=== PATIENT | female | born 1960 | race Caucasian/White ===

== ENCOUNTER 2016-08-28 02:54 | Emergency (ER) | payer MEDICARE, OTHER ==
[~2016-08-28] VITALS: Ht 165.1 cm; Wt 88.5 kg
[~2016-08-28 02:54] MED LIST: EXENINJ SC; FLUO20CA19 PO; INSLANTI SC; INSUINJ48 SC; LISI10TA6 PO; METH20TA PO; SODI500S PO
[2016-08-28 03:47] LABS: Basophils # (auto) 0.1 uL; Basophils % (auto) 0.8 % (0.0-2.0); Eosinophils # (auto) 0.3 uL; Eosinophils % (auto) 3.2 % (0.0-7.0); Lymphocytes # (auto) 1.7 uL; Lymphocytes % (auto) 21.6 % (10.0-50.0); Mean Corpuscular Hemoglobin 29.5 pg (28.0-32.0); Mean Corpuscular Hgb Conc. 33.4 g/dL (32.0-36.0); Mean Corpuscular Volume 88.5 fL (80.0-100.0); Mean Platelet Volume 8.1 fL (7.4-10.4); Monocytes # (auto) 0.5 uL; Monocytes % (auto) 6.9 % (0.0-12.0); Neutrophils # (auto) 5.2 uL; Neutrophils % (auto) 67.5 % (37.0-80.0); Platelet Count (auto) 353 10^3/uL (140-450); Red Cell Distribution Width 13.3 % (11.6-16.0); White Blood Cell 7.8 10^3/uL (4.4-10.8)
[2016-08-28 04:06] LABS: Albumin 3.7 g/dL (3.4-5.0); Anion Gap 7 (5-15); Aspartate Aminotransferase 10 U/L (15-37); Blood Urea Nitrogen 9 mg/dL (7-18); Calcium 8.6 mg/dL (8.5-10.1); Carbon Dioxide 31 mmol/L (21-32); Chloride 105 mmol/L (98-107); GFR African American 102 mL/min; GFR Non-African American 85 mL/min; Glucose 119 mg/dL (74-106); Potassium 4.1 mmol/L (3.5-5.1); Salicylate < 1.7 mg/dL (2.8-20.0); Sodium 143 mmol/L (136-145)
[2016-08-28 04:09] LABS: Alkaline Phosphatase 66 U/L (45-117); Bilirubin, Total 0.3 mg/dL (0.2-1.0); Total Protein 7.5 g/dL (6.4-8.2)
[2016-08-28 04:12] LABS: Urine RBC None Seen /hpf (0 - 4)
[2016-08-28 04:29] LABS: Acetaminophen < 2.0 ug/mL (10-30)
[2016-08-28 04:36] LABS: Urine Bilirubin Negative (Negative); Urine Blood Negative /uL (Negative); Urine Color Yellow (Yellow); Urine Glucose Normal (Normal); Urine Ketone TRACE (Negative); Urine Mucus FEW (None Seen); Urine Nitrite Negative (Negative)
[2016-08-28] MEDS ORDERED: LORazepam 2MG/ML-1ML VIAL IV ONE (05:45)
[2016-08-28] MEDS ORDERED: ALPRAZolam 0.25 MG TAB PO ONE (09:45)
[2016-08-28] MEDS ORDERED: ACETAMINOPHEN 325 MG TAB PO ONE (09:45)
[2016-08-28 16:00] VITALS: BP 197/114
== END 2016-08-28 16:58 | disposition home or self-care (01) ==
LOC: EDBD 02:54 → ER 03:00
DX: T41.291A Poisoning by other general anesthetics, accidental (unintentional), initial encounter (principal); F41.9 Anxiety disorder, unspecified; F32.9 Major depressive disorder, single episode, unspecified; E11.9 Type 2 diabetes mellitus without complications; I10 Essential (primary) hypertension; Z87.440 Personal history of urinary (tract) infections; Z98.51 Tubal ligation status; Z90.49 Acquired absence of other specified parts of digestive tract; Y93.89 Activity, other specified; Y99.8 Other external cause status; Y92.89 Other specified places as the place of occurrence of the external cause
CPT/HCPCS: 36415; 51702; 80053; 80320; 80329; 81001; 82550; 82962; 83615; 85025; 93005; 94761; 96374; 99285; G0434; J2060

== ENCOUNTER 2016-12-07 22:35 | Emergency (ER) | payer MEDICARE, OTHER ==
[~2016-12-07] VITALS: Ht 165.1 cm; Wt 86.2 kg
[2016-12-07 23:18] LABS: Basophils # (auto) 0 uL; Basophils % (auto) 0.4 % (0.0-2.0); CONDITION AutoValidated; Eosinophils # (auto) 0.1 uL; Hematocrit 45.8 % (36.0-46.0); Hemoglobin 15.3 g/dL (12.2-16.2); Lymphocytes # (auto) 2.8 uL; Lymphocytes % (auto) 34.4 % (10.0-50.0); Mean Corpuscular Hemoglobin 29.5 pg (28.0-32.0); Mean Corpuscular Hgb Conc. 33.5 g/dL (32.0-36.0); Mean Corpuscular Volume 88.2 fL (80.0-100.0); Mean Platelet Volume 7.9 fL (7.4-10.4); Monocytes # (auto) 0.5 uL; Monocytes % (auto) 6.3 % (0.0-12.0); Neutrophils # (auto) 4.6 uL; Neutrophils % (auto) 57.9 % (37.0-80.0); Platelet Count (auto) 297 10^3/uL (140-450); Red Cell Distribution Width 13.3 % (11.6-16.0)
[2016-12-07 23:39] LABS: Albumin 3.4 g/dL (3.4-5.0); BUN/Creatinine Ratio 26.2; Calcium 8.4 mg/dL (8.5-10.1); Potassium 4.1 mmol/L (3.5-5.1)
[2016-12-07 23:42] LABS: Bilirubin, Total 0.2 mg/dL (0.2-1.0); Total Protein 7.1 g/dL (6.4-8.2)
[2016-12-08 06:23] LABS: Urine Bilirubin Negative (Negative); Urine Blood Negative /uL (Negative); Urine Color Yellow (Yellow); Urine Glucose Normal (Normal); Urine Ketone Negative (Negative); Urine Mucus FEW (None Seen); Urine Nitrite Negative (Negative); Urine RBC 1 /hpf (0 - 4); Urine Squamous Epithelial Cell FEW /hpf (<5); Urine Urobilinogen Normal (Negative); Urine pH 6.5 (5.0-8.0)
[2016-12-08] MEDS ORDERED: SODIUM CHLORIDE 0.9% 1,000 ML IV ONE (07:00)
[2016-12-08] MEDS ORDERED: KETOROLAC TROMETH 30 MG/ML 1ML VIAL IV ONE (07:30)
[2016-12-08 07:32] LABS: Basophils # (auto) 0 uL; Basophils % (auto) 0.3 % (0.0-2.0); CONDITION AutoValidated; Eosinophils # (auto) 0 uL; Eosinophils % (auto) 0.7 % (0.0-7.0); Hemoglobin 14.6 g/dL (12.2-16.2); Lymphocytes # (auto) 2.4 uL; Lymphocytes % (auto) 32.3 % (10.0-50.0); Mean Corpuscular Hemoglobin 29.4 pg (28.0-32.0); Mean Corpuscular Hgb Conc. 33.3 g/dL (32.0-36.0); Mean Corpuscular Volume 88.3 fL (80.0-100.0); Monocytes # (auto) 0.4 uL; Monocytes % (auto) 5.7 % (0.0-12.0); Neutrophils # (auto) 4.5 uL; Platelet Count (auto) 277 10^3/uL (140-450); Red Cell Distribution Width 13.6 % (11.6-16.0); White Blood Cell 7.4 10^3/uL (4.4-10.8)
[2016-12-08 07:46] VITALS: BP 119/71
[2016-12-08 07:52] LABS: Albumin 3.3 g/dL (3.4-5.0); Anion Gap 9 (5-15); Calcium 8.6 mg/dL (8.5-10.1); Carbon Dioxide 25 mmol/L (21-32); Chloride 108 mmol/L (98-107); Glucose 88 mg/dL (74-106); Potassium 4.2 mmol/L (3.5-5.1); Sodium 142 mmol/L (136-145)
[2016-12-08 07:57] LABS: Aspartate Aminotransferase 13 U/L (15-37); BUN/Creatinine Ratio 26.9; Bilirubin, Total 0.2 mg/dL (0.2-1.0); Blood Urea Nitrogen 14 mg/dL (7-18); GFR African American 156 mL/min; GFR Non-African American 129 mL/min; Total Protein 6.8 g/dL (6.4-8.2)
[2016-12-08 07:59] LABS: Alkaline Phosphatase 73 U/L (45-117)
[2016-12-08] MEDS ORDERED: NITROFURANTOIN (MONO) 100 mg CAP PO ONE (08:00)
[2016-12-08] MEDS ORDERED: LORazepam 0.5 MG TAB PO ONE (08:00)
== END 2016-12-08 10:12 | disposition home or self-care (01) ==
LOC: ER 22:35 → EDBD 22:35 → ER 12-08 10:12
DX: N39.0 Urinary tract infection, site not specified (principal); F41.9 Anxiety disorder, unspecified; F32.9 Major depressive disorder, single episode, unspecified; E11.9 Type 2 diabetes mellitus without complications; I10 Essential (primary) hypertension; Z90.89 Acquired absence of other organs; Z98.51 Tubal ligation status; Z90.49 Acquired absence of other specified parts of digestive tract; Z88.2 Allergy status to sulfonamides; Z88.1 Allergy status to other antibiotic agents; Z79.4 Long term (current) use of insulin
CPT/HCPCS: 36415; 80053; 80307; 81001; 84484; 85025; 93005; 96374; 99285; J1885; J7030

== ENCOUNTER 2017-06-02 20:43 | Emergency (ER) | payer BC, MEDICARE ==
[~2017-06-02] VITALS: Ht 175.3 cm; Wt 90.7 kg
[2017-06-02 23:50] LABS: Basophils # (auto) 0.1 uL; Basophils % (auto) 0.6 % (0.0-2.0); Eosinophils # (auto) 0.1 uL; Eosinophils % (auto) 0.8 % (0.0-7.0); Hematocrit 41.2 % (36.0-46.0); Lymphocytes # (auto) 1.7 uL; Lymphocytes % (auto) 18.9 % (10.0-50.0); Mean Corpuscular Hemoglobin 30.2 pg (28.0-32.0); Mean Corpuscular Volume 88.9 fL (80.0-100.0); Mean Platelet Volume 7.7 fL (6.9-10.8); Monocytes # (auto) 0.6 uL; Monocytes % (auto) 6.7 % (0.0-12.0); Neutrophils # (auto) 6.6 uL; Platelet Count (auto) 196 10^3/uL (140-450); Red Cell Distribution Width 13.6 % (11.8-14.3); White Blood Cell 9.1 10^3/uL (4.4-10.8)
[2017-06-03 00:02] LABS: Albumin 3.3 g/dL (3.4-5.0); Anion Gap 7 (5-15); Aspartate Aminotransferase 15 U/L (15-37); BUN/Creatinine Ratio 29.3; Blood Urea Nitrogen 17 mg/dL (7-18); Calcium 8.2 mg/dL (8.5-10.1); Carbon Dioxide 26 mmol/L (21-32); Chloride 105 mmol/L (98-107); GFR African American 137 mL/min; GFR Non-African American 113 mL/min; Glucose 108 mg/dL (74-106); Potassium 3.7 mmol/L (3.5-5.1); Sodium 138 mmol/L (136-145)
[2017-06-03 00:05] LABS: INR 0.98 (0.9-1.15); Partial Thromboplastin Time 25.3 sec (22.64-33.71); Prothrombin Time 10.7 sec (9.37-12.3)
[2017-06-03 00:07] LABS: Alkaline Phosphatase 77 U/L (45-117); Bilirubin, Total 0.3 mg/dL (0.2-1.0); Magnesium 1.8 mg/dL (1.6-2.6); Total Protein 6.8 g/dL (6.4-8.2)
[2017-06-03 00:15] LABS: Urine RBC None Seen /hpf (0 - 4)
[2017-06-03 00:21] LABS: Urine Bilirubin Negative (Negative); Urine Blood Negative /uL (Negative); Urine Color Yellow (Yellow); Urine Glucose Normal (Normal); Urine Ketone Negative (Negative); Urine Nitrite Negative (Negative); Urine Urobilinogen Normal (Negative); Urine pH 6.5 (5.0-8.0)
[2017-06-03 01:44] VITALS: BP 95/58
== END 2017-06-03 02:05 | disposition home or self-care (01) ==
LOC: EDBD 20:43 → ER 20:43
DX: S16.1XXA Strain of muscle, fascia and tendon at neck level, initial encounter (principal); S09.90XA Unspecified injury of head, initial encounter; R41.3 Other amnesia; E11.9 Type 2 diabetes mellitus without complications; I10 Essential (primary) hypertension; F32.9 Major depressive disorder, single episode, unspecified; Z98.51 Tubal ligation status; Z88.2 Allergy status to sulfonamides; Z88.8 Allergy status to other drugs, medicaments and biological substances; Z90.49 Acquired absence of other specified parts of digestive tract
CPT/HCPCS: 36415; 70450; 71010; 72125; 80053; 80307; 81001; 83735; 84484; 85025; 85610; 85730; 93005

== ENCOUNTER 2017-08-21 13:41 | Observation (INO) | payer BC, MEDICARE ==
[~2017-08-21] VITALS: Ht 165.1 cm; Wt 92.1 kg
[2017-08-21] MEDS ORDERED: MORPHINE SULFATE 4 MG/ML SYR/VIAL IV ONE ×2 (17:00→17:45)
[2017-08-21] MEDS ORDERED: ETOMIDATE (2MG/ML) 20ML VIAL IV ONE (17:00)
[2017-08-21] MEDS ORDERED: SODIUM CHLORIDE 0.9% 500 ML IVB ONE (17:00)
[2017-08-21] MEDS ORDERED: ONDANSETRON HCL 4 MG/2 ML VIAL IV ONE (17:00)
[2017-08-21] MEDS ORDERED: MORPHINE SULFATE 4 MG/ML SYR/VIAL ONE (17:37)
[2017-08-21 18:40] VITALS: BP 121/74
== END 2017-08-21 19:01 | disposition home or self-care (01) | DRG 563 ==
LOC: ER 13:41 → EDBD 13:41 → OVERFLOW 17:01 → ER 18:59
PROVIDERS: ADMIT Family Medicine; ATTEND Family Medicine
DX: S82.851A Displaced trimalleolar fracture of right lower leg, initial encounter for closed fracture (principal); I10 Essential (primary) hypertension; W01.0XXA Fall on same level from slipping, tripping and stumbling without subsequent striking against object, initial encounter; Y92.89 Other specified places as the place of occurrence of the external cause; Y93.89 Activity, other specified; Y99.8 Other external cause status
CPT/HCPCS: 73600; 96361; 96374; 96375; 96376; 99285; G0378; J2270; J2405; J7040

== ENCOUNTER 2017-08-25 15:02 | Inpatient (IN) | payer MEDICARE, OTHER ==
[~2017-08-25] VITALS: Ht 165.1 cm; Wt 95.8 kg
[2017-08-25] MEDS ORDERED: FLUO-125 PO (15:48)
[2017-08-25] MEDS ORDERED: NITROGLYCERIN 0.4 MG SL TAB SL PRN (16:45)
[2017-08-25] MEDS ORDERED: SODIUM CHLORIDE 0.9% 1,000 ML IV SCH (16:45)
[2017-08-25] MEDS ORDERED: MORPHINE SULFATE 4 MG/ML SYR/VIAL IV PRN (16:45)
[2017-08-25] MEDS ORDERED: ONDANSETRON ODT 4 MG TAB PO PRN (16:45)
[2017-08-25] MEDS: HYDROcodone-ACET 5/325MG TAB PO PRN ×2 (17:37→23:35)
[2017-08-25 17:40] LABS: Basophils # (auto) 0.1 uL; Basophils % (auto) 0.7 % (0.0-2.0); Eosinophils # (auto) 0 uL; Eosinophils % (auto) 0.6 % (0.0-7.0); Hematocrit 41.9 % (36.0-46.0); Lymphocytes # (auto) 1.9 uL; Lymphocytes % (auto) 24.3 % (10.0-50.0); Mean Corpuscular Hemoglobin 29.7 pg (28.0-32.0); Mean Corpuscular Hgb Conc. 33.5 g/dL (32.0-36.0); Mean Corpuscular Volume 88.7 fL (80.0-100.0); Monocytes # (auto) 0.7 uL; Monocytes % (auto) 9.1 % (0.0-12.0); Neutrophils % (auto) 65.3 % (37.0-80.0); Nucleated Red Blood Cells % 0.1 %; Platelet Count (auto) 268 10^3/uL (140-450); Red Blood Cells 4.72 10^6/uL (4.0-5.20); Red Cell Distribution Width 13.1 % (11.8-14.3); White Blood Cell 7.7 10^3/uL (4.4-10.8)
[2017-08-25 17:51] LABS: INR 0.99 (0.9-1.15); Prothrombin Time 10.8 sec (9.37-12.3)
[2017-08-25 18:06] LABS: Albumin 3.5 g/dL (3.4-5.0); BUN/Creatinine Ratio 23.3; Bilirubin, Total 0.7 mg/dL (0.2-1.0); Calcium 9.1 mg/dL (8.5-10.1); Potassium 3.9 mmol/L (3.5-5.1); Total Protein 7.4 g/dL (6.4-8.2)
[2017-08-25] MEDS: XYREM PO SCH ×2 (21:00→23:30)
[2017-08-25 21:08] LABS: Urine Bacteria NONE SEEN /hpf (None Seen); Urine Blood Negative /uL (Negative); Urine Mucus FEW (None Seen); Urine Specific Gravity 1.029 (1.001-1.035); Urine WBC 126 /hpf (0 - 5)
[2017-08-25] MEDS: ACETAMINOPHEN 325 MG TAB PO PRN (21:12)
[2017-08-25 22:00] VITALS: BP 109/67
[2017-08-25] MEDS ORDERED: PATIENTS OWN MEDICATION PO SCH (22:00)
[2017-08-26] MEDS ORDERED: LACTATED RINGER'S 1,000 ML IV ONE ×2 (04:00→17:45)
[2017-08-26 05:00] VITALS: BP 124/68
[2017-08-26] MEDS: HYDROcodone-ACET 5/325MG TAB PO PRN (05:36)
[2017-08-26] MEDS ORDERED: HYDROcodone-ACET 5/325MG TAB PO PRN ×2 (06:45→17:45)
[2017-08-26] MEDS ORDERED: HYDROmorphone HCL 2 MG/ML VL IV PRN ×2 (06:45→16:30)
[2017-08-26 08:00] VITALS: BP 134/67
[2017-08-26] MEDS: PANTOPRAZOLE 40 MG TAB PO SCH (09:54)
[2017-08-26] MEDS: FLUoxetine HCL 20 MG CAP PO SCH (09:54)
[2017-08-26] MEDS: MORPHINE SULFATE 4 MG/ML SYR/VIAL IV PRN ×2 (09:54→12:57)
[2017-08-26] MEDS: LISINOPRIL 10 MG TAB PO SCH (09:55)
[2017-08-26 12:00] VITALS: BP 113/59
[2017-08-26] MEDS ORDERED: ceFAZolin 1GM/50ML 100 ML IV ONE ×2 (14:34→22:28)
[2017-08-26] MEDS ORDERED: BUPIVACAINE 0.25% INJ 50ML VIAL ONE (15:12)
[2017-08-26] MEDS ORDERED: MIDAZOLAM HCL 1MG/1ML-2 ML VIAL ONE (15:24)
[2017-08-26] MEDS ORDERED: fentaNYL CITRATE 100 MCG/2 ML VL ONE (15:24)
[2017-08-26] MEDS ORDERED: MEPERIDINE HCL (50 MG/ML) 1 ML VIAL ONE ×2 (15:25→15:38)
[2017-08-26] MEDS ORDERED: DEXAMETHASONE SOD PHOS 10MG/1ML VIAL INJ ONE (15:38)
[2017-08-26] MEDS ORDERED: PROPOFOL 10 MG/ML 20 ML IV ONE (15:38)
[2017-08-26] MEDS ORDERED: MORPHINE SULFATE 4 MG/ML SYR/VIAL IV PRN (16:30)
[2017-08-26] MEDS ORDERED: hydrALAZINE HCL 20 MG/ML VL IV PRN (16:30)
[2017-08-26] MEDS ORDERED: ePHEDrine SULFATE 50 MG/ML AMP IV PRN (16:30)
[2017-08-26] MEDS ORDERED: MIDAZOLAM HCL 1MG/1ML-2 ML VIAL IV PRN (16:30)
[2017-08-26] MEDS ORDERED: ONDANSETRON HCL 4 MG/2 ML VIAL IV ONE (16:30)
[2017-08-26] MEDS ORDERED: KETOROLAC TROMETH 30 MG/ML 1ML VIAL IV ONE (16:30)
[2017-08-26] MEDS ORDERED: ACCU-CHEK COMFORT CURVE STRIP VI ONE (16:30)
[2017-08-26] MEDS ORDERED: LABETALOL HCL 5 MG/ML 4ML SYRINGE IV PRN (16:30)
[2017-08-26] MEDS ORDERED: KETOROLAC TROMETH 30 MG/ML 1ML VIAL ONE ×2 (16:36→18:44)
[2017-08-26] MEDS ORDERED: PHENYLEPHRINE HCL 10 MG/ML VL ONE (16:42)
[2017-08-26] MEDS ORDERED: MORPHINE SULFATE 4 MG/ML SYR/VIAL IV ONE (18:00)
[2017-08-26 21:30] VITALS: BP 118/65
[2017-08-26] MEDS: ceFAZolin 1GM 2 GM in D5W 5% 100 ML IV SCH (22:39)
[2017-08-26] MEDS: oxyCODONE ER 10 MG TAB PO SCH (22:41)
[2017-08-27] MEDS: MORPHINE SULFATE 4 MG/ML SYR/VIAL IV PRN ×8 (00:04→18:55)
[2017-08-27 05:00] VITALS: BP 101/61
[2017-08-27 05:34] LABS: Basophils # (auto) 0 uL; Basophils % (auto) 0.3 % (0.0-2.0); Eosinophils # (auto) 0 uL; Eosinophils % (auto) 0.1 % (0.0-7.0); Hematocrit 34.2 % (36.0-46.0); Hemoglobin 11.5 g/dL (12.2-16.2); Lymphocytes # (auto) 0.4 uL; Lymphocytes % (auto) 5.9 % (10.0-50.0); Mean Corpuscular Hgb Conc. 33.7 g/dL (32.0-36.0); Mean Corpuscular Volume 88.9 fL (80.0-100.0); Monocytes # (auto) 0.5 uL; Neutrophils # (auto) 6.1 uL; Neutrophils % (auto) 86.7 % (37.0-80.0); Platelet Count (auto) 229 10^3/uL (140-450); Red Blood Cells 3.85 10^6/uL (4.0-5.20); Red Cell Distribution Width 12.6 % (11.8-14.3)
[2017-08-27] MEDS ORDERED: ceFAZolin 1GM/50ML 100 ML IV ONE (05:37)
[2017-08-27 05:51] LABS: Potassium 4.1 mmol/L (3.5-5.1)
[2017-08-27 05:56] LABS: Albumin 2.4 g/dL (3.4-5.0); BUN/Creatinine Ratio 25.6; Calcium 7.9 mg/dL (8.5-10.1)
[2017-08-27 05:58] LABS: Bilirubin, Total 0.4 mg/dL (0.2-1.0)
[2017-08-27] MEDS: ceFAZolin 1GM 2 GM in D5W 5% 100 ML IV SCH ×3 (05:58→16:03)
[2017-08-27 09:00] VITALS: BP 102/56
[2017-08-27] MEDS: oxyCODONE ER 10 MG TAB PO SCH ×2 (11:51→21:39)
[2017-08-27] MEDS: PANTOPRAZOLE 40 MG TAB PO SCH (11:51)
[2017-08-27] MEDS: FLUoxetine HCL 20 MG CAP PO SCH (11:52)
[2017-08-27] MEDS: LISINOPRIL 10 MG TAB PO SCH (11:52)
[2017-08-27] MEDS: ENOXAPARIN SOD 40 MG/0.4 ML SYRINGE SC SCH (11:53)
[2017-08-27 12:56] VITALS: BP 136/73
[2017-08-27] MEDS: ACETAMINOPHEN 325 MG TAB PO PRN (16:19)
[2017-08-27 17:00] VITALS: BP 121/95
[2017-08-27 22:12] VITALS: BP 111/52
[2017-08-28] MEDS: MORPHINE SULFATE 4 MG/ML SYR/VIAL IV PRN ×4 (01:07→14:37)
[2017-08-28 05:27] LABS: Hematocrit 36.9 % (36.0-46.0); Hemoglobin 12.5 g/dL (12.2-16.2); Mean Corpuscular Hemoglobin 29.9 pg (28.0-32.0); Mean Corpuscular Volume 87.9 fL (80.0-100.0); Platelet Count (auto) 183 10^3/uL (140-450); Red Blood Cells 4.19 10^6/uL (4.0-5.20); White Blood Cell 2.5 10^3/uL (4.4-10.8)
[2017-08-28 05:29] VITALS: BP 115/56
[2017-08-28 05:37] LABS: Potassium 3.7 mmol/L (3.5-5.1)
[2017-08-28 06:02] LABS: Basophils % (manual) 0 (0.0-2.0); Blast Cells 0; Eosinophils % (manual) 0 (0-7); Myelocytes % 0; Promyelocytes % 0; Reactive Lymphocytes 0
[2017-08-28 06:52] LABS: Band Neutrophils % (manual) 5; Lymphocytes % (manual) 18 (10.0-50.0); Metamyelocytes % 1; Monocytes % (manual) 1 (0-12)
[2017-08-28 08:27] VITALS: BP 118/60
[2017-08-28] MEDS: oxyCODONE ER 10 MG TAB PO SCH (09:23)
[2017-08-28] MEDS: PANTOPRAZOLE 40 MG TAB PO SCH (09:23)
[2017-08-28] MEDS: FLUoxetine HCL 20 MG CAP PO SCH (09:25)
[2017-08-28] MEDS: LISINOPRIL 10 MG TAB PO SCH (09:25)
[2017-08-28] MEDS: ENOXAPARIN SOD 40 MG/0.4 ML SYRINGE SC SCH (09:26)
[2017-08-28 11:45] VITALS: BP 142/67
== END 2017-08-28 15:30 | disposition home health service (06) | DRG 494 ==
LOC: TELE-WESTW 15:02
PROVIDERS: ADMIT Internal Medicine; ATTEND Internal Medicine
PROC: 0QSGXZZ Reposition Right Tibia, External Approach (ICD-10-PCS; 2017-08-26)
PROC: BW1C1ZZ Fluoroscopy of Lower Extremity using Low Osmolar Contrast (ICD-10-PCS; 2017-08-26)
PROC: 0QSJ04Z Reposition Right Fibula with Internal Fixation Device, Open Approach (ICD-10-PCS; principal; 2017-08-26 15:32)
DX: S82.874A Nondisplaced pilon fracture of right tibia, initial encounter for closed fracture (principal); E11.9 Type 2 diabetes mellitus without complications; S82.854A Nondisplaced trimalleolar fracture of right lower leg, initial encounter for closed fracture; E66.9 Obesity, unspecified; F32.9 Major depressive disorder, single episode, unspecified; I10 Essential (primary) hypertension; M19.90 Unspecified osteoarthritis, unspecified site; W18.39XA Other fall on same level, initial encounter; Z82.49 Family history of ischemic heart disease and other diseases of the circulatory system; Z83.3 Family history of diabetes mellitus; Z90.49 Acquired absence of other specified parts of digestive tract; Z68.35 Body mass index [BMI] 35.0-35.9, adult; Y93.89 Activity, other specified; Y92.89 Other specified places as the place of occurrence of the external cause; Y99.8 Other external cause status
CPT/HCPCS: 36415; 71045; 73600; 76001; 80048; 80053; 81001; 82962; 85007; 85025; 85027; 85610; 86850; 86900; 86901; 97116; 97163; 97530; C1713; C1769; J0330; J0690; J1100; J1885; J2250; J2704; J3490; J7060

== ENCOUNTER 2020-02-11 13:44 | Emergency (ER) | payer BC, MEDICARE, OTHER ==
[~2020-02-11] VITALS: Ht 162.6 cm; Wt 102.1 kg
[~2020-02-11 13:44] MED LIST changes: -EXENINJ SC; +FLUO-125 PO; -FLUO20CA19 PO; -INSLANTI SC; -INSUINJ48 SC; +LISI-648 PO; -LISI10TA6 PO; -METH20TA PO
[2020-02-11] MEDS ORDERED: ETOMIDATE (2MG/ML) 20ML VIAL IV ONE (15:00)
[2020-02-11 18:45] VITALS: BP 154/74
== END 2020-02-11 16:49 | disposition home or self-care (01) ==
LOC: ER 13:44
DX: S43.005A Unspecified dislocation of left shoulder joint, initial encounter (principal); I10 Essential (primary) hypertension; Z88.2 Allergy status to sulfonamides; Z88.8 Allergy status to other drugs, medicaments and biological substances; W01.198A Fall on same level from slipping, tripping and stumbling with subsequent striking against other object, initial encounter; Y93.01 Activity, walking, marching and hiking; Y92.89 Other specified places as the place of occurrence of the external cause; Y99.8 Other external cause status
CPT/HCPCS: 23650; 73020; 73030; 99152

== ENCOUNTER 2021-08-17 22:39 | Emergency (ER) | payer BC ==
[~2021-08-17] VITALS: Ht 162.6 cm; Wt 104.3 kg
[~2021-08-17 22:39] MED LIST changes: -LISI-648 PO; +LISI-716 PO
[2021-08-18 00:37] LABS: Basophils # (auto) 0.1 10 ^3/uL (0-0.2); Basophils % (auto) 1.2 % (0.0-2.0); Eosinophils # (auto) 0.1 10 ^3/uL (0-0.8); Eosinophils % (auto) 1.8 % (0.0-7.0); Hematocrit 45.7 % (36.0-46.0); Hemoglobin 15.4 g/dL (12.2-16.2); Lymphocytes # (auto) 2.3 10 ^3/uL (0.4-5.4); Lymphocytes % (auto) 30.9 % (10.0-50.0); Mean Corpuscular Hemoglobin 29.9 pg (28.0-32.0); Mean Corpuscular Hgb Conc. 33.8 g/dL (32.0-36.0); Mean Corpuscular Volume 88.5 fL (80.0-100.0); Monocytes # (auto) 0.4 10 ^3/uL (0-1.3); Monocytes % (auto) 5.9 % (0.0-12.0); Neutrophils # (auto) 4.5 10 ^3/uL (1.6-8.6); Neutrophils % (auto) 60.2 % (37.0-80.0); Nucleated Red Blood Cells % 0.2 %; Red Blood Cells 5.16 10^6/uL (4.0-5.20); Red Cell Distribution Width 13.8 % (11.8-14.3); White Blood Cell 7.4 10^3/uL (4.4-10.8)
[2021-08-18 00:59] LABS: Albumin 3.8 g/dL (3.4-5.0); BUN/Creatinine Ratio 18.2; Calcium 8.9 mg/dL (8.5-10.1); Potassium 5.3 mmol/L (3.5-5.1)
[2021-08-18 01:02] LABS: Bilirubin, Total 0.3 mg/dL (0.2-1.0); Total Protein 7.5 g/dL (6.4-8.2)
[2021-08-18] MEDS ORDERED: IOHEXOL 300 MG/ML 100ML BOTTLE IJ ONE (01:26)
[2021-08-18] MEDS ORDERED: OXYCODONE W/ ACETAMINOPHEN 5/325MG TABLET PO ONE (03:45)
[2021-08-18 04:01] LABS: Urine Bacteria FEW /hpf (None Seen); Urine Blood Negative /uL (Negative); Urine WBC 10 /hpf (0 - 5)
[2021-08-18] MEDS ORDERED: SODIUM CHLORIDE 0.9% 2,000 ML IV ONE (05:15)
[2021-08-18] MEDS ORDERED: CEPH500C PO ×2 (05:36→07:02)
[2021-08-18] MEDS ORDERED: ONDA-144 PO ×2 (05:36→07:02)
[2021-08-18 06:40] VITALS: BP 142/71
== END 2021-08-18 06:55 | disposition home or self-care (01) ==
LOC: ER 22:39
DX: R42 Dizziness and giddiness (principal); I10 Essential (primary) hypertension; Z90.89 Acquired absence of other organs; Z90.49 Acquired absence of other specified parts of digestive tract; Z98.51 Tubal ligation status; Z88.2 Allergy status to sulfonamides; Z88.8 Allergy status to other drugs, medicaments and biological substances
CPT/HCPCS: 36415; 70460; 70491; 80053; 81001; 83880; 84484; 85025; 93005; 96360; 99285; J7030; Q9967

== ENCOUNTER 2021-11-02 06:32 | Inpatient (IN) | payer MEDICARE, BC ==
[~2021-11-02] VITALS: Ht 162.6 cm; Wt 116.8 kg
[~2021-11-02 06:32] MED LIST changes: +CEPH500C PO; +ONDA-144 PO
[2021-11-02] MEDS ORDERED: ONDANSETRON HCL 4 MG/2 ML VIAL IV ONE (07:00)
[2021-11-02] MEDS ORDERED: SODIUM CHLORIDE 0.9% 1,000 ML IV ONE (07:00)
[2021-11-02] MEDS ORDERED: InsuLIN REG 1unit/0.01ml Soln (100units/ml) IV ONE (07:00)
[2021-11-02 08:24] LABS: Basophils # (auto) 0.1 10 ^3/uL (0-0.2); Eosinophils # (auto) 0.1 10 ^3/uL (0-0.8); Eosinophils % (auto) 2.8 % (0.0-7.0); Hematocrit 40.3 % (36.0-46.0); Hemoglobin 13.5 g/dL (12.2-16.2); Lymphocytes # (auto) 1.1 10 ^3/uL (0.4-5.4); Lymphocytes % (auto) 21.7 % (10.0-50.0); Mean Corpuscular Hemoglobin 27.5 pg (28.0-32.0); Mean Corpuscular Hgb Conc. 33.4 g/dL (32.0-36.0); Mean Corpuscular Volume 82.3 fL (80.0-100.0); Monocytes # (auto) 0.4 10 ^3/uL (0-1.3); Monocytes % (auto) 7.4 % (0.0-12.0); Neutrophils # (auto) 3.4 10 ^3/uL (1.6-8.6); Neutrophils % (auto) 67.1 % (37.0-80.0); Nucleated Red Blood Cells % 0.1 %; Red Cell Distribution Width 15.4 % (11.8-14.3); White Blood Cell 5.1 10^3/uL (4.4-10.8)
[2021-11-02 08:45] LABS: Albumin 3.1 g/dL (3.4-5.0); Calcium 8.1 mg/dL (8.5-10.1); Potassium 4.5 mmol/L (3.5-5.1)
[2021-11-02 08:50] LABS: BUN/Creatinine Ratio 11.9; Bilirubin, Total 0.2 mg/dL (0.2-1.0); Total Protein 6.9 g/dL (6.4-8.2)
[2021-11-02 08:54] LABS: Urine Bacteria NONE SEEN /hpf (None Seen); Urine Blood TRACE /uL (Negative); Urine Specific Gravity 1.031 (1.001-1.035); Urine WBC 580 /hpf (0 - 5); Urine WBC Clumps PRESENT /hpf (None Seen)
[2021-11-02] MEDS ORDERED: cefTRIAXone 1GM/50ML D5W 50 ML IV ONE (09:15)
[2021-11-02] MEDS ORDERED: DEXTROSE (50%) 50ML SYRG IV PRN (11:45)
[2021-11-02] MEDS ORDERED: ONDANSETRON HCL 4 MG/2 ML VIAL IV PRN (11:45)
[2021-11-02] MEDS ORDERED: hydrALAZINE HCL 20 MG/ML VL IV PRN (12:15)
[2021-11-02] MEDS: InsuLIN REG 1unit/0.01ml Soln (100units/ml) SC SCH ×3 (12:54→20:15)
[2021-11-02] MEDS: ACCU-CHEK COMFORT CURVE STRIP VI SCH ×3 (12:54→20:15)
[2021-11-02 13:31] LABS: Cholesterol 134 mg/dL (< 200)
[2021-11-02 13:35] LABS: HDL Cholesterol 43 mg/dL (40-59); LDL Cholesterol 69 mg/dL (< 100); Triglycerides 199 mg/dL (< 150)
[2021-11-02 14:47] VITALS: BP 141/76
[2021-11-02] MEDS ORDERED: METF-370 PO (15:29)
[2021-11-02] MEDS ORDERED: PITO17.8 PO (15:31)
[2021-11-02] MEDS ORDERED: AMIT10TA8 PO (15:33)
[2021-11-02 17:19] VITALS: BP_SYST 151; BP_SYST 152; BP_DIAS 86; BP_DIAS 95
[2021-11-02] MEDS: MORPHINE SULFATE INJECTION 2 MG/ML SYRG IV PRN (20:49)
[2021-11-02 22:00] VITALS: BP 169/96
[2021-11-02 23:00] VITALS: BP 119/80
[2021-11-03] MEDS: ACCU-CHEK COMFORT CURVE STRIP VI SCH ×6 (00:06→22:00)
[2021-11-03] MEDS: InsuLIN REG 1unit/0.01ml Soln (100units/ml) SC SCH ×4 (00:08→21:36)
[2021-11-03] MEDS: MORPHINE SULFATE INJECTION 2 MG/ML SYRG IV PRN ×3 (00:59→22:10)
[2021-11-03] MEDS: HYDROcodone-ACET 5/325MG TAB PO PRN (03:09)
[2021-11-03 04:47] VITALS: BP 133/78
[2021-11-03 05:45] LABS: Albumin 2.9 g/dL (3.4-5.0); Calcium 8.3 mg/dL (8.5-10.1); Potassium 3.5 mmol/L (3.5-5.1)
[2021-11-03 05:46] LABS: BUN/Creatinine Ratio 11.9
[2021-11-03 05:50] LABS: Bilirubin, Total 0.4 mg/dL (0.2-1.0)
[2021-11-03 05:51] LABS: Basophils # (auto) 0 10 ^3/uL (0-0.2); Basophils % (auto) 0.8 % (0.0-2.0); Eosinophils # (auto) 0.2 10 ^3/uL (0-0.8); Hematocrit 39.2 % (36.0-46.0); Hemoglobin 12.9 g/dL (12.2-16.2); Lymphocytes # (auto) 1.7 10 ^3/uL (0.4-5.4); Lymphocytes % (auto) 31.8 % (10.0-50.0); Mean Corpuscular Hgb Conc. 32.9 g/dL (32.0-36.0); Mean Corpuscular Volume 81.9 fL (80.0-100.0); Monocytes # (auto) 0.4 10 ^3/uL (0-1.3); Neutrophils % (auto) 57.4 % (37.0-80.0); Nucleated Red Blood Cells % 0.1 %; Red Blood Cells 4.79 10^6/uL (4.0-5.20); Red Cell Distribution Width 15.3 % (11.8-14.3); White Blood Cell 5.3 10^3/uL (4.4-10.8)
[2021-11-03] MEDS: cefTRIAXone 1GM/50ML D5W 50 ML IV SCH (08:41)
[2021-11-03] MEDS: ENOXAPARIN SOD 40 MG/0.4 ML SYRINGE SC SCH (08:42)
[2021-11-03 09:00] VITALS: BP_SYST 114; BP_SYST 127; BP_DIAS 72; BP_DIAS 75
[2021-11-03 13:00] VITALS: BP 136/75
[2021-11-03 17:00] VITALS: BP 137/74
[2021-11-03] MEDS: metFORMIN HYDROCHLORIDE 850 MG TAB PO SCH (18:00)
[2021-11-03] MEDS ORDERED: glipiZIDE 5 MG TAB PO SCH (18:00)
[2021-11-03] MEDS ORDERED: DEXTROSE (50%) 50ML SYRG IV PRN (19:00)
[2021-11-03 20:00] VITALS: BP 118/63
[2021-11-03 21:56] VITALS: BP 118/68
[2021-11-04] MEDS: MORPHINE SULFATE INJECTION 2 MG/ML SYRG IV PRN ×4 (03:22→20:49)
[2021-11-04 04:51] VITALS: BP 118/68
[2021-11-04] MEDS: ACCU-CHEK COMFORT CURVE STRIP VI SCH ×4 (05:37→22:43)
[2021-11-04] MEDS: InsuLIN REG 1unit/0.01ml Soln (100units/ml) SC SCH ×4 (05:39→23:01)
[2021-11-04] MEDS: HYDROcodone-ACET 5/325MG TAB PO PRN ×2 (06:10→12:29)
[2021-11-04 09:00] VITALS: BP 120/66
[2021-11-04] MEDS: ENOXAPARIN SOD 40 MG/0.4 ML SYRINGE SC SCH (09:17)
[2021-11-04] MEDS: metFORMIN HYDROCHLORIDE 850 MG TAB PO SCH ×2 (09:17→17:08)
[2021-11-04] MEDS: cefTRIAXone 1GM/50ML D5W 50 ML IV SCH (09:17)
[2021-11-04 13:00] VITALS: BP 120/76
[2021-11-04 17:00] VITALS: BP 126/67
[2021-11-04 22:00] VITALS: BP 136/63
[2021-11-04] MEDS ORDERED: AMITRIPTYLINE HCL 10 MG TAB PO ONE (22:30)
[2021-11-05] MEDS: HYDROcodone-ACET 5/325MG TAB PO PRN ×2 (01:07→06:59)
[2021-11-05] MEDS: MORPHINE SULFATE INJECTION 2 MG/ML SYRG IV PRN ×2 (02:41→12:23)
[2021-11-05 05:00] VITALS: BP 124/65
[2021-11-05] MEDS: ACCU-CHEK COMFORT CURVE STRIP VI SCH ×2 (06:05→11:30)
[2021-11-05] MEDS: InsuLIN REG 1unit/0.01ml Soln (100units/ml) SC SCH ×2 (06:08→12:28)
[2021-11-05 09:00] VITALS: BP 106/73
[2021-11-05] MEDS: metFORMIN HYDROCHLORIDE 850 MG TAB PO SCH (09:55)
[2021-11-05] MEDS: ENOXAPARIN SOD 40 MG/0.4 ML SYRINGE SC SCH (09:55)
[2021-11-05] MEDS: cefTRIAXone 1GM/50ML D5W 50 ML IV SCH (09:56)
[2021-11-05 13:00] VITALS: BP 135/77
[2021-11-05 17:14] VITALS: BP 135/77
[2021-11-05 17:18] VITALS: BP 135/77
== END 2021-11-05 17:20 | disposition home or self-care (01) | DRG 638 ==
LOC: ER 06:32 → OVERFLOW 11:44 → CENTRAL 13:49
PROVIDERS: ADMIT Registered Nurse; ATTEND Internal Medicine
DX: E11.65 Type 2 diabetes mellitus with hyperglycemia (principal); N39.0 Urinary tract infection, site not specified; Z68.41 Body mass index [BMI] 40.0-44.9, adult; E66.01 Morbid (severe) obesity due to excess calories; F41.9 Anxiety disorder, unspecified; G56.03 Carpal tunnel syndrome, bilateral upper limbs; R31.9 Hematuria, unspecified; I10 Essential (primary) hypertension; Z88.2 Allergy status to sulfonamides; Z88.1 Allergy status to other antibiotic agents; Z82.49 Family history of ischemic heart disease and other diseases of the circulatory system; Z83.3 Family history of diabetes mellitus; Z98.51 Tubal ligation status; Z90.49 Acquired absence of other specified parts of digestive tract; Z98.1 Arthrodesis status
CPT/HCPCS: 36415; 71045; 80053; 80061; 81001; 82010; 82962; 83036; 83735; 85025; 87086; 87088; 87186; 93005; 96361; 96365; 96375; G0378; J0696; J1815

== ENCOUNTER 2022-02-19 09:12 | Emergency (ER) | payer BC, MEDICARE, OTHER ==
[~2022-02-19] VITALS: Ht 162.6 cm; Wt 113.6 kg
[~2022-02-19 09:12] MED LIST changes: +AMIT10TA8 PO; -CEPH500C PO; +METF-370 PO; -ONDA-144 PO; +PITO17.8 PO
[2022-02-19] MEDS: SODIUM CHLORIDE 0.9% 1,000 ML IV ONE (09:45)
[2022-02-19] MEDS: InsuLIN REG 1unit/0.01ml Soln (100units/ml) IV ONE (10:03)
[2022-02-19 10:35] LABS: Basophils # (auto) 0 10 ^3/uL (0-0.2); Basophils % (auto) 0.6 % (0.0-2.0); Eosinophils # (auto) 0.1 10 ^3/uL (0-0.8); Eosinophils % (auto) 1.2 % (0.0-7.0); Hematocrit 45.7 % (36.0-46.0); Hemoglobin 14.7 g/dL (12.2-16.2); Lymphocytes # (auto) 1.2 10 ^3/uL (0.4-5.4); Lymphocytes % (auto) 19.4 % (10.0-50.0); Mean Corpuscular Hemoglobin 27.4 pg (28.0-32.0); Mean Corpuscular Hgb Conc. 32.1 g/dL (32.0-36.0); Mean Corpuscular Volume 85.5 fL (80.0-100.0); Monocytes # (auto) 0.5 10 ^3/uL (0-1.3); Monocytes % (auto) 8.3 % (0.0-12.0); Neutrophils # (auto) 4.3 10 ^3/uL (1.6-8.6); Neutrophils % (auto) 70.5 % (37.0-80.0); Nucleated Red Blood Cells % 0.1 %; Red Blood Cells 5.35 10^6/uL (4.0-5.20); Red Cell Distribution Width 14.3 % (11.8-14.3); White Blood Cell 6.1 10^3/uL (4.4-10.8)
[2022-02-19 10:52] LABS: Urine Bacteria MANY /hpf (None Seen); Urine Blood 1+ /uL (Negative); Urine Specific Gravity 1.028 (1.001-1.035); Urine WBC 283 /hpf (0 - 5); Urine WBC Clumps PRESENT /hpf (None Seen)
[2022-02-19 10:58] LABS: Albumin 3.5 g/dL (3.4-5.0); Calcium 9.8 mg/dL (8.5-10.1); Potassium 4.8 mmol/L (3.5-5.1)
[2022-02-19 11:07] LABS: BUN/Creatinine Ratio 7.6; Bilirubin, Total 0.2 mg/dL (0.2-1.0); Total Protein 7.2 g/dL (6.4-8.2)
[2022-02-19] MEDS: cefTRIAXone 1GM/50ML D5W 50 ML IV ONE (12:10)
[2022-02-19] MEDS ORDERED: CIPR-173 PO (16:40)
[2022-02-19 17:00] VITALS: BP 119/61
== END 2022-02-19 17:52 | disposition home or self-care (01) ==
LOC: ER 09:12
DX: N39.0 Urinary tract infection, site not specified (principal); E11.65 Type 2 diabetes mellitus with hyperglycemia; Z90.49 Acquired absence of other specified parts of digestive tract; Z98.51 Tubal ligation status; Z88.2 Allergy status to sulfonamides; Z88.8 Allergy status to other drugs, medicaments and biological substances
CPT/HCPCS: 36415; 71046; 80053; 81001; 82010; 82962; 84484; 85025; 96361; 96365; 96375; 99285; J0696; J7030

== ENCOUNTER 2022-03-19 09:35 | Inpatient (IN) | payer MEDICARE, BC ==
[~2022-03-19] VITALS: Ht 162.6 cm; Wt 121.1 kg
[~2022-03-19 09:35] MED LIST changes: +CIPR-173 PO
[2022-03-19 10:42] LABS: Basophils # (auto) 0 10 ^3/uL (0-0.2); Basophils % (auto) 0.5 % (0.0-2.0); Eosinophils # (auto) 0 10 ^3/uL (0-0.8); Eosinophils % (auto) 0.8 % (0.0-7.0); Hematocrit 43.3 % (36.0-46.0); Hemoglobin 13.8 g/dL (12.2-16.2); Lymphocytes % (auto) 15.6 % (10.0-50.0); Mean Corpuscular Hemoglobin 28.1 pg (28.0-32.0); Mean Corpuscular Hgb Conc. 31.9 g/dL (32.0-36.0); Mean Corpuscular Volume 88.1 fL (80.0-100.0); Monocytes # (auto) 0.4 10 ^3/uL (0-1.3); Monocytes % (auto) 6.5 % (0.0-12.0); Neutrophils # (auto) 4.8 10 ^3/uL (1.6-8.6); Neutrophils % (auto) 76.6 % (37.0-80.0); Nucleated Red Blood Cells % 0.1 %; Red Blood Cells 4.91 10^6/uL (4.0-5.20); Red Cell Distribution Width 13.8 % (11.8-14.3); White Blood Cell 6.3 10^3/uL (4.4-10.8)
[2022-03-19 10:53] LABS: Albumin 3.5 g/dL (3.4-5.0); Calcium 9.1 mg/dL (8.5-10.1); Potassium 4.5 mmol/L (3.5-5.1)
[2022-03-19 11:02] LABS: BUN/Creatinine Ratio 10.3; Bilirubin, Total 0.4 mg/dL (0.2-1.0)
[2022-03-19 11:14] LABS: Alcohol, Urine < 3.0 mg/dL (0-10); Amphetamine Screen, Urine NEGATIVE (NEGATIVE); Barbiturate Scree,Urine NEGATIVE (NEGATIVE); Benzodiazephine Screen, Urine NEGATIVE (NEGATIVE); Cannabinoid Screen, Urine NEGATIVE (NEGATIVE); Cocaine Screen, Urine NEGATIVE (NEGATIVE); Opiate Scree,Urine NEGATIVE (NEGATIVE); Phencyclidine Screen, Urine NEGATIVE (NEGATIVE)
[2022-03-19 11:17] LABS: Urine Bacteria NONE SEEN /hpf (None Seen); Urine Blood TRACE /uL (Negative); Urine Specific Gravity 1.034 (1.001-1.035); Urine WBC 137 /hpf (0 - 5)
[2022-03-19] MEDS ORDERED: INSULIN LANTUS (GLARGINE) 1 /0.01ml (100units/ml) SC ONE (11:45)
[2022-03-19] MEDS ORDERED: InsuLIN R (HUMAN) 100 UNITS in SODIUM CHL 0.9% 99 ML IV SCH (11:45)
[2022-03-19] MEDS ORDERED: DEXTROSE (50%) 50ML SYRG IV PRN ×2 (11:45→19:00)
[2022-03-19] MEDS ORDERED: SODIUM CHLORIDE 0.9% 1,000 ML IV ONE ×2 (13:00)
[2022-03-19] MEDS: ACCU-CHEK COMFORT CURVE STRIP VI SCH ×9 (13:55→22:30)
[2022-03-19] MEDS ORDERED: InsuLIN REG 1unit/0.01ml Soln (100units/ml) IV ONE (14:00)
[2022-03-19] MEDS ORDERED: ONDANSETRON HCL 4 MG/2 ML VIAL IV ONE (14:00)
[2022-03-19] MEDS ORDERED: cefTRIAXone 1GM/50ML D5W 50 ML IV ONE (16:45)
[2022-03-19] MEDS ORDERED: DOCUSATE SOD 100 MG CAP PO PRN (19:00)
[2022-03-19] MEDS ORDERED: ONDANSETRON HCL 4 MG/2 ML VIAL IV PRN (19:00)
[2022-03-19] MEDS ORDERED: ALUM & MAG HYDROX-SIMETH LIQ(MAALOX) 30 ML PO PRN (19:00)
[2022-03-19] MEDS: SODIUM CHLORIDE 0.9% 1,000 ML IV SCH (19:00)
[2022-03-19 19:54] LABS: Cholesterol 125 mg/dL (< 200)
[2022-03-19 19:57] LABS: HDL Cholesterol 34 mg/dL (40-59); LDL Cholesterol 62 mg/dL (< 100); Triglycerides 378 mg/dL (< 150)
[2022-03-19 21:01] LABS: Magnesium 1.4 mg/dL (1.6-2.6); Phosphorus 3.2 mg/dL (2.5-4.90)
[2022-03-19] MEDS: InsuLIN REG 1unit/0.01ml Soln (100units/ml) SC SCH (22:00)
[2022-03-19] MEDS: INSULIN LANTUS (GLARGINE) 1 /0.01ml (100units/ml) SC SCH (22:00)
[2022-03-20] MEDS: SODIUM CHLORIDE 0.9% 1,000 ML IV SCH ×2 (03:00→10:28)
[2022-03-20] MEDS ORDERED: TEMAZEPAM 15 MG CAP PO ONE (03:30)
[2022-03-20] MEDS: ACCU-CHEK COMFORT CURVE STRIP VI SCH ×4 (07:51→22:24)
[2022-03-20] MEDS: InsuLIN REG 1unit/0.01ml Soln (100units/ml) SC SCH ×5 (07:58→22:31)
[2022-03-20] MEDS: metFORMIN HYDROCHLORIDE 500 MG TAB PO SCH ×2 (08:53→17:14)
[2022-03-20] MEDS ORDERED: INSULIN LANTUS (GLARGINE) 1 /0.01ml (100units/ml) SC SCH (10:00)
[2022-03-20] MEDS: [UNRECOGNIZED DRUG - OTHER] PO SCH (10:00)
[2022-03-20] MEDS: FLUoxetine HCL 20 MG CAP PO SCH (10:11)
[2022-03-20] MEDS: ENOXAPARIN SOD 40 MG/0.4 ML SYRINGE SC SCH (10:11)
[2022-03-20] MEDS: PANTOPRAZOLE 40 MG/10 ML VIAL INJ IV SCH (10:11)
[2022-03-20] MEDS: cefTRIAXone 1GM/50ML D5W 50 ML IV SCH (10:11)
[2022-03-20] MEDS: LISINOPRIL 10 MG TAB PO SCH (10:12)
[2022-03-20] MEDS: AMITRIPTYLINE HCL 10 MG TAB PO SCH (11:16)
[2022-03-20 17:00] VITALS: BP 116/75
[2022-03-20] MEDS: HYDROcodone-ACET 5/325MG TAB PO PRN ×2 (17:17→22:27)
[2022-03-20 20:00] VITALS: BP 109/69
[2022-03-20 22:00] VITALS: BP 109/69
[2022-03-20] MEDS: INSULIN LANTUS (GLARGINE) 1 /0.01ml (100units/ml) SC SCH (22:26)
[2022-03-20] MEDS: TEMAZEPAM 15 MG CAP PO ONE (23:44)
[2022-03-21] MEDS: TEMAZEPAM 15 MG CAP PO ONE (01:47)
[2022-03-21] MEDS: SODIUM CHLORIDE 0.9% 1,000 ML IV SCH (03:38)
[2022-03-21 04:58] VITALS: BP 95/65
[2022-03-21] MEDS: ACCU-CHEK COMFORT CURVE STRIP VI SCH ×4 (06:46→22:11)
[2022-03-21] MEDS: InsuLIN REG 1unit/0.01ml Soln (100units/ml) SC SCH ×4 (06:46→22:10)
[2022-03-21] MEDS: HYDROcodone-ACET 5/325MG TAB PO PRN ×4 (06:47→22:07)
[2022-03-21 09:00] VITALS: BP 108/77
[2022-03-21] MEDS: cefTRIAXone 1GM/50ML D5W 50 ML IV SCH (09:52)
[2022-03-21] MEDS: metFORMIN HYDROCHLORIDE 500 MG TAB PO SCH ×2 (09:52→16:54)
[2022-03-21] MEDS: PANTOPRAZOLE 40 MG/10 ML VIAL INJ IV SCH (09:52)
[2022-03-21] MEDS: FLUoxetine HCL 20 MG CAP PO SCH (09:52)
[2022-03-21] MEDS: LISINOPRIL 10 MG TAB PO SCH (09:53)
[2022-03-21] MEDS: ENOXAPARIN SOD 40 MG/0.4 ML SYRINGE SC SCH (09:53)
[2022-03-21] MEDS: [UNRECOGNIZED DRUG - OTHER] PO SCH (09:54)
[2022-03-21] MEDS: AMITRIPTYLINE HCL 10 MG TAB PO SCH (09:54)
[2022-03-21 13:00] VITALS: BP 126/78
[2022-03-21] MEDS: NITROFURANTOIN 100 mg CAP PO SCH ×2 (16:54→22:07)
[2022-03-21 17:00] VITALS: BP 120/74
[2022-03-21 20:00] VITALS: BP_SYST 109; BP_SYST 140; BP_DIAS 69; BP_DIAS 96
[2022-03-21] MEDS ORDERED: INSULIN LANTUS (GLARGINE) 1 /0.01ml (100units/ml) SC SCH (22:00)
[2022-03-21] MEDS ORDERED: TEMAZEPAM 15 MG CAP PO ONE (22:00)
[2022-03-22] MEDS: HYDROcodone-ACET 5/325MG TAB PO PRN ×2 (03:48→08:19)
[2022-03-22 05:00] VITALS: BP 110/61
[2022-03-22] MEDS: ACCU-CHEK COMFORT CURVE STRIP VI SCH ×2 (06:26→11:36)
[2022-03-22] MEDS: InsuLIN REG 1unit/0.01ml Soln (100units/ml) SC SCH ×2 (06:35→11:39)
[2022-03-22] MEDS: metFORMIN HYDROCHLORIDE 500 MG TAB PO SCH (07:55)
[2022-03-22 08:00] VITALS: BP 130/87
[2022-03-22] MEDS: PANTOPRAZOLE 40 MG/10 ML VIAL INJ IV SCH (08:16)
[2022-03-22] MEDS: NITROFURANTOIN 100 mg CAP PO SCH (08:17)
[2022-03-22] MEDS: FLUoxetine HCL 20 MG CAP PO SCH (08:17)
[2022-03-22] MEDS: LISINOPRIL 10 MG TAB PO SCH (08:19)
[2022-03-22] MEDS: [UNRECOGNIZED DRUG - OTHER] PO SCH (08:20)
[2022-03-22] MEDS: ENOXAPARIN SOD 40 MG/0.4 ML SYRINGE SC SCH (08:20)
[2022-03-22] MEDS: AMITRIPTYLINE HCL 10 MG TAB PO SCH (08:20)
[2022-03-22 09:00] VITALS: BP 130/87
[2022-03-22] MEDS ORDERED: METF-929 PO (09:35)
[2022-03-22] MEDS ORDERED: NITR-87 PO (09:35)
[2022-03-22 11:58] VITALS: BP 130/87
[2022-03-22 13:00] VITALS: BP 149/89
== END 2022-03-22 13:38 | disposition home or self-care (01) | DRG 638 ==
LOC: ER 09:35 → TELE 19:10 → TELE-WESTW 03-20 15:12
PROVIDERS: ADMIT Nurse Practitioner Family; ATTEND Nurse Practitioner Acute Care
DX: E11.65 Type 2 diabetes mellitus with hyperglycemia (principal); E87.1 Hypo-osmolality and hyponatremia; Z68.44 Body mass index [BMI] 60.0-69.9, adult; E66.01 Morbid (severe) obesity due to excess calories; F32.A Depression, unspecified; I10 Essential (primary) hypertension; F41.9 Anxiety disorder, unspecified; R00.2 Palpitations; Z20.822 Contact with and (suspected) exposure to COVID-19; N30.90 Cystitis, unspecified without hematuria; M19.90 Unspecified osteoarthritis, unspecified site; Z79.899 Other long term (current) drug therapy; Z80.0 Family history of malignant neoplasm of digestive organs; Z82.49 Family history of ischemic heart disease and other diseases of the circulatory system; Z83.3 Family history of diabetes mellitus; Z85.038 Personal history of other malignant neoplasm of large intestine; Z87.440 Personal history of urinary (tract) infections; Z90.49 Acquired absence of other specified parts of digestive tract; Z91.14 Patient's other noncompliance with medication regimen; Z98.51 Tubal ligation status; Z88.2 Allergy status to sulfonamides; Z88.8 Allergy status to other drugs, medicaments and biological substances; Z79.84 Long term (current) use of oral hypoglycemic drugs
CPT/HCPCS: 36415; 71046; 80053; 80061; 80307; 81001; 82010; 82962; 83036; 83735; 84100; 84443; 84484; 85025; 87086; 87088; 93005; 93306; 93970; 96361; 96365; 96366; 96372; 96375; 96376; C9113; G0378; J0696; J1815; J2405

== ENCOUNTER 2022-05-18 12:26 | Inpatient (IN) | payer MEDICARE, BC ==
[~2022-05-18] VITALS: Ht 162.6 cm; Wt 118.9 kg
[~2022-05-18 12:26] MED LIST changes: +METF-929 PO; +NITR-87 PO
[2022-05-18] MEDS ORDERED: SODIUM CHLORIDE 0.9% 1,000 ML IV ONE ×2 (13:15→14:00)
[2022-05-18 13:18] LABS: Basophils # (auto) 0 10 ^3/uL (0-0.2); Eosinophils # (auto) 0 10 ^3/uL (0-0.8); Eosinophils % (auto) 0.8 % (0.0-7.0); Hematocrit 47.1 % (36.0-46.0); Hemoglobin 15.4 g/dL (12.2-16.2); Lymphocytes % (auto) 21.6 % (10.0-50.0); Mean Corpuscular Hemoglobin 28.9 pg (28.0-32.0); Mean Corpuscular Hgb Conc. 32.8 g/dL (32.0-36.0); Mean Corpuscular Volume 88.2 fL (80.0-100.0); Monocytes # (auto) 0.3 10 ^3/uL (0-1.3); Monocytes % (auto) 7.2 % (0.0-12.0); Neutrophils # (auto) 3.3 10 ^3/uL (1.6-8.6); Neutrophils % (auto) 70.4 % (37.0-80.0); Nucleated Red Blood Cells % 0.1 %; Red Blood Cells 5.34 10^6/uL (4.0-5.20); Red Cell Distribution Width 13.5 % (11.8-14.3); White Blood Cell 4.7 10^3/uL (4.4-10.8)
[2022-05-18 13:34] LABS: Albumin 3.6 g/dL (3.4-5.0); BUN/Creatinine Ratio 13.2; Calcium 8.9 mg/dL (8.5-10.1); Potassium 4.7 mmol/L (3.5-5.1)
[2022-05-18 13:44] LABS: Bilirubin, Total 0.3 mg/dL (0.2-1.0); Total Protein 7.2 g/dL (6.4-8.2)
[2022-05-18] MEDS ORDERED: ONDANSETRON HCL 4 MG/2 ML VIAL IV ONE ×2 (15:15→17:45)
[2022-05-18 15:25] LABS: Lactic Acid w/Reflex 2.7 mmol/L (0.4-2.0)
[2022-05-18 15:30] LABS: Magnesium 1.9 mg/dL (1.6-2.6); Phosphorus 3.3 mg/dL (2.5-4.90)
[2022-05-18 16:43] LABS: Urine Bacteria NONE SEEN /hpf (None Seen); Urine Blood Negative /uL (Negative); Urine Specific Gravity 1.035 (1.001-1.035); Urine WBC 77 /hpf (0 - 5)
[2022-05-18] MEDS ORDERED: INSULIN LISPRO (HUMAN) 100 UNITS/ML ML SC ONE ×2 (17:00→17:45)
[2022-05-18] MEDS ORDERED: cefTRIAXone 1GM/50ML D5W 50 ML IV ONE (17:00)
[2022-05-18] MEDS ORDERED: MORPHINE SULFATE INJ 2 MG/ml SYRG IV ONE (19:45)
[2022-05-18] MEDS ORDERED: ACETAMINOPHEN 325 MG TAB PO PRN (21:15)
[2022-05-18] MEDS ORDERED: hydrALAZINE HCL 20 MG/ML VL IV PRN (21:15)
[2022-05-18] MEDS ORDERED: DOCUSATE SOD 100 MG CAP PO PRN (21:15)
[2022-05-18] MEDS ORDERED: ONDANSETRON HCL 4 MG/2 ML VIAL IV PRN (21:15)
[2022-05-18] MEDS ORDERED: SODIUM CHLORIDE 0.9% 1,000 ML IV SCH (21:15)
[2022-05-18] MEDS ORDERED: DEXTROSE (50%) 50ML SYRG IV PRN (21:15)
[2022-05-18] MEDS ORDERED: NITROGLYCERIN 0.4 MG SL TAB SL PRN (23:00)
[2022-05-18] MEDS ORDERED: MORPHINE SULFATE INJ 2 MG/ml SYRG IV PRN (23:00)
[2022-05-19] MEDS: ACCU-CHEK COMFORT CURVE STRIP VI SCH ×6 (00:35→20:33)
[2022-05-19] MEDS: InsuLIN REG 1unit/0.01ml Soln (100units/ml) SC SCH ×6 (00:37→20:35)
[2022-05-19] MEDS: HYDROcodone-ACET 5/325MG TAB PO PRN ×2 (01:31→14:39)
[2022-05-19] MEDS: MORPHINE SULFATE INJ 2 MG/ml SYRG IV PRN ×2 (02:49→20:33)
[2022-05-19 06:49] LABS: Basophils # (auto) 0 10 ^3/uL (0-0.2); Basophils % (auto) 0.7 % (0.0-2.0); Eosinophils # (auto) 0.1 10 ^3/uL (0-0.8); Eosinophils % (auto) 1.4 % (0.0-7.0); Hematocrit 40.2 % (36.0-46.0); Hemoglobin 13.5 g/dL (12.2-16.2); Lymphocytes # (auto) 1.9 10 ^3/uL (0.4-5.4); Lymphocytes % (auto) 31.6 % (10.0-50.0); Mean Corpuscular Hgb Conc. 33.7 g/dL (32.0-36.0); Mean Corpuscular Volume 85.9 fL (80.0-100.0); Monocytes # (auto) 0.5 10 ^3/uL (0-1.3); Monocytes % (auto) 8.2 % (0.0-12.0); Neutrophils # (auto) 3.6 10 ^3/uL (1.6-8.6); Neutrophils % (auto) 58.1 % (37.0-80.0); Red Blood Cells 4.68 10^6/uL (4.0-5.20); Red Cell Distribution Width 13.5 % (11.8-14.3); White Blood Cell 6.1 10^3/uL (4.4-10.8)
[2022-05-19 07:10] LABS: Potassium 3.6 mmol/L (3.5-5.1)
[2022-05-19 07:17] LABS: Bilirubin, Total 0.4 mg/dL (0.2-1.0); Calcium 8.7 mg/dL (8.5-10.1); Total Protein 5.7 g/dL (6.4-8.2)
[2022-05-19 09:40] VITALS: BP 106/56
[2022-05-19 10:45] VITALS: BP 106/56
[2022-05-19 13:00] VITALS: BP 118/62
[2022-05-19] MEDS: SODIUM CHLORIDE 0.9% 1,000 ML IV SCH ×2 (14:26→20:25)
[2022-05-19] MEDS: cefTRIAXone 1GM/50ML D5W 50 ML IV SCH (14:26)
[2022-05-19 17:19] VITALS: BP 114/54
[2022-05-19 21:12] VITALS: BP 109/54
[2022-05-20] MEDS: ACCU-CHEK COMFORT CURVE STRIP VI SCH ×7 (00:53→23:38)
[2022-05-20] MEDS: InsuLIN REG 1unit/0.01ml Soln (100units/ml) SC SCH ×7 (00:54→23:38)
[2022-05-20] MEDS: SODIUM CHLORIDE 0.9% 1,000 ML IV SCH ×5 (04:49→23:38)
[2022-05-20 05:00] VITALS: BP 104/52
[2022-05-20] MEDS: MORPHINE SULFATE INJ 2 MG/ml SYRG IV PRN (05:17)
[2022-05-20 08:15] VITALS: BP 107/69
[2022-05-20] MEDS: HYDROcodone-ACET 5/325MG TAB PO PRN ×4 (08:21→23:54)
[2022-05-20 09:00] VITALS: BP 107/69
[2022-05-20] MEDS: cefTRIAXone 1GM/50ML D5W 50 ML IV SCH (09:00)
[2022-05-20 13:00] VITALS: BP 125/77
[2022-05-20 15:40] LABS: Urine Bacteria NONE SEEN /hpf (None Seen); Urine Blood TRACE /uL (Negative); Urine Specific Gravity 1.018 (1.001-1.035); Urine WBC 90 /hpf (0 - 5)
[2022-05-20 17:00] VITALS: BP 129/59
[2022-05-20 22:00] VITALS: BP 109/72
[2022-05-21] MEDS ORDERED: ONDANSETRON ODT 4 MG TAB PO ONE (00:45)
[2022-05-21] MEDS: InsuLIN REG 1unit/0.01ml Soln (100units/ml) SC SCH ×5 (03:52→20:23)
[2022-05-21] MEDS: HYDROcodone-ACET 5/325MG TAB PO PRN ×3 (03:53→21:24)
[2022-05-21] MEDS: ACCU-CHEK COMFORT CURVE STRIP VI SCH ×5 (03:53→20:18)
[2022-05-21 05:00] VITALS: BP 104/51
[2022-05-21] MEDS: cefTRIAXone 1GM/50ML D5W 50 ML IV SCH (09:00)
[2022-05-21 09:06] VITALS: BP 108/58
[2022-05-21] MEDS: SODIUM CHLORIDE 0.9% 1,000 ML IV SCH ×2 (12:25→19:05)
[2022-05-21 13:00] VITALS: BP 126/66
[2022-05-21 17:00] VITALS: BP 135/73
[2022-05-21 22:00] VITALS: BP 128/71
[2022-05-22] MEDS: ACCU-CHEK COMFORT CURVE STRIP VI SCH ×5 (00:28→15:58)
[2022-05-22] MEDS: SODIUM CHLORIDE 0.9% 1,000 ML IV SCH ×2 (01:45→08:25)
[2022-05-22] MEDS: HYDROcodone-ACET 5/325MG TAB PO PRN ×2 (01:57→06:53)
[2022-05-22] MEDS: InsuLIN REG 1unit/0.01ml Soln (100units/ml) SC SCH ×5 (04:11→15:59)
[2022-05-22 05:00] VITALS: BP 113/49
[2022-05-22] MEDS: cefTRIAXone 1GM/50ML D5W 50 ML IV SCH (10:49)
[2022-05-22] MEDS: MORPHINE SULFATE INJ 2 MG/ml SYRG IV PRN (12:37)
[2022-05-22 13:07] VITALS: BP 125/67
== END 2022-05-22 17:31 | DRG 638 ==
LOC: ER 12:26 → TELE 23:03 → TELE-WESTW 05-19 09:13
PROVIDERS: ADMIT Nurse Practitioner Family; ATTEND Family Medicine
PROC: 05H933Z Insertion of Infusion Device into Right Brachial Vein, Percutaneous Approach (ICD-10-PCS; principal; 2022-05-22)
PROC: B54MZZA Ultrasonography of Right Upper Extremity Veins, Guidance (ICD-10-PCS; 2022-05-22)
DX: E11.10 Type 2 diabetes mellitus with ketoacidosis without coma (principal); E87.1 Hypo-osmolality and hyponatremia; N39.0 Urinary tract infection, site not specified; Z68.41 Body mass index [BMI] 40.0-44.9, adult; Z20.822 Contact with and (suspected) exposure to COVID-19; Z60.2 Problems related to living alone; E11.65 Type 2 diabetes mellitus with hyperglycemia; K31.84 Gastroparesis; E11.43 Type 2 diabetes mellitus with diabetic autonomic (poly)neuropathy; E66.01 Morbid (severe) obesity due to excess calories; Z79.84 Long term (current) use of oral hypoglycemic drugs; Z80.0 Family history of malignant neoplasm of digestive organs; Z82.49 Family history of ischemic heart disease and other diseases of the circulatory system; Z83.3 Family history of diabetes mellitus; Z90.49 Acquired absence of other specified parts of digestive tract; Z91.199 Patient's noncompliance with other medical treatment and regimen due to unspecified reason; Z91.14 Patient's other noncompliance with medication regimen; Z88.2 Allergy status to sulfonamides; Z88.8 Allergy status to other drugs, medicaments and biological substances
CPT/HCPCS: 36415; 36600; 70450; 71045; 74176; 80053; 81001; 82010; 82805; 82962; 83036; 83605; 83690; 83735; 84100; 84484; 85025; 87040; 87086; 87426; 93005; 96361; 96365; 96372; 96375; 96376; 97163; 99291; G0378; J0696; J1815; J2405; Q0162

== ENCOUNTER 2022-07-13 09:12 | Inpatient (IN) | payer MEDICARE, BC ==
[~2022-07-13] VITALS: Ht 162.6 cm; Wt 122.0 kg
[2022-07-13 10:23] LABS: Basophils # (auto) 0 10 ^3/uL (0-0.2); Basophils % (auto) 0.4 % (0.0-2.0); Eosinophils # (auto) 0 10 ^3/uL (0-0.8); Eosinophils % (auto) 0.8 % (0.0-7.0); Hematocrit 41.1 % (36.0-46.0); Hemoglobin 13.5 g/dL (12.2-16.2); Lymphocytes # (auto) 0.6 10 ^3/uL (0.4-5.4); Mean Corpuscular Hemoglobin 29.4 pg (28.0-32.0); Mean Corpuscular Hgb Conc. 32.8 g/dL (32.0-36.0); Mean Corpuscular Volume 89.8 fL (80.0-100.0); Monocytes # (auto) 0.4 10 ^3/uL (0-1.3); Monocytes % (auto) 6.6 % (0.0-12.0); Neutrophils # (auto) 4.6 10 ^3/uL (1.6-8.6); Neutrophils % (auto) 81.2 % (37.0-80.0); Nucleated Red Blood Cells % 0.1 %; Red Blood Cells 4.58 10^6/uL (4.0-5.20); Red Cell Distribution Width 13.7 % (11.8-14.3); White Blood Cell 5.7 10^3/uL (4.4-10.8)
[2022-07-13] MEDS ORDERED: MECLIZINE HCL 25 MG TAB PO ONE (10:30)
[2022-07-13] MEDS ORDERED: LACTATED RINGER'S 1,000 ML IV ONE (10:30)
[2022-07-13 10:47] LABS: Calcium 8.4 mg/dL (8.5-10.1); Potassium 4.5 mmol/L (3.5-5.1)
[2022-07-13 10:51] LABS: BUN/Creatinine Ratio 25.8; Magnesium 1.7 mg/dL (1.6-2.6)
[2022-07-13 11:03] LABS: Bilirubin, Total 0.7 mg/dL (0.2-1.0); Total Protein 6.4 g/dL (6.4-8.2)
[2022-07-13] MEDS ORDERED: DEXTROSE (50%) 50ML SYRG IV PRN (18:00)
[2022-07-13] MEDS ORDERED: DOCUSATE SOD 100 MG CAP PO PRN (18:00)
[2022-07-13 19:01] LABS: Urine Bacteria MOD /hpf (None Seen); Urine Blood Negative /uL (Negative); Urine Budding Yeast MODERATE /hpf (None Seen); Urine Hyaline Cast FEW /lpf (0 - 2); Urine Mucus FEW (None Seen); Urine Specific Gravity 1.024 (1.001-1.035); Urine WBC 566 /hpf (0 - 5)
[2022-07-13] MEDS: ACCU-CHEK COMFORT CURVE STRIP VI SCH (22:02)
[2022-07-13] MEDS: InsuLIN REG 1unit/0.01ml Soln (100units/ml) SC SCH (22:11)
[2022-07-14] MEDS: ACETAMINOPHEN 325 MG TAB PO PRN ×2 (03:30→20:30)
[2022-07-14 06:22] LABS: Basophils # (auto) 0.1 10 ^3/uL (0-0.2); Basophils % (auto) 0.9 % (0.0-2.0); Eosinophils # (auto) 0.1 10 ^3/uL (0-0.8); Eosinophils % (auto) 1.3 % (0.0-7.0); Hematocrit 41.2 % (36.0-46.0); Hemoglobin 13.6 g/dL (12.2-16.2); Lymphocytes # (auto) 1.4 10 ^3/uL (0.4-5.4); Lymphocytes % (auto) 22.4 % (10.0-50.0); Mean Corpuscular Hemoglobin 29.3 pg (28.0-32.0); Mean Corpuscular Volume 88.8 fL (80.0-100.0); Monocytes # (auto) 0.5 10 ^3/uL (0-1.3); Monocytes % (auto) 8.2 % (0.0-12.0); Neutrophils # (auto) 4.1 10 ^3/uL (1.6-8.6); Neutrophils % (auto) 67.2 % (37.0-80.0); Nucleated Red Blood Cells % 0.3 %; Red Blood Cells 4.64 10^6/uL (4.0-5.20); White Blood Cell 6.2 10^3/uL (4.4-10.8)
[2022-07-14 06:32] LABS: Alanine Aminotransferase 24 U/L (13-56); Albumin 2.9 g/dL (3.4-5.0); Anion Gap 8 (5-15); Aspartate Aminotransferase 15 U/L (15-37); BUN/Creatinine Ratio 24.6; Blood Urea Nitrogen 14 mg/dL (7-18); Calcium 8.5 mg/dL (8.5-10.1); Carbon Dioxide 25 mmol/L (21-32); Chloride 105 mmol/L (98-107); GFR African American 138 mL/min; GFR Non-African American 114 mL/min; Glucose 227 mg/dL (74-106); Potassium 4.2 mmol/L (3.5-5.1); Sodium 138 mmol/L (136-145)
[2022-07-14 06:35] LABS: Alkaline Phosphatase 91 U/L (45-117); Bilirubin, Total 0.4 mg/dL (0.2-1.0); Total Protein 6.4 g/dL (6.4-8.2)
[2022-07-14] MEDS: ACCU-CHEK COMFORT CURVE STRIP VI SCH ×4 (06:51→22:05)
[2022-07-14] MEDS: InsuLIN REG 1unit/0.01ml Soln (100units/ml) SC SCH ×4 (06:56→22:04)
[2022-07-14] MEDS ORDERED: PANTOPRAZOLE 40 MG/10 ML VIAL INJ IV SCH (10:00)
[2022-07-14] MEDS: LISINOPRIL 10 MG TAB PO SCH (10:00)
[2022-07-14] MEDS: FLUoxetine HCL 20 MG CAP PO SCH (10:14)
[2022-07-14] MEDS: PANTOPRAZOLE 40 MG/10 ML VIAL INJ IV SCH (10:15)
[2022-07-14] MEDS ORDERED: cefTRIAXone 1GM/50ML D5W 50 ML IV ONE (12:00)
[2022-07-14 13:21] VITALS: BP 115/72
[2022-07-14] MEDS: SODIUM CHLORIDE 0.9% 1,000 ML IV SCH ×2 (13:32→19:30)
[2022-07-14 17:00] VITALS: BP 141/77
[2022-07-14 17:32] VITALS: BP 115/72
[2022-07-14] MEDS: ONDANSETRON HCL 4 MG/2 ML VIAL IV PRN (18:08)
[2022-07-14 20:00] VITALS: BP 152/90
[2022-07-14 22:00] VITALS: BP 152/90
[2022-07-15] MEDS: SODIUM CHLORIDE 0.9% 1,000 ML IV SCH ×4 (01:04→22:00)
[2022-07-15] MEDS: ACETAMINOPHEN 325 MG TAB PO PRN ×2 (01:46→12:53)
[2022-07-15 05:00] VITALS: BP 125/60
[2022-07-15] MEDS: ACCU-CHEK COMFORT CURVE STRIP VI SCH ×4 (06:51→22:00)
[2022-07-15] MEDS: InsuLIN REG 1unit/0.01ml Soln (100units/ml) SC SCH ×4 (06:53→22:00)
[2022-07-15 08:00] VITALS: BP 126/87
[2022-07-15] MEDS: cefTRIAXone 1GM/50ML D5W 50 ML IV SCH (08:26)
[2022-07-15] MEDS: PANTOPRAZOLE 40 MG/10 ML VIAL INJ IV SCH (08:26)
[2022-07-15] MEDS: HYDROcodone-ACET 7.5/325MG TAB PO PRN ×3 (08:27→22:18)
[2022-07-15] MEDS: LISINOPRIL 10 MG TAB PO SCH (08:28)
[2022-07-15] MEDS: FLUoxetine HCL 20 MG CAP PO SCH (08:29)
[2022-07-15 09:00] VITALS: BP 126/87
[2022-07-15 12:32] VITALS: BP 120/79
[2022-07-15] MEDS: ONDANSETRON HCL 4 MG/2 ML VIAL IV PRN (16:56)
[2022-07-15 17:00] VITALS: BP 143/77
[2022-07-15 22:00] VITALS: BP 121/70
[2022-07-16] MEDS: HYDROcodone-ACET 7.5/325MG TAB PO PRN ×2 (02:45→09:01)
[2022-07-16] MEDS: SODIUM CHLORIDE 0.9% 1,000 ML IV SCH ×2 (04:00→10:40)
[2022-07-16 05:00] VITALS: BP 125/75
[2022-07-16] MEDS: ACCU-CHEK COMFORT CURVE STRIP VI SCH ×3 (05:56→17:39)
[2022-07-16] MEDS: InsuLIN REG 1unit/0.01ml Soln (100units/ml) SC SCH ×3 (05:56→17:40)
[2022-07-16 08:00] VITALS: BP 131/81
[2022-07-16 08:30] VITALS: BP 131/81
[2022-07-16] MEDS: LISINOPRIL 10 MG TAB PO SCH (08:58)
[2022-07-16] MEDS: FLUoxetine HCL 20 MG CAP PO SCH (08:59)
[2022-07-16] MEDS: cefTRIAXone 1GM/50ML D5W 50 ML IV SCH (09:00)
[2022-07-16] MEDS: PANTOPRAZOLE 40 MG/10 ML VIAL INJ IV SCH (09:00)
[2022-07-16] MEDS: ONDANSETRON HCL 4 MG/2 ML VIAL IV PRN (09:01)
[2022-07-16 12:00] VITALS: BP 111/92
[2022-07-16] MEDS ORDERED: TEMAZEPAM 15 MG CAP PO PRN (14:15)
[2022-07-16] MEDS ORDERED: guaiFENesin-DM 100/10mg/5ml SYR PO PRN (14:15)
[2022-07-16 16:00] VITALS: BP 133/77
[2022-07-16 18:45] VITALS: BP 133/77
== END 2022-07-16 19:15 | DRG 872 ==
LOC: EDSEX 09:12 → ER 09:12 → EDBD 09:12 → OVERFLOW 17:52 → CENTRAL 07-14 10:29
PROVIDERS: ADMIT Nurse Practitioner Family; ATTEND Family Medicine
DX: A41.9 Sepsis, unspecified organism (principal); Z68.42 Body mass index [BMI] 45.0-49.9, adult; N39.0 Urinary tract infection, site not specified; E86.0 Dehydration; E11.65 Type 2 diabetes mellitus with hyperglycemia; E66.9 Obesity, unspecified; G47.419 Narcolepsy without cataplexy; R29.6 Repeated falls; I10 Essential (primary) hypertension; G89.29 Other chronic pain; F32.A Depression, unspecified; F41.9 Anxiety disorder, unspecified; M54.50 Low back pain, unspecified; M54.9 Dorsalgia, unspecified; Z60.2 Problems related to living alone; Z88.2 Allergy status to sulfonamides; Z88.1 Allergy status to other antibiotic agents; Z80.0 Family history of malignant neoplasm of digestive organs; Z82.49 Family history of ischemic heart disease and other diseases of the circulatory system; Z83.3 Family history of diabetes mellitus; Z91.199 Patient's noncompliance with other medical treatment and regimen due to unspecified reason
CPT/HCPCS: 36415; 36600; 70450; 71045; 80053; 81001; 82010; 82805; 82962; 83036; 83735; 83880; 84484; 85025; 87040; 87086; 87426; 93005; 93886; 96361; 96365; 96375; C9113; G0378; J0696; J1815; J2405

== ENCOUNTER 2022-08-13 21:40 | Emergency (ER) | payer MEDICARE, BC ==
[~2022-08-13] VITALS: Ht 162.6 cm; Wt 113.4 kg
[~2022-08-13 21:40] MED LIST changes: -CIPR-173 PO; -NITR-87 PO
[2022-08-13] MEDS ORDERED: LACTATED RINGER'S 1,000 ML IV ONE (23:00)
[2022-08-13 23:26] LABS: Basophils # (auto) 0.2 10 ^3/uL (0-0.2); Eosinophils # (auto) 0.1 10 ^3/uL (0-0.8); Eosinophils % (auto) 2.1 % (0.0-7.0); Hematocrit 41.8 % (36.0-46.0); Hemoglobin 14.4 g/dL (12.2-16.2); Lymphocytes # (auto) 1.6 10 ^3/uL (0.4-5.4); Lymphocytes % (auto) 25.5 % (10.0-50.0); Mean Corpuscular Hemoglobin 29.7 pg (28.0-32.0); Mean Corpuscular Hgb Conc. 34.4 g/dL (32.0-36.0); Mean Corpuscular Volume 86.4 fL (80.0-100.0); Monocytes # (auto) 0.4 10 ^3/uL (0-1.3); Monocytes % (auto) 5.8 % (0.0-12.0); Neutrophils # (auto) 4.1 10 ^3/uL (1.6-8.6); Neutrophils % (auto) 63.6 % (37.0-80.0); Nucleated Red Blood Cells % 0.1 %; Red Blood Cells 4.84 10^6/uL (4.0-5.20); Red Cell Distribution Width 13.4 % (11.8-14.3); White Blood Cell 6.4 10^3/uL (4.4-10.8)
[2022-08-13 23:38] LABS: INR 0.95 (0.9-1.15); Partial Thromboplastin Time 26.5 sec (24.6-33.4)
[2022-08-13 23:42] LABS: Albumin 3.2 g/dL (3.4-5.0); BUN/Creatinine Ratio 14.3; Calcium 9.1 mg/dL (8.5-10.1); Potassium 3.7 mmol/L (3.5-5.1)
[2022-08-13 23:45] LABS: Bilirubin, Total 0.2 mg/dL (0.2-1.0); Total Protein 6.9 g/dL (6.4-8.2)
[2022-08-14] MEDS ORDERED: ONDANSETRON ODT 4 MG TAB PO ONE (00:15)
[2022-08-14 10:00] VITALS: BP 109/62
== END 2022-08-14 11:22 | disposition home or self-care (01) ==
LOC: EDBD 21:40 → ER 21:44
DX: S00.80XA Unspecified superficial injury of other part of head, initial encounter (principal); K29.60 Other gastritis without bleeding; R42 Dizziness and giddiness; E11.65 Type 2 diabetes mellitus with hyperglycemia; F41.9 Anxiety disorder, unspecified; I10 Essential (primary) hypertension; Z90.49 Acquired absence of other specified parts of digestive tract; Z98.890 Other specified postprocedural states; W19.XXXA Unspecified fall, initial encounter; Y93.89 Activity, other specified; Y92.89 Other specified places as the place of occurrence of the external cause; Y99.8 Other external cause status
CPT/HCPCS: 36415; 70450; 71045; 71250; 72125; 74176; 80053; 80320; 83690; 84484; 85025; 85610; 85730; 93005; 96360; 96361; 99285; Q0162

== ENCOUNTER 2023-01-27 15:21 | Emergency (ER) | payer MEDICARE, BC ==
[~2023-01-27] VITALS: Ht 162.6 cm; Wt 108.0 kg
[2023-01-27 15:21] VITALS: BP 115/70; RESP 20; O2SAT 96
[~2023-01-27 15:21] MED LIST changes: +AMIT10TA10 PO; -AMIT10TA8 PO; -LISI-716 PO; +LISI10TA34 PO
[2023-01-27 16:03] LABS: Basophils # (auto) 0.1 10 ^3/uL (0-0.2); Basophils % (auto) 0.9 % (0.0-2.0); Eosinophils # (auto) 0.1 10 ^3/uL (0-0.8); Eosinophils % (auto) 0.9 % (0.0-7.0); Hematocrit 42.5 % (36.0-46.0); Hemoglobin 14.3 g/dL (12.2-16.2); Lymphocytes # (auto) 1.8 10 ^3/uL (0.4-5.4); Lymphocytes % (auto) 22.6 % (10.0-50.0); Mean Corpuscular Hemoglobin 29.1 pg (28.0-32.0); Mean Corpuscular Hgb Conc. 33.7 g/dL (32.0-36.0); Mean Corpuscular Volume 86.4 fL (80.0-100.0); Monocytes # (auto) 0.5 10 ^3/uL (0-1.3); Monocytes % (auto) 6.4 % (0.0-12.0); Neutrophils # (auto) 5.7 10 ^3/uL (1.6-8.6); Neutrophils % (auto) 69.2 % (37.0-80.0); Nucleated Red Blood Cells % 0.2 %; Red Blood Cells 4.92 10^6/uL (4.0-5.20); Red Cell Distribution Width 13.5 % (11.8-14.3); White Blood Cell 8.2 10^3/uL (4.4-10.8)
[2023-01-27 16:21] LABS: INR 0.95 (0.9-1.15); Partial Thromboplastin Time 22.6 SEC (24.5-34.5)
[2023-01-27 16:44] VITALS: PULSE 110
[2023-01-27 16:46] LABS: Albumin 3.3 g/dL (3.4-5.0); Calcium 8.2 mg/dL (8.5-10.1); Potassium 3.9 mmol/L (3.5-5.1)
[2023-01-27 16:49] LABS: BUN/Creatinine Ratio 15.9 (10.0-20.0); Bilirubin, Total 0.2 mg/dL (0.2-1.0)
== END 2023-01-27 19:55 | disposition left against medical advice (07) ==
LOC: EDBD 15:21 → ER 15:21 → EDUNIT# 15:21 → ER 19:55
DX: I11.0 Hypertensive heart disease with heart failure (principal); I50.9 Heart failure, unspecified; E11.9 Type 2 diabetes mellitus without complications; F41.9 Anxiety disorder, unspecified; Z86.73 Personal history of transient ischemic attack (TIA), and cerebral infarction without residual deficits; Z90.49 Acquired absence of other specified parts of digestive tract; Z98.890 Other specified postprocedural states; Z88.2 Allergy status to sulfonamides; Z88.8 Allergy status to other drugs, medicaments and biological substances; Z79.84 Long term (current) use of oral hypoglycemic drugs; Z79.899 Other long term (current) drug therapy
CPT/HCPCS: 36415; 71045; 80053; 83880; 84484; 85025; 85379; 85610; 85730; 93005

== ENCOUNTER 2023-04-09 11:42 | Emergency (ER) | payer MEDICARE, BC ==
[~2023-04-09] VITALS: Ht 165.1 cm; Wt 128.0 kg
[2023-04-09] MEDS ORDERED: SODIUM CHLORIDE 0.9% 1,000 ML IV ONE ×2 (13:00→15:00)
[2023-04-09 13:27] LABS: Alanine Aminotransferase 31 U/L (7-40); Albumin 4.1 g/dL (3.2-4.8); Alkaline Phosphatase 85 U/L (46-116); Anion Gap 9 (5-15); Aspartate Aminotransferase 12 U/L (13-40); BUN/Creatinine Ratio 23.2 (10.0-20.0); Blood Urea Nitrogen 16 mg/dL (9-23); Calcium 9.2 mg/dL (8.5-10.1); Carbon Dioxide 26 mmol/L (20-30); Chloride 100 mmol/L (98-107); Glucose 255 mg/dL (74-106); Potassium 4.1 mmol/L (3.5-5.1); Sodium 135 mmol/L (136-145)
[2023-04-09 13:28] LABS: Bilirubin, Total 0.4 mg/dL (0.2-1.0); Total Protein 6.6 g/dL (5.7-8.2)
[2023-04-09 13:29] LABS: Basophils # (auto) 0.1 10 ^3/uL (0-0.2); Basophils % (auto) 0.8 % (0.0-2.0); Eosinophils # (auto) 0.1 10 ^3/uL (0-0.8); Eosinophils % (auto) 1.5 % (0.0-7.0); Hematocrit 42.2 % (36.0-46.0); Hemoglobin 14.2 g/dL (12.2-16.2); Lymphocytes # (auto) 1.8 10 ^3/uL (0.4-5.4); Lymphocytes % (auto) 22.8 % (10.0-50.0); Mean Corpuscular Hemoglobin 29.2 pg (28.0-32.0); Mean Corpuscular Hgb Conc. 33.7 g/dL (32.0-36.0); Mean Corpuscular Volume 86.6 fL (80.0-100.0); Monocytes # (auto) 0.5 10 ^3/uL (0-1.3); Monocytes % (auto) 6.9 % (0.0-12.0); Neutrophils # (auto) 5.4 10 ^3/uL (1.6-8.6); Nucleated Red Blood Cells % 0.1 %; Red Blood Cells 4.87 10^6/uL (4.0-5.20); Red Cell Distribution Width 13.8 % (11.8-14.3); White Blood Cell 7.9 10^3/uL (4.4-10.8)
[2023-04-09 14:30] LABS: Lactic Acid w/Reflex 2.9 mmol/L (0.4-2.0)
[2023-04-09 17:38] VITALS: BP 148/83; PULSE 103; RESP 18; TEMP 97.9; O2SAT 93
== END 2023-04-09 21:29 | disposition left against medical advice (07) ==
LOC: ER 11:42
DX: E11.65 Type 2 diabetes mellitus with hyperglycemia (principal); E86.0 Dehydration; R42 Dizziness and giddiness; I10 Essential (primary) hypertension; Z90.49 Acquired absence of other specified parts of digestive tract; Z88.2 Allergy status to sulfonamides
CPT/HCPCS: 36415; 70450; 71045; 80053; 82962; 83605; 83735; 84484; 85025; 93005; 96360; 99285; J7030

== ENCOUNTER 2023-05-22 12:13 | Inpatient (IN) | payer MEDICARE, BC, MEDICAID ==
[~2023-05-22] VITALS: Ht 162.6 cm; Wt 179.0 kg
[2023-05-22 12:54] LABS: Basophils # (auto) 0 10 ^3/uL (0-0.2); Basophils % (auto) 0.6 % (0.0-2.0); Eosinophils # (auto) 0.1 10 ^3/uL (0-0.8); Eosinophils % (auto) 0.7 % (0.0-7.0); Hematocrit 41.2 % (36.0-46.0); Hemoglobin 13.7 g/dL (12.2-16.2); Lymphocytes # (auto) 1.4 10 ^3/uL (0.4-5.4); Lymphocytes % (auto) 18.2 % (10.0-50.0); Mean Corpuscular Hemoglobin 28.5 pg (28.0-32.0); Mean Corpuscular Hgb Conc. 33.1 g/dL (32.0-36.0); Mean Corpuscular Volume 85.9 fL (80.0-100.0); Monocytes # (auto) 0.6 10 ^3/uL (0-1.3); Monocytes % (auto) 8.2 % (0.0-12.0); Neutrophils # (auto) 5.7 10 ^3/uL (1.6-8.6); Neutrophils % (auto) 72.3 % (37.0-80.0); Red Cell Distribution Width 13.9 % (11.8-14.3)
[2023-05-22 13:14] LABS: Alanine Aminotransferase 20 U/L (7-40); Albumin 4.4 g/dL (3.2-4.8); Alkaline Phosphatase 72 U/L (46-116); Anion Gap 6 (5-15); Aspartate Aminotransferase 13 U/L (13-40); BUN/Creatinine Ratio 13.7 (10.0-20.0); Bilirubin, Total 0.3 mg/dL (0.2-1.0); Blood Urea Nitrogen 10 mg/dL (9-23); Calcium 10.1 mg/dL (8.5-10.1); Carbon Dioxide 29 mmol/L (20-30); Chloride 102 mmol/L (98-107); Glucose 139 mg/dL (74-106); Potassium 4.1 mmol/L (3.5-5.1); Sodium 137 mmol/L (136-145); Total Protein 7.1 g/dL (5.7-8.2)
[2023-05-22] MEDS ORDERED: SODIUM CHLORIDE 0.9% 500 ML IV ONE (13:30)
[2023-05-22] MEDS ORDERED: ONDANSETRON HCL 4 MG/2 ML VIAL IV ONE (13:30)
[2023-05-22 13:35] LABS: Lipase 30 U/L (12-53)
[2023-05-22] MEDS ORDERED: KETOROLAC TROMETH 30 MG/ML 1ML VIAL IV ONE (13:45)
[2023-05-22 14:01] LABS: Urine Bacteria NONE SEEN /hpf (None Seen); Urine Blood 1+ /uL (Negative); Urine Clarity CLOUDY (Clear); Urine Color Yellow (Yellow); Urine Protein, UAD 2+ (Negative); Urine Specific Gravity 1.011 (1.001-1.035); Urine Urobilinogen Normal (Negative); Urine WBC 908 /hpf (0 - 5); Urine WBC Clumps PRESENT /hpf (None Seen)
[2023-05-22 16:00] VITALS: PULSE 88; RESP 16; O2SAT 95
[2023-05-22] MEDS ORDERED: levoFLOXacin 250 MG TAB PO ONE (17:15)
[2023-05-22] MEDS ORDERED: DEXTROSE (50%) 50ML SYRG IV PRN (17:30)
[2023-05-22] MEDS ORDERED: ACETAMINOPHEN 325 MG TAB PO PRN (17:30)
[2023-05-22] MEDS ORDERED: SODIUM CHLORIDE 0.9% 1,000 ML IV ONE (17:30)
[2023-05-22] MEDS ORDERED: cefTRIAXone 1GM/50ML D5W 50 ML IV ONE (17:30)
[2023-05-22] MEDS ORDERED: PANTOPRAZOLE 40 MG/10 ML VIAL INJ IV ONE (17:45)
[2023-05-22 18:20] LABS: Triglycerides 91 mg/dL (< 150)
[2023-05-22 18:21] LABS: LDL Cholesterol 65 mg/dL (< 100)
[2023-05-22 18:22] LABS: Cholesterol 110 mg/dL (< 200); HDL Cholesterol 38 mg/dL (40-59)
[2023-05-22] MEDS ORDERED: fentaNYL CITRATE 100 MCG/2 ML VL IV ONE (18:30)
[2023-05-22 19:45] VITALS: PULSE 84; RESP 18; O2SAT 91
[2023-05-22] MEDS: SODIUM CHLORIDE 0.9% 1,000 ML IV SCH (19:54)
[2023-05-22] MEDS: ONDANSETRON HCL 4 MG/2 ML VIAL IV PRN (21:12)
[2023-05-22] MEDS: KETOROLAC TROMETH 30 MG/ML 1ML VIAL IV PRN (21:12)
[2023-05-22] MEDS: InsuLIN REG 1unit/0.01ml Soln (100units/ml) SC SCH (21:39)
[2023-05-22] MEDS: ACCU-CHEK COMFORT CURVE STRIP VI SCH (21:39)
[2023-05-23] VITALS (7 sets, daily range): BP systolic 97–120; BP diastolic 46–67; PULSE 65–109; RESP 16–20; TEMP 97.7–98.1; O2SAT 93–100
[2023-05-23] MEDS: KETOROLAC TROMETH 30 MG/ML 1ML VIAL IV PRN ×2 (04:52→23:52)
[2023-05-23 06:56] LABS: Basophils # (auto) 0 10 ^3/uL (0-0.2); Basophils % (auto) 0.7 % (0.0-2.0); Eosinophils # (auto) 0.1 10 ^3/uL (0-0.8); Eosinophils % (auto) 1.5 % (0.0-7.0); Hematocrit 37.6 % (36.0-46.0); Hemoglobin 12.1 g/dL (12.2-16.2); Lymphocytes # (auto) 1.3 10 ^3/uL (0.4-5.4); Lymphocytes % (auto) 30.8 % (10.0-50.0); Mean Corpuscular Hemoglobin 28.2 pg (28.0-32.0); Mean Corpuscular Hgb Conc. 32.2 g/dL (32.0-36.0); Mean Corpuscular Volume 87.5 fL (80.0-100.0); Monocytes # (auto) 0.5 10 ^3/uL (0-1.3); Neutrophils # (auto) 2.4 10 ^3/uL (1.6-8.6); Nucleated Red Blood Cells % 0.1 %; White Blood Cell 4.3 10^3/uL (4.4-10.8)
[2023-05-23] MEDS: InsuLIN REG 1unit/0.01ml Soln (100units/ml) SC SCH ×4 (07:00→21:47)
[2023-05-23] MEDS: ACCU-CHEK COMFORT CURVE STRIP VI SCH ×4 (07:15→21:46)
[2023-05-23 07:17] LABS: Alanine Aminotransferase 18 U/L (7-40); Albumin 3.6 g/dL (3.2-4.8); Alkaline Phosphatase 55 U/L (46-116); Anion Gap 9 (5-15); Aspartate Aminotransferase 23 U/L (13-40); BUN/Creatinine Ratio 13.7 (10.0-20.0); Bilirubin, Total 0.2 mg/dL (0.2-1.0); Blood Urea Nitrogen 10 mg/dL (9-23); Calcium 8.7 mg/dL (8.5-10.1); Carbon Dioxide 25 mmol/L (20-30); Chloride 106 mmol/L (98-107); Glucose 135 mg/dL (74-106); Sodium 140 mmol/L (136-145); Total Protein 5.7 g/dL (5.7-8.2)
[2023-05-23] MEDS: PANTOPRAZOLE 40 MG/10 ML VIAL INJ IV SCH (09:44)
[2023-05-23] MEDS: FLUoxetine HCL 20 MG CAP PO SCH (09:44)
[2023-05-23] MEDS: ENOXAPARIN SOD 40 MG/0.4 ML SYRINGE SC SCH (09:44)
[2023-05-23] MEDS: SODIUM CHLORIDE 0.9% 1,000 ML IV SCH ×3 (09:45→22:30)
[2023-05-23] MEDS: cefTRIAXone 1GM/50ML D5W 50 ML IV SCH (09:45)
[2023-05-23] MEDS: AMITRIPTYLINE HCL 10 MG TAB PO SCH (09:51)
[2023-05-23] MEDS: LISINOPRIL 10 MG TAB PO SCH (09:53)
[2023-05-23] MEDS ORDERED: TAMSULOSIN HYDROCHLORIDE 0.4 MG CAP PO ONE (10:30)
[2023-05-23] MEDS: HYDROmorphone HCL 2 MG/ML VL/or syr IV PRN ×2 (13:08→19:57)
[2023-05-23 15:14] LABS: COVID19 ANTIGEN SOFIA FIA NEGATIVE (NEGATIVE)
[2023-05-23 15:15] LABS: Rapid Influenza A Negative (Negative); Rapid Influenza B Negative (Negative)
[2023-05-23] MEDS ORDERED: TAMSULOSIN HYDROCHLORIDE 0.4 MG CAP PO SCH (18:00)
[2023-05-23] MEDS: ONDANSETRON HCL 4 MG/2 ML VIAL IV PRN ×2 (18:35→23:52)
[2023-05-24] MEDS: HYDROmorphone HCL 2 MG/ML VL/or syr IV PRN ×2 (02:09→08:27)
[2023-05-24] MEDS: ONDANSETRON HCL 4 MG/2 ML VIAL IV PRN ×2 (03:53→08:28)
[2023-05-24 05:00] VITALS: BP 90/64; PULSE 78; RESP 20; TEMP 98.4; O2SAT 97
[2023-05-24] MEDS: ACCU-CHEK COMFORT CURVE STRIP VI SCH ×2 (06:23→12:20)
[2023-05-24] MEDS: InsuLIN REG 1unit/0.01ml Soln (100units/ml) SC SCH ×2 (06:24→12:21)
[2023-05-24 06:36] LABS: Basophils # (auto) 0 10 ^3/uL (0-0.2); Basophils % (auto) 0.9 % (0.0-2.0); Eosinophils # (auto) 0.1 10 ^3/uL (0-0.8); Eosinophils % (auto) 1.6 % (0.0-7.0); Hematocrit 38.7 % (36.0-46.0); Hemoglobin 12.6 g/dL (12.2-16.2); Lymphocytes # (auto) 1.6 10 ^3/uL (0.4-5.4); Lymphocytes % (auto) 36.1 % (10.0-50.0); Mean Corpuscular Hemoglobin 28.4 pg (28.0-32.0); Mean Corpuscular Hgb Conc. 32.5 g/dL (32.0-36.0); Mean Corpuscular Volume 87.4 fL (80.0-100.0); Monocytes # (auto) 0.3 10 ^3/uL (0-1.3); Monocytes % (auto) 7.7 % (0.0-12.0); Neutrophils # (auto) 2.3 10 ^3/uL (1.6-8.6); Neutrophils % (auto) 53.7 % (37.0-80.0); Red Blood Cells 4.44 10^6/uL (4.0-5.20); Red Cell Distribution Width 13.6 % (11.8-14.3); White Blood Cell 4.3 10^3/uL (4.4-10.8)
[2023-05-24 06:49] LABS: Anion Gap 9 (5-15); Carbon Dioxide 23 mmol/L (20-30); Chloride 106 mmol/L (98-107); Potassium 4.2 mmol/L (3.5-5.1); Sodium 138 mmol/L (136-145)
[2023-05-24 06:50] LABS: Calcium 8.2 mg/dL (8.7-10.4)
[2023-05-24 06:55] LABS: BUN/Creatinine Ratio 6.9 (10.0-20.0); Blood Urea Nitrogen 5 mg/dL (9-23); Glucose 147 mg/dL (74-106)
[2023-05-24 08:00] VITALS: BP 105/46; PULSE 68; PULSE 70; RESP 20; TEMP 97.9; O2SAT 93
[2023-05-24] MEDS: cefTRIAXone 1GM/50ML D5W 50 ML IV SCH (08:29)
[2023-05-24] MEDS: PANTOPRAZOLE 40 MG/10 ML VIAL INJ IV SCH (08:29)
[2023-05-24] MEDS: FLUoxetine HCL 20 MG CAP PO SCH (08:29)
[2023-05-24] MEDS: ENOXAPARIN SOD 40 MG/0.4 ML SYRINGE SC SCH (08:29)
[2023-05-24] MEDS: AMITRIPTYLINE HCL 10 MG TAB PO SCH (08:30)
[2023-05-24] MEDS: LISINOPRIL 10 MG TAB PO SCH (08:31)
[2023-05-24 09:00] VITALS: BP 145/79; PULSE 68; RESP 18; TEMP 98; O2SAT 94
[2023-05-24] MEDS: SODIUM CHLORIDE 0.9% 1,000 ML IV SCH (10:30)
[2023-05-24 13:00] VITALS: BP 149/79; PULSE 70; RESP 20; TEMP 98.1; O2SAT 95
[2023-05-24 13:21] VITALS: BP 141/79; PULSE 70; RESP 20; TEMP 98.1; O2SAT 95
== END 2023-05-24 15:30 | disposition home or self-care (01) | DRG 690 ==
LOC: ER 12:13 → EDUNIT# 12:13 → EDBD 12:13 → OVERFLOW 17:34 → WEST WING 05-23 01:40
PROVIDERS: ADMIT Internal Medicine; ATTEND Student in an Organized Health Care Education/Training Program
DX: N13.6 Pyonephrosis (principal); Z68.42 Body mass index [BMI] 45.0-49.9, adult; I10 Essential (primary) hypertension; K76.0 Fatty (change of) liver, not elsewhere classified; E66.01 Morbid (severe) obesity due to excess calories; R19.7 Diarrhea, unspecified; Z20.822 Contact with and (suspected) exposure to COVID-19; E11.9 Type 2 diabetes mellitus without complications; F41.9 Anxiety disorder, unspecified; Z83.3 Family history of diabetes mellitus; Z86.73 Personal history of transient ischemic attack (TIA), and cerebral infarction without residual deficits; Z98.51 Tubal ligation status; Z90.49 Acquired absence of other specified parts of digestive tract; Z71.3 Dietary counseling and surveillance
CPT/HCPCS: 36415; 74176; 80048; 80053; 80061; 81001; 82962; 83036; 83605; 83690; 84443; 84484; 85025; 85048; 87040; 87045; 87086; 87177; 87426; 87427; 87493; 87804; 93005; C9113; G0378; J0696; J1815; J1885; J2405

== ENCOUNTER 2023-05-26 13:50 | Emergency (ER) | payer MEDICARE, BC, MEDICAID ==
[~2023-05-26] VITALS: Ht 162.6 cm; Wt 118.1 kg
[2023-05-26 14:00] VITALS: BP 148/92; RESP 20; O2SAT 97
[2023-05-26 14:36] VITALS: PULSE 73
[2023-05-26 14:54] LABS: Basophils # (auto) 0 10 ^3/uL (0-0.2); Basophils % (auto) 0.7 % (0.0-2.0); Eosinophils # (auto) 0 10 ^3/uL (0-0.8); Eosinophils % (auto) 0.6 % (0.0-7.0); Hematocrit 42.6 % (36.0-46.0); Hemoglobin 13.9 g/dL (12.2-16.2); Lymphocytes # (auto) 1.5 10 ^3/uL (0.4-5.4); Lymphocytes % (auto) 23.4 % (10.0-50.0); Mean Corpuscular Hemoglobin 28.2 pg (28.0-32.0); Mean Corpuscular Hgb Conc. 32.7 g/dL (32.0-36.0); Mean Corpuscular Volume 86.2 fL (80.0-100.0); Monocytes # (auto) 0.4 10 ^3/uL (0-1.3); Monocytes % (auto) 6.6 % (0.0-12.0); Neutrophils # (auto) 4.6 10 ^3/uL (1.6-8.6); Neutrophils % (auto) 68.7 % (37.0-80.0); Nucleated Red Blood Cells % 0.2 %; Red Blood Cells 4.94 10^6/uL (4.0-5.20); White Blood Cell 6.6 10^3/uL (4.4-10.8)
[2023-05-26 15:08] LABS: Alanine Aminotransferase 30 U/L (7-40); Albumin 4.5 g/dL (3.2-4.8); Alkaline Phosphatase 72 U/L (46-116); Anion Gap 9 (5-15); Aspartate Aminotransferase 24 U/L (13-40); BUN/Creatinine Ratio 9.7 (10.0-20.0); Bilirubin, Total 0.2 mg/dL (0.2-1.0); Blood Urea Nitrogen 7 mg/dL (9-23); Calcium 9.8 mg/dL (8.5-10.1); Carbon Dioxide 27 mmol/L (20-30); Chloride 101 mmol/L (98-107); Glucose 121 mg/dL (74-106); Potassium 3.8 mmol/L (3.5-5.1); Sodium 137 mmol/L (136-145); Total Protein 6.9 g/dL (5.7-8.2)
[2023-05-26 15:30] LABS: Urine Bacteria NONE SEEN /hpf (None Seen); Urine Blood Negative /uL (Negative); Urine Clarity Clear (Clear); Urine Protein, UAD Negative (Negative); Urine Specific Gravity 1.003 (1.001-1.035); Urine Urobilinogen Normal (Negative); Urine WBC 1 /hpf (0 - 5); Urine pH 6.5 (5.0-8.0)
[2023-05-26 15:33] LABS: Urine Color STRAW (Yellow)
== END 2023-05-26 23:08 | disposition home or self-care (01) ==
LOC: ER 13:50 → EDBD 13:50 → ER 22:58
DX: R42 Dizziness and giddiness (principal); E11.649 Type 2 diabetes mellitus with hypoglycemia without coma; I10 Essential (primary) hypertension; Z90.49 Acquired absence of other specified parts of digestive tract; Z98.51 Tubal ligation status; Z86.73 Personal history of transient ischemic attack (TIA), and cerebral infarction without residual deficits; Z88.2 Allergy status to sulfonamides
CPT/HCPCS: 36415; 74176; 80053; 81001; 82962; 85025; 93005

== ENCOUNTER 2023-07-08 20:56 | Emergency (ER) | payer MEDICARE, BC, MEDICAID ==
[~2023-07-08] VITALS: Ht 162.6 cm; Wt 126.0 kg
[2023-07-09] MEDS ORDERED: METOCLOPRAMIDE HCL 5MG/ml INJ 2ml VIAL IM ONE (00:45)
[2023-07-09] MEDS ORDERED: HYDROmorphone HCL 2 MG/ML VL/or syr IM ONE (00:45)
[2023-07-09] MEDS ORDERED: ONDANSETRON ODT 4 MG TAB PO ONE (00:45)
[2023-07-09 01:10] LABS: Basophils # (auto) 0.1 10 ^3/uL (0-0.2); Basophils % (auto) 0.8 % (0.0-2.0); Eosinophils # (auto) 0.1 10 ^3/uL (0-0.8); Hematocrit 41.3 % (36.0-46.0); Hemoglobin 13.6 g/dL (12.2-16.2); Lymphocytes # (auto) 2.2 10 ^3/uL (0.4-5.4); Lymphocytes % (auto) 30.3 % (10.0-50.0); Mean Corpuscular Hemoglobin 28.2 pg (28.0-32.0); Mean Corpuscular Volume 85.5 fL (80.0-100.0); Monocytes # (auto) 0.5 10 ^3/uL (0-1.3); Neutrophils # (auto) 4.4 10 ^3/uL (1.6-8.6); Neutrophils % (auto) 59.9 % (37.0-80.0); Red Blood Cells 4.83 10^6/uL (4.0-5.20); Red Cell Distribution Width 14.5 % (11.8-14.3); White Blood Cell 7.3 10^3/uL (4.4-10.8)
[2023-07-09 01:29] LABS: Alanine Aminotransferase 18 U/L (7-40); Albumin 4.2 g/dL (3.2-4.8); Alkaline Phosphatase 62 U/L (46-116); Anion Gap 6 (5-15); Aspartate Aminotransferase 13 U/L (13-40); BUN/Creatinine Ratio 11.7 (10.0-20.0); Bilirubin, Total 0.4 mg/dL (0.2-1.0); Blood Urea Nitrogen 7 mg/dL (9-23); Carbon Dioxide 26 mmol/L (20-30); Chloride 106 mmol/L (98-107); Glucose 106 mg/dL (74-106); Lipase 32 U/L (12-53); Magnesium 1.7 mg/dL (1.6-2.6); Potassium 3.6 mmol/L (3.5-5.1); Sodium 138 mmol/L (136-145); Total Protein 6.7 g/dL (5.7-8.2)
[2023-07-09 03:07] LABS: Urine Bacteria FEW /hpf (None Seen); Urine Blood TRACE /uL (Negative); Urine Budding Yeast MODERATE /hpf (None Seen); Urine Clarity HAZY (Clear); Urine Color Yellow (Yellow); Urine Mucus FEW (None Seen); Urine Protein, UAD TRACE (Negative); Urine Specific Gravity 1.015 (1.001-1.035); Urine Urobilinogen Normal (Negative); Urine WBC 814 /hpf (0 - 5); Urine WBC Clumps PRESENT /hpf (None Seen); Urine pH 6.5 (5.0-8.0)
[2023-07-09 03:24] LABS: Amphetamine Screen, Urine Neg (NEGATIVE); Barbiturate Scree,Urine Neg (NEGATIVE); Benzodiazephine Screen, Urine Neg (NEGATIVE); Cannabinoid Screen, Urine Neg (NEGATIVE); Cocaine Screen, Urine Neg (NEGATIVE); Opiate Scree,Urine Neg (NEGATIVE); Phencyclidine Screen, Urine Neg (NEGATIVE)
[2023-07-09] MEDS ORDERED: FLUCONAZOLE 100 MG TAB PO ONE (04:30)
[2023-07-09] MEDS ORDERED: cefTRIAXone SOD 1,000 MG VL IM ONE (04:30)
[2023-07-09] MEDS ORDERED: PANT40TA2 PO (04:39)
[2023-07-09] MEDS ORDERED: DICY10CA PO (04:39)
[2023-07-09] MEDS ORDERED: NITR-52 PO (04:39)
[2023-07-09] MEDS ORDERED: METO-281 PO (04:39)
[2023-07-09] MEDS ORDERED: NITR-87 PO (04:39)
[2023-07-09] MEDS ORDERED: CEPH250C PO (04:39)
[2023-07-09 05:30] VITALS: BP 134/68; PULSE 74; RESP 18; O2SAT 97
== END 2023-07-09 05:40 | disposition home or self-care (01) ==
LOC: ER 20:56
DX: N39.0 Urinary tract infection, site not specified (principal); I10 Essential (primary) hypertension; E11.9 Type 2 diabetes mellitus without complications; F41.9 Anxiety disorder, unspecified; Z98.890 Other specified postprocedural states; Z88.8 Allergy status to other drugs, medicaments and biological substances; Z79.899 Other long term (current) drug therapy
CPT/HCPCS: 36415; 74022; 80053; 80307; 81001; 83690; 83735; 85025; 96372; 99284; J0696; J1170; J2765; Q0162

== ENCOUNTER 2023-07-11 01:17 | Inpatient (IN) | payer MEDICARE, BC, MEDICAID ==
[~2023-07-11] VITALS: Ht 162.6 cm; Wt 125.5 kg
[2023-07-11] VITALS (7 sets, daily range): BP systolic 110–141; BP diastolic 56–68; PULSE 63–81; RESP 14–19; TEMP 98–98.2; O2SAT 91–98
[~2023-07-11 01:17] MED LIST changes: +CEPH250C PO; +DICY10CA PO; +METO-281 PO; +NITR-52 PO; +NITR-87 PO; +PANT40TA2 PO
[2023-07-11] MEDS ORDERED: LORazepam 2MG/ML-1ML VIAL ONE (01:39)
[2023-07-11] MEDS ORDERED: DEXTROSE (50%) 50ML SYRG IV ONE (02:15)
[2023-07-11 03:03] LABS: Basophils # (auto) 0 10 ^3/uL (0-0.2); Eosinophils # (auto) 0.1 10 ^3/uL (0-0.8); Lymphocytes # (auto) 1.5 10 ^3/uL (0.4-5.4); Monocytes # (auto) 0.3 10 ^3/uL (0-1.3); Neutrophils # (auto) 2.6 10 ^3/uL (1.6-8.6); White Blood Cell 4.6 10^3/uL (4.4-10.8)
[2023-07-11 03:05] LABS: Basophils % (auto) 0.8 % (0.0-2.0); Eosinophils % (auto) 1.9 % (0.0-7.0); Hematocrit 40.6 % (36.0-46.0); Hemoglobin 13.5 g/dL (12.2-16.2); Lymphocytes % (auto) 32.5 % (10.0-50.0); Mean Corpuscular Hemoglobin 28.7 pg (28.0-32.0); Mean Corpuscular Hgb Conc. 33.3 g/dL (32.0-36.0); Mean Corpuscular Volume 86.4 fL (80.0-100.0); Monocytes % (auto) 6.8 % (0.0-12.0); Nucleated Red Blood Cells % 0.4 %; Red Cell Distribution Width 14.7 % (11.8-14.3)
[2023-07-11 03:35] LABS: Alanine Aminotransferase 21 U/L (7-40); Alkaline Phosphatase 62 U/L (46-116); Anion Gap 9 (5-15); Aspartate Aminotransferase 20 U/L (13-40); BUN/Creatinine Ratio 18.2 (10.0-20.0); Bilirubin, Total 0.2 mg/dL (0.2-1.0); Blood Urea Nitrogen 12 mg/dL (9-23); Carbon Dioxide 26 mmol/L (20-30); Chloride 105 mmol/L (98-107); Glucose 104 mg/dL (74-106); Magnesium 1.4 mg/dL (1.6-2.6); Potassium 4.1 mmol/L (3.5-5.1); Sodium 140 mmol/L (136-145); Total Protein 6.1 g/dL (5.7-8.2)
[2023-07-11 04:18] LABS: Blood Alcohol < 3.0 mg/dL (<10)
[2023-07-11 04:59] LABS: Platelet Estimate Decreased
[2023-07-11] MEDS ORDERED: ASPirin 81 mg TAB PO ONE (05:15)
[2023-07-11] MEDS ORDERED: PANTOPRAZOLE 40 MG/10 ML VIAL INJ IV ONE (05:15)
[2023-07-11] MEDS ORDERED: HEPARIN DRIP/D5W 100UNITS/ML 250 ML IV SCH (05:15)
[2023-07-11] MEDS ORDERED: ATORVASTATIN 20 MG TAB PO ONE (05:15)
[2023-07-11] MEDS ORDERED: ACETAMINOPHEN 325 MG TAB PO PRN (05:15)
[2023-07-11] MEDS ORDERED: NITROGLYCERIN 0.4 MG SL TAB SL PRN (05:15)
[2023-07-11] MEDS ORDERED: HEPARIN SODIUM (PORCINE) 5000 UNITS/ML 1ML VIAL IV ONE ×2 (05:15→06:45)
[2023-07-11] MEDS ORDERED: cefTRIAXone 1GM/50ML D5W 50 ML IV ONE (05:30)
[2023-07-11] MEDS ORDERED: SODIUM CHLORIDE 0.9% 1,000 ML IV ONE (05:30)
[2023-07-11] MEDS ORDERED: MORPHINE SULFATE 4 MG/ML SYR/VIAL IV ONE (05:30)
[2023-07-11] MEDS ORDERED: ONDANSETRON HCL 4 MG/2 ML VIAL IV ONE (05:30)
[2023-07-11 05:37] LABS: Triglycerides 142 mg/dL (< 150)
[2023-07-11 05:38] LABS: LDL Cholesterol 58 mg/dL (< 100)
[2023-07-11 05:39] LABS: Cholesterol 107 mg/dL (< 200); HDL Cholesterol 38 mg/dL (40-59)
[2023-07-11 06:01] LABS: INR 1.07 (0.9-1.15); Partial Thromboplastin Time < 20.0 SEC (24.5-34.5); Prothrombin Time 11.2 sec (9.3-11.8)
[2023-07-11] MEDS: SODIUM CHLOR 0.9% PF (SALINE LOCK) 10ML VIAL/SYR IV SCH ×3 (06:18→22:38)
[2023-07-11 07:54] LABS: Urine Epithelial Cast None Seen /hpf (<5)
[2023-07-11 08:25] LABS: Amphetamine Screen, Urine Neg (NEGATIVE); Barbiturate Scree,Urine Neg (NEGATIVE)
[2023-07-11 08:26] LABS: Benzodiazephine Screen, Urine Pos (NEGATIVE); Cannabinoid Screen, Urine Neg (NEGATIVE); Cocaine Screen, Urine Neg (NEGATIVE); Opiate Scree,Urine Neg (NEGATIVE); Phencyclidine Screen, Urine Neg (NEGATIVE)
[2023-07-11 08:27] LABS: Urine Bacteria FEW /hpf (None Seen); Urine Blood Negative /uL (Negative); Urine Clarity HAZY (Clear); Urine Color Yellow (Yellow); Urine Hyaline Cast FEW /lpf (0 - 2); Urine Mucus FEW (None Seen); Urine Protein, UAD TRACE (Negative); Urine Specific Gravity 1.018 (1.001-1.035); Urine Urobilinogen Normal (Negative); Urine WBC 50 /hpf (0 - 5)
[2023-07-11] MEDS ORDERED: DEXTROSE (50%) 50ML SYRG IV PRN (11:15)
[2023-07-11] MEDS: ACCU-CHEK COMFORT CURVE STRIP VI SCH ×3 (12:25→22:37)
[2023-07-11] MEDS: InsuLIN REG 1unit/0.01ml Soln (100units/ml) SC SCH ×3 (12:34→22:00)
[2023-07-11] MEDS ORDERED: MORPHINE SULFATE INJ 2 MG/ml SYRG IV PRN (12:45)
[2023-07-11] MEDS: MAGNESIUM SULFATE 1GM/100ML 100 ML IV SCH ×2 (13:53→16:12)
[2023-07-11] MEDS: METOPROLOL SUCCINATE XL 50 MG TAB PO SCH (13:57)
[2023-07-11] MEDS: ONDANSETRON HCL 4 MG/2 ML VIAL IV PRN (13:57)
[2023-07-11] MEDS ORDERED: CYCLOBENZAPRINE HCL 10 MG TAB PO ONE (17:00)
[2023-07-11] MEDS ORDERED: KETOROLAC TROMETH 30 MG/ML 1ML VIAL IV ONE (17:00)
[2023-07-11] MEDS ORDERED: DICYCLOMINE HCL (10MG/ML) 2 ML AMPULE IM ONE (18:15)
[2023-07-11] MEDS: OXYCODONE W/ ACETAMINOPHEN 5/325MG TABLET PO PRN (20:27)
[2023-07-11] MEDS ORDERED: DIPH2.5T73 PO (21:01)
[2023-07-11] MEDS ORDERED: MECL1TAB32 PO (21:01)
[2023-07-11] MEDS: PANTOPRAZOLE 40 MG TAB PO SCH (22:36)
[2023-07-11] MEDS: FUROSEMIDE 40 MG/4 ML VIAL IV SCH (22:37)
[2023-07-11] MEDS: DICYCLOMINE HCL 10 MG CAP PO SCH (22:37)
[2023-07-11] MEDS: ATORVASTATIN 20 MG TAB PO SCH (22:37)
[2023-07-12] VITALS (8 sets, daily range): BP systolic 102–135; BP diastolic 55–67; PULSE 54–75; RESP 17–19; TEMP 98–98.2; O2SAT 0–97
[2023-07-12] MEDS: OXYCODONE W/ ACETAMINOPHEN 5/325MG TABLET PO PRN ×3 (02:12→16:07)
[2023-07-12] MEDS: ONDANSETRON HCL 4 MG/2 ML VIAL IV PRN ×3 (03:40→16:08)
[2023-07-12] MEDS: DICYCLOMINE HCL 10 MG CAP PO SCH ×4 (05:24→21:54)
[2023-07-12] MEDS: SODIUM CHLOR 0.9% PF (SALINE LOCK) 10ML VIAL/SYR IV SCH ×3 (05:24→21:55)
[2023-07-12] MEDS: ACCU-CHEK COMFORT CURVE STRIP VI SCH ×4 (05:24→21:55)
[2023-07-12] MEDS: InsuLIN REG 1unit/0.01ml Soln (100units/ml) SC SCH ×4 (05:25→21:55)
[2023-07-12 06:48] LABS: Alanine Aminotransferase 18 U/L (7-40); Albumin 3.5 g/dL (3.2-4.8); Alkaline Phosphatase 60 U/L (46-116); Anion Gap 6 (5-15); Aspartate Aminotransferase 16 U/L (13-40); BUN/Creatinine Ratio 9.9 (10.0-20.0); Basophils # (auto) 0 10 ^3/uL (0-0.2); Basophils % (auto) 0.5 % (0.0-2.0); Bilirubin, Total 0.5 mg/dL (0.2-1.0); Blood Urea Nitrogen 7 mg/dL (9-23); Calcium 8.6 mg/dL (8.7-10.4); Carbon Dioxide 27 mmol/L (20-30); Chloride 105 mmol/L (98-107); Eosinophils # (auto) 0.1 10 ^3/uL (0-0.8); Eosinophils % (auto) 2.7 % (0.0-7.0); Glucose 110 mg/dL (74-106); Hematocrit 37.2 % (36.0-46.0); Hemoglobin 12.2 g/dL (12.2-16.2); Lymphocytes # (auto) 1.7 10 ^3/uL (0.4-5.4); Lymphocytes % (auto) 37.1 % (10.0-50.0); Mean Corpuscular Hemoglobin 28.1 pg (28.0-32.0); Mean Corpuscular Hgb Conc. 32.7 g/dL (32.0-36.0); Mean Corpuscular Volume 85.9 fL (80.0-100.0); Monocytes # (auto) 0.4 10 ^3/uL (0-1.3); Neutrophils # (auto) 2.3 10 ^3/uL (1.6-8.6); Neutrophils % (auto) 50.7 % (37.0-80.0); Nucleated Red Blood Cells % 0.1 %; Potassium 4.1 mmol/L (3.5-5.1); Red Blood Cells 4.33 10^6/uL (4.0-5.20); Red Cell Distribution Width 14.3 % (11.8-14.3); Sodium 138 mmol/L (136-145); Total Protein 5.7 g/dL (5.7-8.2); White Blood Cell 4.6 10^3/uL (4.4-10.8)
[2023-07-12] MEDS: cefTRIAXone 1GM/50ML D5W 50 ML IV SCH (09:19)
[2023-07-12] MEDS: FUROSEMIDE 40 MG/4 ML VIAL IV SCH ×2 (11:38→21:55)
[2023-07-12] MEDS: FLUoxetine HCL 20 MG CAP PO SCH (11:39)
[2023-07-12] MEDS: AMITRIPTYLINE HCL 10 MG TAB PO SCH (11:40)
[2023-07-12] MEDS: PANTOPRAZOLE 40 MG TAB PO SCH ×2 (11:40→21:54)
[2023-07-12] MEDS: LISINOPRIL 10 MG TAB PO SCH (11:40)
[2023-07-12] MEDS: METOPROLOL SUCCINATE XL 50 MG TAB PO SCH (11:40)
[2023-07-12] MEDS: MECLIZINE HCL 25 MG TAB PO PRN (14:44)
[2023-07-12] MEDS: PANCREATIC ENZYMES 4200 UNIT CAP PO SCH (18:26)
[2023-07-12] MEDS: ATORVASTATIN 20 MG TAB PO SCH (21:54)
[2023-07-13] VITALS (9 sets, daily range): BP systolic 100–116; BP diastolic 42–64; PULSE 56–92; RESP 16–18; TEMP 97.4–98.4; O2SAT 87–97
[2023-07-13] MEDS: OXYCODONE W/ ACETAMINOPHEN 5/325MG TABLET PO PRN ×4 (02:29→23:33)
[2023-07-13] MEDS: ONDANSETRON HCL 4 MG/2 ML VIAL IV PRN ×3 (02:30→19:48)
[2023-07-13] MEDS: SODIUM CHLOR 0.9% PF (SALINE LOCK) 10ML VIAL/SYR IV SCH ×3 (05:35→22:20)
[2023-07-13] MEDS: DICYCLOMINE HCL 10 MG CAP PO SCH ×4 (05:36→22:20)
[2023-07-13] MEDS: ACCU-CHEK COMFORT CURVE STRIP VI SCH ×4 (05:36→22:20)
[2023-07-13] MEDS: InsuLIN REG 1unit/0.01ml Soln (100units/ml) SC SCH ×4 (05:44→22:00)
[2023-07-13 06:46] LABS: Basophils # (auto) 0 10 ^3/uL (0-0.2); Basophils % (auto) 0.6 % (0.0-2.0); Eosinophils # (auto) 0.1 10 ^3/uL (0-0.8); Eosinophils % (auto) 1.6 % (0.0-7.0); Hematocrit 40.4 % (36.0-46.0); Hemoglobin 13.3 g/dL (12.2-16.2); Lymphocytes # (auto) 1.5 10 ^3/uL (0.4-5.4); Lymphocytes % (auto) 28.9 % (10.0-50.0); Mean Corpuscular Hemoglobin 28.4 pg (28.0-32.0); Mean Corpuscular Volume 86.2 fL (80.0-100.0); Monocytes # (auto) 0.4 10 ^3/uL (0-1.3); Monocytes % (auto) 8.6 % (0.0-12.0); Neutrophils # (auto) 3.1 10 ^3/uL (1.6-8.6); Neutrophils % (auto) 60.3 % (37.0-80.0); Nucleated Red Blood Cells % 0.1 %; Red Blood Cells 4.69 10^6/uL (4.0-5.20); Red Cell Distribution Width 14.2 % (11.8-14.3); White Blood Cell 5.2 10^3/uL (4.4-10.8)
[2023-07-13 07:08] LABS: Alanine Aminotransferase 21 U/L (7-40); Albumin 3.9 g/dL (3.2-4.8); Alkaline Phosphatase 68 U/L (46-116); Amylase 39 U/L (30-118); Anion Gap 8 (5-15); Aspartate Aminotransferase 19 U/L (13-40); Bilirubin, Total 0.6 mg/dL (0.2-1.0); Blood Urea Nitrogen 8 mg/dL (9-23); Calcium 8.9 mg/dL (8.7-10.4); Carbon Dioxide 28 mmol/L (20-30); Chloride 101 mmol/L (98-107); Glucose 140 mg/dL (74-106); Lipase 29 U/L (12-53); Potassium 4.2 mmol/L (3.5-5.1); Sodium 137 mmol/L (136-145); Total Protein 6.6 g/dL (5.7-8.2)
[2023-07-13] MEDS: cefTRIAXone 1GM/50ML D5W 50 ML IV SCH (08:37)
[2023-07-13] MEDS: PANCREATIC ENZYMES 4200 UNIT CAP PO SCH ×3 (08:37→18:12)
[2023-07-13] MEDS: PANTOPRAZOLE 40 MG TAB PO SCH (09:51)
[2023-07-13] MEDS: FLUoxetine HCL 20 MG CAP PO SCH (09:51)
[2023-07-13] MEDS: AMITRIPTYLINE HCL 10 MG TAB PO SCH (09:51)
[2023-07-13] MEDS: LISINOPRIL 10 MG TAB PO SCH (09:52)
[2023-07-13] MEDS: FUROSEMIDE 40 MG/4 ML VIAL IV SCH ×2 (09:52→22:19)
[2023-07-13] MEDS: METOPROLOL SUCCINATE XL 50 MG TAB PO SCH (09:52)
[2023-07-13] MEDS ORDERED: FAMOTIDINE (10MG/ML) 2ML VL IV ONE (16:30)
[2023-07-13] MEDS ORDERED: oxyCODONE HCL 5MG TAB PO PRN (16:30)
[2023-07-13] MEDS ORDERED: PANCREATIC ENZYMES 4200 UNIT CAP PO ONE (16:30)
[2023-07-13] MEDS ORDERED: CIPROFLOXACIN HYDROCHLORIDE 250 MG TAB PO ONE (16:30)
[2023-07-13] MEDS: ATORVASTATIN 20 MG TAB PO SCH (22:19)
[2023-07-13] MEDS: FAMOTIDINE (10MG/ML) 2ML VL IV SCH (22:19)
[2023-07-13] MEDS: CIPROFLOXACIN HYDROCHLORIDE 250 MG TAB PO SCH (22:20)
[2023-07-13] MEDS: metroNIDAZOLE 500 MG TAB PO SCH (22:20)
[2023-07-13] MEDS: MECLIZINE HCL 25 MG TAB PO PRN (22:20)
[2023-07-14] VITALS (7 sets, daily range): BP systolic 81–121; BP diastolic 41–66; PULSE 56–76; RESP 18–20; TEMP 97.7–98; O2SAT 91–94
[2023-07-14] MEDS: ONDANSETRON HCL 4 MG/2 ML VIAL IV PRN ×2 (03:34→21:03)
[2023-07-14] MEDS ORDERED: DICYCLOMINE HCL 10 MG CAP ONE (05:37)
[2023-07-14] MEDS: DICYCLOMINE HCL 10 MG CAP PO SCH ×4 (05:39→21:09)
[2023-07-14] MEDS: SODIUM CHLOR 0.9% PF (SALINE LOCK) 10ML VIAL/SYR IV SCH ×3 (05:40→21:10)
[2023-07-14] MEDS: metroNIDAZOLE 500 MG TAB PO SCH ×3 (05:40→21:09)
[2023-07-14] MEDS: OXYCODONE W/ ACETAMINOPHEN 5/325MG TABLET PO PRN ×3 (05:59→21:09)
[2023-07-14] MEDS: ACCU-CHEK COMFORT CURVE STRIP VI SCH ×4 (08:01→21:11)
[2023-07-14] MEDS: InsuLIN REG 1unit/0.01ml Soln (100units/ml) SC SCH ×4 (08:02→21:17)
[2023-07-14] MEDS: PANCREATIC ENZYMES 4200 UNIT CAP PO SCH ×3 (08:04→18:00)
[2023-07-14] MEDS: AMITRIPTYLINE HCL 10 MG TAB PO SCH (09:16)
[2023-07-14] MEDS: FAMOTIDINE (10MG/ML) 2ML VL IV SCH ×2 (09:16→21:10)
[2023-07-14] MEDS: FUROSEMIDE 40 MG/4 ML VIAL IV SCH (09:17)
[2023-07-14] MEDS: CIPROFLOXACIN HYDROCHLORIDE 250 MG TAB PO SCH ×2 (09:17→21:08)
[2023-07-14] MEDS: FLUoxetine HCL 20 MG CAP PO SCH (09:17)
[2023-07-14] MEDS: LISINOPRIL 10 MG TAB PO SCH (09:18)
[2023-07-14] MEDS: METOPROLOL SUCCINATE XL 50 MG TAB PO SCH (09:18)
[2023-07-14] MEDS ORDERED: PANCREATIC ENZYMES 4200 UNIT CAP PO SCH (18:00)
[2023-07-14] MEDS: ATORVASTATIN 20 MG TAB PO SCH (21:09)
[2023-07-15] MEDS: DICYCLOMINE HCL 10 MG CAP PO SCH ×4 (05:20→21:16)
[2023-07-15] MEDS: metroNIDAZOLE 500 MG TAB PO SCH ×3 (05:20→21:17)
[2023-07-15] MEDS: SODIUM CHLOR 0.9% PF (SALINE LOCK) 10ML VIAL/SYR IV SCH ×3 (05:21→21:16)
[2023-07-15] MEDS: OXYCODONE W/ ACETAMINOPHEN 5/325MG TABLET PO PRN ×2 (05:21→21:22)
[2023-07-15] MEDS: InsuLIN REG 1unit/0.01ml Soln (100units/ml) SC SCH ×4 (05:26→21:48)
[2023-07-15] MEDS: ACCU-CHEK COMFORT CURVE STRIP VI SCH ×4 (05:26→21:48)
[2023-07-15 05:33] VITALS: BP 95/44; PULSE 66; RESP 20; TEMP 97.6; O2SAT 95
[2023-07-15 08:00] VITALS: PULSE 58; PULSE 68; RESP 18; O2SAT 94
[2023-07-15] MEDS: PANCREATIC ENZYMES 4200 UNIT CAP PO SCH ×3 (09:56→17:23)
[2023-07-15] MEDS: FLUoxetine HCL 20 MG CAP PO SCH (09:56)
[2023-07-15] MEDS: METOPROLOL SUCCINATE XL 50 MG TAB PO SCH (09:57)
[2023-07-15] MEDS: AMITRIPTYLINE HCL 10 MG TAB PO SCH (09:57)
[2023-07-15] MEDS: FAMOTIDINE (10MG/ML) 2ML VL IV SCH ×2 (09:57→21:16)
[2023-07-15] MEDS: CIPROFLOXACIN HYDROCHLORIDE 250 MG TAB PO SCH ×2 (09:57→21:17)
[2023-07-15 10:52] VITALS: BP 103/42; PULSE 68; RESP 18; TEMP 97.7; O2SAT 94
[2023-07-15] MEDS ORDERED: MODA100T52 PO (11:49)
[2023-07-15] MEDS ORDERED: FURO20TA3 PO (11:49)
[2023-07-15] MEDS ORDERED: INSU1INJ19 SC (11:49)
[2023-07-15] MEDS ORDERED: ZOLP10TA6 PO (11:49)
[2023-07-15] MEDS ORDERED: ONDA-155 PO (11:49)
[2023-07-15] MEDS ORDERED: ALPR0.254 PO (11:49)
[2023-07-15 20:00] VITALS: PULSE 63; RESP 16; O2SAT 95
[2023-07-15] MEDS: ATORVASTATIN 20 MG TAB PO SCH (21:16)
[2023-07-15] MEDS: ONDANSETRON HCL 4 MG/2 ML VIAL IV PRN (21:53)
[2023-07-15 22:00] VITALS: BP 107/48; PULSE 62; RESP 20; TEMP 97.6; O2SAT 96
[2023-07-16] MEDS ORDERED: TEMAZEPAM 15 MG CAP PO ONE ×2 (03:00→22:00)
[2023-07-16] MEDS: MECLIZINE HCL 25 MG TAB PO PRN ×3 (03:16→17:36)
[2023-07-16] MEDS: DICYCLOMINE HCL 10 MG CAP PO SCH ×4 (06:28→22:19)
[2023-07-16] MEDS: SODIUM CHLOR 0.9% PF (SALINE LOCK) 10ML VIAL/SYR IV SCH ×3 (06:28→22:20)
[2023-07-16] MEDS: metroNIDAZOLE 500 MG TAB PO SCH ×3 (06:28→22:20)
[2023-07-16] MEDS: ACCU-CHEK COMFORT CURVE STRIP VI SCH ×4 (06:32→22:27)
[2023-07-16] MEDS: OXYCODONE W/ ACETAMINOPHEN 5/325MG TABLET PO PRN ×2 (06:46→17:36)
[2023-07-16] MEDS: InsuLIN REG 1unit/0.01ml Soln (100units/ml) SC SCH ×4 (06:51→22:00)
[2023-07-16 06:53] LABS: Chloride 106 mmol/L (98-107); Potassium 4.1 mmol/L (3.5-5.1); Sodium 139 mmol/L (136-145)
[2023-07-16 06:54] LABS: Anion Gap 7 (5-15); Calcium 9.3 mg/dL (8.5-10.1); Carbon Dioxide 26 mmol/L (20-30)
[2023-07-16 06:56] LABS: Basophils # (auto) 0 10 ^3/uL (0-0.2); Basophils % (auto) 0.6 % (0.0-2.0); Eosinophils # (auto) 0.1 10 ^3/uL (0-0.8); Eosinophils % (auto) 2.6 % (0.0-7.0); Hematocrit 40.6 % (36.0-46.0); Hemoglobin 13.5 g/dL (12.2-16.2); Lymphocytes # (auto) 1.1 10 ^3/uL (0.4-5.4); Lymphocytes % (auto) 25.9 % (10.0-50.0); Mean Corpuscular Hemoglobin 28.4 pg (28.0-32.0); Mean Corpuscular Hgb Conc. 33.3 g/dL (32.0-36.0); Mean Corpuscular Volume 85.3 fL (80.0-100.0); Monocytes # (auto) 0.4 10 ^3/uL (0-1.3); Monocytes % (auto) 8.5 % (0.0-12.0); Neutrophils # (auto) 2.7 10 ^3/uL (1.6-8.6); Neutrophils % (auto) 62.4 % (37.0-80.0); Nucleated Red Blood Cells % 0.1 %; Red Blood Cells 4.77 10^6/uL (4.0-5.20); Red Cell Distribution Width 14.8 % (11.8-14.3); White Blood Cell 4.4 10^3/uL (4.4-10.8)
[2023-07-16 06:59] LABS: Glucose 142 mg/dL (74-106)
[2023-07-16 07:01] LABS: BUN/Creatinine Ratio 6.8 (10.0-20.0); Blood Urea Nitrogen < 5 mg/dL (9-23)
[2023-07-16 08:00] VITALS: PULSE 67
[2023-07-16 09:00] VITALS: BP 119/70; PULSE 71; RESP 18; TEMP 97.8; O2SAT 96
[2023-07-16] MEDS: CIPROFLOXACIN HYDROCHLORIDE 250 MG TAB PO SCH ×2 (09:01→22:21)
[2023-07-16] MEDS: FAMOTIDINE (10MG/ML) 2ML VL IV SCH ×2 (09:01→22:18)
[2023-07-16] MEDS: FLUoxetine HCL 20 MG CAP PO SCH (09:01)
[2023-07-16] MEDS: AMITRIPTYLINE HCL 10 MG TAB PO SCH (09:01)
[2023-07-16] MEDS: PANCREATIC ENZYMES 4200 UNIT CAP PO SCH ×3 (09:02→17:37)
[2023-07-16] MEDS: METOPROLOL SUCCINATE XL 50 MG TAB PO SCH (09:02)
[2023-07-16] MEDS ORDERED: GOLYTELY 4L KIT PO ONE (12:00)
[2023-07-16 13:37] VITALS: BP 118/65; PULSE 60; RESP 20; TEMP 97.9; O2SAT 91
[2023-07-16 16:49] VITALS: BP 119/57; PULSE 57; RESP 20; TEMP 98.1; O2SAT 96
[2023-07-16 20:00] VITALS: PULSE 60; PULSE 75; RESP 17; O2SAT 95
[2023-07-16 22:00] VITALS: BP 119/67; PULSE 59; PULSE 60; RESP 18; TEMP 97.3; O2SAT 94
[2023-07-16] MEDS: ONDANSETRON HCL 4 MG/2 ML VIAL IV PRN (22:18)
[2023-07-16] MEDS: ATORVASTATIN 20 MG TAB PO SCH (22:20)
[2023-07-17] VITALS (8 sets, daily range): BP systolic 99–124; BP diastolic 46–65; PULSE 60–79; RESP 12–20; TEMP 97.6–98; O2SAT 91–100
[2023-07-17] MEDS: OXYCODONE W/ ACETAMINOPHEN 5/325MG TABLET PO PRN ×3 (02:10→17:33)
[2023-07-17 05:20] LABS: Basophils # (auto) 0 10 ^3/uL (0-0.2); Basophils % (auto) 0.8 % (0.0-2.0); Eosinophils # (auto) 0.1 10 ^3/uL (0-0.8); Eosinophils % (auto) 2.8 % (0.0-7.0); Hematocrit 39.2 % (36.0-46.0); Hemoglobin 13.2 g/dL (12.2-16.2); Lymphocytes # (auto) 1.1 10 ^3/uL (0.4-5.4); Lymphocytes % (auto) 27.5 % (10.0-50.0); Mean Corpuscular Hemoglobin 28.6 pg (28.0-32.0); Mean Corpuscular Hgb Conc. 33.6 g/dL (32.0-36.0); Mean Corpuscular Volume 85.2 fL (80.0-100.0); Monocytes # (auto) 0.4 10 ^3/uL (0-1.3); Monocytes % (auto) 9.9 % (0.0-12.0); Neutrophils # (auto) 2.5 10 ^3/uL (1.6-8.6); Nucleated Red Blood Cells % 0.2 %; Red Blood Cells 4.61 10^6/uL (4.0-5.20); Red Cell Distribution Width 14.8 % (11.8-14.3); White Blood Cell 4.2 10^3/uL (4.4-10.8)
[2023-07-17] MEDS: metroNIDAZOLE 500 MG TAB PO SCH ×2 (05:25→14:00)
[2023-07-17] MEDS: DICYCLOMINE HCL 10 MG CAP PO SCH ×4 (05:25→21:30)
[2023-07-17 05:26] LABS: Anion Gap 8 (5-15); Carbon Dioxide 26 mmol/L (20-30); Chloride 106 mmol/L (98-107); Potassium 4.2 mmol/L (3.5-5.1); Sodium 140 mmol/L (136-145)
[2023-07-17] MEDS: SODIUM CHLOR 0.9% PF (SALINE LOCK) 10ML VIAL/SYR IV SCH ×3 (05:26→21:29)
[2023-07-17] MEDS: ACCU-CHEK COMFORT CURVE STRIP VI SCH ×4 (05:26→21:30)
[2023-07-17 05:28] LABS: Calcium 8.6 mg/dL (8.7-10.4)
[2023-07-17] MEDS: InsuLIN REG 1unit/0.01ml Soln (100units/ml) SC SCH ×4 (05:32→21:46)
[2023-07-17 05:33] LABS: BUN/Creatinine Ratio 6.8 (10.0-20.0); Blood Urea Nitrogen < 5 mg/dL (9-23); Glucose 151 mg/dL (74-106)
[2023-07-17] MEDS ORDERED: GOLYTELY 4L KIT PO ONE (06:00)
[2023-07-17] MEDS ORDERED: MAGNESIUM CITRATE SOLUTION 300 ML BTL PO ONE (06:00)
[2023-07-17] MEDS: PANCREATIC ENZYMES 4200 UNIT CAP PO SCH ×3 (08:15→18:28)
[2023-07-17] MEDS: FAMOTIDINE (10MG/ML) 2ML VL IV SCH ×2 (10:00→21:29)
[2023-07-17] MEDS: CIPROFLOXACIN HYDROCHLORIDE 250 MG TAB PO SCH (10:00)
[2023-07-17] MEDS: METOPROLOL SUCCINATE XL 50 MG TAB PO SCH (10:00)
[2023-07-17] MEDS: FLUoxetine HCL 20 MG CAP PO SCH (10:00)
[2023-07-17] MEDS: AMITRIPTYLINE HCL 10 MG TAB PO SCH (10:00)
[2023-07-17] MEDS ORDERED: MIDAZOLAM HCL 2MG/2ML 2ml VIAL (1mg/ml) ONE (12:41)
[2023-07-17] MEDS ORDERED: KETAMINE 50mg/ML 1ml syringe ONE (12:41)
[2023-07-17] MEDS ORDERED: PROPOFOL 10 MG/ML 20 ML IV ONE ×2 (12:42→13:51)
[2023-07-17] MEDS ORDERED: GLYCOPYRROLATE 0.2 MG/ML 1ML VIAL ONE (12:42)
[2023-07-17] MEDS ORDERED: ONDANSETRON HCL 4 MG/2 ML VIAL ONE (12:42)
[2023-07-17] MEDS ORDERED: fentaNYL CITRATE 100 MCG/2 ML VL ONE (12:43)
[2023-07-17] MEDS ORDERED: HYDROmorphone HCL 2 MG/ML VL/or syr IV PRN (14:15)
[2023-07-17] MEDS ORDERED: METOCLOPRAMIDE HCL 5MG/ml INJ 2ml VIAL IV PRN (14:15)
[2023-07-17] MEDS ORDERED: PROMETHAZINE HCL 25 MG/ML 1ML IM ONE (14:15)
[2023-07-17] MEDS ORDERED: ACCU-CHEK COMFORT CURVE STRIP VI ONE (14:15)
[2023-07-17] MEDS: MECLIZINE HCL 25 MG TAB PO PRN (17:33)
[2023-07-17] MEDS: ATORVASTATIN 20 MG TAB PO SCH (21:30)
[2023-07-17] MEDS: MESALAMINE 400mg Delayed Release Cap PO SCH (21:30)
[2023-07-18] MEDS: OXYCODONE W/ ACETAMINOPHEN 5/325MG TABLET PO PRN ×2 (03:19→09:42)
[2023-07-18 05:00] VITALS: BP 115/55; PULSE 74; RESP 20; TEMP 97.6; O2SAT 94
[2023-07-18] MEDS: MESALAMINE 400mg Delayed Release Cap PO SCH (05:46)
[2023-07-18] MEDS: SODIUM CHLOR 0.9% PF (SALINE LOCK) 10ML VIAL/SYR IV SCH (05:47)
[2023-07-18] MEDS: DICYCLOMINE HCL 10 MG CAP PO SCH ×2 (05:47→11:33)
[2023-07-18] MEDS: ACCU-CHEK COMFORT CURVE STRIP VI SCH ×2 (06:01→11:38)
[2023-07-18] MEDS: InsuLIN REG 1unit/0.01ml Soln (100units/ml) SC SCH ×2 (06:04→11:38)
[2023-07-18 06:40] LABS: Basophils # (auto) 0 10 ^3/uL (0-0.2); Basophils % (auto) 0.7 % (0.0-2.0); Eosinophils # (auto) 0.1 10 ^3/uL (0-0.8); Eosinophils % (auto) 2.6 % (0.0-7.0); Hematocrit 37.9 % (36.0-46.0); Hemoglobin 12.6 g/dL (12.2-16.2); Lymphocytes # (auto) 1.2 10 ^3/uL (0.4-5.4); Lymphocytes % (auto) 24.4 % (10.0-50.0); Mean Corpuscular Hemoglobin 28.5 pg (28.0-32.0); Mean Corpuscular Hgb Conc. 33.2 g/dL (32.0-36.0); Mean Corpuscular Volume 85.8 fL (80.0-100.0); Monocytes # (auto) 0.4 10 ^3/uL (0-1.3); Monocytes % (auto) 8.3 % (0.0-12.0); Neutrophils # (auto) 3.1 10 ^3/uL (1.6-8.6); Nucleated Red Blood Cells % 0.2 %; Red Blood Cells 4.42 10^6/uL (4.0-5.20); Red Cell Distribution Width 14.9 % (11.8-14.3); White Blood Cell 4.8 10^3/uL (4.4-10.8)
[2023-07-18 06:46] LABS: Chloride 109 mmol/L (98-107); Potassium 3.8 mmol/L (3.5-5.1); Sodium 138 mmol/L (136-145)
[2023-07-18 06:47] LABS: Anion Gap 6 (5-15); Calcium 8.7 mg/dL (8.5-10.1); Carbon Dioxide 23 mmol/L (20-30)
[2023-07-18 06:52] LABS: Glucose 187 mg/dL (74-106)
[2023-07-18 06:53] LABS: BUN/Creatinine Ratio 6.3 (10.0-20.0); Blood Urea Nitrogen < 5 mg/dL (9-23)
[2023-07-18 08:00] VITALS: PULSE 62; RESP 18; O2SAT 93
[2023-07-18 09:00] VITALS: BP 96/53; PULSE 62; RESP 18; TEMP 97.3; O2SAT 93
[2023-07-18] MEDS: PANCREATIC ENZYMES 4200 UNIT CAP PO SCH ×2 (09:40→11:34)
[2023-07-18] MEDS: FAMOTIDINE (10MG/ML) 2ML VL IV SCH (09:40)
[2023-07-18] MEDS: FLUoxetine HCL 20 MG CAP PO SCH (09:41)
[2023-07-18] MEDS: MECLIZINE HCL 25 MG TAB PO PRN (09:41)
[2023-07-18] MEDS: AMITRIPTYLINE HCL 10 MG TAB PO SCH (09:41)
[2023-07-18] MEDS: METOPROLOL SUCCINATE XL 50 MG TAB PO SCH (10:00)
[2023-07-18] MEDS ORDERED: predniSONE 20 MG TAB PO SCH (10:00)
[2023-07-18] MEDS ORDERED: PRED20TA2 PO (10:18)
[2023-07-18] MEDS ORDERED: MESA400C PO (10:18)
[2023-07-18 11:13] VITALS: BP 93/56; PULSE 62; TEMP 97.3
[2023-08-01] MEDS ORDERED: LORazepam 2MG/ML-1ML VIAL IV PRN (07:00)
[2023-08-02] MEDS ORDERED: NITR-52 PO (12:17)
[2023-08-02] MEDS ORDERED: HYD25TP PR (12:17)
== END 2023-07-18 12:45 | disposition home or self-care (01) | DRG 438 ==
LOC: EDBD 01:17 → ER 01:17 → TELE 11:46 → TELE-WESTW 18:51 → WEST WING 07-17 14:51
PROVIDERS: ADMIT Nurse Practitioner Family; ATTEND Internal Medicine Pulmonary Disease
PROC: 5A09357 Assistance with Respiratory Ventilation, Less than 24 Consecutive Hours, Continuous Positive Airway Pressure (ICD-10-PCS; 2023-07-11)
PROC: 5A09357 Assistance with Respiratory Ventilation, Less than 24 Consecutive Hours, Continuous Positive Airway Pressure (ICD-10-PCS; 2023-07-12)
PROC: 0DBN8ZX Excision of Sigmoid Colon, Via Natural or Artificial Opening Endoscopic, Diagnostic (ICD-10-PCS; 2023-07-17)
PROC: 0DBP8ZX Excision of Rectum, Via Natural or Artificial Opening Endoscopic, Diagnostic (ICD-10-PCS; 2023-07-17)
PROC: 0DB98ZX Excision of Duodenum, Via Natural or Artificial Opening Endoscopic, Diagnostic (ICD-10-PCS; principal; 2023-07-17 13:30)
PROC: 0DB68ZX Excision of Stomach, Via Natural or Artificial Opening Endoscopic, Diagnostic (ICD-10-PCS; 2023-07-17 13:30)
DX: K86.89 Other specified diseases of pancreas (principal); I21.A1 Myocardial infarction type 2; J96.01 Acute respiratory failure with hypoxia; N30.00 Acute cystitis without hematuria; F11.20 Opioid dependence, uncomplicated; Z68.42 Body mass index [BMI] 45.0-49.9, adult; K29.70 Gastritis, unspecified, without bleeding; K63.89 Other specified diseases of intestine; K57.90 Diverticulosis of intestine, part unspecified, without perforation or abscess without bleeding; K62.89 Other specified diseases of anus and rectum; D69.6 Thrombocytopenia, unspecified; I11.0 Hypertensive heart disease with heart failure; I50.9 Heart failure, unspecified; G47.33 Obstructive sleep apnea (adult) (pediatric); K52.9 Noninfective gastroenteritis and colitis, unspecified; E66.01 Morbid (severe) obesity due to excess calories; G89.29 Other chronic pain; F41.9 Anxiety disorder, unspecified; E11.649 Type 2 diabetes mellitus with hypoglycemia without coma; K44.9 Diaphragmatic hernia without obstruction or gangrene; F20.9 Schizophrenia, unspecified; F13.10 Sedative, hypnotic or anxiolytic abuse, uncomplicated; I70.0 Atherosclerosis of aorta; F32.A Depression, unspecified; Z86.73 Personal history of transient ischemic attack (TIA), and cerebral infarction without residual deficits; Z79.899 Other long term (current) drug therapy; Z79.84 Long term (current) use of oral hypoglycemic drugs; Z82.49 Family history of ischemic heart disease and other diseases of the circulatory system; Z83.3 Family history of diabetes mellitus; Z80.0 Family history of malignant neoplasm of digestive organs; I25.2 Old myocardial infarction; Z79.4 Long term (current) use of insulin; Z90.49 Acquired absence of other specified parts of digestive tract
CPT/HCPCS: 36415; 43239; 45380; 71045; 74022; 74176; 80048; 80053; 80061; 80307; 80320; 81001; 82150; 82962; 83690; 83735; 83880; 84100; 84484; 85025; 85379; 85384; 85610; 85730; 86850; 86900; 86901; 87045; 87086; 87177; 87427; 87493; 93005; 93306; 93970; 94640; 96372; 99291; C9113; G0378; J0696; J1815; J1885; J2250; J2405; J2704; J3490; Q0162

== ENCOUNTER 2023-07-25 18:31 | Emergency (ER) | payer MEDICARE, BC ==
[~2023-07-25] VITALS: Ht 162.6 cm; Wt 130.0 kg
[~2023-07-25 18:31] MED LIST changes: +ALPR0.254 PO; +DIPH2.5T73 PO; +FURO20TA3 PO; +INSU1INJ19 SC; +MECL1TAB32 PO; +MESA400C PO; -METF-370 PO; -METF-929 PO; +MODA100T52 PO; -NITR-87 PO; +ONDA-155 PO; +PRED20TA2 PO; -SODI500S PO; +ZOLP10TA6 PO
[2023-07-25 19:48] LABS: Basophils # (auto) 0 10 ^3/uL (0-0.2); Basophils % (auto) 0.6 % (0.0-2.0); Eosinophils # (auto) 0.2 10 ^3/uL (0-0.8); Eosinophils % (auto) 2.6 % (0.0-7.0); Hematocrit 42.1 % (36.0-46.0); Hemoglobin 13.8 g/dL (12.2-16.2); Lymphocytes # (auto) 2.1 10 ^3/uL (0.4-5.4); Lymphocytes % (auto) 27.1 % (10.0-50.0); Mean Corpuscular Hemoglobin 28.1 pg (28.0-32.0); Mean Corpuscular Hgb Conc. 32.8 g/dL (32.0-36.0); Mean Corpuscular Volume 85.8 fL (80.0-100.0); Monocytes # (auto) 0.6 10 ^3/uL (0-1.3); Monocytes % (auto) 8.2 % (0.0-12.0); Neutrophils # (auto) 4.7 10 ^3/uL (1.6-8.6); Neutrophils % (auto) 61.5 % (37.0-80.0); Nucleated Red Blood Cells % 0.1 %; Red Blood Cells 4.91 10^6/uL (4.0-5.20); Red Cell Distribution Width 15.1 % (11.8-14.3); White Blood Cell 7.7 10^3/uL (4.4-10.8)
[2023-07-25 20:00] VITALS: PULSE 90; RESP 27; TEMP 97.9; O2SAT 93
[2023-07-25] MEDS: ASPirin 81 mg TAB PO ONE (20:08)
[2023-07-25 21:54] LABS: Urine Bacteria NONE SEEN /hpf (None Seen); Urine Blood Negative /uL (Negative); Urine Clarity Clear (Clear); Urine Color Yellow (Yellow); Urine Mucus FEW (None Seen); Urine Protein, UAD TRACE (Negative); Urine Specific Gravity 1.027 (1.001-1.035); Urine Urobilinogen Normal (Negative); Urine WBC 20 /hpf (0 - 5); Urine pH 6.5 (5.0-8.0)
[2023-07-25] MEDS: ONDANSETRON ODT 4 MG TAB PO ONE (21:55)
[2023-07-25] MEDS: LIDOCAINE VISCOUS 2% 15ML UD PO ONE (21:56)
[2023-07-25] MEDS: MAALOX PLUS or MAALOX 30 ML PO ONE (21:56)
[2023-07-25] MEDS: HYDROcodone-ACET 5/325MG TAB PO ONE (22:43)
[2023-07-25 23:23] VITALS: BP 114/54; PULSE 81; RESP 21; O2SAT 93
== END 2023-07-25 23:35 | disposition hospice, home (50) ==
LOC: ER 18:31 → EDBD 18:31 → ER 23:35
DX: R07.89 Other chest pain (principal); I10 Essential (primary) hypertension; E11.9 Type 2 diabetes mellitus without complications; Z90.49 Acquired absence of other specified parts of digestive tract; Z86.73 Personal history of transient ischemic attack (TIA), and cerebral infarction without residual deficits; Z79.4 Long term (current) use of insulin; Z79.899 Other long term (current) drug therapy; Z88.2 Allergy status to sulfonamides; Z88.8 Allergy status to other drugs, medicaments and biological substances
CPT/HCPCS: 36415; 71045; 81001; 83735; 83880; 84484; 85025; 85379; 93005; 99285; Q0162

== ENCOUNTER 2023-08-01 13:27 | Inpatient (IN) | payer MEDICARE, BC ==
[~2023-08-01] VITALS: Ht 162.6 cm; Wt 125.0 kg
[2023-08-01 14:13] LABS: Basophils # (auto) 0.1 10 ^3/uL (0-0.2); Basophils % (auto) 0.6 % (0.0-2.0); Eosinophils # (auto) 0.1 10 ^3/uL (0-0.8); Eosinophils % (auto) 1.4 % (0.0-7.0); Hematocrit 43.2 % (36.0-46.0); Hemoglobin 14.4 g/dL (12.2-16.2); Lymphocytes # (auto) 1.3 10 ^3/uL (0.4-5.4); Lymphocytes % (auto) 15.6 % (10.0-50.0); Mean Corpuscular Hemoglobin 28.8 pg (28.0-32.0); Mean Corpuscular Hgb Conc. 33.3 g/dL (32.0-36.0); Mean Corpuscular Volume 86.5 fL (80.0-100.0); Monocytes # (auto) 0.5 10 ^3/uL (0-1.3); Monocytes % (auto) 6.1 % (0.0-12.0); Neutrophils # (auto) 6.5 10 ^3/uL (1.6-8.6); Neutrophils % (auto) 76.3 % (37.0-80.0); Nucleated Red Blood Cells % 0.1 %; Red Blood Cells 4.99 10^6/uL (4.0-5.20); Red Cell Distribution Width 14.9 % (11.8-14.3); White Blood Cell 8.5 10^3/uL (4.4-10.8)
[2023-08-01 14:22] LABS: Chloride 103 mmol/L (98-107); Potassium 4.3 mmol/L (3.5-5.1); Sodium 136 mmol/L (136-145)
[2023-08-01 14:23] LABS: Anion Gap 9 (5-15); Carbon Dioxide 24 mmol/L (20-30)
[2023-08-01 14:24] LABS: Calcium 9.2 mg/dL (8.5-10.1)
[2023-08-01 14:28] LABS: Glucose 346 mg/dL (74-106)
[2023-08-01 14:29] LABS: BUN/Creatinine Ratio 10.1 (10.0-20.0); Blood Urea Nitrogen 8 mg/dL (9-23)
[2023-08-01] MEDS: InsuLIN REG 1unit/0.01ml Soln (100units/ml) IV ONE (14:45)
[2023-08-01 15:12] LABS: Urine Bacteria NONE SEEN /hpf (None Seen); Urine Blood Negative /uL (Negative); Urine Clarity HAZY (Clear); Urine Color Yellow (Yellow); Urine Mucus FEW (None Seen); Urine Protein, UAD TRACE (Negative); Urine Specific Gravity 1.029 (1.001-1.035); Urine Urobilinogen Normal (Negative); Urine WBC 108 /hpf (0 - 5); Urine pH 7.5 (5.0-8.0)
[2023-08-01] MEDS ORDERED: DEXTROSE (50%) 50ML SYRG IV PRN (15:45)
[2023-08-01] MEDS ORDERED: ACETAMINOPHEN 325 MG TAB PO PRN (15:45)
[2023-08-01] MEDS: SODIUM CHLORIDE 0.9% 1,000 ML IV SCH (15:45)
[2023-08-01] MEDS ORDERED: ALPRAZolam 0.25 MG TAB PO PRN (16:00)
[2023-08-01 16:09] LABS: Triglycerides 252 mg/dL (< 150)
[2023-08-01 16:10] LABS: LDL Cholesterol 67 mg/dL (< 100)
[2023-08-01 16:11] LABS: Cholesterol 131 mg/dL (< 200); HDL Cholesterol 43 mg/dL (40-59)
[2023-08-01] MEDS ORDERED: ZOLPIDEM TARTRATE 5 MG TAB PO PRN (16:15)
[2023-08-01] MEDS: InsuLIN REG 1unit/0.01ml Soln (100units/ml) SC SCH (17:00)
[2023-08-01] MEDS: ACCU-CHEK COMFORT CURVE STRIP VI SCH (17:00)
[2023-08-01] MEDS: MECLIZINE HCL 25 MG TAB PO PRN (17:13)
[2023-08-01 17:15] VITALS: PULSE 102; RESP 20; O2SAT 96
[2023-08-01] MEDS: SODIUM CHLORIDE 0.9% 1,000 ML IV ONE ×3 (17:31)
[2023-08-01] MEDS: METOCLOPRAMIDE HCL 10 MG TAB PO ONE (17:32)
[2023-08-01] MEDS: FUROSEMIDE 40 MG/4 ML VIAL IV ONE (17:45)
[2023-08-01] MEDS: cefTRIAXone 1GM/50ML D5W 50 ML IV ONE (17:45)
[2023-08-01] MEDS: MORPHINE SULFATE INJ 2 MG/ml SYRG IV ONE (18:10)
[2023-08-01] MEDS: ONDANSETRON HCL 4 MG/2 ML VIAL IV PRN (19:35)
[2023-08-01 20:00] VITALS: PULSE 98; RESP 21; O2SAT 93
[2023-08-01] MEDS: PANTOPRAZOLE 40 MG TAB PO SCH (21:43)
[2023-08-01] MEDS: ZOLPIDEM TARTRATE 5 MG TAB PO SCH (21:44)
[2023-08-01] MEDS: DICYCLOMINE HCL 10 MG CAP PO SCH (21:44)
[2023-08-01] MEDS: DIPHENOXYLATE W/ATROPINE 2.5 MG TAB PO SCH (21:45)
[2023-08-01] MEDS: METOCLOPRAMIDE HCL 10 MG TAB PO SCH (21:59)
[2023-08-01] MEDS: HYDROcodone-ACET 5/325MG TAB PO PRN (21:59)
[2023-08-01] MEDS ORDERED: PATIENTS OWN MEDICATION (Zolpidem Tartrate 1 TAB) PO SCH (22:00)
[2023-08-01] MEDS: MESALAMINE 400mg Delayed Release Cap PO SCH (23:26)
[2023-08-02] MEDS: IOHEXOL 350 MG/ML 100ML IJ ONE ×2 (03:33→05:11)
[2023-08-02 04:26] VITALS: BP 106/58; PULSE 99; RESP 18; TEMP 97.6
[2023-08-02 05:00] VITALS: BP 106/58; PULSE 77; RESP 18; TEMP 97.6; O2SAT 91
[2023-08-02] MEDS: MODAFINIL 100 MG PO SCH (06:03)
[2023-08-02 06:49] LABS: Alanine Aminotransferase 26 U/L (7-40); Alkaline Phosphatase 72 U/L (46-116); Anion Gap 8 (5-15); Aspartate Aminotransferase 38 U/L (13-40); BUN/Creatinine Ratio 9.9 (10.0-20.0); Bilirubin, Total 0.4 mg/dL (0.2-1.0); Blood Urea Nitrogen 7 mg/dL (9-23); Calcium 9.9 mg/dL (8.7-10.4); Carbon Dioxide 26 mmol/L (20-30); Chloride 100 mmol/L (98-107); Glucose 170 mg/dL (74-106); Potassium 4.4 mmol/L (3.5-5.1); Sodium 134 mmol/L (136-145); Total Protein 6.6 g/dL (5.7-8.2)
[2023-08-02 08:00] VITALS: PULSE 100; RESP 16; O2SAT 96
[2023-08-02 09:00] VITALS: BP 133/81; PULSE 101; RESP 18; TEMP 98.1; O2SAT 97
[2023-08-02] MEDS: cefTRIAXone 1GM/50ML D5W 50 ML IV SCH (09:02)
[2023-08-02] MEDS: ENOXAPARIN SOD 40 MG/0.4 ML SYRINGE SC SCH (09:03)
[2023-08-02] MEDS: FUROSEMIDE 20 MG TAB PO SCH (09:03)
[2023-08-02] MEDS: AMITRIPTYLINE HCL 10 MG TAB PO SCH (09:03)
[2023-08-02] MEDS: FLUoxetine HCL 20 MG CAP PO SCH (09:03)
[2023-08-02] MEDS: LISINOPRIL 10 MG TAB PO SCH (09:04)
[2023-08-02 10:05] LABS: Basophils # (auto) 0.1 10 ^3/uL (0-0.2); Basophils % (auto) 0.7 % (0.0-2.0); Eosinophils # (auto) 0.2 10 ^3/uL (0-0.8); Eosinophils % (auto) 2.1 % (0.0-7.0); Hematocrit 38.6 % (36.0-46.0); Hemoglobin 12.7 g/dL (12.2-16.2); Lymphocytes # (auto) 1.8 10 ^3/uL (0.4-5.4); Lymphocytes % (auto) 23.9 % (10.0-50.0); Mean Corpuscular Hemoglobin 28.3 pg (28.0-32.0); Mean Corpuscular Volume 85.9 fL (80.0-100.0); Monocytes # (auto) 0.5 10 ^3/uL (0-1.3); Monocytes % (auto) 6.8 % (0.0-12.0); Neutrophils # (auto) 4.9 10 ^3/uL (1.6-8.6); Neutrophils % (auto) 66.5 % (37.0-80.0); Red Cell Distribution Width 14.4 % (11.8-14.3); White Blood Cell 7.3 10^3/uL (4.4-10.8)
[2023-08-02] MEDS ORDERED: NITR-52 PO ×2 (12:17)
[2023-08-02] MEDS ORDERED: HYD25TP PR ×2 (12:17)
[2023-08-02 12:32] VITALS: BP 133/81; TEMP 36.7
[2023-08-02 13:00] VITALS: BP 106/60; PULSE 99; RESP 18; TEMP 97.5; O2SAT 91
== END 2023-08-02 14:20 | disposition home or self-care (01) | DRG 638 ==
LOC: ER 13:27 → OVERFLOW 15:48 → WEST WING 15:48
PROVIDERS: ADMIT Internal Medicine Pulmonary Disease; ATTEND Internal Medicine Pulmonary Disease
DX: E11.65 Type 2 diabetes mellitus with hyperglycemia (principal); N39.0 Urinary tract infection, site not specified; Z68.42 Body mass index [BMI] 45.0-49.9, adult; F41.9 Anxiety disorder, unspecified; I10 Essential (primary) hypertension; L30.9 Dermatitis, unspecified; K44.9 Diaphragmatic hernia without obstruction or gangrene; E66.01 Morbid (severe) obesity due to excess calories; Z88.2 Allergy status to sulfonamides; Z79.4 Long term (current) use of insulin; Z83.3 Family history of diabetes mellitus; Z86.73 Personal history of transient ischemic attack (TIA), and cerebral infarction without residual deficits; Z90.49 Acquired absence of other specified parts of digestive tract; Z80.9 Family history of malignant neoplasm, unspecified
CPT/HCPCS: 36415; 71045; 71275; 80048; 80053; 80061; 81001; 82962; 83036; 83880; 84443; 85025; 85379; 87081; 87086; 87088; 87186; G0378; J1815; J2405

== ENCOUNTER → 2023-08-09 | Emergency (ER) | payer MEDICARE, BC ==
[~2023-08-09] VITALS: Ht 162.6 cm; Wt 55.0 kg
[~2023-08-09] MED LIST changes: -CEPH250C PO; +HYD25TP PR; -MECL1TAB32 PO; -METO-281 PO; -MODA100T52 PO; -PRED20TA2 PO
[2023-08-09 01:58] LABS: Basophils # (auto) 0 10 ^3/uL (0-0.2); Basophils % (auto) 0.7 % (0.0-2.0); Eosinophils # (auto) 0.1 10 ^3/uL (0-0.8); Eosinophils % (auto) 1.8 % (0.0-7.0); Hematocrit 42.1 % (36.0-46.0); Hemoglobin 13.9 g/dL (12.2-16.2); Lymphocytes # (auto) 1.7 10 ^3/uL (0.4-5.4); Lymphocytes % (auto) 24.4 % (10.0-50.0); Mean Corpuscular Hgb Conc. 33.1 g/dL (32.0-36.0); Mean Corpuscular Volume 84.6 fL (80.0-100.0); Monocytes # (auto) 0.5 10 ^3/uL (0-1.3); Monocytes % (auto) 7.8 % (0.0-12.0); Neutrophils # (auto) 4.4 10 ^3/uL (1.6-8.6); Neutrophils % (auto) 65.3 % (37.0-80.0); Nucleated Red Blood Cells % 0.1 %; Red Blood Cells 4.98 10^6/uL (4.0-5.20); Red Cell Distribution Width 14.8 % (11.8-14.3); White Blood Cell 6.8 10^3/uL (4.4-10.8)
[2023-08-09 02:08] LABS: Chloride 104 mmol/L (98-107); Potassium 4.4 mmol/L (3.5-5.1); Sodium 135 mmol/L (136-145)
[2023-08-09 02:09] LABS: Anion Gap 6 (5-15); Calcium 8.7 mg/dL (8.7-10.4); Carbon Dioxide 25 mmol/L (20-30)
[2023-08-09 02:14] LABS: BUN/Creatinine Ratio 13.9 (10.0-20.0); Blood Urea Nitrogen 10 mg/dL (9-23); Glucose 337 mg/dL (74-106)
[2023-08-09] MEDS: ONDANSETRON ODT 4 MG TAB PO ONE (03:50)
[2023-08-09 03:54] VITALS: TEMP 97.7; O2SAT 95
[2023-08-09 03:55] VITALS: BP 136/74
[2023-08-09 03:56] VITALS: PULSE 96; RESP 18
== END | disposition home or self-care (01) ==
LOC: EDUNIT# 00:43 → ER 00:44 → EDBD 00:44 → EDSEX 00:44
DX: R53.1 Weakness (principal); E11.65 Type 2 diabetes mellitus with hyperglycemia; I10 Essential (primary) hypertension; Z98.51 Tubal ligation status; Z90.49 Acquired absence of other specified parts of digestive tract; Z86.73 Personal history of transient ischemic attack (TIA), and cerebral infarction without residual deficits; Z88.2 Allergy status to sulfonamides
CPT/HCPCS: 36415; 80048; 85025; 99283; Q0162

== ENCOUNTER 2023-08-30 06:31 | Inpatient (IN) | payer MEDICARE, BC ==
[~2023-08-30] VITALS: Ht 167.6 cm; Wt 130.2 kg
[2023-08-30 07:13] LABS: Basophils # (auto) 0 10 ^3/uL (0-0.2); Basophils % (auto) 0.6 % (0.0-2.0); Eosinophils # (auto) 0.1 10 ^3/uL (0-0.8); Eosinophils % (auto) 1.3 % (0.0-7.0); Hematocrit 39.8 % (36.0-46.0); Hemoglobin 13.2 g/dL (12.2-16.2); Lymphocytes # (auto) 1.3 10 ^3/uL (0.4-5.4); Lymphocytes % (auto) 24.7 % (10.0-50.0); Mean Corpuscular Hemoglobin 28.2 pg (28.0-32.0); Mean Corpuscular Hgb Conc. 33.1 g/dL (32.0-36.0); Monocytes # (auto) 0.4 10 ^3/uL (0-1.3); Neutrophils # (auto) 3.4 10 ^3/uL (1.6-8.6); Neutrophils % (auto) 66.4 % (37.0-80.0); Red Blood Cells 4.68 10^6/uL (4.0-5.20); Red Cell Distribution Width 14.9 % (11.8-14.3); White Blood Cell 5.2 10^3/uL (4.4-10.8)
[2023-08-30 07:21] LABS: Chloride 105 mmol/L (98-107); Potassium 4.5 mmol/L (3.5-5.1); Sodium 138 mmol/L (136-145)
[2023-08-30 07:22] LABS: Anion Gap 7 (5-15); Carbon Dioxide 26 mmol/L (20-30)
[2023-08-30 07:27] LABS: BUN/Creatinine Ratio 16.9 (10.0-20.0); Blood Urea Nitrogen 11 mg/dL (9-23); Glucose 372 mg/dL (74-106)
[2023-08-30 07:28] LABS: Magnesium 1.4 mg/dL (1.6-2.6)
[2023-08-30 07:40] VITALS: PULSE 94; RESP 20; O2SAT 93
[2023-08-30] MEDS: ONDANSETRON HCL 4 MG/2 ML VIAL IV ONE (08:37)
[2023-08-30] MEDS: MORPHINE SULFATE 4 MG/ML SYR/VIAL IV ONE (08:38)
[2023-08-30 09:18] LABS: Urine Bacteria FEW /hpf (None Seen); Urine Blood Negative /uL (Negative); Urine Clarity Clear (Clear); Urine Color Yellow (Yellow); Urine Protein, UAD Negative (Negative); Urine Specific Gravity 1.037 (1.001-1.035); Urine Urobilinogen Normal (Negative); Urine WBC 5 /hpf (0 - 5); Urine pH 5.5 (5.0-8.0)
[2023-08-30] MEDS ORDERED: ACETAMINOPHEN 325 MG TAB PO PRN (09:30)
[2023-08-30] MEDS ORDERED: DEXTROSE (50%) 50ML SYRG IV PRN (09:30)
[2023-08-30 09:42] LABS: Triglycerides 206 mg/dL (< 150)
[2023-08-30 09:43] LABS: LDL Cholesterol 76 mg/dL (< 100)
[2023-08-30 09:44] LABS: HDL Cholesterol 41 mg/dL (40-59)
[2023-08-30 09:45] LABS: Cholesterol 128 mg/dL (< 200)
[2023-08-30] MEDS ORDERED: PATIENTS OWN MEDICATION (Lisinopril 10 MG) PO SCH (10:00)
[2023-08-30] MEDS: FUROSEMIDE 20 MG TAB PO SCH (10:23)
[2023-08-30] MEDS: PANTOPRAZOLE 40 MG TAB PO SCH (10:24)
[2023-08-30] MEDS: ENOXAPARIN SOD 40 MG/0.4 ML SYRINGE SC SCH (10:24)
[2023-08-30] MEDS: FLUoxetine HCL 20 MG CAP PO SCH (10:24)
[2023-08-30] MEDS: LISINOPRIL 5 MG TAB PO SCH (10:24)
[2023-08-30] MEDS: SODIUM CHLORIDE 0.9% 1,000 ML IV SCH (10:25)
[2023-08-30] MEDS: AMITRIPTYLINE HCL 10 MG TAB PO SCH (10:45)
[2023-08-30] MEDS: MAGNESIUM SULFATE 1GM/100ML 100 ML IV SCH (10:49)
[2023-08-30] MEDS: ACCU-CHEK COMFORT CURVE STRIP VI SCH (11:28)
[2023-08-30] MEDS: InsuLIN REG 1unit/0.01ml Soln (100units/ml) SC SCH ×2 (11:28→21:31)
[2023-08-30 12:30] VITALS: BP 139/78; PULSE 98; RESP 18; TEMP 98.1; O2SAT 97
[2023-08-30 14:06] VITALS: PULSE 76; RESP 18; O2SAT 96
[2023-08-30] MEDS: DIPHENOXYLATE W/ATROPINE 2.5 MG TAB PO SCH (14:23)
[2023-08-30] MEDS: DICYCLOMINE HCL 10 MG CAP PO SCH (14:23)
[2023-08-30] MEDS: HYDROCORTISONE 2.5% TOPICAL CREAM 30GM TUBE PR SCH (14:24)
[2023-08-30] MEDS: MESALAMINE 400mg Delayed Release Cap PO SCH ×2 (14:24→21:13)
[2023-08-30] MEDS: ALPRAZolam 0.25 MG TAB PO PRN (15:21)
[2023-08-30 17:00] VITALS: BP 133/66; PULSE 76; RESP 18; TEMP 98; O2SAT 95
[2023-08-30 20:00] VITALS: RESP 18
[2023-08-30 22:00] VITALS: BP 112/52; PULSE 90; RESP 23; TEMP 97.9; O2SAT 95
[2023-08-30] MEDS ORDERED: PATIENTS OWN MEDICATION (Zolpidem Tartrate 1 TAB) PO SCH (22:00)
[2023-08-31] MEDS: ZOLPIDEM TARTRATE 5 MG TAB PO PRN (00:44)
[2023-08-31 08:00] VITALS: PULSE 78; RESP 16; O2SAT 93
[2023-08-31 09:00] VITALS: BP 116/61; PULSE 78; RESP 16; TEMP 98.4; O2SAT 93
[2023-08-31] MEDS: KETOROLAC TROMETH 30 MG/ML 1ML VIAL IV PRN (11:13)
[2023-08-31 13:00] VITALS: BP 112/67; PULSE 94; RESP 18; TEMP 98; O2SAT 97
[2023-08-31 17:00] VITALS: BP 104/46; PULSE 82; RESP 16; TEMP 98.2; O2SAT 97
[2023-08-31 22:17] VITALS: BP 126/54; PULSE 88; RESP 18; TEMP 98.1; O2SAT 94
[2023-09-01 07:19] LABS: Alanine Aminotransferase 18 U/L (7-40); Albumin 3.5 g/dL (3.2-4.8); Alkaline Phosphatase 64 U/L (46-116); Anion Gap 2 (5-15); Aspartate Aminotransferase 13 U/L (13-40); Bilirubin, Total 0.4 mg/dL (0.2-1.0); Blood Urea Nitrogen 15 mg/dL (9-23); Calcium 8.9 mg/dL (8.5-10.1); Carbon Dioxide 29 mmol/L (20-30); Chloride 103 mmol/L (98-107); Glucose 272 mg/dL (74-106); Potassium 4.2 mmol/L (3.5-5.1); Sodium 134 mmol/L (136-145); Total Protein 5.5 g/dL (5.7-8.2)
[2023-09-01 07:21] LABS: Basophils # (auto) 0 10 ^3/uL (0-0.2); Basophils % (auto) 0.5 % (0.0-2.0); Eosinophils # (auto) 0.1 10 ^3/uL (0-0.8); Eosinophils % (auto) 1.2 % (0.0-7.0); Hematocrit 37.1 % (36.0-46.0); Hemoglobin 12.2 g/dL (12.2-16.2); Lymphocytes # (auto) 1.1 10 ^3/uL (0.4-5.4); Lymphocytes % (auto) 22.2 % (10.0-50.0); Mean Corpuscular Hemoglobin 27.9 pg (28.0-32.0); Mean Corpuscular Volume 84.6 fL (80.0-100.0); Monocytes # (auto) 0.4 10 ^3/uL (0-1.3); Monocytes % (auto) 7.9 % (0.0-12.0); Neutrophils # (auto) 3.4 10 ^3/uL (1.6-8.6); Neutrophils % (auto) 68.2 % (37.0-80.0); Nucleated Red Blood Cells % 0.1 %; Red Blood Cells 4.39 10^6/uL (4.0-5.20); Red Cell Distribution Width 14.5 % (11.8-14.3)
[2023-09-01 09:00] VITALS: BP_SYST 117; BP_SYST 144; BP_DIAS 60; BP_DIAS 90; PULSE 66; PULSE 69; RESP 20; TEMP 97.7; TEMP 97.9; O2SAT 98
[2023-09-01 13:00] VITALS: BP 138/54; PULSE 72; RESP 20; TEMP 97.9; O2SAT 96
[2023-09-01 17:00] VITALS: BP 119/57; PULSE 78; RESP 20; TEMP 97.6; O2SAT 97
[2023-09-01 22:00] VITALS: BP 117/54; PULSE 78; RESP 18; TEMP 98; O2SAT 96
[2023-09-02 05:00] VITALS: BP 105/44; PULSE 105; RESP 44; TEMP 97.9; O2SAT 96
[2023-09-02 07:28] LABS: Basophils # (auto) 0 10 ^3/uL (0-0.2); Basophils % (auto) 0.9 % (0.0-2.0); Eosinophils # (auto) 0.1 10 ^3/uL (0-0.8); Eosinophils % (auto) 1.6 % (0.0-7.0); Hematocrit 37.1 % (36.0-46.0); Hemoglobin 12.2 g/dL (12.2-16.2); Lymphocytes # (auto) 1.2 10 ^3/uL (0.4-5.4); Lymphocytes % (auto) 30.5 % (10.0-50.0); Mean Corpuscular Hemoglobin 27.8 pg (28.0-32.0); Mean Corpuscular Hgb Conc. 32.9 g/dL (32.0-36.0); Mean Corpuscular Volume 84.4 fL (80.0-100.0); Monocytes # (auto) 0.3 10 ^3/uL (0-1.3); Monocytes % (auto) 7.8 % (0.0-12.0); Neutrophils # (auto) 2.4 10 ^3/uL (1.6-8.6); Neutrophils % (auto) 59.2 % (37.0-80.0); Nucleated Red Blood Cells % 0.3 %; Red Blood Cells 4.39 10^6/uL (4.0-5.20); Red Cell Distribution Width 14.4 % (11.8-14.3)
[2023-09-02 07:49] LABS: Alanine Aminotransferase 19 U/L (7-40); Albumin 3.5 g/dL (3.2-4.8); Alkaline Phosphatase 59 U/L (46-116); Anion Gap 5 (5-15); Aspartate Aminotransferase 17 U/L (13-40); BUN/Creatinine Ratio 22.6 (10.0-20.0); Bilirubin, Total 0.4 mg/dL (0.2-1.0); Blood Urea Nitrogen 14 mg/dL (9-23); Calcium 8.8 mg/dL (8.5-10.1); Carbon Dioxide 29 mmol/L (20-30); Chloride 103 mmol/L (98-107); Glucose 217 mg/dL (74-106); Potassium 4.4 mmol/L (3.5-5.1); Sodium 137 mmol/L (136-145); Total Protein 5.5 g/dL (5.7-8.2)
[2023-09-02 08:00] VITALS: PULSE 89; RESP 20; O2SAT 95
[2023-09-02 09:00] VITALS: BP 137/71; PULSE 89; RESP 20; TEMP 98.7; O2SAT 95
[2023-09-02] MEDS: ADENOSINE 126 MG in GIVE UN-DILUTED 0 ML IV STA (09:49)
[2023-09-02] MEDS ORDERED: MECLIZINE HCL 25 MG TAB PO PRN ×2 (11:30→15:00)
[2023-09-02 12:55] VITALS: BP 118/49; PULSE 84; RESP 18; TEMP 98.4; O2SAT 95
[2023-09-02 13:33] LABS: COVID19 ANTIGEN SOFIA FIA NEGATIVE (NEGATIVE)
[2023-09-02] MEDS: MECLIZINE HCL 25 MG TAB PO SCH (15:06)
[2023-09-02 16:53] VITALS: BP 113/58; PULSE 80; RESP 18; TEMP 97.8; O2SAT 9
[2023-09-02 22:00] VITALS: BP 135/60; PULSE 75; RESP 18; TEMP 97.6; O2SAT 96
[2023-09-03 05:00] VITALS: BP 95/40; PULSE 89; RESP 18; TEMP 97.7; O2SAT 93
[2023-09-03 06:42] LABS: Basophils # (auto) 0 10 ^3/uL (0-0.2); Basophils % (auto) 0.5 % (0.0-2.0); Eosinophils # (auto) 0.1 10 ^3/uL (0-0.8); Eosinophils % (auto) 1.6 % (0.0-7.0); Hematocrit 36.1 % (36.0-46.0); Hemoglobin 12.2 g/dL (12.2-16.2); Lymphocytes # (auto) 1.1 10 ^3/uL (0.4-5.4); Lymphocytes % (auto) 33.6 % (10.0-50.0); Mean Corpuscular Hemoglobin 28.6 pg (28.0-32.0); Mean Corpuscular Hgb Conc. 33.8 g/dL (32.0-36.0); Mean Corpuscular Volume 84.7 fL (80.0-100.0); Monocytes # (auto) 0.3 10 ^3/uL (0-1.3); Monocytes % (auto) 8.8 % (0.0-12.0); Neutrophils # (auto) 1.9 10 ^3/uL (1.6-8.6); Neutrophils % (auto) 55.5 % (37.0-80.0); Nucleated Red Blood Cells % 0.1 %; Red Blood Cells 4.26 10^6/uL (4.0-5.20); Red Cell Distribution Width 14.4 % (11.8-14.3); White Blood Cell 3.4 10^3/uL (4.4-10.8)
[2023-09-03 06:52] LABS: Alanine Aminotransferase 22 U/L (7-40); Albumin 3.3 g/dL (3.2-4.8); Alkaline Phosphatase 57 U/L (46-116); Anion Gap 6 (5-15); Aspartate Aminotransferase 21 U/L (13-40); BUN/Creatinine Ratio 18.6 (10.0-20.0); Blood Urea Nitrogen 11 mg/dL (9-23); Calcium 8.5 mg/dL (8.5-10.1); Carbon Dioxide 28 mmol/L (20-30); Chloride 105 mmol/L (98-107); Glucose 186 mg/dL (74-106); Potassium 3.8 mmol/L (3.5-5.1); Sodium 139 mmol/L (136-145)
[2023-09-03 06:53] LABS: Bilirubin, Total 0.4 mg/dL (0.2-1.0); Total Protein 5.3 g/dL (5.7-8.2)
[2023-09-03 08:00] VITALS: PULSE 61; RESP 19; O2SAT 100
[2023-09-03 08:27] VITALS: BP 114/66; PULSE 61; RESP 19; TEMP 98.1; O2SAT 100
[2023-09-03] MEDS: PANTOPRAZOLE 40 MG TAB PO SCH (10:14)
[2023-09-03 12:28] VITALS: BP 141/73; PULSE 69; RESP 18; TEMP 98; O2SAT 94
[2023-09-03 15:15] VITALS: BP 114/66
== END 2023-09-03 15:45 | DRG 313 ==
LOC: ER 06:31 → EDBD 06:31 → OVERFLOW 09:25 → ER 09:51 → EAST 11:36
PROVIDERS: ADMIT Nurse Practitioner Family; ATTEND Family Medicine
DX: R07.9 Chest pain, unspecified (principal); Z68.42 Body mass index [BMI] 45.0-49.9, adult; E11.65 Type 2 diabetes mellitus with hyperglycemia; R42 Dizziness and giddiness; F41.9 Anxiety disorder, unspecified; I10 Essential (primary) hypertension; E83.42 Hypomagnesemia; Z20.822 Contact with and (suspected) exposure to COVID-19; E66.01 Morbid (severe) obesity due to excess calories; T38.3X6A Underdosing of insulin and oral hypoglycemic [antidiabetic] drugs, initial encounter; Z71.3 Dietary counseling and surveillance; Z98.1 Arthrodesis status; Z88.6 Allergy status to analgesic agent; Z88.2 Allergy status to sulfonamides; Z79.4 Long term (current) use of insulin; Z79.82 Long term (current) use of aspirin; Z98.51 Tubal ligation status; Z91.148 Patient's other noncompliance with medication regimen for other reason; Z87.440 Personal history of urinary (tract) infections; Z86.14 Personal history of Methicillin resistant Staphylococcus aureus infection; Z86.73 Personal history of transient ischemic attack (TIA), and cerebral infarction without residual deficits; Z83.3 Family history of diabetes mellitus; Z80.0 Family history of malignant neoplasm of digestive organs; Z81.8 Family history of other mental and behavioral disorders; Z82.49 Family history of ischemic heart disease and other diseases of the circulatory system
CPT/HCPCS: 36415; 71045; 80048; 80053; 80061; 81001; 82962; 83036; 83735; 83880; 84443; 84484; 85025; 85379; 87040; 87081; 87426; 93005; 93017; 96374; 96375; 97110; 97116; 97163; 97530; G0378; J0153; J1815; J1885; J2405

== ENCOUNTER 2024-02-02 08:42 | Inpatient (IN) | payer MEDICARE, BC ==
[~2024-02-02] VITALS: Ht 162.6 cm; Wt 131.0 kg
[~2024-02-02 08:42] MED LIST changes: -ALPR0.254 PO; -AMIT10TA10 PO; -NITR-52 PO
[2024-02-02 09:17] VITALS: RESP 18; O2SAT 99
[2024-02-02 10:36] LABS: Basophils # (auto) 0.1 10 ^3/uL (0-0.2); Basophils % (auto) 0.8 % (0.0-2.0); Eosinophils # (auto) 0.1 10 ^3/uL (0-0.8); Hematocrit 45.1 % (36.0-46.0); Hemoglobin 14.6 g/dL (12.2-16.2); Lymphocytes # (auto) 1.5 10 ^3/uL (0.4-5.4); Lymphocytes % (auto) 18.7 % (10.0-50.0); Mean Corpuscular Hemoglobin 26.6 pg (28.0-32.0); Mean Corpuscular Hgb Conc. 32.3 g/dL (32.0-36.0); Mean Corpuscular Volume 82.6 fL (80.0-100.0); Monocytes # (auto) 0.6 10 ^3/uL (0-1.3); Monocytes % (auto) 6.9 % (0.0-12.0); Neutrophils # (auto) 5.8 10 ^3/uL (1.6-8.6); Neutrophils % (auto) 72.6 % (37.0-80.0); Nucleated Red Blood Cells % 0.3 %; Red Blood Cells 5.47 10^6/uL (4.0-5.20); Red Cell Distribution Width 16.1 % (11.8-14.3)
[2024-02-02 10:40] LABS: Chloride 105 mmol/L (98-107); Potassium 4.5 mmol/L (3.5-5.1); Sodium 136 mmol/L (136-145)
[2024-02-02 10:41] LABS: Anion Gap 6 (5-15); Calcium 9.8 mg/dL (8.7-10.4); Carbon Dioxide 25 mmol/L (20-30)
[2024-02-02 10:46] LABS: Blood Urea Nitrogen 12 mg/dL (9-23); Glucose 186 mg/dL (74-106)
[2024-02-02 10:46] LABS: Urine Bacteria FEW /hpf (None Seen); Urine Blood Negative /uL (Negative); Urine Clarity Hazy (Clear); Urine Color Yellow (Yellow); Urine Mucus FEW (None Seen); Urine Protein, UAD TRACE (Negative); Urine Specific Gravity 1.025 (1.001-1.035); Urine Urobilinogen Normal (Negative); Urine WBC 8 /hpf (0 - 5)
[2024-02-02 10:55] LABS: Anisocytosis Slight; Platelet Estimate Adequate
[2024-02-02] MEDS: SODIUM CHLORIDE 0.9% 1,000 ML IV ONE ×2 (11:34)
[2024-02-02] MEDS: ONDANSETRON HCL 4 MG/2 ML VIAL IV ONE (11:34)
[2024-02-02] MEDS ORDERED: DEXTROSE (50%) 50ML SYRG IV PRN (13:00)
[2024-02-02 13:29] LABS: Triglycerides 142 mg/dL (< 150)
[2024-02-02 13:30] LABS: LDL Cholesterol 98 mg/dL (< 100)
[2024-02-02 13:31] LABS: HDL Cholesterol 44 mg/dL (40-59)
[2024-02-02 13:32] LABS: Cholesterol 154 mg/dL (< 200)
[2024-02-02] MEDS: ONDANSETRON HCL 4 MG/2 ML VIAL IV PRN (14:23)
[2024-02-02] MEDS: SODIUM CHLORIDE 0.9% 1,000 ML IV SCH (14:24)
[2024-02-02] MEDS: PANTOPRAZOLE 40 MG/10 ML VIAL INJ IV ONE (14:24)
[2024-02-02] MEDS: InsuLIN REG 1unit/0.01ml Soln (100units/ml) SC SCH (17:54)
[2024-02-02] MEDS: ACCU-CHEK COMFORT CURVE STRIP VI SCH (17:56)
[2024-02-03] MEDS: ACETAMINOPHEN 325 MG TAB PO PRN (04:11)
[2024-02-03 04:39] LABS: Basophils # (auto) 0 10 ^3/uL (0-0.2); Basophils % (auto) 0.7 % (0.0-2.0); Eosinophils # (auto) 0.1 10 ^3/uL (0-0.8); Eosinophils % (auto) 1.4 % (0.0-7.0); Hematocrit 39.8 % (36.0-46.0); Lymphocytes # (auto) 1.4 10 ^3/uL (0.4-5.4); Lymphocytes % (auto) 25.2 % (10.0-50.0); Mean Corpuscular Hemoglobin 27.9 pg (28.0-32.0); Mean Corpuscular Hgb Conc. 32.7 g/dL (32.0-36.0); Mean Corpuscular Volume 85.2 fL (80.0-100.0); Monocytes # (auto) 0.4 10 ^3/uL (0-1.3); Monocytes % (auto) 7.9 % (0.0-12.0); Neutrophils # (auto) 3.5 10 ^3/uL (1.6-8.6); Neutrophils % (auto) 64.8 % (37.0-80.0); Nucleated Red Blood Cells % 0.1 %; Red Blood Cells 4.67 10^6/uL (4.0-5.20); Red Cell Distribution Width 15.8 % (11.8-14.3); White Blood Cell 5.5 10^3/uL (4.4-10.8)
[2024-02-03 04:56] LABS: Alanine Aminotransferase 19 U/L (7-40); Albumin 3.6 g/dL (3.2-4.8); Alkaline Phosphatase 64 U/L (46-116); Anion Gap 6 (5-15); Aspartate Aminotransferase 12 U/L (13-40); BUN/Creatinine Ratio 13.6 (10.0-20.0); Bilirubin, Total 0.5 mg/dL (0.2-1.0); Blood Urea Nitrogen 9 mg/dL (9-23); Calcium 8.3 mg/dL (8.7-10.4); Carbon Dioxide 25 mmol/L (20-30); Chloride 109 mmol/L (98-107); Glucose 136 mg/dL (74-106); Potassium 3.9 mmol/L (3.5-5.1); Sodium 140 mmol/L (136-145)
[2024-02-03] MEDS: ENOXAPARIN SOD 40 MG/0.4 ML SYRINGE SC SCH (14:43)
[2024-02-03] MEDS: PANTOPRAZOLE 40 MG/10 ML VIAL INJ IV SCH (14:43)
[2024-02-03 15:15] VITALS: BP 115/60; PULSE 80; RESP 20; TEMP 98.4; O2SAT 94
[2024-02-03 17:00] VITALS: BP 124/46; PULSE 77; RESP 20; TEMP 97.9; O2SAT 94
[2024-02-03 20:00] VITALS: PULSE 82; RESP 18; O2SAT 96
[2024-02-03 20:17] LABS: Erythrocyte Sedimentation Rate 2 mm/hr (0-20)
[2024-02-03 21:00] VITALS: BP 136/74; PULSE 82; RESP 18; TEMP 98.3; O2SAT 92
[2024-02-03] MEDS: HYDROcodone-ACET 5/325MG TAB PO PRN (22:18)
[2024-02-03] MEDS: MELATONIN 5 MG TAB PO SCH (22:19)
[2024-02-04 01:00] VITALS: BP 117/59; PULSE 82; RESP 18; TEMP 98; O2SAT 96
[2024-02-04 05:00] VITALS: BP 116/54; PULSE 81; RESP 18; TEMP 98.1; O2SAT 97
[2024-02-04 07:43] VITALS: BP 144/59; PULSE 82; RESP 20; TEMP 98.7; O2SAT 94
[2024-02-04 12:12] VITALS: BP 124/53; PULSE 72; RESP 18; TEMP 98.6; O2SAT 93
[2024-02-04 12:26] VITALS: BP 143/59; PULSE 82; RESP 20; TEMP 98.7; O2SAT 94
== END 2024-02-04 14:36 | disposition home or self-care (01) | DRG 392 ==
LOC: EDBD 08:42 → ER 08:42 → OVERFLOW 12:29 → CENTRAL 02-03 15:31
PROVIDERS: ADMIT Nurse Practitioner Family; ATTEND Nurse Practitioner Acute Care
DX: A08.4 Viral intestinal infection, unspecified (principal); Z68.42 Body mass index [BMI] 45.0-49.9, adult; E66.01 Morbid (severe) obesity due to excess calories; I10 Essential (primary) hypertension; F41.9 Anxiety disorder, unspecified; Z88.0 Allergy status to penicillin; Z86.73 Personal history of transient ischemic attack (TIA), and cerebral infarction without residual deficits; Z90.49 Acquired absence of other specified parts of digestive tract; Z83.3 Family history of diabetes mellitus; Z82.49 Family history of ischemic heart disease and other diseases of the circulatory system; Z98.51 Tubal ligation status; E11.65 Type 2 diabetes mellitus with hyperglycemia
CPT/HCPCS: 36415; 80048; 80053; 80061; 81001; 82962; 83036; 84443; 84484; 85025; 85652; 86141; 87045; 87177; 87427; 87493; 93005; 96374; 96375; G0378; J1815; J2405; J2470

== ENCOUNTER 2024-04-10 22:56 | Inpatient (IN) | payer MEDICARE, BC ==
[~2024-04-10] VITALS: Ht 162.6 cm; Wt 137.8 kg
[~2024-04-10 22:56] MED LIST changes: +AZIT500T66 PO; -HYD25TP PR; +INSUINJ37 SC; +LEVO500T91 PO; -PITO17.8 PO
[2024-04-10] MEDS: INSULIN LISPRO (HUMAN) 100 UNITS/ML ML SC ONE (23:15)
[2024-04-10 23:34] LABS: Basophils # (auto) 0 10 ^3/uL (0-0.2); Basophils % (auto) 0.8 % (0.0-2.0); Eosinophils # (auto) 0.1 10 ^3/uL (0-0.8); Eosinophils % (auto) 1.1 % (0.0-7.0); Hematocrit 42.2 % (36.0-46.0); Hemoglobin 13.8 g/dL (12.2-16.2); Lymphocytes # (auto) 1.5 10 ^3/uL (0.4-5.4); Lymphocytes % (auto) 25.8 % (10.0-50.0); Mean Corpuscular Hemoglobin 27.1 pg (28.0-32.0); Mean Corpuscular Hgb Conc. 32.6 g/dL (32.0-36.0); Mean Corpuscular Volume 83.2 fL (80.0-100.0); Monocytes # (auto) 0.5 10 ^3/uL (0-1.3); Monocytes % (auto) 8.3 % (0.0-12.0); Neutrophils # (auto) 3.8 10 ^3/uL (1.6-8.6); Platelet Count (auto) 207 10^3/uL (140-450); Red Blood Cells 5.07 10^6/uL (4.0-5.20); Red Cell Distribution Width 15.2 % (11.8-14.3)
[2024-04-10 23:35] LABS: Urine Bacteria None Seen /hpf (None Seen)
[2024-04-10 23:50] LABS: Urine Blood Negative /uL (Negative); Urine Budding Yeast FEW /hpf (None Seen); Urine Clarity Clear (Clear); Urine Color Light-Yellow (Yellow); Urine Protein, UAD Negative (Negative); Urine Specific Gravity 1.039 (1.001-1.035); Urine Urobilinogen Normal (Negative); Urine WBC 23 /hpf (0 - 5); Urine WBC Clumps PRESENT /hpf (None Seen)
[2024-04-10 23:54] LABS: Base Excess -1.6 mmol/L (-2.0-3.0)
[2024-04-10 23:57] LABS: Alanine Aminotransferase 24 U/L (7-40); Albumin 4.2 g/dL (3.2-4.8); Alkaline Phosphatase 102 U/L (46-116); Anion Gap 7 (5-15); Aspartate Aminotransferase 15 U/L (13-40); BUN/Creatinine Ratio 13.6 (10.0-20.0); Blood Urea Nitrogen 12 mg/dL (9-23); Calcium 9.1 mg/dL (8.7-10.4); Carbon Dioxide 23 mmol/L (20-31); Chloride 103 mmol/L (98-107); Lipase 35 U/L (12-53); Potassium 4.1 mmol/L (3.5-5.1); Sodium 133 mmol/L (136-145)
[2024-04-10 23:58] LABS: Bilirubin, Total 0.2 mg/dL (0.2-1.0); Total Protein 6.7 g/dL (5.7-8.2)
[2024-04-11 00:11] LABS: Glucose 493 mg/dL (74-106)
[2024-04-11] MEDS: SODIUM CHLORIDE 0.9% 1,000 ML IV ONE (00:40)
[2024-04-11] MEDS ORDERED: INSULIN LISPRO (HUMAN) 100 UNITS/ML ML SC ONE ×2 (00:45)
[2024-04-11] MEDS ORDERED: NITROFURANTOIN 100 mg CAP PO ONE (00:56)
[2024-04-11] MEDS ORDERED: ONDANSETRON ODT 4 MG TAB ONE (00:57)
[2024-04-11] MEDS: NITROFURANTOIN 100 mg CAP PO ONE (01:14)
[2024-04-11] MEDS: ONDANSETRON ODT 4 MG TAB PO ONE (01:15)
[2024-04-11] MEDS: InsuLIN REG 1unit/0.01ml Soln (100units/ml) SC ONE ×2 (01:35→02:46)
[2024-04-11] MEDS ORDERED: InsuLIN REG 1unit/0.01ml Soln (100units/ml) ONE ×3 (01:38→04:13)
[2024-04-11] MEDS ORDERED: ONDANSETRON HCL 4 MG/2 ML VIAL IV PRN (03:30)
[2024-04-11] MEDS ORDERED: hydrALAZINE HCL 20 MG/ML VL IV PRN (03:30)
[2024-04-11] MEDS ORDERED: DEXTROSE (50%) 50ML SYRG IV PRN (03:30)
[2024-04-11] MEDS: InsuLIN REG 1unit/0.01ml Soln (100units/ml) SC SCH (04:20)
[2024-04-11] MEDS: ACCU-CHEK COMFORT CURVE STRIP VI SCH (04:20)
[2024-04-11] MEDS ORDERED: levoFLOXacin 500MG 100 ML IV ONE (04:42)
[2024-04-11] MEDS: levoFLOXacin 500MG 100 ML IV ONE (04:44)
[2024-04-11] MEDS: SODIUM CHLORIDE 0.9% 1,000 ML IV SCH (04:44)
[2024-04-11 05:02] LABS: Basophils # (auto) 0 10 ^3/uL (0-0.2); Basophils % (auto) 0.8 % (0.0-2.0); Eosinophils # (auto) 0.1 10 ^3/uL (0-0.8); Eosinophils % (auto) 1.3 % (0.0-7.0); Hematocrit 40.1 % (36.0-46.0); Hemoglobin 13.2 g/dL (12.2-16.2); Lymphocytes # (auto) 1.6 10 ^3/uL (0.4-5.4); Lymphocytes % (auto) 30.6 % (10.0-50.0); Mean Corpuscular Hgb Conc. 32.8 g/dL (32.0-36.0); Mean Corpuscular Volume 82.2 fL (80.0-100.0); Monocytes # (auto) 0.4 10 ^3/uL (0-1.3); Neutrophils # (auto) 3.2 10 ^3/uL (1.6-8.6); Neutrophils % (auto) 59.3 % (37.0-80.0); Platelet Count (auto) 203 10^3/uL (140-450); Red Blood Cells 4.88 10^6/uL (4.0-5.20); Red Cell Distribution Width 15.2 % (11.8-14.3); White Blood Cell 5.3 10^3/uL (4.4-10.8)
[2024-04-11 05:26] LABS: Alanine Aminotransferase 23 U/L (7-40); Alkaline Phosphatase 95 U/L (46-116); Anion Gap 8 (5-15); Aspartate Aminotransferase 12 U/L (13-40); BUN/Creatinine Ratio 14.5 (10.0-20.0); Bilirubin, Total 0.3 mg/dL (0.2-1.0); Blood Urea Nitrogen 11 mg/dL (9-23); Calcium 8.8 mg/dL (8.7-10.4); Carbon Dioxide 24 mmol/L (20-31); Chloride 106 mmol/L (98-107); Glucose 350 mg/dL (74-106); Sodium 138 mmol/L (136-145)
[2024-04-11 05:27] LABS: Total Protein 6.4 g/dL (5.7-8.2)
[2024-04-11] MEDS ORDERED: MORPHINE SULFATE INJ 2 MG/ml SYRG IV PRN (07:30)
[2024-04-11] MEDS ORDERED: NITROGLYCERIN 0.4 MG SL TAB SL PRN (07:30)
[2024-04-11 08:00] VITALS: PULSE 91; RESP 18; O2SAT 93
[2024-04-11] MEDS: HYDROcodone-ACET 5/325MG TAB PO PRN (08:44)
[2024-04-11] MEDS: InsuLIN REG 1unit/0.01ml Soln (100units/ml) ONE (08:46)
[2024-04-11] MEDS ORDERED: HYDROcodone-ACET 5/325MG TAB ONE (08:48)
[2024-04-11 10:26] VITALS: BP 104/50; PULSE 92; RESP 18; TEMP 97.9; O2SAT 90
[2024-04-11 17:00] VITALS: BP 119/69; PULSE 83; RESP 17; TEMP 97.7; O2SAT 98
[2024-04-11] MEDS: ACETAMINOPHEN 325 MG TAB PO PRN (17:25)
[2024-04-11 20:00] VITALS: PULSE 104; PULSE 93; RESP 18; O2SAT 98
[2024-04-11 21:00] VITALS: BP 126/64; PULSE 91; RESP 18; TEMP 98.4; O2SAT 93
[2024-04-12] VITALS (8 sets, daily range): BP systolic 110–144; BP diastolic 46–81; PULSE 68–93; RESP 16–20; TEMP 97.5–98.1; O2SAT 93–96
[2024-04-12] MEDS: DOCUSATE SOD 100 MG CAP PO PRN (00:48)
[2024-04-12 05:17] LABS: Basophils # (auto) 0 10 ^3/uL (0-0.2); Basophils % (auto) 0.7 % (0.0-2.0); Eosinophils # (auto) 0.1 10 ^3/uL (0-0.8); Eosinophils % (auto) 1.3 % (0.0-7.0); Hematocrit 40.2 % (36.0-46.0); Hemoglobin 13.1 g/dL (12.2-16.2); Lymphocytes # (auto) 1.9 10 ^3/uL (0.4-5.4); Lymphocytes % (auto) 36.4 % (10.0-50.0); Mean Corpuscular Hemoglobin 27.1 pg (28.0-32.0); Mean Corpuscular Hgb Conc. 32.5 g/dL (32.0-36.0); Mean Corpuscular Volume 83.4 fL (80.0-100.0); Monocytes # (auto) 0.4 10 ^3/uL (0-1.3); Monocytes % (auto) 7.6 % (0.0-12.0); Neutrophils # (auto) 2.8 10 ^3/uL (1.6-8.6); Nucleated Red Blood Cells % 0.2 %; Platelet Count (auto) 187 10^3/uL (140-450); Red Blood Cells 4.82 10^6/uL (4.0-5.20); Red Cell Distribution Width 15.3 % (11.8-14.3); White Blood Cell 5.2 10^3/uL (4.4-10.8)
[2024-04-12 05:44] LABS: Alanine Aminotransferase 23 U/L (7-40); Alkaline Phosphatase 78 U/L (46-116); Anion Gap 8 (5-15); BUN/Creatinine Ratio 13.2 (10.0-20.0); Blood Urea Nitrogen 9 mg/dL (9-23); Calcium 8.8 mg/dL (8.7-10.4); Carbon Dioxide 21 mmol/L (20-31); Chloride 108 mmol/L (98-107); Glucose 211 mg/dL (74-106); Potassium 3.8 mmol/L (3.5-5.1); Sodium 137 mmol/L (136-145)
[2024-04-12 05:45] LABS: Albumin 3.7 g/dL (3.2-4.8); Aspartate Aminotransferase 18 U/L (13-40); Bilirubin, Total 0.4 mg/dL (0.2-1.0); Total Protein 6.1 g/dL (5.7-8.2)
[2024-04-12] MEDS: levoFLOXacin 500MG 100 ML IV SCH (05:46)
[2024-04-12] MEDS: NITROFURANTOIN 100 mg CAP PO ONE (15:43)
[2024-04-12] MEDS: ASPirin 81 mg TAB PO ONE (15:43)
[2024-04-12] MEDS: FLUoxetine HCL 20 MG CAP PO ONE (15:44)
[2024-04-12] MEDS: LISINOPRIL 5 MG TAB PO ONE (15:44)
[2024-04-12] MEDS: INSULIN LANTUS (GLARGINE) 1 /0.01ml (100units/ml) SC ONE (15:51)
[2024-04-12] MEDS: PANTOPRAZOLE 40 MG TAB PO SCH (17:00)
[2024-04-12] MEDS: ZOLPIDEM TARTRATE 5 MG TAB PO PRN (21:51)
[2024-04-12] MEDS: NITROFURANTOIN 100 mg CAP PO SCH (21:51)
[2024-04-13 01:00] VITALS: BP 117/65; PULSE 76; RESP 20; TEMP 97.9; O2SAT 94
[2024-04-13 06:15] VITALS: BP 111/61; PULSE 75; RESP 19; TEMP 97.3; O2SAT 94
[2024-04-13] MEDS: INSULIN LANTUS (GLARGINE) 1 /0.01ml (100units/ml) SC SCH (06:26)
[2024-04-13 07:12] LABS: Basophils # (auto) 0 10 ^3/uL (0-0.2); Basophils % (auto) 0.6 % (0.0-2.0); Eosinophils # (auto) 0.1 10 ^3/uL (0-0.8); Eosinophils % (auto) 1.5 % (0.0-7.0); Hematocrit 39.2 % (36.0-46.0); Lymphocytes # (auto) 1.4 10 ^3/uL (0.4-5.4); Lymphocytes % (auto) 31.1 % (10.0-50.0); Mean Corpuscular Hemoglobin 27.2 pg (28.0-32.0); Mean Corpuscular Hgb Conc. 33.2 g/dL (32.0-36.0); Monocytes # (auto) 0.4 10 ^3/uL (0-1.3); Monocytes % (auto) 8.1 % (0.0-12.0); Neutrophils # (auto) 2.6 10 ^3/uL (1.6-8.6); Neutrophils % (auto) 58.7 % (37.0-80.0); Nucleated Red Blood Cells % 0.2 %; Platelet Count (auto) 176 10^3/uL (140-450); Red Blood Cells 4.78 10^6/uL (4.0-5.20); Red Cell Distribution Width 14.9 % (11.8-14.3); White Blood Cell 4.4 10^3/uL (4.4-10.8)
[2024-04-13 07:31] LABS: Anion Gap 5 (5-15); Carbon Dioxide 24 mmol/L (20-31); Chloride 109 mmol/L (98-107); Potassium 3.6 mmol/L (3.5-5.1); Sodium 138 mmol/L (136-145)
[2024-04-13 07:37] LABS: Blood Urea Nitrogen 6 mg/dL (9-23); Glucose 145 mg/dL (74-106)
[2024-04-13 08:15] VITALS: PULSE 114; O2SAT 93
[2024-04-13 08:40] VITALS: BP 107/59; PULSE 94; RESP 22; TEMP 97.7; O2SAT 97
[2024-04-13] MEDS: LISINOPRIL 5 MG TAB PO SCH (10:08)
[2024-04-13] MEDS: FLUoxetine HCL 20 MG CAP PO SCH (10:08)
[2024-04-13] MEDS: ASPirin 81 mg TAB PO SCH (10:09)
[2024-04-13 12:40] VITALS: BP 118/59; PULSE 78; RESP 20; TEMP 97.8; O2SAT 95
[2024-04-13] MEDS ORDERED: guaiFENesin-DM 100/10mg/5ml SYR PO PRN (13:45)
[2024-04-13] MEDS ORDERED: NITR-52 PO (17:25)
== END 2024-04-13 17:45 | disposition home or self-care (01) | DRG 638 ==
LOC: EDBD 22:56 → ER 22:56 → TELE 04-11 07:26 → TELE-WESTW 04-11 10:00
PROVIDERS: ADMIT Internal Medicine Geriatric Medicine; ATTEND Emergency Medicine
DX: E11.65 Type 2 diabetes mellitus with hyperglycemia (principal); E87.1 Hypo-osmolality and hyponatremia; N39.0 Urinary tract infection, site not specified; Z68.43 Body mass index [BMI] 50.0-59.9, adult; E66.01 Morbid (severe) obesity due to excess calories; F41.9 Anxiety disorder, unspecified; G47.00 Insomnia, unspecified; K29.70 Gastritis, unspecified, without bleeding; F32.A Depression, unspecified; I10 Essential (primary) hypertension; Z88.2 Allergy status to sulfonamides; Z88.8 Allergy status to other drugs, medicaments and biological substances; Z91.041 Radiographic dye allergy status; Z79.899 Other long term (current) drug therapy; Z79.4 Long term (current) use of insulin; Z90.49 Acquired absence of other specified parts of digestive tract; Z86.73 Personal history of transient ischemic attack (TIA), and cerebral infarction without residual deficits; Z91.199 Patient's noncompliance with other medical treatment and regimen due to unspecified reason; Z98.891 History of uterine scar from previous surgery
CPT/HCPCS: 36415; 36600; 80048; 80053; 81001; 82010; 82805; 82962; 83690; 83880; 85025; 93005; 99291; G0378; J1815; J1956; Q0162

== ENCOUNTER 2024-04-14 11:11 | Inpatient (IN) | payer MEDICARE, BC ==
[~2024-04-14] VITALS: Ht 177.8 cm; Wt 134.7 kg
[~2024-04-14 11:11] MED LIST changes: +NITR-52 PO
[2024-04-14 12:27] LABS: Basophils # (auto) 0 10 ^3/uL (0-0.2); Basophils % (auto) 0.6 % (0.0-2.0); Eosinophils # (auto) 0 10 ^3/uL (0-0.8); Eosinophils % (auto) 0.4 % (0.0-7.0); Hematocrit 41.1 % (36.0-46.0); Hemoglobin 13.8 g/dL (12.2-16.2); Lymphocytes # (auto) 0.6 10 ^3/uL (0.4-5.4); Lymphocytes % (auto) 13.4 % (10.0-50.0); Mean Corpuscular Hemoglobin 27.5 pg (28.0-32.0); Mean Corpuscular Hgb Conc. 33.5 g/dL (32.0-36.0); Monocytes # (auto) 0.3 10 ^3/uL (0-1.3); Monocytes % (auto) 7.5 % (0.0-12.0); Neutrophils # (auto) 3.4 10 ^3/uL (1.6-8.6); Neutrophils % (auto) 78.1 % (37.0-80.0); Nucleated Red Blood Cells % 0.1 %; Platelet Count (auto) 181 10^3/uL (140-450); Red Blood Cells 5.01 10^6/uL (4.0-5.20); Red Cell Distribution Width 15.4 % (11.8-14.3); White Blood Cell 4.3 10^3/uL (4.4-10.8)
[2024-04-14 12:29] LABS: Chloride 106 mmol/L (98-107); Potassium 3.7 mmol/L (3.5-5.1); Sodium 137 mmol/L (136-145)
[2024-04-14 12:30] LABS: Anion Gap 10 (5-15); Calcium 9.5 mg/dL (8.7-10.4); Carbon Dioxide 21 mmol/L (20-31)
[2024-04-14 12:35] LABS: BUN/Creatinine Ratio 9.9 (10.0-20.0); Blood Urea Nitrogen 7 mg/dL (9-23); Glucose 331 mg/dL (74-106)
[2024-04-14 15:32] LABS: Urine Bacteria FEW /hpf (None Seen); Urine Blood Negative /uL (Negative); Urine Budding Yeast LOADED /hpf (None Seen); Urine Clarity Turbid (Clear); Urine Color Yellow (Yellow); Urine Mucus FEW (None Seen); Urine Protein, UAD TRACE (Negative); Urine Specific Gravity 1.035 (1.001-1.035); Urine Urobilinogen Normal (Negative); Urine WBC 16 /hpf (0 - 5); Urine pH 5.5 (5.0-9.0)
[2024-04-14 16:03] VITALS: PULSE 103; RESP 16; O2SAT 98
[2024-04-14] MEDS ORDERED: ALBUTEROL SULF 2.5 MG/0.5ML(0.5%) NEB SOLN NEB SCH (16:45)
[2024-04-14] MEDS ORDERED: IPRATROPIUM BROM 0.5 MG/2.5ML INH SOL NEB SCH (16:45)
[2024-04-14] MEDS: cefTRIAXone 1GM/50ML D5W 50 ML IV SCH (16:45)
[2024-04-14] MEDS: methylPREDNISolone SOD SUCC 125 MG/2 ML VL IV SCH (16:45)
[2024-04-14] MEDS: ACCU-CHEK COMFORT CURVE STRIP VI SCH (17:00)
[2024-04-14] MEDS ORDERED: DOCUSATE SOD 100 MG CAP PO PRN (17:00)
[2024-04-14] MEDS: InsuLIN REG 1unit/0.01ml Soln (100units/ml) SC SCH ×2 (17:00→23:44)
[2024-04-14] MEDS ORDERED: ACETAMINOPHEN 325 MG TAB PO PRN (17:00)
[2024-04-14] MEDS ORDERED: DEXTROSE (50%) 50ML SYRG IV PRN (17:00)
[2024-04-14] MEDS ORDERED: ONDANSETRON HCL 4 MG/2 ML VIAL IV PRN (17:00)
[2024-04-14] MEDS ORDERED: ONDANSETRON HCL 4 MG PO PRN (17:00)
[2024-04-14] MEDS: methylPREDNISolone SOD SUCC 125 MG/2 ML VL IV ONE (17:19)
[2024-04-14 18:30] VITALS: BP 135/47; PULSE 83; RESP 18; TEMP 98.3; O2SAT 94
[2024-04-14] MEDS: HYDROcodone-ACET 5/325MG TAB PO PRN (19:02)
[2024-04-14] MEDS: HYDROmorphone HCL 2 MG/ML VL/or syr IV PRN (21:38)
[2024-04-14] MEDS ORDERED: PANTOPRAZOLE 40 MG TAB PO SCH (22:00)
[2024-04-14] MEDS ORDERED: MESALAMINE 400mg Delayed Release Cap PO SCH (22:00)
[2024-04-14 22:05] VITALS: PULSE 89; RESP 16; O2SAT 96
[2024-04-14] MEDS: IPRATROPIUM BROM 0.5 MG/2.5ML INH SOL NEB SCH (22:09)
[2024-04-14] MEDS: ALBUTEROL SULF 2.5 MG/0.5ML(0.5%) NEB SOLN NEB SCH (22:10)
[2024-04-14 22:11] VITALS: PULSE 88; RESP 18; O2SAT 98
[2024-04-14 23:10] VITALS: PULSE 89; RESP 18; O2SAT 96
[2024-04-14] MEDS: SODIUM CHLOR 0.9% PF (SALINE LOCK) 10ML VIAL/SYR IV SCH (23:11)
[2024-04-15] VITALS (10 sets, daily range): BP systolic 98; BP diastolic 45; PULSE 76–132; RESP 16–18; TEMP 97.7; O2SAT 93–98
[2024-04-15] MEDS: DIPHENOXYLATE W/ATROPINE 2.5 MG TAB PO SCH (00:14)
[2024-04-15] MEDS ORDERED: INSULIN GLARGINE 100 UNIT SC SCH (10:00)
[2024-04-15] MEDS: ENOXAPARIN SOD 40 MG/0.4 ML SYRINGE SC SCH (10:10)
[2024-04-15] MEDS: PANTOPRAZOLE 40 MG/10 ML VIAL INJ IV SCH (10:10)
[2024-04-15] MEDS: FUROSEMIDE 20 MG TAB PO SCH (10:11)
[2024-04-15] MEDS: FLUoxetine HCL 20 MG CAP PO SCH (10:11)
[2024-04-15] MEDS: LISINOPRIL 5 MG TAB PO SCH (10:24)
[2024-04-15] MEDS: INSULIN LISPRO (HUMAN) 100 UNITS/ML ML SC SCH (12:00)
[2024-04-15] MEDS: HYDROcodone-ACET 5/325MG TAB PO SCH (15:40)
[2024-04-15 17:12] LABS: COVID19 ANTIGEN SOFIA FIA NEGATIVE (NEGATIVE)
[2024-04-15 17:13] LABS: Rapid Influenza A Negative (Negative); Rapid Influenza B Negative (Negative)
[2024-04-15 18:50] LABS: Chloride 102 mmol/L (98-107); Sodium 135 mmol/L (136-145)
[2024-04-15 18:51] LABS: Anion Gap 11 (5-15); Carbon Dioxide 22 mmol/L (20-31)
[2024-04-15 18:52] LABS: Calcium 10.2 mg/dL (8.7-10.4)
[2024-04-15 18:57] LABS: BUN/Creatinine Ratio 13.9 (10.0-20.0); Blood Urea Nitrogen 16 mg/dL (9-23)
[2024-04-15 19:03] LABS: Glucose 485 mg/dL (74-106)
[2024-04-15] MEDS: MORPHINE SULFATE 4 MG/ML SYR/VIAL IV PRN (21:49)
[2024-04-15] MEDS: FLUTICASONE PROP NASAL SPR 0.05 % (50MCG) 16GM EACHNOSTRI SCH (22:00)
[2024-04-15] MEDS ORDERED: INSU100I45 IJ (23:22)
[2024-04-15] MEDS ORDERED: [UNRECOGNIZED DRUG - CODE] PO (23:22)
[2024-04-15] MEDS ORDERED: OMEP20TA PO (23:22)
[2024-04-15] MEDS ORDERED: GABA-1250 PO (23:22)
[2024-04-16] VITALS (9 sets, daily range): BP systolic 106–128; BP diastolic 40–71; PULSE 71–88; RESP 16–18; TEMP 97.3–97.8; O2SAT 92–98
[2024-04-16] MEDS: CEPHALEXIN 250 MG CAP PO SCH (01:04)
[2024-04-16] MEDS: INSULIN LANTUS (GLARGINE) 1 /0.01ml (100units/ml) SC SCH (06:00)
[2024-04-16 12:40] LABS: Chloride 104 mmol/L (98-107); Potassium 3.4 mmol/L (3.5-5.1); Sodium 138 mmol/L (136-145)
[2024-04-16 12:41] LABS: Anion Gap 10 (5-15); Carbon Dioxide 24 mmol/L (20-31)
[2024-04-16 12:46] LABS: Glucose 193 mg/dL (74-106)
[2024-04-16 12:47] LABS: BUN/Creatinine Ratio 19.8 (10.0-20.0); Blood Urea Nitrogen 17 mg/dL (9-23)
[2024-04-16] MEDS ORDERED: PITO17.8 PO (15:31)
[2024-04-16 16:48] LABS: Urine Bacteria None Seen /hpf (None Seen)
[2024-04-16] MEDS: POTASSIUM EFFERVESENT TAB 25 MEQ PO ONE (16:55)
[2024-04-16 17:41] LABS: Urine Amorphous Crystal MOD /hpf (None Seen); Urine Blood Negative /uL (Negative); Urine Budding Yeast FEW /hpf (None Seen); Urine Clarity Ex.Turbid (Clear); Urine Color Light-Orange (Yellow); Urine Protein, UAD 1+ (Negative); Urine Specific Gravity 1.035 (1.001-1.035); Urine Urobilinogen Normal (Negative); Urine WBC 101 /hpf (0 - 5); Urine pH 5.5 (5.0-9.0)
[2024-04-16] MEDS: ZOLPIDEM TARTRATE 5 MG TAB PO PRN (22:32)
[2024-04-17] VITALS (8 sets, daily range): BP systolic 104–126; BP diastolic 50–66; PULSE 82–99; RESP 16–20; TEMP 97.6–98.8; O2SAT 93–97
[2024-04-17 07:30] LABS: Chloride 104 mmol/L (98-107); Potassium 4.1 mmol/L (3.5-5.1)
[2024-04-17 07:31] LABS: Anion Gap 7 (5-15); Calcium 9.5 mg/dL (8.7-10.4); Carbon Dioxide 22 mmol/L (20-31)
[2024-04-17 07:36] LABS: Blood Urea Nitrogen 13 mg/dL (9-23); Glucose 256 mg/dL (74-106)
[2024-04-17 07:37] LABS: Sodium 133 mmol/L (136-145)
[2024-04-17] MEDS: POTASSIUM EFFERVESENT TAB 25 MEQ PO SCH (09:57)
[2024-04-17 12:48] LABS: Basophils # (auto) 0 10 ^3/uL (0-0.2); Basophils % (auto) 0.6 % (0.0-2.0); Eosinophils # (auto) 0.1 10 ^3/uL (0-0.8); Eosinophils % (auto) 1.1 % (0.0-7.0); Hematocrit 41.9 % (36.0-46.0); Hemoglobin 13.4 g/dL (12.2-16.2); Lymphocytes # (auto) 2.3 10 ^3/uL (0.4-5.4); Lymphocytes % (auto) 35.4 % (10.0-50.0); Mean Corpuscular Hemoglobin 26.7 pg (28.0-32.0); Mean Corpuscular Hgb Conc. 32.1 g/dL (32.0-36.0); Mean Corpuscular Volume 83.4 fL (80.0-100.0); Monocytes # (auto) 0.6 10 ^3/uL (0-1.3); Monocytes % (auto) 9.3 % (0.0-12.0); Neutrophils # (auto) 3.5 10 ^3/uL (1.6-8.6); Neutrophils % (auto) 53.6 % (37.0-80.0); Nucleated Red Blood Cells % 0.1 %; Platelet Count (auto) 226 10^3/uL (140-450); Red Blood Cells 5.02 10^6/uL (4.0-5.20); Red Cell Distribution Width 15.8 % (11.8-14.3); White Blood Cell 6.5 10^3/uL (4.4-10.8)
[2024-04-17] MEDS ORDERED: INSU100I45 IJ (15:31)
[2024-04-17] MEDS ORDERED: FLUT50SP EACHNOSTRI (15:31)
[2024-04-17] MEDS ORDERED: HYDR-4902 PO (15:31)
[2024-04-17] MEDS ORDERED: INSUINJ37 SC (15:31)
[2024-04-18] VITALS (7 sets, daily range): BP systolic 104–138; BP diastolic 46–80; PULSE 67–100; RESP 14–20; TEMP 97–98.6; O2SAT 95–98
[2024-04-18] MEDS ORDERED: DOCUSATE SOD 100 MG CAP PO PRN (09:15)
[2024-04-19] VITALS (7 sets, daily range): BP systolic 112–151; BP diastolic 52–83; PULSE 68–82; RESP 17–21; TEMP 97.6–98.4; O2SAT 93–96
[2024-04-19] MEDS: DICYCLOMINE HCL 10 MG CAP PO PRN (00:17)
[2024-04-20 09:00] VITALS: BP 114/41; PULSE 80; RESP 16; TEMP 97.8; O2SAT 95
[2024-04-20 10:00] VITALS: O2SAT 96
[2024-04-20] MEDS ORDERED: DOCU-265 PO (10:23)
[2024-04-20] MEDS ORDERED: MORP15TA PO (10:37)
[2024-04-20] MEDS ORDERED: HYDR-4902 PO (10:37)
[2024-04-20 12:58] VITALS: BP 125/71; PULSE 74; RESP 17; TEMP 97.8; O2SAT 91
[2024-04-20 13:00] VITALS: BP 125/71; PULSE 74; RESP 17; TEMP 97.8; O2SAT 91
== END 2024-04-20 14:45 | disposition home or self-care (01) | DRG 638 ==
LOC: EDBD 11:11 → ER 11:11 → OVERFLOW 16:56 → WEST WING 04-15 21:56
PROVIDERS: ADMIT Internal Medicine; ATTEND Student in an Organized Health Care Education/Training Program
DX: E11.65 Type 2 diabetes mellitus with hyperglycemia (principal); N39.0 Urinary tract infection, site not specified; Z68.43 Body mass index [BMI] 50.0-59.9, adult; E66.01 Morbid (severe) obesity due to excess calories; G47.33 Obstructive sleep apnea (adult) (pediatric); J32.9 Chronic sinusitis, unspecified; I10 Essential (primary) hypertension; G89.29 Other chronic pain; J06.9 Acute upper respiratory infection, unspecified; Z79.4 Long term (current) use of insulin; Z90.49 Acquired absence of other specified parts of digestive tract; Z83.3 Family history of diabetes mellitus; Z82.49 Family history of ischemic heart disease and other diseases of the circulatory system; Z86.73 Personal history of transient ischemic attack (TIA), and cerebral infarction without residual deficits; Z85.038 Personal history of other malignant neoplasm of large intestine
CPT/HCPCS: 36415; 71045; 80048; 81001; 82010; 82962; 83605; 83880; 84484; 85025; 85379; 87040; 87081; 87086; 87426; 87804; 93005; 94640; 99291; G0378; J1815; J2470

== ENCOUNTER 2024-05-03 18:06 | Inpatient (IN) | payer MEDICARE, BC ==
[~2024-05-03] VITALS: Ht 162.6 cm; Wt 131.0 kg
[~2024-05-03 18:06] MED LIST changes: -AZIT500T66 PO; +CIPR-173 PO; -DIPH2.5T73 PO; +DOCU-265 PO; +FLUT50SP EACHNOSTRI; -FURO20TA3 PO; +GABA-1250 PO; +HYDR-4902 PO; +INSU100I45 IJ; -INSU1INJ19 SC; -LEVO500T91 PO; -MESA400C PO; +MORP15TA PO; -NITR-52 PO; +OMEP20TA PO; -PANT40TA2 PO; +PITO17.8 PO; +[UNRECOGNIZED DRUG - CODE] PO
--- NOTE | 2024-05-03 18:30 | ED.PDOC ---
HPI Comments 64y F who presents to the ED for chief complaint of chest pain. 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 Pt states the pain was L sided, intermittent, dull in nature, rating the pain 8/10, with no associated exacerbating or relieving factors. Pt denies any associated symptoms but denies diaphoresis, palpitations, nausea, vomiting, shortness of breath, headache or dizziness. Pt has stable vitals per EMS with noted 02 sat of 99% on room air with all other vitals in normal range. Pt otherwise states she was recently told at doctors appt she was diagnosed with diastolic heart failure. EMS states pt was given 324 ASA prior to ED arrival with minimal relief of symptoms. Pt denies any other symptoms at this time. Chief Complaint: chest pain Time Seen by MD: 18:21 Primary Care Provider: BRIDGETTE Reviewed Notes: Nurses Notes, Medications, Allergies Allergies: Coded Allergies: Indomethacin (Verified Allergy, Unknown, 12/21/09) Sulfa Drugs (Verified Allergy, Unknown, 12/21/09) Home Meds Active Scripts Ciprofloxacin Hcl (Cipro) 500 Mg Tab, 1 TAB PO BID, #20 TAB Prov:CECILIA BRITO MD 04/30/24 Morphine Sulfate (Morphine Sulfate) 15 Mg Tab, 1 TAB PO QID for 1 Day, #4 TAB Prov:MOUNIKA TILLMAN MD 04/20/24 Hydrocodone-Acetaminophen (Hydrocodone Bitartrate/AC 5-325 mg) 1 Tab Tab, 1 TAB PO Q8HPRN PRN for 1 Day, #3 TAB Prov:MOUNIKA TILLMAN MD 04/20/24 Docusate Sodium (Docusate Sodium) 100 Mg Cap, 100 MG PO BIDPRN PRN for 15 Days, #15 CAP Prov:MOUNIKA TILLMAN MD 04/20/24 Fluticasone Propionate (Nasal) (Fluticasone Propionate) 50 Mcg/Act Spr, 50 MCG EACHNOSTRI Q12HR for 30 Days, #2 SPRAY Prov:MOUNIKA TILLMAN MD 04/17/24 Insulin Regular (Human) (Novolin R Flexpen) 100 Unit/Ml Inj, 15 UNIT IJ TID for 28 Days, #100 INJ 15 units before meals, cheack blood sugar 2 hours after meal and add sliding scale Prov:MOUNIKA TILLMAN MD 04/17/24 Insulin Glargine (Lantus Solostar) 100 Unit/Ml Inj, 90 UNITS SC DAILY for 28 Days, #30 INJ Prov:MOUNIKA TILLMAN MD 04/17/24 Dicyclomine Hcl (BENTYL CAPSULE) 10 Mg Cp, 1 CAP PO TID, #30 CAP 11 Refills Prov:MARLI BARAJAS MD 07/09/23 Reported Medications Omeprazole (Gnp Omeprazole) 20 Mg Tab, 20 MG PO DAILY, TAB 04/15/24 Gabapentin (Gabapentin) 300 Mg Cap, 1 CAP PO TID 04/15/24 Rxtumuzkegnfk-Zubfnkbnrar-Bykl (Phenobarbital/Hyoscyamine 16.2 mg) 1 Tab Tab, 1 TAB PO TID 04/15/24 Ondansetron HCl (Ondansetron) 4 Mg Tab, 4 MG PO DAILY PRN for NAUSEA 07/15/23 Zolpidem Tartrate (Zolpidem Tartrate) 10 Mg Tab, 1 TAB PO HS 07/15/23 Pitolisant Hydrochloride (Wakix) 17.8 Mg Tab, 1 TAB PO BID for NARCOLEPSY for 90 Days, #180 11/02/21 Fluoxetine Hcl (Fluoxetine Hcl) 20 Mg Cap, 40 MG PO DAILY for 30 Days, MG 08/25/17 Lisinopril (Lisinopril) 10 Mg Tab, 10 MG PO DAILY for 30 Days, MG 07/26/16 Information Source: Patient, Emergency Med Personnel Mode of Arrival: EMS Brought in by: EMS Severity: Moderate Timing: Minutes, Hours Duration: Since onset Prehospital treatment: ASA Location: Chest (L) Radiation: No Radiation Quality: Other (dull) Onset: At Rest Cardiac Risk Factors: Hyperlipidemia, HTN, Diabetes PE Risk Factors: None History of: Similar pain in past Modifying Factors: Rest Associated Signs and Symptoms: None Past Medical History PAST MEDICAL HISTORY: Anxiety, Depression, DM, High Lipids, HTN, TIA, UTI'S Surgical History: Appendectomy, BTL, Cholecystectomy, , Hernia Repair COMMUNITY EDUCATION SPECIALIST History: No Pertinent COMMUNITY EDUCATION SPECIALIST History Family History Family History: Family hx of DM, Family hx of Cancer, Family hx of heart rimma Social History Smoker: Non-Smoker Alcohol: Denies ETOH Use Drugs: Denies Drug Use Lives In: Home Constitutional: denies: chills, diaphoresis, fatigue, fever, malaise, sweats, weakness, others EENTM: denies: blurred vision, double vision, ear bleeding, ear discharge, ear drainage, ear pain, ear ringing, eye pain, eye redness, hearing loss, mouth alexandra n, mouth swelling, nasal discharge, nose bleeding, nose congestion, nose pain, photophobia, tearing, throat pain, throat swelling, voice changes, others Respiratory: denies: cough, hemoptysis, orthopnea, SOB at rest, shortness of breath, SOB with excertion, stridor, wheezing, others Cardiovascular: reports: chest pain; denies: dizzy spells, diaphoresis, Dyspnea on exertion, edema, irregular heart beat, left arm pain, lightheadedness, palpitations, PND, syncope, others Gastrointestinal: denies: abdomen distended, abdominal pain, blood streaked bowels, constipated, diarrhea, dysphagia, difficulty swallowing, hematemesis, melena, nausea, poor appetite, poor fluid intake, rectal bleeding, rectal pain, vomiting, others Genitourinary: denies: abnormal vagina bleeding, burning, dyspareunia, dysuria, flank pain, frequency, hematuria, incontinence, pain, , vagina discharge, urgency, others Neurological: denies: dizziness, fainting, headache, left sided numbness, left sided weakness, numbness, paresthesia, pre-existing deficit, right sided numbness, right sided weakness, seizure, speech problems, tingling, tremors, weakness, others Musculoskeletal: denies: back pain, gout, joint pain, joint swelling, muscle pain, muscle stiffness, neck pain, others Integumetry: denies: bruises, change in color, change in hair/nails, dryness, laceration, lesions, lumps, rash, wounds, others Allergic/Immunocompromised: denies: Difficulty Healing, Frequent Infections, Hives, Itching, others Hematologic/Lymphatic: denies: anemia, blood clots, easy bleeding, easy bruisin g, swollen glands, others Endocrine: denies: excessive hunger, excessive sweating, excessive thirst, excessive urination, flushing, intolerance to cold, intolerance to heat, unexplained weight gain, unexplained weight loss, others Psychiatric: denies: anxiety, bipolar disorder, depression, hopeless, panic disorder, schizophrenia, sleepless, suicidal, others All Other Systems: Reviewed and Negative Physical Exam General Appearance: Moderate Distress, Obese HEENT: Normal ENT Inspection, Pharynx Normal, TMs Normal Neck: Full Range of Motion, Non-Tender, Normal, Normal Inspection Respiratory: Chest Non-Tender, Lungs Clear, No Accessory Muscle Use, No Respiratory Distress, Normal Breath Sounds Cardiovascular: No Edema, No JVD, No Murmur, No Gallop, Normal Peripheral Pulses, Regular Rate/Rhythm Breast Exam: Deferred Gastrointestinal: No Organomegaly, Non Tender, No Pulsatile Mass, Normal Bowel Sounds, Soft Genitalia: Deferred Pelvic: Deferred Rectal: Deferred Extremities: No calf tenderness, Normal capillary refill, Normal inspection, Normal range of motion, Non-tender, No pedal edema Musculoskeletal : Apperance: Normal Neurologic: Alert, material cutter II-XII nml as Tested, No Motor Deficits, Normal Affect, Normal Mood, No Sensory Deficits Cerebellar Function: Normal Reflexes: Normal Skin: Dry, Normal Color, Warm Lymphatic: No Adenopathy EKG EKG : Pulse Rate (adult): 83 [place]: Normal Cardiac Rhythm: NSR Block: None Hypertrophy: None ST: Normal Was a procedure done? Was a procedure done?: No CP Differential Dx Differential Diagnosis: A-fib, A-Flutter, Angina, Anxiety / Panic Attack, Atrial Dysrhythmia, AV Block 1st Degree, Electrolyte Disorder, HI Differential Diagnosis: CHF, HTN Essential, HTN Accelerated, HTN Encephalopathy, Medical NonCompliance X-Ray, Labs, Meds, VS Vital Signs Date Time Temp Pulse Resp B/P (MAP) Pulse Ox O2 Delivery O2 Flow Rate FiO2 05/03/24 18:59 77 05/03/24 18:30 83 05/03/24 18:10 98.4 85 18 130/84 (99) 99 05/03/24 18:08 83 Lab Test 05/03/24 19:33 05/03/24 18:30 Range/Units Troponin I High Sensitivity < 3 L < 3 L </=34 ng/L White Blood Count 5.4 4.4-10.8 10^3/uL Red Blood Count 4.86 4.0-5.20 10^6/uL Hemoglobin 13.5 12.2-16.2 g/dL Hematocrit 40.3 36.0-46.0 % Mean Corpuscular Volume 82.9 80.0-100.0 fL Mean Corpuscular Hemoglobin 27.7 L 28.0-32.0 pg Mean Corpuscular Hemoglobin Concent 33.4 32.0-36.0 g/dL Red Cell Distribution Width 15.6 H 11.8-14.3 % Platelet Count 225 140-450 10^3/uL Mean Platelet Volume 7.9 6.9-10.8 fL Neutrophils (%) (Auto) 60.1 37.0-80.0 % Lymphocytes (%) (Auto) 30.3 10.0-50.0 % Monocytes (%) (Auto) 7.4 0.0-12.0 % Eosinophils (%) (Auto) 1.3 0.0-7.0 % Basophils (%) (Auto) 0.9 0.0-2.0 % Neutrophils # (Auto) 3.2 1.6-8.6 10 ^3/uL Lymphocytes # (Auto) 1.6 0.4-5.4 10 ^3/uL Monocytes # (Auto) 0.4 0-1.3 10 ^3/uL Eosinophils # (Auto) 0.1 0-0.8 10 ^3/uL Basophils # (Auto) 0 0-0.2 10 ^3/uL Nucleated Red Blood Cells 0.1 % Sodium Level 138 136-145 mmol/L Potassium Level 3.9 3.5-5.1 mmol/L Chloride Level 105 98-107 mmol/L Carbon Dioxide Level 29 20-31 mmol/L Anion Gap 4 L 5-15 Blood Urea Nitrogen 12 9-23 mg/dL Creatinine 0.81 0.550-1.02 mg/dL Glomerular Filtration Rate Calc 81 >90 mL/min BUN/Creatinine Ratio 14.8 10.0-20.0 Serum Glucose 215 H 74-106 mg/dL Calcium Level 9.5 8.7-10.4 mg/dL B-Type Natriuretic Peptide 7.08 0-100 pg/mL IV Hep-Lock was established The patient was already received aspirin here in the emergency department's The CBC and chemistry panel within normal limits. The patient's troponin level x2 is negative The patient was still having chest pain The patient was being given morphine 4 mg IV push for the pain Patient was being given Zofran 4 mg IV push for the nausea The patient was admitted this time. The BNP is within normal limits. Images Reviewed?: Images reviewed and evaluated by me Time of 1ST Reevaluation: 19:00 Reevaluation 1ST: Unchanged Patient Education/Counseling: Diagnosis, Treatment, Prognosis Family Education/Counseling: No Family Present Departure 1 Departure Time of Disposition: 21:54 Impression: Primary Impression: Acute myocardial ischemia Disposition: ADMITTED INPATIENT Admit to: Tele Condition: Fair Critical Care Note Critical Care Time?: Yes (35 min-critical care time only) Stability Stability form required: Yes Unstable for transfer: Telemetry monitoring (Telemetry monitoring required), ED Physician Assesment (Clinical assesment) Heart Score Heart Score: Heart Score Response (Comments) Value History Moderate Suspicious 1 EKG Normal 0 Age >65 2 Risk Factors >3 or Hx ASHD 2 Troponin Normal limit 0 Total 5 I personally scribed for LEIZABETH MORENO MD ([email or web address]) on 05/03/24 at 18:30. Electronically submitted by Yumi Sharma ([email or web address]). ELIZABETH MORENO MD May 03, 2024 18:30
[2024-05-03 18:44] LABS: Basophils # (auto) 0 10 ^3/uL (0-0.2); Basophils % (auto) 0.9 % (0.0-2.0); Eosinophils # (auto) 0.1 10 ^3/uL (0-0.8); Eosinophils % (auto) 1.3 % (0.0-7.0); Hematocrit 40.3 % (36.0-46.0); Hemoglobin 13.5 g/dL (12.2-16.2); Lymphocytes # (auto) 1.6 10 ^3/uL (0.4-5.4); Lymphocytes % (auto) 30.3 % (10.0-50.0); Mean Corpuscular Hemoglobin 27.7 pg (28.0-32.0); Mean Corpuscular Hgb Conc. 33.4 g/dL (32.0-36.0); Mean Corpuscular Volume 82.9 fL (80.0-100.0); Monocytes # (auto) 0.4 10 ^3/uL (0-1.3); Monocytes % (auto) 7.4 % (0.0-12.0); Neutrophils # (auto) 3.2 10 ^3/uL (1.6-8.6); Neutrophils % (auto) 60.1 % (37.0-80.0); Nucleated Red Blood Cells % 0.1 %; Platelet Count (auto) 225 10^3/uL (140-450); Red Blood Cells 4.86 10^6/uL (4.0-5.20); Red Cell Distribution Width 15.6 % (11.8-14.3); White Blood Cell 5.4 10^3/uL (4.4-10.8)
--- NOTE | 2024-05-03 19:00 | ECG ---
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
[2024-05-03 19:08] LABS: Chloride 105 mmol/L (98-107); Potassium 3.9 mmol/L (3.5-5.1); Sodium 138 mmol/L (136-145)
[2024-05-03 19:09] LABS: Anion Gap 4 (5-15); Calcium 9.5 mg/dL (8.7-10.4); Carbon Dioxide 29 mmol/L (20-31)
[2024-05-03 19:14] LABS: BUN/Creatinine Ratio 14.8 (10.0-20.0); Blood Urea Nitrogen 12 mg/dL (9-23); Glucose 215 mg/dL (74-106)
[2024-05-03] MEDS ORDERED: DEXTROSE (50%) 50ML SYRG IV PRN (22:30)
--- NOTE | 2024-05-03 22:48 | DVHHP2 ---
History of Present Illness Reason for Visit: Chest pain History of Present Illness 64-year-old female presents for evaluation of chest pain. Patient endorses a one day history of substernal sharp pain nonradiating. She associates having nausea without emesis. Denies shortness or breath. No cough or fever. No GI or symptoms. Past Medical History Hypertension, depression Past Surgical History BTL,, , cholecystectomy Family History Diabetes mellitus and heart disease Smoke: No ALCOHOL: none Drugs: None Lives: with Family Review of Systems Review of Systems Review of systems are currently negative otherwise addressed in HPI. Allergies: Coded Allergies: Indomethacin (Verified Allergy, Unknown, 12/21/09) Sulfa Drugs (Verified Allergy, Unknown, 12/21/09) Exam Vital Signs Vital Signs Date Time Temp Pulse Resp B/P (MAP) Pulse Ox O2 Delivery O2 Flow Rate FiO2 05/03/24 18:59 77 05/03/24 18:10 98.4 18 130/84 (99) 99 Exam Gen: 64-year-old female in no apparent distress, morbidly obese Skin: Warm, dry, normal color and texture, no rash. HEENT: Normocephalic atraumatic, mucous membranes moist and pink. Neck: Cervical and supraclavicular nodes normal without enlargement, trachea is midline, thyroid gland is normal without masses. Pulmonary: Clear to auscultation and percussion bilaterally. Cardiac: Regular rate and rhythm. No murmur Abdomen: Soft, nontender, nondistended, bowel sounds present all 4 quadrants, no guarding, no rigidity, no organomegaly. Extremities: No cyanosis, clubbing, no edema Neuro: Cranial nerves II through XII grossly intact, normal affect and speech, no focal motor deficits. Labs/Xrays ORDERING PHYSICIAN: BULMARO WILLSON RESIDENT PROCEDURE(s): ECIDC - ECHO 2D MODE CARDIAC DOP REASON: acute chest pain ORDER NUMBER(s): [id number], ACCESSION NUMBER(s): [id number] APPROVED REPORT EXAM: Two-dimensional and M-mode echocardiogram with Doppler and color Doppler. Blood Pressure: 107/64 mmHg INDICATION acute chest pain RISK FACTORS Obesity: Height: 5'4, Weight: 303 DIMENSIONS LVDd 4.6 (3.8-5.7cm) LA (2D) (1.9-4.0cm) Aortic Root (2.0-3.7cm) LVDs 2.5 (2.5-4.0cm) LA (MM) (1.9-4.0cm) Aortic Cusp Exc (1.5- 2.0cm) EF (%) 60.0 (55-70%) Rt. Atrium (1.9-4.0cm) Asc. Aorta 3.2 cm IVSd 1.3 (0.7-1.1cm) RV (D) (1.8-2.4cm) PWd 0.9 (0.7-1.1cm) Mitral Valve Mitral Mitral Stenosis E wave 0.95m/s MV Mean GR. mmHg A wave 1.46m/s MV Peak GR. mmHg E/A ratio 0.7 2D MVA cm2 DECEL Time 175ms PRESS 1/2 Time ms Aortic Valve Aortic Valve Aortic Stenosis V1 1.26m/s AO Mean GR. 22mmHg V2 3.35m/s AO Peak GR. 41mmHg LVOT Diameter 1.9 (1.8-2.4cm) Doppler LISA 1.07cm2 Pulmonic Valve V2 1.12m/s Other Information Quality : Limited Rhythm : Technically limited study due to pt laying on back Conclusion Normal left ventricular size and dimension. Normal left ventricular systolic function estimated ejection fraction 55%. There is a grade 1 diastolic dysfunction. Normal right ventricular size and dimension. Normal right ventricular systolic function. Normal biatrial size and dimension. The aortic valve is cnjc-ow-drxzicqubb thickened, there is mild aortic valve calcification, is [id number] aortic valve stenosis with a peak gradient of44 and mean gradient of22 mm of mercury Normal mitral valve structure and function. Normal tricuspid valve structure and function. The pulmonary valve is grossly normal. No pericardial effusion. SIGNED BY: MEE REGAN MD SIGNED DATE/TIME: 03/09/24 1231 CC: Labs Test 05/03/24 19:33 05/03/24 18:30 Range/Units Troponin I High Sensitivity < 3 L </=34 ng/L White Blood Count 5.4 4.4-10.8 10^3/uL Red Blood Count 4.86 4.0-5.20 10^6/uL Hemoglobin 13.5 12.2-16.2 g/dL Hematocrit 40.3 36.0-46.0 % Mean Corpuscular Volume 82.9 80.0-100.0 fL Mean Corpuscular Hemoglobin 27.7 L 28.0-32.0 pg Mean Corpuscular Hemoglobin Concent 33.4 32.0-36.0 g/dL Red Cell Distribution Width 15.6 H 11.8-14.3 % Platelet Count 225 140-450 10^3/uL Mean Platelet Volume 7.9 6.9-10.8 fL Neutrophils (%) (Auto) 60.1 37.0-80.0 % Lymphocytes (%) (Auto) 30.3 10.0-50.0 % Monocytes (%) (Auto) 7.4 0.0-12.0 % Eosinophils (%) (Auto) 1.3 0.0-7.0 % Basophils (%) (Auto) 0.9 0.0-2.0 % Neutrophils # (Auto) 3.2 1.6-8.6 10 ^3/uL Lymphocytes # (Auto) 1.6 0.4-5.4 10 ^3/uL Monocytes # (Auto) 0.4 0-1.3 10 ^3/uL Eosinophils # (Auto) 0.1 0-0.8 10 ^3/uL Basophils # (Auto) 0 0-0.2 10 ^3/uL Nucleated Red Blood Cells 0.1 % Sodium Level 138 136-145 mmol/L Potassium Level 3.9 3.5-5.1 mmol/L Chloride Level 105 98-107 mmol/L Carbon Dioxide Level 29 20-31 mmol/L Anion Gap 4 L 5-15 Blood Urea Nitrogen 12 9-23 mg/dL Creatinine 0.81 0.550-1.02 mg/dL Glomerular Filtration Rate Calc 81 >90 mL/min BUN/Creatinine Ratio 14.8 10.0-20.0 Serum Glucose 215 H 74-106 mg/dL Calcium Level 9.5 8.7-10.4 mg/dL B-Type Natriuretic Peptide 7.08 0-100 pg/mL Assessment/Plan Assessment/Plan Assessment Unstable angina Diabetes mellitus Hypertension Morbid obesity Admit the patient to telemetry Cardiology consultation Resume medications Continue treatment per orders. Plan discussed with: Patient My Orders Orders - HUBER REARDON Procedure Category Date Status Time D-Dimer LAB 05/03/24 Logged 22:25 Lisinopril Tablet PHA 05/04/24 Transmitted (Zestril Tablet) 10:00 Fluoxetine Capsule PHA 05/04/24 Transmitted (Prozac Capsule) 10:00 Gabapentin Capsule PHA 05/04/24 Transmitted (Neurontin Capsule) 06:00 * Cardiology Consult CONS 05/03/24 Transmitted 22:25 Glucose Blood PHA 05/04/24 Transmitted (Accu-Chek Comfort 00:00 Mild Sliding Scale PHA 05/04/24 Transmitted Npo - Q6hr 00:00 Dextrose 50% Syringe PHA 05/03/24 Transmitted 22:30 Admit ADMIT 05/03/24 Transmitted 22:25 Temazepam (Restoril) PHA 05/03/24 Transmitted 22:30 Ondansetron Hcl PHA 05/03/24 Transmitted (Zofran) 22:30 Cardiac DIET 05/04/24 Transmitted Diet-2gna,Lofat,Lochol Breakfast Condition: Fair RAE 05/03/24 In Process 22:25 Acetaminophen Tablet [facility] 05/03/24 Transmitted (Tylenol Tablet) 22:30 Bedrest With Bathroom RAE 05/03/24 In Process Privileg 22:25 Nitroglycerin [facility] 05/03/24 Transmitted Sublingual (Ntrostat 22:30 Morphine Sulfate PHA 05/03/24 Transmitted Injection 22:30 Stat Ekg For Chest [facility] 05/03/24 In Process Pain 22:25 Notify Md Of Changes [facility] 05/03/24 In Process From Base 22:25 Flag Signalman For [facility] 05/03/24 In Process 24 Hours 22:25 Emergency Dysrhythmia [facility] 05/03/24 In Process Protocol 22:25 Rhythm Strips Once [facility] 05/03/24 In Process Every Shift 22:25 Oxygen By Nasal RT 05/03/24 Transmitted Cannula 22:25 Date of Service: May 03, 2024 Billing Provider: HUBER REARDON Common Visit Codes: [id number] INP/OBS CARE (HIGH) HUBER REARDON May 03, 2024 22:48
--- NOTE | 2024-05-03 23:39 | DVH ---
EXAMINATION: AP portable chest radiograph CLINICAL HISTORY: cp COMPARISON: XY CHEST PORTABLE on DOS: 04/27/24 FINDINGS: Prominence of the cardiac silhouette may be in part exaggerated by technique. No dominant consolidation. No sizable pleural effusions or pneumothorax. IMPRESSION: No acute cardiopulmonary findings as visualized. Enlarged cardiac silhouette may be in part exaggerated by technique.
[2024-05-04] VITALS (7 sets, daily range): BP systolic 100–121; BP diastolic 49–62; PULSE 70–87; RESP 13–20; TEMP 98–98.2; O2SAT 93–99
[2024-05-04] MEDS: ONDANSETRON HCL 4 MG/2 ML VIAL IV ONE (01:03)
[2024-05-04] MEDS: MORPHINE SULFATE 4 MG/ML SYR/VIAL IV ONE (01:04)
[2024-05-04] MEDS: ACCU-CHEK COMFORT CURVE STRIP VI SCH (01:04)
[2024-05-04] MEDS: InsuLIN REG 1unit/0.01ml Soln (100units/ml) SC SCH (01:04)
[2024-05-04] MEDS: MELATONIN 5 MG TAB PO ONE (01:37)
[2024-05-04 01:48] LABS: Urine Bacteria None Seen /hpf (None Seen)
[2024-05-04 02:01] LABS: Urine Blood Negative /uL (Negative); Urine Budding Yeast MODERATE /hpf (None Seen); Urine Clarity Turbid (Clear); Urine Color Light-Yellow (Yellow); Urine Mucus FEW (None Seen); Urine Protein, UAD Negative (Negative); Urine Specific Gravity 1.018 (1.001-1.035); Urine Urobilinogen Normal (Negative); Urine WBC 38 /hpf (0 - 5); Urine pH 5.5 (5.0-9.0)
[2024-05-04] MEDS: MORPHINE SULFATE INJ 2 MG/ml SYRG IV PRN (02:41)
[2024-05-04] MEDS: ONDANSETRON HCL 4 MG/2 ML VIAL IV PRN (02:42)
[2024-05-04] MEDS: TEMAZEPAM 15 MG CAP PO PRN (02:52)
[2024-05-04] MEDS: GABAPENTIN 300 MG CAP PO SCH (06:05)
[2024-05-04] MEDS: ACETAMINOPHEN 325 MG TAB PO PRN (06:35)
[2024-05-04] MEDS: NITROGLYCERIN 0.4 MG SL TAB SL PRN (06:35)
[2024-05-04] MEDS: FLUoxetine HCL 20 MG CAP PO SCH (10:00)
[2024-05-04] MEDS: LISINOPRIL 5 MG TAB PO SCH (10:00)
[2024-05-04] MEDS: ASPirin 81 mg TAB PO SCH (10:00)
--- NOTE | 2024-05-04 10:31 | DVHINCON2 ---
Date Seen: May 04, [address] Kuo Reason for Consultation Chest pain History of Present Illness 64-year-old female patient with past medical history of hypertension, depression, sleep apnea, hypercholesterolemia, type 2 diabetes, ulcerative colitis and heart failure with preserved ejection fraction who presented to the hospital with a chief complaint of chest pain. She describes the chest pain as substernal and nonradiating, accompanied by shortness of breath but without coughing or fever. The pain is localized in the middle of the chest and is triggered by physical activity, particularly with a long distance walking.The patient reports that she underwent an angiogram on january and stress test on august, both of which were normal. Today's initial workup includes BNP, troponin levels and chest x-ray were unremarkable and vital signs were stable. Recent echocardiogram showed a left ventricular ejection fraction of 55%. This patient's presentation of exertional chest pain, with a history of prior negative angiogram and stress test and current normal lab and imaging results suggest a noncardiac cause of her symptoms though ischemia she will be ruled out given her cardiac history. Past Medical History Heart failure preserved ejection fraction 55% hypertension depression sleep apnea hypercholesterolemia type 2 diabetes ulcerative colitis Family History: Colon cancer G8 MOTHER, Depression G8 MOTHER, Diabetes mellitus G8 MOTHER, G8 BROTHER Family history: Diabetes mellitus G8 MOTHER, (mother) G8 BROTHER (older brother) Family history: Hypertension G8 BROTHER (brothers) Ischemic heart disease G8 MOTHER, Prostate carcinoma G8 FATHER, Allergies: Coded Allergies: Indomethacin (Verified Allergy, Unknown, 12/21/09) Sulfa Drugs (Verified Allergy, Unknown, 12/21/09) Home Meds Active Scripts Ciprofloxacin Hcl (Cipro) 500 Mg Tab, 1 TAB PO BID, #20 TAB Prov:CECILIA BRITO MD 04/30/24 Morphine Sulfate (Morphine Sulfate) 15 Mg Tab, 1 TAB PO QID for 1 Day, #4 TAB Prov:MOUNIKA TILLMAN MD 04/20/24 Hydrocodone-Acetaminophen (Hydrocodone Bitartrate/AC 5-325 mg) 1 Tab Tab, 1 TAB PO Q8HPRN PRN for 1 Day, #3 TAB Prov:MOUNIKA TILLMAN MD 04/20/24 Docusate Sodium (Docusate Sodium) 100 Mg Cap, 100 MG PO BIDPRN PRN for 15 Days, #15 CAP Prov:MOUNIKA TILLMAN MD 04/20/24 Fluticasone Propionate (Nasal) (Fluticasone Propionate) 50 Mcg/Act Spr, 50 MCG EACHNOSTRI Q12HR for 30 Days, #2 SPRAY Prov:MOUNIKA TILLMAN MD 04/17/24 Insulin Regular (Human) (Novolin R Flexpen) 100 Unit/Ml Inj, 15 UNIT IJ TID for 28 Days, #100 INJ 15 units before meals, cheack blood sugar 2 hours after meal and add sliding scale Prov:MOUNIKA TILLMAN MD 04/17/24 Insulin Glargine (Lantus Solostar) 100 Unit/Ml Inj, 90 UNITS SC DAILY for 28 Days, #30 INJ Prov:MOUNIKA TILLMAN MD 04/17/24 Dicyclomine Hcl (BENTYL CAPSULE) 10 Mg Cp, 1 CAP PO TID, #30 CAP 11 Refills Prov:MARLI BARAJAS MD 07/09/23 Reported Medications Omeprazole (Gnp Omeprazole) 20 Mg Tab, 20 MG PO DAILY, TAB 04/15/24 Gabapentin (Gabapentin) 300 Mg Cap, 1 CAP PO TID 04/15/24 Uinwztclkntcn-Bvcskxadeav-Tkqq (Phenobarbital/Hyoscyamine 16.2 mg) 1 Tab Tab, 1 TAB PO TID 04/15/24 Ondansetron HCl (Ondansetron) 4 Mg Tab, 4 MG PO DAILY PRN for NAUSEA 07/15/23 Zolpidem Tartrate (Zolpidem Tartrate) 10 Mg Tab, 1 TAB PO HS 07/15/23 Pitolisant Hydrochloride (Wakix) 17.8 Mg Tab, 1 TAB PO BID for NARCOLEPSY for 90 Days, #180 11/02/21 Fluoxetine Hcl (Fluoxetine Hcl) 20 Mg Cap, 40 MG PO DAILY for 30 Days, MG 08/25/17 Lisinopril (Lisinopril) 10 Mg Tab, 10 MG PO DAILY for 30 Days, MG 07/26/16 Current Medications Current Medications Medications (Trade) Dose Ordered Sig/Feng Route PRN Reason Start Time Stop Time Status Last Admin Lisinopril (Zestril Tablet) 10 mg DAILY PO 05/04/24 10:00 Fluoxetine HCl (PROzac CAPSULE) 20 mg DAILY PO 05/04/24 10:00 Gabapentin (Neurontin Capsule) 300 mg TID PO 05/04/24 06:00 05/04/24 06:05 Diagnostic Test (Pha) (Accu-Chek Comfort Curve T) 1 strip Q6HR 05/04/24 00:00 05/04/24 06:05 Insulin Human Regular (InsuLIN R) Q6HR SC 05/04/24 00:00 Dextrose 50 ml UD PRN IV Blood Sugar LESS THAN 60 05/03/24 22:30 Temazepam (Restoril) 15 mg QHSP PRN PO FOR INSOMNIA 05/03/24 22:30 05/04/24 02:52 Ondansetron HCl (Zofran) 4 mg Q4HP PRN IV NAUSEA / VOMITING 05/03/24 22:30 05/04/24 02:42 Acetaminophen (Tylenol Tablet) 650 mg Q6HP PRN PO PAIN SCALE 1-3 OR TEMP>100.4 05/03/24 22:30 05/04/24 06:35 Nitroglycerin (Ntrostat Sublingual) 0.4 mg Q5MINP PRN SL FOR CHEST PAIN 05/03/24 22:30 05/04/24 06:35 Morphine Sulfate 2 mg Q30M PRN IV FOR CHEST PAIN 05/03/24 22:30 Aspirin 162 mg DAILY PO 05/04/24 10:00 Atorvastatin Calcium (Lipitor) 10 mg HS PO 05/04/24 22:00 Review of Systems Constitutional: No: Fever, Chills, Sweats, Weakness, Malaise, Other Eyes: No: Pain, Vision change, Conjunctivae inflammation, Eyelid inflammation, Other, Redness ENT: No: Ear pain, Ear discharge, Nose pain, Nose discharge, Nose congestion, Mouth pain, Mouth swelling, Throat pain, Throat swelling, Other Respiratory: No Wheezing, Hemoptysis, Pleuritic Pain, Sputum, Wheezing, Other Cardiovascular: Yes: Chest pain, dyspnea on exertion No: Palpitations, Or thopnea, Paroxysmal Noc. Dyspnea, Edema, Lt Headedness, Other Gastrointestinal: No: Nausea, Vomiting, Abdominal Pain, Diarrhea, Constipation, Melena, Hematochezia, Other Musculoskeletal: No: other, neck pain, shoulder pain, arm pain, back pain, hand pain, leg pain, foot pain Neurological:; No: Weakness, Numbness, Incoordination, Change in speech, Confusion, Seizures Vital Signs Vital Signs Date Time Temp Pulse Resp B/P (MAP) Pulse Ox O2 Delivery O2 Flow Rate FiO2 05/04/24 09:28 90 05/04/24 07:35 104/48 05/04/24 07:30 13 93 Room Air* 0 21 05/04/24 07:30 98.2 98.2 Physical Exam Examination General Appearance: Alert, Oriented X3, Cooperative, No acute distress HEENT: EOMI Respiratory: Clear to auscultation, Normal air movement Cardiovascular: Regular rate, Normal S1, Normal S2 Abdominal: Normal bowel sounds Extremities: No cyanosis, No edema, Normal pulses, No tenderness/swelling Skin: No rashes, No breakdown Neuro: Normal gait, Normal speech, Strength at 5/5 X4 ext, Normal tone, Sensation intact, Cranial nerves 3-12 NL, Reflexes 2+ Psych/Mental Status: Mental status NL, Mood NL Labs/Diagnostic Data Labs Test 05/04/24 06:04 05/03/24 23:50 05/03/24 22:45 05/03/24 18:30 Range/Units POC Glucose 110 H 70-106 mg/dl D-Dimer, Quantitative 0.36 0.0-0.49 mg/L FEU Troponin I High Sensitivity < 3 L </=34 ng/L Urine Color Light-yellow Yellow Urine Clarity Turbid H Clear Urine pH 5.5 5.0-9.0 Urine Specific [place] 1.018 1.001-1.035 Urine Protein Negative Negative Urine Ketones Negative Negative Urine Blood Negative Negative /uL Urine Nitrite Negative Negative Urine Bilirubin Negative Negative Urine Urobilinogen Normal Negative mg/dL Urine Leukocyte Esterase 2+ Negative /uL Urine RBC 3 0 - 4 /hpf Urine WBC 38 0 - 5 /hpf Urine Squamous Epithelial Cells Mod <5 /hpf Urine Bacteria None seen None Seen /hpf Urine Mucus Few None Seen Urine Yeast (Budding) Moderate None Seen /hpf Urine Glucose Trace Normal mg/dL White Blood Count 5.4 4.4-10.8 10^3/uL Red Blood Count 4.86 4.0-5.20 10^6/uL Hemoglobin 13.5 12.2-16.2 g/dL Hematocrit 40.3 36.0-46.0 % Mean Corpuscular Volume 82.9 80.0-100.0 fL Mean Corpuscular Hemoglobin 27.7 L 28.0-32.0 pg Mean Corpuscular Hemoglobin Concent 33.4 32.0-36.0 g/dL Red Cell Distribution Width 15.6 H 11.8-14.3 % Platelet Count 225 140-450 10^3/uL Mean Platelet Volume 7.9 6.9-10.8 fL Neutrophils (%) (Auto) 60.1 37.0-80.0 % Lymphocytes (%) (Auto) 30.3 10.0-50.0 % Monocytes (%) (Auto) 7.4 0.0-12.0 % Eosinophils (%) (Auto) 1.3 0.0-7.0 % Basophils (%) (Auto) 0.9 0.0-2.0 % Neutrophils # (Auto) 3.2 1.6-8.6 10 ^3/uL Lymphocytes # (Auto) 1.6 0.4-5.4 10 ^3/uL Monocytes # (Auto) 0.4 0-1.3 10 ^3/uL Eosinophils # (Auto) 0.1 0-0.8 10 ^3/uL Basophils # (Auto) 0 0-0.2 10 ^3/uL Nucleated Red Blood Cells 0.1 % Sodium Level 138 136-145 mmol/L Potassium Level 3.9 3.5-5.1 mmol/L Chloride Level 105 98-107 mmol/L Carbon Dioxide Level 29 20-31 mmol/L Anion Gap 4 L 5-15 Blood Urea Nitrogen 12 9-23 mg/dL Creatinine 0.81 0.550-1.02 mg/dL Glomerular Filtration Rate Calc 81 >90 mL/min BUN/Creatinine Ratio 14.8 10.0-20.0 Serum Glucose 215 H 74-106 mg/dL Calcium Level 9.5 8.7-10.4 mg/dL B-Type Natriuretic Peptide 7.08 0-100 pg/mL Assessment Acute chest pain likely musculoskeletal. Chronic diastolic heart failure EF 55% NYHA ll Morbid obesity Urinary tract infection Primary hypertension Plan/Recommendation Symptomatic treatment for chest pain likely musculoskeletal. Recent angiogram and stress test were negative. Troponin levels and EKG were unremarkable Follow-up with cardiology in the outpatient. Thank you for allowing us participate in this case. There is no further workup indicated at this time, we are signing off. Case discussed with Critical care, time spent: 49 minutes. Plan discussed with: Patient Date of Service: May 04, 2024 Billing Provider: MEE REGAN MD Cardiology Common Codes: 11920-[id number] INP/OBS CARE (High) GERRY TORRES RESIDENT May 04, 2024 10:31
[2024-05-04 12:16] LABS: Triglycerides 128 mg/dL (< 150)
[2024-05-04 12:17] LABS: LDL Cholesterol 89 mg/dL (< 100)
[2024-05-04 12:18] LABS: Cholesterol 137 mg/dL (< 200); HDL Cholesterol 42 mg/dL (40-59)
[2024-05-04] MEDS: ATORVASTATIN 20 MG TAB PO SCH (13:12)
[2024-05-04] MEDS: cefTRIAXone 1GM/50ML D5W 50 ML IV ONE (13:13)
--- NOTE | 2024-05-04 14:43 | ECG ---
[facility] Test Date: 2024-05-03 Test Time: 18:08:37 Pat Name: ELVIS CONCEPCION Department: ER Room: [address] [place] [address] Gender: F Adult Parole Officer: JEANNETTE : 1960 Requested By: ELIZABETH MORENO Order Number: [id number] Reading MD: Measurements Intervals [place] Rate: 83 P: 60 SD: 164 QRS: -58 QRSD: 86 T: 52 QT: 375 QTc: 441 Interpretive Statements Sinus rhythm Left anterior fascicular block Abnormal R-wave progression, late transition Please click the below link to view image of tracing.
[2024-05-04] MEDS: FLUCONAZOLE 100 MG TAB PO ONE (14:53)
--- NOTE | 2024-05-04 15:34 | DVHPN2 ---
Subjective Patient was still reports having intermittent substernal chest pain Reviewed: Care Plan, H&P, Labs, Medications Changes from previous H/P or p: No Changes General: Per HPI Objective Vitals Vital Signs Date Time Temp Pulse Resp B/P (MAP) Pulse Ox O2 Delivery O2 Flow Rate FiO2 05/04/24 11:00 84 15 106/59 (75) 90 05/04/24 07:30 Room Air* 0 21 05/04/24 07:30 98.2 98.2 General Appearance: Alert, Oriented X3, Cooperative, No acute distress HEENT: Atraumatic, PERRLA, EOMI Lungs: Clear to auscultation, Normal air movement Cardiovascular: Normal S1, Normal S2 Abdomen: Normal bowel sounds Rectal: Normal inspection Musculoskeletal: Normal sensory function, Normal motor function Extremities: No clubbing, No cyanosis Neuro: Normal speech, Strength at 5/5 X4 ext Psych/Mental Status: Mental status NL, Mood NL Medications Current Medications Medications Dose Ordered Sig/Feng Route Start Time Stop Time Status Last Admin Dose Admin Lisinopril 10 mg DAILY PO 05/04/24 10:00 05/04/24 10:00 10 MG Fluoxetine HCl 20 mg DAILY PO 05/04/24 10:00 05/04/24 10:00 20 MG Gabapentin 300 mg TID PO 05/04/24 06:00 05/04/24 14:53 300 MG Diagnostic Test (Pha) 1 strip Q6HR 05/04/24 00:00 05/04/24 11:43 1 STRIP Insulin Human Regular Q6HR SC 05/04/24 00:00 05/04/24 11:43 2 UNITS Dextrose 50 ml UD PRN IV 05/03/24 22:30 Temazepam 15 mg QHSP PRN PO 05/03/24 22:30 05/04/24 02:52 15 MG Ondansetron HCl 4 mg Q4HP PRN IV 05/03/24 22:30 05/04/24 02:42 4 MG Acetaminophen 650 mg Q6HP PRN PO 05/03/24 22:30 05/04/24 06:35 650 MG Nitroglycerin 0.4 mg Q5MINP PRN SL 05/03/24 22:30 05/04/24 06:35 0.4 MG Morphine Sulfate 2 mg Q30M PRN IV 05/03/24 22:30 Aspirin 162 mg DAILY PO 05/04/24 10:00 05/04/24 10:00 162 MG Ceftriaxone Sodium 50 ml @ 100 mls/hr DAILY@09 IV 05/05/24 09:00 Atorvastatin Calcium 40 mg HS PO 05/04/24 11:30 05/04/24 13:12 40 MG Fluconazole 100 mg DAILY PO 05/05/24 10:00 Laboratory Results Laboratory Tests 05/03/24 18:30 Chemistry Test 05/03/24 18:30 Calcium Level 9.5 mg/dL (8.7-10.4) Coagulation Test 05/03/24 23:50 D-Dimer, Quantitative 0.36 mg/L FEU (0.0-0.49) Lipid panel Test 05/04/24 11:46 Cholesterol Level 137 mg/dL (< 200) HDL Cholesterol 42 mg/dL (40-59) Triglycerides Level 128 mg/dL (< 150) Cardiac Markers Test 05/03/24 18:30 B-Type Natriuretic Peptide 7.08 pg/mL (0-100) HgA1c, TSH Test 05/04/24 11:46 Thyroid Stimulating Hormone (TSH) 0.53 uIU/mL (0.55-4.78) L Urinalysis Test 05/03/24 22:45 Urine Color Light-yellow (Yellow) Urine Clarity Turbid (Clear) H Urine pH 5.5 (5.0-9.0) Urine Specific [place] 1.018 (1.001-1.035) Urine Protein Negative (Negative) Urine Ketones Negative (Negative) Urine Blood Negative /uL (Negative) Urine Nitrite Negative (Negative) Urine Bilirubin Negative (Negative) Urine Urobilinogen Normal mg/dL (Negative) Urine Leukocyte Esterase 2+ /uL (Negative) Urine RBC 3 /hpf (0 - 4) Urine WBC 38 /hpf (0 - 5) Urine Squamous Epithelial Cells Mod /hpf (<5) Urine Bacteria None seen /hpf (None Seen) Urine Mucus Few (None Seen) Urine Yeast (Budding) Moderate /hpf (None Seen) Urine Glucose Trace mg/dL (Normal) Labs and/or images reviewed: Labs reviewed by me, Image(s) reviewed by me Assessment/Plan Assessment/Plan Impression: -chest pain, questionably costochondritis -obesity -depression -anxiety disorder -UTI -primary hypertension -chronic diastolic heart failure Plan: -start Diflucan -cardiology consultation: Patient had left heart catheterization in February the . Normal coronaries. Echocardiogram at that time with ejection fraction 55% and diastolic heart failure -trial of Toradol -check inflammatory markers -continue antianxiety medication -reassess for discharge in a.m. Total time spent with patient discussing and formulating plan of care: 35 minutes. This medical document was created using an electronic medical record system with [employer] dictation system. Although this document has been carefully reviewed, there may still be some phonetic and typographical errors. These areas are purely typographical due to imperfections of the software programs, and do not reflect any compromise in the patient's medical care. Plan discussed with: Patient, Other (RN) My Orders Orders - JUSTIN ONTIVEROS NP Procedure Category Date Status Time Erythrocyte LAB 05/04/24 Logged Sedimentation Rate 14:09 Fluconazole Tablet PHA 05/05/24 In Process (Diflucan Tablet) 10:00 Ketorolac Injection PHA 05/04/24 Logged (Toradol Injection) 15:30 Date of Service: May 04, 2024 Billing Provider: JUSTIN ONTIVEROS NP Common Visit Codes: [id number] INP/OBS CARE(HIGH) JUSTIN ONTIVEROS NP May 04, 2024 15:34
[2024-05-04] MEDS: KETOROLAC TROMETH 30 MG/ML 1ML VIAL IV ONE (16:18)
[2024-05-04 17:30] LABS: Erythrocyte Sedimentation Rate 5 mm/hr (0-20)
[2024-05-04] MEDS: HYDROcodone-ACET 7.5/325MG TAB PO PRN (21:48)
[2024-05-04] MEDS: ZOLPIDEM TARTRATE 5 MG TAB PO ONE (21:54)
[2024-05-04] MEDS ORDERED: ATORVASTATIN 20 MG TAB PO SCH (22:00)
[2024-05-05] VITALS (9 sets, daily range): BP systolic 93–143; BP diastolic 49–68; PULSE 64–82; RESP 17–20; TEMP 36.4; O2SAT 92–98
[2024-05-05] MEDS: guaiFENesin-DM 100/10mg/5ml SYR PO PRN (04:21)
[2024-05-05] MEDS: traMADol HCL 50 MG TAB PO PRN (04:22)
[2024-05-05] MEDS: cefTRIAXone 1GM/50ML D5W 50 ML IV SCH (10:38)
[2024-05-05] MEDS: FLUCONAZOLE 100 MG TAB PO SCH (10:40)
[2024-05-05] MEDS ORDERED: IBUP-1455 PO (10:42)
--- NOTE | 2024-05-05 10:47 | DVHDS2 ---
Discharge Summary Date of Admission May 03, 2024 at 22:25 Date of Discharge: May 05, 2024 Admitting Diagnosis Unstable angina Labs/Diagnostic Data: Laboratory Results Test 05/05/24 05:46 05/04/24 15:36 05/04/24 11:46 05/03/24 23:50 POC Glucose 138 mg/dl (70-106) Erythrocyte Sedimentation Rate 5 mm/hr (0-20) C-Reactive Protein High Sensitivity 0.57 mg/dL (<1.0) Triglycerides Level 128 mg/dL (< 150) Cholesterol Level 137 mg/dL (< 200) LDL Cholesterol 89 mg/dL (< 100) HDL Cholesterol 42 mg/dL (40-59) Thyroid Stimulating Hormone (TSH) 0.53 uIU/mL (0.55-4.78) D-Dimer, Quantitative 0.36 mg/L FEU (0.0-0.49) Troponin I High Sensitivity < 3 ng/L (</=34) Test 05/03/24 22:45 05/03/24 18:30 Urine Color Light-yellow (Yellow) Urine Clarity Turbid (Clear) Urine pH 5.5 (5.0-9.0) Urine Specific [place] 1.018 (1.001-1.035) Urine Protein Negative (Negative) Urine Ketones Negative (Negative) Urine Blood Negative /uL (Negative) Urine Nitrite Negative (Negative) Urine Bilirubin Negative (Negative) Urine Urobilinogen Normal mg/dL (Negative) Urine Leukocyte Esterase 2+ /uL (Negative) Urine RBC 3 /hpf (0 - 4) Urine WBC 38 /hpf (0 - 5) Urine Squamous Epithelial Cells Mod /hpf (<5) Urine Bacteria None seen /hpf (None Seen) Urine Mucus Few (None Seen) Urine Yeast (Budding) Moderate /hpf (None Seen) Urine Glucose Trace mg/dL (Normal) White Blood Count 5.4 10^3/uL (4.4-10.8) Red Blood Count 4.86 10^6/uL (4.0-5.20) Hemoglobin 13.5 g/dL (12.2-16.2) Hematocrit 40.3 % (36.0-46.0) Mean Corpuscular Volume 82.9 fL (80.0-100.0) Mean Corpuscular Hemoglobin 27.7 pg (28.0-32.0) Mean Corpuscular Hemoglobin Concent 33.4 g/dL (32.0-36.0) Red Cell Distribution Width 15.6 % (11.8-14.3) Platelet Count 225 10^3/uL (140-450) Mean Platelet Volume 7.9 fL (6.9-10.8) Neutrophils (%) (Auto) 60.1 % (37.0-80.0) Lymphocytes (%) (Auto) 30.3 % (10.0-50.0) Monocytes (%) (Auto) 7.4 % (0.0-12.0) Eosinophils (%) (Auto) 1.3 % (0.0-7.0) Basophils (%) (Auto) 0.9 % (0.0-2.0) Neutrophils # (Auto) 3.2 10 ^3/uL (1.6-8.6) Lymphocytes # (Auto) 1.6 10 ^3/uL (0.4-5.4) Monocytes # (Auto) 0.4 10 ^3/uL (0-1.3) Eosinophils # (Auto) 0.1 10 ^3/uL (0-0.8) Basophils # (Auto) 0 10 ^3/uL (0-0.2) Nucleated Red Blood Cells 0.1 % Sodium Level 138 mmol/L (136-145) Potassium Level 3.9 mmol/L (3.5-5.1) Chloride Level 105 mmol/L (98-107) Carbon Dioxide Level 29 mmol/L (20-31) Anion Gap 4 (5-15) Blood Urea Nitrogen 12 mg/dL (9-23) Creatinine 0.81 mg/dL (0.550-1.02) Glomerular Filtration Rate Calc 81 mL/min (>90) BUN/Creatinine Ratio 14.8 (10.0-20.0) Serum Glucose 215 mg/dL (74-106) Calcium Level 9.5 mg/dL (8.7-10.4) B-Type Natriuretic Peptide 7.08 pg/mL (0-100) Other Laboratory Tests 05/03/24 18:30 Brief Hx & Hospital Course: History of Present Illness 64-year-old female presents for evaluation of chest pain. Patient endorses a one day history of substernal sharp pain nonradiating. She associates having nausea without emesis. Denies shortness or breath. No cough or fever. No GI or symptoms. Course of hospitalization: Cardiology consultation was obtained. Given her extensive workup over her multiple admissions over the past year, they signed off on the case. No changes were noted on her EKG. Troponins have been negative. Patient recently had left heart catheterization in February of this year. Patient was given a trial of IV Toradol for her questionable costochondritis. The patient does report having some relief in her chest discomfort. Patient had negative D-dimer, chest x-ray, as well as normal inflammatory markers. Her urinalysis did reveal UTI with yeast. The patient was treated with p.o. Diflucan which she will be continued with the time of discharge. The patient will also be continued on Motrin 800 mg p.o. twice a day for seven days. With respect to her allergy of indomethacin, she states, that over 15 years ago she had a headache when she took a dose of Indocin. Physical examination General: Alert and Oriented x3. No acute distress. Well-nourished. Obese Eyes: EOMI. Anicteric. HENT: Moist mucous membranes. Lungs: Clear to auscultation bilaterally. No accessory muscle use. Cardiovascular: Regular rate and rhythm. No murmur. No JVD. Abdomen: Soft, non-tender and non-distended. No palpable masses. Extremities: No edema. Non-tender. Skin: No rashes or lesions. Warm. Neurologic: No focal neurological deficits. CN II-XII grossly intact, but not individually tested. Psychiatric: Cooperative. Appropriate mood and affect. Total time spent with patient discussing and formulating plan of care: 35 minutes. This medical document was created using an electronic medical record system with [employer] dictation system. Although this document has been carefully reviewed, there may still be some phonetic and typographical errors. These areas are purely typographical due to imperfections of the software programs, and do not reflect any compromise in the patient's medical care. Consults/Reason for consult Cardiology: Chest pain Condition at Discharge: Fair Final Diagnosis/Problems List Chest pain, probably secondary to costochondritis Secondary Diagnosis: -obesity -depression -anxiety disorder -UTI -primary hypertension -chronic diastolic heart failure Discharge Disposition: Home Discharge Instruct/Medications Diet: Cardiac 2g Na,low cholest Activity: No Restrictions, As Tolerated Follow Up/Referral: Follow up with PCP in 1-2 weeks Medications: Motrin 800 mg p.o. twice a day for seven days Diflucan 100 mg p.o. daily x3 days 36 Discharge Statement: "Patient was advised to return to the ER or call 911 if any headaches, dizziness, shortness of breath, chest pain, abdominal pain, bleeding, fevers, or worsening of medical condition. Patient was counseled about treatment plan, medications, possible side effects, patientverbalized understanding. All questions were answered to the best of my ability. This discharge took greater then 30 minutes in planning, reviewing documentation, counseling the patient, and discussing with other team members." ASSESSMENT ASSESSMENT Assessment His pain, probably secondary to costochondritis Date of Service: May 05, 2024 Billing Provider: JUSTIN ONTIVEROS NP Common Visit Codes: [id number]/[id number] DISCH DAY >30min JUSTIN ONTIVEROS NP May 05, 2024 10:47
[2024-05-05] MEDS ORDERED: FLUC100T PO (10:55)
[2024-05-05] MEDS ORDERED: BACIOIN49 OP (11:10)
== END 2024-05-05 14:47 | disposition home or self-care (01) | DRG 206 ==
LOC: ER 18:06 → EDUNIT# 18:06 → EDBD 18:06 → TELE 22:25 → TELE-CENTR 05-04 23:00
PROVIDERS: ADMIT Nurse Practitioner; ATTEND Nurse Practitioner Acute Care
PROC: 5A09357 Assistance with Respiratory Ventilation, Less than 24 Consecutive Hours, Continuous Positive Airway Pressure (ICD-10-PCS; principal; 2024-05-04)
PROC: 5A09357 Assistance with Respiratory Ventilation, Less than 24 Consecutive Hours, Continuous Positive Airway Pressure (ICD-10-PCS; 2024-05-05)
DX: M94.0 Chondrocostal junction syndrome [Tietze] (principal); I50.32 Chronic diastolic (congestive) heart failure; B37.49 Other urogenital candidiasis; Z68.42 Body mass index [BMI] 45.0-49.9, adult; I11.0 Hypertensive heart disease with heart failure; E11.9 Type 2 diabetes mellitus without complications; E66.01 Morbid (severe) obesity due to excess calories; E78.00 Pure hypercholesterolemia, unspecified; I25.9 Chronic ischemic heart disease, unspecified; F32.A Depression, unspecified; F41.9 Anxiety disorder, unspecified; Z90.49 Acquired absence of other specified parts of digestive tract; Z86.73 Personal history of transient ischemic attack (TIA), and cerebral infarction without residual deficits; Z83.3 Family history of diabetes mellitus; Z82.49 Family history of ischemic heart disease and other diseases of the circulatory system; Z81.8 Family history of other mental and behavioral disorders; Z80.0 Family history of malignant neoplasm of digestive organs
CPT/HCPCS: 36415; 71045; 80048; 80061; 81001; 82962; 83880; 84443; 84484; 85025; 85379; 85652; 86141; 93005; 94660; 96365; 96375; 99291; G0378; J1815; J1885; J2405

== ENCOUNTER 2024-05-13 19:01 | Inpatient (IN) | payer MEDICARE, BC ==
[~2024-05-13] VITALS: Ht 162.6 cm; Wt 135.0 kg
[~2024-05-13 19:01] MED LIST changes: +BACIOIN49 OP; +FLUC100T PO; +IBUP-1455 PO; -OMEP20TA PO
[2024-05-13 19:51] LABS: Basophils # (auto) 0 10 ^3/uL (0-0.2); Basophils % (auto) 0.9 % (0.0-2.0); Eosinophils # (auto) 0.1 10 ^3/uL (0-0.8); Eosinophils % (auto) 1.4 % (0.0-7.0); Hematocrit 37.9 % (36.0-46.0); Hemoglobin 12.5 g/dL (12.2-16.2); Lymphocytes # (auto) 1.5 10 ^3/uL (0.4-5.4); Lymphocytes % (auto) 30.1 % (10.0-50.0); Mean Corpuscular Hemoglobin 27.2 pg (28.0-32.0); Mean Corpuscular Hgb Conc. 33.1 g/dL (32.0-36.0); Mean Corpuscular Volume 82.1 fL (80.0-100.0); Monocytes # (auto) 0.4 10 ^3/uL (0-1.3); Monocytes % (auto) 8.4 % (0.0-12.0); Neutrophils % (auto) 59.2 % (37.0-80.0); Nucleated Red Blood Cells % 0.2 %; Platelet Count (auto) 202 10^3/uL (140-450); Red Blood Cells 4.61 10^6/uL (4.0-5.20); Red Cell Distribution Width 15.3 % (11.8-14.3)
[2024-05-13 20:00] VITALS: PULSE 106; RESP 20; O2SAT 96
[2024-05-13 20:14] LABS: Acetaminophen < 2.0 UG/ML (10.0-20.0); Alanine Aminotransferase 19 U/L (7-40); Albumin 3.8 g/dL (3.2-4.8); Alkaline Phosphatase 95 U/L (46-116); Anion Gap 8 (5-15); Aspartate Aminotransferase 11 U/L (13-40); BUN/Creatinine Ratio 21.4 (10.0-20.0); Bilirubin, Total < 0.2 mg/dL (0.2-1.0); Blood Alcohol < 3.0 mg/dL (<10); Blood Urea Nitrogen 15 mg/dL (9-23); Calcium 8.9 mg/dL (8.7-10.4); Carbon Dioxide 25 mmol/L (20-31); Chloride 106 mmol/L (98-107); Glucose 217 mg/dL (74-106); Sodium 139 mmol/L (136-145); Total Protein 6.1 g/dL (5.7-8.2)
[2024-05-13 20:37] LABS: Salicylate < 3.0 mg/dL (-30)
--- NOTE | 2024-05-14 00:20 | ED.PDOC ---
History of Present Illness HPI Comments 64 y/o F, with a Hx of anxiety, depression, DM, HLD, HTN, TIA, UTI's, and morbid obesity, is BIBA for substance overdose, today. Per EMS report, patient consumed 7x 10mg Ambien tablets at around 1800, today. Patient is stated to have been prescribed medication QD to help her sleep but endorses on medication no longer being effective for the past 4-5 days prior to deciding to take aforementioned amount all at once. Patient is answering questions appropriately at time of assessment and comments on having no suicidal ideations or Hx of attempts in the past. Patient denies having any homicidal ideations, auditory/visual hallucinations, vision or speech changes, weakness, or other associated symptoms or modifiers at this time. Chief Complaint: Overdose Time Seen by MD: 19:10 Primary Care Provider: BRIDGETTE Reviewed Notes: Nurses Notes, Vice President Payer Notes, Medications, Allergies Allergies: Coded Allergies: Indomethacin (Verified Allergy, Unknown, 12/21/09) Sulfa Drugs (Verified Allergy, Unknown, 12/21/09) Home Meds Active Scripts Bacitracin-Polymyxin B (Ophth) (Bacitracin/Polymyxin B) Op Oin, 1 OIN OP BID for 7 Days, #1 OIN Apply applied to both Nares twice a day x7 Prov:JUSTIN ONTIVEROS NP 05/05/24 Fluconazole (Diflucan) 100 Mg Tab, 100 MG PO DAILY for 3 Days, #3 TAB Prov:JUSTIN ONTIVEROS NP 05/05/24 Ibuprofen Micronized (Ibuprofen) 800 Mg Tab, 800 MG PO BID for 7 Days, #14 TAB Prov:JUSTIN ONTIVEROS NP 05/05/24 Ciprofloxacin Hcl (Cipro) 500 Mg Tab, 1 TAB PO BID, #20 TAB Prov:CECILIA BRITO MD 04/30/24 Morphine Sulfate (Morphine Sulfate) 15 Mg Tab, 1 TAB PO QID for 1 Day, #4 TAB Prov:MOUNIKA TILLMAN MD 04/20/24 Hydrocodone-Acetaminophen (Hydrocodone Bitartrate/AC 5-325 mg) 1 Tab Tab, 1 TAB PO Q8HPRN PRN for 1 Day, #3 TAB Prov:MOUNIKA TILLMAN MD 04/20/24 Docusate Sodium (Docusate Sodium) 100 Mg Cap, 100 MG PO BIDPRN PRN for 15 Days, #15 CAP Prov:MOUNIKA TILLMAN MD 04/20/24 Fluticasone Propionate (Nasal) (Fluticasone Propionate) 50 Mcg/Act Spr, 50 MCG EACHNOSTRI Q12HR for 30 Days, #2 SPRAY Prov:MOUNIKA TILLMAN MD 04/17/24 Insulin Regular (Human) (Novolin R Flexpen) 100 Unit/Ml Inj, 15 UNIT IJ TID for 28 Days, #100 INJ 15 units before meals, cheack blood sugar 2 hours after meal and add sliding scale Prov:MOUINKA TILLMAN MD 04/17/24 Insulin Glargine (Lantus Solostar) 100 Unit/Ml Inj, 90 UNITS SC DAILY for 28 Days, #30 INJ Prov:MOUNIKA TILLMAN MD 04/17/24 Dicyclomine Hcl (BENTYL CAPSULE) 10 Mg Cp, 1 CAP PO TID, #30 CAP 11 Refills Prov:MARLI BARAJAS MD 07/09/23 Reported Medications Gabapentin (Gabapentin) 300 Mg Cap, 1 CAP PO TID 04/15/24 Uwcalcftlvlha-Rinatgaxqpa-Xrcp (Phenobarbital/Hyoscyamine 16.2 mg) 1 Tab Tab, 1 TAB PO TID 04/15/24 Ondansetron HCl (Ondansetron) 4 Mg Tab, 4 MG PO DAILY PRN for NAUSEA 07/15/23 Zolpidem Tartrate (Zolpidem Tartrate) 10 Mg Tab, 1 TAB PO HS 07/15/23 Pitolisant Hydrochloride (Wakix) 17.8 Mg Tab, 2 TAB PO DAILY for NARCOLEPSY for 90 Days, #180 11/02/21 Fluoxetine Hcl (Fluoxetine Hcl) 20 Mg Cap, 60 MG PO DAILY for 30 Days, MG 08/25/17 Lisinopril (Lisinopril) 10 Mg Tab, 10 MG PO DAILY for 30 Days, MG 07/26/16 Information Source: Emergency Med Personnel Mode of Arrival: EMS Severity: Moderate Timing: Hours Duration: Since onset Prehospital treatment: 12 Lead EKG, Accucheck, 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 Past Medical History PAST MEDICAL HISTORY: Anxiety, Depression, DM, High Lipids, HTN, TIA, UTI'S Past Medical History (Other): morbid obesity Surgical History: Appendectomy, BTL, Cholecystectomy, , Hernia Repair SYSTEM SAFETY ENGINEER History: No Pertinent SYSTEM SAFETY ENGINEER History Family History Family History: Family hx of DM, Family hx of Cancer, Family hx of heart rimma Social History Smoker: Non-Smoker Alcohol: Denies ETOH Use Drugs: Denies Drug Use Lives In: Home Constitutional: denies: chills, diaphoresis, fatigue, fever, malaise, sweats, weakness, others EENTM: denies: blurred vision, double vision, ear bleeding, ear discharge, ear drainage, ear pain, ear ringing, eye pain, eye redness, hearing loss, mouth pain, mouth swelling, nasal discharge, nose bleeding, nose congestion, nose pain, photophobia, tearing, throat pain, throat swelling, voice changes, others Respiratory: denies: cough, hemoptysis, orthopnea, SOB at rest, shortness of breath, SOB with excertion, stridor, wheezing, others Cardiovascular: denies: chest pain, dizzy spells, diaphoresis, Dyspnea on exe rtion, edema, irregular heart beat, left arm pain, lightheadedness, palpitations, PND, syncope, others Gastrointestinal: denies: abdomen distended, abdominal pain, blood streaked bowels, constipated, diarrhea, dysphagia, difficulty swallowing, hematemesis, melena, nausea, poor appetite, poor fluid intake, rectal bleeding, rectal pain, vomiting, others Genitourinary: denies: abnormal vagina bleeding, burning, dyspareunia, dysuria, flank pain, frequency, hematuria, incontinence, pain, , vagina discharge, urgency, others Neurological: denies: dizziness, fainting, headache, left sided numbness, left sided weakness, numbness, paresthesia, pre-existing deficit, right sided numbness, right sided weakness, seizure, speech problems, tingling, tremors, weakness, others Musculoskeletal: denies: back pain, gout, joint pain, joint swelling, muscle pain, muscle stiffness, neck pain, others Integumetry: denies: bruises, change in color, change in hair/nails, dryness, laceration, lesions, lumps, rash, wounds, others Allergic/Immunocompromised: denies: Difficulty Healing, Frequent Infections, Hives, Itching, others Hematologic/Lymphatic: denies: anemia, blood clots, easy bleeding, easy bruising, swollen glands, others Endocrine: denies: excessive hunger, excessive sweating, excessive thirst, excessive urination, flushing, intolerance to cold, intolerance to heat, unexplained weight gain, unexplained weight loss, others Psychiatric: denies: anxiety, bipolar disorder, depression, hopeless, panic disorder, schizophrenia, sleepless, suicidal, others All Other Systems: Reviewed and Negative (see HPI) Physical Exam Exam Comments answer questions appropriately General Appearance: No Apparent Distress, Obese HEENT: Normal ENT Inspection, Pharynx Normal, TMs Normal Neck: Full Range of Motion, Non-Tender, Normal, Normal Inspection Respiratory: Chest Non-Tender, Lungs Clear, No Accessory Muscle Use, No Respiratory Distress, Normal Breath Sounds Cardiovascular: No Edema, No JVD, No Murmur, No Gallop, Normal Peripheral Pulses, Regular Rate/Rhythm Breast Exam: Deferred Gastrointestinal: No Organomegaly, Non Tender, No Pulsatile Mass, Normal Bowel Sounds, Soft Genitalia: Deferred Pelvic: Deferred Rectal: Deferred Extremities: No calf tenderness, Normal capillary refill, Normal inspection, Normal range of motion, Non-tender, No pedal edema Musculoskeletal : Apperance: Normal Neurologic: Alert, coater carbon paper II-XII nml as Tested, No Motor Deficits, Normal Affect, Normal Mood, No Sensory Deficits Cerebellar Function: Normal Reflexes: Normal Skin: Dry, Normal Color, Warm Lymphatic: No Adenopathy Was a procedure done? Was a procedure done?: No Differential Dx Considerations may include: medication overdose, encephalopathy, electrolyte imbalance X-Ray, Labs, Meds, VS Vital Signs Date Time Temp Pulse Resp B/P (MAP) Pulse Ox O2 Delivery O2 Flow Rate FiO2 05/14/24 01:00 102 21 100/37 (58) 94 05/14/24 00:00 86 14 139/83 (101) 94 05/13/24 23:00 92 14 119/76 (90) 94 05/13/24 22:00 99 22 139/62 (87) 93 05/13/24 21:00 101 18 151/84 (106) 92 05/13/24 20:00 102 05/13/24 19:30 102 20 150/85 (106) 94 05/13/24 19:10 97.8 100 14 146/81 (102) 94 Lab Test 05/13/24 19:34 Range/Units White Blood Count 5.0 4.4-10.8 10^3/uL Red Blood Count 4.61 4.0-5.20 10^6/uL Hemoglobin 12.5 12.2-16.2 g/dL Hematocrit 37.9 36.0-46.0 % Mean Corpuscular Volume 82.1 80.0-100.0 fL Mean Corpuscular Hemoglobin 27.2 L 28.0-32.0 pg Mean Corpuscular Hemoglobin Concent 33.1 32.0-36.0 g/dL Red Cell Distribution Width 15.3 H 11.8-14.3 % Platelet Count 202 140-450 10^3/uL Mean Platelet Volume 8.1 6.9-10.8 fL Neutrophils (%) (Auto) 59.2 37.0-80.0 % Lymphocytes (%) (Auto) 30.1 10.0-50.0 % Monocytes (%) (Auto) 8.4 0.0-12.0 % Eosinophils (%) (Auto) 1.4 0.0-7.0 % Basophils (%) (Auto) 0.9 0.0-2.0 % Neutrophils # (Auto) 3.0 1.6-8.6 10 ^3/uL Lymphocytes # (Auto) 1.5 0.4-5.4 10 ^3/uL Monocytes # (Auto) 0.4 0-1.3 10 ^3/uL Eosinophils # (Auto) 0.1 0-0.8 10 ^3/uL Basophils # (Auto) 0 0-0.2 10 ^3/uL Nucleated Red Blood Cells 0.2 % Sodium Level 139 136-145 mmol/L Potassium Level 4.0 3.5-5.1 mmol/L Chloride Level 106 98-107 mmol/L Carbon Dioxide Level 25 20-31 mmol/L Anion Gap 8 5-15 Blood Urea Nitrogen 15 9-23 mg/dL Creatinine 0.70 0.550-1.02 mg/dL Glomerular Filtration Rate Calc 96 >90 mL/min BUN/Creatinine Ratio 21.4 H 10.0-20.0 Serum Glucose 217 H 74-106 mg/dL Calcium Level 8.9 8.7-10.4 mg/dL Total Bilirubin < 0.2 L 0.2-1.0 mg/dL Aspartate Amino Transferase (AST) 11 L 13-40 U/L Alanine Aminotransferase (ALT) 19 7-40 U/L Alkaline Phosphatase 95 46-116 U/L Total Protein 6.1 5.7-8.2 g/dL Albumin 3.8 3.2-4.8 g/dL Salicylates Level < 3.0 -30 mg/dL Acetaminophen Level < 2.0 L 10.0-20.0 UG/ML Plasma/Serum Blood Alcohol < 3.0 <10 mg/dL X-Ray, Labs, Meds, VS Comment Contact made with the poison control, they recommend monitoring the patient until she was back to normal status. It did state risk of, and respiratory distress. They recommended CBC CMP Tylenol and salicylate levels. Urine drug screen. Time of 1ST Reevaluation: 19:23 (poison control contacted and was recommended to monitor the patient until she returns to normal state in addition to bloodwork order) Reevaluation 1ST: Unchanged Patient Education/Counseling: Other (patient altered ) Family Education/Counseling: No Family Present Departure 1 Departure Time of Disposition: 02:08 Impression: Primary Impression: Toxic encephalopathy Qualified Codes: G92.9 - Unspecified toxic encephalopathy Additional Impression: Overdose Qualified Codes: T50.901A - Poisoning by unspecified drugs, medicaments and biological substances, accidental (unintentional), initial encounter Disposition: ADMITTED INPATIENT Condition: Stable Discharged With: Self Critical Care Note Critical Care Time?: No Stability Stability form required: No Heart Score Heart Score: Heart Score Response (Comments) Value History N/A 0 EKG N/A 0 Age N/A 0 Risk Factors N/A 0 Troponin N/A 0 Total 0 I personally scribed for PHIL RAMÍREZ ([email or web address]) on 05/14/24 at 00:20. Electronically submitted by Palomo Sethi ([email or web address]). I personally scribed for PHIL RAMÍREZ ([email or web address]) on 05/14/24 at 00:39. Electronically submitted by Palomo Sethi ([email or web address]). PHIL RAMÍREZ May 14, 2024 00:20
[2024-05-14] MEDS ORDERED: NITROGLYCERIN 0.4 MG SL TAB SL PRN (02:15)
--- NOTE | 2024-05-14 02:34 | DVHHPRES ---
History of Present Illness Resident Creating Document: KIRILL JAMA RESIDENT History of Present Illness Patient is 64 years old female with past medical history of hypertension, diabetes mellitus type 2, hyperlipidemia, TIA, history of recurrent UTI, morbid obesity, anxiety, depression brought by EMS due to Ambien overdose. As per patient and EMS report and also from the nursing staff patient 7 of the Ambien 10 mg. Patient reported that she did not have good sleep last several days so she took 10 mg Ambien then followed by 6 more of the 10 mg Ambien. After that she called EMS. Patient denied intentionally overdosing or to hurt herself, denied SI or HI. Patient denied any chest pain, shortness of breath, constipation, joint pain or swelling. Telemetry monitoring revealed sinus rhythm, CBC, CMP within normal limit, blood sugar 207, alcohol less than 3. On arrival patient's blood pressure was 151/84, pulse 102, respiration 18, SpO2 90- 94%. Sleepy but arousable with some slurring speech, on room air no hypoxia noted, blood pressure latest was 100 5/54, SpO2 94% in room air, telemetry EKG in sinus rhythm. Nursing staff was advised to wake the patient up frequently to check on her breathing/ altered mental consciousness/sign of respiratory depression. Past Surgical History hypertension, diabetes mellitus type 2, hyperlipidemia, TIA, history of recurrent UTI, morbid obesity, anxiety, depression, Family History Mom had hypertension and diabetes, dad noncontributory Past Social History Lives at home, denies smoking or drug abuse, occasional drinking alcohol Review of Systems Review of Systems - Allergy- indomethacin, sulfa drugs Patient was seen today at the bedside. Patient sleepy but arousable Cardiovascular- deny acute chest pain or shortness of breath or cough or palpitation Respiratory- denies cough or short of breath or wheezing Gastrointestinal- denies any rectal bleeding, nausea or vomiting Musculoskeletal-denies acute joint swelling or tenderness or redness Neurological- denies acute dysarthria, dysphagia, change in vision Psychiatry- denies depression or SI or HI Skin- denies acute rash or purpura Allergies: Coded Allergies: Indomethacin (Verified Allergy, Unknown, 12/21/09) Sulfa Drugs (Verified Allergy, Unknown, 12/21/09) Medications Current Medications Medications Dose Ordered Sig/Feng Route Start Time Stop Time Status Last Admin Dose Admin Sodium Chloride 10 ml Q8HR IV 05/14/24 06:00 Ondansetron HCl 4 mg Q4HP PRN IV 05/14/24 02:15 Enoxaparin Sodium 40 mg DAILY SC 05/14/24 10:00 Nitroglycerin 0.4 mg Q5MINP PRN SL 05/14/24 02:15 Morphine Sulfate 2 mg Q30M PRN IV 05/14/24 02:15 Exam Vital Signs Vital Signs Date Time Temp Pulse Resp B/P (MAP) Pulse Ox O2 Delivery O2 Flow Rate FiO2 05/14/24 01:00 102 21 100/37 (58) 94 05/13/24 19:10 97.8 Exam General examination- morbid obese, sleepy but arousable HEENT- PEERLA, no acute nasal discharge Cardiovascular- S1-S2 audible, rate and rhythm regular, no murmur Respiratory- CTAB, no wheeze or rhonchi Gastrointestinal-nontender, bowel sound+. Nondistended Musculoskeletal-no acute joint swelling or tenderness or redness# Lower extremity- no leg edema noted Neurological- cranial nerves intact, no acute dysarthria or dysphagia Psychiatry- denies depression or SI or HI Skin- no acute rash or purpura Labs/Xrays Labs Test 05/13/24 19:34 Range/Units White Blood Count 5.0 4.4-10.8 10^3/uL Red Blood Count 4.61 4.0-5.20 10^6/uL Hemoglobin 12.5 12.2-16.2 g/dL Hematocrit 37.9 36.0-46.0 % Mean Corpuscular Volume 82.1 80.0-100.0 fL Mean Corpuscular Hemoglobin 27.2 L 28.0-32.0 pg Mean Corpuscular Hemoglobin Concent 33.1 32.0-36.0 g/dL Red Cell Distribution Width 15.3 H 11.8-14.3 % Platelet Count 202 140-450 10^3/uL Mean Platelet Volume 8.1 6.9-10.8 fL Neutrophils (%) (Auto) 59.2 37.0-80.0 % Lymphocytes (%) (Auto) 30.1 10.0-50.0 % Monocytes (%) (Auto) 8.4 0.0-12.0 % Eosinophils (%) (Auto) 1.4 0.0-7.0 % Basophils (%) (Auto) 0.9 0.0-2.0 % Neutrophils # (Auto) 3.0 1.6-8.6 10 ^3/uL Lymphocytes # (Auto) 1.5 0.4-5.4 10 ^3/uL Monocytes # (Auto) 0.4 0-1.3 10 ^3/uL Eosinophils # (Auto) 0.1 0-0.8 10 ^3/uL Basophils # (Auto) 0 0-0.2 10 ^3/uL Nucleated Red Blood Cells 0.2 % Sodium Level 139 136-145 mmol/L Potassium Level 4.0 3.5-5.1 mmol/L Chloride Level 106 98-107 mmol/L Carbon Dioxide Level 25 20-31 mmol/L Anion Gap 8 5-15 Blood Urea Nitrogen 15 9-23 mg/dL Creatinine 0.70 0.550-1.02 mg/dL Glomerular Filtration Rate Calc 96 >90 mL/min BUN/Creatinine Ratio 21.4 H 10.0-20.0 Serum Glucose 217 H 74-106 mg/dL Calcium Level 8.9 8.7-10.4 mg/dL Total Bilirubin < 0.2 L 0.2-1.0 mg/dL Aspartate Amino Transferase (AST) 11 L 13-40 U/L Alanine Aminotransferase (ALT) 19 7-40 U/L Alkaline Phosphatase 95 46-116 U/L Total Protein 6.1 5.7-8.2 g/dL Albumin 3.8 3.2-4.8 g/dL Salicylates Level < 3.0 -30 mg/dL Acetaminophen Level < 2.0 L 10.0-20.0 UG/ML Plasma/Serum Blood Alcohol < 3.0 <10 mg/dL Assessment/Plan Assessment/Plan # sedative overdose -patient had 7 of the Ambien 10 mg -as per patient she took it because she did not have good sleep for last several days -denied attempting suicide or harming herself -patient's clinical but arousable -nursing staff was advised to wake the patient up frequently to check on her breathing, to avoid respiratory depression -monitor vitals -continue normal saline as prescribed # diabetes mellitus type 2 -continue insulin sliding scale as prescribed # history of hypertension -soft BP for now -continue monitoring blood pressure -monitor blood pressure # hyperlipidemia -monitor lipid profile -low-fat diet # history of TIA -follow up outpatient # depression --patient had 7 of the Ambien of 10 mg -as per patient she took it because she did not have good sleep for last several days -denied attempting suicide or harming herself # anxiety -monitor clinically Goals of care/advance care planning; FULL CODE; discussed with the patient >15 minutes PUD prophylaxis: None DVT prophylaxis: None Plan discussed with Dr. Dior, nursing staff, patient Total time spent on patient evaluation, chart review, assessment and plan, discussion discussion >30 minutes Plan discussed with: Patient Plan discussed with: Patient, Spouse (RN), Other My Orders Orders - KIRILL JAMA Procedure Category Date Status Time Admit ADMIT 05/14/24 Transmitted 02:04 Code Status CODE 05/14/24 Transmitted 02:04 Sodium Chloride Lock PHA 05/14/24 In Process (Saline Lock Ns) 06:00 Ondansetron Hcl PHA 05/14/24 In Process (Zofran) 02:15 Enoxaparin Sodium PHA 05/14/24 In Process (Lovenox) 10:00 Complete Blood Count LAB 05/15/24 Verified 04:00 Comprehensive LAB 05/15/24 Verified Metabolic Panel 04:00 Npo (Nothing By DIET 05/14/24 Transmitted Mouth) Diet Breakfast Nitroglycerin [facility] 05/14/24 In Process Sublingual (Ntrostat 02:15 Morphine Sulfate PHA 05/14/24 In Process Injection 02:15 Oxygen By Nasal RT 05/14/24 Transmitted Cannula 02:04 Stat Ekg For Chest [facility] 05/14/24 In Process Pain 02:04 Notify Of Changes [facility] 05/14/24 In Process From Base 02:04 Grey Washer For [facility] 05/14/24 In Process 24 Hours 02:04 Emergency Dysrhythmia [facility] 05/14/24 In Process Protocol 02:04 Rhythm Strips Once [facility] 05/14/24 In Process Every Shift 02:04 Date of Service: May 14, 2024 Billing Provider: KAROLINA DIOR MD Common Visit Codes: [id number] INP/OBS CARE (HIGH) Secondary Visit Codes: [id number] CARE PLAN 30 MINUTES KIRILL JAMA May 14, 2024 02:34 KAROLINA DIOR MD May 14, 2024 19:11
[2024-05-14] MEDS: DEXTROSE (50%) 50ML SYRG IV ONE (03:00)
[2024-05-14] MEDS: ACCU-CHEK COMFORT CURVE STRIP VI ONE (03:00)
[2024-05-14] MEDS: SODIUM CHLORIDE 0.9% 500 ML IV ONE (03:25)
[2024-05-14] MEDS: InsuLIN REG 1unit/0.01ml Soln (100units/ml) SC ONE (03:47)
[2024-05-14] MEDS: SODIUM CHLORIDE 0.9% 1,000 ML IV SCH (04:45)
[2024-05-14 05:59] LABS: Urine Bacteria None Seen /hpf (None Seen)
[2024-05-14] MEDS: SODIUM CHLOR 0.9% PF (SALINE LOCK) 10ML VIAL/SYR IV SCH (06:06)
[2024-05-14 06:07] LABS: Basophils # (auto) 0.1 10 ^3/uL (0-0.2); Basophils % (auto) 1.2 % (0.0-2.0); Eosinophils # (auto) 0.1 10 ^3/uL (0-0.8); Eosinophils % (auto) 1.8 % (0.0-7.0); Hematocrit 36.3 % (36.0-46.0); Hemoglobin 11.9 g/dL (12.2-16.2); Lymphocytes # (auto) 1.7 10 ^3/uL (0.4-5.4); Mean Corpuscular Hemoglobin 27.2 pg (28.0-32.0); Mean Corpuscular Hgb Conc. 32.6 g/dL (32.0-36.0); Mean Corpuscular Volume 83.4 fL (80.0-100.0); Monocytes # (auto) 0.4 10 ^3/uL (0-1.3); Monocytes % (auto) 8.1 % (0.0-12.0); Neutrophils # (auto) 2.3 10 ^3/uL (1.6-8.6); Neutrophils % (auto) 50.9 % (37.0-80.0); Nucleated Red Blood Cells % 0.4 %; Platelet Count (auto) 197 10^3/uL (140-450); Red Blood Cells 4.36 10^6/uL (4.0-5.20); Red Cell Distribution Width 15.2 % (11.8-14.3); White Blood Cell 4.5 10^3/uL (4.4-10.8)
[2024-05-14 06:28] LABS: Urine Blood Negative /uL (Negative); Urine Clarity Clear (Clear); Urine Color Yellow (Yellow); Urine Mucus FEW (None Seen); Urine Protein, UAD TRACE (Negative); Urine Specific Gravity 1.023 (1.001-1.035); Urine Urobilinogen Normal (Negative); Urine WBC 17 /hpf (0 - 5)
[2024-05-14 06:31] LABS: Alanine Aminotransferase 19 U/L (7-40); Albumin 3.6 g/dL (3.2-4.8); Alkaline Phosphatase 72 U/L (46-116); Anion Gap 9 (5-15); Aspartate Aminotransferase 10 U/L (13-40); BUN/Creatinine Ratio 20.3 (10.0-20.0); Bilirubin, Total 0.2 mg/dL (0.2-1.0); Blood Urea Nitrogen 12 mg/dL (9-23); Calcium 8.5 mg/dL (8.7-10.4); Carbon Dioxide 25 mmol/L (20-31); Chloride 106 mmol/L (98-107); Glucose 147 mg/dL (74-106); Magnesium 1.4 mg/dL (1.6-2.6); Potassium 3.8 mmol/L (3.5-5.1); Sodium 140 mmol/L (136-145); Total Protein 5.5 g/dL (5.7-8.2)
[2024-05-14 06:46] LABS: Amphetamine Screen, Urine Neg (NEGATIVE)
[2024-05-14 06:47] LABS: Barbiturate Scree,Urine Pos (NEGATIVE); Benzodiazephine Screen, Urine Neg (NEGATIVE); Cocaine Screen, Urine Neg (NEGATIVE)
[2024-05-14 06:48] LABS: Cannabinoid Screen, Urine Neg (NEGATIVE); Opiate Scree,Urine Neg (NEGATIVE); Phencyclidine Screen, Urine Neg (NEGATIVE)
--- NOTE | 2024-05-14 07:45 | DVH ---
EXAM: CT HEAD WITHOUT CONTRAST INDICATION: AMS TECHNIQUE: CT of the head without intravenous contrast. Coronal and sagittal reformatted images are submitted. Radiation Dose : 1. Head: CT Dose: CTDI volume is 52.91 mGy. Dose-length product is 863.9 mGy*cm The dose indicators for CT are the volume Computed Tomography (CT) Dose Index (CTDIvol) and the Dose Length Product (DLP), and are measured in units of mGy and mGy-cm, respectively. These indicators are not patient dose, but values generated from the CT scanner acquisition factors. The report includes radiation exposure data for exposures received during this examination. All CT scans at this medical facility are performed using dose modulation techniques as appropriate to a performed exam including the following: Automated exposure control was utilized; adjustment of the MA and/or KV according to patient size; and use of iterative reconstruction technique. COMPARISON: CT HEAD WITHOUT CONTRAST on DOS: 04/09/23 FINDINGS: There is no evidence of acute intracranial hemorrhage, extra-axial collection, mass effect, midline s hift, herniation or hydrocephalus. The ventricles, sulci and cisterns are age appropriate. The fang-white differentiation is intact. The visualized paranasal sinuses and mastoid air cells are clear. No depressed calvarial fracture. The surrounding soft tissues are unremarkable. IMPRESSION: 1. No evidence of acute intracranial abnormality.
--- NOTE | 2024-05-14 07:49 | DVH ---
CHEST RADIOGRAPH Indication: dyspnea Technique: Single frontal view of the chest was obtained Comparison: XY CHEST PORTABLE on DOS: 05/03/24 FINDINGS: Lines and Tubes: None Lungs: No focal consolidation. Pleura: No effusion. No pneumothorax. Cardiomediastinal contours: Magnified by portable supine technique but stable in size. Bones: No acute osseous abnormality. Thoracic spine stimulator noted. ACDF. IMPRESSION: 1. No acute cardiopulmonary disease.
[2024-05-14] MEDS: MAGNESIUM SULFATE 1GM/100ML 100 ML IV SCH (09:21)
[2024-05-14] MEDS: PANTOPRAZOLE 40 MG/10 ML VIAL INJ IV SCH (09:21)
[2024-05-14] MEDS: ENOXAPARIN SOD 40 MG/0.4 ML SYRINGE SC SCH (09:33)
[2024-05-14 10:22] VITALS: PULSE 85; RESP 14; O2SAT 93
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
[2024-05-14] MEDS: ACETAMINOPHEN 500 MG TAB PO ONE (14:13)
[2024-05-14] MEDS: KETOROLAC TROMETH 30 MG/ML 1ML VIAL IV ONE (14:13)
[2024-05-14] MEDS: LIDOCAINE 5% TOPICAL PATCH TOP ONE (14:13)
[2024-05-14] MEDS ORDERED: DEXTROSE (50%) 50ML SYRG IV PRN (15:30)
[2024-05-14] MEDS: InsuLIN REG 1unit/0.01ml Soln (100units/ml) SC SCH (16:44)
[2024-05-14] MEDS: ACCU-CHEK COMFORT CURVE STRIP VI SCH (17:04)
--- NOTE | 2024-05-14 18:15 | DVHPNRES ---
Progress Note Date Seen: May 14, 2024 Resident Creating Document: LIAM CARR RESIDENT Has the PT tested + for MRSA If YES, has PT been informed?: No Medical Necessity Reason Pt with a Central, PICC or Fol: No Subjective Review of Systems A 64 year old female with past medical history of hypertension, diabetes mellitus type 2, hyperlipidemia, TIA, history of recurrent UTI, morbid obesity, anxiety, depression, narcolepsy?, irritable bowel syndrome, chronic pain and sleep apnea brought by EMS because the patient took 7 pills of zolpidem 10 mg. As per patient and Patient reported that she did not have good sleep last several days so she took 10 mg Ambien then followed by 6 more of the 10 mg Ambien. After that she called EMS. Patient denied intentionally overdosing or to hurt herself, but has previous history of suicide attempt Telemetry monitoring revealed sinus rhythm, CBC, CMP within normal limit, blood sugar 207, alcohol less than 3. On arrival patient's blood pressure was 151/84, pulse 102, respiration 18, SpO2 90-94%. Sleepy but arousable with some slurring speech, on room air no hypoxia noted, blood pressure latest was 100 5/54, SpO2 94% in room air, telemetry EKG in sinus rhythm. Lives at home, denies smoking or drug abuse, occasional drinking alcohol Objective vital signs Vital Sign Date Time Temp Pulse Resp B/P (MAP) Pulse Ox O2 Delivery O2 Flow Rate FiO2 05/14/24 16:20 83 20 153/81 (105) 95 05/14/24 14:36 98.2 98.2 05/14/24 10:22 Room Air* 0 21 Total Intake and Output 05/13/24 05/13/24 05/14/24 14:59 22:59 06:59 Intake Total 250 ml Balance 250 ml medications Current Medications Medications Dose Ordered Sig/Feng Route Start Time Stop Time Status Last Admin Dose Admin Sodium Chloride 10 ml Q8HR IV 05/14/24 06:00 05/14/24 10:20 10 ML Ondansetron HCl 4 mg Q4HP PRN IV 05/14/24 02:15 Enoxaparin Sodium 40 mg DAILY SC 05/14/24 10:00 05/14/24 09:33 40 MG Nitroglycerin 0.4 mg Q5MINP PRN SL 05/14/24 02:15 Morphine Sulfate 2 mg Q30M PRN IV 05/14/24 02:15 Sodium Chloride 1,000 ml @ 125 mls/hr Q8H IV 05/14/24 02:45 05/14/24 17:05 125 MLS/HR Pantoprazole Sodium 40 mg DAILY IV 05/14/24 10:00 05/14/24 09:21 40 MG Lidocaine 1 patch DAILY TOP 05/15/24 10:00 Acetaminophen 500 mg Q8HP PRN PO 05/14/24 13:45 Diagnostic Test (Pha) 1 strip ACHS 05/14/24 17:00 05/14/24 17:04 1 STRIP Insulin Human Regular AC SC 05/14/24 17:00 05/14/24 16:44 2 UNITS Dextrose 50 ml UD PRN IV 05/14/24 15:30 Insulin Glargine 90 units HS SC 05/14/24 22:00 Examination General examination- morbid obese, sleepy but arousable HEENT- PEERLA, no acute nasal discharge Cardiovascular- S1-S2 audible, rate and rhythm regular, no murmur Respiratory- CTAB, no wheeze or rhonchi Gastrointestinal-nontender, bowel sound+. Nondistended Musculoskeletal-no acute joint swelling or tenderness or redness# Lower extremity- no leg edema noted Neurological- cranial nerves intact, no acute dysarthria or dysphagia Psychiatry- denies depression or SI or HI Skin- no acute rash or purpura laboratory and microbiology Laboratory Tests 05/14/24 05:24 Test 05/14/24 05:24 Range/Units Serum Glucose 147 H 74-106 mg/dL Problem List/Assessment/Plan Problem List/Assessment/Plan # sedative overdose -patient had 7 of the Ambien 10 mg -as per patient she took it because she did not have good sleep for last several days -denied attempting suicide or harming herself : Psych clearance -observation for 24h Possible DC tomorrow # diabetes mellitus type 2 Lantus 90 ui aggressive insulin scale # history of hypertension Lisinopril 10 mg daily # history of TIA -follow up outpatient # MDD --patient had 7 of the Ambien of 10 mg -as per patient she took it because she did not have good sleep for last several days -denied attempting suicide or harming herself : Psych clearance Due to overdose: restart anti depression medication at home #narcolepsy? Stop pitolisant f/u with pulmonology as outpatient to address the insomnia and the need of the medication #irritable bowel syndrome Stop phenobarbital- hyoscyamine no acute episodes of diarrhea Goals of care/advance care planning; FULL CODE; discussed with the patient >15 minutes Plan discussed with Dr. Tillman, nursing staff, patient Total time spent on patient evaluation, chart review, assessment and plan, discussion discussion >30 minutes Plan discussed with: Patient, Other (rn) My Orders My Orders Orders - LIAM CARR RESIDENT Procedure Category Date Status Time Chest Xray 1 View XY 05/14/24 Resulted 06:56 Date of Service: May 14, 2024 Billing Provider: MOUNIKA TILLMAN MD Common Visit Codes: [id number] INP/OBS CARE(HIGH) Coding Comment Comment Attending Attestation I saw and evaluated the patient. I reviewed the residents note and agree with findings and plan as documented in the residents note except as documented below. No active SA/SI. unintentional OD on LIAM Martins RESIDENT May 14, 2024 18:15 MOUNIKA TILLMAN MD May 14, 2024 20:58
[2024-05-14 19:30] VITALS: PULSE 79; RESP 18; O2SAT 94
[2024-05-14] MEDS: INSULIN LANTUS (GLARGINE) 1 /0.01ml (100units/ml) SC SCH (23:12)
[2024-05-14] MEDS: ONDANSETRON HCL 4 MG/2 ML VIAL IV PRN (23:17)
[2024-05-14] MEDS: MORPHINE SULFATE INJ 2 MG/ml SYRG IV PRN (23:18)
[2024-05-15] VITALS (10 sets, daily range): BP systolic 118–157; BP diastolic 61–79; PULSE 73–89; RESP 18–20; TEMP 96.6–98; O2SAT 91–98
[2024-05-15] MEDS: ACETAMINOPHEN 500 MG TAB PO PRN (04:17)
[2024-05-15 08:05] LABS: Basophils # (auto) 0 10 ^3/uL (0-0.2); Basophils % (auto) 0.6 % (0.0-2.0); Eosinophils # (auto) 0.1 10 ^3/uL (0-0.8); Eosinophils % (auto) 1.8 % (0.0-7.0); Hematocrit 37.8 % (36.0-46.0); Hemoglobin 12.5 g/dL (12.2-16.2); Lymphocytes # (auto) 1.6 10 ^3/uL (0.4-5.4); Lymphocytes % (auto) 38.7 % (10.0-50.0); Mean Corpuscular Hemoglobin 27.4 pg (28.0-32.0); Monocytes # (auto) 0.3 10 ^3/uL (0-1.3); Monocytes % (auto) 7.5 % (0.0-12.0); Neutrophils # (auto) 2.1 10 ^3/uL (1.6-8.6); Neutrophils % (auto) 51.4 % (37.0-80.0); Nucleated Red Blood Cells % 0.2 %; Platelet Count (auto) 194 10^3/uL (140-450); Red Blood Cells 4.55 10^6/uL (4.0-5.20); Red Cell Distribution Width 15.4 % (11.8-14.3); White Blood Cell 4.1 10^3/uL (4.4-10.8)
[2024-05-15 08:18] LABS: Alanine Aminotransferase 17 U/L (7-40); Albumin 3.6 g/dL (3.2-4.8); Alkaline Phosphatase 75 U/L (46-116); Anion Gap 8 (5-15); Aspartate Aminotransferase 12 U/L (13-40); BUN/Creatinine Ratio 16.9 (10.0-20.0); Bilirubin, Total 0.3 mg/dL (0.2-1.0); Blood Urea Nitrogen 11 mg/dL (9-23); Calcium 8.9 mg/dL (8.7-10.4); Carbon Dioxide 26 mmol/L (20-31); Chloride 107 mmol/L (98-107); Glucose 123 mg/dL (74-106); Potassium 3.7 mmol/L (3.5-5.1); Sodium 141 mmol/L (136-145); Total Protein 5.8 g/dL (5.7-8.2)
[2024-05-15] MEDS: LIDOCAINE 5% TOPICAL PATCH TOP SCH (10:16)
[2024-05-15] MEDS: LISINOPRIL 5 MG TAB PO SCH (10:17)
[2024-05-15] MEDS ORDERED: LIDO5DIS21 TOP (14:03)
[2024-05-15] MEDS: KETOROLAC TROMETH 30 MG/ML 1ML VIAL IV PRN (15:43)
--- NOTE | 2024-05-15 16:44 | DVHPNRES ---
Progress Note Date Seen: May 15, 2024 Resident Creating Document: ILAM CARR RESIDENT Has the PT tested + for MRSA If YES, has PT been informed?: No Medical Necessity Reason Pt with a Central, PICC or Fol: No Subjective Review of Systems A 64 year old female with past medical history of hypertension, diabetes mellitus type 2, hyperlipidemia, TIA, history of recurrent UTI, morbid obesity, anxiety, depression, narcolepsy?, irritable bowel syndrome, chronic pain and sleep apnea brought by EMS because the patient took 7 pills of zolpidem 10 mg. As per patient and Patient reported that she did not have good sleep last several days so she took 10 mg Ambien then followed by 6 more of the 10 mg Ambien. After that she called EMS. Patient denied intentionally overdosing or to hurt herself, but has previous history of suicide attempt Telemetry monitoring revealed sinus rhythm, CBC, CMP within normal limit, blood sugar 207, alcohol less than 3. On arrival patient's blood pressure was 151/84, pulse 102, respiration 18, SpO2 90-94%. Sleepy but arousable with some slurring speech, on room air no hypoxia noted, blood pressure latest was 100 5/54, SpO2 94% in room air, telemetry EKG in sinus rhythm. Lives at home, denies smoking or drug abuse, occasional drinking alcohol Objective vital signs Vital Sign Date Time Temp Pulse Resp B/P (MAP) Pulse Ox O2 Delivery O2 Flow Rate FiO2 05/15/24 13:06 97.9 77 18 147/79 95 21 97.9 05/15/24 08:00 Room Air* 0 Total Intake and Output 05/14/24 05/14/24 05/15/24 15:00 23:00 07:00 Intake Total 1200 ml 1575 ml 0 ml Output Total 1500 ml Balance 1200 ml 75 ml 0 ml medications Current Medications Medications Dose Ordered Sig/Feng Route Start Time Stop Time Status Last Admin Dose Admin Sodium Chloride 10 ml Q8HR IV 05/14/24 06:00 05/15/24 14:00 10 ML Ondansetron HCl 4 mg Q4HP PRN IV 05/14/24 02:15 05/15/24 11:16 4 MG Enoxaparin Sodium 40 mg DAILY SC 05/14/24 10:00 05/15/24 10:16 40 MG Nitroglycerin 0.4 mg Q5MINP PRN SL 05/14/24 02:15 Morphine Sulfate 2 mg Q30M PRN IV 05/14/24 02:15 05/14/24 23:18 2 MG Pantoprazole Sodium 40 mg DAILY IV 05/14/24 10:00 05/15/24 10:16 40 MG Lidocaine 1 patch DAILY TOP 05/15/24 10:00 05/15/24 10:16 1 PATCH Acetaminophen 500 mg Q8HP PRN PO 05/14/24 13:45 Hold 05/15/24 04:17 500 MG Diagnostic Test (Pha) 1 strip ACHS 05/14/24 17:00 05/15/24 11:52 1 STRIP Insulin Human Regular AC SC 05/14/24 17:00 05/15/24 11:30 4 UNITS Dextrose 50 ml UD PRN IV 05/14/24 15:30 Insulin Glargine 90 units HS SC 05/14/24 22:00 05/14/24 23:12 90 UNITS Lisinopril 10 mg DAILY PO 05/15/24 10:00 05/15/24 10:17 10 MG Ketorolac Tromethamine 15 mg [id number] PRN IV 05/15/24 15:00 05/20/24 14:59 05/15/24 15:43 15 MG Examination General examination- morbid obese, sleepy but arousable HEENT- PEERLA, no acute nasal discharge Cardiovascular- S1-S2 audible, rate and rhythm regular, no murmur Respiratory- CTAB, no wheeze or rhonchi Gastrointestinal-nontender, bowel sound+. Nondistended Musculoskeletal-no acute joint swelling or tenderness or redness# Lower extremity- no leg edema noted Neurological- cranial nerves intact, no acute dysarthria or dysphagia Psychiatry- denies depression or SI or HI Skin- no acute rash or purpura laboratory and microbiology Laboratory Tests 05/15/24 07:31 Test 05/15/24 07:31 Range/Units Serum Glucose 123 H 74-106 mg/dL Microbiology Date/Time Source Procedure Growth Status 05/15/24 07:33 Nose MRSA Screen - Final Complete 05/14/24 08:38 Urine - Catheterized Urine Culture - Preliminary Resulted Problem List/Assessment/Plan Problem List/Assessment/Plan # sedative overdose -patient had 7 of the Ambien 10 mg -as per patient she took it because she did not have good sleep for last several days -denied attempting suicide or harming herself : Psych clearance -observation due to drowsiness at admission Possible DC tomorrow # diabetes mellitus type 2 Lantus 90 ui aggressive insulin scale # history of hypertension Lisinopril 10 mg daily # history of TIA -follow up outpatient # MDD --patient had 7 of the Ambien of 10 mg -as per patient she took it because she did not have good sleep for last several days -denied attempting suicide or harming herself : Psych clearance Due to overdose: restart anti depression medication at home #narcolepsy? Stop pitolisant f/u with pulmonology as outpatient to address the insomnia and the need of the medication #irritable bowel syndrome Stop phenobarbital- hyoscyamine no acute episodes of diarrhea #Sleep apnea BIPAP at night Goals of care/advance care planning; FULL CODE; discussed with the patient >15 minutes Plan discussed with Dr. Tillman, nursing staff, patient Total time spent on patient evaluation, chart review, assessment and plan, discussion discussion >30 minutes Plan discussed with: Patient, Other (rn) My Orders My Orders Orders - LIAM CARR RESIDENT Procedure Category Date Status Time Lisinopril Tablet PHA 05/15/24 In Process (Zestril Tablet) 10:00 Bipap/Cpap For Sleep RT 05/15/24 Logged Apnea 12:55 Date of Service: May 15, 2024 Billing Provider: MOUNIKA TILLMAN MD Common Visit Codes: [id number] INP/OBS CARE(HIGH) Coding Comment Comment Attending Attestation I saw and evaluated the patient. I reviewed the residents note and agree with findings and plan as documented in the residents note except as documented below. LIAM CARR RESIDENT May 15, 2024 16:44 MOUNIKA TILLMAN MD May 15, 2024 21:16
[2024-05-16] VITALS (7 sets, daily range): BP systolic 120–146; BP diastolic 55–68; PULSE 69–83; RESP 16–20; TEMP 97.6–98.8; O2SAT 92–99
[2024-05-16 07:24] LABS: Basophils # (auto) 0 10 ^3/uL (0-0.2); Basophils % (auto) 0.6 % (0.0-2.0); Eosinophils # (auto) 0.1 10 ^3/uL (0-0.8); Eosinophils % (auto) 1.6 % (0.0-7.0); Hemoglobin 11.9 g/dL (12.2-16.2); Lymphocytes # (auto) 1.3 10 ^3/uL (0.4-5.4); Lymphocytes % (auto) 29.4 % (10.0-50.0); Mean Corpuscular Hemoglobin 27.1 pg (28.0-32.0); Mean Corpuscular Hgb Conc. 32.9 g/dL (32.0-36.0); Mean Corpuscular Volume 82.3 fL (80.0-100.0); Monocytes # (auto) 0.3 10 ^3/uL (0-1.3); Monocytes % (auto) 7.8 % (0.0-12.0); Neutrophils # (auto) 2.7 10 ^3/uL (1.6-8.6); Neutrophils % (auto) 60.6 % (37.0-80.0); Nucleated Red Blood Cells % 0.1 %; Platelet Count (auto) 192 10^3/uL (140-450); Red Blood Cells 4.38 10^6/uL (4.0-5.20); Red Cell Distribution Width 15.3 % (11.8-14.3); White Blood Cell 4.5 10^3/uL (4.4-10.8)
[2024-05-16 07:45] LABS: Alanine Aminotransferase 17 U/L (7-40); Albumin 3.6 g/dL (3.2-4.8); Alkaline Phosphatase 71 U/L (46-116); Anion Gap 9 (5-15); BUN/Creatinine Ratio 13.7 (10.0-20.0); Blood Urea Nitrogen 10 mg/dL (9-23); Calcium 9.4 mg/dL (8.7-10.4); Carbon Dioxide 27 mmol/L (20-31); Chloride 108 mmol/L (98-107); Glucose 108 mg/dL (74-106); Potassium 3.8 mmol/L (3.5-5.1); Sodium 144 mmol/L (136-145)
[2024-05-16 07:46] LABS: Aspartate Aminotransferase 11 U/L (13-40); Bilirubin, Total 0.3 mg/dL (0.2-1.0); Total Protein 5.6 g/dL (5.7-8.2)
--- NOTE | 2024-05-16 12:18 | DVHDSRES ---
Discharge Summary Date of Admission Resident Creating Document: RIDDHI BEYER RESIDENT May 14, 2024 at 02:06 Date of Discharge: May 16, 2024 Labs/Diagnostic Data: Laboratory Results Test 05/16/24 06:18 05/16/24 06:06 05/14/24 20:06 05/14/24 05:30 White Blood Count 4.5 10^3/uL (4.4-10.8) Red Blood Count 4.38 10^6/uL (4.0-5.20) Hemoglobin 11.9 g/dL (12.2-16.2) Hematocrit 36.0 % (36.0-46.0) Mean Corpuscular Volume 82.3 fL (80.0-100.0) Mean Corpuscular Hemoglobin 27.1 pg (28.0-32.0) Mean Corpuscular Hemoglobin Concent 32.9 g/dL (32.0-36.0) Red Cell Distribution Width 15.3 % (11.8-14.3) Platelet Count 192 10^3/uL (140-450) Mean Platelet Volume 8.1 fL (6.9-10.8) Neutrophils (%) (Auto) 60.6 % (37.0-80.0) Lymphocytes (%) (Auto) 29.4 % (10.0-50.0) Monocytes (%) (Auto) 7.8 % (0.0-12.0) Eosinophils (%) (Auto) 1.6 % (0.0-7.0) Basophils (%) (Auto) 0.6 % (0.0-2.0) Neutrophils # (Auto) 2.7 10 ^3/uL (1.6-8.6) Lymphocytes # (Auto) 1.3 10 ^3/uL (0.4-5.4) Monocytes # (Auto) 0.3 10 ^3/uL (0-1.3) Eosinophils # (Auto) 0.1 10 ^3/uL (0-0.8) Basophils # (Auto) 0 10 ^3/uL (0-0.2) Nucleated Red Blood Cells 0.1 % Sodium Level 144 mmol/L (136-145) Potassium Level 3.8 mmol/L (3.5-5.1) Chloride Level 108 mmol/L (98-107) Carbon Dioxide Level 27 mmol/L (20-31) Anion Gap 9 (5-15) Blood Urea Nitrogen 10 mg/dL (9-23) Creatinine 0.73 mg/dL (0.550-1.02) Glomerular Filtration Rate Calc 91 mL/min (>90) BUN/Creatinine Ratio 13.7 (10.0-20.0) Serum Glucose 108 mg/dL (74-106) Calcium Level 9.4 mg/dL (8.7-10.4) Total Bilirubin 0.3 mg/dL (0.2-1.0) Aspartate Amino Transferase (AST) 11 U/L (13-40) Alanine Aminotransferase (ALT) 17 U/L (7-40) Alkaline Phosphatase 71 U/L (46-116) Total Protein 5.6 g/dL (5.7-8.2) Albumin 3.6 g/dL (3.2-4.8) POC Glucose 115 mg/dl (70-106) Magnesium Level 1.8 mg/dL (1.6-2.6) Urine Color Yellow (Yellow) Urine Clarity Clear (Clear) Urine pH 6.0 (5.0-9.0) Urine Specific Marcell 1.023 (1.001-1.035) Urine Protein Trace (Negative) Urine Ketones Negative (Negative) Urine Blood Negative /uL (Negative) Urine Nitrite Negative (Negative) Urine Bilirubin Negative (Negative) Urine Urobilinogen Normal mg/dL (Negative) Urine Leukocyte Esterase 1+ /uL (Negative) Urine RBC 1 /hpf (0 - 4) Urine WBC 17 /hpf (0 - 5) Urine Squamous Epithelial Cells Mod /hpf (<5) Urine Bacteria None seen /hpf (None Seen) Urine Mucus Few (None Seen) Urine Glucose Normal mg/dL (Normal) Urine Opiates Screen Neg (NEGATIVE) Urine Fentanyl Screen Neg (NEGATIVE) Urine Barbiturates Screen Pos (NEGATIVE) Urine Phencyclidine Screen Neg (NEGATIVE) Urine Amphetamines Screen Neg (NEGATIVE) Urine Benzodiazepines Screen Neg (NEGATIVE) Urine Cocaine Screen Neg (NEGATIVE) Urine Cannabinoids Screen Neg (NEGATIVE) Test 05/14/24 05:24 05/13/24 19:34 Thyroid Stimulating Hormone (TSH) 0.95 uIU/mL (0.55-4.78) Free Thyroxine (T4) Calculated 0.90 ng/dL (0.89-1.76) Salicylates Level < 3.0 mg/dL (-30) Acetaminophen Level < 2.0 UG/ML (10.0-20.0) Plasma/Serum Blood Alcohol < 3.0 mg/dL (<10) Other Laboratory Tests 05/16/24 06:18 Brief Hx & Hospital Course: Dara Anthony is a 64 year old female who presents to ED with chief complaint of consumption of multiple psychotropic medication (zolpidem, barbiturates and pain medication), deciding to call EMS concerned of increase intake of sleeping pills due to increased drowsiness. Patient reports no suicidal ideation, she just wanted to sleep. She does report passive suicidal attempt (over 10 years ago) after . Denies palpitation, syncope, chest pain, dyspnea, nausea, vomiting, diarrhea, bleeding, unintentional weight loss, dysuria, visual disturbances and motor or sensory deficits. Past medical history: Hypertension, diabetes mellitus type 2, hyperlipidemia, TIA, history of recurrent UTI, morbid obesity, anxiety, depression, narcolepsy/cataplexy, irritable bowel syndrome, chronic pain and sleep apnea we will requiring on med CPAP machine. Surgical history: Denies Family history: Noncontributory Social history: Lives alone in [place]. Denies current tobacco, alcohol and other drug abuse Allergies: Indomethacin, sulfa drugs Home medication: Per EMR Brief hospital course: Toxic encephalopathy secondary to intentional overdose of sedative medication with no suicidal ideation symptomatic by drowsiness, responding to washout period of 48 hours. She was evaluated by tele psychiatry who cleared patient. Monitor patient for approximately 48 hours, with no alteration of mental status, normal EKG/telemetry strip and normal laboratory work. Patient hemodynamically stable, asymptomatic, cleared by tele psych professional, in condition to be discharged home. Was granted under optimal medical therapy, gave her advice on healthy lifestyle habits (including taking prescribed medications as indicated and gave sleeping hygiene advice), and follow up as outpatient with PCP and Psychiatry. DIAGNOSIS # Toxic encephalopathy # Sedative overdose # Ruled out suicidal ideation # Diabetes mellitus type 2 # Hypertension # History of TIA # History of major depressive disorder # Questionable Narcolepsy/cataplexy # Irritable bowel syndrome # Obstructive sleep apnea # Morbid obesity Goals of care discussed with patient for over 18 minutes: Full code status Plan discussed with Dr. Yu, patient and nurses. Physical examination Patient lying in bed, in no acute distress General: Lucid, afebrile, mucosae are moist Cardiovascular: Normal S1 and S2. No murmurs, gallops or rubs Respiratory: Normal ventilation mechanics. Clear lung sounds on auscultation Abdomen: Soft, nontender, no organomegaly, normal bowel sounds MSK/skin: Mobilizes 4 limbs. Skin is dry and warm Neurological: Oriented in 3 spheres. No motor no sensitive deficits. Pupils are isocoric and reactive Operations or Procedures EXAM: CT HEAD WITHOUT CONTRAST INDICATION: AMS TECHNIQUE: CT of the head without intravenous contrast. Coronal and sagittal reformatted images are submitted. Radiation Dose : 1. Head: CT Dose: CTDI volume is 52.91 mGy. Dose-length product is 863.9 mGy*cm The dose indicators for CT are the volume Computed Tomography (CT) Dose Index (CTDIvol) and the Dose Length Product (DLP), and are measured in units of mGy and mGy-cm, respectively. These indicators are not patient dose, but values generated from the CT scanner acquisition factors. The report includes radiation exposure data for exposures received during this examination. All CT scans at this medical facility are performed using dose modulation techniques as appropriate to a performed exam including the following: Automated exposure control was utilized; adjustment of the MA and/or KV according to patient size; and use of iterative reconstruction technique. COMPARISON: CT HEAD WITHOUT CONTRAST on DOS: 04/09/23 FINDINGS: There is no evidence of acute intracranial hemorrhage, extra-axial collection, mass effect, midline shift, herniation or hydrocephalus. The ventricles, sulci and cisterns are age appropriate. The fang-white differentiation is intact. The visualized paranasal sinuses and mastoid air cells are clear. No depressed calvarial fracture. The surrounding soft tissues are unremarkable. IMPRESSION: 1. No evidence of acute intracranial abnormality. ATED BY: KYLER GUERRIER MD DICTATED DATE/TIME: 05/14/24 2299 CHEST RADIOGRAPH Indication: dyspnea Technique: Single frontal view of the chest was obtained Comparison: XY CHEST PORTABLE on DOS: 05/03/24 FINDINGS: Lines and Tubes: None Lungs: No focal consolidation. Pleura: No effusion. No pneumothorax. Cardiomediastinal contours: Magnified by portable supine technique but stable in size. Bones: No acute osseous abnormality. Thoracic spine stimulator noted. ACDF. IMPRESSION: 1. No acute cardiopulmonary disease. ATED BY: KYLER GUERRIER MD DICTATED DATE/TIME: 05/14/24 0746 Condition at Discharge: Fair Final Diagnosis/Problems List # Toxic encephalopathy # Sedative overdose # Ruled out suicidal ideation # Diabetes mellitus type 2 # Hypertension # History of TIA # History of major depressive disorder # Questionable Narcolepsy/cataplexy # Irritable bowel syndrome # Obstructive sleep apnea # Morbid obesity Discharge Disposition: Home SNF Discharge Will this Physician continue t: No Discharge Instruct/Medications Diet: Consistent carbohydrate, Cardiac 2g Na,low cholest Activity: No Restrictions, As Tolerated Follow Up/Referral: PCP Psychiatry Medications: Per EMR Discharge Statement: "Patient was advised to return to the ER or call 911 if any headaches, dizziness, shortness of breath, chest pain, abdominal pain, bleeding, fevers, or worsening of medical condition. Patient was counseled about treatment plan, medications, possible side effects, patientverbalized understanding. All questions were answered to the best of my ability. This discharge took greater then 30 minutes in planning, reviewing documentation, counseling the patient, and discussing with other team members." ASSESSMENT ASSESSMENT Assessment Ambien overdose Date of Service: May 17, 2024 Billing Provider: MOUNIKA YU MD Common Visit Codes: 73897-ALN/OBS DISCH DAY >30min RIDDHI BEYER May 16, 2024 12:18 MOUNIKA YU MD May 17, 2024 21:58
== END 2024-05-16 12:35 | disposition home or self-care (01) | DRG 917 ==
LOC: EDBD 19:01 → ER 19:07 → TELE 05-14 02:06 → TELE-CENTR 05-15 04:03
PROVIDERS: ADMIT Student in an Organized Health Care Education/Training Program; ATTEND Internal Medicine
PROC: 5A09357 Assistance with Respiratory Ventilation, Less than 24 Consecutive Hours, Continuous Positive Airway Pressure (ICD-10-PCS; principal; 2024-05-15)
PROC: 5A09357 Assistance with Respiratory Ventilation, Less than 24 Consecutive Hours, Continuous Positive Airway Pressure (ICD-10-PCS; 2024-05-16)
DX: T42.6X1A Poisoning by other antiepileptic and sedative-hypnotic drugs, accidental (unintentional), initial encounter (principal); G92.9 Unspecified toxic encephalopathy; Z68.43 Body mass index [BMI] 50.0-59.9, adult; E11.9 Type 2 diabetes mellitus without complications; K58.9 Irritable bowel syndrome, unspecified; G47.33 Obstructive sleep apnea (adult) (pediatric); I10 Essential (primary) hypertension; E78.5 Hyperlipidemia, unspecified; E66.01 Morbid (severe) obesity due to excess calories; F32.9 Major depressive disorder, single episode, unspecified; G47.00 Insomnia, unspecified; F41.9 Anxiety disorder, unspecified; Z88.2 Allergy status to sulfonamides; Z91.041 Radiographic dye allergy status; Z86.73 Personal history of transient ischemic attack (TIA), and cerebral infarction without residual deficits; Z83.3 Family history of diabetes mellitus; Z90.49 Acquired absence of other specified parts of digestive tract; Z87.440 Personal history of urinary (tract) infections; Z82.49 Family history of ischemic heart disease and other diseases of the circulatory system; Y92.89 Other specified places as the place of occurrence of the external cause; Z91.51 Personal history of suicidal behavior
CPT/HCPCS: 36415; 70450; 71045; 80053; 80307; 80320; 80329; 81001; 82962; 83735; 84439; 84443; 85025; 87081; 87086; 87088; 87186; 94660; G0378; J1815; J1885; J2405; J2470

== ENCOUNTER 2024-06-13 13:49 | Emergency (ER) | payer MEDICARE, BC ==
[~2024-06-13] VITALS: Ht 162.6 cm; Wt 102.0 kg
[~2024-06-13 13:49] MED LIST changes: -BACIOIN49 OP; -CIPR-173 PO; -FLUC100T PO; -HYDR-4902 PO; -IBUP-1455 PO; +LIDO5DIS21 TOP; -MORP15TA PO
--- NOTE | 2024-06-13 14:04 | ED.PDOC ---
History of present illness HPI Comments A 64 year old female brought in by EMS presents to the ED with a chief complaint of hypoglycemia onset today. Per EMS patient's blood glucose was 78, was given oral glucose and repeat glucose was 101, patient was also given Zofran for nausea. Patient states she had soup for lunch, shortly after began experiencing nausea, shaking, checked blood glucose and it was 64. Patient states her symptoms have resolved after oral glucose and Zofran were given. Past medical history of DM, HTN, HLD, TIA, UTI, anxiety. Denies abdominal pain, nausea, vomiting, diarrhea, blurry vision, headache, chest pain, shortness of breath, dysuria, hematuria. No other symptoms or modifying factors present at this time. Time Seen by MD: 13:50 Primary Care Provider: BRIDGETTE History of present illness: Medications, Allergies Allergies: Coded Allergies: Indomethacin (Verified Allergy, Unknown, 12/21/09) Sulfa Drugs (Verified Allergy, Unknown, 12/21/09) Home Meds Active Scripts Lidocaine (LIDODERM 5% TOPICAL PATCH) 1 Patch Ph, 1 PATCH TOP DAILY for 30 Days, #30 PATCH Prov:RIDDHI BEYER RESIDENT 05/15/24 Docusate Sodium (Docusate Sodium) 100 Mg Cap, 100 MG PO BIDPRN PRN for 15 Days, #15 CAP Prov:MOUNIKA TILLMAN MD 04/20/24 Fluticasone Propionate (Nasal) (Fluticasone Propionate) 50 Mcg/Act Spr, 50 MCG EACHNOSTRI Q12HR for 30 Days, #2 SPRAY Prov:MOUNIKA TILLMAN MD 04/17/24 Insulin Regular (Human) (Novolin R Flexpen) 100 Unit/Ml Inj, 15 UNIT IJ TID for 28 Days, #100 INJ 15 units before meals, cheack blood sugar 2 hours after meal and add sliding scale Prov:MOUNIKA TILLMAN MD 04/17/24 Insulin Glargine (Lantus Solostar) 100 Unit/Ml Inj, 90 UNITS SC DAILY for 28 Days, #30 INJ Prov:MOUNIKA TILLMAN MD 04/17/24 Dicyclomine Hcl (BENTYL CAPSULE) 10 Mg Cp, 1 CAP PO TID, #30 CAP 11 Refills Prov:MARLI BARAAJS MD 07/09/23 Reported Medications Gabapentin (Gabapentin) 300 Mg Cap, 1 CAP PO TID 04/15/24 Udievvztsieqd-Qjecaigyavm-Ecml (Phenobarbital/Hyoscyamine 16.2 mg) 1 Tab Tab, 1 TAB PO TID 04/15/24 Ondansetron HCl (Ondansetron) 4 Mg Tab, 4 MG PO DAILY PRN for NAUSEA 07/15/23 Zolpidem Tartrate (Zolpidem Tartrate) 10 Mg Tab, 1 TAB PO HS 07/15/23 Pitolisant Hydrochloride (Wakix) 17.8 Mg Tab, 2 TAB PO DAILY for NARCOLEPSY for 90 Days, #180 11/02/21 Fluoxetine Hcl (Fluoxetine Hcl) 20 Mg Cap, 60 MG PO DAILY for 30 Days, MG 08/25/17 Lisinopril (Lisinopril) 10 Mg Tab, 10 MG PO DAILY for 30 Days, MG 07/26/16 Information Source: Patient, Emergency Med Personnel Mode of Arrival: EMS Timing: Minutes Duration: Since onset Prehospital treatment: Other (oral glucose, Zofran ) [place]: Shaky Symptoms: Shaky History of: Diabetes, Insulin use Associated signs and symptoms: Nausea Past Medical History PAST MEDICAL HISTORY: Anxiety, Depression, DM, High Lipids, HTN, TIA, UTI'S Surgical History: Appendectomy, BTL, Cholecystectomy, , Hernia Repair DENTAL FLOSS PACKER History: No Pertinent DENTAL FLOSS PACKER History Family History Family History: Family hx of DM, Family hx of Cancer, Family hx of heart rimma Social History Smoker: Non-Smoker Alcohol: Denies ETOH Use Drugs: Denies Drug Use Lives In: Home Constitutional: reports: weakness; denies: chills, diaphoresis, fatigue, fever, malaise, sweats, others EENTM: denies: blurred vision, double vision, ear bleeding, ear discharge, ear drainage, ear pain, ear ringing, eye pain, eye redness, hearing loss, mouth pain, mouth swelling, nasal discharge, nose bleeding, nose congestion, nose pain, photophobia, tearing, throat pain, throat swelling, voice changes, others Respiratory: denies: cough, hemoptysis, orthopnea, SOB at rest, shortness of breath, SOB with excertion, stridor, wheezing, others Cardiovascular: denies: chest pain, dizzy spells, diaphoresis, Dyspnea on exertion, edema, irregular heart beat, left arm pain, lightheadedness, p alpitations, PND, syncope, others Gastrointestinal: reports: nausea; denies: abdomen distended, abdominal pain, blood streaked bowels, constipated, diarrhea, dysphagia, difficulty swallowing, hematemesis, melena, poor appetite, poor fluid intake, rectal bleeding, rectal pain, vomiting, others Genitourinary: denies: abnormal vagina bleeding, burning, dyspareunia, dysuria, flank pain, frequency, hematuria, incontinence, pain, , vagina di scharge, urgency, others Neurological: denies: dizziness, fainting, headache, left sided numbness, left sided weakness, numbness, paresthesia, pre-existing deficit, right sided numbness, right sided weakness, seizure, speech problems, tingling, tremors, weakness, others Musculoskeletal: denies: back pain, gout, joint pain, joint swelling, muscle pain, muscle stiffness, neck pain, others Integumetry: denies: bruises, change in color, change in hair/nails, dryness, laceration, lesions, lumps, rash, wounds, others Allergic/Immunocompromised: denies: Difficulty Healing, Frequent Infections, Hives, Itching, others Hematologic/Lymphatic: denies: anemia, blood clots, easy bleeding, easy bruising, swollen glands, others Endocrine: denies: excessive hunger, excessive sweating, excessive thirst, excessive urination, flushing, intolerance to cold, intolerance to heat, unexplained weight gain, unexplained weight loss, others Psychiatric: denies: anxiety, bipolar disorder, depression, hopeless, panic disorder, schizophrenia, sleepless, suicidal, others All Other Systems: Reviewed and Negative Physical Exam General Appearance: No Apparent Distress, Normal HEENT: Normal ENT Inspection, Pharynx Normal, TMs Normal Neck: Full Range of Motion, Non-Tender, Normal, Normal Inspection Respiratory: Chest Non-Tender, Lungs Clear, No Accessory Muscle Use, No Respiratory Distress, Normal Breath Sounds Cardiovascular: No Edema, No JVD, No Murmur, No Gallop, Normal Peripheral Pulses, Regular Rate/Rhythm Breast Exam: Deferred Gastrointestinal: No Organomegaly, Non Tender, No Pulsatile Mass, Normal Bowel Sounds, Soft Genitalia: Deferred Pelvic: Deferred Rectal: Deferred Extremities: No calf tenderness, Normal capillary refill, Normal inspection, N ormal range of motion, Non-tender, No pedal edema Musculoskeletal : Apperance: Normal Neurologic: Alert, flask fitter II-XII nml as Tested, No Motor Deficits, Normal Affect, Normal Mood, No Sensory Deficits Cerebellar Function: Normal Reflexes: Normal Skin: Dry, Normal Color, Warm Lymphatic: No Adenopathy Was a procedure done? Was a procedure done?: No Differential Diagnosis (DM) Differential Diagnosis: Dehydration, Gastritis, Hyperglycemia, Hypoglycemia, UTI X-Ray, Labs, Meds, VS Vital Signs Date Time Temp Pulse Resp B/P (MAP) Pulse Ox O2 Delivery O2 Flow Rate FiO2 06/13/24 14:23 99.0 98 24 118/80 (93) 99 Time of 1ST Reevaluation: 14:20 Reevaluation 1ST: Unchanged Patient Education/Counseling: Diagnosis, Treatment, Prognosis Family Education/Counseling: No Family Present Additional Information The following tests were ordered, and results were reviewed by me: CBC, CMP, UA, TROP Independent Historian: EMS I discussed treatment and results with medical personnel, patient Departure 1 Departure Time of Disposition: 21:46 (Patient reports that her symptoms have resolved and she does not want to be here. She then got up from the stretcher and eloped. ) Impression: Primary Impression: Hypoglycemia Additional Impression: Metabolic encephalopathy Disposition: 07 LEFT AWOL/ELOPED Condition: Serious Critical Care Note Critical Care Time?: No Stability Stability form required: No I personally scribed for MARIBELL WESTBROOK MD ([email or web address]) on 06/13/24 at 14:04. Electronically submitted by Nhi Perez ([email or web address]). I personally scribed for MARIBELL WESTBROOK MD ([email or web address]) on 06/13/24 at 14:10. Electronically submitted by Nhi Perez ([email or web address]). MARIBELL WESTBROOK MD Jun 13, 2024 14:04
[2024-06-13 14:23] VITALS: BP 118/80; PULSE 98; RESP 24; O2SAT 99
== END 2024-06-13 17:56 | disposition left against medical advice (07) ==
LOC: EDBD 13:49 → ER 13:49
DX: E11.649 Type 2 diabetes mellitus with hypoglycemia without coma (principal); G93.41 Metabolic encephalopathy; E78.5 Hyperlipidemia, unspecified; F32.A Depression, unspecified; F41.9 Anxiety disorder, unspecified; I10 Essential (primary) hypertension; Z79.4 Long term (current) use of insulin; Z79.899 Other long term (current) drug therapy; Z86.73 Personal history of transient ischemic attack (TIA), and cerebral infarction without residual deficits; Z87.440 Personal history of urinary (tract) infections; Z88.2 Allergy status to sulfonamides; Z90.49 Acquired absence of other specified parts of digestive tract; Z98.51 Tubal ligation status; Z98.890 Other specified postprocedural states

== ENCOUNTER 2024-06-16 22:23 | Inpatient (IN) | payer MEDICARE, BC ==
[~2024-06-16] VITALS: Ht 162.6 cm; Wt 129.1 kg
[2024-06-17] VITALS (7 sets, daily range): BP systolic 120–130; BP diastolic 62–75; PULSE 75–86; RESP 14–18; TEMP 97.4–98.5; O2SAT 93–97
--- NOTE | 2024-06-17 00:01 | DVH ---
CLINICAL HISTORY: abd pain TECHNIQUE: CT of the abdomen and pelvis was performed without intravenous contrast. This exam was per formed according to our departmental dose optimization program. Up-to-date CT equipment and radiation dose reduction techniques are utilized as appropriate. CTDI: [CTDIvol] DLP: 1490.98 WID: COMPARISON: Report from CT CT AB PEL WO CON-NO ORAL OR IV on DOS: 07/11/23 FINDINGS: Lower Thorax: Linear bibasilar scarring or atelectasis. Normal-sized heart. Mitral annular calcifica tions. [id number] aortic valve calcifications and mild coronary artery calcifications partiall y imaged. Liver and Biliary system: Prior cholecystectomy. Otherwise unremarkable. Spleen: Unremarkable aside from a 9 mm calcified distal splenic artery aneurysm on series 2, image 24 . Adrenal Glands and Kidneys: Unremarkable. Pancreas and Retroperitoneum: Mild atrophy of the pancreas. No retroperitoneal lymphadenopathy. Aorta and Major Vessels: Aortoiliac vessels are normal in caliber with mild calcified atherosclerotic plaque. Bowel, Mesentery and Peritoneal space: Normal caliber small and large bowel. Prior appendectomy. Ther e is an ovoid radiopaque structure in the cecum and in the proximal sigmoid colon which may be ingest ed pills. There is no free air or fluid collection. Pelvis: Tiny nondependent gas in the urinary bladder. Otherwise unremarkable pelvis Abdominal wall and Osseous Structures: Small fat containing umbilical hernia. Battery packs in the bi lateral flank with stimulator leads coursing in the posterior body wall and entering the spinal canal at the level of L2-L3, terminating at the level of the T7. Moderate multilevel lower thoracic and l umbar spondylosis. Mild chronic compression fractures of T10 and L1 IMPRESSION: 1. No noncontrast evidence of acute abnormality. 2. [id number] partially imaged aortic valve and mild coronary artery calcifications. 3. 9 mm calcified distal splenic artery aneurysm.
[2024-06-17] MEDS: ONDANSETRON ODT 4 MG TAB PO ONE (00:22)
[2024-06-17 01:00] LABS: Basophils # (auto) 0 10 ^3/uL (0-0.2); Eosinophils # (auto) 0.1 10 ^3/uL (0-0.8); Lymphocytes # (auto) 1.5 10 ^3/uL (0.4-5.4); Monocytes # (auto) 0.5 10 ^3/uL (0-1.3); Red Cell Distribution Width 16.6 % (11.8-14.3); White Blood Cell 6.3 10^3/uL (4.4-10.8)
[2024-06-17 01:02] LABS: Basophils % (auto) 0.4 % (0.0-2.0); Eosinophils % (auto) 2.2 % (0.0-7.0); Hematocrit 40.3 % (36.0-46.0); Lymphocytes % (auto) 23.7 % (10.0-50.0); Mean Corpuscular Hemoglobin 27.2 pg (28.0-32.0); Mean Corpuscular Hgb Conc. 32.4 g/dL (32.0-36.0); Mean Corpuscular Volume 84.2 fL (80.0-100.0); Monocytes % (auto) 7.7 % (0.0-12.0); Neutrophils # (auto) 4.2 10 ^3/uL (1.6-8.6); Platelet Count (auto) 216 10^3/uL (140-450); Red Blood Cells 4.79 10^6/uL (4.0-5.20)
--- NOTE | 2024-06-17 01:30 | ED.PDOC ---
History of present illness HPI Comments Patient was brought in by EMS for low blood sugar. Patient states she was a continuous blood sugar monitor on her. She took 50 units of Lantus then ate dinner. States after dinner she calculated at 15 units of Novolin. She was says she was monitoring her blood sugar on her phone as it kept alarming. It st arted dropping from 50 down to 49 and hitting 45. She had to tbsp of peanut butter with nose improvement. She called EMS. EMS gave one tube of glucose which brought her back up to 126. Patient states it was the 3rd to 4th time her blood sugars have dropped into the 40s. She was not been able to make an appointment with her primary care doctor yet. Patient A&O x4 upon arrival vital signs stable. Patient was was seen here three days ago but left/AMA because she did not want to be admitted and did not think we can do anything for her. Chief Complaint: Hypoglycemia Time Seen by MD: 22:48 Primary Care Provider: QUION History of present illness: Nurses Notes Allergies: Coded Allergies: Indomethacin (Verified Allergy, Unknown, 12/21/09) Sulfa Drugs (Verified Allergy, Unknown, 12/21/09) Home Meds Active Scripts Lidocaine (LIDODERM 5% TOPICAL PATCH) 1 Patch Ph, 1 PATCH TOP DAILY for 30 Days, #30 PATCH Prov:RIDDHI BEYER RESIDENT 05/15/24 Docusate Sodium (Docusate Sodium) 100 Mg Cap, 100 MG PO BIDPRN PRN for 15 Days, #15 CAP Prov:MOUNIKA TILLMAN MD 04/20/24 Fluticasone Propionate (Nasal) (Fluticasone Propionate) 50 Mcg/Act Spr, 50 MCG EACHNOSTRI Q12HR for 30 Days, #2 SPRAY Prov:MOUNIKA TILLMAN MD 04/17/24 Insulin Regular (Human) (Novolin R Flexpen) 100 Unit/Ml Inj, 15 UNIT IJ TID for 28 Days, #100 INJ 15 units before meals, cheack blood sugar 2 hours after meal and add sliding scale Prov:MOUNIKA TILLMAN MD 04/17/24 Insulin Glargine (Lantus Solostar) 100 Unit/Ml Inj, 90 UNITS SC DAILY for 28 Days, #30 INJ Prov:MOUNIKA TILLMAN MD 04/17/24 Dicyclomine Hcl (BENTYL CAPSULE) 10 Mg Cp, 1 CAP PO TID, #30 CAP 11 Refills Prov:MARLI BARAJAS MD 07/09/23 Reported Medications Gabapentin (Gabapentin) 300 Mg Cap, 1 CAP PO TID 04/15/24 Mnhwgddkwngig-Srpzubxhlnk-Qihj (Phenobarbital/Hyoscyamine 16.2 mg) 1 Tab Tab, 1 TAB PO TID 04/15/24 Ondansetron HCl (Ondansetron) 4 Mg Tab, 4 MG PO DAILY PRN for NAUSEA 07/15/23 Zolpidem Tartrate (Zolpidem Tartrate) 10 Mg Tab, 1 TAB PO HS 07/15/23 Pitolisant Hydrochloride (Wakix) 17.8 Mg Tab, 2 TAB PO DAILY for NARCOLEPSY for 90 Days, #180 11/02/21 Fluoxetine Hcl (Fluoxetine Hcl) 20 Mg Cap, 60 MG PO DAILY for 30 Days, MG 08/25/17 Lisinopril (Lisinopril) 10 Mg Tab, 10 MG PO DAILY for 30 Days, MG 07/26/16 Information Source: Patient Mode of Arrival: EMS Past Medical History PAST MEDICAL HISTORY: Anxiety, Depression, DM, High Lipids, HTN, TIA, UTI'S Surgical History: Appendectomy, BTL, Cholecystectomy, , Hernia Repair 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: No Pertinent 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 Family History Family History: Family hx of DM, Family hx of Cancer, Family hx of heart rimma Social History Smoker: Non-Smoker Alcohol: Denies ETOH Use Drugs: Denies Drug Use Lives In: Home Constitutional: denies: chills, diaphoresis, fatigue, fever, malaise, sweats, weakness, others EENTM: denies: blurred vision, double vision, ear bleeding, ear discharge, ear drainage, ear pain, ear ringing, eye pain, eye redness, hearing loss, mouth pain, mouth swelling, nasal discharge, nose bleeding, nose congestion, nose pain, photophobia, tearing, throat pain, throat swelling, voice changes, others Respiratory: denies: cough, hemoptysis, orthopnea, SOB at rest, shortness of breath, SOB with excertion, stridor, wheezing, others Cardiovascular: denies: chest pain, dizzy spells, diaphoresis, Dyspnea on exertion, edema, irregular heart beat, left arm pain, lightheadedness, palpitations, PND, syncope, others Gastrointestinal: denies: abdomen distended, abdominal pain, blood streaked bowels, constipated, diarrhea, dysphagia, difficulty swallowing, hematemesis, melena, nausea, poor appetite, poor fluid intake, rectal bleeding, rectal pain, vomiting, others Genitourinary: denies: abnormal vagina bleeding, burning, dyspareunia, dysuria, flank pain, frequency, hematuria, incontinence, pain, , vagina discharge, urgency, others Neurological: denies: dizziness, fainting, headache, left sided numbness, left sided weakness, numbness, paresthesia, pre-existing deficit, right sided numbness, right sided weakness, seizure, speech problems, tingling, tremors, weakness, others Musculoskeletal: denies: back pain, gout, joint pain, joint swelling, muscle pain, muscle stiffness, neck pain, others Integumetry: denies: bruises, change in color, change in hair/nails, dryness, laceration, lesions, lumps, rash, wounds, others Allergic/Immunocompromised: denies: Difficulty Healing, Frequent Infections, Hives, Itching, others Hematologic/Lymphatic: denies: anemia, blood clots, easy bleeding, easy bruising, swollen glands, others Endocrine: denies: excessive hunger, excessive sweating, excessive thirst, excessive urination, flushing, intolerance to cold, intolerance to heat, unexplained weight gain, unexplained weight loss, others Psychiatric: denies: anxiety, bipolar disorder, depression, hopeless, panic disorder, schizophrenia, sleepless, suicidal, others Physical Exam General Appearance: No Apparent Distress, Normal HEENT: Normal ENT Inspection, Pharynx Normal, TMs Normal Neck: Full Range of Motion, Non-Tender, Normal, Normal Inspection Respiratory: Chest Non-Tender, Lungs Clear, No Accessory Muscle Use, No Respiratory Distress, Normal Breath Sounds Cardiovascular: No Edema, No JVD, No Murmur, No Gallop, Normal Peripheral Pulses, Regular Rate/Rhythm Breast Exam: Deferred Gastrointestinal: No Organomegaly, Non Tender, No Pulsatile Mass, Normal Bowel Sounds, Soft Genitalia: Deferred Pelvic: Deferred Rectal: Deferred Extremities: No calf tenderness, Normal capillary refill, Normal inspection, Normal range of motion, Non-tender, No pedal edema Musculoskeletal : Apperance: Normal Neurologic: Alert, escalator mechanic II-XII nml as Tested, No Motor Deficits, Normal Affect, Normal Mood, No Sensory Deficits Cerebellar Function: Normal Reflexes: Normal Skin: Dry, Normal Color, Warm Lymphatic: No Adenopathy Was a procedure done? Was a procedure done?: No Differential Diagnosis (DM) Differential Diagnosis: Diabetic Coma, DKA, Gastritis, Gastroenteritis, Hyperglycemia, Hyperosmolar State, Hypoglycemia X-Ray, Labs, Meds, VS Vital Signs Date Time Temp Pulse Resp B/P (MAP) Pulse Ox O2 Delivery O2 Flow Rate FiO2 06/16/24 22:55 98.4 70 20 124/43 (70) 92 98.4 06/16/24 22:50 Room Air* 0 21 06/16/24 22:38 98.0 78 18 154/63 (93) 99 Lab Test 06/17/24 00:36 Range/Units White Blood Count 6.3 4.4-10.8 10^3/uL Red Blood Count 4.79 4.0-5.20 10^6/uL Hemoglobin 13.0 12.2-16.2 g/dL Hematocrit 40.3 36.0-46.0 % Mean Corpuscular Volume 84.2 80.0-100.0 fL Mean Corpuscular Hemoglobin 27.2 L 28.0-32.0 pg Mean Corpuscular Hemoglobin Concent 32.4 32.0-36.0 g/dL Red Cell Distribution Width 16.6 H 11.8-14.3 % Platelet Count 216 140-450 10^3/uL Mean Platelet Volume 8.1 6.9-10.8 fL Neutrophils (%) (Auto) 66.0 37.0-80.0 % Lymphocytes (%) (Auto) 23.7 10.0-50.0 % Monocytes (%) (Auto) 7.7 0.0-12.0 % Eosinophils (%) (Auto) 2.2 0.0-7.0 % Basophils (%) (Auto) 0.4 0.0-2.0 % Neutrophils # (Auto) 4.2 1.6-8.6 10 ^3/uL Lymphocytes # (Auto) 1.5 0.4-5.4 10 ^3/uL Monocytes # (Auto) 0.5 0-1.3 10 ^3/uL Eosinophils # (Auto) 0.1 0-0.8 10 ^3/uL Basophils # (Auto) 0 0-0.2 10 ^3/uL Nucleated Red Blood Cells 0.0 % Sodium Level Pending Potassium Level Pending Chloride Level Pending Carbon Dioxide Level Pending Anion Gap Pending Blood Urea Nitrogen Pending Creatinine Pending Glomerular Filtration Rate Calc Pending BUN/Creatinine Ratio Pending Serum Glucose Pending Calcium Level Pending Total Bilirubin Pending Aspartate Amino Transferase (AST) Pending Alanine Aminotransferase (ALT) Pending Alkaline Phosphatase Pending Total Protein Pending Albumin Pending Lipase Pending Current Medications Medications (Trade) Dose Ordered Sig/Feng Route Start Time Stop Time Status Last Admin Ondansetron HCl (Zofran Po) 4 mg ONCE ONCE PO 06/17/24 00:15 06/17/24 00:16 DC 06/17/24 00:22 X-Ray, Labs, Meds, VS Comment Patient will be admitted for uncontrolled diabetes type 2. Concerns of recurrent hypoglycemic events Recommend possible Endocrinology consultation hand adjustments to her Lantus Possible need for a social service consult and home health consult Time of 1ST Reevaluation: 01:29 Reevaluation 1ST: Unchanged Patient Education/Counseling: Diagnosis, Treatment Family Education/Counseling: Diagnosis Departure 1 Departure Time of Disposition: 01:29 Impression: Primary Impression: Hypoglycemia Additional Impression: Uncontrolled diabetes mellitus Qualified Codes: E11.649 - Type 2 diabetes mellitus with hypoglycemia without coma Disposition: ADMITTED INPATIENT Condition: Stable Discharged With: Self Critical Care Note Critical Care Time?: No Stability Stability form required: No Heart Score Heart Score: Heart Score Response (Comments) Value History N/A 0 EKG N/A 0 Age N/A 0 Risk Factors N/A 0 Troponin N/A 0 Total 0 PHIL RAMÍREZ Jun 17, 2024 01:29
[2024-06-17 01:34] LABS: Alanine Aminotransferase 15 U/L (7-40); Albumin 3.9 g/dL (3.2-4.8); Alkaline Phosphatase 98 U/L (46-116); Anion Gap 7 (5-15); Aspartate Aminotransferase 14 U/L (13-40); BUN/Creatinine Ratio 14.7 (10.0-20.0); Blood Urea Nitrogen 10 mg/dL (9-23); Carbon Dioxide 25 mmol/L (20-31); Lipase 30 U/L (12-53); Potassium 3.6 mmol/L (3.5-5.1); Sodium 140 mmol/L (136-145)
[2024-06-17 01:35] LABS: Total Protein 6.1 g/dL (5.7-8.2)
[2024-06-17 01:58] LABS: Bilirubin, Total < 0.2 mg/dL (0.2-1.0); Calcium 8.1 mg/dL (8.7-10.4); Chloride 108 mmol/L (98-107); Glucose 182 mg/dL (74-106)
[2024-06-17 02:54] LABS: Urine Bacteria None Seen /hpf (None Seen)
[2024-06-17 03:31] LABS: Urine Blood Negative /uL (Negative); Urine Budding Yeast OCCASIONAL /hpf (None Seen); Urine Clarity Ex.Turbid (Clear); Urine Color Yellow (Yellow); Urine Mucus FEW (None Seen); Urine Protein, UAD 1+ (Negative); Urine Squamous Epithelial Cell FEW /hpf (<5); Urine Urobilinogen Normal (Negative); Urine WBC 573 /hpf (0 - 5)
[2024-06-17] MEDS ORDERED: DEXTROSE (50%) 50ML SYRG IV PRN (04:00)
[2024-06-17] MEDS: GABAPENTIN 300 MG CAP PO SCH (05:42)
--- NOTE | 2024-06-17 06:19 | DVHHPRES ---
History of Present Illness Resident Creating Document: RAYNA CULLEN RESIDENT History of Present Illness Patient is a 64-year-old female with a past medical history as described below was brought to the ED via EMS after he had hypoglycemia at home. Patient reports since the last 2 weeks she has been having episodes of hypoglycemia recorded on glucometer. She reported that yesterday evening she took her evening dose of Lantus 50 units and her Novolin 15 units which she takes 3 times pre meals and after dinner she checked her blood glucose which was low around 45. Patient had symptoms of shakiness, nausea, dizziness following which she called the EMS. By the time EMS arrived patient had already to peanut butter jelly sandwich and EMS gave her 1 glucose drink. On arrival to the hospital patient's serum glucose was recorded at 182 mg/dL. Patient reports that since last 2-3 weeks she has been not having any appetite and eats less than normal because of the abdominal pain she has ulcerative colitis notes might have flared up she is having diarrhea with loose watery stools, mucous and sometimes associated with blood. Dose of insulin was increased about a month ago and now he takes 80 units Lantus in the morning and 50 units Lantus in the evening with 15 units Novolin before meals. Past medical history: hypertension, type 2 diabetes mellitus, ulcerative colitis sleep apnea, dyslipidemia, recurrent UTI Past surgical history: None reported Social history: Lives alone and denies smoking, alcohol, drug use Home medications: Fluoxetine 60 mg daily, insulin Lantus 50 units hs, 80 units a.m., insulin Novolin 15 units pre meals, phenobarbital/hyoscyamine 16.2 mg t.i.d. for UC, gabapentin 300 mg t.i.d. Review of Systems Review of Systems Patient seen and examined at bedside Reports feeling better and denies sweating, palpitations, nausea, vomiting. Reports mild diffuse abdominal pain 3/10 on intensity which she attributes to he r chronic ulcerative colitis Allergies: Coded Allergies: Indomethacin (Verified Allergy, Unknown, 12/21/09) Sulfa Drugs (Verified Allergy, Unknown, 12/21/09) Medications Current Medications Medications Dose Ordered Sig/Feng Route Start Time Stop Time Status Last Admin Dose Admin Diagnostic Test (Pha) 1 strip ACHS 06/17/24 07:00 Insulin Human Regular HS SC 06/17/24 22:00 Insulin Human Regular AC SC 06/17/24 07:00 Dextrose 50 ml UD PRN IV 06/17/24 04:00 Lisinopril 10 mg DAILY PO 06/17/24 10:00 Gabapentin 300 mg TID PO 06/17/24 06:00 06/17/24 05:42 300 MG Fluoxetine HCl 60 mg DAILY PO 06/17/24 10:00 Exam Vital Signs Vital Signs Date Time Temp Pulse Resp B/P (MAP) Pulse Ox O2 Delivery O2 Flow Rate FiO2 06/17/24 05:00 89 20 128/64 (85) 92 06/16/24 22:55 98.4 98.4 06/16/24 22:50 Room Air* 0 21 Exam Physical Examination Constitutional: Patient is alert and oriented to time place and person and does not appear to be in acute distress. Gen - no pallor, no icterus, no cyanosis, no clubbing, no LAD, no edema . Skin - Patients skin is warm and dry. HEENT - normocephalic, atraumatic, dry mucous membranes. Neck - full ROM, no LAD, no JVD Pulmonary - B/L vesicular breath sounds. no crackles , no wheezing, no stridor. cardiovascular - normal S1,S2 heard. no murmurs heard. peripheral pulses radial 2+, pedal 2+. capillary refill normal <2 secs. GI - soft abdomen without tenderness to palpation . no hepatospleenomegaly. Bowel sounds normoactive Neurological - Patient is A/O X 3 . Bilateral upper extremity strength 5/5, bilateral lower extremity strength 5/5, no facial droop, normal speech, no tremo r, no sensory deficiets. Labs/Xrays Labs Test 06/17/24 02:20 06/17/24 00:36 Range/Units Urine Color Yellow Yellow Urine Clarity Ex.turbid Clear Urine pH 6.0 5.0-9.0 Urine Specific Hulbert 1.030 1.001-1.035 Urine Protein 1+ H Negative Urine Ketones Trace Negative Urine Blood Negative Negative /uL Urine Nitrite 2+ H Negative Urine Bilirubin Negative Negative Urine Urobilinogen Normal Negative mg/dL Urine Leukocyte Esterase 3+ Negative /uL Urine RBC 2 0 - 4 /hpf Urine WBC 573 0 - 5 /hpf Urine Squamous Epithelial Cells Few <5 /hpf Urine Calcium Oxalate Crystals Many None Seen Urine Bacteria None seen None Seen /hpf Urine Mucus Few None Seen Urine Yeast (Budding) Occasional None Seen /hpf Urine Glucose Normal Normal mg/dL White Blood Count 6.3 4.4-10.8 10^3/uL Red Blood Count 4.79 4.0-5.20 10^6/uL Hemoglobin 13.0 12.2-16.2 g/dL Hematocrit 40.3 36.0-46.0 % Mean Corpuscular Volume 84.2 80.0-100.0 fL Mean Corpuscular Hemoglobin 27.2 L 28.0-32.0 pg Mean Corpuscular Hemoglobin Concent 32.4 32.0-36.0 g/dL Red Cell Distribution Width 16.6 H 11.8-14.3 % Platelet Count 216 140-450 10^3/uL Mean Platelet Volume 8.1 6.9-10.8 fL Neutrophils (%) (Auto) 66.0 37.0-80.0 % Lymphocytes (%) (Auto) 23.7 10.0-50.0 % Monocytes (%) (Auto) 7.7 0.0-12.0 % Eosinophils (%) (Auto) 2.2 0.0-7.0 % Basophils (%) (Auto) 0.4 0.0-2.0 % Neutrophils # (Auto) 4.2 1.6-8.6 10 ^3/uL Lymphocytes # (Auto) 1.5 0.4-5.4 10 ^3/uL Monocytes # (Auto) 0.5 0-1.3 10 ^3/uL Eosinophils # (Auto) 0.1 0-0.8 10 ^3/uL Basophils # (Auto) 0 0-0.2 10 ^3/uL Nucleated Red Blood Cells 0.0 % Sodium Level 140 136-145 mmol/L Potassium Level 3.6 3.5-5.1 mmol/L Chloride Level 108 H 98-107 mmol/L Carbon Dioxide Level 25 20-31 mmol/L Anion Gap 7 5-15 Blood Urea Nitrogen 10 9-23 mg/dL Creatinine 0.68 0.550-1.02 mg/dL Glomerular Filtration Rate Calc 97 >90 mL/min BUN/Creatinine Ratio 14.7 10.0-20.0 Serum Glucose 182 H 74-106 mg/dL Calcium Level 8.1 L 8.7-10.4 mg/dL Total Bilirubin < 0.2 L 0.2-1.0 mg/dL Aspartate Amino Transferase (AST) 14 13-40 U/L Alanine Aminotransferase (ALT) 15 7-40 U/L Alkaline Phosphatase 98 46-116 U/L Total Protein 6.1 5.7-8.2 g/dL Albumin 3.9 3.2-4.8 g/dL Lipase 30 12-53 U/L Assessment/Plan Assessment/Plan Assessment # uncontrolled diabetes with hypoglycemia and hyperglycemia - recent HbA1c 10.5% - at home takes insulin Lantus 50 units hs and 80 units a.m. - Novolin 15 units pre meal t.i.d. - patient may benefit from dose management - currently started on moderate insulin sliding scale ACHS - consistent carbohydrate diet # urinary tract infection likely acute cystitis - on ceftriaxone 1 g IV daily - urine culture pending - previous urine culture showed growth of Enterococcus faecalis # hypertensive heart disease - on lisinopril 10 mg daily #h/o ulcerative colitis (diagnosed in 2023) -CT abdomen pelvis without contrast shows no acute abnormality - continue on phenobarbital/hyoscyamine 16.2 mg t.i.d. - outpatient GI follow up # history of depression - continued on fluoxetine 60 mg q.d. # peripheral neuropathy -on gabapentin 300 mg t.i.d. Goals of care discussed with the patient for over 25 minutes. Full code Plan discussed with Dr. Dior Plan discussed with: Patient My Orders Orders - RAYNA CULLEN RESIDENT Procedure Category Date Status Time Admit ADMIT 06/17/24 Transmitted 03:56 Stat Ekg For Chest RAE 06/17/24 In Process Pain 03:56 Urine Bacterial DANE 06/17/24 In Process Culture 04:00 Basic Metabolic Panel LAB 06/17/24 Logged 04:00 Covid19 Antigen Nata LAB 06/17/24 Logged Rapid Influenza A&B LAB 06/17/24 Logged 04:00 Glucose Blood PHA 06/17/24 In Process (Accu-Chek Comfort 07:00 Insulin R (Human) PHA 06/17/24 In Process (Insulin R) 22:00 Insulin R (Human) PHA 06/17/24 In Process (Insulin R) 07:00 Dextrose 50% Syringe PHA 06/17/24 In Process 04:00 Lisinopril Tablet PHA 06/17/24 In Process (Zestril Tablet) 10:00 Gabapentin Capsule PHA 06/17/24 In Process (Neurontin Capsule) 06:00 Fluoxetine Capsule PHA 06/17/24 In Process (Prozac Capsule) 10:00 Code Status CODE 06/17/24 Transmitted 05:12 Date of Service: Jun 17, 2024 Billing Provider: KAROLINA DIOR MD Common Visit Codes: [id number] INP/OBS CARE (HIGH) Secondary Visit Codes: [id number] CARE PLAN 30 MINUTES RAYNA CULLEN RESIDENT Jun 17, 2024 06:19 KAROLINA DIOR MD Jun 17, 2024 11:21
[2024-06-17] MEDS: ACCU-CHEK COMFORT CURVE STRIP VI SCH (06:38)
[2024-06-17] MEDS: InsuLIN REG 1unit/0.01ml Soln (100units/ml) SC SCH ×2 (06:38→21:45)
[2024-06-17 07:39] LABS: Potassium 3.5 mmol/L (3.5-5.1); Sodium 143 mmol/L (136-145)
[2024-06-17 07:40] LABS: Anion Gap 8 (5-15); Carbon Dioxide 27 mmol/L (20-31)
[2024-06-17 07:41] LABS: Calcium 9.6 mg/dL (8.7-10.4)
[2024-06-17 07:43] LABS: Chloride 108 mmol/L (98-107)
[2024-06-17 07:45] LABS: BUN/Creatinine Ratio 20.3 (10.0-20.0); Blood Urea Nitrogen 13 mg/dL (9-23); Glucose 93 mg/dL (74-106)
[2024-06-17 07:59] LABS: COVID19 ANTIGEN SOFIA FIA NEGATIVE (NEGATIVE); Rapid Influenza A Negative (Negative); Rapid Influenza B Negative (Negative)
[2024-06-17 08:50] LABS: Blood Alcohol < 3.0 mg/dL (<10); Magnesium 1.6 mg/dL (1.6-2.6)
[2024-06-17] MEDS: cefTRIAXone 1GM/50ML D5W 50 ML IV ONE (09:04)
[2024-06-17] MEDS: LISINOPRIL 5 MG TAB PO SCH (11:17)
[2024-06-17] MEDS: FLUoxetine HCL 20 MG CAP PO SCH (11:17)
[2024-06-17 11:28] LABS: Folate (Folic Acid) 33.34 ng/mL (>5.38)
[2024-06-17] MEDS ORDERED: guaiFENesin-DM 100/10mg/5ml SYR PO PRN (13:45)
[2024-06-17] MEDS: HYDROcodone-ACET 5/325MG TAB PO PRN (14:56)
[2024-06-17] MEDS: guaiFENesin-DM 100/10mg/5ml SYR PO PRN (14:57)
--- NOTE | 2024-06-17 18:39 | DVHPNRES ---
Progress Note Date Seen: Jun 17, 2024 Resident Creating Document: KIRILL JAMA RESIDENT Medical Necessity Reason Pt with a Central, PICC or Fol: No Subjective Review of Systems Patient is 64 years old female with past medical history of hypertension, diabetes mellitus type 2, hyperlipidemia, TIA, history of recurrent UTI, morbid obesity, ulcerative colitis, anxiety, depression, suspected narcolepsy/cataplexy, history of sedation overdose, history of toxic encephalopathy was brought in to the ER due to hypoglycemic episode. As per patient she had hypoglycemic episode at home with blood sugar level 45 at home and she was feeling shaky, sweaty, dizzy, vertigo button no loss of consciousness. Patient called EMS and but patient reported she had some peanut butter jelly sandwiches before the EMS arrived. EMS also gave patient 1 glucose drink and blood sugar was found after that 182 mg/dL. Patient reported her blood sugar has been fluctuating lately for last several days and she takes insulin 80 mg in the morning and 50 units at night. Also takes insulin regular 15 units before meals. Reported poor appetite due to pain due to ulcerative colitis and which made her it less lately. But patient has been taking insulin regularly. Patient denied any chest pain, shortness of breath, acute joint pain or swelling, with a RC or change in vision. Initial lab workup revealed UTI with leukocyte esterase 3+, WBC 573, RBC 2. 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 Cardiovascular- deny acute chest pain or shortness of breath or cough or palpitation Respiratory- denies cough or short of breath or wheezing Gastrointestinal- denies any rectal bleeding, nausea or vomiting Musculoskeletal-denies acute joint swelling or tenderness or redness Neurological- denies acute dysarthria, dysphagia, change in vision Psychiatry- denies depression or SI or HI Skin- denies acute rash or purpura Objective vital signs Vital Sign Date Time Temp Pulse Resp B/P (MAP) Pulse Ox O2 Delivery O2 Flow Rate FiO2 06/17/24 17:05 97.4 75 14 120/62 (81) 97 97.4 06/17/24 08:54 Room Air* 0 21 medications Current Medications Medications Dose Ordered Sig/Feng Route Start Time Stop Time Status Last Admin Dose Admin Diagnostic Test (Pha) 1 strip ACHS 06/17/24 07:00 06/17/24 11:21 1 STRIP Insulin Human Regular HS SC 06/17/24 22:00 Insulin Human Regular AC SC 06/17/24 07:00 Dextrose 50 ml UD PRN IV 06/17/24 04:00 Lisinopril 10 mg DAILY PO 06/17/24 10:00 06/17/24 11:17 10 MG Gabapentin 300 mg TID PO 06/17/24 06:00 06/17/24 14:30 300 MG Fluoxetine HCl 60 mg DAILY PO 06/17/24 10:00 06/17/24 11:17 60 MG Ceftriaxone Sodium 50 ml @ 100 mls/hr DAILY@09 IV 06/18/24 09:00 Acetaminophen/ Hydrocodone Bitart 1 tab Q6HPRN PRN PO 06/17/24 13:45 06/17/24 14:56 1 TAB Guaifenesin/ Dextromethorphan 15 ml Q6HPRN PRN PO 06/17/24 14:30 06/17/24 14:57 15 ML Examination General examination- patient awake, alert, oriented, conversant HEENT- PEERLA, no acute nasal discharge Cardiovascular- S1-S2 audible, rate and rhythm regular, no murmur Respiratory- CTAB, no wheeze or rhonchi Gastrointestinal-nontender, bowel sound+. Nondistended Musculoskeletal-no acute joint swelling or tenderness or redness# Lower extremity- no leg edema noted Neurological- cranial nerves intact, no acute dysarthria or dysphagia Psychiatry- denies depression or SI or HI Skin- no acute rash or purpura laboratory and microbiology Laboratory Tests 06/17/24 07:17 06/17/24 00:36 Test 06/17/24 07:17 Range/Units Serum Glucose 93 74-106 mg/dL Problem List/Assessment/Plan Problem List/Assessment/Plan # metabolic encephalopathy due to hypoglycemia and UTI # hypoglycemia-resolved # UTI #hypertension, #diabetes mellitus type 2, #hyperlipidemia, #h/o TIA, history of recurrent UTI, # morbid obesity, #ulcerative colitis, #anxiety, depression, # suspected narcolepsy/cataplexy, Continue ceftriaxone 1 g IV daily Continue fluoxetine 60 mg p.o. daily Insulin sliding scale as prescribed Lisinopril 10 mg p.o. daily Continue other medication as prescribed Goals of care/advance care planning; FULL CODE; discussed with the patient >15 minutes PUD prophylaxis: Not needed DVT prophylaxis: Lovenox Plan discussed with Dr. Dior, nursing staff, patient Total time spent on patient evaluation, chart review, assessment and plan, discussion discussion >30 minutes Plan discussed with: Patient Plan discussed with: Patient, Other (RN) My Orders My Orders Orders - KIRILL JAMA Procedure Category Date Status Time Consistent DIET 06/17/24 Transmitted Carb(Ccho)Diabetes Breakfast Ceftriaxone 1gm/50ml PHA 06/18/24 In Process D5w (Rocephin) 09:00 Drug Screen LAB 06/17/24 Logged 08:14 Hydrocodone-Acet PHA 06/17/24 In Process 5/325mg Tab (Powell 13:45 Guaifenesin-Dextromet PHA 06/17/24 In Process Liquid (Robitussin 14:30 Date of Service: Jun 17, 2024 Billing Provider: KAROLINA DIOR MD Common Visit Codes: [id number] INP/OBS CARE(HIGH) KIRILL JAMA Jun 17, 2024 18:39 KAROLINA DIOR MD Jun 18, 2024 11:32
[2024-06-17] MEDS ORDERED: InsuLIN REG 1unit/0.01ml Soln (100units/ml) SC ONE (18:45)
[2024-06-17] MEDS ORDERED: ACCU-CHEK COMFORT CURVE STRIP VI ONE (18:45)
[2024-06-17] MEDS ORDERED: DEXTROSE (50%) 50ML SYRG IV ONE (18:45)
[2024-06-17] MEDS: ENOXAPARIN SOD 40 MG/0.4 ML SYRINGE SC ONE (18:49)
[2024-06-18] VITALS (9 sets, daily range): BP systolic 91–116; BP diastolic 51–70; PULSE 73–93; RESP 10–18; TEMP 97.3–98.3; O2SAT 92–100
[2024-06-18] MEDS ORDERED: DEXTROSE (50%) 50ML SYRG IV PRN (10:00)
[2024-06-18 10:49] LABS: Basophils # (auto) 0 10 ^3/uL (0-0.2); Eosinophils # (auto) 0.1 10 ^3/uL (0-0.8); Mean Corpuscular Hgb Conc. 32.4 g/dL (32.0-36.0); Monocytes # (auto) 0.3 10 ^3/uL (0-1.3); Neutrophils # (auto) 2.5 10 ^3/uL (1.6-8.6)
[2024-06-18 10:52] LABS: Basophils % (auto) 0.5 % (0.0-2.0); Eosinophils % (auto) 2.6 % (0.0-7.0); Hematocrit 40.3 % (36.0-46.0); Hemoglobin 13.1 g/dL (12.2-16.2); Lymphocytes # (auto) 1.2 10 ^3/uL (0.4-5.4); Lymphocytes % (auto) 29.4 % (10.0-50.0); Mean Corpuscular Hemoglobin 27.1 pg (28.0-32.0); Mean Corpuscular Volume 83.5 fL (80.0-100.0); Monocytes % (auto) 7.7 % (0.0-12.0); Neutrophils % (auto) 59.8 % (37.0-80.0); Nucleated Red Blood Cells % 0.2 %; Platelet Count (auto) 190 10^3/uL (140-450); Red Blood Cells 4.83 10^6/uL (4.0-5.20); Red Cell Distribution Width 16.8 % (11.8-14.3); White Blood Cell 4.2 10^3/uL (4.4-10.8)
[2024-06-18 10:55] LABS: Alanine Aminotransferase 14 U/L (7-40); Albumin 3.7 g/dL (3.2-4.8); Alkaline Phosphatase 77 U/L (46-116); Anion Gap 7 (5-15); BUN/Creatinine Ratio 12.1 (10.0-20.0); Calcium 9.3 mg/dL (8.7-10.4); Carbon Dioxide 26 mmol/L (20-31); Chloride 105 mmol/L (98-107); Sodium 138 mmol/L (136-145); Total Protein 5.8 g/dL (5.7-8.2)
[2024-06-18 11:04] LABS: Aspartate Aminotransferase 13 U/L (13-40); Bilirubin, Total 0.2 mg/dL (0.2-1.0); Blood Urea Nitrogen 7 mg/dL (9-23); Glucose 145 mg/dL (74-106); Magnesium 1.5 mg/dL (1.6-2.6); Potassium 3.5 mmol/L (3.5-5.1)
[2024-06-18] MEDS: ACCU-CHEK COMFORT CURVE STRIP VI SCH (11:23)
[2024-06-18] MEDS: ENOXAPARIN SOD 40 MG/0.4 ML SYRINGE SC SCH (11:32)
[2024-06-18] MEDS: ONDANSETRON HCL 4 MG/2 ML VIAL IV PRN (11:34)
[2024-06-18] MEDS: cefTRIAXone 1GM/50ML D5W 50 ML IV SCH (11:35)
[2024-06-18] MEDS: InsuLIN REG 1unit/0.01ml Soln (100units/ml) SC SCH (11:44)
[2024-06-18] MEDS: METOCLOPRAMIDE HCL 5MG/ml INJ 2ml VIAL IV PRN (18:21)
--- NOTE | 2024-06-18 19:00 | DVHPNRES ---
Progress Note Date Seen: Jun 18, 2024 Resident Creating Document: KIRILL JAMA RESIDENT Medical Necessity Reason Pt with a Central, PICC or Fol: No Subjective Review of Systems Patient is 64 years old female with past medical history of hypertension, diabetes mellitus type 2, hyperlipidemia, TIA, history of recurrent UTI, morbid obesity, ulcerative colitis, anxiety, depression, suspected narcolepsy/cataplexy, history of sedation overdose, history of toxic encephalopathy was brought in to the ER due to hypoglycemic episode. As per patient she had hypoglycemic episode at home with blood sugar level 45 at home and she was feeling shaky, sweaty, dizzy, vertigo, no loss of consciousness. Patient called EMS and but patient reported she had some peanut butter jelly sandwiches before the EMS arrived. EMS also gave patient 1 glucose drink and blood sugar was found after that 182 mg/dL. Patient reported her blood sugar has been fluctuating lately for last several days and she takes insulin 80 mg in the morning and 50 units at night. Also takes insulin regular 15 units before meals. Reported poor appetite due to pain due to ulcerative colitis and which made her it less lately. But patient has been taking insulin regularly. Patient denied any chest pain, shortness of breath, acute joint pain or swelling, with a RC or change in vision. Initial lab workup revealed UTI with leukocyte esterase 3+, WBC 573, RBC 2. 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 Cardiovascular- deny acute chest pain or shortness of breath or cough or palpitation Respiratory- denies cough or short of breath or wheezing Gastrointestinal- denies any rectal bleeding, nausea or vomiting Musculoskeletal-denies acute joint swelling or tenderness or redness Neurological- denies acute dysarthria, dysphagia, change in vision Psychiatry- denies depression or SI or HI Skin- denies acute rash or purpura Patient was seen today for clinical evaluation. Labs and chart reviewed. Patient reported feeling nausea and vomiting- watery content. Ordered Zofran p.r.n.. Patient on IV ceftriaxone daily for UTI. Objective vital signs Vital Sign Date Time Temp Pulse Resp B/P (MAP) Pulse Ox O2 Delivery O2 Flow Rate FiO2 06/18/24 17:35 97.9 89 17 91/54 (66) 92 97.9 06/18/24 08:00 Room Air* 0 21 Total Intake and Output 06/17/24 06/17/24 06/18/24 15:00 23:00 07:00 Intake Total 1100 ml 750 ml Output Total 450 ml Balance 1100 ml 300 ml medications Current Medications Medications Dose Ordered Sig/Feng Route Start Time Stop Time Status Last Admin Dose Admin Lisinopril 10 mg DAILY PO 06/17/24 10:00 06/18/24 11:34 10 MG Gabapentin 300 mg TID PO 06/17/24 06:00 06/18/24 15:27 300 MG Fluoxetine HCl 60 mg DAILY PO 06/17/24 10:00 06/18/24 11:33 60 MG Ceftriaxone Sodium 50 ml @ 100 mls/hr DAILY@09 IV 06/18/24 09:00 06/18/24 11:35 100 MLS/HR Acetaminophen/ Hydrocodone Bitart 1 tab Q6HPRN PRN PO 06/17/24 13:45 06/18/24 11:32 1 TAB Guaifenesin/ Dextromethorphan 15 ml Q6HPRN PRN PO 06/17/24 14:30 06/17/24 20:39 15 ML Enoxaparin Sodium 40 mg DAILY SC 06/18/24 10:00 06/18/24 11:32 40 MG Ondansetron HCl 4 mg Q4HPRN PRN IV 06/18/24 09:15 06/18/24 11:34 4 MG Diagnostic Test (Pha) 1 strip ACHS 06/18/24 11:30 06/18/24 17:00 1 STRIP Insulin Human Regular ACHS SC 06/18/24 11:30 06/18/24 11:44 2 UNITS Dextrose 50 ml UD PRN IV 06/18/24 10:00 Metoclopramide HCl 5 mg Q6HPRN PRN IV 06/18/24 16:15 06/18/24 18:21 5 MG Examination General examination- patient awake, alert, oriented, conversant HEENT- PEERLA, no acute nasal discharge Cardiovascular- S1-S2 audible, rate and rhythm regular, no murmur Respiratory- CTAB, no wheeze or rhonchi Gastrointestinal-nontender, bowel sound+. Nondistended Musculoskeletal-no acute joint swelling or tenderness or redness# Lower extremity- no leg edema noted Neurological- cranial nerves intact, no acute dysarthria or dysphagia Psychiatry- denies depression or SI or HI Skin- no acute rash or purpura laboratory and microbiology Laboratory Tests 06/18/24 09:52 Test 06/18/24 09:52 Range/Units Serum Glucose 145 H 74-106 mg/dL Microbiology Date/Time Source Procedure Growth Status 06/17/24 02:20 Voided Urine Urine Culture - Preliminary Resulted Problem List/Assessment/Plan Problem List/Assessment/Plan #Metabolic encephalopathy due to hypoglycemia and UTI # hypoglycemia-resolved # UTI # suspected gastroenteritis #hypertension, #diabetes mellitus type 2, #hyperlipidemia, #h/o TIA, history of recurrent UTI, # morbid obesity, #ulcerative colitis, #anxiety, depression, # suspected narcolepsy/cataplexy, Continue ceftriaxone 1 g IV daily Continue fluoxetine 60 mg p.o. daily Insulin sliding scale as prescribed Lisinopril 10 mg p.o. daily Continue other medication as prescribed Goals of care/advance care planning; FULL CODE; discussed with the patient >15 minutes PUD prophylaxis: Pantonix DVT prophylaxis: Lovenox Plan discussed with Dr. Dior, nursing staff, patient Total time spent on patient evaluation, chart review, assessment and plan, discussion discussion >30 minutes Plan discussed with: Patient Plan discussed with: Patient, Other (RN) My Orders My Orders Orders - KIRILL JAMA RESIDENT Procedure Category Date Status Time Ondansetron Hcl PHA 06/18/24 In Process (Zofran) 09:15 Glucose Blood PHA 06/18/24 In Process (Accu-Chek Comfort 11:30 Insulin R (Human) PHA 06/18/24 In Process (Insulin R) 11:30 Dextrose 50% Syringe PHA 06/18/24 In Process 10:00 Insert Midline ORDERS 06/18/24 Transmitted 10:33 Metoclopramide PHA 06/18/24 In Process Injection (Reglan 16:15 Date of Service: Jun 18, 2024 Billing Provider: KAROLINA DIOR MD Common Visit Codes: [id number] INP/OBS CARE(MOD) KIRILL JAMA RESIDENT Jun 18, 2024 19:00 KAROLINA DIOR MD Jun 19, 2024 08:45
[2024-06-18] MEDS: PANTOPRAZOLE 40 MG/10 ML VIAL INJ IV ONE (20:31)
[2024-06-19 01:00] VITALS: BP 113/58; PULSE 81; RESP 18; TEMP 98.3; O2SAT 92
[2024-06-19 05:00] VITALS: BP 130/67; PULSE 85; RESP 18; TEMP 97.6; O2SAT 94
[2024-06-19 07:10] LABS: Chloride 107 mmol/L (98-107); Potassium 3.9 mmol/L (3.5-5.1); Sodium 140 mmol/L (136-145)
[2024-06-19 07:11] LABS: Anion Gap 7 (5-15); Calcium 9.4 mg/dL (8.7-10.4); Carbon Dioxide 26 mmol/L (20-31)
[2024-06-19 07:16] LABS: BUN/Creatinine Ratio 8.3 (10.0-20.0)
[2024-06-19 07:17] LABS: Magnesium 1.7 mg/dL (1.6-2.6)
[2024-06-19 07:18] LABS: Blood Urea Nitrogen 5 mg/dL (9-23); Glucose 140 mg/dL (74-106)
[2024-06-19 08:00] VITALS: PULSE 66; RESP 18; O2SAT 94
[2024-06-19] MEDS ORDERED: CEPH500C PO (08:07)
[2024-06-19 09:00] VITALS: BP 125/72; PULSE 77; RESP 18; TEMP 98.2; O2SAT 92
[2024-06-19] MEDS: PANTOPRAZOLE 40 MG/10 ML VIAL INJ IV SCH (09:31)
[2024-06-19 11:27] VITALS: BP 125/72; PULSE 85; RESP 18; TEMP 36.8; O2SAT 97
[2024-06-19 12:41] VITALS: BP 111/72; PULSE 70; RESP 18; TEMP 98; O2SAT 100
== END 2024-06-19 12:00 | disposition home or self-care (01) | DRG 637 ==
LOC: ER 22:23 → EDBD 22:23 → OVERFLOW 06-17 03:56 → WEST WING 06-17 09:35
PROVIDERS: ADMIT Internal Medicine; ATTEND Internal Medicine
DX: E11.649 Type 2 diabetes mellitus with hypoglycemia without coma (principal); G93.41 Metabolic encephalopathy; N39.0 Urinary tract infection, site not specified; K51.90 Ulcerative colitis, unspecified, without complications; E11.40 Type 2 diabetes mellitus with diabetic neuropathy, unspecified; Z20.822 Contact with and (suspected) exposure to COVID-19; F32.A Depression, unspecified; F41.9 Anxiety disorder, unspecified; I11.9 Hypertensive heart disease without heart failure; E78.5 Hyperlipidemia, unspecified; G47.411 Narcolepsy with cataplexy; Z90.49 Acquired absence of other specified parts of digestive tract; Z83.3 Family history of diabetes mellitus; Z86.73 Personal history of transient ischemic attack (TIA), and cerebral infarction without residual deficits; Z82.49 Family history of ischemic heart disease and other diseases of the circulatory system; Z88.1 Allergy status to other antibiotic agents; Z79.4 Long term (current) use of insulin
CPT/HCPCS: 36415; 74176; 80048; 80053; 80320; 81001; 82306; 82607; 82746; 82962; 83690; 83735; 84443; 85025; 87086; 87426; 87804; 96365; 96372; 96375; G0378; J1815; J2405; J2470; Q0162

== ENCOUNTER 2024-08-13 02:38 | Inpatient (IN) | payer MEDICARE, BC ==
[2024-08-13] VITALS (8 sets, daily range): BP systolic 111–132; BP diastolic 63–77; PULSE 84–107; RESP 16–18; TEMP 97.5–97.8; O2SAT 90–96
[~2024-08-13] VITALS: Ht 162.6 cm; Wt 130.2 kg
[~2024-08-13 02:38] MED LIST changes: +CEPH500C PO
--- NOTE | 2024-08-13 02:55 | ED.PDOC ---
HPI Comments 64 year old female brought in by EMS presents to the ED with a chief complaint of chest pain onset today (08/13/24) about around 01:30. Patient states she was laying down, using her tablet when she began experiencing chest pain described as a sharp sensation as well as nausea. Patient was diagnosed with costochondritis about 6 months ago. PMHx HTN, DM, CAD, HLD, depression, TIA, UTIs, anxiety. Denies shortness of breath, dizziness vomiting, diarrhea, headache, abdominal pain, fever, dysuria. No other symptoms or modifying factors present at this time. Chief Complaint: Chest Pain Time Seen by MD: 02:45 Primary Care Provider: BRIDGETTE Weathers Notes: Medications, Allergies Allergies: Coded Allergies: Indomethacin (Verified Allergy, Unknown, 12/21/09) Sulfa Drugs (Verified Allergy, Unknown, 12/21/09) Home Meds Active Scripts Cephalexin Monohydrate (Cephalexin) 500 Mg Cap, 500 MG PO BID for 7 Days, #14 CAP Prov:HANNAH SARMIENTO RESIDENT 06/19/24 Lidocaine (LIDODERM 5% TOPICAL PATCH) 1 Patch Ph, 1 PATCH TOP DAILY for 30 Days, #30 PATCH Prov:RIDDHI BEYER RESIDENT 05/15/24 Docusate Sodium (Docusate Sodium) 100 Mg Cap, 100 MG PO BIDPRN PRN for 15 Days, #15 CAP Prov:MOUNIKA TILLMAN MD 04/20/24 Fluticasone Propionate (Nasal) (Fluticasone Propionate) 50 Mcg/Act Spr, 50 MCG EACHNOSTRI Q12HR for 30 Days, #2 SPRAY Prov:MOUNIKA TILLMAN MD 04/17/24 Insulin Regular (Human) (Novolin R Flexpen) 100 Unit/Ml Inj, 15 UNIT IJ TID for 28 Days, #100 INJ 15 units before meals, cheack blood sugar 2 hours after meal and add sliding scale Prov:MOUNIKA TILLMAN MD 04/17/24 Insulin Glargine (Lantus Solostar) 100 Unit/Ml Inj, 90 UNITS SC DAILY for 28 Days, #30 INJ Prov:MOUNIKA TILLMAN MD 04/17/24 Dicyclomine Hcl (BENTYL CAPSULE) 10 Mg Cp, 1 CAP PO TID, #30 CAP 11 Refills Prov:MARLI BARAJAS MD 07/09/23 Reported Medications Gabapentin (Gabapentin) 300 Mg Cap, 1 CAP PO TID 04/15/24 Yklivmjcyfnxn-Xfvsntmssvk-Sdnr (Phenobarbital/Hyoscyamine 16.2 mg) 1 Tab Tab, 1 TAB PO TID 04/15/24 Ondansetron HCl (Ondansetron) 4 Mg Tab, 4 MG PO DAILY PRN for NAUSEA 07/15/23 Zolpidem Tartrate (Zolpidem Tartrate) 10 Mg Tab, 1 TAB PO HS 07/15/23 Pitolisant Hydrochloride (Wakix) 17.8 Mg Tab, 2 TAB PO DAILY for NARCOLEPSY for 90 Days, #180 11/02/21 Fluoxetine Hcl (Fluoxetine Hcl) 20 Mg Cap, 60 MG PO DAILY for 30 Days, MG 08/25/17 Lisinopril (Lisinopril) 10 Mg Tab, 10 MG PO DAILY for 30 Days, MG 07/26/16 Information Source: Patient, Emergency Med Personnel Mode of Arrival: EMS Severity: Moderate Timing: Hours Duration: Since onset Prehospital treatment: None Location: Chest (L) Radiation: No Radiation Quality: Sharp Onset: At Rest Cardiac Risk Factors: Hyperlipidemia, HTN, Diabetes PE Risk Factors: None History of: None Modifying Factors: Nothing Associated Signs and Symptoms: N/V Past Medical History PAST MEDICAL HISTORY: Anxiety, CAD, Depression, DM, High Lipids, HTN, TIA, UTI'S Surgical History: Appendectomy, BTL, Cholecystectomy, , Hernia Repair GEOLOGY ASSOCIATE History: No Pertinent GEOLOGY ASSOCIATE History Family History Family History: Family hx of DM, Family hx of Cancer, Family hx of heart rimma Social History Smoker: Non-Smoker Alcohol: Denies ETOH Use Drugs: Denies Drug Use Lives In: Home Constitutional: denies: chills, diaphoresis, fatigue, fever, malaise, sweats, weakness, others EENTM: denies: blurred vision, double vision, ear bleeding, ear discharge, ear drainage, ear pain, ear ringing, eye pain, eye redness, hearing loss, mouth pain, mouth swelling, nasal discharge, nose bleeding, nose congestion, nose pain, photophobia, tearing, throat pain, throat swelling, voice changes, others Respiratory: denies: cough, hemoptysis, orthopnea, SOB at rest, shortness of breath, SOB with excertion, stridor, wheezing, others Cardiovascular: reports: chest pain; denies: dizzy spells, diaphoresis, Dyspnea on exertion, edema, irregular heart beat, left arm pain, lightheadedness, palpitations, PND, syncope, others Gastrointestinal: reports: nausea; denies: abdomen distended, abdominal pain, blood streaked bowels, constipated, diarrhea, dysphagia, difficulty swallowing, hematemesis, melena, poor appetite, poor fluid intake, rectal bleeding, rectal pain, vomiting, others Genitourinary: denies: abnormal vagina bleeding, burning, dyspareunia, dysuria, flank pain, frequency, hematuria, incontinence, pain, , vagina discharge, urgency, others Neurological: denies: dizziness, fainting, headache, left sided numbness, left sided weakness, numbness, paresthesia, pre-existing deficit, right sided numbness, right sided weakness, seizure, speech problems, tingling, tremors, weakness, others Musculoskeletal: denies: back pain, gout, joint pain, joint swelling, muscle pain, muscle stiffness, neck pain, others Integumetry: denies: bruises, change in color, change in hair/nails, dryness, laceration, lesions, lumps, rash, wounds, others Allergic/Immunocompromised: denies: Difficulty Healing, Frequent Infections, Hives, Itching, others Hematologic/Lymphatic: denies: anemia, blood clots, easy bleeding, easy bruising, swollen glands, others Endocrine: denies: excessive hunger, excessive sweating, excessive thirst, excessive urination, flushing, intolerance to cold, intolerance to heat, unexplained weight gain, unexplained weight loss, others Psychiatric: denies: anxiety, bipolar disorder, depression, hopeless, panic disorder, schizophrenia, sleepless, suicidal, others All Other Systems: Reviewed and Negative Physical Exam General Appearance: No Apparent Distress, Normal HEENT: Normal ENT Inspection, Pharynx Normal, TMs Normal Neck: Full Range of Motion, Non-Tender, Normal, Normal Inspection Respiratory: Chest Non-Tender, Lungs Clear, No Accessory Muscle Use, No Respiratory Distress, Normal Breath Sounds Cardiovascular: No Edema, No JVD, No Murmur, No Gallop, Normal Peripheral Pulses, Regular Rate/Rhythm Breast Exam: Deferred Gastrointestinal: No Organomegaly, Non Tender, No Pulsatile Mass, Normal Bowel Sounds, Soft Genitalia: Deferred Pelvic: Deferred Rectal: Deferred Extremities: No calf tenderness, Normal capillary refill, Normal inspection, Normal range of motion, Non-tender, No pedal edema Musculoskeletal : Apperance: Normal Neurologic: Alert, lead network engineer II-XII nml as Tested, No Motor Deficits, Normal Affect, Normal Mood, No Sensory Deficits Cerebellar Function: Normal Reflexes: Normal Skin: Dry, Normal Color, Warm Lymphatic: No Adenopathy Was a procedure done? Was a procedure done?: No CP Differential Dx Differential Diagnosis: MAT, AZ, PAC's, PVC's Differential Diagnosis: HTN Essential, HTN Accelerated Differential Diagnosis: Gastritis, Myocardial Infarction, Pericarditis X-Ray, Labs, Meds, VS Vital Signs Date Time Temp Pulse Resp B/P (MAP) Pulse Ox O2 Delivery O2 Flow Rate FiO2 08/13/24 03:27 97 08/13/24 02:43 98.2 98 18 128/88 (101) 98 08/13/24 02:40 85 Lab Test 08/13/24 03:32 08/13/24 02:50 Range/Units Troponin I High Sensitivity Pending < 3 L </=34 ng/L White Blood Count 7.3 4.4-10.8 10^3/uL Red Blood Count 5.37 H 4.0-5.20 10^6/uL Hemoglobin 14.2 12.2-16.2 g/dL Hematocrit 44.5 36.0-46.0 % Mean Corpuscular Volume 82.8 80.0-100.0 fL Mean Corpuscular Hemoglobin 26.5 L 28.0-32.0 pg Mean Corpuscular Hemoglobin Concent 32.0 32.0-36.0 g/dL Red Cell Distribution Width 17.2 H 11.8-14.3 % Platelet Count 236 140-450 10^3/uL Mean Platelet Volume 7.9 6.9-10.8 fL Neutrophils (%) (Auto) 59.0 37.0-80.0 % Lymphocytes (%) (Auto) 23.4 10.0-50.0 % Monocytes (%) (Auto) 7.5 0.0-12.0 % Eosinophils (%) (Auto) 9.0 H 0.0-7.0 % Basophils (%) (Auto) 1.1 0.0-2.0 % Neutrophils # (Auto) 4.3 1.6-8.6 10 ^3/uL Lymphocytes # (Auto) 1.7 0.4-5.4 10 ^3/uL Monocytes # (Auto) 0.5 0-1.3 10 ^3/uL Eosinophils # (Auto) 0.7 0-0.8 10 ^3/uL Basophils # (Auto) 0.1 0-0.2 10 ^3/uL Nucleated Red Blood Cells 0.1 % Sodium Level 140 136-145 mmol/L Potassium Level 3.6 3.5-5.1 mmol/L Chloride Level 103 98-107 mmol/L Carbon Dioxide Level 28 20-31 mmol/L Anion Gap 9 5-15 Blood Urea Nitrogen 14 9-23 mg/dL Creatinine 0.66 0.550-1.02 mg/dL Glomerular Filtration Rate Calc 97 >90 mL/min BUN/Creatinine Ratio 21.2 H 10.0-20.0 Serum Glucose 129 H 74-106 mg/dL Calcium Level 10.1 8.7-10.4 mg/dL Time of 1ST Reevaluation: 03:15 Reevaluation 1ST: Unchanged Patient Education/Counseling: Diagnosis, Treatment, Prognosis Family Education/Counseling: No Family Present Additional Information The following tests were ordered, and results were reviewed by me: EKG -x3, BMP, CBC, TROP -x3, XY CHEST Additional Information was gathered from interviewing the following independent historians: EMS I reviewed and agreed with the following test results read by other providers: XY CHEST I discussed treatment and results with medical personnel and: patient Departure 1 Departure Time of Disposition: 03:51 (Patient presented with chest pain that was concerning for possible STEMI, ACS, PE, Pneumonia, Muscle Strain, COPD, Dissection. Data: 1. I ordered and reviewed the result of at least 3 labs including a CBC, BMP, and Troponin. 2. I independently interpreted the following tests: EKG which shows sinus rhythm and Chest X-ray which shows benign chest.Risk:This patient has a high risk of morbidity due to further diagnostic testing or treatment and may suffer from an acute cardiac or respiratory disorder. Workup reveals concern for ACS and patient should be admitted for further workup and possible expert consultation. ) Impression: Primary Impression: Acute chest pain Additional Impression: Shortness of breath Disposition: 09 ADMITTED INPATIENT Admit to: Med Surg Condition: Serious Critical Care Note Critical Care Time?: Yes Critical care comment: Acute chest pain Authorized and Performed by: Maribell Kim MD Total critical care time: Approximately 36 minutes Due to a high probability of clinically significant, life threatening deterioration, the patient required my highest level of preparedness to intervene emergently and I personally spent this critical care time directly and personally managing the patient. This critical care time included obtaining a history; examining the patient; pulse oximetry; ordering and review of studies; arranging urgent treatment with development of a management plan; evaluation of patient's response to treatment; frequent reassessment; and, discussions with other providers. This critical care time was performed to assess and manage the high probability of imminent, life-threatening deterioration that could result in multi-organ failure. It was exclusive of separately billable procedures and treating other patients and teaching time. Please see my other sections and the rest of the note for further information on patient assessment and treatment. Stability Stability form required: No Heart Score Heart Score: Heart Score Response (Comments) Value History Moderate Suspicious 1 EKG Repolarization Disturb 1 Age >65 2 Risk Factors 1 or 2 risk factors 1 Troponin Normal limit 0 Total 5 I personally scribed for MARIBELL KIM MD ([email or web address]) on 08/13/24 at 02:55. Electronically submitted by Nhi Perez ([email or web address]). I personally scribed for MARIBELL KIM MD ([email or web address]) on 08/13/24 at 02:58. Electronically submitted by Nhi Perez ([email or web address]). MARIBELL KIM MD Aug 13, 2024 02:55
[2024-08-13 03:28] LABS: Basophils # (auto) 0.1 10 ^3/uL (0-0.2); Basophils % (auto) 1.1 % (0.0-2.0); Eosinophils # (auto) 0.7 10 ^3/uL (0-0.8); Hemoglobin 14.2 g/dL (12.2-16.2); Lymphocytes # (auto) 1.7 10 ^3/uL (0.4-5.4); Mean Corpuscular Hemoglobin 26.5 pg (28.0-32.0); Nucleated Red Blood Cells % 0.1 %
[2024-08-13 03:30] LABS: Hematocrit 44.5 % (36.0-46.0); Lymphocytes % (auto) 23.4 % (10.0-50.0); Mean Corpuscular Volume 82.8 fL (80.0-100.0); Monocytes # (auto) 0.5 10 ^3/uL (0-1.3); Monocytes % (auto) 7.5 % (0.0-12.0); Neutrophils # (auto) 4.3 10 ^3/uL (1.6-8.6); Platelet Count (auto) 236 10^3/uL (140-450); Red Blood Cells 5.37 10^6/uL (4.0-5.20); Red Cell Distribution Width 17.2 % (11.8-14.3); White Blood Cell 7.3 10^3/uL (4.4-10.8)
[2024-08-13 03:32] LABS: Chloride 103 mmol/L (98-107); Potassium 3.6 mmol/L (3.5-5.1); Sodium 140 mmol/L (136-145)
[2024-08-13 03:33] LABS: Anion Gap 9 (5-15); Calcium 10.1 mg/dL (8.7-10.4); Carbon Dioxide 28 mmol/L (20-31)
[2024-08-13 03:38] LABS: BUN/Creatinine Ratio 21.2 (10.0-20.0); Blood Urea Nitrogen 14 mg/dL (9-23)
[2024-08-13 03:41] LABS: Glucose 129 mg/dL (74-106)
--- NOTE | 2024-08-13 03:52 | DVH ---
CHEST RADIOGRAPH Indication: chest pain Technique: Single frontal view of the chest was obtained Comparison: XY CHEST XRAY 1 VIEW on DOS: 05/14/24, XY CHEST PORTABLE on DOS: 05/03/24, XY CHEST PRATIK BLE on DOS: 04/27/24 IMPRESSION: Heart appears normal in size. The lungs appear clear without focal airspace opacity, effusion, or pn eumothorax. Spinal device and cervical hardware is noted.
[2024-08-13] MEDS ORDERED: NITROGLYCERIN 0.4 MG SL TAB SL PRN (07:00)
[2024-08-13] MEDS ORDERED: MORPHINE SULFATE 4 MG/ML SYR/VIAL IV PRN (07:00)
[2024-08-13] MEDS ORDERED: DEXTROSE (50%) 50ML SYRG IV PRN (07:00)
--- NOTE | 2024-08-13 07:04 | DVHHP2 ---
History of Present Illness Reason for Visit: Chest pain History of Present Illness Dara Anthony is a 64-year-old female with past medical history of CAD, hypertension, hyperlipidemia, diabetes, recurrent UTIs, ulcerative colitis, sleep apnea, diastolic heart failure, narcolepsy, depression, peripheral neuropathy, tubal ligation, , appendectomy, cholecystectomy, lumbar laminectomy, hernia repair, left shoulder repair, 2 Neuro stimulators, neck fusion, bilateral carpal tunnel surgery, and right ankle screws and plates placed in who presents to the ED for chest pain since 1:00 a.m. patient states that she was sitting on a recliner on her tablet when the pain suddenly heme about states that it is 7/10 feels like someone is sitting on her chest and is constant which radiates to her left shoulder. Patient reports that there are no triggering or alleviating factors. Patient also states that she has an appointment to see a shipfitter apprentice coming up this month. Patient denies any shortness of breath, recent trauma or injury, recent sick contacts, recent illnesses, abdominal pain, nausea, vomiting, diarrhea, lightheadedness, weakness, fever, and chills. 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: Periperal neuropathy GI: Other (UC) Psych: Depression Renal/: UTI Endocrine: Diabetes Past Medical History Sleep apnea Diastolic heart failure Past Surgical History: Appendectomy, Cholecystectomy, , Hernia Repair, Other (Lumbar laminectomy who, left shoulder repair, 2 neuro stimulators, neck fusion, bilateral carpal tunnel surgery, right ankle screws and plates), Tubal Ligation Family History: Cancer, Other (Mom with colon cancer) Smoke: No ALCOHOL: none Drugs: None Lives: Alone Domestic Violence: Neg Review of Systems Constitutional: No: Fever, Chills, Sweats, Weakness, Malaise, Other Eyes: No: Pain, Vision change, Conjunctivae inflammation, Eyelid inflammation, Other, Redness ENT: No: Ear pain, Ear discharge, Nose pain, Nose discharge, Nose congestion, Mouth pain, Mouth swelling, Throat pain, Throat swelling, Other Respiratory: No: Cough, Dry, Shortness of breath, SOB with excertion, Wheezing, Hemoptysis, Pleuritic Pain, Sputum, Wheezing, Other Cardiovascular: Chest Pain; No: Palpitations, Orthopnea, Paroxysmal Noc. Dyspnea, Edema, Lt Headedness, Other Genitourinary: No Dysuria, No Frequency, No Incontinence, No Hematuria, No Retention, No Other Musculoskeletal: No: other, neck pain, shoulder pain, arm pain, back pain, hand pain, leg pain, foot pain Skin: No: Rash, Lesions, Jaundice, Bruising, Other Neurological: No: Weakness, Numbness, Incoordination, Change in speech, Co nfusion, Seizures, Other Allergies: Coded Allergies: Sulfa Drugs (Verified Allergy, Mild, rash, 08/13/24) Indomethacin (Verified Adverse Reaction, Mild, migraine, 08/13/24) Exam Vital Signs Vital Signs Date Time Temp Pulse Resp B/P (MAP) Pulse Ox O2 Delivery O2 Flow Rate FiO2 08/13/24 05:20 89 08/13/24 02:43 98.2 18 128/88 (101) 98 General Appearance: Alert, Oriented X3, Cooperative, No acute distress HEENT: Atraumatic, PERRLA, EOMI, Mucous membr. moist/pink Respiratory: Clear to auscultation, Normal air movement Cardiovascular: Regular rate, Normal S1, Normal S2, No murmurs Abdominal: Normal bowel sounds, Soft, No tenderness, No hepatospenomegaly, No masses Extremities: No clubbing, No cyanosis, No edema, Normal pulses, No tenderness/swelling Skin: No rashes, No breakdown, No significant lesion Neuro: Normal gait, Normal speech, Strength at 5/5 X4 ext, Normal tone, Sensation intact Psych/Mental Status: Mental status NL, Mood NL Labs/Xrays Labs Test 08/13/24 03:32 08/13/24 02:50 Range/Units Troponin I High Sensitivity < 3 L </=34 ng/L White Blood Count 7.3 4.4-10.8 10^3/uL Red Blood Count 5.37 H 4.0-5.20 10^6/uL Hemoglobin 14.2 12.2-16.2 g/dL Hematocrit 44.5 36.0-46.0 % Mean Corpuscular Volume 82.8 80.0-100.0 fL Mean Corpuscular Hemoglobin 26.5 L 28.0-32.0 pg Mean Corpuscular Hemoglobin Concent 32.0 32.0-36.0 g/dL Red Cell Distribution Width 17.2 H 11.8-14.3 % Platelet Count 236 140-450 10^3/uL Mean Platelet Volume 7.9 6.9-10.8 fL Neutrophils (%) (Auto) 59.0 37.0-80.0 % Lymphocytes (%) (Auto) 23.4 10.0-50.0 % Monocytes (%) (Auto) 7.5 0.0-12.0 % Eosinophils (%) (Auto) 9.0 H 0.0-7.0 % Basophils (%) (Auto) 1.1 0.0-2.0 % Neutrophils # (Auto) 4.3 1.6-8.6 10 ^3/uL Lymphocytes # (Auto) 1.7 0.4-5.4 10 ^3/uL Monocytes # (Auto) 0.5 0-1.3 10 ^3/uL Eosinophils # (Auto) 0.7 0-0.8 10 ^3/uL Basophils # (Auto) 0.1 0-0.2 10 ^3/uL Nucleated Red Blood Cells 0.1 % Sodium Level 140 136-145 mmol/L Potassium Level 3.6 3.5-5.1 mmol/L Chloride Level 103 98-107 mmol/L Carbon Dioxide Level 28 20-31 mmol/L Anion Gap 9 5-15 Blood Urea Nitrogen 14 9-23 mg/dL Creatinine 0.66 0.550-1.02 mg/dL Glomerular Filtration Rate Calc 97 >90 mL/min BUN/Creatinine Ratio 21.2 H 10.0-20.0 Serum Glucose 129 H 74-106 mg/dL Calcium Level 10.1 8.7-10.4 mg/dL CHEST RADIOGRAPH Indication: chest pain Technique: Single frontal view of the chest was obtained Comparison: XY CHEST XRAY 1 VIEW on DOS: 05/14/24, XY CHEST PORTABLE on DOS: 05/03/24, XY CHEST PORTABLE on DOS: 04/27/24 IMPRESSION: Heart appears normal in size. The lungs appear clear without focal airspace opacity, effusion, or pneumothorax. Spinal device and cervical hardware is noted. Assessment/Plan Assessment/Plan Assessment/Plan: Chest pain rule out ACS Labs UA Troponin negative x2 Chest x-ray noted EKG TSH UDS Mag level Lipid ACS protocol Antiemetics Pain management A.m. labs Last echo on 03/09/2024 EF 55% Echo ordered Diabetes type 2 uncontrolled Hemoglobin A1c ISS and Accu-Cheks History of CAD Continue home medications History of diastolic heart failure Continue home medications Strict I&Os Daily weight History of hypertension Continue home medications History of hyperlipidemia Continue home medications History of ulcerative colitis Continue home medications History of sleep apnea Continue home medications History of depression Continue home medications History of peripheral neuropathy Continue home medications History of UTI Monitor Positive for fentanyl use Counseled patient on substance abuse FEN/PPX cardiac diet hl DVT prophylaxis-not indicated patient ambulating PUD prophylaxis-not indicated no history of GERD or GI bleed home medications reconciled discussed plan of care with patient and nurse Admit to tele Plan discussed with: Patient My Orders Orders - PAULABENTLEY JOE ELECTROENCEPHALOGRAPH TECHNOLOGIST Procedure Category Date Status Time Hemoglobin A1c LAB 08/13/24 Transmitted 06:58 Glucose Blood PHA 08/13/24 Transmitted (Accu-Chek Comfort 07:00 Mild Sliding Scale PHA 08/13/24 Transmitted 07:00 Dextrose 50% Syringe PHA 08/13/24 Transmitted 07:00 Thyroid Stimulating LAB 08/13/24 Transmitted Hormone 06:58 Drug Screen LAB 08/13/24 Transmitted 06:58 Admit ADMIT 08/13/24 Transmitted 06:58 Code Status CODE 08/13/24 Transmitted 06:58 Vital Signs RAE 08/13/24 In Process 06:58 Telescope Repairer RAE 08/13/24 In Process 06:58 Cardiac DIET 08/13/24 Transmitted Diet-2gna,Lofat,Lochol Breakfast Aspirin Tablet PHA 08/13/24 Transmitted 10:00 Lipitor 40mg Hs PHA 08/13/24 Transmitted Hi-Intensity 22:00 Morphine Sulfate PHA 08/13/24 Transmitted Injection 07:00 Acetaminophen Tablet PHA 08/13/24 Transmitted (Tylenol Tablet) 07:00 Complete Blood Count LAB 08/14/24 Verified 04:00 Basic Metabolic Panel LAB 08/14/24 Verified 04:00 Ondansetron Hcl PHA 08/13/24 Transmitted (Zofran) 07:00 Electrocardigram EKG 08/14/24 Logged 04:00 Troponin-I Hs LAB 08/13/24 Transmitted 06:58 Cardiac RAE 08/13/24 In Process Rehabilitation - Outpa Nitroglycerin PHA 08/13/24 Transmitted Sublingual (Ntrostat 07:00 Morphine Sulfate PHA 08/13/24 Transmitted Injection 07:00 Stat Ekg For Chest RAE 08/13/24 In Process Pain 06:58 Notify Of Changes RAE 08/13/24 In Process From Base 06:58 Warehouse Administrative Assistant For RAE 08/13/24 In Process 24 Hours 06:58 Emergency Dysrhythmia RAE 08/13/24 In Process Protocol 06:58 Rhythm Strips Once RAE 08/13/24 In Process Every Shift 06:58 Oxygen By Nasal RT 08/13/24 Transmitted Cannula 06:58 Date of Service: Aug 13, 2024 Billing Provider: BENTLEY BRISCOE Common Visit Codes: [id number] INP/OBS CARE (HIGH) BENTLEY BRISCOE Aug 13, 2024 07:04
[2024-08-13 07:39] LABS: Barbiturate Scree,Urine Neg (NEGATIVE)
[2024-08-13 07:43] LABS: Amphetamine Screen, Urine Neg (NEGATIVE); Benzodiazephine Screen, Urine Neg (NEGATIVE); Cannabinoid Screen, Urine Neg (NEGATIVE); Cocaine Screen, Urine Neg (NEGATIVE); Opiate Scree,Urine Neg (NEGATIVE); Phencyclidine Screen, Urine Neg (NEGATIVE)
[2024-08-13] MEDS: ACCU-CHEK COMFORT CURVE STRIP VI SCH (08:28)
[2024-08-13] MEDS: InsuLIN REG 1unit/0.01ml Soln (100units/ml) SC SCH (08:28)
[2024-08-13] MEDS: ONDANSETRON HCL 4 MG/2 ML VIAL IV PRN (08:28)
[2024-08-13] MEDS: MORPHINE SULFATE INJ 2 MG/ml SYRG IV PRN (08:29)
[2024-08-13 08:41] LABS: LDL Cholesterol 90 mg/dL (< 100)
[2024-08-13 08:42] LABS: HDL Cholesterol 46 mg/dL (40-59)
[2024-08-13 08:43] LABS: Cholesterol 153 mg/dL (< 200); Triglycerides 263 mg/dL (< 150)
--- NOTE | 2024-08-13 09:57 | ECG ---
[facility] Test Date: 2024-08-13 Test Time: 03:27:57 Pat Name: ELVIS CONCEPCION Department: er Room: 0245T Gender: F Package Drier: ER : 1960 Requested By: MARIBELL WESTBROOK Order Number: [id number] Reading MD: Alonzo Aceves Measurements Intervals [place] Rate: 97 P: 73 MS: 165 QRS: -59 QRSD: 89 T: 68 QT: 351 QTc: 446 Interpretive Statements Sinus rhythm LAD, consider left anterior fascicular block Baseline wander in lead(s) II,III,aVL,aVF,V1,V2,V3,V4,V5,V6 Electronically Signed On 08-13-2024 22:26:47 PST by Alonzo Aceves Please click the below link to view image of tracing.
--- NOTE | 2024-08-13 09:57 | ECG ---
[facility] Test Date: 2024-08-13 Test Time: 02:37:56 Pat Name: ELVIS CONCEPCION Department: ER Room: 0245T Gender: F Ortho/Prosthetic Aide: ER : 1960 Requested By: MARIBELL WESTBROOK Order Number: [id number] Reading MD: Alonzo Aceves Measurements Intervals [place] Rate: 85 P: 25 MI: 165 QRS: -41 QRSD: 82 T: 51 QT: 354 QTc: 421 Interpretive Statements Sinus rhythm Left axis deviation Abnormal R-wave progression, late transition Baseline wander in lead(s) II Electronically Signed On 08-13-2024 22:26:44 PST by Alonzo Aceves Please click the below link to view image of tracing.
[2024-08-13] MEDS ORDERED: [UNRECOGNIZED DRUG - OTHER] PO SCH (10:00)
[2024-08-13] MEDS: ASPirin 81 mg TAB PO SCH (10:09)
[2024-08-13] MEDS: LISINOPRIL 5 MG TAB PO SCH (11:30)
[2024-08-13] MEDS: FLUoxetine HCL 20 MG CAP PO SCH (11:33)
[2024-08-13] MEDS: FLUTICASONE PROP NASAL SPR 0.05 % (50MCG) 16GM EACHNOSTRI SCH (11:33)
[2024-08-13] MEDS: ACETAMINOPHEN 325 MG TAB PO PRN (11:33)
[2024-08-13] MEDS: GABAPENTIN 300 MG CAP PO SCH (13:45)
[2024-08-13] MEDS: [UNRECOGNIZED DRUG - OTHER] PO SCH (14:00)
--- NOTE | 2024-08-13 15:34 | DVHSR ---
APPROVED REPORT EXAM: LIMITED Two-dimensional and M-mode echocardiogram with Doppler and color Doppler. Blood Pressure: 115/71 mmHg INDICATION Chest Pain RISK FACTORS Obesity: Height: 5' 4", Weight: 285 DIMENSIONS LVDd4.8 (3.8-5.7cm)LA (2D)3.5 (1.9-4.0cm)Aortic Root3.2 (2.0-3.7cm) LVDs2.9 (2.5-4.0cm)LA (MM) (1.9-4.0cm)Aortic Cusp Exc1.4 (1.5-2.0cm) EF (%) 70.0 (55-70%)Rt. Atrium3.7 (1.9-4.0cm)Asc. Aorta cm IVSd1.3 (0.7-1.1cm)RV (D) (1.8-2.4cm) PWd1.2 (0.7-1.1cm) Mitral Valve MitralMitral Stenosis E wave0.90m/sMV Mean GR.mmHg A wave1.30m/sMV Peak GR.mmHg E/A ratio0.72D MVAcm2 Aortic Valve Aortic ValveAortic Stenosis V11.10m/Sherron Mean GR.25mmHg V23.30m/Sherron Peak GR.45mmHg LVOT Diameter2.2 (1.8-2.4cm)Doppler AVA1.27cm2 AI P 1/2 Wubo233.21ms Pulmonic Valve V20.80m/s Other Information Quality : LimitedRhythm : Technically limited study due to body habitus. Conclusion lvef 65% normal LV function normal RV function normal atria moderate aortic stenosis, mean gfradient of 26 mmhg normal pericardium
[2024-08-13] MEDS ORDERED: DULO60CA41 PO ×2 (18:41)
[2024-08-13] MEDS ORDERED: MESA400C5 PO ×2 (18:46)
[2024-08-13] MEDS ORDERED: METO25TA5 PO ×2 (18:46)
[2024-08-13] MEDS ORDERED: SEMA2INJ3 SC ×2 (18:47)
[2024-08-13] MEDS: ZOLPIDEM TARTRATE 5 MG TAB PO SCH (21:44)
[2024-08-13] MEDS: ATORVASTATIN 20 MG TAB PO SCH (21:44)
[2024-08-13] MEDS: HYDROcodone-ACET 5/325MG TAB PO PRN (21:45)
[2024-08-14] VITALS (12 sets, daily range): BP systolic 100–149; BP diastolic 50–89; PULSE 88–139; RESP 17–19; TEMP 97.3–98; O2SAT 90–97
[2024-08-14 07:02] LABS: Basophils # (auto) 0.1 10 ^3/uL (0-0.2); Basophils % (auto) 0.7 % (0.0-2.0); Eosinophils # (auto) 0.8 10 ^3/uL (0-0.8); Eosinophils % (auto) 10.2 % (0.0-7.0); Hemoglobin 12.8 g/dL (12.2-16.2); Lymphocytes # (auto) 2.1 10 ^3/uL (0.4-5.4); Lymphocytes % (auto) 26.9 % (10.0-50.0); Mean Corpuscular Hemoglobin 27.1 pg (28.0-32.0); Mean Corpuscular Hgb Conc. 32.8 g/dL (32.0-36.0); Mean Corpuscular Volume 82.6 fL (80.0-100.0); Monocytes # (auto) 0.6 10 ^3/uL (0-1.3); Monocytes % (auto) 7.8 % (0.0-12.0); Neutrophils # (auto) 4.2 10 ^3/uL (1.6-8.6); Neutrophils % (auto) 54.4 % (37.0-80.0); Nucleated Red Blood Cells % 0.1 %; Platelet Count (auto) 232 10^3/uL (140-450); Red Blood Cells 4.72 10^6/uL (4.0-5.20); Red Cell Distribution Width 16.6 % (11.8-14.3); White Blood Cell 7.8 10^3/uL (4.4-10.8)
[2024-08-14 07:19] LABS: Anion Gap 11 (5-15); Carbon Dioxide 25 mmol/L (20-31); Chloride 102 mmol/L (98-107); Potassium 4.4 mmol/L (3.5-5.1); Sodium 138 mmol/L (136-145)
[2024-08-14 07:20] LABS: Calcium 9.4 mg/dL (8.7-10.4)
[2024-08-14 07:25] LABS: BUN/Creatinine Ratio 27.4 (10.0-20.0); Blood Urea Nitrogen 20 mg/dL (9-23)
[2024-08-14 07:26] LABS: Glucose 213 mg/dL (74-106)
[2024-08-14] MEDS: [UNRECOGNIZED DRUG - OTHER] PO SCH (10:00)
--- NOTE | 2024-08-14 11:04 | DVHINCON2 ---
JACY FUENTES [facility] 08/14/24 1104: Date Seen: Aug 14, 2024 Referring Physician MD Fany Reason for Consultation Chest pain History of Present Illness This is a 64-year-old female patient who presents to the emergency room with chief complaint of chest pain. The patient states that the chest pain began yesterday at approximately 1:30 a.m. while she was in her recliner and using her tablet. She describes the chest pain as unprovoked, intermittent, pressure-like in nature, left-sided with radiation to her shoulder. She denies any associated symptoms. She states that she waited approximately 1 hour and became concerned and decided to call emergency medical services. She was brought to the emergency room for further evaluation. Initial twelve lead electrocardiogram reveals normal sinus rhythm without any significant ST segment changes. Serial troponin levels have been negative. Significant past medical history includes aortic valve stenosis, hypertension, dyslipidemia, type 2 diabetes mellitus, TIA, narcolepsy, cataplexy, gastritis, ulcerative colitis, obstructive sleep apnea with CPAP use at night, and morbid obesity. Of note, the patient was seen at this facility and underwent a coronary angiogram on 03/09/2024 which revealed normal coronary arteries without significant atherosclerotic plaquing, thus no catheter based intervention was needed. Past Medical History Past medical history reviewed. No other significant than mentioned above. Past Surgical History Open reduction internal fixation right trimalleolar ankle fracture Back surgery Family History: Colon cancer G8 MOTHER, Depression G8 MOTHER, Diabetes mellitus G8 MOTHER, G8 BROTHER Family history: Diabetes mellitus G8 MOTHER, (mother) G8 BROTHER (older brother) Family history: Hypertension G8 BROTHER (brothers) Ischemic heart disease G8 MOTHER, Prostate carcinoma G8 FATHER, Family History Family history reviewed. Social History Denies the use of tobacco, alcohol or illicit drugs. Of note, toxicology screen positive for fentanyl. Allergies: Coded Allergies: Sulfa Drugs (Verified Allergy, Mild, rash, 08/13/24) Indomethacin (Verified Adverse Reaction, Mild, migraine, 08/13/24) Home Meds Active Scripts Docusate Sodium (Docusate Sodium) 100 Mg Cap, 100 MG PO BIDPRN PRN for 15 Days, #15 CAP Prov:MOUNIKA TILLMAN MD 04/20/24 Fluticasone Propionate (Nasal) (Fluticasone Propionate) 50 Mcg/Act Spr, 50 MCG EACHNOSTRI Q12HR for 30 Days, #2 SPRAY Prov:MOUNIKA TILLMAN MD 04/17/24 Insulin Regular (Human) (Novolin R Flexpen) 100 Unit/Ml Inj, 15 UNIT IJ TID for 28 Days, #100 INJ 15 units before meals, cheack blood sugar 2 hours after meal and add sliding scale Prov:MOUNIKA TILLMAN MD 04/17/24 Insulin Glargine (Lantus Solostar) 100 Unit/Ml Inj, 90 UNITS SC DAILY for 28 Days, #30 INJ Prov:MOUNIKA TILLMAN MD 04/17/24 Reported Medications Semaglutide (Ozempic) 2 Mg/3 Ml Inj, 2 MG SC, INJ 08/13/24 Metoprolol Tartrate (Metoprolol Tartrate) 25 Mg Tab, 1 TAB PO BID, #180 TAB 1 Refill 08/13/24 Mesalamine (Mesalamine Dr) 400 Mg Cap, 400 MG PO, CAP 08/13/24 Duloxetine Hcl (Cymbalta) 60 Mg Cap, 1 CAP PO DAILY, #90 CAP 3 Refills 08/13/24 Ondansetron HCl (Ondansetron) 4 Mg Tab, 4 MG PO DAILY PRN for NAUSEA 07/15/23 Zolpidem Tartrate (Zolpidem Tartrate) 10 Mg Tab, 1 TAB PO HS 07/15/23 Pitolisant Hydrochloride (Wakix) 17.8 Mg Tab, 2 TAB PO DAILY for NARCOLEPSY for 90 Days, #180 11/02/21 Lisinopril (Lisinopril) 10 Mg Tab, 10 MG PO DAILY for 30 Days, MG 07/26/16 Home Meds Home medications reviewed. Current Medications Current Medications Medications (Trade) Dose Ordered Sig/Feng Route PRN Reason Start Time Stop Time Status Last Admin Atorvastatin Calcium (Lipitor) 40 mg HS PO 08/13/24 22:00 08/13/24 21:44 Gabapentin (Neurontin Capsule) 300 mg TID PO 08/13/24 14:00 08/14/24 05:57 Lisinopril (Zestril Tablet) 10 mg DAILY PO 08/13/24 11:30 Patient Own Medication 1 tab TID PO 08/13/24 14:00 Zolpidem Tartrate (Ambien) 10 mg QHSP PO 08/13/24 22:00 08/13/24 21:44 Patient Own Medication 2 tab DAILY PO 08/14/24 10:00 Acetaminophen/ Hydrocodone Bitart ([place] 5/325MG Tab) 1 tab Q6HPRN PRN PO MODERATE PAIN (4-6 PAIN SCALE) 08/13/24 18:30 08/14/24 05:57 Review of Systems Constitutional: No symptom reported Ears, Nose, & Throat: No symptom reported Eyes: No symptom reported Neurological: No symptoms reported Pulmonary/Respiratory: No symptoms reported Cardiovascular: Chest pain Gastrointestinal: No symptom reported Genitourinary: No symptom reported Musculoskeletal: No symptom reported Skin: No symptom reported Psychiatric: No symptom reported Endocrine: No symptom reported Hematologic/Lymphatic: No symptom reported Vital Signs Vital Signs Date Time Temp Pulse Resp B/P (MAP) Pulse Ox O2 Delivery O2 Flow Rate FiO2 08/14/24 10:30 99 18 129/69 08/14/24 09:00 97.6 92 97.6 08/14/24 06:48 Room Air 0.0 08/14/24 05:55 30 Physical Exam General Appearance: Cooperative. Morbidly obese Pulmonary/Respiratory: Clear, bilateral breaths sounds. Cardiovascular/Chest: Regular rate and rhythm. Peripheral Pulses: 2+ Radial (R). 2+ Radial (L). 2+ Pedal (R). 2+ Pedal (L) Abdominal Exam: Normal bowel sounds. Ankle Exam: Negative ankle edema Lower extremities: Negative lower extremity edema Neuro/Mental Status: A/OX4, coherent. Thoughts/Psych: Normal thought pattern. Appropriate mood and affect. Good judgment and insight. Appearance: No acute distress. Skin Exam: Normal inspection. Normal color. Warm and dry. Labs/Diagnostic Data Labs Test 08/14/24 07:04 08/14/24 06:06 08/13/24 09:25 08/13/24 07:21 Range/Units POC Glucose 239 H 70-106 mg/dl White Blood Count 7.8 4.4-10.8 10^3/uL Red Blood Count 4.72 4.0-5.20 10^6/uL Hemoglobin 12.8 12.2-16.2 g/dL Hematocrit 39.0 # 36.0-46.0 % Mean Corpuscular Volume 82.6 80.0-100.0 fL Mean Corpuscular Hemoglobin 27.1 L 28.0-32.0 pg Mean Corpuscular Hemoglobin Concent 32.8 32.0-36.0 g/dL Red Cell Distribution Width 16.6 H 11.8-14.3 % Platelet Count 232 140-450 10^3/uL Mean Platelet Volume 8.0 6.9-10.8 fL Neutrophils (%) (Auto) 54.4 37.0-80.0 % Lymphocytes (%) (Auto) 26.9 10.0-50.0 % Monocytes (%) (Auto) 7.8 0.0-12.0 % Eosinophils (%) (Auto) 10.2 H 0.0-7.0 % Basophils (%) (Auto) 0.7 0.0-2.0 % Neutrophils # (Auto) 4.2 1.6-8.6 10 ^3/uL Lymphocytes # (Auto) 2.1 0.4-5.4 10 ^3/uL Monocytes # (Auto) 0.6 0-1.3 10 ^3/uL Eosinophils # (Auto) 0.8 0-0.8 10 ^3/uL Basophils # (Auto) 0.1 0-0.2 10 ^3/uL Nucleated Red Blood Cells 0.1 % Sodium Level 138 136-145 mmol/L Potassium Level 4.4 3.5-5.1 mmol/L Chloride Level 102 98-107 mmol/L Carbon Dioxide Level 25 20-31 mmol/L Anion Gap 11 5-15 Blood Urea Nitrogen 20 9-23 mg/dL Creatinine 0.73 0.550-1.02 mg/dL Glomerular Filtration Rate Calc 91 >90 mL/min BUN/Creatinine Ratio 27.4 H 10.0-20.0 Serum Glucose 213 H 74-106 mg/dL Calcium Level 9.4 8.7-10.4 mg/dL Magnesium Level 1.8 1.6-2.6 mg/dL Troponin I High Sensitivity 3 L </=34 ng/L Triglycerides Level 263 H < 150 mg/dL Cholesterol Level 153 < 200 mg/dL LDL Cholesterol 90 < 100 mg/dL HDL Cholesterol 46 40-59 mg/dL Test 08/13/24 06:00 08/13/24 02:50 Range/Units Urine Opiates Screen Neg NEGATIVE Urine Fentanyl Screen Pos NEGATIVE Urine Barbiturates Screen Neg NEGATIVE Urine Phencyclidine Screen Neg NEGATIVE Urine Amphetamines Screen Neg NEGATIVE Urine Benzodiazepines Screen Neg NEGATIVE Urine Cocaine Screen Neg NEGATIVE Urine Cannabinoids Screen Neg NEGATIVE Hemoglobin A1c 8.1 H <5.7 % A1C Thyroid Stimulating Hormone (TSH) 2.81 0.55-4.78 uIU/mL Assessment Chest pain, likely noncardiac Moderate aortic valve stenosis Hypertension Dyslipidemia Type 2 diabetes mellitus, uncontrolled (Hgb A1c 8.1%) History of TIA Narcolepsy Cataplexy Obstructive sleep apnea with CPAP use at night Morbid obesity Plan/Recommendation We will continue with the following plan/recommendations (Dr. French): Case reviewed and discussed with . Transthoracic echocardiogram reveals EF 65% with moderate aortic stenosis. Given the patient's clinical presentation, unremarkable twelve lead electrocardiogram, and negative troponin level, doubt ACS. The patient was seen at this facility and underwent a coronary angiogram on 03/09/2024 which revealed normal coronary arteries without significant atherosclerotic plaquing, thus no catheter based intervention was n eeded. There is no further inpatient cardiac workup indicated at this time. The patient will need to follow up with Cardiology in the outpatient setting regarding aortic stenosis. Thank you for allowing us to care for this patient. Please call with any questions or concerns. Critical care time spent: 44 minutes This medical document was created using an electronic medical record system with voice recognition software and computerized dictation system. Although this document has been carefully reviewed, there might still be some phonetic and typographical errors. Occasional wrong-word or ``sound-alike substitutions may have occurred due to the inherent limitations of voice recognition software. These areas are purely typographical due to imperfections of the software programs and do not reflect any compromise in the patient's medical care. Please read the chart carefully and recognize, using context, where these substitutions have occurred. Plan discussed with: Patient NYHA Physical activity limitations: NA Date of Service: Aug 14, 2024 Billing Provider: JACY FUENTES Cardiology Common Codes: [id number] INP/OBS CARE (High) Cardiology Consultation Codes: [id number] CONSULT <45MIN HUANG FRENCH MD 08/14/24 4949: Family History: Colon cancer G8 MOTHER, Depression G8 MOTHER, Diabetes mellitus G8 MOTHER, G8 BROTHER Family history: Diabetes mellitus G8 MOTHER, (mother) G8 BROTHER (older brother) Family history: Hypertension G8 BROTHER (brothers) Ischemic heart disease G8 MOTHER, Prostate carcinoma G8 FATHER, Allergies: Coded Allergies: Sulfa Drugs (Verified Allergy, Mild, rash, 08/13/24) Indomethacin (Verified Adverse Reaction, Mild, migraine, 08/13/24) Home Meds Active Scripts Docusate Sodium (Docusate Sodium) 100 Mg Cap, 100 MG PO BIDPRN PRN for 15 Days, #15 CAP Prov:MOUNIKA TILLMAN MD 04/20/24 Fluticasone Propionate (Nasal) (Fluticasone Propionate) 50 Mcg/Act Spr, 50 MCG EACHNOSTRI Q12HR for 30 Days, #2 SPRAY Prov:MOUNIKA TILLMAN MD 04/17/24 Insulin Regular (Human) (Novolin R Flexpen) 100 Unit/Ml Inj, 15 UNIT IJ TID for 28 Days, #100 INJ 15 units before meals, cheack blood sugar 2 hours after meal and add sliding scale Prov:MOUNIKA TILLMAN MD 04/17/24 Insulin Glargine (Lantus Solostar) 100 Unit/Ml Inj, 90 UNITS SC DAILY for 28 Days, #30 INJ Prov:MOUNIKA TILLMAN MD 04/17/24 Reported Medications Semaglutide (Ozempic) 2 Mg/3 Ml Inj, 2 MG SC, INJ 08/13/24 Metoprolol Tartrate (Metoprolol Tartrate) 25 Mg Tab, 1 TAB PO BID, #180 TAB 1 Refill 08/13/24 Mesalamine (Mesalamine Dr) 400 Mg Cap, 400 MG PO, CAP 08/13/24 Duloxetine Hcl (Cymbalta) 60 Mg Cap, 1 CAP PO DAILY, #90 CAP 3 Refills 08/13/24 Ondansetron HCl (Ondansetron) 4 Mg Tab, 4 MG PO DAILY PRN for NAUSEA 07/15/23 Zolpidem Tartrate (Zolpidem Tartrate) 10 Mg Tab, 1 TAB PO HS 07/15/23 Pitolisant Hydrochloride (Wakix) 17.8 Mg Tab, 2 TAB PO DAILY for NARCOLEPSY for 90 Days, #180 11/02/21 Lisinopril (Lisinopril) 10 Mg Tab, 10 MG PO DAILY for 30 Days, MG 07/26/16 Plan/Recommendation frequent admits, +fentanyl morbid obesity [facility] images reviewed, no cad non cardiac chest pain will sign off Date of Service: Aug 14, 2024 Billing Provider: HUANG FRENCH MD Cardiology Common Codes: NOT BILLABLE JACY FUENTES Aug 14, 2024 11:04 HUANG FRENCH MD Aug 14, 2024 17:51
--- NOTE | 2024-08-14 13:32 | DVHPN2 ---
Reviewed: Care Plan, H&P, Labs, Medications, Previous Orders, Radiology Changes from previous H/P or p: No Changes General: Per HPI Eyes: No Pain, No Vision change, No Conjunctivae inflammation, No Eyelid inflammation, No Other, No Redness ENT: No Ear pain, No Ear discharge, No Nose pain, No Nose discharge, No Nose congestion, No Mouth pain, No Mouth swelling, No Throat pain, No Throat swelling, No Other Cardiovascular: Chest Pain; No Palpitations, No Orthopnea, No Paroxysmal Noc. Dyspnea, No Edema, No Lt Headedness, No Other Respiratory: No Cough, No Dry, No Shortness of breath, No SOB with excertion, No Wheezing, No Hemoptysis, No Pleuritic Pain, No Sputum, No Other Genitourinary: No Dysuria, No Frequency, No Incontinence, No Hematuria, No Retention, No Other Musculoskeletal: No other, No neck pain, No shoulder pain, No arm pain, No back pain, No hand pain, No leg pain, No foot pain Skin: No Rash, No Lesions, No Jaundice, No Bruising, No Other Objective Vitals Vital Signs Date Time Temp Pulse Resp B/P (MAP) Pulse Ox O2 Delivery O2 Flow Rate FiO2 08/14/24 11:00 97 18 129/85 08/14/24 09:00 97.6 92 97.6 08/14/24 08:00 Room Air* 0 21 Intake/Output Intake and Output 08/14/24 07:00 Intake Total 340 ml Balance 340 ml Intake Oral 340 ml # Voids 1 Medications Current Medications Medications Dose Ordered Sig/Feng Route Start Time Stop Time Status Last Admin Dose Admin Diagnostic Test (Pha) 1 strip ACHS 08/13/24 07:00 08/14/24 11:53 1 STRIP Insulin Human Regular ACHS SC 08/13/24 07:00 08/14/24 11:56 4 UNITS Dextrose 50 ml UD PRN IV 08/13/24 07:00 Aspirin 81 mg DAILY PO 08/13/24 10:00 08/14/24 10:19 81 MG Atorvastatin Calcium 40 mg HS PO 08/13/24 22:00 08/13/24 21:44 40 MG Acetaminophen 650 mg Q6HP PRN PO 08/13/24 07:00 08/13/24 11:33 650 MG Ondansetron HCl 4 mg Q4HP PRN IV 08/13/24 07:00 08/13/24 11:11 4 MG Nitroglycerin 0.4 mg Q5MINP PRN SL 08/13/24 07:00 Morphine Sulfate 2 mg Q30M PRN IV 08/13/24 07:00 08/14/24 10:30 2 MG Fluoxetine HCl 60 mg DAILY PO 08/13/24 10:00 08/14/24 10:18 60 MG Fluticasone Propionate 50 mcg Q12HR EACHNOSTRI 08/13/24 10:00 08/14/24 10:19 50 MCG Gabapentin 300 mg TID PO 08/13/24 14:00 08/14/24 05:57 300 MG Lisinopril 10 mg DAILY PO 08/13/24 11:30 Patient Own Medication 1 tab TID PO 08/13/24 14:00 Zolpidem Tartrate 10 mg QHSP PO 08/13/24 22:00 08/13/24 21:44 10 MG Patient Own Medication 2 tab DAILY PO 08/14/24 10:00 Acetaminophen/ Hydrocodone Bitart 1 tab Q6HPRN PRN PO 08/13/24 18:30 08/14/24 05:57 1 TAB Laboratory Results Laboratory Tests 08/14/24 06:06 Chemistry Test 08/14/24 06:06 Calcium Level 9.4 mg/dL (8.7-10.4) Labs and/or images reviewed: Labs reviewed by me, Image(s) reviewed by me Assessment/Plan Assessment/Plan Dara Anthony Nate is a 64-year-old female with past medical history of CAD, hypertension, hyperlipidemia, diabetes, recurrent UTIs, ulcerative colitis, sleep apnea, diastolic heart failure, narcolepsy, depression, peripheral neuropathy, tubal ligation, , appendectomy, cholecystectomy, lumbar laminectomy, hernia repair, left shoulder repair, 2 Neuro stimulators, neck fusion, bilateral carpal tunnel surgery, and right ankle screws and plates placed in who presents to the ED for chest pain since 1:00 a.m. patient states that she was sitting on a recliner on her tablet when the pain suddenly heme about states that it is 7/10 feels like someone is sitting on her chest and is constant which radiates to her left shoulder. Patient reports that there are no triggering or alleviating factors. Patient also states that she has an appointment to see a vehicle washer coming up this month. Patient denies any shortness of breath, recent trauma or injury, recent sick contacts, recent illnesses, abdominal pain, nausea, vomiting, diarrhea, lightheadedness, weakness, fever, and chills. Chest pain rule out ACS Diabetes type 2 uncontrolled History of CAD History of diastolic heart failure History of hypertension History of hyperlipidemia History of ulcerative colitis History of sleep apnea History of depression History of peripheral neuropathy History of UTI Positive for fentanyl use Chest pain, likely noncardiac Moderate aortic valve stenosis Hypertension Dyslipidemia Type 2 diabetes mellitus, uncontrolled (Hgb A1c 8.1%) History of TIA Narcolepsy Cataplexy Obstructive sleep apnea with CPAP use at night Morbid obesity 08/14/2024 still has chest pain, declined to be discharged Plan discussed with: Patient My Orders Orders - SETH TAO DO Procedure Category Date Status Time * Cardiology Consult CONS 08/13/24 Transmitted 14:37 Bipap/Cpap For Sleep RT 08/13/24 Logged Apnea 21:14 Bipap/Cpap For Sleep RT 08/13/24 Logged Apnea 22:21 Date of Service: Aug 14, 2024 Billing Provider: SETH TAO DO Common Visit Codes: [id number] INP/OBS CARE(HIGH) SETH TAO DO Aug 14, 2024 13:31
--- NOTE | 2024-08-14 13:47 | ECG ---
[facility] Test Date: 2024-08-13 Test Time: 05:20:56 Pat Name: ELVIS CONCEPCION Department: ER Room: 0245T B Gender: F Chamber Walker: ER : 1960 Requested By: MARIBELL WESTBROOK Order Number: [id number] Reading MD: Alonzo Aceves Measurements Intervals [place] Rate: 89 P: 67 [place]: 163 QRS: -28 QRSD: 91 T: 72 QT: 362 QTc: 441 Interpretive Statements Sinus rhythm Multiple ventricular premature complexes Borderline left axis deviation Baseline wander in lead(s) II,III,aVF Electronically Signed On 08-18-2024 21:40:45 PST by Alonzo Aceves Please click the below link to view image of tracing.
[2024-08-14] MEDS: MORPHINE SULFATE INJ 2 MG/ml SYRG IV PRN (16:53)
[2024-08-14] MEDS: ALPRAZolam 0.5 MG TAB PO PRN (20:49)
[2024-08-15] VITALS (12 sets, daily range): BP systolic 94–124; BP diastolic 42–67; PULSE 76–100; RESP 16–20; TEMP 97.8–98.2; O2SAT 92–96
--- NOTE | 2024-08-15 13:31 | DVHPN2 ---
Reviewed: Care Plan, H&P, Labs, Medications, Previous Orders, Radiology Changes from previous H/P or p: No Changes General: Per HPI Eyes: No Pain, No Vision change, No Conjunctivae inflammation, No Eyelid inflammation, No Other, No Redness ENT: No Ear pain, No Ear discharge, No Nose pain, No Nose discharge, No Nose congestion, No Mouth pain, No Mouth swelling, No Throat pain, No Throat swelling, No Other Cardiovascular: Chest Pain; No Palpitations, No Orthopnea, No Paroxysmal Noc. Dyspnea, No Edema, No Lt Headedness, No Other Respiratory: No Cough, No Dry, No Shortness of breath, No SOB with excertion, No Wheezing, No Hemoptysis, No Pleuritic Pain, No Sputum, No Other Genitourinary: No Dysuria, No Frequency, No Incontinence, No Hematuria, No Retention, No Other Musculoskeletal: No other, No neck pain, No shoulder pain, No arm pain, No back pain, No hand pain, No leg pain, No foot pain Skin: No Rash, No Lesions, No Jaundice, No Bruising, No Other Objective Vitals Vital Signs Date Time Temp Pulse Resp B/P (MAP) Pulse Ox O2 Delivery O2 Flow Rate FiO2 08/15/24 11:14 76 19 124/67 08/15/24 08:45 97.8 95 97.8 08/15/24 08:20 Room Air 0.0 08/15/24 08:00 21 Intake/Output Intake and Output 08/15/24 07:00 Intake Total 2920 ml Output Total 600 ml Balance 2320 ml Intake Oral 2920 ml Output Urine Total 600 ml # Voids 4 # Bowel Movements 2 General Appearance: Alert, Oriented X3 Cardiovascular: Regular rate, Normal S1, Normal S2 Abdomen: Normal bowel sounds, Soft Extremities: No clubbing, No cyanosis, No edema Medications Current Medications Medications Dose Ordered Sig/Feng Route Start Time Stop Time Status Last Admin Dose Admin Diagnostic Test (Pha) 1 strip ACHS 08/13/24 07:00 08/15/24 11:14 1 STRIP Insulin Human Regular ACHS SC 08/13/24 07:00 08/15/24 11:22 6 UNITS Dextrose 50 ml UD PRN IV 08/13/24 07:00 Aspirin 81 mg DAILY PO 08/13/24 10:00 08/15/24 10:16 81 MG Atorvastatin Calcium 40 mg HS PO 08/13/24 22:00 08/14/24 22:42 40 MG Acetaminophen 650 mg Q6HP PRN PO 08/13/24 07:00 08/13/24 11:33 650 MG Ondansetron HCl 4 mg Q4HP PRN IV 08/13/24 07:00 08/14/24 14:04 4 MG Nitroglycerin 0.4 mg Q5MINP PRN SL 08/13/24 07:00 Morphine Sulfate 2 mg Q30M PRN IV 08/13/24 07:00 08/14/24 10:30 2 MG Fluoxetine HCl 60 mg DAILY PO 08/13/24 10:00 08/15/24 09:15 60 MG Fluticasone Propionate 50 mcg Q12HR EACHNOSTRI 08/13/24 10:00 08/14/24 22:42 50 MCG Gabapentin 300 mg TID PO 08/13/24 14:00 08/15/24 06:07 300 MG Lisinopril 10 mg DAILY PO 08/13/24 11:30 08/15/24 09:14 10 MG Patient Own Medication 1 tab TID PO 08/13/24 14:00 Zolpidem Tartrate 10 mg QHSP PO 08/13/24 22:00 08/14/24 22:42 10 MG Patient Own Medication 2 tab DAILY PO 08/14/24 10:00 Acetaminophen/ Hydrocodone Bitart 1 tab Q6HPRN PRN PO 08/13/24 18:30 08/14/24 05:57 1 TAB Morphine Sulfate 2 mg Q2HPRN PRN IV 08/14/24 14:15 08/15/24 11:14 2 MG Alprazolam 1 mg Q6HR PRN PO 08/14/24 19:00 08/15/24 02:55 1 MG Laboratory Results Laboratory Tests 08/14/24 06:06 Labs and/or images reviewed: Labs reviewed by me, Image(s) reviewed by me Assessment/Plan Assessment/Plan Dara Anthony Nate is a 64-year-old female with past medical history of CAD, hypertension, hyperlipidemia, diabetes, recurrent UTIs, ulcerative colitis, sleep apnea, diastolic heart failure, narcolepsy, depression, peripheral neuropathy, tubal ligation, , appendectomy, cholecystectomy, lumbar laminectomy, hernia repair, left shoulder repair, 2 Neuro stimulators, neck fusion, bilateral carpal tunnel surgery, and right ankle screws and plates placed in who presents to the ED for chest pain since 1:00 a.m. patient states that she was sitting on a recliner on her tablet when the pain suddenly heme about states that it is 7/10 feels like someone is sitting on her chest and is constant which radiates to her left shoulder. Patient reports that there are no triggering or alleviating factors. Patient also states that she has an appointment to see a special education kindergarten teacher coming up this month. Patient denies any shortness of breath, recent trauma or injury, recent sick contacts, recent illnesses, abdominal pain, nausea, vomiting, diarrhea, lightheadedness, weakness, fever, and chills. Chest pain rule out ACS Diabetes type 2 uncontrolled History of CAD History of diastolic heart failure History of hypertension History of hyperlipidemia History of ulcerative colitis History of sleep apnea History of depression History of peripheral neuropathy History of UTI Positive for fentanyl use Chest pain, likely noncardiac Moderate aortic valve stenosis Hypertension Dyslipidemia Type 2 diabetes mellitus, uncontrolled (Hgb A1c 8.1%) History of TIA Narcolepsy Cataplexy Obstructive sleep apnea with CPAP use at night Morbid obesity 08/15/2024 still has chest pain, declined to be discharged likely due to anxiety, will start on Xanax started on pantoprazole BID Plan discussed with: Patient My Orders Orders - SETH TAO DO Procedure Category Date Status Time Morphine Sulfate PHA 08/14/24 In Process Injection 14:15 Alprazolam Tablet PHA 08/14/24 In Process (Xanax Tablet) 19:00 Date of Service: Aug 15, 2024 Billing Provider: SETH TAO DO Common Visit Codes: [id number] INP/OBS CARE(HIGH) SETH TAO DO Aug 15, 2024 13:31
[2024-08-15] MEDS: PANTOPRAZOLE 40 MG TAB PO SCH (16:49)
[2024-08-16] VITALS (10 sets, daily range): BP systolic 107–121; BP diastolic 55–59; PULSE 80–101; RESP 16–19; TEMP 97.5–98.4; O2SAT 92–96
[2024-08-16] MEDS: ALPRAZolam 0.5 MG TAB PO PRN (01:02)
[2024-08-16] MEDS ORDERED: GABA-1250 PO ×2 (14:45)
--- NOTE | 2024-08-16 14:46 | DVHDS2 ---
Discharge Summary Date of Admission Aug 13, 2024 at 06:58 Date of Discharge: Aug 16, 2024 Labs/Diagnostic Data: Laboratory Results Test 08/16/24 11:16 08/14/24 06:06 08/13/24 09:25 08/13/24 07:21 POC Glucose 256 mg/dl (70-106) White Blood Count 7.8 10^3/uL (4.4-10.8) Red Blood Count 4.72 10^6/uL (4.0-5.20) Hemoglobin 12.8 g/dL (12.2-16.2) Hematocrit 39.0 % (36.0-46.0) Mean Corpuscular Volume 82.6 fL (80.0-100.0) Mean Corpuscular Hemoglobin 27.1 pg (28.0-32.0) Mean Corpuscular Hemoglobin Concent 32.8 g/dL (32.0-36.0) Red Cell Distribution Width 16.6 % (11.8-14.3) Platelet Count 232 10^3/uL (140-450) Mean Platelet Volume 8.0 fL (6.9-10.8) Neutrophils (%) (Auto) 54.4 % (37.0-80.0) Lymphocytes (%) (Auto) 26.9 % (10.0-50.0) Monocytes (%) (Auto) 7.8 % (0.0-12.0) Eosinophils (%) (Auto) 10.2 % (0.0-7.0) Basophils (%) (Auto) 0.7 % (0.0-2.0) Neutrophils # (Auto) 4.2 10 ^3/uL (1.6-8.6) Lymphocytes # (Auto) 2.1 10 ^3/uL (0.4-5.4) Monocytes # (Auto) 0.6 10 ^3/uL (0-1.3) Eosinophils # (Auto) 0.8 10 ^3/uL (0-0.8) Basophils # (Auto) 0.1 10 ^3/uL (0-0.2) Nucleated Red Blood Cells 0.1 % Sodium Level 138 mmol/L (136-145) Potassium Level 4.4 mmol/L (3.5-5.1) Chloride Level 102 mmol/L (98-107) Carbon Dioxide Level 25 mmol/L (20-31) Anion Gap 11 (5-15) Blood Urea Nitrogen 20 mg/dL (9-23) Creatinine 0.73 mg/dL (0.550-1.02) Glomerular Filtration Rate Calc 91 mL/min (>90) BUN/Creatinine Ratio 27.4 (10.0-20.0) Serum Glucose 213 mg/dL (74-106) Calcium Level 9.4 mg/dL (8.7-10.4) Magnesium Level 1.8 mg/dL (1.6-2.6) Troponin I High Sensitivity 3 ng/L (</=34) Triglycerides Level 263 mg/dL (< 150) Cholesterol Level 153 mg/dL (< 200) LDL Cholesterol 90 mg/dL (< 100) HDL Cholesterol 46 mg/dL (40-59) Test 08/13/24 06:00 08/13/24 02:50 Urine Opiates Screen Neg (NEGATIVE) Urine Fentanyl Screen Pos (NEGATIVE) Urine Barbiturates Screen Neg (NEGATIVE) Urine Phencyclidine Screen Neg (NEGATIVE) Urine Amphetamines Screen Neg (NEGATIVE) Urine Benzodiazepines Screen Neg (NEGATIVE) Urine Cocaine Screen Neg (NEGATIVE) Urine Cannabinoids Screen Neg (NEGATIVE) Hemoglobin A1c 8.1 % A1C (<5.7) Thyroid Stimulating Hormone (TSH) 2.81 uIU/mL (0.55-4.78) Other Laboratory Tests 08/14/24 06:06 Brief Hx & Hospital Course: Dara Anthony is a 64-year-old female with past medical history of CAD, hypertension, hyperlipidemia, diabetes, recurrent UTIs, ulcerative colitis, sleep apnea, diastolic heart failure, narcolepsy, depression, peripheral neuropathy, tubal ligation, , appendectomy, cholecystectomy, lumbar laminectomy, hernia repair, left shoulder repair, 2 Neuro stimulators, neck fusion, bilateral carpal tunnel surgery, and right ankle screws and plates placed in who presents to the ED for chest pain since 1:00 a.m. patient states that she was sitting on a recliner on her tablet when the pain suddenly heme about states that it is 7/10 feels like someone is sitting on her chest and is constant which radiates to her left shoulder. Patient reports that there are no triggering or alleviating factors. Patient also states that she has an appointment to see a recycle coordinator coming up this month. Patient denies any shortness of breath, recent trauma or injury, recent sick contacts, recent illnesses, abdominal pain, nausea, vomiting, diarrhea, lightheadedness, weakness, fever, and chills. Chest pain rule out ACS Diabetes type 2 uncontrolled History of CAD History of diastolic heart failure History of hypertension History of hyperlipidemia History of ulcerative colitis History of sleep apnea History of depression History of peripheral neuropathy History of UTI Positive for fentanyl use Chest pain, likely noncardiac Moderate aortic valve stenosis Hypertension Dyslipidemia Type 2 diabetes mellitus, uncontrolled (Hgb A1c 8.1%) History of TIA Narcolepsy Cataplexy Obstructive sleep apnea with CPAP use at night Morbid obesity 08/15/2024 still has chest pain, declined to be discharged likely due to anxiety, will start on Xanax started on pantoprazole BID 08/16/2024 chest pain improved and pt agreed to be discharged sent home meds to local pharmacy Condition at Discharge: Good Final Diagnosis/Problems List see above Discharge Disposition: Home Discharge Instruct/Medications Diet: Cardiac 2g Na,low cholest Activity: No Restrictions, As Tolerated Discharge Statement: "Patient was advised to return to the ER or call 911 if any headaches, dizziness, shortness of breath, chest pain, abdominal pain, bleeding, fevers, or worsening of medical condition. Patient was counseled about treatment plan, medications, possible side effects, patientverbalized understanding. All questions were answered to the best of my ability. This discharge took greater then 30 minutes in planning, reviewing documentation, counseling the patient, and discussing with other team members." ASSESSMENT ASSESSMENT Assessment Date of Service: Aug 16, 2024 Billing Provider: SETH TAO DO Common Visit Codes: [id number] DISCH DAY >30min SETH TAO DO Aug 16, 2024 14:46
[2024-08-16] MEDS: LACTULOSE 20Gm/30ML SOLN PO ONE (16:25)
--- NOTE | 2024-08-17 14:42 | ECG ---
[facility] Test Date: 2024-08-17 Test Time: 13:40:00 Pat Name: ELVIS CONCEPCION Department: er Room: 0245T B Gender: F Solutions Engineer: magan : [id number] Requested By: BENTLEY BRISCOE Order Number: [id number] Reading MD: Alonzo Aceves Measurements Intervals [place] Rate: 114 P: 50 WV: 163 QRS: 72 QRSD: 89 T: 29 QT: 343 QTc: 473 Interpretive Statements Sinus tachycardia Abnormal R-wave progression, late transition Baseline wander in lead(s) III,aVL Electronically Signed On 08-22-2024 17:08:04 PST by Alonzo Aceves Please click the below link to view image of tracing.
== END 2024-08-16 16:40 | disposition home or self-care (01) | DRG 206 ==
LOC: EDSEX 02:38 → ER 02:38 → EDBD 02:38 → OVERFLOW 06:58 → TELE-EAST 17:47
PROVIDERS: ADMIT Internal Medicine; ATTEND Internal Medicine
PROC: 5A09357 Assistance with Respiratory Ventilation, Less than 24 Consecutive Hours, Continuous Positive Airway Pressure (ICD-10-PCS; principal; 2024-08-13)
PROC: 5A09357 Assistance with Respiratory Ventilation, Less than 24 Consecutive Hours, Continuous Positive Airway Pressure (ICD-10-PCS; 2024-08-14)
PROC: 5A09357 Assistance with Respiratory Ventilation, Less than 24 Consecutive Hours, Continuous Positive Airway Pressure (ICD-10-PCS; 2024-08-15)
DX: M94.0 Chondrocostal junction syndrome [Tietze] (principal); I50.32 Chronic diastolic (congestive) heart failure; Z68.42 Body mass index [BMI] 45.0-49.9, adult; R07.89 Other chest pain; E66.01 Morbid (severe) obesity due to excess calories; E78.5 Hyperlipidemia, unspecified; I35.0 Nonrheumatic aortic (valve) stenosis; I25.10 Atherosclerotic heart disease of native coronary artery without angina pectoris; F32.A Depression, unspecified; F41.9 Anxiety disorder, unspecified; E11.42 Type 2 diabetes mellitus with diabetic polyneuropathy; G47.33 Obstructive sleep apnea (adult) (pediatric); E11.65 Type 2 diabetes mellitus with hyperglycemia; G47.411 Narcolepsy with cataplexy; I11.0 Hypertensive heart disease with heart failure; Z82.49 Family history of ischemic heart disease and other diseases of the circulatory system; Z81.8 Family history of other mental and behavioral disorders; Z88.2 Allergy status to sulfonamides; Z91.041 Radiographic dye allergy status; Z79.899 Other long term (current) drug therapy; Z79.2 Long term (current) use of antibiotics; Z79.4 Long term (current) use of insulin; Z83.3 Family history of diabetes mellitus; Z90.49 Acquired absence of other specified parts of digestive tract; Z80.0 Family history of malignant neoplasm of digestive organs; Z87.440 Personal history of urinary (tract) infections; Z86.73 Personal history of transient ischemic attack (TIA), and cerebral infarction without residual deficits; Z98.1 Arthrodesis status
CPT/HCPCS: 36415; 71045; 80048; 80061; 80307; 82962; 83036; 83735; 84443; 84484; 85025; 93005; 93306; 94660; 96372; 96374; 96375; 99291; G0378; J1815; J2405

== ENCOUNTER 2024-08-17 13:32 | Inpatient (IN) | payer MEDICARE, BC ==
[~2024-08-17] VITALS: Ht 162.6 cm; Wt 129.5 kg
[~2024-08-17 13:32] MED LIST changes: -CEPH500C PO; -DICY10CA PO; +DULO60CA41 PO; -FLUO-125 PO; -LIDO5DIS21 TOP; +MESA400C5 PO; +METO25TA5 PO; +SEMA2INJ3 SC; -[UNRECOGNIZED DRUG - CODE] PO
--- NOTE | 2024-08-17 13:50 | ED.PDOC ---
History of Present Illness HPI Comments 64-year-old female who is well known to this ER brought in by EMS presents with a chief complaint of syncope x 15 minutes ago. Patient was just seen and discharged yesterday from this facility after a negative chest pain work-up. Patient today mentions that she was taking a shower and had a syncopal episode. Patients blood sugar was 444 according to EMS. Patient was given 4mg Zofran by EMS. No other symptoms or modifying factors present at this time. Chief Complaint: Syncope Time Seen by MD: 13:45 Primary Care Provider: BRIDGETTE Reviewed Notes: Medications, Allergies Allergies: Coded Allergies: Sulfa Drugs (Verified Allergy, Mild, rash, 08/13/24) Indomethacin (Verified Adverse Reaction, Mild, migraine, 08/13/24) Home Meds Active Scripts Gabapentin (Gabapentin) 300 Mg Cap, 300 MG PO TID for 30 Days, #90 CAP 3 Refills Prov:SETH TAO DO 08/16/24 Docusate Sodium (Docusate Sodium) 100 Mg Cap, 100 MG PO BIDPRN PRN for 15 Days, #15 CAP Prov:MOUNIKA TILLMAN MD 04/20/24 Fluticasone Propionate (Nasal) (Fluticasone Propionate) 50 Mcg/Act Spr, 50 MCG EACHNOSTRI Q12HR for 30 Days, #2 SPRAY Prov:MOUNIKA TILLMAN MD 04/17/24 Insulin Regular (Human) (Novolin R Flexpen) 100 Unit/Ml Inj, 15 UNIT IJ TID for 28 Days, #100 INJ 15 units before meals, cheack blood sugar 2 hours after meal and add sliding scale Prov:MOUNIKA TILLMAN MD 04/17/24 Insulin Glargine (Lantus Solostar) 100 Unit/Ml Inj, 90 UNITS SC DAILY for 28 Days, #30 INJ Prov:MOUNIKA TILLMAN MD 04/17/24 Reported Medications Semaglutide (Ozempic) 2 Mg/3 Ml Inj, 2 MG SC, INJ 08/13/24 Metoprolol Tartrate (Metoprolol Tartrate) 25 Mg Tab, 1 TAB PO BID, #180 TAB 1 Refill 08/13/24 Mesalamine (Mesalamine Dr) 400 Mg Cap, 400 MG PO, CAP 08/13/24 Duloxetine Hcl (Cymbalta) 60 Mg Cap, 1 CAP PO DAILY, #90 CAP 3 Refills 08/13/24 Ondansetron HCl (Ondansetron) 4 Mg Tab, 4 MG PO DAILY PRN for NAUSEA 07/15/23 Zolpidem Tartrate (Zolpidem Tartrate) 10 Mg Tab, 1 TAB PO HS 07/15/23 Pitolisant Hydrochloride (Wakix) 17.8 Mg Tab, 2 TAB PO DAILY for NARCOLEPSY for 90 Days, #180 11/02/21 Lisinopril (Lisinopril) 10 Mg Tab, 10 MG PO DAILY for 30 Days, MG 07/26/16 Information Source: Patient, Emergency Med Personnel Mode of Arrival: EMS Severity: Moderate Timing: Minutes Duration: Since onset Prehospital treatment: Treatment (4mg Zofran) Past Medical History PAST MEDICAL HISTORY: Anxiety, CAD, Depression, DM, High Lipids, HTN, TIA, UTI'S Surgical History: Appendectomy, BTL, Cholecystectomy, , Hernia Repair CLINICAL NUTRITION MANAGER History: No Pertinent CLINICAL NUTRITION MANAGER History Family History Family History: Family hx of DM, Family hx of Cancer, Family hx of heart rimma Social History Smoker: Non-Smoker Alcohol: Denies ETOH Use Drugs: Denies Drug Use Lives In: Home Constitutional: denies: chills, diaphoresis, fatigue, fever, malaise, sweats, weakness, others EENTM: denies: blurred vision, double vision, ear bleeding, ear discharge, ear drainage, ear pain, ear ringing, eye pain, eye redness, hearing loss, mouth pain, mouth swelling, nasal discharge, nose bleeding, nose congestion, nose pain, photophobia, tearing, throat pain, throat swelling, voice changes, others Respiratory: denies: cough, hemoptysis, orthopnea, SOB at rest, shortness of breath, SOB with excertion, stridor, wheezing, others Cardiovascular: reports: syncope; denies: chest pain, dizzy spells, diaphoresis, Dyspnea on exertion, edema, irregular heart beat, left arm pain, lightheadedness, palpitations, PND, others Gastrointestinal: denies: abdomen distended, abdominal pain, blood streaked bowels, constipated, diarrhea, dysphagia, difficulty swallowing, hematemesis, melena, nausea, poor appetite, poor fluid intake, rectal bleeding, rectal pain, vomiting, others Genitourinary: denies: abnormal vagina bleeding, burning, dyspareunia, dysuria, flank pain, frequency, hematuria, incontinence, pain, , vagina discharge, urgency, others Neurological: denies: dizziness, fainting, headache, left sided numbness, left sided weakness, numbness, paresthesia, pre-existing deficit, right sided numbness, right sided weakness, seizure, speech problems, tingling, tremors, weakness, others Musculoskeletal: denies: back pain, gout, joint pain, joint swelling, muscle pain, muscle stiffness, neck pain, others Integumetry: denies: bruises, change in color, change in hair/nails, dryness, laceration, lesions, lumps, rash, wounds, others Allergic/Immunocompromised: denies: Difficulty Healing, Frequent Infections, Hives, Itching, others Hematologic/Lymphatic: denies: anemia, blood clots, easy bleeding, easy bruising, swollen glands, others Endocrine: denies: excessive hunger, excessive sweating, excessive thirst, excessive urination, flushing, intolerance to cold, intolerance to heat, unexplained weight gain, unexplained weight loss, others Psychiatric: denies: anxiety, bipolar disorder, depression, hopeless, panic disorder, schizophrenia, sleepless, suicidal, others All Other Systems: Reviewed and Negative Physical Exam General Appearance: Mild Distress, Obese HEENT: Normal ENT Inspection, Pharynx Normal, TMs Normal Neck: Full Range of Motion, Non-Tender, Normal, Normal Inspection Respiratory: Chest Non-Tender, Lungs Clear, No Accessory Muscle Use, No Respiratory Distress, Normal Breath Sounds Cardiovascular: No Edema, No JVD, No Murmur, No Gallop, Normal Peripheral Pulses, Regular Rate/Rhythm Breast Exam: Deferred Gastrointestinal: No Organomegaly, Non Tender, No Pulsatile Mass, Normal Bowel Sounds, Soft Genitalia: Deferred Pelvic: Deferred Rectal: Deferred Extremities: No calf tenderness, Normal capillary refill, Normal inspection, Normal range of motion, Non-tender, No pedal edema Musculoskeletal : Apperance: Normal Neurologic: Alert, kiss mixer II-XII nml as Tested, No Motor Deficits, Normal Affect, Normal Mood, No Sensory Deficits Cerebellar Function: Normal Reflexes: Normal Skin: Dry, Normal Color, Warm Lymphatic: No Adenopathy Was a procedure done? Was a procedure done?: No Differential Dx Considerations may include: ACS, CVA, electrolyte abnormality, infectious etiology, X-Ray, Labs, Meds, VS Vital Signs Date Time Temp Pulse Resp B/P (MAP) Pulse Ox O2 Delivery O2 Flow Rate FiO2 08/17/24 16:00 116 08/17/24 15:21 Nasal Cannula* 2 28 08/17/24 14:45 98.5 97 14 144/84 (104) 97 98.5 08/17/24 14:40 114 08/17/24 13:40 114 08/17/24 13:39 97.5 113 18 126/74 (91) 99 Lab Test 08/17/24 15:30 08/17/24 15:07 08/17/24 14:39 08/17/24 14:37 Range/Units Urine Color Light-yellow Yellow Urine Clarity Clear Clear Urine pH 6.5 5.0-9.0 Urine Specific [place] 1.033 1.001-1.035 Urine Protein Negative Negative Urine Ketones 1+ H Negative Urine Blood Negative Negative /uL Urine Nitrite Negative Negative Urine Bilirubin Negative Negative Urine Urobilinogen Normal Negative mg/dL Urine Leukocyte Esterase Negative Negative /uL Urine RBC 1 0 - 4 /hpf Urine Microscopic WBC 36 H 0-5 /HPF Urine Squamous Epithelial Cells Few <5 /hpf Urine Bacteria None seen None Seen /hpf Urine Yeast (Budding) Few None Seen /hpf Urine Glucose 4+ H Normal mg/dL Troponin I High Sensitivity < 3 L </=34 ng/L POC Glucose 507 *H 455 *H 70-106 mg/dl Test 08/17/24 14:06 Range/Units White Blood Count 5.5 # 4.4-10.8 10^3/uL Red Blood Count 4.82 4.0-5.20 10^6/uL Hemoglobin 13.2 12.2-16.2 g/dL Hematocrit 40.1 36.0-46.0 % Mean Corpuscular Volume 83.2 80.0-100.0 fL Mean Corpuscular Hemoglobin 27.4 L 28.0-32.0 pg Mean Corpuscular Hemoglobin Concent 32.9 32.0-36.0 g/dL Red Cell Distribution Width 16.2 H 11.8-14.3 % Platelet Count 231 140-450 10^3/uL Mean Platelet Volume 8.2 6.9-10.8 fL Neutrophils (%) (Auto) 74.7 37.0-80.0 % Lymphocytes (%) (Auto) 13.7 10.0-50.0 % Monocytes (%) (Auto) 6.3 0.0-12.0 % Eosinophils (%) (Auto) 4.4 0.0-7.0 % Basophils (%) (Auto) 0.9 0.0-2.0 % Neutrophils # (Auto) 4.1 1.6-8.6 10 ^3/uL Lymphocytes # (Auto) 0.7 0.4-5.4 10 ^3/uL Monocytes # (Auto) 0.3 0-1.3 10 ^3/uL Eosinophils # (Auto) 0.2 0-0.8 10 ^3/uL Basophils # (Auto) 0 0-0.2 10 ^3/uL Nucleated Red Blood Cells 0.2 % Sodium Level 136 136-145 mmol/L Potassium Level 5.0 3.5-5.1 mmol/L Chloride Level 100 98-107 mmol/L Carbon Dioxide Level 24 20-31 mmol/L Anion Gap 12 5-15 Blood Urea Nitrogen 10 9-23 mg/dL Creatinine 0.84 0.550-1.02 mg/dL Glomerular Filtration Rate Calc 77 >90 mL/min BUN/Creatinine Ratio 11.9 10.0-20.0 Serum Glucose 510 *H 74-106 mg/dL Calcium Level 9.7 8.7-10.4 mg/dL Troponin I High Sensitivity < 3 L </=34 ng/L Time of 1ST Reevaluation: 14:15 Reevaluation 1ST: Unchanged Patient Education/Counseling: Diagnosis, Treatment, Prognosis Family Education/Counseling: Diagnosis, Treatment, Prognosis Departure 1 Departure Time of Disposition: 16:43 (Patient presented with syncope today and should be admitted. Data: 1. I ordered and reviewed the result of at least 3 labs including a CBC, BMP, and troponin. 2. I independently interpreted the following tests: EKG which shows a sinus arrhythmia and a chest x-ray which shows benign chest and a CT head which shows benign brain.Risk:This patient has a high risk of morbidity due to further diagnostic testing or treatment and may suffer from an acute cardiac, neurologic, or infectious disorder. Rationale: Patient should be admitted to the hospital for further management.) Impression: Primary Impression: Syncope and collapse Additional Impression: Uncontrolled diabetes mellitus Qualified Codes: E11.65 - Type 2 diabetes mellitus with hyperglycemia Disposition: 09 ADMITTED INPATIENT Admit to: Med Surg Condition: Serious Critical Care Note Critical Care Time?: Yes Critical care comment: Syncope and collapse Authorized and Performed by: Maribell Westbrook MD Total critical care time: Approximately 37 minutes Due to a high probability of clinically significant, life threatening deterioration, the patient required my highest level of preparedness to intervene emergently and I personally spent this critical care time directly and personally managing the patient. This critical care time included obtaining a history; examining the patient; pulse oximetry; ordering and review of studies; arranging urgent treatment with development of a management plan; evaluation of patient's response to treatment; frequent reassessment; and, discussions with other providers. This critical care time was performed to assess and manage the high probability of imminent, life-threatening deterioration that could result in multi-organ failure. It was exclusive of separately billable procedures and treating other patients and teaching time. Please see my other sections and the rest of the note for further information on patient assessment and treatment. Stability Stability form required: No Heart Score Heart Score: Heart Score Response (Comments) Value History N/A 0 EKG N/A 0 Age N/A 0 Risk Factors N/A 0 Troponin N/A 0 Total 0 I personally scribed for MARIBELL WESTBROOK MD ([email or web address]) on 08/17/24 at 13:50. Electronically submitted by Miguel Eason ([email or web address]). MARIBELL WESTBROOK MD Aug 17, 2024 13:50
[2024-08-17 14:42] LABS: Basophils # (auto) 0 10 ^3/uL (0-0.2); Basophils % (auto) 0.9 % (0.0-2.0); Eosinophils # (auto) 0.2 10 ^3/uL (0-0.8); Eosinophils % (auto) 4.4 % (0.0-7.0); Hematocrit 40.1 % (36.0-46.0); Hemoglobin 13.2 g/dL (12.2-16.2); Lymphocytes # (auto) 0.7 10 ^3/uL (0.4-5.4); Lymphocytes % (auto) 13.7 % (10.0-50.0); Mean Corpuscular Hemoglobin 27.4 pg (28.0-32.0); Mean Corpuscular Hgb Conc. 32.9 g/dL (32.0-36.0); Mean Corpuscular Volume 83.2 fL (80.0-100.0); Monocytes # (auto) 0.3 10 ^3/uL (0-1.3); Monocytes % (auto) 6.3 % (0.0-12.0); Neutrophils # (auto) 4.1 10 ^3/uL (1.6-8.6); Neutrophils % (auto) 74.7 % (37.0-80.0); Nucleated Red Blood Cells % 0.2 %; Platelet Count (auto) 231 10^3/uL (140-450); Red Blood Cells 4.82 10^6/uL (4.0-5.20); Red Cell Distribution Width 16.2 % (11.8-14.3); White Blood Cell 5.5 10^3/uL (4.4-10.8)
[2024-08-17 14:47] LABS: Chloride 100 mmol/L (98-107)
[2024-08-17 14:48] LABS: Anion Gap 12 (5-15); Calcium 9.7 mg/dL (8.7-10.4); Carbon Dioxide 24 mmol/L (20-31)
[2024-08-17 14:53] LABS: BUN/Creatinine Ratio 11.9 (10.0-20.0); Blood Urea Nitrogen 10 mg/dL (9-23)
[2024-08-17 15:07] LABS: Glucose 510 mg/dL (74-106); Sodium 136 mmol/L (136-145)
--- NOTE | 2024-08-17 16:03 | DVH ---
EXAM: XR Chest, 1 View CLINICAL INDICATION: syncope TECHNIQUE: Frontal view of the chest. COMPARISON: XY CHEST PORTABLE on DOS: 08/13/24, XY CHEST XRAY 1 VIEW on DOS: 05/14/24, XY CHEST PORT ABLE on DOS: 05/03/24, XY CHEST PORTABLE on DOS: 04/27/24, XY CHEST PORTABLE on DOS: 04/14/24 FINDINGS: LUNGS AND PLEURAL SPACES: Unremarkable. No consolidation. No pneumothorax. HEART: Unremarkable. No cardiomegaly. MEDIASTINUM: Unremarkable. Normal mediastinal contour. BONES/JOINTS: Unremarkable. No acute fracture. OTHER FINDINGS: . None. IMPRESSION: No acute cardiopulmonary process.
--- NOTE | 2024-08-17 16:04 | DVH ---
EXAM: CT HEAD WITHOUT CONTRAST HISTORY: syncope COMPARISON: CT HEAD WITHOUT CONTRAST on DOS: 05/14/24, CT HEAD WITHOUT CONTRAST on DOS: 04/09/23 TECHNIQUE: Axial images of the head were obtained and reformatted in coronal and sagittal planes. All CT scans at this medical facility are performed using dose modulation techniques as appropriate t o a performed exam including the following: Automated exposure control was utilized; adjustment of th e MA and/or KV according to patient size; and use of iterative reconstruction technique. CT Dose: CTDI volume is 56 mGy. Dose-length product is 897 mGy*cm FINDINGS: There is no evidence of acute intracranial hemorrhage, mass, mass effect midline shift. There is no h ydrocephalus or extra-axial fluid collection. [place]-white matter differentiation is maintained. The visualized paranasal sinuses and mastoid air cells are clear. The calvarium is intact. IMPRESSION: 1. No acute intracranial process. HS:Y
[2024-08-17 16:14] LABS: Urine Bacteria None Seen /hpf (None Seen)
[2024-08-17 16:35] LABS: Urine Blood Negative /uL (Negative); Urine Budding Yeast FEW /hpf (None Seen); Urine Clarity Clear (Clear); Urine Color Light-Yellow (Yellow); Urine Protein, UAD Negative (Negative); Urine Specific Gravity 1.033 (1.001-1.035); Urine Squamous Epithelial Cell FEW /hpf (<5); Urine Urobilinogen Normal (Negative); Urine WBC 36 /HPF (0-5); Urine pH 6.5 (5.0-9.0)
[2024-08-17] MEDS: InsuLIN REG 1unit/0.01ml Soln (100units/ml) IV ONE (17:03)
[2024-08-17] MEDS ORDERED: ACETAMINOPHEN 325 MG TAB PO PRN (19:15)
[2024-08-17] MEDS ORDERED: DEXTROSE (50%) 50ML SYRG IV PRN (19:15)
[2024-08-17] MEDS: ACCU-CHEK COMFORT CURVE STRIP VI SCH (20:00)
--- NOTE | 2024-08-17 20:14 | DVH ---
Carotid Duplex Clinical History: syncope Comparison: None Technique: Duplex Doppler evaluation of the extracranial carotid and vertebral arteries including color Doppler and spectral/pulsed waveform analysis was performed. Findings: RIGHT SIDE: The peak systolic velocities are 92 cm/s in the CCA, 70 cm/s in the ICA. The ICA/CCA ratio is 0.8. The external carotid artery is patent with peak systolic velocity of cm/s proximally. There is appropriate antegrade flow in the right vertebral artery. LEFT SIDE: The peak systolic velocities are 119 cm/s in the CCA, 114 cm/s in the ICA. The ICA/CCA ratio is 1.0. The external carotid artery is patent with peak systolic velocity of cm/s proximally. There is appropriate antegrade flow in the left vertebral artery. IMPRESSION: No hemodynamically significant stenosis noted in right and left carotid system. Reference: Radiology 2003; 229:340-346 Normal ICA PSV is <125 cm/sec and no plaque or intimal thickening is visible sonographically additional criteria include ICA/CCA PSV ratio <2.0 and ICA EDV <40 cm/sec <50% ICA stenosis ICA PSV is <125 cm/sec and plaque or intimal thickening is visible sonographically additional criteria include ICA/CCA PSV ratio <2.0 and ICA EDV <40 cm/sec 50-69% ICA stenosis ICA PSV is 125-230 cm/sec and plaque is visible sonographically additional criteria include ICA/CCA PSV ratio of 2.0-4.0 and ICA EDV of 40-100 cm/sec 70% ICA stenosis but less than near occlusion ICA PSV is >230 cm/sec and visible plaque and luminal narrowing are seen at fang-scale and color Dopp ler ultrasound (the higher the Doppler parameters lie above the threshold of 230 cm/sec, the greater the likelihood of severe disease) additional criteria include ICA/CCA PSV ratio >4 and ICA EDV >100 cm/sec
[2024-08-17] MEDS: InsuLIN REG 1unit/0.01ml Soln (100units/ml) SC SCH (20:57)
[2024-08-17 21:32] VITALS: PULSE 107; RESP 20; O2SAT 94
[2024-08-17] MEDS: GABAPENTIN 300 MG CAP PO SCH (22:03)
[2024-08-17] MEDS: METOPROLOL TARTRATE 25 MG TAB PO SCH (22:03)
[2024-08-17] MEDS: ONDANSETRON HCL 4 MG/2 ML VIAL IV PRN (23:18)
[2024-08-17] MEDS: TEMAZEPAM 15 MG CAP PO ONE (23:18)
[2024-08-17] MEDS: MORPHINE SULFATE INJ 2 MG/ml SYRG IV PRN (23:19)
--- NOTE | 2024-08-18 00:29 | DVHHP2 ---
History of Present Illness Reason for Visit: Syncope History of Present Illness 64-year-old female presents for evaluation of syncope. Patient reports having two syncopal episodes yesterday. She states having one at home and one on arrival to the emergency department. She states that prior to both events she felt dizzy. She denies head trauma. Does not know how long she was unconscious. Denies headache or blurred vision. No chest pain or shortness for breath. No other acute complaints reported. Past Medical History Hypertension, dyslipidemia, diabetes mellitus, depression, CAD Past Surgical History BTL, , hernia repair, cholecystectomy, appendectomy Family History Noncontributory Smoke: No ALCOHOL: none Drugs: None Lives: with Family Review of Systems Review of Systems Review of systems are currently negative otherwise addressed in HPI. Allergies: Coded Allergies: Sulfa Drugs (Verified Allergy, Mild, rash, 08/13/24) Indomethacin (Verified Adverse Reaction, Mild, migraine, 08/13/24) Medications Current Medications Medications Dose Ordered Sig/Feng Route Start Time Stop Time Status Last Admin Dose Admin Lisinopril 10 mg DAILY PO 08/18/24 10:00 Metoprolol Tartrate 25 mg BID PO 08/17/24 22:00 08/17/24 22:03 25 MG Gabapentin 300 mg BID PO 08/17/24 22:00 08/17/24 22:03 300 MG Duloxetine HCl 60 mg DAILY PO 08/18/24 10:00 Diagnostic Test (Pha) 1 strip IQ4HR 08/17/24 20:00 08/18/24 00:02 1 STRIP Insulin Human Regular IQ4HR SC 08/17/24 20:00 08/18/24 00:03 8 UNITS Dextrose 50 ml UD PRN IV 08/17/24 19:15 Ondansetron HCl 4 mg Q4HP PRN IV 08/17/24 19:15 08/17/24 23:18 4 MG Enoxaparin Sodium 40 mg DAILY SC 08/18/24 10:00 Acetaminophen 650 mg Q6HP PRN PO 08/17/24 19:15 Nitroglycerin 0.4 mg Q5MINP PRN SL 08/17/24 19:15 Morphine Sulfate 2 mg Q30M PRN IV 08/17/24 19:15 08/17/24 23:19 2 MG Acetaminophen/ Hydrocodone Bitart 1 tab Q6HP PRN PO 08/17/24 22:30 Exam Vital Signs Vital Signs Date Time Temp Pulse Resp B/P (MAP) Pulse Ox O2 Delivery O2 Flow Rate FiO2 08/18/24 00:00 86 08/18/24 00:00 16 103/47 (65) 95 08/17/24 22:00 98.2 98.2 08/17/24 21:32 Nasal Cannula* 2 28 Exam Gen: 64-year-old female in no apparent distress, morbidly obese Skin: Warm, dry, normal color and texture, no rash. HEENT: Normocephalic atraumatic, mucous membranes moist and pink. Neck: Cervical and supraclavicular nodes normal without enlargement, trachea is midline, thyroid gland is normal without masses. Pulmonary: Clear to auscultation and percussion bilaterally. Cardiac: Regular rate and rhythm. No murmur Abdomen: Soft, nontender, nondistended, bowel sounds present all 4 quadrants, no guarding, no rigidity, no organomegaly. Extremities: No cyanosis, clubbing, no edema Neuro: Cranial nerves II through XII grossly intact, normal affect and speech, no focal motor deficits. Labs/Xrays ORDERING PHYSICIAN: BENTLEY BRISCOE PROCEDURE(s): ECIDC - ECHO 2D MODE CARDIAC DOP REASON: ORDER NUMBER(s): [id number], ACCESSION NUMBER(s): [id number] APPROVED REPORT EXAM: LIMITED Two-dimensional and M-mode echocardiogram with Doppler and color Doppler. Blood Pressure: 115/71 mmHg INDICATION Chest Pain RISK FACTORS Obesity: Height: 5' 4", Weight: 285 DIMENSIONS LVDd 4.8 (3.8-5.7cm) LA (2D) 3.5 (1.9-4.0cm) Aortic Root 3.2 (2.0-3.7cm) LVDs 2.9 (2.5-4.0cm) LA (MM) (1.9-4.0cm) Aortic Cusp Exc 1.4 (1.5- 2.0cm) EF (%) 70.0 (55-70%) Rt. Atrium 3.7 (1.9-4.0cm) Asc. Aorta cm IVSd 1.3 (0.7-1.1cm) RV (D) (1.8-2.4cm) PWd 1.2 (0.7-1.1cm) Mitral Valve Mitral Mitral Stenosis E wave 0.90m/s MV Mean GR. mmHg A wave 1.30m/s MV Peak GR. mmHg E/A ratio 0.7 2D MVA cm2 Aortic Valve Aortic Valve Aortic Stenosis V1 1.10m/s AO Mean GR. 25mmHg V2 3.30m/s AO Peak GR. 45mmHg LVOT Diameter 2.2 (1.8-2.4cm) Doppler LISA 1.27cm2 AI P /2 Time 513.21ms Pulmonic Valve V2 0.80m/s Other Information Quality : Limited Rhythm : Technically limited study due to body habitus. Conclusion lvef 65% normal LV function normal RV function normal atria moderate aortic stenosis, mean gfradient of 26 mmhg normal pericardium SIGNED BY: HUANG FRENCH MD SIGNED DATE/TIME: 08/13/24 9744 CC: ORDERING PHYSICIAN: MARIBELL WESTBROOK MD PROCEDURE(s): CXRP - CHEST PORTABLE REASON: syncope ORDER NUMBER(s): [id number], ACCESSION NUMBER(s): [id number] EXAM: XR Chest, 1 View CLINICAL INDICATION: syncope TECHNIQUE: Frontal view of the chest. COMPARISON: XY CHEST PORTABLE on DOS: 08/13/24, XY CHEST XRAY 1 VIEW on DOS: 05/14/24, XY CHEST PORTABLE on DOS: 05/03/24, XY CHEST PORTABLE on DOS: 04/27/24, XY CHEST PORTABLE on DOS: 04/14/24 FINDINGS: LUNGS AND PLEURAL SPACES: Unremarkable. No consolidation. No pneumothorax. HEART: Unremarkable. No cardiomegaly. MEDIASTINUM: Unremarkable. Normal mediastinal contour. BONES/JOINTS: Unremarkable. No acute fracture. OTHER FINDINGS: . None. IMPRESSION: No acute cardiopulmonary process. RING PHYSICIAN: HUBER REARDON AGACNP PROCEDURE(s): CARCL - CAROTID DUPLX W COLOR DOP REASON: syncope ORDER NUMBER(s): [id number], ACCESSION NUMBER(s): [id number] Carotid Duplex Clinical History: syncope Comparison: None Technique: Duplex Doppler evaluation of the extracranial carotid and vertebral arteries including color Doppler and spectral/pulsed waveform analysis was performed. Findings: RIGHT SIDE: The peak systolic velocities are 92 cm/s in the CCA, 70 cm/s in the ICA. The ICA/CCA ratio is 0.8. The external carotid artery is patent with peak systolic velocity of cm/s proximally. There is appropriate antegrade flow in the right vertebral artery. LEFT SIDE: The peak systolic velocities are 119 cm/s in the CCA, 114 cm/s in the ICA. The ICA/CCA ratio is 1.0. The external carotid artery is patent with peak systolic velocity of cm/s proximally. There is appropriate antegrade flow in the left vertebral artery. IMPRESSION: No hemodynamically significant stenosis noted in right and left carotid system. Reference: Radiology 2003; 229:340-346 Normal ICA PSV is <125 cm/sec and no plaque or intimal thickening is visible sonographically additional criteria include ICA/CCA PSV ratio <2.0 and ICA EDV <40 cm/sec <50% ICA stenosis ICA PSV is <125 cm/sec and plaque or intimal thickening is visible sonographically additional criteria include ICA/CCA PSV ratio <2.0 and ICA EDV <40 cm/sec 50-69% ICA stenosis ICA PSV is 125-230 cm/sec and plaque is visible sonographically additional criteria include ICA/CCA PSV ratio of 2.0-4.0 and ICA EDV of 40-100 cm/sec 70% ICA stenosis but less than near occlusion ICA PSV is >230 cm/sec and visible plaque and luminal narrowing are seen at palma-scale and color Doppler ultrasound (the higher the Doppler parameters lie above the threshold of 230 cm/sec, the greater the likelihood of severe disease) additional criteria include ICA/CCA PSV ratio >4 and ICA EDV >100 cm/sec RING PHYSICIAN: HUBER REARDONCNP PROCEDURE(s): CARCL - CAROTID DUPLX W COLOR DOP REASON: syncope ORDER NUMBER(s): [id number], ACCESSION NUMBER(s): [id number] Carotid Duplex Clinical History: syncope Comparison: None Technique: Duplex Doppler evaluation of the extracranial carotid and vertebral arteries in cluding color Doppler and spectral/pulsed waveform analysis was performed. Findings: RIGHT SIDE: The peak systolic velocities are 92 cm/s in the CCA, 70 cm/s in the ICA. The ICA/CCA ratio is 0.8. The external carotid artery is patent with peak systolic velocity of cm/s proximally. There is appropriate antegrade flow in the right vertebral artery. LEFT SIDE: The peak systolic velocities are 119 cm/s in the CCA, 114 cm/s in the ICA. The ICA/CCA ratio is 1.0. The external carotid artery is patent with peak systolic velocity of cm/s proximally. There is appropriate antegrade flow in the left vertebral artery. IMPRESSION: No hemodynamically significant stenosis noted in right and left carotid system. Reference: Radiology 2003; 229:340-346 Normal ICA PSV is <125 cm/sec and no plaque or intimal thickening is visible sonographically additional criteria include ICA/CCA PSV ratio <2.0 and ICA EDV <40 cm/sec <50% ICA stenosis ICA PSV is <125 cm/sec and plaque or intimal thickening is visible sonographically additional criteria include ICA/CCA PSV ratio <2.0 and ICA EDV <40 cm/sec 50-69% ICA stenosis ICA PSV is 125-230 cm/sec and plaque is visible sonographically additional criteria include ICA/CCA PSV ratio of 2.0-4.0 and ICA EDV of 40-100 cm/sec 70% ICA stenosis but less than near occlusion ICA PSV is >230 cm/sec and visible plaque and luminal narrowing are seen at palma-scale and color Doppler ultrasound (the higher the Doppler parameters lie above the threshold of 230 cm/sec, the greater the likelihood of severe disease) additional criteria include ICA/CCA PSV ratio >4 and ICA EDV >100 cm/sec RING PHYSICIAN: HUBER REARDON PROCEDURE(s): CARCL - CAROTID DUPLX W COLOR DOP REASON: syncope ORDER NUMBER(s): [id number], ACCESSION NUMBER(s): [id number] Carotid Duplex Clinical History: syncope Comparison: None Technique: Duplex Doppler evaluation of the extracranial carotid and vertebral arteries including color Doppler and spectral/pulsed waveform analysis was performed. Findings: RIGHT SIDE: The peak systolic velocities are 92 cm/s in the CCA, 70 cm/s in the ICA. The ICA/CCA ratio is 0.8. The external carotid artery is patent with peak systolic velocity of cm/s proximally. There is appropriate antegrade flow in the right vertebral artery. LEFT SIDE: The peak systolic velocities are 119 cm/s in the CCA, 114 cm/s in the ICA. The ICA/CCA ratio is 1.0. The external carotid artery is patent with peak systolic velocity of cm/s proximally. There is appropriate antegrade flow in the left vertebral artery. IMPRESSION: No hemodynamically significant stenosis noted in right and left carotid system. Reference: Radiology 2003; 229:340-346 Normal ICA PSV is <125 cm/sec and no plaque or intimal thickening is visible sonographically additional criteria include ICA/CCA PSV ratio <2.0 and ICA EDV <40 cm/sec <50% ICA stenosis ICA PSV is <125 cm/sec and plaque or intimal thickening is visible sonographically additional criteria include ICA/CCA PSV ratio <2.0 and ICA EDV <40 cm/sec 50-69% ICA stenosis ICA PSV is 125-230 cm/sec and plaque is visible sonographically additional criteria include ICA/CCA PSV ratio of 2.0-4.0 and ICA EDV of 40-100 cm/sec 70% ICA stenosis but less than near occlusion ICA PSV is >230 cm/sec and visible plaque and luminal narrowing are seen at palma-scale and color Doppler ultrasound (the higher the Doppler parameters lie above the threshold of 230 cm/sec, the greater the likelihood of severe disease) additional criteria include ICA/CCA PSV ratio >4 and ICA EDV >100 cm/sec RING PHYSICIAN: MARIBELL WESTBROOK MD PROCEDURE(s): HWOCT - HEAD WITHOUT CONTRAST REASON: syncope ORDER NUMBER(s): [id number], ACCESSION NUMBER(s): [id number] EXAM: CT HEAD WITHOUT CONTRAST HISTORY: syncope COMPARISON: CT HEAD WITHOUT CONTRAST on DOS: 05/14/24, CT HEAD WITHOUT CONTRAST on DOS: 04/09/23 TECHNIQUE: Axial images of the head were obtained and reformatted in coronal and sagittal planes. All CT scans at this medical facility are performed using dose modulation techniques as appropriate to a performed exam including the following: Automated exposure control was utilized; adjustment of the MA and/or KV according to patient size; and use of iterative reconstruction technique. CT Dose: CTDI volume is 56 mGy. Dose-length product is 897 mGy*cm FINDINGS: There is no evidence of acute intracranial hemorrhage, mass, mass effect midline shift. There is no hydrocephalus or extra-axial fluid collection. [place]-white matter differentiation is maintained. The visualized paranasal sinuses and mastoid air cells are clear. The calvarium is intact. IMPRESSION: 1. No acute intracranial process. HS:Y Labs Test 08/18/24 00:00 08/17/24 22:27 08/17/24 15:30 08/17/24 15:07 Range/Units POC Glucose 224 H 70-106 mg/dl D-Dimer, Quantitative 0.42 0.0-0.49 mg/L FEU Urine Color Light-yellow Yellow Urine Clarity Clear Clear Urine pH 6.5 5.0-9.0 Urine Specific Spelter 1.033 1.001-1.035 Urine Protein Negative Negative Urine Ketones 1+ H Negative Urine Blood Negative Negative /uL Urine Nitrite Negative Negative Urine Bilirubin Negative Negative Urine Urobilinogen Normal Negative mg/dL Urine Leukocyte Esterase Negative Negative /uL Urine RBC 1 0 - 4 /hpf Urine Microscopic WBC 36 H 0-5 /HPF Urine Squamous Epithelial Cells Few <5 /hpf Urine Bacteria None seen None Seen /hpf Urine Yeast (Budding) Few None Seen /hpf Urine Glucose 4+ H Normal mg/dL Troponin I High Sensitivity < 3 L </=34 ng/L Test 08/17/24 14:06 Range/Units White Blood Count 5.5 # 4.4-10.8 10^3/uL Red Blood Count 4.82 4.0-5.20 10^6/uL Hemoglobin 13.2 12.2-16.2 g/dL Hematocrit 40.1 36.0-46.0 % Mean Corpuscular Volume 83.2 80.0-100.0 fL Mean Corpuscular Hemoglobin 27.4 L 28.0-32.0 pg Mean Corpuscular Hemoglobin Concent 32.9 32.0-36.0 g/dL Red Cell Distribution Width 16.2 H 11.8-14.3 % Platelet Count 231 140-450 10^3/uL Mean Platelet Volume 8.2 6.9-10.8 fL Neutrophils (%) (Auto) 74.7 37.0-80.0 % Lymphocytes (%) (Auto) 13.7 10.0-50.0 % Monocytes (%) (Auto) 6.3 0.0-12.0 % Eosinophils (%) (Auto) 4.4 0.0-7.0 % Basophils (%) (Auto) 0.9 0.0-2.0 % Neutrophils # (Auto) 4.1 1.6-8.6 10 ^3/uL Lymphocytes # (Auto) 0.7 0.4-5.4 10 ^3/uL Monocytes # (Auto) 0.3 0-1.3 10 ^3/uL Eosinophils # (Auto) 0.2 0-0.8 10 ^3/uL Basophils # (Auto) 0 0-0.2 10 ^3/uL Nucleated Red Blood Cells 0.2 % Sodium Level 136 136-145 mmol/L Potassium Level 5.0 3.5-5.1 mmol/L Chloride Level 100 98-107 mmol/L Carbon Dioxide Level 24 20-31 mmol/L Anion Gap 12 5-15 Blood Urea Nitrogen 10 9-23 mg/dL Creatinine 0.84 0.550-1.02 mg/dL Glomerular Filtration Rate Calc 77 >90 mL/min BUN/Creatinine Ratio 11.9 10.0-20.0 Serum Glucose 510 *H 74-106 mg/dL Calcium Level 9.7 8.7-10.4 mg/dL Assessment/Plan Assessment/Plan Assessment Syncope Uncontrolled diabetes mellitus Hypertension Morbid obesity Admit the patient to telemetry to the hospitalist Cardiology consultation Resume home medications Continue treatment per orders. Plan discussed with: Patient My Orders Orders - REARDONHUBER MITCHELL Procedure Category Date Status Time * Cardiology Consult CONS 08/17/24 Transmitted 19:05 Lisinopril Tablet PHA 08/18/24 In Process (Zestril Tablet) 10:00 Metoprolol Tartrate PHA 08/17/24 In Process Tablet (Lopressor Ta 22:00 Gabapentin Capsule PHA 08/17/24 In Process (Neurontin Capsule) 22:00 Duloxetine Hcl PHA 08/18/24 In Process Capsule (Cymbalta 10:00 Basic Metabolic Panel LAB 08/18/24 Logged 04:00 Glucose Blood PHA 08/17/24 In Process (Accu-Chek Comfort 20:00 Insulin R (Human) PHA 08/17/24 In Process (Insulin R) 20:00 Dextrose 50% Syringe PHA 08/17/24 In Process 19:15 Admit ADMIT 08/17/24 Transmitted 19:05 Ondansetron Hcl PHA 08/17/24 In Process (Zofran) 19:15 Enoxaparin Sodium PHA 08/18/24 In Process (Lovenox) 10:00 Complete Blood Count LAB 08/18/24 Logged 04:00 Cardiac DIET 08/18/24 Transmitted Diet-2gna,Lofat,Lochol Breakfast Echo 2d Mode Cardiac US 08/17/24 Logged DOP 19:05 Carotid Duplx W Color US 08/17/24 Resulted DOP 19:05 Condition: Fair RAE 08/17/24 In Process 19:05 Acetaminophen Tablet PHA 08/17/24 In Process (Tylenol Tablet) 19:15 Bedrest With Bathroom RAE 08/17/24 In Process Privileg 19:05 Nitroglycerin PHA 08/17/24 In Process Sublingual (Ntrostat 19:15 Morphine Sulfate PHA 08/17/24 In Process Injection 19:15 Stat Ekg For Chest RAE 08/17/24 In Process Pain 19:05 Notify Md Of Changes RAE 08/17/24 In Process From Base 19:05 [place] For [facility] 08/17/24 In Process 24 Hours 19:05 Emergency Dysrhythmia RAE 08/17/24 In Process Protocol 19:05 Rhythm Strips Once [facility] 08/17/24 In Process Every Shift 19:05 Oxygen By Nasal RT 08/17/24 Transmitted Cannula 19:05 Hydrocodone-Acet PHA 08/17/24 In Process 7.5/325mg Tab (Wing 22:30 Date of Service: Aug 17, 2024 Billing Provider: HUBER REARDON Common Visit Codes: [id number] INP/OBS CARE (HIGH) HUBER REARDON Aug 18, 2024 00:29
[2024-08-18] MEDS: HYDROcodone-ACET 7.5/325MG TAB PO PRN (04:36)
[2024-08-18] MEDS: LORazepam 2MG/ML-1ML VIAL IV ONE (06:43)
[2024-08-18 08:54] LABS: Chloride 102 mmol/L (98-107); Potassium 4.7 mmol/L (3.5-5.1); Sodium 137 mmol/L (136-145)
[2024-08-18 08:55] LABS: Anion Gap 10 (5-15); Calcium 9.4 mg/dL (8.7-10.4); Carbon Dioxide 25 mmol/L (20-31)
[2024-08-18 09:00] VITALS: PULSE 73; RESP 17; O2SAT 93
[2024-08-18 09:00] LABS: BUN/Creatinine Ratio 10.7 (10.0-20.0)
[2024-08-18 09:04] LABS: Blood Urea Nitrogen 8 mg/dL (9-23); Glucose 236 mg/dL (74-106)
[2024-08-18 09:05] LABS: Basophils # (auto) 0.1 10 ^3/uL (0-0.2); Hemoglobin 12.8 g/dL (12.2-16.2); Monocytes # (auto) 0.5 10 ^3/uL (0-1.3); Nucleated Red Blood Cells % 0.1 %; Red Blood Cells 4.74 10^6/uL (4.0-5.20); White Blood Cell 6.4 10^3/uL (4.4-10.8)
[2024-08-18 09:08] LABS: Eosinophils # (auto) 0.6 10 ^3/uL (0-0.8); Eosinophils % (auto) 8.8 % (0.0-7.0); Hematocrit 39.4 % (36.0-46.0); Lymphocytes # (auto) 1.2 10 ^3/uL (0.4-5.4); Lymphocytes % (auto) 19.5 % (10.0-50.0); Mean Corpuscular Hgb Conc. 32.5 g/dL (32.0-36.0); Mean Corpuscular Volume 82.9 fL (80.0-100.0); Monocytes % (auto) 7.7 % (0.0-12.0); Platelet Count (auto) 230 10^3/uL (140-450); Red Cell Distribution Width 16.4 % (11.8-14.3)
[2024-08-18 09:38] LABS: Triglycerides 118 mg/dL (< 150)
[2024-08-18 09:39] LABS: LDL Cholesterol 58 mg/dL (< 100)
[2024-08-18 09:41] LABS: Cholesterol 106 mg/dL (< 200); HDL Cholesterol 47 mg/dL (40-59)
[2024-08-18] MEDS: DULoxetine HCL 30 MG CAP PO SCH (10:38)
[2024-08-18] MEDS: ENOXAPARIN SOD 40 MG/0.4 ML SYRINGE SC SCH (10:38)
[2024-08-18] MEDS: LISINOPRIL 5 MG TAB PO SCH (10:41)
--- NOTE | 2024-08-18 12:27 | DVHINCON2 ---
Date Seen: Aug 18, 2024 Referring Physician TRACY Kuo Reason for Consultation Syncope History of Present Illness This is a 64-year-old female patient who presents to the emergency room with chief complaint of syncopal episode. The patient reports that she was taking a shower when suddenly she began to feel lightheaded. She reports that the next thing she remembers is waking up in the shower on the ground. She reports loss of consciousness but does not know if she hit her head. She came to the emergency room for further evaluation. The patient states that she sustained another syncopal episode while in the ER waiting area. She states that she felt as though her eyes were getting heavy and the next thing she remembers is that she was in an emergency room bed. Of note, the patient was recently here for chest pain and discharged on 08/16/24. Initial twelve lead electrocardiogram done upon arrival reveals sinus tachycardia without any significant ST segment changes. Initial troponin level was negative. Significant past medical history includes aortic valve stenosis, hypertension, dyslipidemia, type 2 diabetes mellitus, TIA, narcolepsy, cataplexy, gastritis, ulcerative colitis, obstructive sleep apnea with CPAP use at night, and morbid obesity. Of note, the patient was seen at this facility and underwent a coronary angiogram on 03/09/2024 which revealed normal coronary arteries without significant atherosclerotic plaquing, thus no catheter based intervention was needed. Past Medical History Past medical history reviewed. No other significant than mentioned above. Past Surgical History Open reduction internal fixation right trimalleolar ankle fracture Back surgery Family History: Colon cancer G8 MOTHER, Depression G8 MOTHER, Diabetes mellitus G8 MOTHER, G8 BROTHER Family history: Diabetes mellitus G8 MOTHER, (mother) G8 BROTHER (older brother) Family history: Hypertension G8 BROTHER (brothers) Ischemic heart disease G8 MOTHER, Prostate carcinoma G8 FATHER, Family History Family history reviewed. Social History Denies the use of tobacco, alcohol or illicit drugs. Allergies: Coded Allergies: Sulfa Drugs (Verified Allergy, Mild, rash, 08/13/24) Indomethacin (Verified Adverse Reaction, Mild, migraine, 08/13/24) Home Meds Active Scripts Gabapentin (Gabapentin) 300 Mg Cap, 300 MG PO TID for 30 Days, #90 CAP 3 Refills Prov:SETH TAO DO 08/16/24 Docusate Sodium (Docusate Sodium) 100 Mg Cap, 100 MG PO BIDPRN PRN for 15 Days, #15 CAP Prov:MOUNIKA TILLMAN MD 04/20/24 Fluticasone Propionate (Nasal) (Fluticasone Propionate) 50 Mcg/Act Spr, 50 MCG EACHNOSTRI Q12HR for 30 Days, #2 SPRAY Prov:MOUNIKA TILLMAN MD 04/17/24 Insulin Regular (Human) (Novolin R Flexpen) 100 Unit/Ml Inj, 15 UNIT IJ TID for 28 Days, #100 INJ 15 units before meals, cheack blood sugar 2 hours after meal and add sliding scale Prov:MOUNIKA TILLMAN MD 04/17/24 Insulin Glargine (Lantus Solostar) 100 Unit/Ml Inj, 90 UNITS SC DAILY for 28 Days, #30 INJ Prov:MOUNIKA TILLMAN MD 04/17/24 Reported Medications Semaglutide (Ozempic) 2 Mg/3 Ml Inj, 2 MG SC, INJ 08/13/24 Metoprolol Tartrate (Metoprolol Tartrate) 25 Mg Tab, 1 TAB PO BID, #180 TAB 1 Refill 08/13/24 Mesalamine (Mesalamine Dr) 400 Mg Cap, 400 MG PO, CAP 08/13/24 Duloxetine Hcl (Cymbalta) 60 Mg Cap, 1 CAP PO DAILY, #90 CAP 3 Refills 08/13/24 Ondansetron HCl (Ondansetron) 4 Mg Tab, 4 MG PO DAILY PRN for NAUSEA 07/15/23 Zolpidem Tartrate (Zolpidem Tartrate) 10 Mg Tab, 1 TAB PO HS 07/15/23 Pitolisant Hydrochloride (Wakix) 17.8 Mg Tab, 2 TAB PO DAILY for NARCOLEPSY for 90 Days, #180 11/02/21 Lisinopril (Lisinopril) 10 Mg Tab, 10 MG PO DAILY for 30 Days, MG 07/26/16 Home Meds Home medications reviewed. Current Medications Current Medications Medications (Trade) Dose Ordered Sig/Feng Route PRN Reason Start Time Stop Time Status Last Admin Lisinopril (Zestril Tablet) 10 mg DAILY PO 08/18/24 10:00 08/18/24 10:41 Metoprolol Tartrate (Lopressor Tablet) 25 mg BID PO 08/17/24 22:00 08/18/24 10:39 Gabapentin (Neurontin Capsule) 300 mg BID PO 08/17/24 22:00 08/18/24 10:38 Duloxetine HCl (Cymbalta Capsule) 60 mg DAILY PO 08/18/24 10:00 08/18/24 10:38 Diagnostic Test (Pha) (Accu-Chek Comfort Curve T) 1 strip IQ4HR 08/17/24 20:00 08/18/24 08:00 Insulin Human Regular (InsuLIN R) IQ4HR SC 08/17/24 20:00 08/18/24 08:53 Dextrose 50 ml UD PRN IV Blood Sugar LESS THAN 60 08/17/24 19:15 Ondansetron HCl (Zofran) 4 mg Q4HP PRN IV NAUSEA / VOMITING 08/17/24 19:15 08/18/24 04:36 Enoxaparin Sodium (Lovenox) 40 mg DAILY SC 08/18/24 10:00 08/18/24 10:38 Acetaminophen (Tylenol Tablet) 650 mg Q6HP PRN PO PAIN SCALE 1-3 OR TEMP>100.4 08/17/24 19:15 Nitroglycerin (Ntrostat Sublingual) 0.4 mg Q5MINP PRN SL FOR CHEST PAIN 08/17/24 19:15 Morphine Sulfate 2 mg Q30M PRN IV FOR CHEST PAIN 08/17/24 19:15 08/17/24 23:19 Acetaminophen/ Hydrocodone Bitart (Creole 7.5/325MG Tab) 1 tab Q6HP PRN PO MODERATE PAIN (4-6 PAIN SCALE) 08/17/24 22:30 08/18/24 04:36 Review of Systems Constitutional: No symptom reported Ears, Nose, & Throat: No symptom reported Eyes: No symptom reported Neurological: Syncope Pulmonary/Respiratory: No symptoms reported Cardiovascular: No symptom reported Gastrointestinal: No symptom reported Genitourinary: No symptom reported Musculoskeletal: No symptom reported Skin: No symptom reported Psychiatric: No symptom reported Endocrine: No symptom reported Hematologic/Lymphatic: No symptom reported Vital Signs Vital Signs Date Time Temp Pulse Resp B/P (MAP) Pulse Ox O2 Delivery O2 Flow Rate FiO2 08/18/24 10:41 109/73 08/18/24 10:39 78 08/18/24 10:00 16 92 08/18/24 09:00 Nasal Cannula* 2 28 08/17/24 22:00 98.2 98.2 Physical Exam General Appearance: Cooperative. Morbidly obese Pulmonary/Respiratory: Clear, bilateral breaths sounds. Cardiovascular/Chest: Regular rate and rhythm. Systolic murmur Peripheral Pulses: 2+ Radial (R). 2+ Radial (L). 2+ Pedal (R). 2+ Pedal (L) Abdominal Exam: Normal bowel sounds. Ankle Exam: Negative ankle edema Lower extremities: Negative lower extremity edema Neuro/Mental Status: A/OX4, coherent. Thoughts/Psych: Normal thought pattern. Appropriate mood and affect. Good judgment and insight. Appearance: No acute distress. Skin Exam: Normal inspection. Normal color. Warm and dry. Labs/Diagnostic Data Labs Test 08/18/24 10:16 08/18/24 08:41 08/18/24 08:34 08/18/24 08:20 Range/Units POC Glucose 238 H 70-106 mg/dl White Blood Count 6.4 4.4-10.8 10^3/uL Red Blood Count 4.74 4.0-5.20 10^6/uL Hemoglobin 12.8 12.2-16.2 g/dL Hematocrit 39.4 36.0-46.0 % Mean Corpuscular Volume 82.9 80.0-100.0 fL Mean Corpuscular Hemoglobin 27.0 L 28.0-32.0 pg Mean Corpuscular Hemoglobin Concent 32.5 32.0-36.0 g/dL Red Cell Distribution Width 16.4 H 11.8-14.3 % Platelet Count 230 140-450 10^3/uL Mean Platelet Volume 7.9 6.9-10.8 fL Neutrophils (%) (Auto) 63.0 37.0-80.0 % Lymphocytes (%) (Auto) 19.5 10.0-50.0 % Monocytes (%) (Auto) 7.7 0.0-12.0 % Eosinophils (%) (Auto) 8.8 H 0.0-7.0 % Basophils (%) (Auto) 1.0 0.0-2.0 % Neutrophils # (Auto) 4.0 1.6-8.6 10 ^3/uL Lymphocytes # (Auto) 1.2 0.4-5.4 10 ^3/uL Monocytes # (Auto) 0.5 0-1.3 10 ^3/uL Eosinophils # (Auto) 0.6 0-0.8 10 ^3/uL Basophils # (Auto) 0.1 0-0.2 10 ^3/uL Nucleated Red Blood Cells 0.1 % Sodium Level 137 136-145 mmol/L Potassium Level 4.7 3.5-5.1 mmol/L Chloride Level 102 98-107 mmol/L Carbon Dioxide Level 25 20-31 mmol/L Anion Gap 10 5-15 Blood Urea Nitrogen 8 L 9-23 mg/dL Creatinine 0.75 0.550-1.02 mg/dL Glomerular Filtration Rate Calc 88 >90 mL/min BUN/Creatinine Ratio 10.7 10.0-20.0 Serum Glucose 236 H 74-106 mg/dL Calcium Level 9.4 8.7-10.4 mg/dL Triglycerides Level 118 < 150 mg/dL Cholesterol Level 106 < 200 mg/dL LDL Cholesterol 58 < 100 mg/dL HDL Cholesterol 47 40-59 mg/dL Thyroid Stimulating Hormone (TSH) 0.97 0.55-4.78 uIU/mL Test 08/17/24 22:27 08/17/24 15:30 08/17/24 15:07 Range/Units D-Dimer, Quantitative 0.42 0.0-0.49 mg/L FEU Urine Color Light-yellow Yellow Urine Clarity Clear Clear Urine pH 6.5 5.0-9.0 Urine Specific Grant 1.033 1.001-1.035 Urine Protein Negative Negative Urine Ketones 1+ H Negative Urine Blood Negative Negative /uL Urine Nitrite Negative Negative Urine Bilirubin Negative Negative Urine Urobilinogen Normal Negative mg/dL Urine Leukocyte Esterase Negative Negative /uL Urine RBC 1 0 - 4 /hpf Urine Microscopic WBC 36 H 0-5 /HPF Urine Squamous Epithelial Cells Few <5 /hpf Urine Bacteria None seen None Seen /hpf Urine Yeast (Budding) Few None Seen /hpf Urine Glucose 4+ H Normal mg/dL Troponin I High Sensitivity < 3 L </=34 ng/L Assessment Syncope, rule out cardiac etiology Moderate aortic valve stenosis Hypertension Dyslipidemia Type 2 diabetes mellitus, uncontrolled (Hgb A1c 8.1%) History of TIA Narcolepsy Cataplexy Obstructive sleep apnea with CPAP use at night Morbid obesity Plan/Recommendation We will continue with the following plan/recommendations (Dr. Aceves): * Transthoracic echocardiogram from 08/13/2024 reveals EF 65% and moderate aortic stenosis * Carotid Doppler ultrasound: Negative * Orthostatic vitals * Cardiac surveillance Thank you for allowing us to care for this patient. Please call with any questions or concerns. Critical care time spent: 44 minutes This medical document was created using an electronic medical record system with voice recognition software and computerized dictation system. Although this document has been carefully reviewed, there might still be some phonetic and typographical errors. Occasional wrong-word or ``sound-alike substitutions may have occurred due to the inherent limitations of voice recognition software. These areas are purely typographical due to imperfections of the software programs and do not reflect any compromise in the patient's medical care. Ple ase read the chart carefully and recognize, using context, where these substitutions have occurred. Plan discussed with: Patient NYHA Physical activity limitations: NA Date of Service: Aug 18, 2024 Billing Provider: JACY FUENTES Cardiology Common Codes: [id number] INP/OBS CARE (High) Cardiology Consultation Codes: [id number] CONSULT <45MIN JACY FUENTES Aug 18, 2024 12:27
[2024-08-18] MEDS: NITROGLYCERIN 0.4 MG SL TAB SL PRN (15:52)
[2024-08-18] MEDS: SODIUM CHLORIDE 0.9% 1,000 ML IV ONE (16:01)
--- NOTE | 2024-08-18 16:14 | DVHPNRES ---
Progress Note Date Seen: Aug 18, 2024 Resident Creating Document: KIRILL JAMA RESIDENT Medical Necessity Reason Pt with a Central, PICC or Fol: No Subjective Review of Systems HPI- Dara Anthony is a 64-year-old female with past medical history of CAD, hypertension, hyperlipidemia, diabetes, recurrent UTIs, ulcerative colitis, obstructive sleep apnea with CPAP use at night,, diastolic heart failure, narcolepsy, depression, peripheral neuropathy, tubal ligation, , appendectomy, cholecystectomy, lumbar laminectomy, hernia repair, left shoulder repair, 2 Neuro stimulators, neck fusion, bilateral carpal tunnel surgery, and right ankle screws and plates placed in came with a complaint of syncope. As per patient she had a syncopal attack at home in the shower room. She had some nausea and dizziness. Patient also reported having another episode of unwitnessed syncope in the ER. On arrival her blood pressure was elevated for 455. Fever, chest pain, acute joint pain or swelling change in vision. She lab workup revealed negative for troponin I, urinalysis negative. Chest x-ray no cardiopulmonary abnormality noted. CTA negative for intracranial hemorrhage or infarction. Carotid Doppler negative for carotid artery stenosis right or left. EKG with a sinus rhythm no acute changes. Past Surgical History-Appendectomy, Cholecystectomy, , Hernia Repair, Other (Lumbar laminectomy who, left shoulder repair, 2 neuro stimulators, neck fusion, bilateral carpal tunnel surgery, right ankle screws and plates), Tubal Ligation Family History-Mom had hypertension and diabetes, Cancer, Other (Mom with colon cancer), dad noncontributory Past Social History-Lives at home, denies smoking or drug abuse, occasional drinking alcohol Allergy- indomethacin, sulfa drugs Patient was seen today at the bedside. Cardiovascular- deny acute chest pain or shortness of breath or cough or palpitation Respiratory- denies cough or short of breath or wheezing Gastrointestinal- denies any rectal bleeding, nausea or vomiting Musculoskeletal-denies acute joint swelling or tenderness or redness Neurological- denies acute dysarthria, dysphagia, change in vision Psychiatry- denies depression or SI or HI Skin- denies acute rash or purpura Patient was seen today for clinical evaluation. Labs and chart reviewed. Patient is a poor feeling better today, blood sugar level trending down duration. Cardiology recommendation reviewed and appreciated. Transthoracic echocardiogram from 08/13/2024 reveals EF 65% and moderate aortic stenosis. Ordered physical therapy. Chest x-ray no cardiopulmonary abnormality noted. CTA negative for intracranial hemorrhage or infarction. Carotid Doppler negative for carotid artery stenosis right or left. EKG with a sinus rhythm no acute changes. Objective vital signs Vital Sign Date Time Temp Pulse Resp B/P (MAP) Pulse Ox O2 Delivery O2 Flow Rate FiO2 08/18/24 15:52 112/49 08/18/24 13:48 74 15 08/18/24 13:01 94 08/18/24 09:00 Nasal Cannula* 2 28 08/17/24 22:00 98.2 98.2 medications Current Medications Medications Dose Ordered Sig/Feng Route Start Time Stop Time Status Last Admin Dose Admin Lisinopril 10 mg DAILY PO 08/18/24 10:00 08/18/24 10:41 10 MG Metoprolol Tartrate 25 mg BID PO 08/17/24 22:00 08/18/24 10:39 25 MG Gabapentin 300 mg BID PO 08/17/24 22:00 08/18/24 10:38 300 MG Duloxetine HCl 60 mg DAILY PO 08/18/24 10:00 08/18/24 10:38 60 MG Diagnostic Test (Pha) 1 strip IQ4HR 08/17/24 20:00 08/18/24 12:00 1 STRIP Insulin Human Regular IQ4HR SC 08/17/24 20:00 08/18/24 12:50 12 UNITS Dextrose 50 ml UD PRN IV 08/17/24 19:15 Ondansetron HCl 4 mg Q4HP PRN IV 08/17/24 19:15 08/18/24 04:36 4 MG Enoxaparin Sodium 40 mg DAILY SC 08/18/24 10:00 08/18/24 10:38 40 MG Acetaminophen 650 mg Q6HP PRN PO 08/17/24 19:15 Nitroglycerin 0.4 mg Q5MINP PRN SL 08/17/24 19:15 08/18/24 15:52 0.4 MG Morphine Sulfate 2 mg Q30M PRN IV 08/17/24 19:15 08/18/24 12:52 2 MG Acetaminophen/ Hydrocodone Bitart 1 tab Q6HP PRN PO 08/17/24 22:30 08/18/24 04:36 1 TAB Examination General examination- patient awake, alert, oriented, conversant HEENT- PEERLA, no acute nasal discharge Cardiovascular- S1-S2 audible, rate and rhythm regular, no murmur Respiratory- CTAB, no wheeze or rhonchi Gastrointestinal-nontender, bowel sound+. Nondistended Musculoskeletal-no acute joint swelling or tenderness or redness# Lower extremity- no leg edema noted Neurological- cranial nerves intact, no acute dysarthria or dysphagia Psychiatry- denies depression or SI or HI Skin- no acute rash or purpura laboratory and microbiology Laboratory Tests 08/18/24 08:34 08/18/24 08:20 Test 08/18/24 08:20 Range/Units Serum Glucose 236 H 74-106 mg/dL Problem List/Assessment/Plan Problem List/Assessment/Plan #Syncope, rule out cardiac cause/TIA - Chest x-ray no cardiopulmonary abnormality noted. CTA negative for intracranial hemorrhage or infarction. Carotid Doppler negative for carotid artery stenosis right or left. EKG with a sinus rhythm no acute changes. -ordered orthostatic vitals #Uncontrolled diabetes mellitus type with hyperglycemia -(Hgb A1c 8.1%) -continue insulin sliding scale as prescribed -patient was counseled about the importance of med compliance to avoid uncontrolled diabetes mellitus and complication #Moderate aortic valve stenosis - Transthoracic echocardiogram from 08/13/2024 reveals EF 65% and moderate aortic stenosis #Hypertension -monitor blood pressure #Dyslipidemia - #History of TIA #Narcolepsy #Cataplexy #Obstructive sleep apnea with CPAP use at night #Ulcerative colitis-no exacerbation -resume home medications #Morbid obesity -patient was counseled about the effect of obesity on health, weight reduction, low-fat diet, physical activity Goals of care/advance care planning; FULL CODE; discussed with the patient >15 minutes PUD prophylaxis: Lovenox DVT prophylaxis: Famotidine Plan discussed with Dr. Reeves , nursing staff, patient Total time spent on patient evaluation, chart review, assessment and plan, discussion discussion >31 minutes Plan discussed with: Patient Plan discussed with: Patient, Other (RN) My Orders My Orders Orders - KIRILL JAMA RESIDENT Procedure Category Date Status Time Pt Request For Service PT 08/18/24 Logged 14:26 Communication Order ORDERS 08/18/24 Transmitted 14:39 Date of Service: Aug 18, 2024 Billing Provider: WALTER JACKSON MD Common Visit Codes: [id number] INP/OBS CARE(HIGH) KIRILL JAMA Aug 18, 2024 16:14 WALTER JACKSON MD Aug 18, 2024 23:48
[2024-08-18 16:26] VITALS: RESP 16
[2024-08-18] MEDS: FAMOTIDINE (10MG/ML) 2ML VL IV ONE (16:45)
[2024-08-18 18:10] VITALS: BP 92/45; PULSE 71; RESP 18; TEMP 97.8; O2SAT 97
[2024-08-18 20:00] VITALS: PULSE 74
[2024-08-18 21:00] VITALS: BP 122/65; PULSE 75; RESP 18; TEMP 98; O2SAT 93
[2024-08-18] MEDS: FAMOTIDINE (10MG/ML) 2ML VL IV SCH (21:09)
[2024-08-19 01:00] VITALS: BP 106/58; PULSE 76; RESP 18; TEMP 97.9; O2SAT 95
[2024-08-19] MEDS: ALPRAZolam 0.25 MG TAB PO ONE (01:50)
[2024-08-19 05:00] VITALS: BP_SYST 109; BP_SYST 89; BP_SYST 92; BP_DIAS 34; BP_DIAS 41; BP_DIAS 66; PULSE 79; RESP 17; TEMP 97.6; O2SAT 90
[2024-08-19 07:54] LABS: Basophils # (auto) 0.1 10 ^3/uL (0-0.2); Mean Corpuscular Hgb Conc. 32.2 g/dL (32.0-36.0)
[2024-08-19 07:56] LABS: Anion Gap 9 (5-15); Carbon Dioxide 28 mmol/L (20-31); Chloride 101 mmol/L (98-107); Eosinophils # (auto) 0.7 10 ^3/uL (0-0.8); Eosinophils % (auto) 11.5 % (0.0-7.0); Hematocrit 38.9 % (36.0-46.0); Hemoglobin 12.5 g/dL (12.2-16.2); Lymphocytes # (auto) 1.7 10 ^3/uL (0.4-5.4); Lymphocytes % (auto) 27.2 % (10.0-50.0); Mean Corpuscular Volume 83.7 fL (80.0-100.0); Monocytes # (auto) 0.5 10 ^3/uL (0-1.3); Monocytes % (auto) 7.9 % (0.0-12.0); Neutrophils # (auto) 3.4 10 ^3/uL (1.6-8.6); Neutrophils % (auto) 52.4 % (37.0-80.0); Nucleated Red Blood Cells % 0.2 %; Platelet Count (auto) 218 10^3/uL (140-450); Potassium 3.9 mmol/L (3.5-5.1); Red Blood Cells 4.65 10^6/uL (4.0-5.20); Red Cell Distribution Width 16.7 % (11.8-14.3); Sodium 138 mmol/L (136-145); White Blood Cell 6.4 10^3/uL (4.4-10.8)
[2024-08-19 07:57] LABS: Calcium 9.3 mg/dL (8.7-10.4)
[2024-08-19 08:00] VITALS: PULSE 66; PULSE 69; RESP 19; O2SAT 100
[2024-08-19 08:02] LABS: BUN/Creatinine Ratio 14.9 (10.0-20.0); Blood Urea Nitrogen 10 mg/dL (9-23)
[2024-08-19 08:06] LABS: Glucose 195 mg/dL (74-106)
[2024-08-19 09:00] VITALS: BP 100/61; PULSE 69; RESP 19; TEMP 98; O2SAT 99
--- NOTE | 2024-08-19 10:07 | DVHDSRES ---
Discharge Summary Date of Admission Resident Creating Document: KIRILL JAMA Aug 17, 2024 at 18:54 Date of Discharge: Aug 19, 2024 Admitting Diagnosis Syncope , rule out TIA Labs/Diagnostic Data: Laboratory Results Test 08/19/24 07:55 08/19/24 06:00 08/18/24 20:50 08/18/24 10:16 POC Glucose 196 mg/dl (70-106) White Blood Count 6.4 10^3/uL (4.4-10.8) Red Blood Count 4.65 10^6/uL (4.0-5.20) Hemoglobin 12.5 g/dL (12.2-16.2) Hematocrit 38.9 % (36.0-46.0) Mean Corpuscular Volume 83.7 fL (80.0-100.0) Mean Corpuscular Hemoglobin 27.0 pg (28.0-32.0) Mean Corpuscular Hemoglobin Concent 32.2 g/dL (32.0-36.0) Red Cell Distribution Width 16.7 % (11.8-14.3) Platelet Count 218 10^3/uL (140-450) Mean Platelet Volume 8.2 fL (6.9-10.8) Neutrophils (%) (Auto) 52.4 % (37.0-80.0) Lymphocytes (%) (Auto) 27.2 % (10.0-50.0) Monocytes (%) (Auto) 7.9 % (0.0-12.0) Eosinophils (%) (Auto) 11.5 % (0.0-7.0) Basophils (%) (Auto) 1.0 % (0.0-2.0) Neutrophils # (Auto) 3.4 10 ^3/uL (1.6-8.6) Lymphocytes # (Auto) 1.7 10 ^3/uL (0.4-5.4) Monocytes # (Auto) 0.5 10 ^3/uL (0-1.3) Eosinophils # (Auto) 0.7 10 ^3/uL (0-0.8) Basophils # (Auto) 0.1 10 ^3/uL (0-0.2) Nucleated Red Blood Cells 0.2 % Sodium Level 138 mmol/L (136-145) Potassium Level 3.9 mmol/L (3.5-5.1) Chloride Level 101 mmol/L (98-107) Carbon Dioxide Level 28 mmol/L (20-31) Anion Gap 9 (5-15) Blood Urea Nitrogen 10 mg/dL (9-23) Creatinine 0.67 mg/dL (0.550-1.02) Glomerular Filtration Rate Calc 97 mL/min (>90) BUN/Creatinine Ratio 14.9 (10.0-20.0) Serum Glucose 195 mg/dL (74-106) Calcium Level 9.3 mg/dL (8.7-10.4) Magnesium Level 1.8 mg/dL (1.6-2.6) Test 08/18/24 08:20 08/17/24 22:27 08/17/24 15:30 08/17/24 15:07 Triglycerides Level 118 mg/dL (< 150) Cholesterol Level 106 mg/dL (< 200) LDL Cholesterol 58 mg/dL (< 100) HDL Cholesterol 47 mg/dL (40-59) Thyroid Stimulating Hormone (TSH) 0.97 uIU/mL (0.55-4.78) D-Dimer, Quantitative 0.42 mg/L FEU (0.0-0.49) Urine Color Light-yellow (Yellow) Urine Clarity Clear (Clear) Urine pH 6.5 (5.0-9.0) Urine Specific [place] 1.033 (1.001-1.035) Urine Protein Negative (Negative) Urine Ketones 1+ (Negative) Urine Blood Negative /uL (Negative) Urine Nitrite Negative (Negative) Urine Bilirubin Negative (Negative) Urine Urobilinogen Normal mg/dL (Negative) Urine Leukocyte Esterase Negative /uL (Negative) Urine RBC 1 /hpf (0 - 4) Urine Microscopic WBC 36 /HPF (0-5) Urine Squamous Epithelial Cells Few /hpf (<5) Urine Bacteria None seen /hpf (None Seen) Urine Yeast (Budding) Few /hpf (None Seen) Urine Glucose 4+ mg/dL (Normal) Troponin I High Sensitivity < 3 ng/L (</=34) Other Laboratory Tests 08/19/24 06:00 Brief Hx & Hospital Course: EM- Elvis Concepcion is a 64-year-old female with past medical history of CAD, hypertension, hyperlipidemia, diabetes, recurrent UTIs, ulcerative colitis, obstructive sleep apnea with CPAP use at night,, diastolic heart failure, narcolepsy, depression, peripheral neuropathy, tubal ligation, , appendectomy, cholecystectomy, lumbar laminectomy, hernia repair, left shoulder repair, 2 Neuro stimulators, neck fusion, bilateral carpal tunnel surgery, and right ankle screws and plates placed in came with a complaint of syncope. As per patient she had a syncopal attack at home in the shower room. She had some nausea and dizziness. Patient also reported having another episode of unwitnessed syncope in the ER. On arrival her blood pressure was elevated for 455. Fever, chest pain, acute joint pain or swelling change in vision. She lab workup revealed negative for troponin I, urinalysis negative. Chest x-ray no cardiopulmonary abnormality noted. CTA negative for intracranial hemorrhage or infarction. Carotid Doppler negative for carotid artery stenosis right or left. EKG with a sinus rhythm no acute changes.. Transthoracic echocardiogram from 08/13/2024 reveals EF 65% and moderate aortic stenosis. Hospital course-patient came with the hospital with a complaint of syncope. Patient was admitted to the hospital due to syncope to rule out TIA/hypotensive episode/uncontrolled diabetes mellitus with hyperglycemia. On arrival her blood pressure was elevated for 455. Fever, chest pain, acute joint pain or swelling change in vision. She lab workup revealed negative for troponin I, urinalysis negative. Chest x-ray no cardiopulmonary abnormality noted. CTA negative for intracranial hemorrhage or infarction. Carotid Doppler negative for carotid artery stenosis right or left. EKG with a sinus rhythm no acute changes.. Transthoracic echocardiogram from 08/13/2024 reveals EF 65% and moderate aortic stenosis. Orthostatic vitals was negative. Patient's symptom improved with conservative management. Patient was adamant about going home today. Patient was advised to resume home medications and follow up with the primary care physician in 1 week. Patient was advised to be compliant with the medications. Patient was advised for healthy diet, weight reduction. Patient was hemodynamically stable on discharge. Diagnosis #Syncope, rule out cardiac cause/TIA, maybe from hypotensive episode from hyperglycemic osmotic diuresis #Uncontrolled diabetes mellitus type with hyperglycemia #Moderate aortic valve stenosis #Hypertension #Dyslipidemia #History of TIA #Narcolepsy #Cataplexy #Obstructive sleep apnea with CPAP use at night #Ulcerative colitis-no exacerbation #Morbid obesity #ulcerative colitis, #anxiety, depression, Discharge plan Please resume home medications Please be compliant with the medication especially antidiabetic medications Please follow up with the primary care physician in 1 week Avoid dehydration Operations or Procedures [place] [id number] Ph: [phone] DIAGNOSTIC IMAGING Diagnostic Imaging Report : [id number] Signed PATIENT: ELVIS CONCEPCION ACCT: [id number] UNIT: [id number] : 1960 LOC: ER ROOM / BED: / AGE / SEX: 64 / F ADM STATUS: REG ER SERVICE 1346 ORDERING PHYSICIAN: MARIBELL WESTBROOK MD PROCEDURE(s): CXRP - CHEST PORTABLE REASON: syncope ORDER NUMBER(s): [id number], ACCESSION NUMBER(s): [id number] EXAM: XR Chest, 1 View CLINICAL INDICATION: syncope TECHNIQUE: Frontal view of the chest. COMPARISON: XY CHEST PORTABLE on DOS: 08/13/24, XY CHEST XRAY 1 VIEW on DOS: 05/14/24, XY CHEST PORTABLE on DOS: 05/03/24, XY CHEST PORTABLE on DOS: 04/27/24, XY CHEST PORTABLE on DOS: 04/14/24 FINDINGS: LUNGS AND PLEURAL SPACES: Unremarkable. No consolidation. No pneumothorax. HEART: Unremarkable. No cardiomegaly. MEDIASTINUM: Unremarkable. Normal mediastinal contour. BONES/JOINTS: Unremarkable. No acute fracture. OTHER FINDINGS: . None. IMPRESSION: No acute cardiopulmonary process. ATED BY: CHRIS BERMEO MD DICTATED DATE/TIME: 08/17/24 1601 SIGNED BY: CHRIS BERMEO MD SIGNED DATE/TIME: 08/17/24 1601 CC: [place] [id number] Ph: [phone] DIAGNOSTIC IMAGING Diagnostic Imaging Report : [id number] Signed PATIENT: ELVIS CONCEPCION ACCT: [id number] UNIT: [id number] : 1960 LOC: ER ROOM / BED: / AGE / SEX: 64 / F ADM STATUS: REG ER SERVICE 1346 ORDERING PHYSICIAN: MARIBELL WESTBROOK MD PROCEDURE(s): HWOCT - HEAD WITHOUT CONTRAST REASON: syncope ORDER NUMBER(s): [id number], ACCESSION NUMBER(s): [id number] EXAM: CT HEAD WITHOUT CONTRAST HISTORY: syncope COMPARISON: CT HEAD WITHOUT CONTRAST on DOS: 05/14/24, CT HEAD WITHOUT CONTRAST on DOS: 04/09/23 TECHNIQUE: Axial images of the head were obtained and reformatted in coronal and sagittal planes. All CT scans at this medical facility are performed using dose modulation techniques as appropriate to a performed exam including the following: Automated exposure control was utilized; adjustment of the MA and/or KV according to patient size; and use of iterative reconstruction technique. CT Dose: CTDI volume is 56 mGy. Dose-length product is 897 mGy*cm FINDINGS: There is no evidence of acute intracranial hemorrhage, mass, mass effect midline shift. There is no hydrocephalus or extra-axial fluid collection. [place]-white matter differentiation is maintained. The visualized paranasal sinuses and mastoid air cells are clear. The calvarium is intact. IMPRESSION: 1. No acute intracranial process. HS:Y ATED BY: CECILIO GREGORY MD DICTATED DATE/TIME: 08/17/24 1602 SIGNED BY: CECILIO GREGORY MD SIGNED DATE/TIME: 08/17/24 1602 CC: [place] [id number] Ph: [phone] DIAGNOSTIC IMAGING Diagnostic Imaging Report : [id number] Signed PATIENT: ELVIS CONCEPCION ACCT: [id number] UNIT: [id number] : 1960 LOC: OVERFLOW ROOM / BED: [address] [place] [address] AGE / SEX: 64 / F ADM STATUS: ADM IN SERVICE 04 ORDERING PHYSICIAN: HUBER REARDON PROCEDURE(s): CARCL - CAROTID DUPLX W COLOR DOP REASON: syncope ORDER NUMBER(s): [id number], ACCESSION NUMBER(s): [id number] Carotid Duplex Clinical History: syncope Comparison: None Technique: Duplex Doppler evaluation of the extracranial carotid and vertebral arteries including color Doppler and spectral/pulsed waveform analysis was performed. Findings: RIGHT SIDE: The peak systolic velocities are 92 cm/s in the CCA, 70 cm/s in the ICA. The ICA/CCA ratio is 0.8. The external carotid artery is patent with peak systolic velocity of cm/s proximally. There is appropriate antegrade flow in the right vertebral artery. LEFT SIDE: The peak systolic velocities are 119 cm/s in the CCA, 114 cm/s in the ICA. The ICA/CCA ratio is 1.0. The external carotid artery is patent with peak systolic velocity of cm/s proximally. There is appropriate antegrade flow in the left vertebral artery. IMPRESSION: No hemodynamically significant stenosis noted in right and left carotid system. Reference: Radiology 2003; 229:340-346 Normal ICA PSV is <125 cm/sec and no plaque or intimal thickening is visible sonographically additional criteria include ICA/CCA PSV ratio <2.0 and ICA EDV <40 cm/sec <50% ICA stenosis ICA PSV is <125 cm/sec and plaque or intimal thickening is visible sonographically additional criteria include ICA/CCA PSV ratio <2.0 and ICA EDV <40 cm/sec 50-69% ICA stenosis ICA PSV is 125-230 cm/sec and plaque is visible sonographically additional criteria include ICA/CCA PSV ratio of 2.0-4.0 and ICA EDV of 40-100 cm/sec 70% ICA stenosis but less than near occlusion ICA PSV is >230 cm/sec and visible plaque and luminal narrowing are seen at palma-scale and color Doppler ultrasound (the higher the Doppler parameters lie above the threshold of 230 cm/sec, the greater the likelihood of severe disease) additional criteria include ICA/CCA PSV ratio >4 and ICA EDV >100 cm/sec ATED BY: TONIO MADRID MD DICTATED DATE/TIME: 08/17/242010 SIGNED BY: TONIO MADRID MD SIGNED DATE/TIME: 08/17/242010 CC: Condition at Discharge: Stable Final Diagnosis/Problems List #Syncope, rule out cardiac cause/TIA #Uncontrolled diabetes mellitus type with hyperglycemia #Moderate aortic valve stenosis #Hypertension #Dyslipidemia #History of TIA #Narcolepsy #Cataplexy #Obstructive sleep apnea with CPAP use at night #Ulcerative colitis-no exacerbation #Morbid obesity #ulcerative colitis, #anxiety, depression, Discharge Disposition: Home Discharge Instruct/Medications Diet: Consistent carbohydrate, Cardiac 2g Na,low cholest Activity: No Restrictions, As Tolerated Follow Up/Referral: Please follow up with the primary care physician in 1 week Please follow up with the Cardiology in 2-3 weeks Please resume home medications Please be compliant with the medication especially antidiabetic medications Please follow up with the primary care physician in 1 week Avoid dehydration Medications: Please resume home medications Discharge Statement: "Patient was advised to return to the ER or call 911 if any headaches, dizziness, shortness of breath, chest pain, abdominal pain, bleeding, fevers, or worsening of medical condition. Patient was counseled about treatment plan, medications, possible side effects, patientverbalized understanding. All questions were answered to the best of my ability. This discharge took greater then 30 minutes in planning, reviewing documentation, counseling the patient, and discussing with other team members." ASSESSMENT ASSESSMENT Assessment Syncope, likely due to hypotension/hyperglycemia, ruled out TIA KIRILL JAMA RESIDENT Aug 19, 2024 10:07
[2024-08-19] MEDS: MESALAMINE 400mg Delayed Release Cap PO SCH (10:38)
[2024-08-19 11:28] VITALS: BP 100/61; PULSE 69; RESP 19; TEMP 98; O2SAT 99
[2024-08-19 13:40] VITALS: BP 104/64; PULSE 64; RESP 20; TEMP 98; O2SAT 96
== END 2024-08-19 12:50 | disposition home or self-care (01) | DRG 314 ==
LOC: ER 13:32 → EDBD 13:32 → OVERFLOW 18:54 → EAST 08-18 14:56
PROVIDERS: ADMIT Student in an Organized Health Care Education/Training Program; ATTEND Emergency Medicine
DX: I95.89 Other hypotension (principal); E11.00 Type 2 diabetes mellitus with hyperosmolarity without nonketotic hyperglycemic-hyperosmolar coma (NKHHC); I50.32 Chronic diastolic (congestive) heart failure; Z68.42 Body mass index [BMI] 45.0-49.9, adult; K51.90 Ulcerative colitis, unspecified, without complications; R35.89 Other polyuria; E11.65 Type 2 diabetes mellitus with hyperglycemia; E66.01 Morbid (severe) obesity due to excess calories; I11.0 Hypertensive heart disease with heart failure; E78.5 Hyperlipidemia, unspecified; I25.10 Atherosclerotic heart disease of native coronary artery without angina pectoris; F32.A Depression, unspecified; F41.9 Anxiety disorder, unspecified; G47.33 Obstructive sleep apnea (adult) (pediatric); G47.411 Narcolepsy with cataplexy; I35.0 Nonrheumatic aortic (valve) stenosis; Z88.2 Allergy status to sulfonamides; Z88.8 Allergy status to other drugs, medicaments and biological substances; Z79.899 Other long term (current) drug therapy; Z91.041 Radiographic dye allergy status; Z86.73 Personal history of transient ischemic attack (TIA), and cerebral infarction without residual deficits; Z90.49 Acquired absence of other specified parts of digestive tract; Z79.4 Long term (current) use of insulin; Z83.3 Family history of diabetes mellitus; Z82.49 Family history of ischemic heart disease and other diseases of the circulatory system; Z81.8 Family history of other mental and behavioral disorders; Z80.0 Family history of malignant neoplasm of digestive organs
CPT/HCPCS: 36415; 70450; 71045; 80048; 80061; 81001; 82962; 83735; 84443; 84484; 85025; 85379; 93886; 97163; 99291; G0378; J1815; J2405; J3490

== ENCOUNTER 2024-08-27 20:12 | Inpatient (IN) | payer MEDICARE, BC ==
[~2024-08-27] VITALS: Ht 162.6 cm; Wt 132.8 kg
[~2024-08-27 20:12] MED LIST changes: +CEPH500C PO; +DICY10CA PO; +FLUO-125 PO; +LIDO5DIS21 TOP; +[UNRECOGNIZED DRUG - CODE] PO
[2024-08-27 21:15] LABS: Basophils # (auto) 0.1 10 ^3/uL (0-0.2); Basophils % (auto) 0.8 % (0.0-2.0); Eosinophils # (auto) 0.5 10 ^3/uL (0-0.8); Eosinophils % (auto) 8.7 % (0.0-7.0); Hematocrit 40.8 % (36.0-46.0); Hemoglobin 13.5 g/dL (12.2-16.2); Lymphocytes # (auto) 1.7 10 ^3/uL (0.4-5.4); Mean Corpuscular Hemoglobin 28.2 pg (28.0-32.0); Mean Corpuscular Hgb Conc. 33.1 g/dL (32.0-36.0); Mean Corpuscular Volume 85.3 fL (80.0-100.0); Monocytes # (auto) 0.4 10 ^3/uL (0-1.3); Monocytes % (auto) 5.8 % (0.0-12.0); Neutrophils # (auto) 3.6 10 ^3/uL (1.6-8.6); Neutrophils % (auto) 57.7 % (37.0-80.0); Nucleated Red Blood Cells % 0.1 %; Platelet Count (auto) 201 10^3/uL (140-450); Red Blood Cells 4.78 10^6/uL (4.0-5.20); White Blood Cell 6.2 10^3/uL (4.4-10.8)
[2024-08-27 21:31] LABS: Alanine Aminotransferase 17 U/L (7-40); Albumin 4.4 g/dL (3.2-4.8); Alkaline Phosphatase 71 U/L (46-116); Anion Gap 7 (5-15); Aspartate Aminotransferase 17 U/L (13-40); BUN/Creatinine Ratio 10.7 (10.0-20.0); Bilirubin, Total 0.4 mg/dL (0.2-1.0); Calcium 9.5 mg/dL (8.7-10.4); Carbon Dioxide 25 mmol/L (20-31); Chloride 107 mmol/L (98-107); Potassium 4.1 mmol/L (3.5-5.1); Sodium 139 mmol/L (136-145); Total Protein 6.8 g/dL (5.7-8.2)
[2024-08-27 21:32] LABS: Blood Urea Nitrogen 8 mg/dL (9-23); Glucose 175 mg/dL (74-106)
--- NOTE | 2024-08-27 21:45 | DVH ---
CHEST RADIOGRAPH Indication: cp Technique: Single frontal view of the chest was obtained Comparison: XY CHEST PORTABLE on DOS: 08/17/24, XY CHEST PORTABLE on DOS: 08/13/24, XY CHEST XRAY 1 VIE W on DOS: 05/14/24 FINDINGS: Lines and Tubes: None Lungs: No focal consolidation. Pleura: No effusion. No pneumothorax. Cardiomediastinal contours: Unremarkable Bones: No acute osseous abnormality. IMPRESSION: 1. No acute cardiopulmonary disease.
[2024-08-27 23:40] LABS: Urine Bacteria None Seen /hpf (None Seen)
[2024-08-27 23:50] LABS: Urine Blood Negative /uL (Negative); Urine Clarity Clear (Clear); Urine Color Yellow (Yellow); Urine Protein, UAD Negative (Negative); Urine Squamous Epithelial Cell FEW /hpf (<5); Urine Urobilinogen Normal (Negative); Urine WBC 11 /HPF (0-5); Urine pH 6.5 (5.0-9.0)
[2024-08-27] MEDS: ONDANSETRON HCL 4 MG/2 ML VIAL IM ONE (23:52)
[2024-08-27] MEDS: MORPHINE SULFATE 4 MG/ML SYR/VIAL IM ONE (23:53)
--- NOTE | 2024-08-27 23:59 | ED.PDOC ---
HPI Comments 64-year-old female brought in by EMS patient complaining of chest pain 01/31. Nothing relieves it. She was given nitroglycerin in route with no alleviation. Patient states the chest pain started approximate 6:00 p.m.. Chief Complaint: Chest Pain Time Seen by MD: 20:15 Primary Care Provider: BRIDGETTE Reviewed Notes: Nurses Notes Allergies: Coded Allergies: Sulfa Drugs (Verified Allergy, Mild, rash, 08/13/24) Indomethacin (Verified Adverse Reaction, Mild, migraine, 08/13/24) Home Meds Active Scripts Gabapentin (Gabapentin) 300 Mg Cap, 300 MG PO TID for 30 Days, #90 CAP 3 Refills Prov:TAOSETH Whitney Shabana DO 08/16/24 Docusate Sodium (Docusate Sodium) 100 Mg Cap, 100 MG PO BIDPRN PRN for 15 Days, #15 CAP Prov:MOUNIKA TILLMAN MD 04/20/24 Fluticasone Propionate (Nasal) (Fluticasone Propionate) 50 Mcg/Act Spr, 50 MCG EACHNOSTRI Q12HR for 30 Days, #2 SPRAY Prov:MOUNIKA TILLMAN MD 04/17/24 Insulin Regular (Human) (Novolin R Flexpen) 100 Unit/Ml Inj, 15 UNIT IJ TID for 28 Days, #100 INJ 15 units before meals, cheack blood sugar 2 hours after meal and add sliding scale Prov:MOUNIKA TILLMAN MD 04/17/24 Insulin Glargine (Lantus Solostar) 100 Unit/Ml Inj, 90 UNITS SC DAILY for 28 Days, #30 INJ Prov:MOUNIKA TILLMAN MD 04/17/24 Reported Medications Semaglutide (Ozempic) 2 Mg/3 Ml Inj, 2 MG SC, INJ 08/13/24 Metoprolol Tartrate (Metoprolol Tartrate) 25 Mg Tab, 1 TAB PO BID, #180 TAB 1 Refill 08/13/24 Mesalamine (Mesalamine Dr) 400 Mg Cap, 400 MG PO, CAP 08/13/24 Duloxetine Hcl (Cymbalta) 60 Mg Cap, 1 CAP PO DAILY, #90 CAP 3 Refills 08/13/24 Ondansetron HCl (Ondansetron) 4 Mg Tab, 4 MG PO DAILY PRN for NAUSEA 07/15/23 Zolpidem Tartrate (Zolpidem Tartrate) 10 Mg Tab, 1 TAB PO HS 07/15/23 Pitolisant Hydrochloride (Wakix) 17.8 Mg Tab, 2 TAB PO DAILY for NARCOLEPSY for 90 Days, #180 11/02/21 Lisinopril (Lisinopril) 10 Mg Tab, 10 MG PO DAILY for 30 Days, MG 07/26/16 Information Source: Patient Mode of Arrival: EMS Past Medical History PAST MEDICAL HISTORY: Anxiety, CAD, Depression, DM, High Lipids, HTN, TIA, UTI'S Surgical History: Appendectomy, BTL, Cholecystectomy, , Hernia Repair ENGRAVER BLOCK History: No Pertinent ENGRAVER BLOCK History Family History Family History: Family hx of DM, Family hx of Cancer, Family hx of heart rimma Social History Smoker: Non-Smoker Alcohol: Denies ETOH Use Drugs: Denies Drug Use Lives In: Home Constitutional: denies: chills, diaphoresis, fatigue, fever, malaise, sweats, weakness, others EENTM: denies: blurred vision, double vision, ear bleeding, ear discharge, ear drainage, ear pain, ear ringing, eye pain, eye redness, hearing loss, mouth pain, mouth swelling, nasal discharge, nose bleeding, nose congestion, nose pain, photophobia, tearing, throat pain, throat swelling, voice changes, others Respiratory: denies: cough, hemoptysis, orthopnea, SOB at rest, shortness of breath, SOB with excertion, stridor, wheezing, others Cardiovascular: reports: chest pain; denies: dizzy spells, diaphoresis, Dyspnea on exertion, edema, irregular heart beat, left arm pain, lightheadedness, palpitations, PND, syncope, others Gastrointestinal: denies: abdomen distended, abdominal pain, blood streaked bowels, constipated, diarrhea, dysphagia, difficulty swallowing, hematemesis, melena, nausea, poor appetite, poor fluid intake, rectal bleeding, rectal pain, vomiting, others Genitourinary: denies: abnormal vagina bleeding, burning, dyspareunia, dysuria, flank pain, frequency, hematuria, incontinence, pain, , vagina discharge, urgency, others Neurological: denies: dizziness, fainting, headache, left sided numbness, left sided weakness, numbness, paresthesia, pre-existing deficit, right sided numbness, right sided weakness, seizure, speech problems, tingling, tremors, weakness, others Musculoskeletal: denies: back pain, gout, joint pain, joint swelling, muscle pain, muscle stiffness, neck pain, others Integumetry: denies: bruises, change in color, change in hair/nails, dryness, laceration, lesions, lumps, rash, wounds, others Allergic/Immunocompromised: denies: Difficulty Healing, Frequent Infections, Hives, Itching, others Physical Exam General Appearance: No Apparent Distress, Normal HEENT: Normal ENT Inspection, Pharynx Normal, TMs Normal Neck: Full Range of Motion, Non-Tender, Normal, Normal Inspection Respiratory: Chest Non-Tender, Lungs Clear, No Accessory Muscle Use, No Respiratory Distress, Normal Breath Sounds Cardiovascular: No Edema, No JVD, No Murmur, No Gallop, Normal Peripheral Pu lses, Regular Rate/Rhythm Breast Exam: Deferred Gastrointestinal: No Organomegaly, Non Tender, No Pulsatile Mass, Normal Bowel Sounds, Soft Genitalia: Deferred Pelvic: Deferred Rectal: Deferred Extremities: No calf tenderness, Normal capillary refill, Normal inspection, Normal range of motion, Non-tender, No pedal edema Musculoskeletal : Apperance: Normal Neurologic: Alert, service correspondent II-XII nml as Tested, No Motor Deficits, Normal Affect, Normal Mood, No Sensory Deficits Cerebellar Function: Normal Reflexes: Normal Skin: Dry, Normal Color, Warm Lymphatic: No Adenopathy Was a procedure done? Was a procedure done?: No CP Differential Dx Differential Diagnosis: Angina, Anxiety / Panic Attack, MN, Pulmonary Embolus Differential Diagnosis: HTN Essential, HTN Accelerated X-Ray, Labs, Meds, VS Vital Signs Date Time Temp Pulse Resp B/P (MAP) Pulse Ox O2 Delivery O2 Flow Rate FiO2 08/27/24 23:47 79 20 95 Room Air 08/27/24 23:47 98.6 79 20 126/54 (78) 95 98.6 08/27/24 20:28 98.7 81 16 108/70 (83) 98 08/27/24 20:23 72 Lab Test 08/27/24 23:40 08/27/24 21:35 08/27/24 20:45 Range/Units Urine Color Yellow Yellow Urine Clarity Clear Clear Urine pH 6.5 5.0-9.0 Urine Specific [place] 1.010 1.001-1.035 Urine Protein Negative Negative Urine Ketones Negative Negative Urine Blood Negative Negative /uL Urine Nitrite Negative Negative Urine Bilirubin Negative Negative Urine Urobilinogen Normal Negative mg/dL Urine Leukocyte Esterase Negative Negative /uL Urine RBC None seen 0 - 4 /hpf Urine Microscopic WBC 11 H 0-5 /HPF Urine Squamous Epithelial Cells Few <5 /hpf Urine Bacteria None seen None Seen /hpf Urine Glucose Normal Normal mg/dL Troponin I High Sensitivity < 3 L < 3 L </=34 ng/L White Blood Count 6.2 4.4-10.8 10^3/uL Red Blood Count 4.78 4.0-5.20 10^6/uL Hemoglobin 13.5 12.2-16.2 g/dL Hematocrit 40.8 36.0-46.0 % Mean Corpuscular Volume 85.3 80.0-100.0 fL Mean Corpuscular Hemoglobin 28.2 28.0-32.0 pg Mean Corpuscular Hemoglobin Concent 33.1 32.0-36.0 g/dL Red Cell Distribution Width 17.0 H 11.8-14.3 % Platelet Count 201 140-450 10^3/uL Mean Platelet Volume 8.1 6.9-10.8 fL Neutrophils (%) (Auto) 57.7 37.0-80.0 % Lymphocytes (%) (Auto) 27.0 10.0-50.0 % Monocytes (%) (Auto) 5.8 0.0-12.0 % Eosinophils (%) (Auto) 8.7 H 0.0-7.0 % Basophils (%) (Auto) 0.8 0.0-2.0 % Neutrophils # (Auto) 3.6 1.6-8.6 10 ^3/uL Lymphocytes # (Auto) 1.7 0.4-5.4 10 ^3/uL Monocytes # (Auto) 0.4 0-1.3 10 ^3/uL Eosinophils # (Auto) 0.5 0-0.8 10 ^3/uL Basophils # (Auto) 0.1 0-0.2 10 ^3/uL Nucleated Red Blood Cells 0.1 % Sodium Level 139 136-145 mmol/L Potassium Level 4.1 3.5-5.1 mmol/L Chloride Level 107 98-107 mmol/L Carbon Dioxide Level 25 20-31 mmol/L Anion Gap 7 5-15 Blood Urea Nitrogen 8 L 9-23 mg/dL Creatinine 0.75 0.550-1.02 mg/dL Glomerular Filtration Rate Calc 88 >90 mL/min BUN/Creatinine Ratio 10.7 10.0-20.0 Serum Glucose 175 H 74-106 mg/dL Calcium Level 9.5 8.7-10.4 mg/dL Total Bilirubin 0.4 0.2-1.0 mg/dL Aspartate Amino Transferase (AST) 17 13-40 U/L Alanine Aminotransferase (ALT) 17 7-40 U/L Alkaline Phosphatase 71 46-116 U/L B-Type Natriuretic Peptide 18.74 0-100 pg/mL Total Protein 6.8 5.7-8.2 g/dL Albumin 4.4 3.2-4.8 g/dL X-Ray, Labs, Meds, VS Comment Patient will be admitted for chest pain rule out ACS Patient was still reporting 8/10 chest pain Patient given morphine four Zofran four Time of 1ST Reevaluation: 23:58 Reevaluation 1ST: Improved Patient Education/Counseling: Diagnosis, Treatment Family Education/Counseling: Diagnosis Departure 1 Departure Time of Disposition: 23:57 Impression: Primary Impression: Chest pain Qualified Codes: R07.9 - Chest pain, unspecified Disposition: 09 ADMITTED INPATIENT Condition: Fair Discharged With: Self Critical Care Note Critical Care Time?: No Stability Stability form required: No Heart Score Heart Score: Heart Score Response (Comments) Value History Highly Suspicious 2 EKG Normal 0 Age >65 2 Risk Factors 1 or 2 risk factors 1 Troponin Normal limit 0 Total 5 PHIL RAMÍREZ Aug 27, 2024 23:59
[2024-08-28] VITALS (8 sets, daily range): BP systolic 116–129; BP diastolic 51–77; PULSE 79–86; RESP 18–20; TEMP 97.9–98; O2SAT 93–100
[2024-08-28] MEDS ORDERED: ONDANSETRON HCL 4 MG/2 ML VIAL IV PRN (02:00)
[2024-08-28] MEDS ORDERED: LORazepam 0.5 MG TAB PO ONE (02:45)
[2024-08-28] MEDS ORDERED: LORazepam 0.5 MG TAB PO PRN (02:45)
[2024-08-28] MEDS ORDERED: DEXTROSE (50%) 50ML SYRG IV PRN ×2 (02:45→03:00)
--- NOTE | 2024-08-28 02:53 | DVHHPRES ---
History of Present Illness Resident Creating Document: BULMARO WILLSON RESIDENT History of Present Illness This is a 64-year-old female with past medical history of hypertension, type 2 diabetes, hyperlipidemia, chronic sinusitis, anxiety/panic attacks, ulcerative colitis, depression, who presented to the ED with chief complaint of acute chest pain. The patient reports that she received a devastating news from her daughter at 4:00 p.m and 2 hours later she started becoming anxious, agitated and developed a substernal chest pain. The patient locates the pain in the substernal region that radiates to the neck of the left side. The patient described the pain as a pressure type of pain in nature, rated the pain as 8/10 on the pain scale. The patient also reported that had a coronary angiogram on 03/09/2024 which showed no coronary artery stenosis there was no need of stent placement. At that time the patient was diagnosed with diastolic heart failure. Upon admission, initial labs showed normal CBC and BMP. BNP is on normal range at 18.74 and trops came back negative. EKG showed sinus rhythm with artifact on inferior leads but no ST segment elevation or depression or T-waves abnormalities. Last echocardiogram was performed on August 13, 2024 showing an LVEF of 65% with moderate aortic stenosis. Upon my examination, bilateral lung bloom were grossly clear with no wheezes or crackles at this time. There was very mild pedal edema bilaterally, the patient was still having chest pain in the substernal region that did not vary in intensity with palpation. We will admit the patient for further assessment and management. Past Surgical History: Appendectomy, Cholecystectomy, , Hernia Repair, Other (Lumbar laminectomy who, left shoulder repair, 2 neuro stimulators, neck fusion, bilateral carpal tunnel surgery, Tubal Ligation Past Social History: Lives at home, denies smoking or drug abuse, occasional drinking alcohol Cardiovascular: CHF, HTN, hyperipidemia Psych: Anxiety, Depression ENT: sinusitis Endocrine: Diabetes Past Surgical History: Appendectomy, Cholecystectomy, , Hernia Repair Family History: None Smoke: No ALCOHOL: none Drugs: None Lives: with Family Domestic Violence: Neg Review of Systems Constitutional: No: Fever, Chills, Sweats, Weakness, Malaise, Other Eyes: No: Pain, Vision change, Conjunctivae inflammation, Eyelid inflammation, Other, Redness ENT: No: Ear pain, Ear discharge, Nose pain, Nose discharge, Nose congestion, Mouth pain, Mouth swelling, Throat pain, Throat swelling, Other Respiratory: No: Cough, Dry, Shortness of breath, SOB with excertion, Wheezing, Hemoptysis, Pleuritic Pain, Sputum, Wheezing, Other Cardiovascular: Chest Pain; No: Palpitations, Orthopnea, Paroxysmal Noc. Dyspnea, Edema, Lt Headedness, Other Gastrointestinal: No: Nausea, Vomiting, Abdominal Pain, Diarrhea, Constipation, Melena, Hematochezia, Other Genitourinary: No Dysuria, No Frequency, No Incontinence, No Hematuria, No Retention, No Other Musculoskeletal: No: other, neck pain, shoulder pain, arm pain, back pain, hand pain, leg pain, foot pain Skin: No: Rash, Lesions, Jaundice, Bruising, Other Neurological: Other (anxiety, panic attacks); No: Weakness, Numbness, Incoordination, Change in speech, Confusion, Seizures Allergies: Coded Allergies: Sulfa Drugs (Verified Allergy, Mild, rash, 08/13/24) Indomethacin (Verified Adverse Reaction, Mild, migraine, 08/13/24) Medications Current Medications Medications Dose Ordered Sig/Feng Route Start Time Stop Time Status Last Admin Dose Admin Acetaminophen 650 mg Q6HP PRN PO 08/28/24 02:00 UNV Ondansetron HCl 4 mg Q4HP PRN IV 08/28/24 02:00 UNV Enoxaparin Sodium 40 mg DAILY SC 08/28/24 10:00 UNV Exam Vital Signs Vital Signs Date Time Temp Pulse Resp B/P (MAP) Pulse Ox O2 Delivery O2 Flow Rate FiO2 08/28/24 01:59 76 08/28/24 00:40 19 132/76 08/27/24 23:47 95 Room Air 08/27/24 23:47 98.6 98.6 General Appearance: Alert, Oriented X3, Cooperative, No acute distress HEENT: Atraumatic, PERRLA, EOMI, Mucous membr. moist/pink Respiratory: Clear to auscultation, Normal air movement Cardiovascular: Regular rate, Normal S1, Normal S2, No murmurs Abdominal: Normal bowel sounds, Soft, No tenderness, No hepatospenomegaly, No masses Extremities: No clubbing, No cyanosis, No edema, Normal pulses, No tenderness/swelling Skin: No rashes, No breakdown, No significant lesion Neuro: Normal gait, Normal speech, Strength at 5/5 X4 ext, Normal tone, Sensation intact, Cranial nerves 3-12 NL, Reflexes 2+ Psych/Mental Status: Mental status NL, Mood NL Labs/Xrays Labs Test 08/27/24 23:40 08/27/24 21:35 08/27/24 20:45 Range/Units Urine Color Yellow Yellow Urine Clarity Clear Clear Urine pH 6.5 5.0-9.0 Urine Specific [place] 1.010 1.001-1.035 Urine Protein Negative Negative Urine Ketones Negative Negative Urine Blood Negative Negative /uL Urine Nitrite Negative Negative Urine Bilirubin Negative Negative Urine Urobilinogen Normal Negative mg/dL Urine Leukocyte Esterase Negative Negative /uL Urine RBC None seen 0 - 4 /hpf Urine Microscopic WBC 11 H 0-5 /HPF Urine Squamous Epithelial Cells Few <5 /hpf Urine Bacteria None seen None Seen /hpf Urine Glucose Normal Normal mg/dL Troponin I High Sensitivity < 3 L </=34 ng/L White Blood Count 6.2 4.4-10.8 10^3/uL Red Blood Count 4.78 4.0-5.20 10^6/uL Hemoglobin 13.5 12.2-16.2 g/dL Hematocrit 40.8 36.0-46.0 % Mean Corpuscular Volume 85.3 80.0-100.0 fL Mean Corpuscular Hemoglobin 28.2 28.0-32.0 pg Mean Corpuscular Hemoglobin Concent 33.1 32.0-36.0 g/dL Red Cell Distribution Width 17.0 H 11.8-14.3 % Platelet Count 201 140-450 10^3/uL Mean Platelet Volume 8.1 6.9-10.8 fL Neutrophils (%) (Auto) 57.7 37.0-80.0 % Lymphocytes (%) (Auto) 27.0 10.0-50.0 % Monocytes (%) (Auto) 5.8 0.0-12.0 % Eosinophils (%) (Auto) 8.7 H 0.0-7.0 % Basophils (%) (Auto) 0.8 0.0-2.0 % Neutrophils # (Auto) 3.6 1.6-8.6 10 ^3/uL Lymphocytes # (Auto) 1.7 0.4-5.4 10 ^3/uL Monocytes # (Auto) 0.4 0-1.3 10 ^3/uL Eosinophils # (Auto) 0.5 0-0.8 10 ^3/uL Basophils # (Auto) 0.1 0-0.2 10 ^3/uL Nucleated Red Blood Cells 0.1 % Sodium Level 139 136-145 mmol/L Potassium Level 4.1 3.5-5.1 mmol/L Chloride Level 107 98-107 mmol/L Carbon Dioxide Level 25 20-31 mmol/L Anion Gap 7 5-15 Blood Urea Nitrogen 8 L 9-23 mg/dL Creatinine 0.75 0.550-1.02 mg/dL Glomerular Filtration Rate Calc 88 >90 mL/min BUN/Creatinine Ratio 10.7 10.0-20.0 Serum Glucose 175 H 74-106 mg/dL Calcium Level 9.5 8.7-10.4 mg/dL Total Bilirubin 0.4 0.2-1.0 mg/dL Aspartate Amino Transferase (AST) 17 13-40 U/L Alanine Aminotransferase (ALT) 17 7-40 U/L Alkaline Phosphatase 71 46-116 U/L B-Type Natriuretic Peptide 18.74 0-100 pg/mL Total Protein 6.8 5.7-8.2 g/dL Albumin 4.4 3.2-4.8 g/dL Assessment/Plan Assessment/Plan Assessment/Plan Acute chest pain, Ruled out ACS Possible anxiety disorder with panic attacks Possible acute on chronic diastolic heart failure -Initial chest x-ray was grossly unremarkable, no evidence of clear consolidations or very marked vascular congestion -EKG showed sinus rhythm, with some artifacts in the inferior leads but no ST segment elevation or depression or T-waves abnormalities -troponins came back negative -BNP was normal range at 18.74 -last echocardiogram performed on August 13, 2024 showing an LVEF of 65% with moderate aortic stenosis -coronary angiogram was performed on 03/09/2024 showing no evidence of coronary artery disease, stenosis with no need of stent placement -cardiac diet -monitor in's and out -Start furosemide 20mg IV daily -Restart duloxetine 60mg daily for anxiety -1mg of ativan was given for panic attack Primary hypertension -Start lisinopril 10 mg daily -Monitor BP closely Type II Diabetes Mellitus -Ordered HbA1c -start mild sliding scale insulin Hx of Depression/anxiety disorder and panic attacks -duloxetine 60 mg daily -Ativan 1 mg once, was given in the ED -Ativan 0.5 mg q.8 p.r.n. if severe anxiety Goals of care discussed with the patient for >35min, FULL CODE Plan discussed with Dr. Thompson Plan discussed with: Patient My Orders Orders - BULMARO WILLSON Procedure Category Date Status Time Admit ADMIT 08/28/24 Transmitted 01:58 Code Status CODE 08/28/24 Transmitted 01:58 Vital Signs [facility] 08/28/24 In Process 01:58 Review Orders With [facility] 08/28/24 In Process Adm. 01:58 Encourage Activity As [facility] 08/28/24 In Process Tolerate 01:58 Acetaminophen Tablet [facility] 08/28/24 Logged (Tylenol Tablet) 02:00 Notify Of Changes [facility] 08/28/24 In Process From Base 01:58 Advance Directive [facility] 08/28/24 In Process 01:58 Basic Metabolic Panel LAB 08/28/24 Logged 04:00 Urinalysis LAB 08/28/24 Logged 01:58 Complete Blood Count LAB 08/28/24 Logged 04:00 Lipid Panel LAB 08/28/24 Logged 01:58 Patient Condition ORDERS 08/28/24 Transmitted 01:58 Allergies [facility] 08/28/24 In Process 01:58 Ondansetron Hcl [facility] 08/28/24 Logged (Zofran) 02:00 Drug Screen LAB 08/28/24 Logged 01:58 Enoxaparin Sodium [facility] 08/28/24 Logged (Lovenox) 10:00 BULMARO WILLSON Aug 28, 2024 02:53
[2024-08-28] MEDS: LORazepam 0.5 MG TAB PO ONE (03:37)
[2024-08-28 03:57] LABS: LDL Cholesterol 78 mg/dL (< 100)
[2024-08-28 03:58] LABS: Cholesterol 137 mg/dL (< 200); HDL Cholesterol 41 mg/dL (40-59)
[2024-08-28 04:06] LABS: Triglycerides 232 mg/dL (< 150)
[2024-08-28 05:01] LABS: COVID19 ANTIGEN SOFIA FIA NEGATIVE (NEGATIVE); Rapid Influenza A Negative (Negative); Rapid Influenza B Negative (Negative)
[2024-08-28] MEDS: MORPHINE SULFATE INJ 2 MG/ml SYRG IV ONE ×3 (05:11→22:15)
[2024-08-28] MEDS ORDERED: ACCU-CHEK COMFORT CURVE STRIP VI SCH (07:00)
[2024-08-28] MEDS ORDERED: InsuLIN REG 1unit/0.01ml Soln (100units/ml) SC SCH (07:00)
[2024-08-28] MEDS: ACCU-CHEK COMFORT CURVE STRIP VI SCH (07:36)
[2024-08-28] MEDS: InsuLIN REG 1unit/0.01ml Soln (100units/ml) SC SCH (07:45)
--- NOTE | 2024-08-28 08:21 | ECG ---
[facility] Test Date: 2024-08-27 Test Time: 20:23:37 Pat Name: ELVIS CONCEPCION Department: er Room: 0244A Gender: F Operations Support Representative: jose : 1960 Requested By: PHIL RAMÍREZ Order Number: [id number] Reading MD: Alonzo Aceves Measurements Intervals [place] Rate: 72 P: 82 TX: 169 QRS: -39 QRSD: 140 T: 52 QT: 381 QTc: 417 Interpretive Statements Sinus rhythm Consider right atrial enlargement Nonspecific IVCD with LAD Probable inferior infarct, acute Artifact in lead(s) II,III,aVR,aVL,aVF,V4,V5,V6 Electronically Signed On 08-29-2024 18:02:21 PST by Alonzo Aceves Please click the below link to view image of tracing.
--- NOTE | 2024-08-28 08:22 | ECG ---
[facility] Test Date: 2024-08-28 Test Time: 01:59:20 Pat Name: ELVIS CONCEPCION Department: ER Room: 0244ADS Gender: F Car Salter: ER : 1960 Requested By: PHIL RAMÍREZ Order Number: [id number] Reading MD: Alonzo Aceves Measurements Intervals [place] Rate: 76 P: 0 NV: 168 QRS: -49 QRSD: 94 T: -21 QT: 371 QTc: 418 Interpretive Statements Sinus rhythm Left anterior fascicular block Abnormal R-wave progression, late transition Abnormal T, consider ischemia, inferior leads Artifact in lead(s) I,II,III,aVR,aVL,aVF,V1,V2,V4,V5,V6 Electronically Signed On 08-29-2024 18:03:46 PST by Alonzo Aceves Please click the below link to view image of tracing.
[2024-08-28 08:27] LABS: Basophils # (auto) 0.1 10 ^3/uL (0-0.2); Basophils % (auto) 0.7 % (0.0-2.0); Eosinophils # (auto) 0.6 10 ^3/uL (0-0.8); Eosinophils % (auto) 7.7 % (0.0-7.0); Lymphocytes # (auto) 1.8 10 ^3/uL (0.4-5.4); Lymphocytes % (auto) 24.4 % (10.0-50.0); Mean Corpuscular Hemoglobin 27.3 pg (28.0-32.0); Mean Corpuscular Hgb Conc. 32.6 g/dL (32.0-36.0); Mean Corpuscular Volume 83.7 fL (80.0-100.0); Monocytes # (auto) 0.6 10 ^3/uL (0-1.3); Monocytes % (auto) 7.9 % (0.0-12.0); Neutrophils # (auto) 4.4 10 ^3/uL (1.6-8.6); Neutrophils % (auto) 59.3 % (37.0-80.0); Platelet Count (auto) 220 10^3/uL (140-450); Red Blood Cells 5.14 10^6/uL (4.0-5.20); Red Cell Distribution Width 17.5 % (11.8-14.3); White Blood Cell 7.5 10^3/uL (4.4-10.8)
[2024-08-28 08:43] LABS: Potassium 4.3 mmol/L (3.5-5.1); Sodium 140 mmol/L (136-145)
[2024-08-28 08:44] LABS: Anion Gap 7 (5-15); Calcium 9.7 mg/dL (8.7-10.4); Carbon Dioxide 25 mmol/L (20-31)
[2024-08-28 08:46] LABS: Chloride 108 mmol/L (98-107)
[2024-08-28 08:49] LABS: BUN/Creatinine Ratio 13.6 (10.0-20.0); Blood Urea Nitrogen 11 mg/dL (9-23); Glucose 164 mg/dL (74-106)
[2024-08-28] MEDS: LORazepam 0.5 MG TAB PO PRN (09:44)
[2024-08-28] MEDS ORDERED: DULoxetine HCL 30 MG CAP PO SCH (10:00)
[2024-08-28] MEDS ORDERED: LISINOPRIL 5 MG TAB PO SCH (10:00)
[2024-08-28] MEDS ORDERED: FUROSEMIDE 20 MG/2 ML VIAL IV SCH ×2 (10:00)
[2024-08-28] MEDS: LISINOPRIL 5 MG TAB PO SCH (10:34)
[2024-08-28] MEDS: METOPROLOL TARTRATE 25 MG TAB PO SCH (10:35)
[2024-08-28] MEDS: DULoxetine HCL 30 MG CAP PO SCH (10:55)
[2024-08-28] MEDS: MESALAMINE 400mg Delayed Release Cap PO SCH (10:56)
[2024-08-28] MEDS: ENOXAPARIN SOD 40 MG/0.4 ML SYRINGE SC SCH (10:57)
[2024-08-28] MEDS: GABAPENTIN 300 MG CAP PO SCH (14:17)
[2024-08-28] MEDS ORDERED: MESA10003 RE (15:46)
[2024-08-28] MEDS ORDERED: METO25TA5 PO (15:46)
--- NOTE | 2024-08-28 16:52 | DVHPNRES ---
Progress Note Date Seen: Aug 28, 2024 Resident Creating Document: KIRILL JAMA RESIDENT Medical Necessity Reason Pt with a Central, PICC or Fol: No Subjective Review of Systems HPI-HPI- Dara Anthony is a 64-year-old female with past medical history of CAD, hypertension, hyperlipidemia, diabetes, recurrent UTIs, ulcerative colitis, obstructive sleep apnea with CPAP use at night,, diastolic heart failure, narcolepsy, depression, peripheral neuropathy, tubal ligation, , appendectomy, cholecystectomy, lumbar laminectomy, hernia repair, left shoulder repair, 2 Neuro stimulators, neck fusion, bilateral carpal tunnel surgery, and right ankle screws and plates placed inwho presented to the ED with chief complaint of acute chest pain. The patient reports that she received a devastating news from her daughter at 4:00 p.m and 2 hours later she started becoming anxious, agitated and developed a substernal chest pain. The patient locates the pain in the substernal region that radiates to the neck of the left side. The patient described the pain as a pressure type of pain in nature, rated the pain as 8/10 on the pain scale. The patient also reported that had a coronary angiogram on 03/09/2024 which showed no coronary artery stenosis there was no need of stent placement. At that time the patient was diagnosed with diastolic heart failure. Upon admission, initial labs showed normal CBC and BMP. BNP is on normal range at 18.74 and trops came back negative. EKG showed sinus rhythm with artifact on inferior leads but no ST segment elevation or depression or T-waves abnormalities. Last echocardiogram was performed on August 13, 2024 showing an LVEF of 65% with moderate aortic stenosis. Upon my examination, bilateral lung bloom were grossly clear with no wheezes or crackles at this time. There was very mild pedal edema bilaterally, the patient was still having chest pain in the substernal region that did not vary in intensity with palpation. Past Surgical History-Appendectomy, Cholecystectomy, , Hernia Repair, Other (Lumbar laminectomy who, left shoulder repair, 2 neuro stimulators, neck fusion, bilateral carpal tunnel surgery, right ankle screws and plates), Tubal Ligation Family History-Mom had hypertension and diabetes, Cancer, Other (Mom with colon cancer), dad noncontributory Past Social History-Lives at home, denies smoking or drug abuse, occasional drinking alcohol Allergy- indomethacin, sulfa drugs Patient was seen today at the bedside. Respiratory- denies cough or short of breath or wheezing Gastrointestinal- denies any rectal bleeding, nausea or vomiting Musculoskeletal-denies acute joint swelling or tenderness or redness Neurological- denies acute dysarthria, dysphagia, change in vision Psychiatry- denies depression or SI or HI Skin- denies acute rash or purpura Patient was seen today for clinical evaluation. Labs and chart reviewed. Patient reports ongoing chest pain, 01/31. Ordered morphine for pain. Objective vital signs Vital Sign Date Time Temp Pulse Resp B/P (MAP) Pulse Ox O2 Delivery O2 Flow Rate FiO2 08/28/24 15:17 79 18 94 Room Air* 0 21 08/28/24 14:55 97.9 129/77 (94) 97.9 medications Current Medications Medications Dose Ordered Sig/Feng Route Start Time Stop Time Status Last Admin Dose Admin Acetaminophen 650 mg Q6HP PRN PO 08/28/24 02:00 Enoxaparin Sodium 40 mg DAILY SC 08/28/24 10:00 08/28/24 10:57 40 MG Ondansetron HCl 4 mg Q4HP PRN IV 08/28/24 02:15 Insulin Human Regular ACHS SC 08/28/24 07:00 08/28/24 12:39 2 UNITS Dextrose 50 ml UD PRN IV 08/28/24 03:00 Lisinopril 10 mg DAILY PO 08/28/24 10:00 Lorazepam 0.5 mg Q8HPRN PRN PO 08/28/24 03:00 08/28/24 09:44 0.5 MG Duloxetine HCl 60 mg DAILY PO 08/28/24 10:00 08/28/24 10:55 60 MG Diagnostic Test (Pha) 1 strip ACHS 08/28/24 07:00 08/28/24 12:09 1 STRIP Gabapentin 300 mg TID PO 08/28/24 14:00 08/28/24 14:17 300 MG Mesalamine 400 mg DAILY PO 08/28/24 10:00 08/28/24 10:56 400 MG Metoprolol Tartrate 25 mg BID PO 08/28/24 10:00 Examination General examination- patient awake, alert, oriented, conversant HEENT- PEERLA, no acute nasal discharge Cardiovascular- S1-S2 audible, rate and rhythm regular, no murmur Respiratory- CTAB, no wheeze or rhonchi Gastrointestinal-nontender, bowel sound+. Nondistended Musculoskeletal-no acute joint swelling or tenderness or redness# Lower extremity- no leg edema noted Neurological- cranial nerves intact, no acute dysarthria or dysphagia Psychiatry- denies depression or SI or HI Skin- no acute rash or purpura laboratory and microbiology Laboratory Tests 08/28/24 08:05 Test 08/28/24 08:05 Range/Units Serum Glucose 164 H 74-106 mg/dL Problem List/Assessment/Plan Problem List/Assessment/Plan Assessment/Plan Acute chest pain, Ruled out ACS Rule out possible cardiac arrhythmia Possible anxiety disorder with panic attacks Possible acute on chronic diastolic heart failure -Initial chest x-ray was grossly unremarkable, no evidence of clear consolidations or very marked vascular congestion -EKG showed sinus rhythm, with some artifacts in the inferior leads but no ST segment elevation or depression or T-waves abnormalities -troponins came back negative -BNP was normal range at 18.74 -last echocardiogram performed on August 13, 2024 showing an LVEF of 65% with moderate aortic stenosis -coronary angiogram was performed on 03/09/2024 showing no evidence of coronary artery disease, stenosis with no need of stent placement -cardiac diet -monitor in's and out -continue furosemide 20mg IV daily -continue duloxetine 60mg daily for anxiety -1mg of ativan was given for panic attack Primary hypertension -continue lisinopril 10 mg daily -Monitor BP closely Type II Diabetes Mellitus -Ordered HbA1c -start mild sliding scale insulin Hx of Depression/anxiety disorder and panic attacks -duloxetine 60 mg daily -Ativan 1 mg once, was given in the ED -Ativan 0.5 mg q.8 p.r.n. if severe anxiety Goals of care/advance care planning; FULL CODE; discussed with the patient >15 minutes PUD prophylaxis: DVT prophylaxis: lovenox Plan discussed with Dr. Reeves , nursing staff, patient Total time spent on patient evaluation, chart review, assessment and plan, discussion discussion >35 minutes Plan discussed with: Patient Plan discussed with: Patient, Other (RN) My Orders My Orders Orders - KIRILL JAMA RESIDENT Procedure Category Date Status Time Gabapentin Capsule PHA 08/28/24 In Process (Neurontin Capsule) 14:[address] Capsule PHA 08/28/24 In Process (Delzicol Delayed 10:00 Metoprolol Tartrate PHA 08/28/24 In Process Tablet (Lopressor Ta 10:00 Consistent DIET 08/28/24 Transmitted Carb(Ccho)Diabetes Lunch Date of Service: Aug 28, 2024 Billing Provider: WALTER JACKSON MD Common Visit Codes: [id number] INP/OBS CARE(HIGH) KIRILL JAMA RESIDENT Aug 28, 2024 16:52 WALTER JACKSON MD Aug 31, 2024 01:50
[2024-08-28] MEDS: ACETAMINOPHEN 325 MG TAB PO PRN (17:44)
[2024-08-29] VITALS (9 sets, daily range): BP systolic 97–140; BP diastolic 55–83; PULSE 73–121; RESP 18–24; TEMP 97.4–97.9; O2SAT 93–100
[2024-08-29] MEDS: HYDROcodone-ACET 5/325MG TAB PO PRN (01:40)
[2024-08-29 06:50] LABS: Anion Gap 8 (5-15); Carbon Dioxide 25 mmol/L (20-31); Chloride 106 mmol/L (98-107); Potassium 4.1 mmol/L (3.5-5.1); Sodium 139 mmol/L (136-145)
[2024-08-29 06:51] LABS: Calcium 9.2 mg/dL (8.7-10.4)
[2024-08-29 06:56] LABS: BUN/Creatinine Ratio 15.7 (10.0-20.0); Blood Urea Nitrogen 11 mg/dL (9-23)
[2024-08-29 06:57] LABS: Magnesium 1.9 mg/dL (1.6-2.6)
[2024-08-29 07:06] LABS: Glucose 142 mg/dL (74-106)
[2024-08-29] MEDS ORDERED: MORPHINE SULFATE INJ 2 MG/ml SYRG IV PRN (10:00)
--- NOTE | 2024-08-29 10:25 | DVHPNRES ---
Progress Note Date Seen: Aug 29, 2024 Resident Creating Document: ALCIDES TURNER RESIDENT Medical Necessity Reason Pt with a Central, PICC or Fol: No Subjective Review of Systems 08/29/24-patient seen and examined at the bedside. Reports continuous chest pain for the past 2 days, nonradiating. Repeat troponin WNL. Walk test with SpO2 ordered, orthostatic vitals ordered. 0.5 mg morphine IV administered. Cardiology consulted Objective vital signs Vital Sign Date Time Temp Pulse Resp B/P (MAP) Pulse Ox O2 Delivery O2 Flow Rate FiO2 08/29/24 09:00 97.4 73 20 97/55 (69) 98 97.4 08/28/24 20:00 Nasal Cannula* 2 28 Total Intake and Output 08/28/24 08/28/24 08/29/24 15:00 23:00 07:00 Intake Total 880 ml 900 ml Balance 880 ml 900 ml medications Current Medications Medications Dose Ordered Sig/Feng Route Start Time Stop Time Status Last Admin Dose Admin Acetaminophen 650 mg Q6HP PRN PO 08/28/24 02:00 08/28/24 17:44 650 MG Enoxaparin Sodium 40 mg DAILY SC 08/28/24 10:00 08/28/24 10:57 40 MG Ondansetron HCl 4 mg Q4HP PRN IV 08/28/24 02:15 Insulin Human Regular ACHS SC 08/28/24 07:00 08/29/24 05:59 2 UNITS Dextrose 50 ml UD PRN IV 08/28/24 03:00 Lisinopril 10 mg DAILY PO 08/28/24 10:00 Duloxetine HCl 60 mg DAILY PO 08/28/24 10:00 08/28/24 10:55 60 MG Diagnostic Test (Pha) 1 strip ACHS 08/28/24 07:00 08/29/24 06:02 1 STRIP Gabapentin 300 mg TID PO 08/28/24 14:00 08/29/24 06:01 300 MG Mesalamine 400 mg DAILY PO 08/28/24 10:00 08/28/24 10:56 400 MG Metoprolol Tartrate 25 mg BID PO 08/28/24 10:00 08/28/24 22:15 25 MG Acetaminophen/ Hydrocodone Bitart 1 tab Q6HPRN PRN PO 08/29/24 01:30 Hold 08/29/24 01:40 1 TAB Morphine Sulfate 0.5 mg Q1HP PRN IV 08/29/24 10:00 Examination Patient lying in bed, in no acute distress General: Well-built, afebrile, palor, mucosae are moist Cardiovascular: Regular S1 and S2. No murmurs, gallops or rubs. No JVD elevation. No pedal edema Respiratory: Normal B/L air entry on room air. Clear lung sounds on auscultation Abdomen: Soft, nontender, nondistended, normoactive bowel sounds, no rebound tenderness, no organomegaly, no masses Genitourinary: Deferred MSK/skin: Mobilizes 4 limbs. Skin is dry and warm Neurological: No motor, no sensitive deficits, normal speech. Pupils are isocoric and reactive. Psych/Mental Status: A/Ox3 laboratory and microbiology Laboratory Tests 08/29/24 05:44 08/28/24 08:05 Test 08/29/24 05:44 Range/Units Serum Glucose 142 H 74-106 mg/dL Labs and/or images reviewed: Labs reviewed by me, Image(s) reviewed by me Problem List/Assessment/Plan Problem List/Assessment/Plan 08/29/2024 Reports continuous chest pain for the past 2 days, nonradiating. Repeat troponin WNL. Walk test with SpO2 ordered, orthostatic vitals ordered. 0.5 mg morphine IV administered. Cardiology consulted Acute chest pain, Ruled out ACS Rule out possible cardiac arrhythmia Possible anxiety disorder with panic attacks Possible acute on chronic diastolic heart failure -Initial chest x-ray was grossly unremarkable, no evidence of clear consolidations or very marked vascular congestion -EKG showed sinus rhythm, with some artifacts in the inferior leads but no ST segment elevation or depression or T-waves abnormalities -troponins came back negative -BNP was normal range at 18.74 -last echocardiogram performed on August 13, 2024 showing an LVEF of 65% with moderate aortic stenosis -coronary angiogram was performed on 03/09/2024 showing no evidence of coronary artery disease, stenosis with no need of stent placement -cardiac diet -monitor in's and out -continue furosemide 20mg IV daily -continue duloxetine 60mg daily for anxiety -1mg of ativan was given for panic attack Primary hypertension -continue lisinopril 10 mg daily -Monitor BP closely Type II Diabetes Mellitus -Ordered HbA1c -start mild sliding scale insulin Hx of Depression/anxiety disorder and panic attacks -duloxetine 60 mg daily -Ativan 1 mg once, was given in the ED -Ativan 0.5 mg q.8 p.r.n. if severe anxiety Goals of care/advance care planning; FULL CODE; discussed with the patient >15 minutes PUD prophylaxis: DVT prophylaxis: lovenox Plan discussed with Dr. MILLARD , nursing staff, patient Total time spent on patient evaluation, chart review, assessment and plan, discussion discussion >35 minutes Plan discussed with: Patient Plan discussed with: Patient My Orders My Orders Orders - ALCIDES TURNER Procedure Category Date Status Time Orthostatic Vital ORDERS 08/29/24 Transmitted Signs 08:57 Morphine Sulfate PHA 08/29/24 In Process Injection 10:00 Date of Service: Aug 29, 2024 Billing Provider: ELIOT MILLARD MD Common Visit Codes: [id number] INP/OBS CARE(HIGH) ALCIDES TURNER Aug 29, 2024 10:25 ELIOT MILLARD MD Aug 30, 2024 17:35
[2024-08-29] MEDS: MORPHINE SULFATE INJ 2 MG/ml SYRG IV ONE (11:22)
[2024-08-29 14:18] LABS: Urine Bacteria FEW /hpf (None Seen); Urine Blood Negative /uL (Negative); Urine Clarity Clear (Clear); Urine Color Light-Yellow (Yellow); Urine Protein, UAD Negative (Negative); Urine Squamous Epithelial Cell FEW /hpf (<5); Urine Urobilinogen Normal (Negative); Urine WBC 2 /HPF (0-5)
[2024-08-29 14:24] LABS: Opiate Scree,Urine Neg (NEGATIVE)
[2024-08-29 14:31] LABS: Amphetamine Screen, Urine Neg (NEGATIVE); Barbiturate Scree,Urine Neg (NEGATIVE); Benzodiazephine Screen, Urine Neg (NEGATIVE); Cannabinoid Screen, Urine Neg (NEGATIVE); Cocaine Screen, Urine Neg (NEGATIVE); Phencyclidine Screen, Urine Neg (NEGATIVE)
[2024-08-29] MEDS: MUPIROCIN 2% OINT 15gm or 22gm FOR MRSA NARES EACHNOSTRI SCH (16:10)
[2024-08-29] MEDS: ONDANSETRON HCL 4 MG/2 ML VIAL IV PRN (20:07)
[2024-08-29] MEDS ORDERED: LORazepam 0.5 MG TAB PO PRN (22:30)
[2024-08-29] MEDS: LORazepam 0.5 MG TAB PO PRN (22:50)
[2024-08-30 05:00] VITALS: BP_SYST 5; BP_SYST 89; BP_DIAS 48; PULSE 75; RESP 18; TEMP 98.2; O2SAT 99
[2024-08-30 08:00] VITALS: RESP 16
[2024-08-30] MEDS: SODIUM CHLORIDE 0.9% 500 ML IV ONE (08:41)
[2024-08-30 08:47] LABS: Chloride 106 mmol/L (98-107); Potassium 4.2 mmol/L (3.5-5.1); Sodium 139 mmol/L (136-145)
[2024-08-30 08:48] LABS: Anion Gap 5 (5-15); Calcium 9.4 mg/dL (8.7-10.4); Carbon Dioxide 28 mmol/L (20-31)
[2024-08-30 08:53] LABS: BUN/Creatinine Ratio 15.9 (10.0-20.0); Blood Urea Nitrogen 11 mg/dL (9-23)
[2024-08-30 08:54] LABS: Glucose 165 mg/dL (74-106); Magnesium 1.7 mg/dL (1.6-2.6)
[2024-08-30 09:00] VITALS: BP 103/58; PULSE 73; RESP 20; TEMP 97.5; O2SAT 97
--- NOTE | 2024-08-30 13:07 | DVHDSRES ---
Discharge Summary Date of Admission Resident Creating Document: ALCIDES TURNER RESIDENT Aug 28, 2024 at 01:58 Date of Discharge: Aug 30, 2024 Admitting Diagnosis Acute chest pain, rule out acute coronary syndrome Labs/Diagnostic Data: Laboratory Results Test 08/30/24 11:25 08/30/24 08:29 08/29/24 13:45 08/29/24 05:44 POC Glucose 175 mg/dl (70-106) Sodium Level 139 mmol/L (136-145) Potassium Level 4.2 mmol/L (3.5-5.1) Chloride Level 106 mmol/L (98-107) Carbon Dioxide Level 28 mmol/L (20-31) Anion Gap 5 (5-15) Blood Urea Nitrogen 11 mg/dL (9-23) Creatinine 0.69 mg/dL (0.550-1.02) Glomerular Filtration Rate Calc 96 mL/min (>90) BUN/Creatinine Ratio 15.9 (10.0-20.0) Serum Glucose 165 mg/dL (74-106) Calcium Level 9.4 mg/dL (8.7-10.4) Magnesium Level 1.7 mg/dL (1.6-2.6) Urine Color Light-yellow (Yellow) Urine Clarity Clear (Clear) Urine pH 5.0 (5.0-9.0) Urine Specific [place] 1.010 (1.001-1.035) Urine Protein Negative (Negative) Urine Ketones Negative (Negative) Urine Blood Negative /uL (Negative) Urine Nitrite Negative (Negative) Urine Bilirubin Negative (Negative) Urine Urobilinogen Normal mg/dL (Negative) Urine Leukocyte Esterase Negative /uL (Negative) Urine RBC <1 /hpf (0 - 4) Urine Microscopic WBC 2 /HPF (0-5) Urine Squamous Epithelial Cells Few /hpf (<5) Urine Bacteria Few /hpf (None Seen) Urine Glucose Normal mg/dL (Normal) Urine Opiates Screen Neg (NEGATIVE) Urine Fentanyl Screen Neg (NEGATIVE) Urine Barbiturates Screen Neg (NEGATIVE) Urine Phencyclidine Screen Neg (NEGATIVE) Urine Amphetamines Screen Neg (NEGATIVE) Urine Benzodiazepines Screen Neg (NEGATIVE) Urine Cocaine Screen Neg (NEGATIVE) Urine Cannabinoids Screen Neg (NEGATIVE) Troponin I High Sensitivity 3 ng/L (</=34) Test 08/28/24 08:05 08/28/24 03:40 08/27/24 21:35 08/27/24 20:45 White Blood Count 7.5 10^3/uL (4.4-10.8) Red Blood Count 5.14 10^6/uL (4.0-5.20) Hemoglobin 14.0 g/dL (12.2-16.2) Hematocrit 43.0 % (36.0-46.0) Mean Corpuscular Volume 83.7 fL (80.0-100.0) Mean Corpuscular Hemoglobin 27.3 pg (28.0-32.0) Mean Corpuscular Hemoglobin Concent 32.6 g/dL (32.0-36.0) Red Cell Distribution Width 17.5 % (11.8-14.3) Platelet Count 220 10^3/uL (140-450) Mean Platelet Volume 8.4 fL (6.9-10.8) Neutrophils (%) (Auto) 59.3 % (37.0-80.0) Lymphocytes (%) (Auto) 24.4 % (10.0-50.0) Monocytes (%) (Auto) 7.9 % (0.0-12.0) Eosinophils (%) (Auto) 7.7 % (0.0-7.0) Basophils (%) (Auto) 0.7 % (0.0-2.0) Neutrophils # (Auto) 4.4 10 ^3/uL (1.6-8.6) Lymphocytes # (Auto) 1.8 10 ^3/uL (0.4-5.4) Monocytes # (Auto) 0.6 10 ^3/uL (0-1.3) Eosinophils # (Auto) 0.6 10 ^3/uL (0-0.8) Basophils # (Auto) 0.1 10 ^3/uL (0-0.2) Nucleated Red Blood Cells 0.0 % Influenza Type A Antigen Negative (Negative) Influenza Type B Antigen Negative (Negative) SARS-CoV-2 Antigen (Rapid) Negative (NEGATIVE) Triglycerides Level 232 mg/dL (< 150) Cholesterol Level 137 mg/dL (< 200) LDL Cholesterol 78 mg/dL (< 100) HDL Cholesterol 41 mg/dL (40-59) Total Bilirubin 0.4 mg/dL (0.2-1.0) Aspartate Amino Transferase (AST) 17 U/L (13-40) Alanine Aminotransferase (ALT) 17 U/L (7-40) Alkaline Phosphatase 71 U/L (46-116) B-Type Natriuretic Peptide 18.74 pg/mL (0-100) Total Protein 6.8 g/dL (5.7-8.2) Albumin 4.4 g/dL (3.2-4.8) Other Laboratory Tests 08/30/24 08:29 08/28/24 08:05 Brief Hx & Hospital Course: EM- Dara Anthony is a 64-year-old female with past medical history of CAD, hypertension, hyperlipidemia, diabetes, recurrent UTIs, ulcerative colitis, obstructive sleep apnea with CPAP use at night,, diastolic heart failure, narcolepsy, depression, peripheral neuropathy, tubal ligation, , appendectomy, cholecystectomy, lumbar laminectomy, hernia repair, left shoulder repair, 2 Neuro stimulators, neck fusion, bilateral carpal tunnel surgery, and right ankle screws and plates placed inwho presented to the ED with chief complaint of acute chest pain. The patient reports that she received a devastating news from her daughter at 4:00 p.m and 2 hours later she started becoming anxious, agitated and developed a substernal chest pain. The patient locates the pain in the substernal region that radiates to the neck of the left side. The patient described the pain as a pressure type of pain in nature, rated the pain as 8/10 on the pain scale. The patient also reported that had a coronary angiogram on 03/09/2024 which showed no coronary artery stenosis there was no need of stent placement. At that time the patient was diagnosed with diastolic heart failure. Upon admission, initial labs showed normal CBC and BMP. BNP is on normal range at 18.74 and trops came back negative. EKG showed sinus rhythm with artifact on inferior leads but no ST segment elevation or depression or T-waves abnormalities. Last echocardiogram was performed on August 13, 2024 showing an LVEF of 65% with moderate aortic stenosis. Upon my examination, bilateral lung bloom were grossly clear with no wheezes or crackles at this time. Hospital course-patient came to the hospital due to acute chest pain. Patient was admitted to the hospital due to acute chest pain, rule out acute coronary syndrome. Upon admission, initial labs showed normal CBC and BMP. BNP is on normal range at 18.74 and trops came back negative. EKG showed sinus rhythm with artifact on inferior leads but no ST segment elevation or depression or T- waves abnormalities. Last echocardiogram was performed on August 13, 2024 showing an LVEF of 65% with moderate aortic stenosis. Upon my examination, bilateral lung bloom were grossly clear with no wheezes or crackles at this time. And symptoms improved clinically with conservative treatment. Patient is being discharged home with the recommendation to resume home medications. Patient was advised to follow up with the primary care physician in 1 week. Patient was also advised to follow up with the Cardiology in 1-2 weeks patient was hemodynamically stable on discharge. Diagnosis Acute chest pain likely due to panic attack/musculoskeletal Infected anxiety disorder with panic attacks Suspected acute on chronic diastolic heart failure #diabetes mellitus type 2 #Moderate aortic valve stenosis #Hypertension #Dyslipidemia #History of TIA #Narcolepsy #Cataplexy #Obstructive sleep apnea with CPAP use at night #Ulcerative colitis-no exacerbation #Morbid obesity #ulcerative colitis, #anxiety, depression, Condition at Discharge: Stable Final Diagnosis/Problems List Acute chest pain likely due to anxiety/musculoskeletal Ruled out acute coronary syndrome Suspected panic attack Discharge Disposition: Home Discharge Instruct/Medications Diet: Cardiac 2g Na,low cholest Activity: No Restrictions, As Tolerated Follow Up/Referral: Please follow up with the primary care physician in 1 week Please follow up with the spudder in 1-2 weeks Medications: Please resume home medications Discharge Statement: "Patient was advised to return to the ER or call 911 if any headaches, dizziness, shortness of breath, chest pain, abdominal pain, bleeding, fevers, or worsening of medical condition. Patient was counseled about treatment plan, medications, possible side effects, patientverbalized understanding. All questions were answered to the best of my ability. This discharge took greater then 30 minutes in planning, reviewing documentation, counseling the patient, and discussing with other team members." ASSESSMENT ASSESSMENT Assessment Acute chest pain likely due to anxiety/musculoskeletal Ruled out acute coronary syndrome Suspected panic attack Date of Service: Aug 30, 2024 Billing Provider: ELIOT MILLARD MD Common Visit Codes: 49380-RHR/OBS DISCH DAY >30min KIRILL JAMA Aug 30, 2024 13:07 ELIOT MILLARD MD Aug 30, 2024 17:35
--- NOTE | 2024-08-30 13:32 | DVHINCON2 ---
JACY FUENTES [facility] 08/30/24 1332: Date Seen: Aug 30, 2024 Referring Physician MD [place] resident Reason for Consultation Chest pain History of Present Illness This is a 64-year-old female patient who presents to the emergency room with chief complaint of chest pain. She reports that the chest pain began on the day of admission at approximately 6:00 p.m. while she was coloring. She reports that she had just gotten some bad news from her daughter and shortly thereafter began experiencing the chest pain. She describes it as provoked, intermittent, pressure-like in nature, mid sternal and without radiation. She describes associated dizziness. Initial twelve lead electrocardiogram reveals normal sinus rhythm without any significant ST segment changes and artifact in almost every lead (EKG machine reading rhythm as acute LA). Troponin levels have been negative. Significant past medical history includes aortic valve stenosis, hypertension, dyslipidemia, type 2 diabetes mellitus, TIA, narcolepsy, cataplexy, gastritis, ulcerative colitis, obstructive sleep apnea with CPAP use at night, and morbid obesity. Of note, the patient was seen at this facility and underwent a coronary angiogram on 03/09/2024 which revealed normal coronary arteries without significant atherosclerotic plaquing, thus no catheter based intervention was needed. Past Medical History Past medical history reviewed. No other significant than mentioned above. Past Surgical History Open reduction internal fixation right trimalleolar ankle fracture Back surgery Family History: Colon cancer G8 MOTHER, Depression G8 MOTHER, Diabetes mellitus G8 MOTHER, G8 BROTHER Family history: Diabetes mellitus G8 MOTHER, (mother) G8 BROTHER (older brother) Family history: Hypertension G8 BROTHER (brothers) Ischemic heart disease G8 MOTHER, Prostate carcinoma G8 FATHER, Family History Family history reviewed. Social History Denies the use of tobacco, alcohol or illicit drugs. Allergies: Coded Allergies: Sulfa Drugs (Verified Allergy, Mild, rash, 08/13/24) Indomethacin (Verified Adverse Reaction, Mild, migraine, 08/13/24) Home Meds Active Scripts Gabapentin (Gabapentin) 300 Mg Cap, 300 MG PO TID for 30 Days, #90 CAP 3 Refills Prov:SETH TAO DO 08/16/24 Docusate Sodium (Docusate Sodium) 100 Mg Cap, 100 MG PO BIDPRN PRN for 15 Days, #15 CAP Prov:MOUNIKA TILLMAN MD 04/20/24 Fluticasone Propionate (Nasal) (Fluticasone Propionate) 50 Mcg/Act Spr, 50 MCG EACHNOSTRI Q12HR for 30 Days, #2 SPRAY Prov:MOUNIKA TILLMAN MD 04/17/24 Insulin Regular (Human) (Novolin R Flexpen) 100 Unit/Ml Inj, 15 UNIT IJ TID for 28 Days, #100 INJ 15 units before meals, cheack blood sugar 2 hours after meal and add sliding scale Prov:MOUNIKA TILLMAN MD 04/17/24 Insulin Glargine (Lantus Solostar) 100 Unit/Ml Inj, 90 UNITS SC DAILY for 28 Days, #30 INJ Prov:MOUNIKA TILLMAN MD 04/17/24 Reported Medications Mesalamine (Canasa) 1,000 Mg Sup, 400 MG RE BID, SUPP 08/28/24 Metoprolol Tartrate (Metoprolol Tartrate) 25 Mg Tab, 25 MG PO DAILY for 30 Days, MG 08/28/24 Semaglutide (Ozempic) 2 Mg/3 Ml Inj, 2 MG SC, INJ 08/13/24 Metoprolol Tartrate (Metoprolol Tartrate) 25 Mg Tab, 1 TAB PO BID, #180 TAB 1 Refill 08/13/24 Mesalamine (Mesalamine Dr) 400 Mg Cap, 400 MG PO, CAP 08/13/24 Duloxetine Hcl (Cymbalta) 60 Mg Cap, 1 CAP PO DAILY, #90 CAP 3 Refills 08/13/24 Ondansetron HCl (Ondansetron) 4 Mg Tab, 4 MG PO DAILY PRN for NAUSEA 07/15/23 Pitolisant Hydrochloride (Wakix) 17.8 Mg Tab, 2 TAB PO DAILY for NARCOLEPSY for 90 Days, #180 11/02/21 Lisinopril (Lisinopril) 10 Mg Tab, 10 MG PO DAILY for 30 Days, MG 07/26/16 Home Meds Home medications reviewed. Current Medications Current Medications Medications (Trade) Dose Ordered Sig/Feng Route PRN Reason Start Time Stop Time Status Last Admin Mupirocin (Bactroban 2% Ointment) 1 applic BID EACHNOSTRI 08/29/24 14:00 09/03/24 13:59 08/30/24 10:48 Lorazepam (Ativan Tablet) 0.5 mg Q8HP PRN PO ANXIETY 08/29/24 22:30 08/29/24 22:35 DC Lorazepam (Ativan Tablet) 0.5 mg Q8HP PRN PO ANXIETY 08/29/24 22:45 08/29/24 22:50 Review of Systems Constitutional: No symptom reported Ears, Nose, & Throat: No symptom reported Eyes: No symptom reported Neurological: No symptoms reported Pulmonary/Respiratory: No symptoms reported Cardiovascular: Chest pain Gastrointestinal: No symptom reported Genitourinary: No symptom reported Musculoskeletal: No symptom reported Skin: No symptom reported Psychiatric: No symptom reported Endocrine: No symptom reported Hematologic/Lymphatic: No symptom reported Vital Signs Vital Signs Date Time Temp Pulse Resp B/P (MAP) Pulse Ox O2 Delivery O2 Flow Rate FiO2 08/30/24 09:00 97.5 73 20 103/58 (73) 97 97.5 08/30/24 08:00 Nasal Cannula* 3 32 Physical Exam General Appearance: Cooperative. Morbidly obese Pulmonary/Respiratory: Clear, bilateral breaths sounds. Cardiovascular/Chest: Regular rate and rhythm. Systolic murmur Peripheral Pulses: 2+ Radial (R). 2+ Radial (L). 2+ Pedal (R). 2+ Pedal (L) Abdominal Exam: Normal bowel sounds. Ankle Exam: Negative ankle edema Lower extremities: Negative lower extremity edema Neuro/Mental Status: A/OX4, coherent. Thoughts/Psych: Normal thought pattern. Appropriate mood and affect. Good judgment and insight. Appearance: No acute distress. Skin Exam: Normal inspection. Normal color. Warm and dry. Labs/Diagnostic Data Labs Test 08/30/24 11:25 08/30/24 08:29 08/29/24 13:45 08/29/24 05:44 Range/Units POC Glucose 175 H 70-106 mg/dl Sodium Level 139 136-145 mmol/L Potassium Level 4.2 3.5-5.1 mmol/L Chloride Level 106 98-107 mmol/L Carbon Dioxide Level 28 20-31 mmol/L Anion Gap 5 5-15 Blood Urea Nitrogen 11 9-23 mg/dL Creatinine 0.69 0.550-1.02 mg/dL Glomerular Filtration Rate Calc 96 >90 mL/min BUN/Creatinine Ratio 15.9 10.0-20.0 Serum Glucose 165 H 74-106 mg/dL Calcium Level 9.4 8.7-10.4 mg/dL Magnesium Level 1.7 1.6-2.6 mg/dL Urine Color Light-yellow Yellow Urine Clarity Clear Clear Urine pH 5.0 5.0-9.0 Urine Specific [place] 1.010 1.001-1.035 Urine Protein Negative Negative Urine Ketones Negative Negative Urine Blood Negative Negative /uL Urine Nitrite Negative Negative Urine Bilirubin Negative Negative Urine Urobilinogen Normal Negative mg/dL Urine Leukocyte Esterase Negative Negative /uL Urine RBC <1 0 - 4 /hpf Urine Microscopic WBC 2 0-5 /HPF Urine Squamous Epithelial Cells Few <5 /hpf Urine Bacteria Few H None Seen /hpf Urine Glucose Normal Normal mg/dL Urine Opiates Screen Neg NEGATIVE Urine Fentanyl Screen Neg NEGATIVE Urine Barbiturates Screen Neg NEGATIVE Urine Phencyclidine Screen Neg NEGATIVE Urine Amphetamines Screen Neg NEGATIVE Urine Benzodiazepines Screen Neg NEGATIVE Urine Cocaine Screen Neg NEGATIVE Urine Cannabinoids Screen Neg NEGATIVE Troponin I High Sensitivity 3 L </=34 ng/L Test 08/28/24 08:05 08/28/24 03:40 08/27/24 21:35 08/27/24 20:45 Range/Units White Blood Count 7.5 4.4-10.8 10^3/uL Red Blood Count 5.14 4.0-5.20 10^6/uL Hemoglobin 14.0 12.2-16.2 g/dL Hematocrit 43.0 36.0-46.0 % Mean Corpuscular Volume 83.7 80.0-100.0 fL Mean Corpuscular Hemoglobin 27.3 L 28.0-32.0 pg Mean Corpuscular Hemoglobin Concent 32.6 32.0-36.0 g/dL Red Cell Distribution Width 17.5 H 11.8-14.3 % Platelet Count 220 140-450 10^3/uL Mean Platelet Volume 8.4 6.9-10.8 fL Neutrophils (%) (Auto) 59.3 37.0-80.0 % Lymphocytes (%) (Auto) 24.4 10.0-50.0 % Monocytes (%) (Auto) 7.9 0.0-12.0 % Eosinophils (%) (Auto) 7.7 H 0.0-7.0 % Basophils (%) (Auto) 0.7 0.0-2.0 % Neutrophils # (Auto) 4.4 1.6-8.6 10 ^3/uL Lymphocytes # (Auto) 1.8 0.4-5.4 10 ^3/uL Monocytes # (Auto) 0.6 0-1.3 10 ^3/uL Eosinophils # (Auto) 0.6 0-0.8 10 ^3/uL Basophils # (Auto) 0.1 0-0.2 10 ^3/uL Nucleated Red Blood Cells 0.0 % Influenza Type A Antigen Negative Negative Influenza Type B Antigen Negative Negative SARS-CoV-2 Antigen (Rapid) Negative NEGATIVE Triglycerides Level 232 H < 150 mg/dL Cholesterol Level 137 < 200 mg/dL LDL Cholesterol 78 < 100 mg/dL HDL Cholesterol 41 40-59 mg/dL Total Bilirubin 0.4 0.2-1.0 mg/dL Aspartate Amino Transferase (AST) 17 13-40 U/L Alanine Aminotransferase (ALT) 17 7-40 U/L Alkaline Phosphatase 71 46-116 U/L B-Type Natriuretic Peptide 18.74 0-100 pg/mL Total Protein 6.8 5.7-8.2 g/dL Albumin 4.4 3.2-4.8 g/dL Microbiology Date/Time Source Procedure Growth Status 08/28/24 17:45 Nose MRSA Screen - Final Methicillin Resistant S.aureus Complete Assessment Noncardiac chest pain Moderate aortic valve stenosis Hypertension Dyslipidemia Type 2 diabetes mellitus, uncontrolled (Hgb A1c 8.1%) History of TIA Anxiety Narcolepsy Cataplexy Obstructive sleep apnea with CPAP use at night Morbid obesity Plan/Recommendation We will continue with the following plan/recommendations (Dr. French): Case discussed with . Transthoracic echocardiogram from 08/13/2024 reveals EF 65% with moderate aortic stenosis. Given the patient's clinical presentation, unremarkable twelve lead electrocardiogram, and negative troponin level, doubt ACS. The patient has been seen at this facility multiple times for the exact same reason. The patient was seen at this facility and underwent a coronary angiogram on 03/09/2024 which revealed normal coronary arteries without significant atherosclerotic plaquing, thus no catheter based intervention was needed. There is no further inpatient cardiac workup indicated at this time. The patient will need to follow up with Cardiology in the outpatient setting regarding aortic stenosis. Thank you for allowing us to care for this patient. Please call with any questions or concerns. Critical care time spent: 44 minutes This medical document was created using an electronic medical record system with voice recognition software and computerized dictation system. Although this document has been carefully reviewed, there might still be some phonetic and typographical errors. Occasional wrong-word or ``sound-alike substitutions may have occurred due to the inherent limitations of voice recognition software. These areas are purely typographical due to imperfections of the software programs and do not reflect any compromise in the patient's medical care. Please read the chart carefully and recognize, using context, where these substitutions have occurred. Plan discussed with: Patient NYHA Physical activity limitations: NA Date of Service: Aug 30, 2024 Billing Provider: JACY FUENTES Cardiology Common Codes: 46264-HAOZYAP INP/OBS CARE (High) Cardiology Consultation Codes: [id number] CONSULT <45MIN HUANG FRENCH MD 08/31/24 0834: Family History: Colon cancer G8 MOTHER, Depression G8 MOTHER, Diabetes mellitus G8 MOTHER, G8 BROTHER Family history: Diabetes mellitus G8 MOTHER, (mother) G8 BROTHER (older brother) Family history: Hypertension G8 BROTHER (brothers) Ischemic heart disease G8 MOTHER, Prostate carcinoma G8 FATHER, Allergies: Coded Allergies: Sulfa Drugs (Verified Allergy, Mild, rash, 08/13/24) Indomethacin (Verified Adverse Reaction, Mild, migraine, 08/13/24) Home Meds Active Scripts Gabapentin (Gabapentin) 300 Mg Cap, 300 MG PO TID for 30 Days, #90 CAP 3 Refills Prov:SETH TAO DO 08/16/24 Docusate Sodium (Docusate Sodium) 100 Mg Cap, 100 MG PO BIDPRN PRN for 15 Days, #15 CAP Prov:MOUNIKA TILLMAN MD 04/20/24 Fluticasone Propionate (Nasal) (Fluticasone Propionate) 50 Mcg/Act Spr, 50 MCG EACHNOSTRI Q12HR for 30 Days, #2 SPRAY Prov:MOUNIKA TILLMAN MD 04/17/24 Insulin Regular (Human) (Novolin R Flexpen) 100 Unit/Ml Inj, 15 UNIT IJ TID for 28 Days, #100 INJ 15 units before meals, cheack blood sugar 2 hours after meal and add sliding scale Prov:MOUNIKA TILLMAN MD 10/25/24 Insulin Glargine (Lantus Solostar) 100 Unit/Ml Inj, 90 UNITS SC DAILY for 28 Days, #30 INJ Prov:MOUNIKA TILLMAN MD 04/17/24 Reported Medications Mesalamine (Canasa) 1,000 Mg Sup, 400 MG RE BID, SUPP 08/28/24 Metoprolol Tartrate (Metoprolol Tartrate) 25 Mg Tab, 25 MG PO DAILY for 30 Days, MG 08/28/24 Semaglutide (Ozempic) 2 Mg/3 Ml Inj, 2 MG SC, INJ 08/13/24 Metoprolol Tartrate (Metoprolol Tartrate) 25 Mg Tab, 1 TAB PO BID, #180 TAB 1 Refill 08/13/24 Mesalamine (Mesalamine Dr) 400 Mg Cap, 400 MG PO, CAP 08/13/24 Duloxetine Hcl (Cymbalta) 60 Mg Cap, 1 CAP PO DAILY, #90 CAP 3 Refills 08/13/24 Ondansetron HCl (Ondansetron) 4 Mg Tab, 4 MG PO DAILY PRN for NAUSEA 07/15/23 Pitolisant Hydrochloride (Wakix) 17.8 Mg Tab, 2 TAB PO DAILY for NARCOLEPSY for 90 Days, #180 11/02/21 Lisinopril (Lisinopril) 10 Mg Tab, 10 MG PO DAILY for 30 Days, MG 07/26/16 Plan/Recommendation pt seen with CLINICAL SECRETARY and agree with management plan formulated together cardiology has been consulted numerous times and we have stated this is non cardiac chest pain numerous times please consider alternative considerations rather than calling cardiology for consult first JACY FUENTES Aug 30, 2024 13:32 HUANG FRENCH MD Aug 31, 2024 08:34
[2024-08-30 14:37] VITALS: BP 110/68; PULSE 75; TEMP 36.4
== END 2024-08-30 15:50 | disposition home or self-care (01) | DRG 313 ==
LOC: EDBD 20:12 → ER 20:12 → OVERFLOW 08-28 01:58 → ER 08-28 02:03 → EAST 08-28 14:55
PROVIDERS: ADMIT Student in an Organized Health Care Education/Training Program; ATTEND Student in an Organized Health Care Education/Training Program
DX: R07.89 Other chest pain (principal); I50.33 Acute on chronic diastolic (congestive) heart failure; K51.90 Ulcerative colitis, unspecified, without complications; Z68.41 Body mass index [BMI] 40.0-44.9, adult; F41.0 Panic disorder [episodic paroxysmal anxiety]; I11.0 Hypertensive heart disease with heart failure; E11.9 Type 2 diabetes mellitus without complications; E78.5 Hyperlipidemia, unspecified; E66.01 Morbid (severe) obesity due to excess calories; G47.33 Obstructive sleep apnea (adult) (pediatric); G47.411 Narcolepsy with cataplexy; I25.10 Atherosclerotic heart disease of native coronary artery without angina pectoris; F32.A Depression, unspecified; I35.0 Nonrheumatic aortic (valve) stenosis; Z88.2 Allergy status to sulfonamides; Z80.0 Family history of malignant neoplasm of digestive organs; Z81.8 Family history of other mental and behavioral disorders; Z88.3 Allergy status to other anti-infective agents; Z79.4 Long term (current) use of insulin; Z79.899 Other long term (current) drug therapy; Z90.49 Acquired absence of other specified parts of digestive tract; Z98.891 History of uterine scar from previous surgery; Z83.3 Family history of diabetes mellitus; Z86.73 Personal history of transient ischemic attack (TIA), and cerebral infarction without residual deficits; Z82.49 Family history of ischemic heart disease and other diseases of the circulatory system
CPT/HCPCS: 36415; 71045; 80048; 80053; 80061; 80307; 81001; 82962; 83735; 83880; 84484; 85025; 87081; 87426; 87804; 96372; G0378; J1815; J2405

== ENCOUNTER 2024-10-03 13:03 | Inpatient (IN) | payer MEDICARE, BC ==
[~2024-10-03] VITALS: Ht 162.6 cm; Wt 124.0 kg
[~2024-10-03 13:03] MED LIST changes: -CEPH500C PO; -DICY10CA PO; -FLUO-125 PO; -LIDO5DIS21 TOP; +MESA10003 RE; -ZOLP10TA6 PO; -[UNRECOGNIZED DRUG - CODE] PO
--- NOTE | 2024-10-03 13:14 | ED.PDOC ---
HPI Comments 64 year old female presents to the ED with a chief complaint of chest pain onset today (10/03/24) about 1 hour ago. Patient states she was walking when she began experiencing chest pain/discomfort, rates pain 7/10. Patient experienced CVA about 1 month ago, was seen at [facility], transferred to [facility], discharged 1 week ago. She was given Aspirin 324 mg by EMS in route. PMHx CVA-x2, HTN, HLD, DM, CAD. Denies shortness of breath, dizziness, nausea, vomiting, diarrhea, headache, f jackson, chills. No other symptoms or modifying factors present at this time. Time Seen by MD: 13:05 Reviewed Notes: Medications, Allergies Allergies: Coded Allergies: Sulfa Antibiotics (Verified Allergy, Unknown, 09/05/24) Home Meds Reported Medications Lorazepam (Ativan) 0.5 Mg Tab, 2 TAB PO BID PRN for ANXIETY, #30 TAB 09/05/24 Semaglutide (Ozempic) 4 Mg/3 Ml Inj, 4 MG SC, INJ 09/05/24 Insulin Glargine (Lantus) 100 Unit/Ml Inj, 40 UNIT SC BID, INJ 09/05/24 Fjhtukscbdjkg-Olxjpeovxwl-Xrre (Phenobarbital/Hyoscyamine 16.2 mg) 1 Tab Tab, 1 TAB PO TID 09/05/24 Lisinopril (Lisinopril) 10 Mg Tab, 1 TAB PO DAILY 09/05/24 Mesalamine (Mesalamine Dr) 400 Mg Cap, CAP PO 09/05/24 Metoprolol Succinate (Metoprolol Succinate Er) 25 Mg Tab, 1 TAB PO DAILY 09/05/24 Information Source: Patient, Emergency Med Personnel Mode of Arrival: EMS Severity: Moderate Timing: Hours Duration: Since onset Prehospital treatment: Other (aspirin 324 mg) Location: Chest (L) Radiation: No Radiation Quality: Sharp Onset: At Rest Cardiac Risk Factors: Hyperlipidemia, HTN, Diabetes PE Risk Factors: Other (recent CVA) History of: Similar pain in past Modifying Factors: Nothing Past Medical History PAST MEDICAL HISTORY: CAD, CVA (x2), DM, High Lipids, HTN, [place] Surgical History: Denies all surgeries VBA DEVELOPER History: Denies all VBA DEVELOPER Hx Family History Family History: Reviewed,noncontributory to illness Social History Smoker: Non-Smoker Alcohol: Rarely Drugs: Denies Drug Use Lives In: Home Constitutional: denies: chills, diaphoresis, fatigue, fever, malaise, sweats, weakness, others EENTM: denies: blurred vision, double vision, ear bleeding, ear discharge, ear drainage, ear pain, ear ringing, eye pain, eye redness, hearing loss, mouth pain, mouth swelling, nasal discharge, nose bleeding, nose congestion, nose pain, photophobia, tearing, throat pain, throat swelling, voice changes, others Respiratory: denies: cough, hemoptysis, orthopnea, SOB at rest, shortness of breath, SOB with excertion, stridor, wheezing, others Cardiovascular: reports: chest pain; denies: dizzy spells, diaphoresis, Dyspnea on exertion, edema, irregular heart beat, left arm pain, lightheadedness, palpitations, PND, syncope, others Gastrointestinal: denies: abdomen distended, abdominal pain, blood streaked bowels, constipated, diarrhea, dysphagia, difficulty swallowing, hematemesis, melena, nausea, poor appetite, poor fluid intake, rectal bleeding, rectal pain, vomiting, others Genitourinary: denies: abnormal vagina bleeding, burning, dyspareunia, dysuria, flank pain, frequency, hematuria, incontinence, pain, , vagina discharge, urgency, others Neurological: denies: dizziness, fainting, headache, left sided numbness, left sided weakness, numbness, paresthesia, pre-existing deficit, right sided numbness, right sided weakness, seizure, speech problems, tingling, tremors, weakness, others Musculoskeletal: denies: back pain, gout, joint pain, joint swelling, muscle pain, muscle stiffness, neck pain, others Integumetry: denies: bruises, change in color, change in hair/nails, dryness, laceration, lesions, lumps, rash, wounds, others Allergic/Immunocompromised: denies: Difficulty Healing, Frequent Infections, Hives, Itching, others Hematologic/Lymphatic: denies: anemia, blood clots, easy bleeding, easy bruising, swollen glands, others Endocrine: denies: excessive hunger, excessive sweating, excessive thirst, excessive urination, flushing, intolerance to cold, intolerance to heat, unexplained weight gain, unexplained weight loss, others Psychiatric: denies: anxiety, bipolar disorder, depression, hopeless, panic disorder, schizophrenia, sleepless, suicidal, others All Other Systems: Reviewed and Negative Physical Exam General Appearance: Moderate Distress, Normal HEENT: Normal ENT Inspection, Pharynx Normal, TMs Normal Neck: Full Range of Motion, Non-Tender, Normal, Normal Inspection Respiratory: Chest Non-Tender, Lungs Clear, No Accessory Muscle Use, No Resp iratory Distress, Normal Breath Sounds Cardiovascular: No Edema, No JVD, No Murmur, No Gallop, Normal Peripheral Pulses, Regular Rate/Rhythm Breast Exam: Deferred Gastrointestinal: No Organomegaly, Non Tender, No Pulsatile Mass, Normal Bowel Sounds, Soft Genitalia: Deferred Pelvic: Deferred Rectal: Deferred Extremities: No calf tenderness, Normal capillary refill, Normal inspection, Normal range of motion, Non-tender, No pedal edema Musculoskeletal : Apperance: Normal Neurologic: Alert, research affiliate II-XII nml as Tested, No Motor Deficits, Normal Affect, Normal Mood, No Sensory Deficits Cerebellar Function: NOT DONE Reflexes: NOT DONE Skin: Dry, Normal Color, Warm Peripheral Pulses: 3+ Radial (R), 3+ Radial (L) Lymphatic: No Adenopathy Was a procedure done? Was a procedure done?: No CP Differential Dx Differential Diagnosis: A-fib, A-Flutter, Angina, Anxiety / Panic Attack, Atrial Dysrhythmia, Electrolyte Disorder X-Ray, Labs, Meds, VS Vital Signs Date Time Temp Pulse Resp B/P (MAP) Pulse Ox O2 Delivery O2 Flow Rate FiO2 10/03/24 13:42 98.9 82 20 109/71 (84) 94 98.9 10/03/24 13:10 73 Lab Test 10/03/24 13:25 Range/Units White Blood Count 7.5 4.4-10.8 10^3/uL Red Blood Count 4.87 4.0-5.20 10^6/uL Hemoglobin 13.8 12.2-16.2 g/dL Hematocrit 41.4 36.0-46.0 % Mean Corpuscular Volume 84.9 80.0-100.0 fL Mean Corpuscular Hemoglobin 28.3 28.0-32.0 pg Mean Corpuscular Hemoglobin Concent 33.3 32.0-36.0 g/dL Red Cell Distribution Width 15.6 H 11.8-14.3 % Platelet Count 273 140-450 10^3/uL Mean Platelet Volume 8.9 6.9-10.8 fL Neutrophils (%) (Auto) 61.5 37.0-80.0 % Lymphocytes (%) (Auto) 27.0 10.0-50.0 % Monocytes (%) (Auto) 7.8 0.0-12.0 % Eosinophils (%) (Auto) 3.0 0.0-7.0 % Basophils (%) (Auto) 0.7 0.0-2.0 % Neutrophils # (Auto) 4.6 1.6-8.6 10 ^3/uL Lymphocytes # (Auto) 2.0 0.4-5.4 10 ^3/uL Monocytes # (Auto) 0.6 0-1.3 10 ^3/uL Eosinophils # (Auto) 0.2 0-0.8 10 ^3/uL Basophils # (Auto) 0.1 0-0.2 10 ^3/uL Nucleated Red Blood Cells 0.1 % Sodium Level 136 136-145 mmol/L Potassium Level 4.3 3.5-5.1 mmol/L Chloride Level 104 98-107 mmol/L Carbon Dioxide Level 23 20-31 mmol/L Anion Gap 9 5-15 Blood Urea Nitrogen 18 9-23 mg/dL Creatinine 0.65 0.550-1.02 mg/dL Glomerular Filtration Rate Calc 98 >90 mL/min BUN/Creatinine Ratio 27.7 H 10.0-20.0 Serum Glucose 109 H 74-106 mg/dL Calcium Level 10.4 8.7-10.4 mg/dL Troponin I High Sensitivity < 3 L </=34 ng/L Patient alert. Complaining of chest pain. Cardiac marker within normal limits. Vitals stable. EKG reviewed does not show any acute process. WBC within normal limits. Hemoglobin within normal limits. Was given morphine. Was given nitro. Continues to have chest pain. Reviewed her visit. She just recently discharged from [facility]. Explained to the patient. Continue cardiac monitoring. Time of 1ST Reevaluation: 13:35 Reevaluation 1ST: Unchanged Patient Education/Counseling: Diagnosis, Treatment, Prognosis Family Education/Counseling: No Family Present Departure 1 Departure Time of Disposition: 14:32 Impression: Primary Impression: Chest pain of unknown etiology Disposition: ADMITTED INPATIENT Admit to: Med Surg Condition: Guarded Critical Care Note Critical Care Time?: No Stability Stability form required: No Heart Score Heart Score: Heart Score Response (Comments) Value History Slightly Suspicious 0 EKG Normal 0 Age >65 2 Risk Factors >3 or Hx ASHD 2 Troponin Normal limit 0 Total 4 I personally scribed for DAREN SIDDIQUI MD ([email or web address]) on 10/03/24 at 13:13. Electronically submitted by Nhi Perez ([email or web address]). DAREN SIDDIQUI MD Oct 03, 2024 13:13
[2024-10-03 13:56] LABS: Chloride 104 mmol/L (98-107); Potassium 4.3 mmol/L (3.5-5.1); Sodium 136 mmol/L (136-145)
[2024-10-03 13:57] LABS: Anion Gap 9 (5-15); Calcium 10.4 mg/dL (8.7-10.4); Carbon Dioxide 23 mmol/L (20-31)
[2024-10-03 14:02] LABS: BUN/Creatinine Ratio 27.7 (10.0-20.0); Blood Urea Nitrogen 18 mg/dL (9-23)
[2024-10-03 14:08] LABS: Glucose 109 mg/dL (74-106)
[2024-10-03 14:19] LABS: Basophils # (auto) 0.1 10 ^3/uL (0-0.2); Basophils % (auto) 0.7 % (0.0-2.0); Eosinophils # (auto) 0.2 10 ^3/uL (0-0.8); Hematocrit 41.4 % (36.0-46.0); Hemoglobin 13.8 g/dL (12.2-16.2); Mean Corpuscular Hemoglobin 28.3 pg (28.0-32.0); Mean Corpuscular Hgb Conc. 33.3 g/dL (32.0-36.0); Mean Corpuscular Volume 84.9 fL (80.0-100.0); Monocytes # (auto) 0.6 10 ^3/uL (0-1.3); Monocytes % (auto) 7.8 % (0.0-12.0); Neutrophils # (auto) 4.6 10 ^3/uL (1.6-8.6); Neutrophils % (auto) 61.5 % (37.0-80.0); Nucleated Red Blood Cells % 0.1 %; Platelet Count (auto) 273 10^3/uL (140-450); Red Blood Cells 4.87 10^6/uL (4.0-5.20); Red Cell Distribution Width 15.6 % (11.8-14.3); White Blood Cell 7.5 10^3/uL (4.4-10.8)
[2024-10-03 15:40] VITALS: PULSE 70; RESP 16; O2SAT 96
[2024-10-03] MEDS: ONDANSETRON HCL 4 MG/2 ML VIAL IV ONE (16:15)
[2024-10-03] MEDS: MORPHINE SULFATE INJ 2 MG/ml SYRG IV ONE (16:16)
[2024-10-03] MEDS: NITROGLYCERIN 0.4 MG SL TAB SL ONE (16:16)
[2024-10-03] MEDS ORDERED: DEXTROSE (50%) 50ML SYRG IV PRN (19:15)
[2024-10-03] MEDS ORDERED: ACETAMINOPHEN 325 MG TAB PO PRN (19:15)
[2024-10-03 20:05] LABS: Urine Amorphous Crystal FEW /hpf (None Seen); Urine Bacteria FEW /hpf (None Seen); Urine Blood Negative /uL (Negative); Urine Clarity Ex.Turbid (Clear); Urine Color Yellow (Yellow); Urine Protein, UAD TRACE (Negative); Urine Specific Gravity 1.025 (1.001-1.035); Urine Squamous Epithelial Cell FEW /hpf (<5); Urine Urobilinogen Normal (Negative); Urine WBC 248 /HPF (0-5); Urine WBC Clumps PRESENT /hpf (None Seen)
[2024-10-03] MEDS: ACCU-CHEK COMFORT CURVE STRIP VI SCH (22:52)
[2024-10-03] MEDS: InsuLIN REG 1unit/0.01ml Soln (100units/ml) SC SCH (22:59)
[2024-10-03] MEDS: ATORVASTATIN 20 MG TAB PO SCH (23:00)
--- NOTE | 2024-10-03 23:46 | ECG ---
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
[2024-10-04] MEDS: MORPHINE SULFATE INJ 2 MG/ml SYRG IV PRN (00:15)
[2024-10-04] MEDS: ONDANSETRON HCL 4 MG/2 ML VIAL IV PRN (02:27)
--- NOTE | 2024-10-04 03:02 | DVHHP2 ---
History of Present Illness Reason for Visit: Chest pain History of Present Illness 64-year-old female presents for evaluation of chest pain. Patient endorses a one day history of substernal pressure-like nonradiating chest pain with associated nausea. No fever or chills. No GI or symptoms. Past Medical History CAD, CVA, dyslipidemia, hypertension, mi, diabetes mellitus Past Surgical History Denies Family History Noncontributory Smoke: No ALCOHOL: occassional Drugs: None Lives: with Family Review of Systems Review of Systems Review of systems are currently negative otherwise addressed in HPI. Allergies: Coded Allergies: Sulfa Antibiotics (Verified Allergy, Unknown, 09/05/24) Medications Current Medications Medications Dose Ordered Sig/Feng Route Start Time Stop Time Status Last Admin Dose Admin Atorvastatin Calcium 40 mg HS PO 10/03/24 22:00 Metoprolol Succinate 25 mg DAILY PO 10/04/24 10:00 Lisinopril 10 mg DAILY PO 10/04/24 10:00 Aspirin 81 mg DAILY PO 10/04/24 10:00 Diagnostic Test (Pha) 1 strip ACHS 10/03/24 22:00 10/03/24 22:52 1 STRIP Insulin Human Regular ACHS SC 10/03/24 22:00 Dextrose 50 ml UD PRN IV 10/03/24 19:15 Ondansetron HCl 4 mg Q4HP PRN IV 10/03/24 19:15 10/04/24 02:27 4 MG Enoxaparin Sodium 40 mg DAILY SC 10/04/24 10:00 Acetaminophen 650 mg Q6HP PRN PO 10/03/24 19:15 Nitroglycerin 0.4 mg Q5MINP PRN SL 10/03/24 19:15 Morphine Sulfate 2 mg Q30M PRN IV 10/03/24 19:15 10/04/24 00:15 2 MG Nitrofurantoin Macrocrystals 100 mg BID PO 10/04/24 10:00 Exam Vital Signs Vital Signs Date Time Temp Pulse Resp B/P (MAP) Pulse Ox O2 Delivery O2 Flow Rate FiO2 10/04/24 01:04 98.5 78 16 123/58 (79) 94 98.5 10/03/24 15:40 Nasal Cannula* 2 28 Exam Gen: 64-year-old female no apparent distress, morbidly obese Skin: Warm, dry, normal color and texture, no rash. HEENT: Normocephalic atraumatic, mucous membranes moist and pink. Neck: Cervical and supraclavicular nodes normal without enlargement, trachea is midline, thyroid gland is normal without masses. Pulmonary: Clear to auscultation and percussion bilaterally. Cardiac: Regular rate and rhythm. No murmur Abdomen: Soft, nontender, nondistended, bowel sounds present all 4 quadrants, no guarding, no rigidity, no organomegaly. Extremities: No cyanosis, clubbing, no edema Neuro: Cranial nerves II through XII grossly intact, normal affect and speech, no focal motor deficits. Labs/Xrays RING PHYSICIAN: JUSTIN ONTIVEROS CARBON ROD INSERTER PROCEDURE(s): ECIDC - ECHO 2D MODE CARDIAC DOP REASON: acute cva ORDER NUMBER(s): [id number], ACCESSION NUMBER(s): [id number] APPROVED REPORT EXAM: Two-dimensional and M-mode echocardiogram with Doppler and color Doppler. Blood Pressure: 112/60 mmHg INDICATION CVA/TIA: RISK FACTORS Obesity: Height: 5'6, Weight: 260 DIMENSIONS LVDd 3.8 (3.8-5.7cm) LA (2D) 4.0 (1.9-4.0cm) Aortic Root 3.1 (2.0- 3.7cm) LVDs 2.5 (2.5-4.0cm) LA (MM) (1.9-4.0cm) Aortic Cusp Exc 1.0 (1.5- 2.0cm) EF (%) 60.0 (55-70%) Rt. Atrium 3.1 (1.9-4.0cm) Asc. Aorta 3.3 cm IVSd 1.5 (0.7-1.1cm) RV (D) (1.8-2.4cm) PWd 1.1 (0.7-1.1cm) Mitral Valve Mitral Mitral Stenosis E wave 0.88m/s MV Mean GR. mmHg A wave 1.10m/s MV Peak GR. mmHg E/A ratio 0.8 2D MVA cm2 DECEL Time 261ms PRESS 1/2 Time ms Aortic Valve Aortic Valve Aortic Stenosis V1 0.96m/s AO Mean GR. 25mmHg V2 3.32m/s AO Peak GR. 44mmHg LVOT Diameter 2.2 (1.8-2.4cm) Doppler LISA 1.10cm2 AI P 1/2 Time 474.85ms Tricuspid Valve TR Velocity 2.13m/s RVSP 21mmHg Other Information Quality : Technically Limited Rhythm : Technically limited study due to body habitus.patient position. Conclusion MILD LVH AND MILD LV DIASTOLIC DYSFUNCTION LV EJECTION IS 65% POSTERIOR MV CALCIFIED AORTIC VALVE CALCIFIED AND DECREASED OPENING PEAK GRADIENT ACROSS AORTIC VALVE IS 44 MM OF HG AND MEAN GRADIENT IS 25 MM OF HG AORTIC VALVE AREA IS 1.1 CM SQUARE MODERATE DEGREE AORTIC REGURGITATION MODERATE DEGREE AORTIC STENOSIS NO EFFUSION SIGNED BY: VENUS BONNER MD SIGNED DATE/TIME: 09/05/24 1830 Labs Test 10/03/24 22:57 10/03/24 16:31 10/03/24 14:43 10/03/24 13:25 Range/Units POC Glucose 125 H 70-106 mg/dl Urine Color Yellow Yellow Urine Clarity Ex.turbid Clear Urine pH 8.0 5.0-9.0 Urine Specific [place] 1.025 1.001-1.035 Urine Protein Trace H Negative Urine Ketones Negative Negative Urine Blood Negative Negative /uL Urine Nitrite Negative Negative Urine Bilirubin Negative Negative Urine Urobilinogen Normal Negative mg/dL Urine Leukocyte Esterase 3+ Negative /uL Urine RBC 3 0 - 4 /hpf Urine WBC Clumps Present None Seen /hpf Urine Microscopic WBC 248 H 0-5 /HPF Urine Squamous Epithelial Cells Few <5 /hpf Urine Triple Phosphate Crystals Mod None Seen /hpf Urine Amorphous Crystals Few None Seen /hpf Urine Bacteria Few H None Seen /hpf Urine Glucose Normal Normal mg/dL Troponin I High Sensitivity < 3 L </=34 ng/L White Blood Count 7.5 4.4-10.8 10^3/uL Red Blood Count 4.87 4.0-5.20 10^6/uL Hemoglobin 13.8 12.2-16.2 g/dL Hematocrit 41.4 36.0-46.0 % Mean Corpuscular Volume 84.9 80.0-100.0 fL Mean Corpuscular Hemoglobin 28.3 28.0-32.0 pg Mean Corpuscular Hemoglobin Concent 33.3 32.0-36.0 g/dL Red Cell Distribution Width 15.6 H 11.8-14.3 % Platelet Count 273 140-450 10^3/uL Mean Platelet Volume 8.9 6.9-10.8 fL Neutrophils (%) (Auto) 61.5 37.0-80.0 % Lymphocytes (%) (Auto) 27.0 10.0-50.0 % Monocytes (%) (Auto) 7.8 0.0-12.0 % Eosinophils (%) (Auto) 3.0 0.0-7.0 % Basophils (%) (Auto) 0.7 0.0-2.0 % Neutrophils # (Auto) 4.6 1.6-8.6 10 ^3/uL Lymphocytes # (Auto) 2.0 0.4-5.4 10 ^3/uL Monocytes # (Auto) 0.6 0-1.3 10 ^3/uL Eosinophils # (Auto) 0.2 0-0.8 10 ^3/uL Basophils # (Auto) 0.1 0-0.2 10 ^3/uL Nucleated Red Blood Cells 0.1 % Sodium Level 136 136-145 mmol/L Potassium Level 4.3 3.5-5.1 mmol/L Chloride Level 104 98-107 mmol/L Carbon Dioxide Level 23 20-31 mmol/L Anion Gap 9 5-15 Blood Urea Nitrogen 18 9-23 mg/dL Creatinine 0.65 0.550-1.02 mg/dL Glomerular Filtration Rate Calc 98 >90 mL/min BUN/Creatinine Ratio 27.7 H 10.0-20.0 Serum Glucose 109 H 74-106 mg/dL Calcium Level 10.4 8.7-10.4 mg/dL Assessment/Plan Assessment/Plan Assessment Unstable angina Diabetes mellitus Hypertension History of [place] Morbid obesity History of CVA Plan Admit the patient to telemetry to the hospitalist Cardiology consultation ACS protocol Resume home medications Continue treatment per orders. Plan discussed with: Patient My Orders Orders - HUBER REARDON Procedure Category Date Status Time Atorvastatin (Lipitor) PHA 10/03/24 In Process 22:00 Metoprolol Xl PHA 10/04/24 In Process Succinate (Toprol Xl) 10:00 Lisinopril Tablet PHA 10/04/24 In Process (Zestril Tablet) 10:00 Aspirin Tablet PHA 10/04/24 In Process 10:00 Glucose Blood PHA 10/03/24 In Process (Accu-Chek Comfort 22:00 Insulin R (Human) PHA 10/03/24 In Process (Insulin R) 22:00 Dextrose 50% Syringe PHA 10/03/24 In Process 19:15 Admit ADMIT 10/03/24 Transmitted 19:04 Ondansetron Hcl PHA 10/03/24 In Process (Zofran) 19:15 Enoxaparin Sodium PHA 10/04/24 In Process (Lovenox) 10:00 Cardiac DIET 10/04/24 Transmitted Diet-2gna,Lofat,Lochol Breakfast Condition: Fair RAE 10/03/24 In Process 19:04 Acetaminophen Tablet PHA 10/03/24 In Process (Tylenol Tablet) 19:15 Bedrest With Bathroom RAE 10/03/24 In Process Privileg 19:04 Nitroglycerin PHA 10/03/24 In Process Sublingual (Ntrostat 19:15 Morphine Sulfate PHA 10/03/24 In Process Injection 19:15 Stat Ekg For Chest RAE 10/03/24 In Process Pain 19:04 Notify Md Of Changes RAE 10/03/24 In Process From Base 19:04 Explosive Ordnance Disposal Manager For RAE 10/03/24 In Process 24 Hours 19:04 Emergency Dysrhythmia RAE 10/03/24 In Process Protocol 19:04 Rhythm Strips Once RAE 10/03/24 In Process Every Shift 19:04 Oxygen By Nasal RT 10/03/24 Transmitted Cannula 19:04 Nitrofurantoin PHA 10/04/24 In Process Capsule (Macrobid) 10:00 Troponin-I Hs LAB 10/04/24 Verified 02:55 Thyroid Stimulating LAB 10/04/24 Verified Hormone 02:55 Lipid Panel LAB 10/04/24 Verified 02:55 Date of Service: Oct 03, 2024 Billing Provider: HUBER REARDON Common Visit Codes: [id number] INP/OBS CARE (HIGH) HUBER REARDON Oct 04, 2024 03:02
[2024-10-04 03:55] LABS: LDL Cholesterol 69 mg/dL (< 100); Triglycerides 136 mg/dL (< 150)
[2024-10-04 03:57] LABS: Cholesterol 124 mg/dL (< 200)
[2024-10-04] MEDS: NITROGLYCERIN 0.4 MG SL TAB SL PRN (04:24)
[2024-10-04 04:28] LABS: HDL Cholesterol 40 mg/dL (40-59)
--- NOTE | 2024-10-04 08:05 | DVH ---
EXAM: XR Chest, 1 View CLINICAL INDICATION: chest pain TECHNIQUE: Frontal view of the chest. COMPARISON: XY CHEST XRAY 1 VIEW on DOS: 09/05/24 FINDINGS: LUNGS AND PLEURAL SPACES: See below. HEART: Cardiomegaly with mild congestion. MEDIASTINUM: Unremarkable. Normal mediastinal contour. BONES/JOINTS: Unremarkable. No acute fracture. OTHER FINDINGS: . IMPRESSION: Cardiomegaly with mild congestion.
[2024-10-04] MEDS: NITROFURANTOIN 100 mg CAP PO SCH (10:57)
[2024-10-04] MEDS: LISINOPRIL 5 MG TAB PO SCH (10:57)
[2024-10-04] MEDS: ASPirin 81 mg TAB PO SCH (10:58)
[2024-10-04] MEDS: ENOXAPARIN SOD 40 MG/0.4 ML SYRINGE SC SCH (10:58)
[2024-10-04] MEDS: METOPROLOL SUCCINATE XL 50 MG TAB PO SCH (10:58)
--- NOTE | 2024-10-04 12:45 | DVHPN2 ---
Reviewed: Care Plan, H&P, Labs, Medications, Previous Orders, Radiology Changes from previous H/P or p: No Changes Objective Vitals Vital Signs Date Time Temp Pulse Resp B/P (MAP) Pulse Ox O2 Delivery O2 Flow Rate FiO2 10/04/24 11:14 78 16 111/57 10/04/24 01:04 98.5 94 98.5 10/03/24 15:40 Nasal Cannula* 2 28 Medications Current Medications Medications Dose Ordered Sig/Feng Route Start Time Stop Time Status Last Admin Dose Admin Atorvastatin Calcium 40 mg HS PO 10/03/24 22:00 Metoprolol Succinate 25 mg DAILY PO 10/04/24 10:00 10/04/24 10:58 25 MG Lisinopril 10 mg DAILY PO 10/04/24 10:00 10/04/24 10:57 10 MG Aspirin 81 mg DAILY PO 10/04/24 10:00 10/04/24 10:58 81 MG Diagnostic Test (Pha) 1 strip ACHS 10/03/24 22:00 10/04/24 11:50 1 STRIP Insulin Human Regular ACHS SC 10/03/24 22:00 10/04/24 11:51 2 UNITS Dextrose 50 ml UD PRN IV 10/03/24 19:15 Ondansetron HCl 4 mg Q4HP PRN IV 10/03/24 19:15 10/04/24 02:27 4 MG Enoxaparin Sodium 40 mg DAILY SC 10/04/24 10:00 10/04/24 10:58 40 MG Acetaminophen 650 mg Q6HP PRN PO 10/03/24 19:15 Nitroglycerin 0.4 mg Q5MINP PRN SL 10/03/24 19:15 10/04/24 04:39 0.4 MG Morphine Sulfate 2 mg Q30M PRN IV 10/03/24 19:15 10/04/24 11:14 2 MG Nitrofurantoin Macrocrystals 100 mg BID PO 10/04/24 10:00 10/04/24 10:57 100 MG Laboratory Results Laboratory Tests 10/03/24 13:25 Chemistry Test 10/03/24 13:25 Calcium Level 10.4 mg/dL (8.7-10.4) Lipid panel Test 10/04/24 03:05 Cholesterol Level 124 mg/dL (< 200) HDL Cholesterol 40 mg/dL (40-59) Triglycerides Level 136 mg/dL (< 150) HgA1c, TSH Test 10/04/24 03:05 Thyroid Stimulating Hormone (TSH) 0.80 uIU/mL (0.55-4.78) Urinalysis Test 10/03/24 16:31 Urine Color Yellow (Yellow) Urine Clarity Ex.turbid (Clear) Urine pH 8.0 (5.0-9.0) Urine Specific [place] 1.025 (1.001-1.035) Urine Protein Trace (Negative) H Urine Ketones Negative (Negative) Urine Blood Negative /uL (Negative) Urine Nitrite Negative (Negative) Urine Bilirubin Negative (Negative) Urine Urobilinogen Normal mg/dL (Negative) Urine Leukocyte Esterase 3+ /uL (Negative) Urine RBC 3 /hpf (0 - 4) Urine WBC Clumps Present /hpf (None Seen) Urine Microscopic WBC 248 /HPF (0-5) H Urine Squamous Epithelial Cells Few /hpf (<5) Urine Triple Phosphate Crystals Mod /hpf (None Seen) Urine Amorphous Crystals Few /hpf (None Seen) Urine Bacteria Few /hpf (None Seen) H Urine Glucose Normal mg/dL (Normal) Labs and/or images reviewed: Labs reviewed by me, Image(s) reviewed by me Assessment/Plan Assessment/Plan Unstable angina, troponin normal, treatment per ACS protocol, consult for Dr. Olvera Diabetes mellitus insulin sliding scale Hypertension Hypercholesterolemia History of [place] Morbid obesity History of CVA Sepsis secondary to urinary tract infection: Blood cultures urine cultures Acute urinary tract infection: Rocephin Time spent 50 minutes Advanced care planning time 20 minutes Patient is full code Plan discussed with: Patient My Orders Orders - CECILIA BRITO MD Procedure Category Date Status Time Blood Culture DANE 10/04/24 Logged 12:41 Urine Bacterial DANE 10/04/24 Logged Culture 12:41 * Cardiology Consult CONS 10/04/24 Verified 12:42 Date of Service: Oct 04, 2024 Billing Provider: CECILIA BRITO MD Common Visit Codes: [id number] INP/OBS CARE(HIGH) Secondary Visit Codes: [id number] CARE PLAN 30 MINUTES CECILIA BRITO MD Oct 04, 2024 12:45
[2024-10-04] MEDS: cefTRIAXone 1GM/50ML D5W 50 ML IV ONE (13:58)
[2024-10-04] MEDS: ALPRAZolam 0.5 MG TAB PO SCH (14:32)
--- NOTE | 2024-10-04 16:12 | DVHINCON2 ---
Date of service: Oct 04, 2024 History of Present Illness 64 yo F morbidly obese admitted for non cardiac chest pain . she has 2 MRN. she comes in monthly here and has extensive full CV workup as per my previous notes. her trops are -. ecg is SR andn stable Past Medical History reviewed Family History: Colon cancer G8 MOTHER Diabetes mellitus G8 MOTHER FH: heart attack Allergies: Coded Allergies: Sulfa Antibiotics (Verified Allergy, Unknown, 09/05/24) Home Meds Reported Medications Lorazepam (Ativan) 0.5 Mg Tab, 2 TAB PO BID PRN for ANXIETY, #30 TAB 09/05/24 Semaglutide (Ozempic) 4 Mg/3 Ml Inj, 4 MG SC, INJ 09/05/24 Insulin Glargine (Lantus) 100 Unit/Ml Inj, 40 UNIT SC BID, INJ 09/05/24 Titmjeniodejc-Tizzeijqilw-Ambr (Phenobarbital/Hyoscyamine 16.2 mg) 1 Tab Tab, 1 TAB PO TID 09/05/24 Lisinopril (Lisinopril) 10 Mg Tab, 1 TAB PO DAILY 09/05/24 Mesalamine (Mesalamine Dr) 400 Mg Cap, CAP PO 09/05/24 Metoprolol Succinate (Metoprolol Succinate Er) 25 Mg Tab, 1 TAB PO DAILY 09/05/24 Current Medications Current Medications Medications (Trade) Dose Ordered Sig/Feng Route PRN Reason Start Time Stop Time Status Last Admin Atorvastatin Calcium (Lipitor) 40 mg HS PO 10/03/24 22:00 Metoprolol Succinate (Toprol Xl) 25 mg DAILY PO 10/04/24 10:00 10/04/24 10:58 Lisinopril (Zestril Tablet) 10 mg DAILY PO 10/04/24 10:00 10/04/24 10:57 Aspirin 81 mg DAILY PO 10/04/24 10:00 10/04/24 10:58 Diagnostic Test (Pha) (Accu-Chek Comfort Curve T) 1 strip ACHS 10/03/24 22:00 10/04/24 11:50 Insulin Human Regular (InsuLIN R) ACHS SC 10/03/24 22:00 10/04/24 11:51 Dextrose 50 ml UD PRN IV Blood Sugar LESS THAN 60 10/03/24 19:15 Ondansetron HCl (Zofran) 4 mg Q4HP PRN IV NAUSEA / VOMITING 10/03/24 19:15 10/04/24 13:58 Enoxaparin Sodium (Lovenox) 40 mg DAILY SC 10/04/24 10:00 10/04/24 10:58 Acetaminophen (Tylenol Tablet) 650 mg Q6HP PRN PO PAIN SCALE 1-3 OR TEMP>100.4 10/03/24 19:15 Nitroglycerin (Ntrostat Sublingual) 0.4 mg Q5MINP PRN SL FOR CHEST PAIN 10/03/24 19:15 10/04/24 04:39 Morphine Sulfate 2 mg Q30M PRN IV FOR CHEST PAIN 10/03/24 19:15 10/04/24 11:14 Nitrofurantoin Macrocrystals (Macrobid) 100 mg BID PO 10/04/24 10:00 10/04/24 10:57 Ceftriaxone Sodium 50 ml @ 100 mls/hr DAILY@09 IV 10/05/24 09:00 Alprazolam (Xanax Tablet) 1 mg TID PO 10/04/24 14:00 10/04/24 14:32 Review of Systems 10 pt ros otherwise negative Vital Signs Vital Signs Date Time Temp Pulse Resp B/P (MAP) Pulse Ox O2 Delivery O2 Flow Rate FiO2 10/04/24 11:44 75 14 111/56 10/04/24 08:00 97.9 97 97.9 10/03/24 15:40 Nasal Cannula* 2 28 Physical Exam nad s1 s2 rrr ctab soft nt/nd no edema Labs/Diagnostic Data Labs Test 10/04/24 03:05 10/03/24 22:57 10/03/24 16:31 10/03/24 13:25 Range/Units Troponin I High Sensitivity < 3 L </=34 ng/L Triglycerides Level 136 < 150 mg/dL Cholesterol Level 124 < 200 mg/dL LDL Cholesterol 69 < 100 mg/dL HDL Cholesterol 40 40-59 mg/dL Thyroid Stimulating Hormone (TSH) 0.80 0.55-4.78 uIU/mL POC Glucose 125 H 70-106 mg/dl Urine Color Yellow Yellow Urine Clarity Ex.turbid Clear Urine pH 8.0 5.0-9.0 Urine Specific [place] 1.025 1.001-1.035 Urine Protein Trace H Negative Urine Ketones Negative Negative Urine Blood Negative Negative /uL Urine Nitrite Negative Negative Urine Bilirubin Negative Negative Urine Urobilinogen Normal Negative mg/dL Urine Leukocyte Esterase 3+ Negative /uL Urine RBC 3 0 - 4 /hpf Urine WBC Clumps Present None Seen /hpf Urine Microscopic WBC 248 H 0-5 /HPF Urine Squamous Epithelial Cells Few <5 /hpf Urine Triple Phosphate Crystals Mod None Seen /hpf Urine Amorphous Crystals Few None Seen /hpf Urine Bacteria Few H None Seen /hpf Urine Glucose Normal Normal mg/dL White Blood Count 7.5 4.4-10.8 10^3/uL Red Blood Count 4.87 4.0-5.20 10^6/uL Hemoglobin 13.8 12.2-16.2 g/dL Hematocrit 41.4 36.0-46.0 % Mean Corpuscular Volume 84.9 80.0-100.0 fL Mean Corpuscular Hemoglobin 28.3 28.0-32.0 pg Mean Corpuscular Hemoglobin Concent 33.3 32.0-36.0 g/dL Red Cell Distribution Width 15.6 H 11.8-14.3 % Platelet Count 273 140-450 10^3/uL Mean Platelet Volume 8.9 6.9-10.8 fL Neutrophils (%) (Auto) 61.5 37.0-80.0 % Lymphocytes (%) (Auto) 27.0 10.0-50.0 % Monocytes (%) (Auto) 7.8 0.0-12.0 % Eosinophils (%) (Auto) 3.0 0.0-7.0 % Basophils (%) (Auto) 0.7 0.0-2.0 % Neutrophils # (Auto) 4.6 1.6-8.6 10 ^3/uL Lymphocytes # (Auto) 2.0 0.4-5.4 10 ^3/uL Monocytes # (Auto) 0.6 0-1.3 10 ^3/uL Eosinophils # (Auto) 0.2 0-0.8 10 ^3/uL Basophils # (Auto) 0.1 0-0.2 10 ^3/uL Nucleated Red Blood Cells 0.1 % Sodium Level 136 136-145 mmol/L Potassium Level 4.3 3.5-5.1 mmol/L Chloride Level 104 98-107 mmol/L Carbon Dioxide Level 23 20-31 mmol/L Anion Gap 9 5-15 Blood Urea Nitrogen 18 9-23 mg/dL Creatinine 0.65 0.550-1.02 mg/dL Glomerular Filtration Rate Calc 98 >90 mL/min BUN/Creatinine Ratio 27.7 H 10.0-20.0 Serum Glucose 109 H 74-106 mg/dL Calcium Level 10.4 8.7-10.4 mg/dL Assessment non cardiac chest pain sob obesity htn Plan/Recommendation as per recent CV notes, pt had had echo ,stress and LHC in past 6 months negative cath images reviewed anxeity treatment outpt fu will sign off Plan discussed with: Patient HUANG FRENCH MD Oct 04, 2024 16:12
[2024-10-04 18:35] VITALS: BP 100/57; PULSE 72; PULSE 78; RESP 18; TEMP 97.7; O2SAT 94
[2024-10-04 20:00] VITALS: PULSE 95; O2SAT 95
[2024-10-04 21:00] VITALS: BP 107/56; PULSE 76; RESP 17; TEMP 97.7; O2SAT 93
[2024-10-05] VITALS (10 sets, daily range): BP systolic 95–109; BP diastolic 42–72; PULSE 64–93; RESP 15–18; TEMP 97.2–97.9; O2SAT 93–100
--- NOTE | 2024-10-05 08:21 | DVHPN2 ---
Reviewed: Care Plan, H&P, Labs, Medications, Previous Orders, Radiology Changes from previous H/P or p: No Changes Objective Vitals Vital Signs Date Time Temp Pulse Resp B/P (MAP) Pulse Ox O2 Delivery O2 Flow Rate FiO2 10/05/24 05:00 97.2 64 15 103/42 (62) 96 97.2 10/04/24 20:00 Nasal Cannula* 2 28 Intake/Output Intake and Output 10/05/24 07:00 Intake Total 250 ml Balance 250 ml Intake Oral 200 ml IV Total 50 ml # Voids 2 Medications Current Medications Medications Dose Ordered Sig/Feng Route Start Time Stop Time Status Last Admin Dose Admin Atorvastatin Calcium 40 mg HS PO 10/03/24 22:00 10/04/24 21:58 40 MG Metoprolol Succinate 25 mg DAILY PO 10/04/24 10:00 10/04/24 10:58 25 MG Lisinopril 10 mg DAILY PO 10/04/24 10:00 10/04/24 10:57 10 MG Aspirin 81 mg DAILY PO 10/04/24 10:00 10/04/24 10:58 81 MG Diagnostic Test (Pha) 1 strip ACHS 10/03/24 22:00 10/05/24 06:15 1 STRIP Insulin Human Regular ACHS SC 10/03/24 22:00 10/05/24 06:15 2 UNITS Dextrose 50 ml UD PRN IV 10/03/24 19:15 Ondansetron HCl 4 mg Q4HP PRN IV 10/03/24 19:15 10/04/24 13:58 4 MG Enoxaparin Sodium 40 mg DAILY SC 10/04/24 10:00 10/04/24 10:58 40 MG Acetaminophen 650 mg Q6HP PRN PO 10/03/24 19:15 Nitroglycerin 0.4 mg Q5MINP PRN SL 10/03/24 19:15 10/04/24 04:39 0.4 MG Morphine Sulfate 2 mg Q30M PRN IV 10/03/24 19:15 10/04/24 20:51 2 MG Nitrofurantoin Macrocrystals 100 mg BID PO 10/04/24 10:00 10/04/24 21:58 100 MG Ceftriaxone Sodium 50 ml @ 100 mls/hr DAILY@09 IV 10/05/24 09:00 Alprazolam 1 mg TID PO 10/04/24 14:00 10/05/24 06:16 1 MG Laboratory Results Laboratory Tests 10/03/24 13:25 Urinalysis Test 10/03/24 16:31 Urine Color Yellow (Yellow) Urine Clarity Ex.turbid (Clear) Urine pH 8.0 (5.0-9.0) Urine Specific [place] 1.025 (1.001-1.035) Urine Protein Trace (Negative) H Urine Ketones Negative (Negative) Urine Blood Negative /uL (Negative) Urine Nitrite Negative (Negative) Urine Bilirubin Negative (Negative) Urine Urobilinogen Normal mg/dL (Negative) Urine Leukocyte Esterase 3+ /uL (Negative) Urine RBC 3 /hpf (0 - 4) Urine WBC Clumps Present /hpf (None Seen) Urine Microscopic WBC 248 /HPF (0-5) H Urine Squamous Epithelial Cells Few /hpf (<5) Urine Triple Phosphate Crystals Mod /hpf (None Seen) Urine Amorphous Crystals Few /hpf (None Seen) Urine Bacteria Few /hpf (None Seen) H Urine Glucose Normal mg/dL (Normal) Labs and/or images reviewed: Labs reviewed by me, Image(s) reviewed by me Assessment/Plan Assessment/Plan Unstable angina, troponin normal, treatment per ACS protocol, consult for Dr. Olvera appreciated Diabetes mellitus insulin sliding scale Hypertension Hypercholesterolemia History of [place] Morbid obesity History of CVA Sepsis secondary to urinary tract infection: Blood cultures urine cultures Acute urinary tract infection: Rocephin Time spent 50 minutes Patient is full code Plan discussed with: Patient My Orders Orders - CECILIA BRITO MD Procedure Category Date Status Time Blood Culture DANE 10/04/24 In Process 12:41 Urine Bacterial DANE 10/04/24 Logged Culture 12:41 * Cardiology Consult CONS 10/04/24 Transmitted 12:42 Ceftriaxone 1gm/50ml PHA 10/05/24 In Process D5w (Rocephin) 09:00 Alprazolam Tablet PHA 10/04/24 In Process (Xanax Tablet) 14:00 Date of Service: Oct 05, 2024 Billing Provider: CECILIA BRITO MD Common Visit Codes: [id number] INP/OBS CARE(HIGH) CECILIA BRITO MD Oct 05, 2024 08:21
[2024-10-05] MEDS: cefTRIAXone 1GM/50ML D5W 50 ML IV SCH (09:37)
--- NOTE | 2024-10-05 12:43 | DVHPN2 ---
Progress Note Date Seen: Oct 05, 2024 Medical Necessity Reason Pt with a Central, PICC or Fol: No Subjective Patient reports: Feels worse Other Systems: called about chest pain--pt asking for morphin ecg done Objective vital signs Vital Sign Date Time Temp Pulse Resp B/P (MAP) Pulse Ox O2 Delivery O2 Flow Rate FiO2 10/05/24 09:57 70 100/65 10/05/24 09:09 18 10/05/24 09:00 97.8 99 97.8 10/05/24 08:14 Nasal Cannula* 2 28 Total Intake and Output 10/04/24 10/04/24 10/05/24 15:00 23:00 07:00 Intake Total 50 ml 200 ml Balance 50 ml 200 ml medications Current Medications Medications Dose Ordered Sig/Feng Route Start Time Stop Time Status Last Admin Dose Admin Atorvastatin Calcium 40 mg HS PO 10/03/24 22:00 10/04/24 21:58 40 MG Metoprolol Succinate 25 mg DAILY PO 10/04/24 10:00 10/04/24 10:58 25 MG Lisinopril 10 mg DAILY PO 10/04/24 10:00 10/04/24 10:57 10 MG Aspirin 81 mg DAILY PO 10/04/24 10:00 10/05/24 09:56 81 MG Diagnostic Test (Pha) 1 strip ACHS 10/03/24 22:00 10/05/24 11:29 1 STRIP Insulin Human Regular ACHS SC 10/03/24 22:00 10/05/24 11:33 2 UNITS Dextrose 50 ml UD PRN IV 10/03/24 19:15 Ondansetron HCl 4 mg Q4HP PRN IV 10/03/24 19:15 10/04/24 13:58 4 MG Enoxaparin Sodium 40 mg DAILY SC 10/04/24 10:00 10/05/24 09:56 40 MG Acetaminophen 650 mg Q6HP PRN PO 10/03/24 19:15 Nitroglycerin 0.4 mg Q5MINP PRN SL 10/03/24 19:15 10/04/24 04:39 0.4 MG Morphine Sulfate 2 mg Q30M PRN IV 10/03/24 19:15 10/05/24 08:39 2 MG Nitrofurantoin Macrocrystals 100 mg BID PO 10/04/24 10:00 10/05/24 09:56 100 MG Ceftriaxone Sodium 50 ml @ 100 mls/hr DAILY@09 IV 10/05/24 09:00 10/05/24 09:37 100 MLS/HR Alprazolam 1 mg TID PO 10/04/24 14:00 10/05/24 06:16 1 MG Morphine Sulfate 4 mg Q6HPRN PRN IV 10/05/24 08:45 Examination: GENERAL:Abnormal, HEENT:Abnormal, LUNGS:Abnormal, CVS:Abnormal, ABDOMEN:Abnormal laboratory and microbiology Laboratory Tests 10/03/24 13:25 Test 10/03/24 13:25 Range/Units Serum Glucose 109 H 74-106 mg/dL Problem List/Assessment/Plan Problem List/Assessment/Plan non cardiac chest pain obesity htn hl no furhter cv testing needed, no need for nitro pt needs to lose weight asa, statin will sign off Plan discussed with: Patient Date of Service: Oct 05, 2024 Billing Provider: HUANG FRENCH MD Common Visit Codes: NOT BILLABLE HUANG FRENCH MD Oct 05, 2024 12:43
[2024-10-05] MEDS: MORPHINE SULFATE 4 MG/ML SYR/VIAL IV PRN (17:20)
[2024-10-06] VITALS (8 sets, daily range): BP systolic 97–117; BP diastolic 49–74; PULSE 68–87; RESP 16–20; TEMP 97.4–97.8; O2SAT 94–100
--- NOTE | 2024-10-06 07:52 | ECG ---
[facility] Test Date: 2024-10-05 Test Time: 09:02:00 Pat Name: ELVIS CONCEPCION Department: Respiratoy Room: 0204T A Gender: F Pouncer Machine: RAJANI RIVER : 1960 Requested By: CECILIA BRITO Order Number: [id number] Reading MD: Alonzo Aceves Measurements Intervals [place] Rate: 73 P: 30 CO: 161 QRS: -5 QRSD: 86 T: 60 QT: 402 QTc: 443 Interpretive Statements Sinus rhythm Electronically Signed On 10-07-2024 20:33:37 PDT by Alonzo Aceves Please click the below link to view image of tracing.
--- NOTE | 2024-10-06 08:40 | DVHPN2 ---
Reviewed: Care Plan, H&P, Labs, Medications, Previous Orders, Radiology Changes from previous H/P or p: No Changes Objective Vitals Vital Signs Date Time Temp Pulse Resp B/P (MAP) Pulse Ox O2 Delivery O2 Flow Rate FiO2 10/06/24 08:21 97.5 75 16 114/74 (87) 96 97.5 10/05/24 20:00 Nasal Cannula* 2 28 Intake/Output Intake and Output 10/06/24 07:00 Intake Total 2320 ml Balance 2320 ml Intake Oral 2220 ml IV Total 100 ml # Voids 7 # Bowel Movements 1 Medications Current Medications Medications Dose Ordered Sig/Feng Route Start Time Stop Time Status Last Admin Dose Admin Atorvastatin Calcium 40 mg HS PO 10/03/24 22:00 10/05/24 21:06 40 MG Metoprolol Succinate 25 mg DAILY PO 10/04/24 10:00 10/04/24 10:58 25 MG Lisinopril 10 mg DAILY PO 10/04/24 10:00 10/04/24 10:57 10 MG Aspirin 81 mg DAILY PO 10/04/24 10:00 10/05/24 09:56 81 MG Diagnostic Test (Pha) 1 strip ACHS 10/03/24 22:00 10/06/24 06:08 1 STRIP Insulin Human Regular ACHS SC 10/03/24 22:00 10/06/24 06:09 3 UNITS Dextrose 50 ml UD PRN IV 10/03/24 19:15 Ondansetron HCl 4 mg Q4HP PRN IV 10/03/24 19:15 10/04/24 13:58 4 MG Enoxaparin Sodium 40 mg DAILY SC 10/04/24 10:00 10/05/24 09:56 40 MG Acetaminophen 650 mg Q6HP PRN PO 10/03/24 19:15 Nitroglycerin 0.4 mg Q5MINP PRN SL 10/03/24 19:15 10/04/24 04:39 0.4 MG Morphine Sulfate 2 mg Q30M PRN IV 10/03/24 19:15 10/05/24 08:39 2 MG Nitrofurantoin Macrocrystals 100 mg BID PO 10/04/24 10:00 10/05/24 21:06 100 MG Ceftriaxone Sodium 50 ml @ 100 mls/hr DAILY@09 IV 10/05/24 09:00 10/06/24 08:26 100 MLS/HR Alprazolam 1 mg TID PO 10/04/24 14:00 10/05/24 21:06 1 MG Morphine Sulfate 4 mg Q6HPRN PRN IV 10/05/24 08:45 10/06/24 06:16 4 MG Laboratory Results Laboratory Tests 10/03/24 13:25 Urinalysis Test 10/03/24 16:31 Urine Color Yellow (Yellow) Urine Clarity Ex.turbid (Clear) Urine pH 8.0 (5.0-9.0) Urine Specific [place] 1.025 (1.001-1.035) Urine Protein Trace (Negative) H Urine Ketones Negative (Negative) Urine Blood Negative /uL (Negative) Urine Nitrite Negative (Negative) Urine Bilirubin Negative (Negative) Urine Urobilinogen Normal mg/dL (Negative) Urine Leukocyte Esterase 3+ /uL (Negative) Urine RBC 3 /hpf (0 - 4) Urine WBC Clumps Present /hpf (None Seen) Urine Microscopic WBC 248 /HPF (0-5) H Urine Squamous Epithelial Cells Few /hpf (<5) Urine Triple Phosphate Crystals Mod /hpf (None Seen) Urine Amorphous Crystals Few /hpf (None Seen) Urine Bacteria Few /hpf (None Seen) H Urine Glucose Normal mg/dL (Normal) Microbiology Microbiology Date/Time Source Procedure Growth Status 10/04/24 22:00 Nose MRSA Screen - Final Complete 10/04/24 13:17 Blood Blood Culture - Preliminary NO GROWTH AFTER 24 HOURS OF INCUBATION. Resulted Labs and/or images reviewed: Labs reviewed by me, Image(s) reviewed by me Assessment/Plan Assessment/Plan Unstable angina, troponin normal, treatment per ACS protocol, consult for Dr. Olvera appreciated, per Dr. Olvera patient had stress test and left heart catheterization six months ago which was negative and advised no further workup, felt to be noncardiac chest pain, patient is not happy and says she is still getting chest pain and I wants to go one week in our opinion for dialysis otherwise appendicitis chest pain had multiple without Dr. Olvera risk factors colitis on diabetes six normal [facility] [address] 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 Angie altered noncardiac secondary Patient is full code Plan discussed with: Patient My Orders Orders - CECILIA BRITO MD Procedure Category Date Status Time Morphine Sulfate PHA 10/05/24 In Process Injection 08:45 * Cardiology Consult CONS 10/06/24 Verified 08:25 Date of Service: Oct 06, 2024 Billing Provider: CECILIA BRITO MD Common Visit Codes: [id number] INP/OBS CARE(HIGH) CECILIA BRITO MD Oct 06, 2024 08:40
[2024-10-06] MEDS: ALPRAZolam 0.5 MG TAB PO ONE (10:18)
--- NOTE | 2024-10-06 10:45 | DVHINCON2 ---
Date of service: Oct 06, 2024 History of Present Illness HPI Patient is a 64-year-old female who originally presented on October 03, 2024 for chest discomfort. She was seen by Dr. Olvera (geneticist). Primary team is asking for 2nd opinion. Patient has come to our office as outpatient 1 time. Has not gone for follow-up ordered tests required. Since admission, serial high sensitive troponin has been negative and EKG has been nonrevealing. It is of note the patient does have moderate aortic stenosis which was last evaluated in middle of August 2024. Patient did have CVA around a month ago for which meant to higher level of care. Patient has had left heart catheterization in February 2024 which was nonrevealing of any significant coronary disease. Home Meds Active Scripts Gabapentin (Gabapentin) 300 Mg Cap, 300 MG PO TID for 30 Days, #90 CAP 3 Refills Prov:SETH TAO DO 08/16/24 Docusate Sodium (Docusate Sodium) 100 Mg Cap, 100 MG PO BIDPRN PRN for 15 Days, #15 CAP Prov:MOUNIKA TILLMAN MD 04/20/24 Fluticasone Propionate (Nasal) (Fluticasone Propionate) 50 Mcg/Act Spr, 50 MCG EACHNOSTRI Q12HR for 30 Days, #2 SPRAY Prov:MOUNIKA TILLMAN MD 04/17/24 Insulin Regular (Human) (Novolin R Flexpen) 100 Unit/Ml Inj, 15 UNIT IJ TID for 28 Days, #100 INJ 15 units before meals, cheack blood sugar 2 hours after meal and add sliding scale Prov:MOUNIKA TILLMAN MD 04/17/24 Insulin Glargine (Lantus Solostar) 100 Unit/Ml Inj, 90 UNITS SC DAILY for 28 Days, #30 INJ Prov:MOUNIKA TILLMAN MD 04/17/24 Reported Medications Mesalamine (Canasa) 1,000 Mg Sup, 400 MG RE BID, SUPP 08/28/24 Metoprolol Tartrate (Metoprolol Tartrate) 25 Mg Tab, 25 MG PO DAILY for 30 Days, MG 08/28/24 Semaglutide (Ozempic) 2 Mg/3 Ml Inj, 2 MG SC, INJ 08/13/24 Metoprolol Tartrate (Metoprolol Tartrate) 25 Mg Tab, 1 TAB PO BID, #180 TAB 1 Refill 08/13/24 Mesalamine (Mesalamine Dr) 400 Mg Cap, 400 MG PO, CAP 08/13/24 Duloxetine Hcl (Cymbalta) 60 Mg Cap, 1 CAP PO DAILY, #90 CAP 3 Refills 08/13/24 Ondansetron HCl (Ondansetron) 4 Mg Tab, 4 MG PO DAILY PRN for NAUSEA 07/15/23 Pitolisant Hydrochloride (Wakix) 17.8 Mg Tab, 2 TAB PO DAILY for NARCOLEPSY for 90 Days, #180 11/02/21 Lisinopril (Lisinopril) 10 Mg Tab, 10 MG PO DAILY for 30 Days, MG 07/26/16 Past Medical History Others Past medical history includes morbid obesity, status post multiple CVA, hypertension, hyperlipidemia, diabetes mellitus. Patient Family History: Colon cancer G8 MOTHER, Depression G8 MOTHER, Diabetes mellitus G8 MOTHER, G8 BROTHER Family history: Diabetes mellitus G8 MOTHER, (mother) G8 BROTHER (older brother) Family history: Hypertension G8 BROTHER (brothers) Ischemic heart disease G8 MOTHER, Prostate carcinoma G8 FATHER, Alocohol: None Drugs: None Review of Systems Constitutional: No symptom reported All Other Systems Fourteen point review of system was performed. Relevant findings as per above and as per HPI. Otherwise negative H&P Exam Vital Signs Vital Signs Date Time Temp Pulse Resp B/P (MAP) Pulse Ox O2 Delivery O2 Flow Rate FiO2 10/06/24 10:18 114/74 10/06/24 10:17 75 10/06/24 08:21 97.5 16 96 97.5 10/06/24 08:00 Nasal Cannula* 2 28 General Appeara: Well developed, Well nourished Head Exam: Normal inspection Eye Exam: bilateral eye PERRL Mouth: Normal Inspection Pulmonary/Respiratory: Lungs clear Cardiovascular/Chest: Normal inspection, Regular rate, Systolic murmur Peripheral Pulses: 2+ carotid (R), 2+ carotid (L), 2+ femoral (R), 2+ femoral (L), 2+ dorsalis pedis (R), 2+ dorsalis pedis (L), 2+ Radial (R), 2+ Radial (L) Abdominal Exam: Normal bowel sounds, Soft Neuro/Mental St: Alert, Oriented Appearance: Appropriate appearance Eye contact/ Speech: Cooperative Labs/Xrays Labs Test 10/06/24 05:06 10/04/24 03:05 10/03/24 16:31 10/03/24 13:25 Range/Units POC Glucose 172 H 70-106 mg/dl Troponin I High Sensitivity < 3 L </=34 ng/L Triglycerides Level 136 < 150 mg/dL Cholesterol Level 124 < 200 mg/dL LDL Cholesterol 69 < 100 mg/dL HDL Cholesterol 40 40-59 mg/dL Thyroid Stimulating Hormone (TSH) 0.80 0.55-4.78 uIU/mL Urine Color Yellow Yellow Urine Clarity Ex.turbid Clear Urine pH 8.0 5.0-9.0 Urine Specific [place] 1.025 1.001-1.035 Urine Protein Trace H Negative Urine Ketones Negative Negative Urine Blood Negative Negative /uL Urine Nitrite Negative Negative Urine Bilirubin Negative Negative Urine Urobilinogen Normal Negative mg/dL Urine Leukocyte Esterase 3+ Negative /uL Urine RBC 3 0 - 4 /hpf Urine WBC Clumps Present None Seen /hpf Urine Microscopic WBC 248 H 0-5 /HPF Urine Squamous Epithelial Cells Few <5 /hpf Urine Triple Phosphate Crystals Mod None Seen /hpf Urine Amorphous Crystals Few None Seen /hpf Urine Bacteria Few H None Seen /hpf Urine Glucose Normal Normal mg/dL White Blood Count 7.5 4.4-10.8 10^3/uL Red Blood Count 4.87 4.0-5.20 10^6/uL Hemoglobin 13.8 12.2-16.2 g/dL Hematocrit 41.4 36.0-46.0 % Mean Corpuscular Volume 84.9 80.0-100.0 fL Mean Corpuscular Hemoglobin 28.3 28.0-32.0 pg Mean Corpuscular Hemoglobin Concent 33.3 32.0-36.0 g/dL Red Cell Distribution Width 15.6 H 11.8-14.3 % Platelet Count 273 140-450 10^3/uL Mean Platelet Volume 8.9 6.9-10.8 fL Neutrophils (%) (Auto) 61.5 37.0-80.0 % Lymphocytes (%) (Auto) 27.0 10.0-50.0 % Monocytes (%) (Auto) 7.8 0.0-12.0 % Eosinophils (%) (Auto) 3.0 0.0-7.0 % Basophils (%) (Auto) 0.7 0.0-2.0 % Neutrophils # (Auto) 4.6 1.6-8.6 10 ^3/uL Lymphocytes # (Auto) 2.0 0.4-5.4 10 ^3/uL Monocytes # (Auto) 0.6 0-1.3 10 ^3/uL Eosinophils # (Auto) 0.2 0-0.8 10 ^3/uL Basophils # (Auto) 0.1 0-0.2 10 ^3/uL Nucleated Red Blood Cells 0.1 % Sodium Level 136 136-145 mmol/L Potassium Level 4.3 3.5-5.1 mmol/L Chloride Level 104 98-107 mmol/L Carbon Dioxide Level 23 20-31 mmol/L Anion Gap 9 5-15 Blood Urea Nitrogen 18 9-23 mg/dL Creatinine 0.65 0.550-1.02 mg/dL Glomerular Filtration Rate Calc 98 >90 mL/min BUN/Creatinine Ratio 27.7 H 10.0-20.0 Serum Glucose 109 H 74-106 mg/dL Calcium Level 10.4 8.7-10.4 mg/dL Microbiology Date/Time Source Procedure Growth Status 10/04/24 22:00 Nose MRSA Screen - Final Complete 10/04/24 13:17 Blood Blood Culture - Preliminary NO GROWTH AFTER 24 HOURS OF INCUBATION. Resulted Assessment/Plan Plan Patient is a 64-year-old female who originally presented on October 03, 2024 for c hest discomfort. She was seen by Dr. Olvera (geneticist). Primary team is asking for 2nd opinion. Patient has come to our office as outpatient 1 time. Has not gone for follow-up ordered tests required. Since admission, serial high sensitive troponin has been negative and EKG has been nonrevealing. It is of note the patient does have moderate aortic stenosis which was last evaluated in middle of August 2024. Patient did have CVA around a month ago for which meant to higher level of care. Patient has had left heart catheterization in February 2024 which was nonrevealing of any significant coronary disease. Not in acute distress. Morbidly obese. No JVD. Mucosa is pink and wet. Not using accessory muscles of breathing. Lungs are clear to auscultation. Cardiac: Regular, no thrill/gallop. Systolic murmur 3/6 in the base is heard. Abdomen is soft and obese. Bowel sound is positive. There is no gross mass. Extremities do not reveal edema. Dorsalis pedis is 2+ bilateral Past medical history includes morbid obesity, status post multiple CVA, hypertension, hyperlipidemia, diabetes mellitus. Echocardiogram of September 05, 2024 had revealed ejection fraction of 65%, aortic valve area of 1.1 centimeter sq and peak/mean pressure gradient across aortic valve of 44/25 mm Hg. Left heart catheterization of March 09, 2024 has been nonrevealing of any significant coronary disease Troponin (high sensitive): <3 - <3 EKG was sinus rhythm with no specific ST-T changes Patient is a 64-year-old female who presented with atypical chest discomfort. Serial troponin has been negative. EKG has been nonrevealing. Acute coronary syndrome is not considered. Atypical chest pain Cardiac suggestion for management: Managed on telemetry. Follow-up electrolytes and kidney function tests and correct abnormalities Cardiology follow-up as outpatient is advised Further evaluation and management depends on the above and clinical course Thank you for consultation A total of 55 minutes was spent reviewing the patient record, examining the patient, making a diagnostic and therapeutic plan, discussing this plan with medical personnel, following up on diagnostic studies and following the patient for clinical stability excluding any and all procedures. At least 50% of this time was spent in direct, [id number] contact. Thank you for allowing me to participate in this patient's care. Further recommendations will depend on patient's clinical course. Please do not hesitate to contact me if you have any questions or concerns. This medical document was created using electronic medical record system with [employer] computerized dictation system. Although this document has been carefully reviewed, there may still be some phonetic and typographical errors. These areas are purely typographical due to the imperfection of the software programs, and do not reflect any compromise in the patient's medical care. Plan discussed with: Patient, Other (primary team) CHRIS ZABALA MD Oct 06, 2024 10:45
[2024-10-06] MEDS: ALPRAZolam 0.5 MG TAB PO SCH (14:00)
[2024-10-06] MEDS ORDERED: HYDROcodone-ACET 5/325MG TAB PO PRN (20:15)
[2024-10-07 00:30] VITALS: BP 111/54; PULSE 70; RESP 18; TEMP 97.7; O2SAT 97
[2024-10-07 04:39] VITALS: BP 107/70; PULSE 74; RESP 16; TEMP 98; O2SAT 100
[2024-10-07 08:00] VITALS: PULSE 89
[2024-10-07] MEDS ORDERED: TRAM-626 PO (08:40)
[2024-10-07] MEDS ORDERED: LORA-1121 PO (08:40)
[2024-10-07 08:46] VITALS: BP 108/63; PULSE 86; RESP 17; TEMP 97.6; O2SAT 99
[2024-10-07] MEDS ORDERED: CIPR-173 PO (09:05)
--- NOTE | 2024-10-07 09:07 | DVHPN2 ---
Reviewed: Care Plan, H&P, Labs, Medications, Previous Orders, Radiology Changes from previous H/P or p: No Changes Objective Vitals Vital Signs Date Time Temp Pulse Resp B/P (MAP) Pulse Ox O2 Delivery O2 Flow Rate FiO2 10/07/24 08:46 97.6 86 17 108/63 (78) 99 97.6 10/07/24 07:53 Nasal Cannula* 2 28 Intake/Output Intake and Output 10/07/24 07:00 Intake Total 1200 ml Balance 1200 ml Intake Oral 1150 ml IV Total 50 ml # Voids 6 # Bowel Movements 1 Medications Current Medications Medications Dose Ordered Sig/Feng Route Start Time Stop Time Status Last Admin Dose Admin Atorvastatin Calcium 40 mg HS PO 10/03/24 22:00 10/06/24 21:13 40 MG Metoprolol Succinate 25 mg DAILY PO 10/04/24 10:00 10/06/24 10:17 25 MG Lisinopril 10 mg DAILY PO 10/04/24 10:00 10/06/24 10:18 10 MG Aspirin 81 mg DAILY PO 10/04/24 10:00 10/06/24 10:17 81 MG Diagnostic Test (Pha) 1 strip ACHS 10/03/24 22:00 10/07/24 06:27 1 STRIP Insulin Human Regular ACHS SC 10/03/24 22:00 10/07/24 06:27 2 UNITS Dextrose 50 ml UD PRN IV 10/03/24 19:15 Ondansetron HCl 4 mg Q4HP PRN IV 10/03/24 19:15 10/04/24 13:58 4 MG Enoxaparin Sodium 40 mg DAILY SC 10/04/24 10:00 10/06/24 10:17 40 MG Acetaminophen 650 mg Q6HP PRN PO 10/03/24 19:15 Nitroglycerin 0.4 mg Q5MINP PRN SL 10/03/24 19:15 10/04/24 04:39 0.4 MG Morphine Sulfate 2 mg Q30M PRN IV 10/03/24 19:15 10/05/24 08:39 2 MG Nitrofurantoin Macrocrystals 100 mg BID PO 10/04/24 10:00 10/06/24 21:13 100 MG Ceftriaxone Sodium 50 ml @ 100 mls/hr DAILY@09 IV 10/05/24 09:00 10/07/24 08:09 100 MLS/HR Morphine Sulfate 4 mg Q6HPRN PRN IV 10/05/24 08:45 10/07/24 03:54 4 MG Alprazolam 1 mg TID PO 10/06/24 14:00 10/07/24 00:28 1 MG Acetaminophen/ Hydrocodone Bitart 1 tab Q6HPRN PRN PO 10/06/24 20:15 Laboratory Results Laboratory Tests 10/03/24 13:25 Urinalysis Test 10/03/24 16:31 Urine Color Yellow (Yellow) Urine Clarity Ex.turbid (Clear) Urine pH 8.0 (5.0-9.0) Urine Specific [place] 1.025 (1.001-1.035) Urine Protein Trace (Negative) H Urine Ketones Negative (Negative) Urine Blood Negative /uL (Negative) Urine Nitrite Negative (Negative) Urine Bilirubin Negative (Negative) Urine Urobilinogen Normal mg/dL (Negative) Urine Leukocyte Esterase 3+ /uL (Negative) Urine RBC 3 /hpf (0 - 4) Urine WBC Clumps Present /hpf (None Seen) Urine Microscopic WBC 248 /HPF (0-5) H Urine Squamous Epithelial Cells Few /hpf (<5) Urine Triple Phosphate Crystals Mod /hpf (None Seen) Urine Amorphous Crystals Few /hpf (None Seen) Urine Bacteria Few /hpf (None Seen) H Urine Glucose Normal mg/dL (Normal) Microbiology Microbiology Date/Time Source Procedure Growth Status 10/05/24 10:30 Voided Urine Urine Culture - Preliminary Resulted 10/04/24 22:00 Nose MRSA Screen - Final Complete 10/04/24 13:17 Blood Blood Culture - Preliminary NO GROWTH AFTER 48 HOURS OF INCUBATION. Resulted Labs and/or images reviewed: Labs reviewed by me, Image(s) reviewed by me Assessment/Plan Assessment/Plan Noncardiac chest pain seen by Cardiology Dr. Olvera and Cardiology Dr. Silva Uncontrolled Diabetes mellitus insulin sliding scale A1c 7.5 on 09/05/2024 Hypertension Hypercholesterolemia History of DC Morbid obesity History of CVA Sepsis secondary to urinary tract infection: Blood cultures negative, urine cultures negative Acute urinary tract infection: Rocephin, urine cultures negative Time spent 46 minutes REDD Adams at bed side. Patient is full code Plan discussed with: Patient My Orders Orders - CECILIA BRITO MD Procedure Category Date Status Time Consistent DIET 10/06/24 Transmitted Carb([facility])Diabetes Lunch Date of Service: Oct 07, 2024 Billing Provider: CECILIA BRITO MD Common Visit Codes: [id number] INP/OBS CARE(HIGH) CECILIA BRITO MD Oct 07, 2024 09:07
--- NOTE | 2024-10-07 09:11 | DVHDS2 ---
Discharge Summary Date of Admission Oct 03, 2024 at 19:04 Date of Discharge: Oct 07, 2024 Admitting Diagnosis Chest pain Wounds: None Labs/Diagnostic Data: Laboratory Results Test 10/07/24 06:23 10/04/24 03:05 10/03/24 16:31 10/03/24 13:25 POC Glucose 155 mg/dl (70-106) Troponin I High Sensitivity < 3 ng/L (</=34) Triglycerides Level 136 mg/dL (< 150) Cholesterol Level 124 mg/dL (< 200) LDL Cholesterol 69 mg/dL (< 100) HDL Cholesterol 40 mg/dL (40-59) Thyroid Stimulating Hormone (TSH) 0.80 uIU/mL (0.55-4.78) Urine Color Yellow (Yellow) Urine Clarity Ex.turbid (Clear) Urine pH 8.0 (5.0-9.0) Urine Specific [place] 1.025 (1.001-1.035) Urine Protein Trace (Negative) Urine Ketones Negative (Negative) Urine Blood Negative /uL (Negative) Urine Nitrite Negative (Negative) Urine Bilirubin Negative (Negative) Urine Urobilinogen Normal mg/dL (Negative) Urine Leukocyte Esterase 3+ /uL (Negative) Urine RBC 3 /hpf (0 - 4) Urine WBC Clumps Present /hpf (None Seen) Urine Microscopic WBC 248 /HPF (0-5) Urine Squamous Epithelial Cells Few /hpf (<5) Urine Triple Phosphate Crystals Mod /hpf (None Seen) Urine Amorphous Crystals Few /hpf (None Seen) Urine Bacteria Few /hpf (None Seen) Urine Glucose Normal mg/dL (Normal) White Blood Count 7.5 10^3/uL (4.4-10.8) Red Blood Count 4.87 10^6/uL (4.0-5.20) Hemoglobin 13.8 g/dL (12.2-16.2) Hematocrit 41.4 % (36.0-46.0) Mean Corpuscular Volume 84.9 fL (80.0-100.0) Mean Corpuscular Hemoglobin 28.3 pg (28.0-32.0) Mean Corpuscular Hemoglobin Concent 33.3 g/dL (32.0-36.0) Red Cell Distribution Width 15.6 % (11.8-14.3) Platelet Count 273 10^3/uL (140-450) Mean Platelet Volume 8.9 fL (6.9-10.8) Neutrophils (%) (Auto) 61.5 % (37.0-80.0) Lymphocytes (%) (Auto) 27.0 % (10.0-50.0) Monocytes (%) (Auto) 7.8 % (0.0-12.0) Eosinophils (%) (Auto) 3.0 % (0.0-7.0) Basophils (%) (Auto) 0.7 % (0.0-2.0) Neutrophils # (Auto) 4.6 10 ^3/uL (1.6-8.6) Lymphocytes # (Auto) 2.0 10 ^3/uL (0.4-5.4) Monocytes # (Auto) 0.6 10 ^3/uL (0-1.3) Eosinophils # (Auto) 0.2 10 ^3/uL (0-0.8) Basophils # (Auto) 0.1 10 ^3/uL (0-0.2) Nucleated Red Blood Cells 0.1 % Sodium Level 136 mmol/L (136-145) Potassium Level 4.3 mmol/L (3.5-5.1) Chloride Level 104 mmol/L (98-107) Carbon Dioxide Level 23 mmol/L (20-31) Anion Gap 9 (5-15) Blood Urea Nitrogen 18 mg/dL (9-23) Creatinine 0.65 mg/dL (0.550-1.02) Glomerular Filtration Rate Calc 98 mL/min (>90) BUN/Creatinine Ratio 27.7 (10.0-20.0) Serum Glucose 109 mg/dL (74-106) Calcium Level 10.4 mg/dL (8.7-10.4) Other Laboratory Tests 10/03/24 13:25 Brief Hx & Hospital Course: 64-year-old female with a multiple medical problems at frequent admissions history of hypertension hypercholesterolemia AMI history of CVA uncontrolled diabetes came in complaining of chest pain troponin negative x3. Vitals were stable seen by Cardiology Dr. Olvera advised the previous heart catheterization six months ago was normal and no further workup . The patient has requested 2nd opinion from another train conductor seen by train conductor Dr. Silva who also advised that the patient has noncardiac chest pain. Patient has a higher level of anxiety treated with the Xanax. At the time of discharge patient is comfortable stable vital signs discharged home on tramadol for noncardiac chest pain Ativan for anxiety and Cipro for UTI. Consults/Reason for consult Cardiology Dr. Olvera Cardiology Dr. Silva Operations or Procedures None Condition at Discharge: Fair Final Diagnosis/Problems List Noncardiac chest pain seen by Cardiology Dr. Olvera and Cardiology Dr. Silva Uncontrolled Diabetes mellitus insulin sliding scale A1c 7.5 on 09/05/2024 Hypertension Hypercholesterolemia History of MS Morbid obesity History of CVA Sepsis secondary to urinary tract infection: Blood cultures negative, urine cultures negative Acute urinary tract infection: Rocephin, urine cultures negative Discharge Disposition: Home Discharge Instruct/Medications Diet: Cardiac 2g Na,low cholest Activity: Light activity Follow Up/Referral: Follow up with the primary Dr and train conductor Dr. Mathew Resume all previous home meds Medications: Cipro Tramadol Ativan Transmitted to pharmacy 39 (Time taken for discharge summary 39 minutes) Discharge Statement: "Patient was advised to return to the ER or call 911 if any headaches, dizziness, shortness of breath, chest pain, abdominal pain, bleeding, fevers, or worsening of medical condition. Patient was counseled about treatment plan, medications, possible side effects, patientverbalized understanding. All questions were answered to the best of my ability. This discharge took greater then 30 minutes in planning, reviewing documentation, counseling the patient, and discussing with other team members." ASSESSMENT ASSESSMENT Hospital Course Uneventful Assessment Noncardiac chest pain seen by Cardiology Dr. Olvera and Cardiology Dr. Silva Uncontrolled Diabetes mellitus insulin sliding scale A1c 7.5 on 09/05/2024 Hypertension Hypercholesterolemia History of MS Morbid obesity History of CVA Sepsis secondary to urinary tract infection: Blood cultures negative, urine cultures negative Acute urinary tract infection: Rocephin, urine cultures negative Date of Service: Oct 07, 2024 Billing Provider: CECIILA BRITO MD Common Visit Codes: [id number] DISCH DAY >30min CECILIA BRITO MD Oct 07, 2024 09:10
[2024-10-07 10:56] VITALS: BP 114/74; PULSE 75; TEMP 36.4
[2024-10-07 12:51] VITALS: BP 108/55; PULSE 80; RESP 16; TEMP 98; O2SAT 96
== END 2024-10-07 12:45 | disposition home or self-care (01) | DRG 872 ==
LOC: EDBD 13:03 → EDUNIT# 13:03 → ER 13:03 → OVERFLOW 19:04 → EDUNIT# 19:04 → TELE-CENTR 10-04 17:57
PROVIDERS: ADMIT Family Medicine; ATTEND Family Medicine
DX: A41.9 Sepsis, unspecified organism (principal); I25.110 Atherosclerotic heart disease of native coronary artery with unstable angina pectoris; N39.0 Urinary tract infection, site not specified; Z68.41 Body mass index [BMI] 40.0-44.9, adult; I10 Essential (primary) hypertension; E11.9 Type 2 diabetes mellitus without complications; E78.00 Pure hypercholesterolemia, unspecified; I35.0 Nonrheumatic aortic (valve) stenosis; F41.9 Anxiety disorder, unspecified; E66.01 Morbid (severe) obesity due to excess calories; Z86.73 Personal history of transient ischemic attack (TIA), and cerebral infarction without residual deficits; Z88.2 Allergy status to sulfonamides; Z79.4 Long term (current) use of insulin; Z79.899 Other long term (current) drug therapy; Z82.49 Family history of ischemic heart disease and other diseases of the circulatory system; I25.2 Old myocardial infarction; Z83.3 Family history of diabetes mellitus; Z80.0 Family history of malignant neoplasm of digestive organs; Z81.8 Family history of other mental and behavioral disorders
CPT/HCPCS: 36415; 71045; 80048; 80061; 81001; 82962; 84443; 84484; 85025; 87040; 87081; 87086; 93005; 96374; 96375; G0378; J1815; J2405

== ENCOUNTER 2024-10-10 16:18 | Inpatient (IN) | payer MEDICARE, BC ==
[2024-10-09] MEDS: SODIUM CHLORIDE 0.9% 1,000 ML IV ONE (23:32)
[~2024-10-10] VITALS: Ht 170.2 cm; Wt 122.7 kg
[~2024-10-10 16:18] MED LIST changes: +CIPR-173 PO; +LORA-1121 PO; +TRAM-626 PO
--- NOTE | 2024-10-10 16:42 | ED.PDOC ---
HPI (NEURO) HPI Comments 64 y/o F, BIBA, with PMHx of DM, COPD, and CVA presents to the ED for CC of generalized weakness. EMS reports, patient is coming from home where she had a witnessed generalized weakness episode by friends said to be a "stroke" at 1500 today (10/10/24). Per patient's friends, patient had a visible facial drop to her right side and weakness to the left side of her body. EMS states, patient is currently unable to talk following incident and uses hand gestures to communicate. Upon arrival to ED, spoke to telehealth Neuro who will follow up with patient. Time Seen by MD: 16:30 Primary Care Provider: BRIDGETTE Reviewed Notes: Nurses Notes, Health Services Administrator Notes, Medications, Allergies Mode of Arrival: EMS Severity: Moderate Headache Severity: Moderate Timing: Minutes Duration: Since onset Prehospital treatment: None Onset: At rest Circumstances: Spontaneous Symptoms: Weakness Before: Normal During: Awake After: Normal Mentation History of: CVA Modifying factors: Nothing Associated Signs and Symptoms: None Past Medical History PAST MEDICAL HISTORY: CAD, CVA, DM, High Lipids, HTN, NV Surgical History: Denies all surgeries HOSIERY BAGGER History: No Pertinent HOSIERY BAGGER History Family History Family History: Family hx of DM, Family hx of Cancer, Family hx of heart rimma Social History Smoker: Non-Smoker Alcohol: Denies ETOH Use Drugs: Denies Drug Use Lives In: Home Constitutional: reports: weakness; denies: chills, diaphoresis, fatigue, fever, malaise, sweats, others EENTM: denies: blurred vision, double vision, ear bleeding, ear discharge, ear drainage, ear pain, ear ringing, eye pain, eye redness, hearing loss, mouth pain, mouth swelling, nasal discharge, nose bleeding, nose congestion, nose pain, photophobia, tearing, throat pain, throat swelling, voice changes, others Respiratory: denies: cough, hemoptysis, orthopnea, SOB at rest, shortness of breath, SOB with excertion, stridor, wheezing, others Cardiovascular: denies: chest pain, dizzy spells, diaphoresis, Dyspnea on exertion, edema, irregular heart beat, left arm pain, lightheadedness, palpitations, PND, syncope, others Gastrointestinal: denies: abdomen distended, abdominal pain, blood streaked bowels, constipated, diarrhea, dysphagia, difficulty swallowing, hematemesis, melena, nausea, poor appetite, poor fluid intake, rectal bleeding, rectal pain, vomiting, others Genitourinary: denies: abnormal vagina bleeding, burning, dyspareunia, dysuria, flank pain, frequency, hematuria, incontinence, pain, , vagina discharge, urgency, others Neurological: denies: dizziness, fainting, headache, left sided numbness, left sided weakness, numbness, paresthesia, pre-existing deficit, right sided numbness, right sided weakness, seizure, speech problems, tingling, tremors, weakness, others Musculoskeletal: denies: back pain, gout, joint pain, joint swelling, muscle pain, muscle stiffness, neck pain, others Integumetry: denies: bruises, change in color, change in hair/nails, dryness, laceration, lesions, lumps, rash, wounds, others Allergic/Immunocompromised: denies: Difficulty Healing, Frequent Infections, Hives, Itching, others Hematologic/Lymphatic: denies: anemia, blood clots, easy bleeding, easy bruising, swollen glands, others Endocrine: denies: excessive hunger, excessive sweating, excessive thirst, excessive urination, flushing, intolerance to cold, intolerance to heat, unexplained weight gain, unexplained weight loss, others Psychiatric: denies: anxiety, bipolar disorder, depression, hopeless, panic disorder, schizophrenia, sleepless, suicidal, others All Other Systems: Reviewed and Negative Physical Exam General Appearance: No Apparent Distress, Normal HEENT: Normal ENT Inspection, Pharynx Normal, TMs Normal Neck: Full Range of Motion, Non-Tender, Normal, Normal Inspection Respiratory: Chest Non-Tender, Lungs Clear, No Accessory Muscle Use, No Respiratory Distress, Normal Breath Sounds Cardiovascular: No Edema, No JVD, No Murmur, No Gallop, Normal Peripheral Pulses, Regular Rate/Rhythm Breast Exam: Deferred Gastrointestinal: No Organomegaly, Non Tender, No Pulsatile Mass, Normal Bowel Sounds, Soft Genitalia: Deferred Pelvic: Deferred Rectal: Deferred Extremities: No calf tenderness, Normal capillary refill, Normal inspection, Normal range of motion, Non-tender, No pedal edema Musculoskeletal : Apperance: Normal Neurologic: No Motor Deficits, Normal Affect, No Sensory Deficits, Other (NO ATTEMPT TO SPEAK) Cerebellar Function: Normal Reflexes: Normal Skin: Dry, Normal Color, Warm Lymphatic: No Adenopathy Was a procedure done? Was a procedure done?: No Differential Diagnosis (SZ) Seizure: Hyperventilation, Psychogenic Seizure, Closed Head Injury, CVA/TIA, Drug Ingestion, Hypocalcemia, Hypoglycemia, Hyponatremia, Hypoxemia, Idiopathic, Mass Lesion, Syncope, Encephalopathy CVA: CVA, Drug Overdose, Hypoglycemia, Hypoxemia, Mass Lesion, SAH, TIA General Weakness: Dehydration, Hypoglycemia Headache: CVA, Epidural Hemorrhage, Intracerebral Hemorrhage, Subarachnoid Hemorrhage, Subdural Hemorrhage, Mass Lesion X-Ray, Labs, Meds, VS Vital Signs Date Time Temp Pulse Resp B/P (MAP) Pulse Ox O2 Delivery O2 Flow Rate FiO2 10/10/24 16:43 98.5 94 16 161/99 (119) 98 98.5 10/10/24 16:30 90 Lab Test 10/10/24 16:41 10/10/24 16:20 Range/Units POC Glucose 267 H 70-106 mg/dl White Blood Count 6.7 4.4-10.8 10^3/uL Red Blood Count 4.95 4.0-5.20 10^6/uL Hemoglobin 14.1 12.2-16.2 g/dL Hematocrit 41.5 36.0-46.0 % Mean Corpuscular Volume 83.9 80.0-100.0 fL Mean Corpuscular Hemoglobin 28.4 28.0-32.0 pg Mean Corpuscular Hemoglobin Concent 33.9 32.0-36.0 g/dL Red Cell Distribution Width 14.8 H 11.8-14.3 % Platelet Count 254 140-450 10^3/uL Mean Platelet Volume 8.4 6.9-10.8 fL Neutrophils (%) (Auto) 63.0 37.0-80.0 % Lymphocytes (%) (Auto) 26.2 10.0-50.0 % Monocytes (%) (Auto) 7.1 0.0-12.0 % Eosinophils (%) (Auto) 3.0 0.0-7.0 % Basophils (%) (Auto) 0.7 0.0-2.0 % Neutrophils # (Auto) 4.2 1.6-8.6 10 ^3/uL Lymphocytes # (Auto) 1.8 0.4-5.4 10 ^3/uL Monocytes # (Auto) 0.5 0-1.3 10 ^3/uL Eosinophils # (Auto) 0.2 0-0.8 10 ^3/uL Basophils # (Auto) 0 0-0.2 10 ^3/uL Nucleated Red Blood Cells 0.1 % Prothrombin Time 10.5 9.3-11.8 sec Prothrombin Time INR 0.99 0.9-1.15 Activated Partial Thromboplast Time 24.5 24.5-34.5 SEC Sodium Level 137 136-145 mmol/L Potassium Level 3.9 3.5-5.1 mmol/L Chloride Level 106 98-107 mmol/L Carbon Dioxide Level 22 20-31 mmol/L Anion Gap 9 5-15 Blood Urea Nitrogen 10 9-23 mg/dL Creatinine 0.68 0.550-1.02 mg/dL Glomerular Filtration Rate Calc 97 >90 mL/min BUN/Creatinine Ratio 14.7 10.0-20.0 Serum Glucose 294 H 74-106 mg/dL Calcium Level 9.8 8.7-10.4 mg/dL Total Bilirubin 0.2 0.2-1.0 mg/dL Aspartate Amino Transferase (AST) 16 13-40 U/L Alanine Aminotransferase (ALT) 25 7-40 U/L Alkaline Phosphatase 83 46-116 U/L Troponin I High Sensitivity < 3 L </=34 ng/L Total Protein 6.7 5.7-8.2 g/dL Albumin 4.3 3.2-4.8 g/dL [place] [id number] Ph: [phone] DIAGNOSTIC IMAGING Diagnostic Imaging Report : [id number] Signed PATIENT: ELVIS CONCEPCION ACCT: [id number] UNIT: [id number] : 1960 LOC: ER ROOM / BED: / AGE / SEX: 64 / F ADM STATUS: REG ER SERVICE [id number] ORDERING PHYSICIAN: MARY BARNETT MD PROCEDURE(s): CTH - STROKE CTH REASON: r/o cva ORDER NUMBER(s): [id number], ACCESSION NUMBER(s): [id number] CT STROKE CTH INDICATION: r/o cva : 64 old Female r/o cva EXAM DATE: 10/10/2024 04:40 PM COMPARISON: CT HEAD WITHOUT CONTRAST on DOS: 2/24/25, CT HEAD WITHOUT CONTRAST on DOS: 05/14/24, HEAD WITHOUT CONTRAST on DOS: 08/13/22 RADIATION DOSE: CTDIvol: 63.21 mGy, DLP: 1371.95 mGy*cm PROCEDURE: CT scans of the head were obtained from the vertex to the skull base. Sagittal and coronal reconstructions were provided. All CT scans at this medical facility are performed using dose modulation techniques as appropriate to a performed exam including the following: Automated exposure control was utilized; adjustment of the MA and/or KV according to pa tient size; and use of iterative reconstruction technique. FINDINGS: There is sulcal and ventricular prominence. The brain otherwise shows normal morphology and fang-white matter differentiation, without intracranial hemorrhage, extra-axial fluid collection, mass effect or acute large vessel infarct. The ventricles are normal in size. The basal cisterns are patent. The skull and visible facial bones are intact. The paranasal sinuses, mastoid air cells and middle ear cavities are well-aerated. Small left frontal scalp contusion. IMPRESSION: No acute intracranial abnormality. ATED BY: TERENCE COOPER MD DICTATED DATE/TIME: 10/10/241722 SIGNED BY: TERENCE COOPER MD SIGNED DATE/TIME: 10/10/241722 CC: Time of 1ST Reevaluation: 17:00 Reevaluation 1ST: Unchanged Patient Education/Counseling: Diagnosis, Treatment, Prognosis, Need For Follow Up Family Education/Counseling: No Family Present Comments The following charts were reviewed from patient prior visits: 10/03/24 DX:UNSTABLE ANGINA, 09/05/24 DX:CP, 08/28/01 DX:ACUTE CHEST PAIN R/O ACS, 08/17/24 SYNCOPE, 08/13/24 DX: The following tests were ordered, and results were reviewed by me: LABS, EKG X3, CT, CXR Additional Information was gathered from interviewing the following independent historians: EMS I reviewed and agreed with the following test results read by other providers: CT, CXR I discussed treatment and results with medical personnel and: Patient, TELENEUROLOGY Comprehensive systems review obtained and negative except for what is stated in the HPI. teleneurology feels that although this may be functional, she recommends admission for further evaluation, including a MRI. pt is not a candidate for thrombolytics Departure 1 Departure Time of Disposition: 17:37 Impression: Primary Impression: Stroke-like symptom Additional Impressions: Aphasia Left-sided weakness Disposition: ADMITTED INPATIENT Admit to: Tele Condition: Serious Discharged With: Self Critical Care Note Critical Care Time?: Yes (55 min-critical care time only) Critical care comment: Due to concerns for patients condition deteriorating, the care required my highest level of attention and readiness to intervene. I assessed the patient, reviewed the medical records, ordered the appropriate tests and treatments, then reassessed for results and responsiveness. I communicated with medical personnel and consultants and formulated a plan of care. Total critical care time excludes any procedures Stability Stability form required: No Heart Score Heart Score: Heart Score Response (Comments) Value History N/A 0 EKG N/A 0 Age N/A 0 Risk Factors N/A 0 Troponin N/A 0 Total 0 I personally scribed for MARY BARNETT MD ([email or web address]) on 10/10/24 at 16:42. Electronically submitted by Madhuri Rodriguez ([email or web address]). I personally scribed for MARY BARNETT MD ([email or web address]) on 10/10/24 at 16:48. Electronically submitted by Madhuri Rodriguez ([email or web address]). I personally scribed for MARY BARNETT MD ([email or web address]) on 10/10/24 at 16:57. Electronically submitted by Madhuri Rodriguez ([email or web address]). I personally scribed for MARY BARNETT MD ([email or web address]) on 10/10/24 at 17:31. Electronically submitted by Madhuri Rodriguez ([email or web address]). MARY BARNETT MD Oct 10, 2024 16:42
[2024-10-10 16:57] LABS: Basophils # (auto) 0 10 ^3/uL (0-0.2); Basophils % (auto) 0.7 % (0.0-2.0); Eosinophils # (auto) 0.2 10 ^3/uL (0-0.8); Hematocrit 41.5 % (36.0-46.0); Hemoglobin 14.1 g/dL (12.2-16.2); Lymphocytes # (auto) 1.8 10 ^3/uL (0.4-5.4); Lymphocytes % (auto) 26.2 % (10.0-50.0); Mean Corpuscular Hemoglobin 28.4 pg (28.0-32.0); Mean Corpuscular Hgb Conc. 33.9 g/dL (32.0-36.0); Mean Corpuscular Volume 83.9 fL (80.0-100.0); Monocytes # (auto) 0.5 10 ^3/uL (0-1.3); Monocytes % (auto) 7.1 % (0.0-12.0); Neutrophils # (auto) 4.2 10 ^3/uL (1.6-8.6); Nucleated Red Blood Cells % 0.1 %; Platelet Count (auto) 254 10^3/uL (140-450); Red Blood Cells 4.95 10^6/uL (4.0-5.20); Red Cell Distribution Width 14.8 % (11.8-14.3); White Blood Cell 6.7 10^3/uL (4.4-10.8)
[2024-10-10 17:06] LABS: Alanine Aminotransferase 25 U/L (7-40); Albumin 4.3 g/dL (3.2-4.8); Alkaline Phosphatase 83 U/L (46-116); Anion Gap 9 (5-15); Aspartate Aminotransferase 16 U/L (13-40); BUN/Creatinine Ratio 14.7 (10.0-20.0); Blood Urea Nitrogen 10 mg/dL (9-23); Calcium 9.8 mg/dL (8.7-10.4); Carbon Dioxide 22 mmol/L (20-31); Chloride 106 mmol/L (98-107); Potassium 3.9 mmol/L (3.5-5.1); Sodium 137 mmol/L (136-145); Total Protein 6.7 g/dL (5.7-8.2)
[2024-10-10 17:11] LABS: INR 0.99 (0.9-1.15); Partial Thromboplastin Time 24.5 SEC (24.5-34.5); Prothrombin Time 10.5 sec (9.3-11.8)
[2024-10-10 17:12] LABS: Bilirubin, Total 0.2 mg/dL (0.2-1.0); Glucose 294 mg/dL (74-106)
--- NOTE | 2024-10-10 17:25 | DVH ---
CT STROKE CTH INDICATION: r/o cva : 64 old Female r/o cva EXAM DATE: 10/10/2024 04:40 PM COMPARISON: CT HEAD WITHOUT CONTRAST on DOS: 08/17/24, CT HEAD WITHOUT CONTRAST on DOS: 05/14/24, HEAD WITHOUT CONTRAST on DOS: 08/13/22 RADIATION DOSE: CTDIvol: 63.21 mGy, DLP: 1371.95 mGy*cm PROCEDURE: CT scans of the head were obtained from the vertex to the skull base. Sagittal and coronal reconstructions were provided. All CT scans at this medical facility are performed using dose modulation techniques as appropriate t o a performed exam including the following: Automated exposure control was utilized; adjustment of th e MA and/or KV according to patient size; and use of iterative reconstruction technique. FINDINGS: There is sulcal and ventricular prominence. The brain otherwise shows normal morphology a nd fang-white matter differentiation, without intracranial hemorrhage, extra-axial fluid collection, mass effect or acute large vessel infarct. The ventricles are normal in size. The basal cisterns are patent. The skull and visible facial bones are intact. The paranasal sinuses, mastoid air cells and m iddle ear cavities are well-aerated. Small left frontal scalp contusion. IMPRESSION: No acute intracranial abnormality.
--- NOTE | 2024-10-10 17:32 | DVH ---
XY CHEST XRAY 1 VIEW, HISTORY: r/o cva COMPARISON: XY CHEST XRAY 1 VIEW on DOS: 08/27/24, XY CHEST PORTABLE on DOS: 08/17/24, XY CHEST PORTABLE on DOS: 08/13/24 XY CHEST XRAY 1 VIEW on DOS: 08/27/24, XY CHEST PORTABLE on DOS: 08/17/24, XY CHEST PORTABLE on DOS: 07/26 TECHNICAL DATA: 1 view of the chest was obtained. FINDINGS: Lines and tubes: None Cardiomediastinal silhouette: Enlarged. Pulmonary vasculature: Prominent. Lung expansion: normal Lung airspace: normal Lung interstitium: normal Pleura: normal Pneumothorax: no Bones: Unremarkable Other: no IMPRESSION: Cardiomegaly with pulmonary vascular congestion.
[2024-10-10] MEDS: ASPirin 81 mg TAB PO ONE (17:45)
[2024-10-10 18:18] LABS: Urine Bacteria None Seen /hpf (None Seen)
[2024-10-10 18:31] LABS: Urine Blood Negative /uL (Negative); Urine Clarity Clear (Clear); Urine Color Yellow (Yellow); Urine Protein, UAD Negative (Negative); Urine Specific Gravity 1.011 (1.001-1.035); Urine Squamous Epithelial Cell None Seen /hpf (<5); Urine Urobilinogen Normal (Negative); Urine WBC 2 /HPF (0-5)
[2024-10-10 20:39] VITALS: PULSE 77; RESP 16; O2SAT 94
--- NOTE | 2024-10-10 20:41 | DVHINCON2 ---
Date of service: Oct 10, [address] Pacheco Reason for Consultation Stroke History of Present Illness This is a STAT consultation Ms. Anthony is a 64 years old right-handed female with a history of hypertension, diabetes, dyslipidemia, coronary artery disease, heart attack, obesity, sleep apnea on CPAP, chronic low back pain, diverticulitis, she came to the hospital on 10/10/24 with a chief company of acute stroke syndrome, at this time, she is in the bed, not able to vocalize or move the left extremities, I presumed she was fully oriented, the history is obtained from her (she uses a pencil and paper to communicate) Around 3:00 p.m. on 10/10/2024, she developed acute left-sided weakness in that she is not able to move the left extremities at all, not able to vocalize though her mind is clear, not able to swallow, 9/10 headache, blurred vision whole visual field. Her problems persist with no changes the patient was developed acute speech difficulty in that she was not able to vocalize, she also had left-sided weakness in that she was not able to move the arms and legs except for wiggling the toes and fingers, she also had confusion but she was able to recognize people are now her and she knew where she was. After blue sebastián neurology consultation, the patient was given TNKase and sometimes late, the patient started to have improvement in her speech disturbance and left-sided weakness I saw her on 09/05/2024 for stroke(left hemiplegia, aphasia), she was transferred to the [facility] after IV thrombolytic treatment. MRI was not obtained confirmed stroke because of implantation for low back pain. On discharge she was prescribed with aspirin 81 mg daily, but her daughter does not remember if she was on cholesterol medications On 09/15/2024, when she was in a rehab, she developed right-sided weakness, speech difficulty (not able to vocalize), but stroke was not able to confirmed because MRI was not obtained She has good recovery from above strokes She has sleep apnea, she is on CPAP, she reports good compliance, but she does not remember her CPAP dosage According to her nurse, She has received tele stroke consultation [phone] Urinalysis, 10/10/2024: Unremarkable CBC, 09/05/2024: Unremarkable, 10/10/2024: Unremarkable CMP, 09/05/2024: Unremarkable, 10/10/2024: Unremarkable TG/HDL/LDL/HDL, 10/04/2024: 136/124/69/40 Vitamin B12, 05/2024: 978 Folic acid, 05/2024: 33.34 TSH, 10/04/24: 0.8 Echocardiogram, 09/05/2024: MILD LVH AND MILD LV DIASTOLIC DYSFUNCTION LV EJECTION IS 65% POSTERIOR MV CALCIFIED AORTIC VALVE CALCIFIED AND DECREASED OPENING PEAK GRADIENT ACROSS AORTIC VALVE IS 44 MM OF HG AND MEAN GRADIENT IS 25 MM OF HG AORTIC VALVE AREA IS 1.1 CM SQUARE MODERATE DEGREE AORTIC REGURGITATION MODERATE DEGREE AORTIC STENOSIS NO EFFUSION Carotid Doppler, 08/17/2024: No hemodynamically significant stenosis noted in right and left carotid system. CT head, 09/05/2024: 1. No acute intracranial process. 2. Chronic microvascular ischemic changes and old bilateral basal ganglia lacunar infarcts CT head, 10/10/2024: No acute intracranial abnormality CTA head, neck, 09/05/2024: No large vessel occlusion or high-grade stenosis in the arteries of the head and neck. No aneurysm is identified. Past Medical History Hypertension, diabetes, dyslipidemia, coronary artery disease, heart attack, obesity, sleep apnea on CPAP, chronic low back pain, diverticulitis Past Surgical History Appendectomy, cholecystectomy, hernia repair, not for VATS fine laminectomy, cervical spine surgery, left shoulder surgery, right ankle fracture repair, spinal stimulator insertion Family History: Colon cancer G8 MOTHER, Depression G8 MOTHER, Diabetes mellitus G8 MOTHER, G8 BROTHER Family history: Diabetes mellitus G8 MOTHER, (mother) G8 BROTHER (older brother) Family history: Hypertension G8 BROTHER (brothers) Ischemic heart disease G8 MOTHER, Prostate carcinoma G8 FATHER, Family History Hypertension, diabetes, coronary artery disease, heart attack, colon cancer Social History She has no history of tobacco smoking, alcohol or drug abuse Allergies: Coded Allergies: Sulfa Drugs (Verified Allergy, Mild, rash, 08/13/24) Sulfa Antibiotics (Unverified Allergy, Unknown, 09/05/24) Indomethacin (Verified Adverse Reaction, Mild, migraine, 08/13/24) Home Meds Active Scripts Ciprofloxacin Hcl (Cipro) 500 Mg Tab, 1 TAB PO BID, #20 TAB Prov:CECILIA BRITO MD 10/07/24 Tramadol HCl (Tramadol HCl) 50 Mg Tab, 50 MG PO TID PRN, #30 TAB Prov:CECILIA BRITO MD 10/07/24 Lorazepam (ATIVAN TABLET) 0.5 Mg Tb, 1 TAB PO TID PRN, #30 TAB Prov:CECILIA BRITO MD 10/07/24 Gabapentin (Gabapentin) 300 Mg Cap, 300 MG PO TID for 30 Days, #90 CAP 3 Refills Prov:SETH TAO DO 08/16/24 Docusate Sodium (Docusate Sodium) 100 Mg Cap, 100 MG PO BIDPRN PRN for 15 Days, #15 CAP Prov:MOUNIKA TILLMAN MD 04/20/24 Fluticasone Propionate (Nasal) (Fluticasone Propionate) 50 Mcg/Act Spr, 50 MCG EACHNOSTRI Q12HR for 30 Days, #2 SPRAY Prov:MOUNIKA TILLMAN MD 04/17/24 Insulin Regular (Human) (Novolin R Flexpen) 100 Unit/Ml Inj, 15 UNIT IJ TID for 28 Days, #100 INJ 15 units before meals, cheack blood sugar 2 hours after meal and add sliding scale Prov:MOUNIKA TILLMAN MD 04/17/24 Insulin Glargine (Lantus Solostar) 100 Unit/Ml Inj, 90 UNITS SC DAILY for 28 Days, #30 INJ Prov:MOUNIKA TLILMAN MD 04/17/24 Reported Medications Mesalamine (Canasa) 1,000 Mg Sup, 400 MG RE BID, SUPP 08/28/24 Metoprolol Tartrate (Metoprolol Tartrate) 25 Mg Tab, 25 MG PO DAILY for 30 Days, MG 08/28/24 Semaglutide (Ozempic) 2 Mg/3 Ml Inj, 2 MG SC, INJ 08/13/24 Metoprolol Tartrate (Metoprolol Tartrate) 25 Mg Tab, 1 TAB PO BID, #180 TAB 1 Refill 08/13/24 Mesalamine (Mesalamine Dr) 400 Mg Cap, 400 MG PO, CAP 08/13/24 Duloxetine Hcl (Cymbalta) 60 Mg Cap, 1 CAP PO DAILY, #90 CAP 3 Refills 08/13/24 Ondansetron HCl (Ondansetron) 4 Mg Tab, 4 MG PO DAILY PRN for NAUSEA 07/15/23 Pitolisant Hydrochloride (Wakix) 17.8 Mg Tab, 2 TAB PO DAILY for NARCOLEPSY for 90 Days, #180 11/02/21 Lisinopril (Lisinopril) 10 Mg Tab, 10 MG PO DAILY for 30 Days, MG 07/26/16 Review of Systems As above, the other systems are negative Vital Signs Vital Signs Date Time Temp Pulse Resp B/P (MAP) Pulse Ox O2 Delivery O2 Flow Rate FiO2 10/10/24 19:00 73 20 149/72 (97) 90 10/10/24 17:00 98.0 98.0 10/10/24 17:00 Room Air* 0 21 Physical Exam GENERAL EXAM: General: the patient is well developed and nourished. No acute distress. HEENT: Normocephalic, neck is supple, no carotid bruits. No mass RESPIRATORY: Normal respiratory effort with symmetrical lung expansion. Lungs clear to auscultation. CARDIOVASCULAR: Regular rate and rhythm with no murmurs. S1, S2. ABDOMEN: Soft, nontender, normal bowel sound NEUROLOGICAL: MENTAL STATUS: Awake and alert. A presumed the patient was is fully oriented SPEECH, LANGUAGE, HIGHER CORTICAL FUNCTION: She understands, she can write, read, but not able to vocalize CRANIAL NERVES: #2: Intact visual bloom to confrontation, but everything is blurry. The optic discs were sharp #3,4,6: Pupils are equal, round and reactive. EOMs full and conjugate. No nystagmus. #5: Facial sensation intact in all three divisions bilaterally. Mandibular strength intact. #7: Facial muscles symmetrical and strength intact. #8: Hearing grossly normal to voice. #9,10: Uvula and soft palate rise in the midline. Swallow and voice are normal. #11: Trapezius and sternomastoid strength intact bilaterally. #12: Tongue midline. No fasciculations or atrophy. SENSATION: Sensation to touch and pinprick is diminished in the left arm, leg MOTOR: Normal tone in the upper and lower extremity. Normal muscle bulk. No fasciculations. No abnormal movements or posturing. Muscle strength of the major groups in the right extremities is 5/5. Muscle strength of the major groups in the left extremities is: 0/5 REFLEXES: Deep tendon reflexes normal and symmetrical. No pathological reflexes. CEREBELLAR/COORDINATION: No ataxia in the right-handed GAIT/STATION: deferred Labs/Diagnostic Data Labs Test 10/10/24 18:00 10/10/24 16:41 10/10/24 16:20 Range/Units Urine Color Yellow Yellow Urine Clarity Clear Clear Urine pH 6.0 5.0-9.0 Urine Specific [place] 1.011 1.001-1.035 Urine Protein Negative Negative Urine Ketones Negative Negative Urine Blood Negative Negative /uL Urine Nitrite Negative Negative Urine Bilirubin Negative Negative Urine Urobilinogen Normal Negative mg/dL Urine Leukocyte Esterase Negative Negative /uL Urine RBC 1 0 - 4 /hpf Urine Microscopic WBC 2 0-5 /HPF Urine Squamous Epithelial Cells None seen <5 /hpf Urine Bacteria None seen None Seen /hpf Urine Glucose 3+ H Normal mg/dL Troponin I High Sensitivity < 3 L </=34 ng/L POC Glucose 267 H 70-106 mg/dl White Blood Count 6.7 4.4-10.8 10^3/uL Red Blood Count 4.95 4.0-5.20 10^6/uL Hemoglobin 14.1 12.2-16.2 g/dL Hematocrit 41.5 36.0-46.0 % Mean Corpuscular Volume 83.9 80.0-100.0 fL Mean Corpuscular Hemoglobin 28.4 28.0-32.0 pg Mean Corpuscular Hemoglobin Concent 33.9 32.0-36.0 g/dL Red Cell Distribution Width 14.8 H 11.8-14.3 % Platelet Count 254 140-450 10^3/uL Mean Platelet Volume 8.4 6.9-10.8 fL Neutrophils (%) (Auto) 63.0 37.0-80.0 % Lymphocytes (%) (Auto) 26.2 10.0-50.0 % Monocytes (%) (Auto) 7.1 0.0-12.0 % Eosinophils (%) (Auto) 3.0 0.0-7.0 % Basophils (%) (Auto) 0.7 0.0-2.0 % Neutrophils # (Auto) 4.2 1.6-8.6 10 ^3/uL Lymphocytes # (Auto) 1.8 0.4-5.4 10 ^3/uL Monocytes # (Auto) 0.5 0-1.3 10 ^3/uL Eosinophils # (Auto) 0.2 0-0.8 10 ^3/uL Basophils # (Auto) 0 0-0.2 10 ^3/uL Nucleated Red Blood Cells 0.1 % Prothrombin Time 10.5 9.3-11.8 sec Prothrombin Time INR 0.99 0.9-1.15 Activated Partial Thromboplast Time 24.5 24.5-34.5 SEC Sodium Level 137 136-145 mmol/L Potassium Level 3.9 3.5-5.1 mmol/L Chloride Level 106 98-107 mmol/L Carbon Dioxide Level 22 20-31 mmol/L Anion Gap 9 5-15 Blood Urea Nitrogen 10 9-23 mg/dL Creatinine 0.68 0.550-1.02 mg/dL Glomerular Filtration Rate Calc 97 >90 mL/min BUN/Creatinine Ratio 14.7 10.0-20.0 Serum Glucose 294 H 74-106 mg/dL Calcium Level 9.8 8.7-10.4 mg/dL Total Bilirubin 0.2 0.2-1.0 mg/dL Aspartate Amino Transferase (AST) 16 13-40 U/L Alanine Aminotransferase (ALT) 25 7-40 U/L Alkaline Phosphatase 83 46-116 U/L Total Protein 6.7 5.7-8.2 g/dL Albumin 4.3 3.2-4.8 g/dL Assessment Acute stroke syndrome with aphasia, left-sided hemiplegia, Stroke on 09/05/2024, status post IV thrombolytic treatment Stroke on 09/15/2024 Obesity Sleep apnea on CPAP Plan/Recommendation Monitoring Supportive treatment Telemetry Follow up lipid profile Follow up CT brain scan Speech pathology evaluation Stabilize vitals Stabilize blood pressure Avoid fever with Tylenol Aspirin 81 mg daily APAP in the hospital Secondary stroke prevention, stroke risk fact discussed Waiting for blue sebastián Neurology reports Progress: Poor This medical document was created using an electronic medical record system with ad[employer]q dictation system. Although this document has been carefully reviewed, there may still be some phonetic and typographical errors. These areas are purely typographical due to imperfections of the software programs, and do not reflect any compromise in the patient's medical care. Plan discussed with: Daughter, Other VALENTIN ESTEVEZ MD Oct 10, 2024 20:41
[2024-10-10] MEDS: ACETAMINOPHEN 650 MG RECT SUPP PR ONE (21:19)
[2024-10-10] MEDS ORDERED: DEXTROSE (50%) 50ML SYRG IV PRN (21:45)
--- NOTE | 2024-10-10 21:49 | DVHHP2 ---
History of Present Illness Reason for Visit: Left-sided weakness History of Present Illness 64-year-old female presents for evaluation of left-sided weakness. Patient reports left-sided upper and lower extremity weakness and facial droop starting today at 3:00 p.m. patient is able to communicate by writing only. Patient reports having difficulty swallowing and she is also aphasic. No facial droop noted at the moment. Patient is unable to move her left upper and lower extremity. Past Medical History Diabetes mellitus, CVA, hypertension, mi, dyslipidemia Past Surgical History Spinal stimulator Family History Diabetes mellitus and cancer Smoke: No ALCOHOL: none Drugs: None Lives: with Family Review of Systems Review of Systems Review of systems are currently negative otherwise addressed in HPI. Allergies: Coded Allergies: Sulfa Drugs (Verified Allergy, Mild, rash, 08/13/24) Sulfa Antibiotics (Unverified Allergy, Unknown, 09/05/24) Indomethacin (Verified Adverse Reaction, Mild, migraine, 08/13/24) Exam Vital Signs Vital Signs Date Time Temp Pulse Resp B/P (MAP) Pulse Ox O2 Delivery O2 Flow Rate FiO2 10/10/24 20:39 77 16 94 Room Air* 0 21 10/10/24 20:00 98.1 138/63 (88) 98.1 Exam Gen: 64-year-old female in mild distress, morbidly obese Skin: Warm, dry, normal color and texture, no rash. HEENT: Normocephalic atraumatic, mucous membranes moist and pink. Neck: Cervical and supraclavicular nodes normal without enlargement, trachea is midline, thyroid gland is normal without masses. Pulmonary: Clear to auscultation and percussion bilaterally. Cardiac: Regular rate and rhythm. No murmur Abdomen: Soft, nontender, nondistended, bowel sounds present all 4 quadrants, no guarding, no rigidity, no organomegaly. Extremities: No cyanosis, clubbing, no edema Neuro: Left upper and lower extremity 0/5, right upper and lower extremity 5/5 Labs/Xrays ORDERING PHYSICIAN: JUSTIN ONTIVEROS NP PROCEDURE(s): ECIDC - ECHO 2D MODE CARDIAC DOP REASON: acute cva ORDER NUMBER(s): [id number], ACCESSION NUMBER(s): [id number] APPROVED REPORT EXAM: Two-dimensional and M-mode echocardiogram with Doppler and color Doppler. Blood Pressure: 112/60 mmHg INDICATION CVA/TIA: RISK FACTORS Obesity: Height: 5'6, Weight: 260 DIMENSIONS LVDd 3.8 (3.8-5.7cm) LA (2D) 4.0 (1.9-4.0cm) Aortic Root 3.1 (2.0- 3.7cm) LVDs 2.5 (2.5-4.0cm) LA (MM) (1.9-4.0cm) Aortic Cusp Exc 1.0 (1.5- 2.0cm) EF (%) 60.0 (55-70%) Rt. Atrium 3.1 (1.9-4.0cm) Asc. Aorta 3.3 cm IVSd 1.5 (0.7-1.1cm) RV (D) (1.8-2.4cm) PWd 1.1 (0.7-1.1cm) Mitral Valve Mitral Mitral Stenosis E wave 0.88m/s MV Mean GR. mmHg A wave 1.10m/s MV Peak GR. mmHg E/A ratio 0.8 2D MVA cm2 DECEL Time 261ms PRESS 1/2 Time ms Aortic Valve Aortic Valve Aortic Stenosis V1 0.96m/s AO Mean GR. 25mmHg V2 3.32m/s AO Peak GR. 44mmHg LVOT Diameter 2.2 (1.8-2.4cm) Doppler LISA 1.10cm2 AI P 1/2 Time 474.85ms Tricuspid Valve TR Velocity 2.13m/s RVSP 21mmHg Other Information Quality : Technically Limited Rhythm : Technically limited study due to body habitus.patient position. Conclusion MILD LVH AND MILD LV DIASTOLIC DYSFUNCTION LV EJECTION IS 65% POSTERIOR MV CALCIFIED AORTIC VALVE CALCIFIED AND DECREASED OPENING PEAK GRADIENT ACROSS AORTIC VALVE IS 44 MM OF HG AND MEAN GRADIENT IS 25 MM OF HG AORTIC VALVE AREA IS 1.1 CM SQUARE MODERATE DEGREE AORTIC REGURGITATION MODERATE DEGREE AORTIC STENOSIS NO EFFUSION ORDERING PHYSICIAN: MARY BARNETT MD PROCEDURE(s): CXR1 - CHEST XRAY 1 VIEW REASON: r/o cva ORDER NUMBER(s): [id number], ACCESSION NUMBER(s): [id number] XY CHEST XRAY 1 VIEW, HISTORY: r/o cva COMPARISON: XY CHEST XRAY 1 VIEW on DOS: 08/27/24, XY CHEST PORTABLE on DOS: 08/17/24, XY CHEST PORTABLE on DOS: 08/13/24 XY CHEST XRAY 1 VIEW on DOS: 08/27/24, XY CHEST PORTABLE on DOS: 08/17/24, XY CHEST PORTABLE on DOS: 08/13/24 TECHNICAL DATA: 1 view of the chest was obtained. FINDINGS: Lines and tubes: None Cardiomediastinal silhouette: Enlarged. Pulmonary vasculature: Prominent. Lung expansion: normal Lung airspace: normal Lung interstitium: normal Pleura: normal Pneumothorax: no Bones: Unremarkable Other: no IMPRESSION: Cardiomegaly with pulmonary vascular congestion. RING PHYSICIAN: MARY BARNETT MD PROCEDURE(s): CTH - STROKE CTH REASON: r/o cva ORDER NUMBER(s): [id number], ACCESSION NUMBER(s): [id number] CT STROKE CTH INDICATION: r/o cva : 64 old Female r/o cva EXAM DATE: 10/10/2024 04:40 PM COMPARISON: CT HEAD WITHOUT CONTRAST on DOS: 08/17/24, CT HEAD WITHOUT CONTRAST on DOS: 05/14/24, HEAD WITHOUT CONTRAST on DOS: 08/13/22 RADIATION DOSE: CTDIvol: 63.21 mGy, DLP: 1371.95 mGy*cm PROCEDURE: CT scans of the head were obtained from the vertex to the skull base. Sagittal and coronal reconstructions were provided. All CT scans at this medical facility are performed using dose modulation techniques as appropriate to a performed exam including the following: Automated exposure control was utilized; adjustment of the MA and/or KV according to patient size; and use of iterative reconstruction technique. FINDINGS: There is sulcal and ventricular prominence. The brain otherwise shows normal morphology and fang-white matter differentiation, without intracranial hemorrhage, extra-axial fluid collection, mass effect or acute large vessel infarct. The ventricles are normal in size. The basal cisterns are patent. The skull and visible facial bones are intact. The paranasal sinuses, mastoid air cells and middle ear cavities are well-aerated. Small left frontal scalp contusion. IMPRESSION: No acute intracranial abnormality. RING PHYSICIAN: MARY BARNETT MD PROCEDURE(s): CTH - STROKE CTH REASON: r/o cva ORDER NUMBER(s): [id number], ACCESSION NUMBER(s): [id number] CT STROKE CTH INDICATION: r/o cva : 64 old Female r/o cva EXAM DATE: 10/10/2024 04:40 PM COMPARISON: CT HEAD WITHOUT CONTRAST on DOS: 08/17/24, CT HEAD WITHOUT CONTRAST on DOS: 05/14/24, HEAD WITHOUT CONTRAST on DOS: 08/13/22 RADIATION DOSE: CTDIvol: 63.21 mGy, DLP: 1371.95 mGy*cm PROCEDURE: CT scans of the head were obtained from the vertex to the skull base. Sagittal and coronal reconstructions were provided. All CT scans at this medical facility are performed using dose modulation techniques as appropriate to a performed exam including the following: Automated exposure control was utilized; adjustment of the MA and/or KV according to patient size; and use of iterative reconstruction technique. FINDINGS: There is sulcal and ventricular prominence. The brain otherwise shows normal morphology and fang-white matter differentiation, without intracranial hemorrhage, extra-axial fluid collection, mass effect or acute large vessel infarct. The ventricles are normal in size. The basal cisterns are patent. The skull and visible facial bones are intact. The paranasal sinuses, mastoid air cells and middle ear cavities are well-aerated. Small left frontal scalp contusion. IMPRESSION: No acute intracranial abnormality. Labs Test 10/10/24 18:00 10/10/24 16:41 10/10/24 16:20 Range/Units Urine Color Yellow Yellow Urine Clarity Clear Clear Urine pH 6.0 5.0-9.0 Urine Specific [place] 1.011 1.001-1.035 Urine Protein Negative Negative Urine Ketones Negative Negative Urine Blood Negative Negative /uL Urine Nitrite Negative Negative Urine Bilirubin Negative Negative Urine Urobilinogen Normal Negative mg/dL Urine Leukocyte Esterase Negative Negative /uL Urine RBC 1 0 - 4 /hpf Urine Microscopic WBC 2 0-5 /HPF Urine Squamous Epithelial Cells None seen <5 /hpf Urine Bacteria None seen None Seen /hpf Urine Glucose 3+ H Normal mg/dL Troponin I High Sensitivity < 3 L </=34 ng/L POC Glucose 267 H 70-106 mg/dl White Blood Count 6.7 4.4-10.8 10^3/uL Red Blood Count 4.95 4.0-5.20 10^6/uL Hemoglobin 14.1 12.2-16.2 g/dL Hematocrit 41.5 36.0-46.0 % Mean Corpuscular Volume 83.9 80.0-100.0 fL Mean Corpuscular Hemoglobin 28.4 28.0-32.0 pg Mean Corpuscular Hemoglobin Concent 33.9 32.0-36.0 g/dL Red Cell Distribution Width 14.8 H 11.8-14.3 % Platelet Count 254 140-450 10^3/uL Mean Platelet Volume 8.4 6.9-10.8 fL Neutrophils (%) (Auto) 63.0 37.0-80.0 % Lymphocytes (%) (Auto) 26.2 10.0-50.0 % Monocytes (%) (Auto) 7.1 0.0-12.0 % Eosinophils (%) (Auto) 3.0 0.0-7.0 % Basophils (%) (Auto) 0.7 0.0-2.0 % Neutrophils # (Auto) 4.2 1.6-8.6 10 ^3/uL Lymphocytes # (Auto) 1.8 0.4-5.4 10 ^3/uL Monocytes # (Auto) 0.5 0-1.3 10 ^3/uL Eosinophils # (Auto) 0.2 0-0.8 10 ^3/uL Basophils # (Auto) 0 0-0.2 10 ^3/uL Nucleated Red Blood Cells 0.1 % Prothrombin Time 10.5 9.3-11.8 sec Prothrombin Time INR 0.99 0.9-1.15 Activated Partial Thromboplast Time 24.5 24.5-34.5 SEC Sodium Level 137 136-145 mmol/L Potassium Level 3.9 3.5-5.1 mmol/L Chloride Level 106 98-107 mmol/L Carbon Dioxide Level 22 20-31 mmol/L Anion Gap 9 5-15 Blood Urea Nitrogen 10 9-23 mg/dL Creatinine 0.68 0.550-1.02 mg/dL Glomerular Filtration Rate Calc 97 >90 mL/min BUN/Creatinine Ratio 14.7 10.0-20.0 Serum Glucose 294 H 74-106 mg/dL Calcium Level 9.8 8.7-10.4 mg/dL Total Bilirubin 0.2 0.2-1.0 mg/dL Aspartate Amino Transferase (AST) 16 13-40 U/L Alanine Aminotransferase (ALT) 25 7-40 U/L Alkaline Phosphatase 83 46-116 U/L Total Protein 6.7 5.7-8.2 g/dL Albumin 4.3 3.2-4.8 g/dL Assessment/Plan Assessment/Plan Assessment Acute CVA, nonhemorrhagic Hypertension Uncontrolled diabetes mellitus Morbid obesity Plan Admit the patient to [facility] to the hospitalist Follow nephrology recommendations Swallow eval pending Maintenance IV fluids Continue treatment per orders. Plan discussed with: Patient Date of Service: Oct 10, 2024 Billing Provider: HUBER REARDON Common Visit Codes: [id number] INP/OBS CARE (HIGH) HUBER REARDON Oct 10, 2024 21:49
[2024-10-10] MEDS ORDERED: LABETALOL HCL 20 MG/4 ML VL IV PRN (22:15)
[2024-10-10] MEDS ORDERED: ACETAMINOPHEN 325 MG TAB PO PRN (22:15)
[2024-10-10 22:24] VITALS: O2SAT 94
[2024-10-10 22:34] VITALS: BP 138/63; PULSE 77; RESP 18; O2SAT 94
[2024-10-10] MEDS: ONDANSETRON HCL 4 MG/2 ML VIAL IV PRN (23:32)
[2024-10-11] MEDS: ACCU-CHEK COMFORT CURVE STRIP VI SCH ×2 (00:39→12:26)
[2024-10-11] MEDS: InsuLIN REG 1unit/0.01ml Soln (100units/ml) SC SCH ×2 (00:42→12:40)
[2024-10-11 00:53] VITALS: BP 130/71; PULSE 73; O2SAT 99
[2024-10-11] MEDS: KETOROLAC TROMETH 30 MG/ML 1ML VIAL IV ONE (01:38)
[2024-10-11 03:47] VITALS: O2SAT 96
[2024-10-11] MEDS: MORPHINE SULFATE INJ 2 MG/ml SYRG IV ONE ×2 (05:18→12:26)
[2024-10-11 05:30] VITALS: O2SAT 93
[2024-10-11 05:44] LABS: Anion Gap 10 (5-15); Carbon Dioxide 23 mmol/L (20-31); Chloride 107 mmol/L (98-107); Potassium 3.9 mmol/L (3.5-5.1); Sodium 140 mmol/L (136-145)
[2024-10-11 05:45] LABS: Calcium 9.7 mg/dL (8.7-10.4)
[2024-10-11 05:50] LABS: BUN/Creatinine Ratio 15.2 (10.0-20.0); Blood Urea Nitrogen 10 mg/dL (9-23)
[2024-10-11 05:51] LABS: Glucose 192 mg/dL (74-106)
[2024-10-11] MEDS ORDERED: LISINOPRIL 5 MG TAB PO ONE (10:00)
[2024-10-11] MEDS: ASPirin 81 mg TAB PO SCH (10:00)
[2024-10-11] MEDS ORDERED: ATORVASTATIN 20 MG TAB PO ONE (10:00)
[2024-10-11] MEDS ORDERED: DEXTROSE (50%) 50ML SYRG IV PRN (10:00)
[2024-10-11] MEDS: LISINOPRIL 5 MG TAB PO SCH (10:00)
[2024-10-11] MEDS: METOPROLOL SUCCINATE XL 50 MG TAB PO ONE (10:17)
[2024-10-11] MEDS: ENOXAPARIN SOD 40 MG/0.4 ML SYRINGE SC SCH (10:24)
[2024-10-11 10:25] LABS: Benzodiazephine Screen, Urine Neg (NEGATIVE)
[2024-10-11 10:28] LABS: Amphetamine Screen, Urine Neg (NEGATIVE); Barbiturate Scree,Urine Neg (NEGATIVE); Cannabinoid Screen, Urine Neg (NEGATIVE); Cocaine Screen, Urine Neg (NEGATIVE); Opiate Scree,Urine Neg (NEGATIVE); Phencyclidine Screen, Urine Neg (NEGATIVE)
[2024-10-11 10:36] LABS: LDL Cholesterol 38 mg/dL (< 100); Triglycerides 154 mg/dL (< 150)
[2024-10-11 10:37] LABS: Cholesterol 88 mg/dL (< 200)
[2024-10-11 10:43] LABS: HDL Cholesterol 36 mg/dL (40-59)
--- NOTE | 2024-10-11 10:45 | ECG ---
[facility] Test Date: 2024-10-10 Test Time: 16:30:44 Pat Name: ELVIS CONCEPCION Department: ED Room: 0216 Gender: F Hub Lead: johnson : 1960 Requested By: MARY BARNETT Order Number: [id number] Reading MD: Alonzo Aceves Measurements Intervals [place] Rate: 90 P: -1 CO: 167 QRS: -38 QRSD: 85 T: 45 QT: 365 QTc: 447 Interpretive Statements Sinus rhythm Left axis deviation Baseline wander in lead(s) II,aVR Electronically Signed On 10-14-2024 12:50:59 PDT by Alonzo Aceves Please click the below link to view image of tracing.
--- NOTE | 2024-10-11 14:59 | BSKYNEURO ---
[place] [facility] Note # Demographics Consult Type: Acute Stroke Level 1 (0-4.5 hrs) Patient Location: Emergency Room First Name: chelsea Last Name: cody Date of : 1960 Age: 64 Gender: Female Facility: [facility] Time of Initial Page (): 10/10/2024 16:35 Time of Return Call (): 10/10/2024 16:35 # HPI Chief Complaint: - weakness (focal) History: 64 F DM, CVA, CAD around 3 PM presented with L sided weakness and difficulty speaking. She wrote on a piece of paper that she had a stroke in August with L sided weakness but recovered fully and today at 3 PM, she couldn't talk and had recurrent L sided weakness. She endorsed a headache and blurred vision b/l. # Scores Time of exam and NIHSS (): 10/10/2024 17:07 Level of Consciousness 1a: [0] = Alert; keenly responsive LOC Questions 1b: [0] = Answers both questions correctly LOC Commands 1c: [0] = Performs both tasks correctly Best Gaze 2: [0] = Normal Visual 3: [0] = No visual loss Facial Palsy 4: [1] = Minor paralysis Motor Arm Left 5a: [4] = No movement Motor Arm Right 5b: [0] = No drift Motor Leg Left 6a: [4] = No movement Motor Leg Right 6b: [0] = No drift Limb Ataxia 7: [0] = Absent Sensory 8: [1] = [id number] sensory loss Best Language 9: [3] = Mute Dysarthria 10: [2] = Severe dysarthria Extinction and Inattention 11: [0] = No abnormality NIHSS Total: 15 # Exam Vitals: vital signs reviewed SBP: 163 DBP: 82 # PMH-FH-SH Past Medical History: - stroke # Data Head CT: - no bleed - per radiologist read # Assessment Impression: - Stroke Mimic recrudescence of prior stroke vs. new stroke # Plan Thrombolytic/Intervention: Possible IA candidate Thrombolytic Exclusion (< 3 hour window): - stroke within 3 months Possible IA Candidate: - CTA pending Labs: - CBC - comprehensive metabolic panel - hemoglobin A1c - lipid panel - ua - urine drug screen - TSH - troponin - Ammonia Imaging: (urgency: routine): - MRI Brain without contrast Diagnostic Test: - echo with bubble study Therapy/Evaluation: - NPO until swallow evaluation - PT/OT evaluation Medication: - aspirin 81 mg daily - start statin with goal of LDL < 70 DVT Prophylaxis: - SCD Other: - If patient has any neurological deterioration please call me back immediately - telemetry monitoring - I have discussed my recommendations with the referring provider - permissive hypertension - LDL < 70 - would not pursue stroke work-up if MRI is negative Disposition: admit # Logistics Attestation of consult completion: The patient is located at: [facility]. Facility staff participated in the visit. I performed this telemedicine visit from my offsite office utilizing interactive 2 way audio and visual telecommunication technology. Total time spent in telemedicine encounter: I spent 20 minutes reviewing clinical data and/or imaging, obtaining history, examining the patient, communicating with the onsite care team, and in preparation of this report. # Demographics First Name: chelsea Last Name: cody Facility: [facility] Electronically signed at 10/10/2024 17:45 (Yell Time) by Bushra Krishnamurthy MD Yes BUSHRA KRISHNAMURTHY MD Oct 11, 2024 14:59
[2024-10-11] MEDS: CLOPIDOGREL BISULFATE 75 MG TAB PO ONE ×2 (15:15→19:30)
--- NOTE | 2024-10-11 16:37 | DVHPNRES ---
Progress Note Date Seen: Oct 11, 2024 Resident Creating Document: DAVID SEVILLA WENDY Has the PT tested + for MRSA If YES, has PT been informed?: No Medical Necessity Reason Pt with a Central, PICC or Fol: No Subjective Review of Systems 64-year-old female with past medical history of diabetes, hypertension, MD, dyslipidemia, CVA came to the hospital due to left-sided weakness and aphasia. Patient was admitted on 09/05/2024, had ischemic stroke and was given TnKase and subsequently transferred to the higher level of care. Per patient she had partial improvement but since yesterday 3:00 p.m. got suddenly left-sided weakness of upper and lower limb. She has complete motor aphasia, but can comprehend and communicate through writing. Shows severe back pain. Patient denies fever, chest pain, shortness of breath, nausea, vomiting, or any recent bowel and bladder habit changes. PMHx: diabetes, hypertension, MD, dyslipidemia, CVA, history of paroxysmal AFib, dyslipidemia, morbid obesity, catalepsy, narcolepsy, obstructive sleep apnea (on CPAP), degenerative disc disease with prolapse disc PSHx: Appendectomy, cholecystectomy, hernia repair, not for VATS fine laminectomy, cervical spine surgery, left shoulder surgery, right ankle fracture repair, spinal stimulator insertion Family history: Significant for diabetes and cancer Social history: Denies smoking or any other drug use, lives alone at home Home medication: Lantus 45 units at a.m. and 45 units p.m., lispro according to sliding scale, lisinopril, statin, Allergic history: Indomethacin, sulfa antibiotic, sulfa drugs Patient seen and examined at the bedside patient is lying on the bed and complained of severe back pain. Patient has complete left sided. Patient does complete aphasia and communicated through writing. Patient reports: No new complaints, Feels better Changes from previous H/P or p: No Changes Objective vital signs Vital Sign Date Time Temp Pulse Resp B/P (MAP) Pulse Ox O2 Delivery O2 Flow Rate FiO2 10/11/24 14:00 79 16 136/68 (90) 95 10/11/24 08:00 98.4 98.4 10/11/24 05:30 Room Air 0.0 10/11/24 05:30 21 Total Intake and Output 10/10/24 10/10/24 10/11/24 15:00 23:00 07:00 Output Total 900 ml Balance -900 ml medications Current Medications Medications Dose Ordered Sig/Feng Route Start Time Stop Time Status Last Admin Dose Admin Ondansetron HCl 4 mg Q4HP PRN IV 10/10/24 21:45 10/10/24 23:32 4 MG Enoxaparin Sodium 40 mg DAILY SC 10/11/24 10:00 10/11/24 10:24 40 MG Aspirin 81 mg DAILY PO 10/11/24 10:00 Acetaminophen 650 mg Q6HPRN PRN PO 10/10/24 22:15 Labetalol HCl 10 mg [id number] PRN IV 10/10/24 22:15 Diagnostic Test (Pha) 1 strip IQ4HR 10/11/24 12:00 10/11/24 12:26 1 STRIP Insulin Human Regular IQ4HR SC 10/11/24 12:00 10/11/24 12:40 3 UNITS Dextrose 50 ml UD PRN IV 10/11/24 10:00 Atorvastatin Calcium 80 mg HS PO 10/11/24 22:00 Lisinopril 10 mg DAILY PO 10/11/24 10:00 Morphine Sulfate 1 mg Q4HP PRN IV 10/11/24 11:30 Clopidogrel Bisulfate 75 mg DAILY PO 10/12/24 10:00 Examination General Appearance: Alert, Oriented X3, Cooperative, has severe back pain HEENT: Atraumatic, PERRLA, EOMI, Mucous membrane moist/pink Respiratory: Clear to auscultation, Normal air movement Cardiovascular: Regular rate, Normal S1, Normal S2, No murmurs, no chest wall tenderness Abdominal: Normal bowel sounds, Soft, No tenderness, No hepatospenomegaly, No masses Extremities: No clubbing, No cyanosis, No edema, Normal pulses, No tenderness/swelling Skin: No rashes, No breakdown, No significant lesion Neuro: Complete motor aphasia, power 0/5 on the left upper and lower limb Psych/Mental Status: Mental status NL, Mood NL laboratory and microbiology Laboratory Tests 10/11/24 05:05 10/10/24 16:20 Test 10/11/24 05:05 Range/Units Serum Glucose 192 H 74-106 mg/dL Labs and/or images reviewed: Labs reviewed by me, Image(s) reviewed by me Problem List/Assessment/Plan Problem List/Assessment/Plan Recurrent ischemic stroke History of coronary artery disease Dyslipidemia Hypertension CT scan shows no intracranial abnormalities Neurology consulted, recommended medical management Blue sebastián neurology consulted recommended brain MRI and medical management at the moment Aspirin Clopidogrel Continue home meds Diabetes type 2 with hyperglycemia Insulin according moderate sliding scale Insulin Lantus Narcolepsy Cataplexy Obstructive sleep apnea CPAP during the night DIET: NPO DVT PROPHYLAXIS: Lovenox GI PROPHYLAXIS:: Protonix CODE STATUS: Goal of care discussed for more than 18 minutes, full code DISPOSITION: Telemetry Patient's status and plan discussed with the patient the patient's daughter through the phone. Case discussed with Dr. Reeves. Plan discussed with: Patient, Daughter, Other (RN) My Orders My Orders Orders - DAVID SEVILLA Procedure Category Date Status Time * Swallow Request ST 10/11/24 Transmitted 09:50 Glucose Blood PHA 10/11/24 In Process (Accu-Chek Comfort 12:00 Insulin R (Human) PHA 10/11/24 In Process (Insulin R) 12:00 Dextrose 50% Syringe PHA 10/11/24 In Process 10:00 Atorvastatin (Lipitor) PHA 10/11/24 In Process 22:00 Lisinopril Tablet PHA 10/11/24 In Process (Zestril Tablet) 10:00 Morphine Sulfate PHA 10/11/24 In Process Injection 11:30 Clopidogrel Bisulfate PHA 10/12/24 In Process (Plavix) 10:00 Date of Service: Oct 11, 2024 Billing Provider: WALTER JACKSON MD Common Visit Codes: [id number] INP/OBS CARE(HIGH) DAVID SEVILLA RESDIENT Oct 11, 2024 16:36 WALTER JACKSON MD Oct 14, 2024 00:51
[2024-10-11] MEDS: MORPHINE SULFATE INJ 2 MG/ml SYRG IV PRN (18:32)
[2024-10-11] MEDS: LIDOCAINE VISCOUS 2% 15ML UD MT ONE ×2 (18:33→19:30)
[2024-10-11 19:00] VITALS: PULSE 77; RESP 18; O2SAT 94
[2024-10-11] MEDS ORDERED: ATORVASTATIN 20 MG TAB NG SCH (19:30)
[2024-10-11] MEDS: ASPirin 325 MG TAB PO ONE (19:30)
[2024-10-11] MEDS: ATORVASTATIN 20 MG TAB PO ONE (19:30)
--- NOTE | 2024-10-11 19:43 | DVH ---
CHEST RADIOGRAPH Indication: NG TUBE PLACEMENT Technique: Single frontal view of the chest was obtained COMPARISON: XY CHEST XRAY 1 VIEW on DOS: 10/10/24, XY CHEST XRAY 1 VIEW on DOS: 08/27/24, XY CHEST PRATIK BLE on DOS: 08/17/24, XY CHEST PORTABLE on DOS: 08/13/24, XY CHEST XRAY 1 VIEW on DOS: 05/14/24 FINDINGS: Lines and Tubes: Nasogastric tube appears to course below the diaphragm with tip not clearly visualiz ed. Lungs: Bibasilar opacities may reflect atelectasis or mild pneumonia. Pleura: No effusion. No pneumothorax. Cardiomediastinal contours: Cardiomegaly. Bones: Unremarkable IMPRESSION: 1. Nasogastric tube appears to course below the diaphragm with tip not clearly visualized. 2. Bibasilar opacities may reflect atelectasis or mild pneumonia.
--- NOTE | 2024-10-11 20:32 | DVH ---
EXAM: CT HEAD WITHOUT CONTRAST INDICATION: cva TECHNIQUE: CT of the head without intravenous contrast. Radiation Dose Information: CT Dose: CTDI volume is 63.69 mGy. Dose-length product is 1127.49 mGy*cm The dose indicators for CT are the volume Computed Tomography (CT) Dose Index (CTDIvol) and the Dose Length Product (DLP), and are measured in units of mGy and mGy-cm, respectively. These indicators are not patient dose, but values generated from the CT scanner acquisition factors. The report includes radiation exposure data for exposures received during this examination. COMPARISON: CT STROKE CTH on DOS: 10/10/24, CT HEAD WITHOUT CONTRAST on DOS: 08/17/24, CT HEAD WITHOUT CONTRAST on DOS: 05/14/24 FINDINGS: There is no evidence of acute intracranial hemorrhage, extra-axial collection, mass effect, midline s hift, herniation or hydrocephalus. Tube through the left nostril. The ventricles, sulci and cisterns are age appropriate. The fang-white differentiation is intact. Patchy periventricular and subcortical white matter hypoattenuation is nonspecific but may be related to small vessel ischemic disease. The visualized paranasal sinuses and mastoid air cells are clear. The surrounding soft tissues and osseous structures are unremarkable. IMPRESSION: 1. No acute intracranial abnormality. 2. No significant change from 08/17/2024.
--- NOTE | 2024-10-11 20:59 | DVHPN2 ---
Progress Note - Dictate Date Seen: Oct 11, 2024 Has the PT tested + for MRSA If YES, has PT been informed?: No Medical Necessity Reason Pt with a Central, PICC or Fol: No Subjective Ms. Anthony is a 64 years old right-handed female with a history of hypertension, diabetes, dyslipidemia, coronary artery disease, heart attack, obesity, sleep apnea on CPAP, chronic low back pain, diverticulitis, she came to the hospital on 10/10/24 with a chief company of acute stroke syndrome I have seen and examined the patient, I have discussed with her nurse, tele stroke consultation reports appreciated She was doing better than yesterday, alert, fully oriented, able to write, read, she was able to move the left toes and fingers She was still can not vocalize She reports that APAP caused headache She asked me to prescribe her morphine 2 mg Nurse reported that 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 Urinalysis, 10/10/2024: Unremarkable CBC, 09/05/2024: Unremarkable, 10/10/2024: Unremarkable CMP, 09/05/2024: Unremarkable, 10/10/2024: Unremarkable TG/HDL/LDL/HDL, 10/04/2024: 136/124/69/40, 10/11/2024: 154/88/38/36 Vitamin B12, 05/2024: 978 Folic acid, 05/2024: 33.34 TSH, 10/04/24: 0.8 Echocardiogram, 09/05/2024: MILD LVH AND MILD LV DIASTOLIC DYSFUNCTION LV EJECTION IS 65% POSTERIOR MV CALCIFIED AORTIC VALVE CALCIFIED AND DECREASED OPENING PEAK GRADIENT ACROSS AORTIC VALVE IS 44 MM OF HG AND MEAN GRADIENT IS 25 MM OF HG AORTIC VALVE AREA IS 1.1 CM SQUARE MODERATE DEGREE AORTIC REGURGITATION MODERATE DEGREE AORTIC STENOSIS NO EFFUSION Carotid Doppler, 08/17/2024: No hemodynamically significant stenosis noted in right and left carotid system. CT head, 09/05/2024: 1. No acute intracranial process. 2. Chronic microvascular ischemic changes and old bilateral basal ganglia lacunar infarcts CT head, 10/10/2024: No acute intracranial abnormality CT head, 10/11/2024: 1. No acute intracranial abnormality. 2. No significant change from 08/17/2024. CTA head, neck, 09/05/2024: No large vessel occlusion or high-grade stenosis in the arteries of the head and neck. No aneurysm is identified vital signs Vital Sign Date Time Temp Pulse Resp B/P (MAP) Pulse Ox O2 Delivery O2 Flow Rate FiO2 10/11/24 20:00 100 10/11/24 19:09 16 126/70 10/11/24 18:00 98.4 92 98.4 10/11/24 05:30 Room Air 0.0 10/11/24 05:30 21 Total Intake and Output 10/10/24 10/10/24 10/11/24 15:00 23:00 07:00 Intake Total 80 ml Output Total 900 ml Balance -820 ml medications Current Medications Medications Dose Ordered Sig/Feng Route Start Time Stop Time Status Last Admin Dose Admin Ondansetron HCl 4 mg Q4HP PRN IV 10/10/24 21:45 10/10/24 23:32 4 MG Enoxaparin Sodium 40 mg DAILY SC 10/11/24 10:00 10/11/24 10:24 40 MG Acetaminophen 650 mg Q6HPRN PRN PO 10/10/24 22:15 Labetalol HCl 10 mg [id number] PRN IV 10/10/24 22:15 Diagnostic Test (Pha) 1 strip IQ4HR 10/11/24 12:00 10/11/24 16:00 1 STRIP Insulin Human Regular IQ4HR SC 10/11/24 12:00 10/11/24 18:37 3 UNITS Dextrose 50 ml UD PRN IV 10/11/24 10:00 Morphine Sulfate 1 mg Q4HP PRN IV 10/11/24 11:30 10/11/24 18:32 1 MG Aspirin 81 mg DAILY NG 10/11/24 19:30 Atorvastatin Calcium 80 mg STAT NG 10/11/24 19:30 Clopidogrel Bisulfate 75 mg DAILY NG 10/11/24 19:30 Lisinopril 10 mg DAILY NG 10/11/24 19:30 Patient Own Medication 2 DAILY PO 10/12/24 10:00 UNV objective General: the patient is well developed and nourished. No acute distress. MENTAL STATUS: Subjective SPEECH, LANGUAGE, HIGHER CORTICAL FUNCTION: She understands, she can write, read, but not able to vocalize CRANIAL NERVES: Pupils are equal, round and reactive. EOMs full and conjugate. No nystagmus. Facial sensation intact in all three divisions bilaterally. Mandibular strength intact. Facial muscles symmetrical and strength intact. SENSATION: Sensation to touch and pinprick is diminished in the left arm, leg MOTOR: Normal tone in the upper and lower extremity. Normal muscle bulk. No fasciculations. No abnormal movements or posturing. Muscle strength of the major groups in the right extremities is 5/5. Muscle strength of the major groups in the left extremities is: 0/5 except for wiggling the toes in the fingers REFLEXES: Deep tendon reflexes normal and symmetrical. No pathological reflexes. CEREBELLAR/COORDINATION: No ataxia in the right-handed GAIT/STATION: deferred laboratory and microbiology Laboratory Tests 10/11/24 05:05 10/10/24 16:20 Test 10/11/24 05:05 Range/Units Serum Glucose 192 H 74-106 mg/dL Problem List Acute stroke syndrome with aphasia, left-sided hemiplegia, Stroke on 09/05/2024, status post IV thrombolytic treatment Stroke on 09/15/2024 Obesity Sleep apnea on CPAP Assessment/Plan Monitoring Supportive treatment Telemetry Speech pathology Stabilize vitals Stabilize blood pressure Avoid fever with Tylenol Aspirin 81 mg daily APAP in the hospital Tube feeding Secondary stroke prevention, stroke risk fact discussed This medical document was created using an electronic medical record system with Pose dictation system. Although this document has been carefully reviewed, there may still be some phonetic and typographical errors. These areas are purely typographical due to imperfections of the software programs, and do not reflect any compromise in the patient's medical care. Prognosis poor Plan discussed with: Patient, Other Total Time (mins): 40 VALENTIN ESTEVEZ MD Oct 11, 2024 20:59
[2024-10-11] MEDS: LISINOPRIL 5 MG TAB NG SCH (21:53)
[2024-10-11] MEDS: CLOPIDOGREL BISULFATE 75 MG TAB NG SCH (21:53)
[2024-10-11] MEDS: ASPirin 81 mg TAB NG SCH (21:54)
[2024-10-12] VITALS (7 sets, daily range): BP systolic 113–133; BP diastolic 51–92; PULSE 72–92; RESP 16–20; TEMP 97–98.1; O2SAT 94–96
--- NOTE | 2024-10-12 07:16 | DVHPNRES ---
Progress Note Date Seen: Oct 12, 2024 Resident Creating Document: DAVID SEVILLA WENDY Has the PT tested + for MRSA If YES, has PT been informed?: No Medical Necessity Reason Pt with a Central, PICC or Fol: No Subjective Review of Systems Patient seen and examined at the bedside. Patient is feeling better since admission. Patient can speak. On repeat CT scan showed no significant changes. Brain MRI was recommended but per blue sebastián, due to spinal stimulator insertion, MRI can not be performed. Patient reports: No new complaints, Feels better Objective vital signs Vital Sign Date Time Temp Pulse Resp B/P (MAP) Pulse Ox O2 Delivery O2 Flow Rate FiO2 10/12/24 05:38 70 16 108/72 10/12/24 05:00 97.0 95 97.0 10/12/24 03:51 Room Air* 0 21 Total Intake and Output 10/11/24 10/11/24 10/12/24 15:00 23:00 07:00 Intake Total 240 ml 0 ml Balance 240 ml 0 ml medications Current Medications Medications Dose Ordered Sig/Feng Route Start Time Stop Time Status Last Admin Dose Admin Ondansetron HCl 4 mg Q4HP PRN IV 10/10/24 21:45 10/10/24 23:32 4 MG Enoxaparin Sodium 40 mg DAILY SC 10/11/24 10:00 10/11/24 10:24 40 MG Acetaminophen 650 mg Q6HPRN PRN PO 10/10/24 22:15 Labetalol HCl 10 mg [id number] PRN IV 10/10/24 22:15 Diagnostic Test (Pha) 1 strip IQ4HR 10/11/24 12:00 10/12/24 04:00 1 STRIP Insulin Human Regular IQ4HR SC 10/11/24 12:00 10/12/24 04:00 3 UNITS Dextrose 50 ml UD PRN IV 10/11/24 10:00 Morphine Sulfate 1 mg Q4HP PRN IV 10/11/24 11:30 10/12/24 05:08 1 MG Aspirin 81 mg DAILY NG 10/11/24 19:30 10/11/24 21:54 81 MG Atorvastatin Calcium 80 mg STAT NG 10/11/24 19:30 Clopidogrel Bisulfate 75 mg DAILY NG 10/11/24 19:30 10/11/24 21:53 75 MG Lisinopril 10 mg DAILY NG 10/11/24 19:30 10/11/24 21:53 10 MG Patient Own Medication 2 DAILY PO 10/12/24 10:00 UNV Examination General Appearance: Alert, Oriented X3, Cooperative, No acute distress HEENT: Atraumatic, PERRLA, EOMI, Mucous membrane moist/pink Respiratory: Clear to auscultation, Normal air movement Cardiovascular: Regular rate, Normal S1, Normal S2, No murmurs, no chest wall tenderness Abdominal: Normal bowel sounds, Soft, No tenderness, No hepatospenomegaly, No masses Extremities: No clubbing, No cyanosis, No edema, Normal pulses, No tenderness/swelling Skin: No rashes, No breakdown, No significant lesion Neuro: Left-sided upper limb power 4/5, left lower limb 3/5 Psych/Mental Status: Mental status NL, Mood NL laboratory and microbiology Laboratory Tests 10/11/24 05:05 10/10/24 16:20 Test 10/11/24 05:05 Range/Units Serum Glucose 192 H 74-106 mg/dL Labs and/or images reviewed: Labs reviewed by me, Image(s) reviewed by me Problem List/Assessment/Plan Problem List/Assessment/Plan Recurrent ischemic stroke Left-sided hemiplegia, due to ischemic stroke Aphasia, due to left-sided stroke History of coronary artery disease Dyslipidemia Hypertension CT scan from 10/11/2019 shows no intracranial abnormalities a repeat CT scan on 10/11/2024 showed no change, brain MRI could not performed due to has a spinal stimulator insertion Neurology consulted, recommended medical management [facility] neurology consulted recommended brain MRI and medical management at the moment Aspirin Clopidogrel Continue home meds Physiotherapy Diabetes type 2 with hyperglycemia Insulin according moderate sliding scale Insulin Lantus Narcolepsy Cataplexy Obstructive sleep apnea CPAP during the night Continue home med Morbid obesity DIET: Diabetic diet DVT PROPHYLAXIS: Lovenox GI PROPHYLAXIS:: Protonix CODE STATUS: Goal of care discussed for more than 18 minutes, full code DISPOSITION: Telemetry Per PT evaluation, the patient needs SNF placement for rehabilitation. Patient's status and plan discussed with the patient the patient's daughter at bedside. Case discussed with Dr. Reeves. Plan discussed with: Patient, Other (RN) My Orders My Orders Orders - DAVID SEVILLA RESJOSEPH Procedure Category Date Status Time * Swallow Request ST 10/11/24 Transmitted 09:50 Glucose Blood PHA 10/11/24 In Process (Accu-Chek Comfort 12:00 Insulin R (Human) PHA 10/11/24 In Process (Insulin R) 12:00 Dextrose 50% Syringe PHA 10/11/24 In Process 10:00 Morphine Sulfate PHA 10/11/24 In Process Injection 11:30 Echo 2d Mode Cardiac US 10/11/24 Logged DOP 16:08 Brain Head Wo Contrast MRI 10/11/24 Logged 16:[address] Ng ORDERS 10/11/24 Transmitted 16:37 Comprehensive LAB 10/12/24 Logged Metabolic Panel 04:00 Complete Blood Count LAB 10/12/24 Logged 04:00 Transfer Orders XFER 10/11/24 Transmitted 17:37 Chest Xray 1 View XY 10/11/24 Resulted 18:29 Clear Liq Diet DIET 10/12/24 Transmitted Breakfast Aspirin Tablet PHA 10/11/24 In Process 19:30 Clopidogrel Bisulfate PHA 10/11/24 In Process (Plavix) 19:30 Lisinopril Tablet PHA 10/11/24 In Process (Zestril Tablet) 19:30 Patients Own PHA 10/12/24 Pending Medication 10:00 Atorvastatin (Lipitor) PHA 10/11/24 In Process 19:30 Pt Request For Service PT 10/12/24 Logged 06:43 Date of Service: Oct 12, 2024 Billing Provider: WALTER JACKSON MD Common Visit Codes: [id number] INP/OBS CARE(HIGH) DAVID SEVILLA RESDIENT Oct 12, 2024 07:16 WALTER JACKSON MD Oct 14, 2024 00:56
[2024-10-12] MEDS ORDERED: CLOPIDOGREL BISULFATE 75 MG TAB PO SCH (10:00)
[2024-10-12] MEDS: [UNRECOGNIZED DRUG - OTHER] PO SCH (10:00)
[2024-10-12 10:13] LABS: Basophils # (auto) 0.1 10 ^3/uL (0-0.2); Basophils % (auto) 0.8 % (0.0-2.0); Eosinophils # (auto) 0.2 10 ^3/uL (0-0.8); Eosinophils % (auto) 2.7 % (0.0-7.0); Hematocrit 42.6 % (36.0-46.0); Hemoglobin 14.1 g/dL (12.2-16.2); Lymphocytes # (auto) 1.9 10 ^3/uL (0.4-5.4); Monocytes # (auto) 0.4 10 ^3/uL (0-1.3); Monocytes % (auto) 6.2 % (0.0-12.0); Neutrophils % (auto) 61.3 % (37.0-80.0); Platelet Count (auto) 237 10^3/uL (140-450); Red Blood Cells 5.01 10^6/uL (4.0-5.20); Red Cell Distribution Width 15.3 % (11.8-14.3); White Blood Cell 6.5 10^3/uL (4.4-10.8)
[2024-10-12 10:20] LABS: Alanine Aminotransferase 31 U/L (7-40); Albumin 4.2 g/dL (3.2-4.8); Alkaline Phosphatase 75 U/L (46-116); Anion Gap 10 (5-15); Aspartate Aminotransferase 26 U/L (13-40); BUN/Creatinine Ratio 17.5 (10.0-20.0); Blood Urea Nitrogen 11 mg/dL (9-23); Calcium 9.6 mg/dL (8.7-10.4); Carbon Dioxide 23 mmol/L (20-31); Chloride 105 mmol/L (98-107); Potassium 3.9 mmol/L (3.5-5.1); Sodium 138 mmol/L (136-145); Total Protein 6.7 g/dL (5.7-8.2)
[2024-10-12 10:21] LABS: Bilirubin, Total 0.4 mg/dL (0.2-1.0)
[2024-10-12 10:22] LABS: Glucose 215 mg/dL (74-106)
[2024-10-12] MEDS ORDERED: ATORVASTATIN 20 MG TAB PO SCH (22:00)
--- NOTE | 2024-10-12 23:49 | DVHPN2 ---
Progress Note - Dictate Date Seen: Oct 12, 2024 Has the PT tested + for MRSA If YES, has PT been informed?: No Medical Necessity Reason Pt with a Central, PICC or Fol: No Subjective Ms. Anthony is a 64 years old right-handed female with a history of hypertension, diabetes, dyslipidemia, coronary artery disease, heart attack, obesity, sleep apnea on CPAP, chronic low back pain, diverticulitis, she came to the hospital on 10/10/24 with a chief company of acute stroke syndrome I have seen and examined the patient, I have discussed with her nurse She was major improvement today, she was awake, oriented x4, her language functions normal, she walked with physical therapist earlier today Urinalysis, 10/10/2024: Unremarkable CBC, 09/05/2024: Unremarkable, 10/10/2024: Unremarkable CMP, 09/05/2024: Unremarkable, 10/10/2024: Unremarkable TG/HDL/LDL/HDL, 10/04/2024: 136/124/69/40, 10/11/2024: 154/88/38/36 Vitamin B12, 05/2024: 978 Folic acid, 05/2024: 33.34 TSH, 10/04/24: 0.8 Echocardiogram, 09/05/2024: MILD LVH AND MILD LV DIASTOLIC DYSFUNCTION LV EJECTION IS 65% POSTERIOR MV CALCIFIED AORTIC VALVE CALCIFIED AND DECREASED OPENING PEAK GRADIENT ACROSS AORTIC VALVE IS 44 MM OF HG AND MEAN GRADIENT IS 25 MM OF HG AORTIC VALVE AREA IS 1.1 CM SQUARE MODERATE DEGREE AORTIC REGURGITATION MODERATE DEGREE AORTIC STENOSIS NO EFFUSION Carotid Doppler, 08/17/2024: No hemodynamically significant stenosis noted in right and left carotid system. CT head, 09/05/2024: 1. No acute intracranial process. 2. Chronic microvascular ischemic changes and old bilateral basal ganglia lacunar infarcts CT head, 10/10/2024: No acute intracranial abnormality CT head, 10/11/2024: 1. No acute intracranial abnormality. 2. No significant change from 08/17/2024. CTA head, neck, 09/05/2024: No large vessel occlusion or high-grade stenosis in the arteries of the head and neck. No aneurysm is identified vital signs Vital Sign Date Time Temp Pulse Resp B/P (MAP) Pulse Ox O2 Delivery O2 Flow Rate FiO2 10/12/24 21:09 88 20 122/92 10/12/24 20:41 98.1 94 98.1 10/12/24 07:51 Room Air* 0 21 Total Intake and Output 10/11/24 10/11/24 10/12/24 15:00 23:00 07:00 Intake Total 240 ml 0 ml Balance 240 ml 0 ml medications Current Medications Medications Dose Ordered Sig/Feng Route Start Time Stop Time Status Last Admin Dose Admin Ondansetron HCl 4 mg Q4HP PRN IV 10/10/24 21:45 10/10/24 23:32 4 MG Enoxaparin Sodium 40 mg DAILY SC 10/11/24 10:00 10/12/24 08:41 40 MG Acetaminophen 650 mg Q6HPRN PRN PO 10/10/24 22:15 Labetalol HCl 10 mg [id number] PRN IV 10/10/24 22:15 Diagnostic Test (Pha) 1 strip IQ4HR 10/11/24 12:00 10/12/24 20:00 1 STRIP Insulin Human Regular IQ4HR SC 10/11/24 12:00 10/12/24 21:07 6 UNITS Dextrose 50 ml UD PRN IV 10/11/24 10:00 Morphine Sulfate 1 mg Q4HP PRN IV 10/11/24 11:30 10/12/24 21:09 1 MG Aspirin 81 mg DAILY NG 10/11/24 19:30 10/12/24 08:41 81 MG Atorvastatin Calcium 80 mg STAT NG 10/11/24 19:30 Clopidogrel Bisulfate 75 mg DAILY NG 10/11/24 19:30 10/12/24 08:41 75 MG Lisinopril 10 mg DAILY NG 10/11/24 19:30 10/12/24 08:48 10 MG Patient Own Medication 2 DAILY PO 10/12/24 10:00 objective General: the patient is well developed and nourished. No acute distress. MENTAL STATUS: Subjective SPEECH, LANGUAGE, HIGHER CORTICAL FUNCTION: She understands, she can write, read, but not able to vocalize CRANIAL NERVES: Pupils are equal, round and reactive. EOMs full and conjugate. No nystagmus. Facial sensation intact in all three divisions bilaterally. Mandibular strength intact. Facial muscles symmetrical and strength intact. SENSATION: Sensation to touch and pinprick is diminished in the left arm, leg MOTOR: Normal tone in the upper and lower extremity. Normal muscle bulk. No fasciculations. No abnormal movements or posturing. Muscle strength of the major groups in the right extremities is 5/5. Muscle strength of the major groups in the left extremities is: Upper extremity: 4/5, lower extremity: 3/5 REFLEXES: Deep tendon reflexes normal and symmetrical. No pathological reflexes. CEREBELLAR/COORDINATION: No ataxia in both hands GAIT/STATION: deferred laboratory and microbiology Laboratory Tests 10/12/24 09:40 Test 10/12/24 09:40 Range/Units Serum Glucose 215 H 74-106 mg/dL Problem List Acute stroke syndrome with aphasia, left-sided hemiplegia, Stroke on 09/05/2024, status post IV thrombolytic treatment Stroke on 09/15/2024 Obesity Sleep apnea on CPAP Assessment/Plan Monitoring Supportive treatment Telemetry Speech pathology Stabilize vitals Stabilize blood pressure Avoid fever with Tylenol Aspirin 81 mg daily APAP in the hospital Physical therapy Secondary stroke prevention, stroke risk fact discussed This medical document was created using an electronic medical record system with [employer] computerized dictation system. Although this document has been carefully reviewed, there may still be some phonetic and typographical errors. These areas are purely typographical due to imperfections of the software programs, and do not reflect any compromise in the patient's medical care. Prognosis poor Dietary Evaluation Review Comments: CCHO-60 diet Expected Outcomes/Goals: gradual wt loss, controlled DM Plan discussed with: Patient, Other VALENTIN ESTEVEZ MD Oct 12, 2024 23:49
[2024-10-13] VITALS (8 sets, daily range): BP systolic 102–131; BP diastolic 48–72; PULSE 69–90; RESP 17–20; TEMP 97.7–98.2; O2SAT 92–98
[2024-10-13 06:35] LABS: Basophils # (auto) 0 10 ^3/uL (0-0.2); Basophils % (auto) 0.8 % (0.0-2.0); Eosinophils # (auto) 0.2 10 ^3/uL (0-0.8); Eosinophils % (auto) 3.9 % (0.0-7.0); Hematocrit 39.8 % (36.0-46.0); Hemoglobin 13.4 g/dL (12.2-16.2); Lymphocytes # (auto) 1.5 10 ^3/uL (0.4-5.4); Lymphocytes % (auto) 30.9 % (10.0-50.0); Mean Corpuscular Hemoglobin 27.9 pg (28.0-32.0); Mean Corpuscular Hgb Conc. 33.7 g/dL (32.0-36.0); Mean Corpuscular Volume 82.6 fL (80.0-100.0); Monocytes # (auto) 0.4 10 ^3/uL (0-1.3); Monocytes % (auto) 8.6 % (0.0-12.0); Neutrophils # (auto) 2.8 10 ^3/uL (1.6-8.6); Neutrophils % (auto) 55.8 % (37.0-80.0); Nucleated Red Blood Cells % 0.2 %; Platelet Count (auto) 210 10^3/uL (140-450); Red Blood Cells 4.82 10^6/uL (4.0-5.20); Red Cell Distribution Width 14.5 % (11.8-14.3)
[2024-10-13 06:53] LABS: Alanine Aminotransferase 28 U/L (7-40); Alkaline Phosphatase 73 U/L (46-116); Anion Gap 10 (5-15); Aspartate Aminotransferase 18 U/L (13-40); BUN/Creatinine Ratio 10.7 (10.0-20.0); Calcium 9.7 mg/dL (8.7-10.4); Carbon Dioxide 22 mmol/L (20-31); Chloride 107 mmol/L (98-107); Sodium 139 mmol/L (136-145); Total Protein 6.4 g/dL (5.7-8.2)
[2024-10-13 06:54] LABS: Bilirubin, Total 0.4 mg/dL (0.2-1.0)
[2024-10-13 07:04] LABS: Blood Urea Nitrogen 6 mg/dL (9-23); Glucose 183 mg/dL (74-106); Potassium 3.5 mmol/L (3.5-5.1)
[2024-10-13] MEDS ORDERED: HYDROMORPHONE HCL 1 MG/ML INJ IV PRN (10:45)
[2024-10-13] MEDS: HYDROmorphone HCL 2 MG/ML VL/or syr IV PRN (11:08)
--- NOTE | 2024-10-13 18:54 | DVHPNRES ---
Progress Note Date Seen: Oct 13, 2024 Resident Creating Document: DAVID SEVILLA WENDY Has the PT tested + for MRSA If YES, has PT been informed?: No Medical Necessity Reason Pt with a Central, PICC or Fol: No Subjective Review of Systems Patient seen and examined at the bedside. Patient is feeling better since admission. Objective vital signs Vital Sign Date Time Temp Pulse Resp B/P (MAP) Pulse Ox O2 Delivery O2 Flow Rate FiO2 10/13/24 17:55 67 18 106/52 10/13/24 17:00 98.0 94 98.0 10/13/24 08:00 Room Air* 0 21 Total Intake and Output 10/12/24 10/12/24 10/13/24 15:00 23:00 07:00 Intake Total 1198 ml 1200 ml Output Total 800 ml 1875 ml Balance 398 ml -675 ml medications Current Medications Medications Dose Ordered Sig/Feng Route Start Time Stop Time Status Last Admin Dose Admin Ondansetron HCl 4 mg Q4HP PRN IV 10/10/24 21:45 10/13/24 17:21 4 MG Enoxaparin Sodium 40 mg DAILY SC 10/11/24 10:00 10/13/24 09:20 40 MG Acetaminophen 650 mg Q6HPRN PRN PO 10/10/24 22:15 Labetalol HCl 10 mg [id number] PRN IV 10/10/24 22:15 Diagnostic Test (Pha) 1 strip IQ4HR 10/11/24 12:00 10/13/24 16:00 1 STRIP Insulin Human Regular IQ4HR SC 10/11/24 12:00 10/13/24 17:20 3 UNITS Dextrose 50 ml UD PRN IV 10/11/24 10:00 Aspirin 81 mg DAILY NG 10/11/24 19:30 10/13/24 09:18 81 MG Atorvastatin Calcium 80 mg STAT NG 10/11/24 19:30 Clopidogrel Bisulfate 75 mg DAILY NG 10/11/24 19:30 10/13/24 09:19 75 MG Lisinopril 10 mg DAILY NG 10/11/24 19:30 10/13/24 09:19 10 MG Patient Own Medication 2 DAILY PO 10/12/24 10:00 Hydromorphone HCl 0.25 mg Q4HPRN PRN IV 4/22/25 11:00 10/13/24 17:25 0.25 MG Insulin Glargine 40 units BID@0700,2200 SC 10/13/24 22:00 Examination General Appearance: Alert, Oriented X3, Cooperative, No acute distress HEENT: Atraumatic, PERRLA, EOMI, Mucous membrane moist/pink Respiratory: Clear to auscultation, Normal air movement Cardiovascular: Regular rate, Normal S1, Normal S2, No murmurs, no chest wall tenderness Abdominal: Normal bowel sounds, Soft, No tenderness, No hepatospenomegaly, No masses Extremities: No clubbing, No cyanosis, No edema, Normal pulses, No tenderness/swelling Skin: No rashes, No breakdown, No significant lesion Neuro: Left-sided upper limb power 4/5, left lower limb 3/5 Psych/Mental Status: Mental status NL, Mood NL laboratory and microbiology Laboratory Tests 10/13/24 05:58 Test 10/13/24 05:58 Range/Units Serum Glucose 183 H 74-106 mg/dL Labs and/or images reviewed: Labs reviewed by me, Image(s) reviewed by me Problem List/Assessment/Plan Problem List/Assessment/Plan Recurrent ischemic stroke Left-sided hemiplegia, due to ischemic stroke Aphasia, due to left-sided stroke History of coronary artery disease Dyslipidemia Hypertension CT scan from 10/11/2019 shows no intracranial abnormalities a repeat CT scan on 10/11/2024 showed no change, brain MRI could not performed due to has a spinal stimulator insertion Neurology consulted, recommended medical management [facility] sebastián neurology consulted recommended brain MRI and medical management at the moment Aspirin Clopidogrel Continue home meds Physiotherapy Diabetes type 2 with hyperglycemia Insulin according moderate sliding scale Insulin Lantus Narcolepsy Cataplexy Obstructive sleep apnea CPAP during the night Continue home med Morbid obesity DIET: Diabetic diet DVT PROPHYLAXIS: Lovenox GI PROPHYLAXIS:: Protonix CODE STATUS: Goal of care discussed for more than 18 minutes, full code DISPOSITION: Telemetry Per PT evaluation, the patient needs SNF placement for rehabilitation. Patient's status and plan discussed with the patient the patient's daughter at bedside. Case discussed with Dr. Reeves. Plan discussed with: Patient, Daughter, Other (RN) Dietary Evaluation Review Comments: CCHO-60 diet Expected Outcomes/Goals: gradual wt loss, controlled DM Date of Service: Oct 13, 2024 Billing Provider: WALTER JACKSON MD Common Visit Codes: [id number] INP/OBS CARE(HIGH) DAVID SEVILLA Oct 13, 2024 18:54 WALTER JACKSON MD Oct 14, 2024 00:42
[2024-10-13] MEDS: INSULIN LANTUS (GLARGINE) 1 /0.01ml (100units/ml) SC SCH (21:03)
--- NOTE | 2024-10-13 22:56 | DVHPN2 ---
Progress Note - Dictate Date Seen: Oct 13, 2024 Has the PT tested + for MRSA If YES, has PT been informed?: No Medical Necessity Reason Pt with a Central, PICC or Fol: No Subjective Ms. Anthony is a 64 years old right-handed female with a history of hypertension, diabetes, dyslipidemia, coronary artery disease, heart attack, obesity, sleep apnea on CPAP, chronic low back pain, diverticulitis, she came to the hospital on 10/10/24 with a chief company of acute stroke syndrome I have seen and examined the patient, I have discussed with her nurse She was major improvement today, she was awake, oriented x4, her language functions normal, according to her nurse, she walked with physical therapist earlier today She reports no improvement in the left leg weakness Urinalysis, 10/10/2024: Unremarkable CBC, 09/05/2024: Unremarkable, 10/10/2024: Unremarkable CMP, 09/05/2024: Unremarkable, 10/10/2024: Unremarkable TG/HDL/LDL/HDL, 10/04/2024: 136/124/69/40, 10/11/2024: 154/88/38/36 Vitamin B12, 05/2024: 978 Folic acid, 05/2024: 33.34 TSH, 10/04/24: 0.8 Echocardiogram, 09/05/2024: MILD LVH AND MILD LV DIASTOLIC DYSFUNCTION LV EJECTION IS 65% POSTERIOR MV CALCIFIED AORTIC VALVE CALCIFIED AND DECREASED OPENING PEAK GRADIENT ACROSS AORTIC VALVE IS 44 MM OF HG AND MEAN GRADIENT IS 25 MM OF HG AORTIC VALVE AREA IS 1.1 CM SQUARE MODERATE DEGREE AORTIC REGURGITATION MODERATE DEGREE AORTIC STENOSIS NO EFFUSION Carotid Doppler, 08/17/2024: No hemodynamically significant stenosis noted in right and left carotid system. CT head, 09/05/2024: 1. No acute intracranial process. 2. Chronic microvascular ischemic changes and old bilateral basal ganglia lacunar infarcts CT head, 10/10/2024: No acute intracranial abnormality CT head, 10/11/2024: 1. No acute intracranial abnormality. 2. No significant change from 08/17/2024. CTA head, neck, 09/05/2024: No large vessel occlusion or high-grade stenosis in the arteries of the head and neck. No aneurysm is identified vital signs Vital Sign Date Time Temp Pulse Resp B/P (MAP) Pulse Ox O2 Delivery O2 Flow Rate FiO2 4/22/25 22:07 85 19 112/72 10/13/24 21:00 98.2 92 98.2 10/13/24 20:00 Room Air* 0 21 Total Intake and Output 10/12/24 10/12/24 10/13/24 15:00 23:00 07:00 Intake Total 1198 ml 1200 ml Output Total 800 ml 1875 ml Balance 398 ml -675 ml medications Current Medications Medications Dose Ordered Sig/Feng Route Start Time Stop Time Status Last Admin Dose Admin Ondansetron HCl 4 mg Q4HP PRN IV 10/10/24 21:45 10/13/24 22:07 4 MG Enoxaparin Sodium 40 mg DAILY SC 10/11/24 10:00 10/13/24 09:20 40 MG Acetaminophen 650 mg Q6HPRN PRN PO 10/10/24 22:15 Labetalol HCl 10 mg [id number] PRN IV 10/10/24 22:15 Diagnostic Test (Pha) 1 strip IQ4HR 10/11/24 12:00 10/13/24 20:58 1 STRIP Insulin Human Regular IQ4HR SC 10/11/24 12:00 10/13/24 21:02 6 UNITS Dextrose 50 ml UD PRN IV 10/11/24 10:00 Aspirin 81 mg DAILY NG 10/11/24 19:30 10/13/24 09:18 81 MG Atorvastatin Calcium 80 mg STAT NG 10/11/24 19:30 Clopidogrel Bisulfate 75 mg DAILY NG 10/11/24 19:30 10/13/24 09:19 75 MG Lisinopril 10 mg DAILY NG 10/11/24 19:30 10/13/24 09:19 10 MG Patient Own Medication 2 DAILY PO 10/12/24 10:00 Hydromorphone HCl 0.25 mg Q4HPRN PRN IV 10/13/24 11:00 10/13/24 22:07 0.25 MG Insulin Glargine 40 units BID@0700,2200 SC 10/13/24 22:00 10/13/24 21:03 40 UNITS objective General: the patient is well developed and nourished. No acute distress. MENTAL STATUS: Subjective SPEECH, LANGUAGE, HIGHER CORTICAL FUNCTION: She understands, she can write, read, but not able to vocalize CRANIAL NERVES: Pupils are equal, round and reactive. EOMs full and conjugate. No nystagmus. Facial sensation intact in all three divisions bilaterally. Mandibular strength intact. Facial muscles symmetrical and strength intact. SENSATION: Sensation to touch and pinprick is diminished in the left arm, leg MOTOR: Normal tone in the upper and lower extremity. Normal muscle bulk. No fasciculations. No abnormal movements or posturing. Muscle strength of the major groups in the right extremities is 5/5. Muscle strength of the major groups in the left extremities is: Upper extremity: 4-5/5, lower extremity: 3/5 REFLEXES: Deep tendon reflexes normal and symmetrical. No pathological reflexes. CEREBELLAR/COORDINATION: No ataxia in both hands GAIT/STATION: deferred laboratory and microbiology Laboratory Tests 10/13/24 05:58 Test 10/13/24 05:58 Range/Units Serum Glucose 183 H 74-106 mg/dL Problem List Acute stroke syndrome with aphasia, left-sided hemiplegia, Stroke on 09/05/2024, status post IV thrombolytic treatment Stroke on 09/15/2024 Obesity Sleep apnea on CPAP Assessment/Plan Monitoring Supportive treatment Telemetry Speech pathology Stabilize vitals Stabilize blood pressure Avoid fever with Tylenol Aspirin 81 mg daily APAP in the hospital, she declined Physical therapy Secondary stroke prevention, stroke risk fact discussed This medical document was created using an electronic medical record system with [employer] dictation system. Although this document has been carefully reviewed, there may still be some phonetic and typographical errors. These areas are purely typographical due to imperfections of the software programs, and do not reflect any compromise in the patient's medical care. Prognosis poor Dietary Evaluation Review Comments: CCHO-60 diet Expected Outcomes/Goals: gradual wt loss, controlled DM Plan discussed with: Patient, Other VALENTIN ESTEVEZ MD Oct 13, 2024 22:56
[2024-10-14 01:00] VITALS: BP 111/72; PULSE 96; RESP 17; TEMP 98.1; O2SAT 93
[2024-10-14 05:00] VITALS: BP 112/80; PULSE 83; RESP 17; TEMP 97.9; O2SAT 94
[2024-10-14 06:12] LABS: Hematocrit 41.1 % (36.0-46.0); Hemoglobin 13.8 g/dL (12.2-16.2); Mean Corpuscular Hgb Conc. 33.5 g/dL (32.0-36.0); Mean Corpuscular Volume 83.6 fL (80.0-100.0); Platelet Count (auto) 201 10^3/uL (140-450); Red Blood Cells 4.92 10^6/uL (4.0-5.20); Red Cell Distribution Width 15.2 % (11.8-14.3); White Blood Cell 5.8 10^3/uL (4.4-10.8)
[2024-10-14 06:19] LABS: Band Neutrophils % (manual) 0; Basophils % (manual) 0 (0.0-2.0); Blast Cells 0; Metamyelocytes % 0; Myelocytes % 0; Promyelocytes % 0; Reactive Lymphocytes 0
[2024-10-14 06:25] LABS: Anion Gap 9 (5-15); Calcium 9.8 mg/dL (8.7-10.4); Carbon Dioxide 26 mmol/L (20-31); Chloride 103 mmol/L (98-107); Sodium 138 mmol/L (136-145)
[2024-10-14 06:31] LABS: Potassium 3.4 mmol/L (3.5-5.1)
[2024-10-14 06:36] LABS: BUN/Creatinine Ratio 11.5 (10.0-20.0); Blood Urea Nitrogen 7 mg/dL (9-23); Glucose 159 mg/dL (74-106)
[2024-10-14 07:05] LABS: Eosinophils % (manual) 2 (0-7); Lymphocytes % (manual) 32 (10.0-50.0); Monocytes % (manual) 6 (0-12)
[2024-10-14 07:06] LABS: Platelet Estimate Adequate
[2024-10-14 08:00] VITALS: PULSE 83; RESP 17; O2SAT 92
[2024-10-14 09:00] VITALS: BP 125/74; PULSE 90; RESP 17; TEMP 98.1; O2SAT 92
--- NOTE | 2024-10-14 14:15 | DVHSR ---
APPROVED REPORT EXAM: LIMITED Two-dimensional and M-mode echocardiogram with bubble study. INDICATION Recurrent CVA Limited repeat for bubble study RISK FACTORS Obesity: Height: 5'7", Weight: 274 DIMENSIONS LVDd4.7 (3.8-5.7cm)LA (2D) (1.9-4.0cm)Aortic Root (2.0-3.7cm) LVDs3.1 (2.5-4.0cm)LA (MM) (1.9-4.0cm)Aortic Cusp Exc (1.5-2.0cm) EF (%) 60.0 (55-70%)Rt. Atrium (1.9-4.0cm)Asc. Aorta cm IVSd1.1 (0.7-1.1cm)RV (D) (1.8-2.4cm) PWd1.0 (0.7-1.1cm) Mitral Valve MitralMitral Stenosis E/A ratio0.02D MVAcm2 ATRIA Injection of bubbles documented no interatrial shunt. Other Information Technically limited study due to body habitus, limited repeat for bubble study. Conclusion Injection of bubbles documented no interatrial shunt. LV and rv function normal
[2024-10-14 15:26] VITALS: BP 106/62; PULSE 88; RESP 20; TEMP 98.2; O2SAT 92
[2024-10-14] MEDS: POTASSIUM EFFERVESENT TAB 25 MEQ PO ONE (15:45)
--- NOTE | 2024-10-14 15:45 | DVHDSRES ---
Discharge Summary Date of Admission Resident Creating Document: DAVID SEVILLA RESDIENT Oct 10, 2024 at 21:37 Date of Discharge: Oct 14, 2024 Admitting Diagnosis Ischemic stroke Labs/Diagnostic Data: Laboratory Results Test 10/14/24 11:45 10/14/24 05:24 10/13/24 05:58 10/11/24 05:05 POC Glucose 158 mg/dl (70-106) White Blood Count 5.8 10^3/uL (4.4-10.8) Red Blood Count 4.92 10^6/uL (4.0-5.20) Hemoglobin 13.8 g/dL (12.2-16.2) Hematocrit 41.1 % (36.0-46.0) Mean Corpuscular Volume 83.6 fL (80.0-100.0) Mean Corpuscular Hemoglobin 28.0 pg (28.0-32.0) Mean Corpuscular Hemoglobin Concent 33.5 g/dL (32.0-36.0) Red Cell Distribution Width 15.2 % (11.8-14.3) Platelet Count 201 10^3/uL (140-450) Mean Platelet Volume 8.3 fL (6.9-10.8) Neutrophils (%) (Auto) % (37.0-80.0) Lymphocytes (%) (Auto) % (10.0-50.0) Monocytes (%) (Auto) % (0.0-12.0) Basophils (%) (Auto) % (0.0-2.0) Neutrophils # (Auto) 10 ^3/uL (1.6-8.6) Lymphocytes # (Auto) 10 ^3/uL (0.4-5.4) Monocytes # (Auto) 10 ^3/uL (0-1.3) Differential Total Cells Counted 100.0 (100) Neutrophils % (Manual) 60 (37.0-80.0) Band Neutrophils % (Manual) 0 Lymphocytes % (Manual) 32 (10.0-50.0) Monocytes % (Manual) 6 (0-12) Eosinophils % (Manual) 2 (0-7) Basophils % (Manual) 0 (0.0-2.0) Metamyelocytes % (manual) 0 Myelocytes % (Manual) 0 Promyelocytes % (Manual) 0 Blast Cells % (Manual) 0 Reactive Lymphocytes 0 Platelet Estimate Adequate Sodium Level 138 mmol/L (136-145) Potassium Level 3.4 mmol/L (3.5-5.1) Chloride Level 103 mmol/L (98-107) Carbon Dioxide Level 26 mmol/L (20-31) Anion Gap 9 (5-15) Blood Urea Nitrogen 7 mg/dL (9-23) Creatinine 0.61 mg/dL (0.550-1.02) Glomerular Filtration Rate Calc 99 mL/min (>90) BUN/Creatinine Ratio 11.5 (10.0-20.0) Serum Glucose 159 mg/dL (74-106) Calcium Level 9.8 mg/dL (8.7-10.4) Eosinophils (%) (Auto) 3.9 % (0.0-7.0) Eosinophils # (Auto) 0.2 10 ^3/uL (0-0.8) Basophils # (Auto) 0 10 ^3/uL (0-0.2) Nucleated Red Blood Cells 0.2 % Total Bilirubin 0.4 mg/dL (0.2-1.0) Aspartate Amino Transferase (AST) 18 U/L (13-40) Alanine Aminotransferase (ALT) 28 U/L (7-40) Alkaline Phosphatase 73 U/L (46-116) Total Protein 6.4 g/dL (5.7-8.2) Albumin 4.0 g/dL (3.2-4.8) Triglycerides Level 154 mg/dL (< 150) Cholesterol Level 88 mg/dL (< 200) LDL Cholesterol 38 mg/dL (< 100) HDL Cholesterol 36 mg/dL (40-59) Thyroid Stimulating Hormone (TSH) 0.75 uIU/mL (0.55-4.78) Test 10/10/24 18:00 10/10/24 16:20 Urine Color Yellow (Yellow) Urine Clarity Clear (Clear) Urine pH 6.0 (5.0-9.0) Urine Specific [place] 1.011 (1.001-1.035) Urine Protein Negative (Negative) Urine Ketones Negative (Negative) Urine Blood Negative /uL (Negative) Urine Nitrite Negative (Negative) Urine Bilirubin Negative (Negative) Urine Urobilinogen Normal mg/dL (Negative) Urine Leukocyte Esterase Negative /uL (Negative) Urine RBC 1 /hpf (0 - 4) Urine Microscopic WBC 2 /HPF (0-5) Urine Squamous Epithelial Cells None seen /hpf (<5) Urine Bacteria None seen /hpf (None Seen) Urine Glucose 3+ mg/dL (Normal) Troponin I High Sensitivity < 3 ng/L (</=34) Urine Opiates Screen Neg (NEGATIVE) Urine Fentanyl Screen Neg (NEGATIVE) Urine Barbiturates Screen Neg (NEGATIVE) Urine Phencyclidine Screen Neg (NEGATIVE) Urine Amphetamines Screen Neg (NEGATIVE) Urine Benzodiazepines Screen Neg (NEGATIVE) Urine Cocaine Screen Neg (NEGATIVE) Urine Cannabinoids Screen Neg (NEGATIVE) Prothrombin Time 10.5 sec (9.3-11.8) Prothrombin Time INR 0.99 (0.9-1.15) Activated Partial Thromboplast Time 24.5 SEC (24.5-34.5) B-Type Natriuretic Peptide 11.17 pg/mL (0-100) Other Laboratory Tests 10/14/24 05:24 Brief Hx & Hospital Course: 64-year-old female with past medical history of diabetes, hypertension, [place], dyslipidemia, CVA came to the hospital due to left-sided weakness and aphasia. Patient was admitted on 09/05/2024, had ischemic stroke and was given TnKase and subsequently transferred to the higher level of care. Per patient she had partial improvement but since yesterday 3:00 p.m. got suddenly left-sided weakness of upper and lower limb. She has complete motor aphasia, but can comprehend and communicate through writing. Shows severe back pain. Patient denies fever, chest pain, shortness of breath, nausea, vomiting, or any recent bowel and bladder habit changes. PMHx: diabetes, hypertension, [place], dyslipidemia, CVA, history of paroxysmal AFib, dyslipidemia, morbid obesity, catalepsy, narcolepsy, obstructive sleep apnea (on CPAP), degenerative disc disease with prolapse disc PSHx: Appendectomy, cholecystectomy, hernia repair, not for VATS fine laminectomy, cervical spine surgery, left shoulder surgery, right ankle fracture repair, spinal stimulator insertion Family history: Significant for diabetes and cancer Social history: Denies smoking or any other drug use, lives alone at home Home medication: Lantus 45 units at a.m. and 45 units p.m., lispro according to sliding scale, lisinopril, statin, Allergic history: Indomethacin, sulfa antibiotic, sulfa drugs Hospital course: Patient was admitted on the line of ischemic stroke. Head CT scan showed no intracranial acute abnormalities, on repeated CT scan 1 day L still showed no changes. MRI could not performed due to implanted spinal stimulator which is incompatible with MRI. Neurology consulted, recommended medical management. Patient was given aspirin, atorvastatin, clopidogrel, and continued home medicine. Echocardiogram with bubble studies showed no intra-atrial shunt with normal LV and RV function. EKGs showed normal sinus rhythm with no acute ST or T-wave changes. Home medication for the diabetes, narcolepsy, cataplexy with continued during hospital admission. Upon admission, the patient had complete paralysis of left upper and lower side with complete motor aphasia, due to failed swallowing evaluation, the patient was put on NG tube. on 2nd day the patient were able to speak fluently, and the power of left upper and lower limb improved from 0/5 to 3/5, patient were able to swallow, NG tube was removed. Due to residual deficits, patient was evaluated physical therapy, recommended SNF placement for PT. On 10/14/2024, the patient was feeling better since admission. Discharge plan discussed with the patient and the patient was discharged to [facility] acute care facility for PT. Discharge plan: Physical therapy 2 times a day for 2 weeks Follow up with the PCP within 1 week of the discharge. Dual antiplatelet for 21 days, then single antiplatelet continued Continue home medicine Operations or Procedures [place] [id number] Ph: [phone] DIAGNOSTIC IMAGING Diagnostic Imaging Report : [id number] Signed PATIENT: ELVIS CONCEPCION ACCT: [id number] UNIT: [id number] : 1960 LOC: CENTRAL ROOM / BED: [facility] / A AGE / SEX: 64 / F ADM STATUS: ADM IN SERVICE [id number] ORDERING PHYSICIAN: DAVID SEVILLA PROCEDURE(s): ECIDC - ECHO 2D MODE CARDIAC DOP REASON: Recurrent CVA ORDER NUMBER(s): [id number], ACCESSION NUMBER(s): [id number] APPROVED REPORT EXAM: LIMITED Two-dimensional and M-mode echocardiogram with bubble study. INDICATION Recurrent CVA Limited repeat for bubble study RISK FACTORS Obesity: Height: 5'7", Weight: 274 DIMENSIONS LVDd 4.7 (3.8-5.7cm) LA (2D) (1.9-4.0cm) Aortic Root (2.0-3.7cm) LVDs 3.1 (2.5-4.0cm) LA (MM) (1.9-4.0cm) Aortic Cusp Exc (1.5- 2.0cm) EF (%) 60.0 (55-70%) Rt. Atrium (1.9-4.0cm) Asc. Aorta cm IVSd 1.1 (0.7-1.1cm) RV (D) (1.8-2.4cm) PWd 1.0 (0.7-1.1cm) Mitral Valve Mitral Mitral Stenosis E/A ratio 0.0 2D MVA cm2 ATRIA Injection of bubbles documented no interatrial shunt. Other Information Technically limited study due to body habitus, limited repeat for bubble study. Conclusion Injection of bubbles documented no interatrial shunt. LV and rv function normal SIGNED BY: DEBRA BRITO MD SIGNED DATE/TIME: 10/14/24 [id number] CC: Condition at Discharge: Fair Final Diagnosis/Problems List Recurrent ischemic stroke Left-sided hemiplegia, due to ischemic stroke Motor Aphasia, due to left-sided stroke History of coronary artery disease Dyslipidemia Hypertension Diabetes type 2 with hyperglycemia Narcolepsy Cataplexy Obstructive sleep apnea Morbid obesity Hypokalemia Discharge Disposition: [facility] Facility Discharge Instruct/Medications Diet: Cardiac 2g Na,low cholest Activity: No Restrictions, As Tolerated Follow Up/Referral: Follow up with the PCP within 1 week of the discharge. Medications: Per referral papers Discharge Statement: "Patient was advised to return to the ER or call 911 if any headaches, dizziness, shortness of breath, chest pain, abdominal pain, bleeding, fevers, or worsening of medical condition. Patient was counseled about treatment plan, medications, possible side effects, patientverbalized understanding. All questions were answered to the best of my ability. This discharge took greater then 30 minutes in planning, reviewing documentation, counseling the patient, and discussing with other team members." ASSESSMENT ASSESSMENT Assessment Recurrent ischemic stroke DAVID SEVILLA Oct 14, 2024 15:45
== END 2024-10-14 16:45 | DRG 65 ==
LOC: ER 16:18 → EDBD 16:18 → OVERFLOW 21:37 → CENTRAL 10-12 03:38 → TELE-CENTR 10-12 23:10 → CENTRAL 10-14 07:05
PROVIDERS: ADMIT Student in an Organized Health Care Education/Training Program; ATTEND Student in an Organized Health Care Education/Training Program
PROC: 5A09357 Assistance with Respiratory Ventilation, Less than 24 Consecutive Hours, Continuous Positive Airway Pressure (ICD-10-PCS; principal; 2024-10-11)
DX: I63.9 Cerebral infarction, unspecified (principal); G81.94 Hemiplegia, unspecified affecting left nondominant side; Z68.41 Body mass index [BMI] 40.0-44.9, adult; I10 Essential (primary) hypertension; E11.65 Type 2 diabetes mellitus with hyperglycemia; E66.01 Morbid (severe) obesity due to excess calories; I25.10 Atherosclerotic heart disease of native coronary artery without angina pectoris; E78.5 Hyperlipidemia, unspecified; G47.30 Sleep apnea, unspecified; I35.2 Nonrheumatic aortic (valve) stenosis with insufficiency; I25.2 Old myocardial infarction; Z86.73 Personal history of transient ischemic attack (TIA), and cerebral infarction without residual deficits; Z81.8 Family history of other mental and behavioral disorders; Z80.0 Family history of malignant neoplasm of digestive organs; Z79.82 Long term (current) use of aspirin; Z83.3 Family history of diabetes mellitus; Z82.49 Family history of ischemic heart disease and other diseases of the circulatory system; Z79.4 Long term (current) use of insulin; Z79.899 Other long term (current) drug therapy; Z88.2 Allergy status to sulfonamides; Z88.8 Allergy status to other drugs, medicaments and biological substances; Z90.49 Acquired absence of other specified parts of digestive tract
CPT/HCPCS: 36415; 70450; 71045; 80048; 80053; 80061; 80307; 81001; 82962; 83880; 84443; 84484; 85007; 85025; 85027; 85610; 85730; 92610; 93005; 93306; 94660; 96360; 96361; 97163; 99291; G0378; J1815; J1885; J2405

== ENCOUNTER 2024-10-24 06:26 | Inpatient (IN) | payer MEDICARE, BC ==
[~2024-10-24] VITALS: Ht 162.6 cm; Wt 115.0 kg
--- NOTE | 2024-10-24 06:53 | ED.PDOC ---
HPI Comments 64 year old female HERIBERTO presents to the ED with chief complaint of chest pain. EMS reports patient is coming from [facility] for 7/10 chest pain non radiating along with associated nausea since this morning at 2am. EMS relays that the patient has had many similar episodes of chest pain in the past, occurring about 2-3 times a month according to the patient, however,this time it woke her up. EMS states patient was administered 324mg of ASA and 4mg of Zofran with little relief noted. Patient notes she currently has left sided deficits from a CVA she had last month and is being taken care of currently by [facility] due to this. Patient denies any SOB, dizziness, headache, vomiting, abdominal pain, numbness, or blurred vision at this time. 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, Medications, Allergies Allergies: Coded Allergies: Sulfa Drugs (Verified Allergy, Mild, rash, 08/13/24) Sulfa Antibiotics (Unverified Allergy, Unknown, 09/05/24) Indomethacin (Verified Adverse Reaction, Mild, migraine, 08/13/24) Home Meds Active Scripts Ciprofloxacin Hcl (Cipro) 500 Mg Tab, 1 TAB PO BID, #20 TAB Prov:CECILIA BRITO MD 10/07/24 Tramadol HCl (Tramadol HCl) 50 Mg Tab, 50 MG PO TID PRN, #30 TAB Prov:CECILIA BRITO MD 10/07/24 Lorazepam (ATIVAN TABLET) 0.5 Mg Tb, 1 TAB PO TID PRN, #30 TAB Prov:CECILIA BRITO MD 10/07/24 Gabapentin (Gabapentin) 300 Mg Cap, 300 MG PO TID for 30 Days, #90 CAP 3 Refills Prov:SETH TAO DO 08/16/24 Docusate Sodium (Docusate Sodium) 100 Mg Cap, 100 MG PO BIDPRN PRN for 15 Days, #15 CAP Prov:MOUNIKA TILLMAN MD 04/20/24 Fluticasone Propionate (Nasal) (Fluticasone Propionate) 50 Mcg/Act Spr, 50 MCG EACHNOSTRI Q12HR for 30 Days, #2 SPRAY Prov:MOUNIKA TILLMAN MD 04/17/24 Insulin Regular (Human) (Novolin R Flexpen) 100 Unit/Ml Inj, 15 UNIT IJ TID for 28 Days, #100 INJ 15 units before meals, cheack blood sugar 2 hours after meal and add sliding scale Prov:MOUNIKA TILLMAN MD 04/17/24 Insulin Glargine (Lantus Solostar) 100 Unit/Ml Inj, 90 UNITS SC DAILY for 28 Days, #30 INJ Prov:MOUNIKA TILLMAN MD 04/17/24 Reported Medications Mesalamine (Canasa) 1,000 Mg Sup, 400 MG RE BID, SUPP 08/28/24 Metoprolol Tartrate (Metoprolol Tartrate) 25 Mg Tab, 25 MG PO DAILY for 30 Days, MG 08/28/24 Semaglutide (Ozempic) 2 Mg/3 Ml Inj, 2 MG SC, INJ 08/13/24 Metoprolol Tartrate (Metoprolol Tartrate) 25 Mg Tab, 1 TAB PO BID, #180 TAB 1 Refill 08/13/24 Mesalamine (Mesalamine Dr) 400 Mg Cap, 400 MG PO, CAP 08/13/24 Duloxetine Hcl (Cymbalta) 60 Mg Cap, 1 CAP PO DAILY, #90 CAP 3 Refills 08/13/24 Ondansetron HCl (Ondansetron) 4 Mg Tab, 4 MG PO DAILY PRN for NAUSEA 07/15/23 Pitolisant Hydrochloride (Wakix) 17.8 Mg Tab, 2 TAB PO DAILY for NARCOLEPSY for 90 Days, #180 11/02/21 Lisinopril (Lisinopril) 10 Mg Tab, 10 MG PO DAILY for 30 Days, MG 07/26/16 Information Source: Patient, Emergency Med Personnel Mode of Arrival: EMS Severity: Moderate Timing: Hours Duration: Since onset Prehospital treatment: None Location: Substernal Radiation: No Radiation Past Medical History PAST MEDICAL HISTORY: CAD, CVA, DM, High Lipids, HTN, [place] Past Medical History (Other): Sleep apnea, narcolepsy, ulcerative colitis, and Diverticular disease Surgical History: Appendectomy, Cholecystectomy, , Hernia Repair Surgical History (Other): Neck fusion, bilateral carpal tunnel, right ankle, angiogram CLAM PICKER History: Denies all CLAM PICKER Hx Family History Family History: Reviewed,noncontributory to illness Social History Smoker: Non-Smoker Alcohol: Rarely Drugs: Denies Drug Use Lives In: Home Constitutional: denies: chills, diaphoresis, fatigue, fever, malaise, sweats, weakness, others EENTM: denies: blurred vision, double vision, ear bleeding, ear discharge, ear drainage, ear pain, ear ringing, eye pain, eye redness, hearing loss, mouth pain, mouth swelling, nasal discharge, nose bleeding, nose congestion, nose pain, photophobia, tearing, throat pain, throat swelling, voice changes, others Respiratory: denies: cough, hemoptysis, orthopnea, SOB at rest, shortness of breath, SOB with excertion, stridor, wheezing, others Cardiovascular: reports: chest pain; denies: dizzy spells, diaphoresis, Dyspnea on exertion, edema, irregular heart beat, left arm pain, lightheadedness, palpitations, PND, syncope, others Gastrointestinal: reports: nausea; denies: abdomen distended, abdominal pain, blood streaked bowels, constipated, diarrhea, dysphagia, difficulty swallowing, hematemesis, melena, poor appetite, poor fluid intake, rectal bleeding, rectal pain, vomiting, others Genitourinary: denies: abnormal vagina bleeding, burning, dyspareunia, dysuria, flank pain, frequency, hematuria, incontinence, pain, , vagina discharge, urgency, others Neurological: denies: dizziness, fainting, headache, left sided numbness, left sided weakness, numbness, paresthesia, pre-existing deficit, right sided numbness, right sided weakness, seizure, speech problems, tingling, tremors, weakness, others Musculoskeletal: denies: back pain, gout, joint pain, joint swelling, muscle pain, muscle stiffness, neck pain, others Integumetry: denies: bruises, change in color, change in hair/nails, dryness, laceration, lesions, lumps, rash, wounds, others Allergic/Immunocompromised: denies: Difficulty Healing, Frequent Infections, Hives, Itching, others Hematologic/Lymphatic: denies: anemia, blood clots, easy bleeding, easy bruising, swollen glands, others Endocrine: denies: excessive hunger, excessive sweating, excessive thirst, excessive urination, flushing, intolerance to cold, intolerance to heat, unexplained weight gain, unexplained weight loss, others Psychiatric: denies: anxiety, bipolar disorder, depression, hopeless, panic disorder, schizophrenia, sleepless, suicidal, others All Other Systems: Reviewed and Negative Physical Exam General Appearance: No Apparent Distress, Normal HEENT: Normal ENT Inspection, PERRL/EOMI Neck: Full Range of Motion, Non-Tender, Normal, Normal Inspection Respiratory: Chest Non-Tender, Lungs Clear, No Accessory Muscle Use, No Respiratory Distress, Normal Breath Sounds Cardiovascular: No Edema, No JVD, No Murmur, No Gallop, Normal Peripheral Pulses, Regular Rate/Rhythm Breast Exam: Deferred Gastrointestinal: No Organomegaly, Non Tender, No Pulsatile Mass, Normal Bowel Sounds, Soft Genitalia: Deferred Pelvic: Deferred Rectal: Deferred Extremities: No calf tenderness, Normal capillary refill, Normal inspection, Normal range of motion, Non-tender, No pedal edema Musculoskeletal : Apperance: Normal Neurologic: Alert, information systems operator II-XII nml as Tested, No Motor Deficits, Normal Affect, Normal Mood, No Sensory Deficits Cerebellar Function: Normal Reflexes: Normal Skin: Dry, Normal Color, Warm Lymphatic: No Adenopathy Was a procedure done? Was a procedure done?: No CP Differential Dx Differential Diagnosis: N/A Differential Diagnosis: N/A Differential Diagnosis: Angina, Aortic dissection, Chest Wall Pain, Costochondritis, Esophageal reflux/spasm, Myocardial Infarction, Pericarditis, Pneumonia X-Ray, Labs, Meds, VS Vital Signs Date Time Temp Pulse Resp B/P (MAP) Pulse Ox O2 Delivery O2 Flow Rate FiO2 10/24/24 07:25 72 10/24/24 06:43 78 10/24/24 06:26 97.9 75 18 134/77 (96) 94 97.9 Lab Test 10/24/24 08:37 10/24/24 06:37 Range/Units Urine Color Pending Urine Clarity Pending Urine pH Pending Urine Specific [place] Pending Urine Protein Pending Urine Ketones Pending Urine Blood Pending Urine Nitrite Pending Urine Bilirubin Pending Urine Urobilinogen Pending Urine Leukocyte Esterase Pending Urine RBC Pending Urine Microscopic WBC Pending Urine Squamous Epithelial Cells Pending Urine Bacteria Pending Urine Glucose Pending White Blood Count 5.3 4.4-10.8 10^3/uL Red Blood Count 5.03 4.0-5.20 10^6/uL Hemoglobin 14.2 12.2-16.2 g/dL Hematocrit 42.0 36.0-46.0 % Mean Corpuscular Volume 83.5 80.0-100.0 fL Mean Corpuscular Hemoglobin 28.2 28.0-32.0 pg Mean Corpuscular Hemoglobin Concent 33.8 32.0-36.0 g/dL Red Cell Distribution Width 15.0 H 11.8-14.3 % Platelet Count 246 140-450 10^3/uL Mean Platelet Volume 8.3 6.9-10.8 fL Neutrophils (%) (Auto) 52.0 37.0-80.0 % Lymphocytes (%) (Auto) 35.7 10.0-50.0 % Monocytes (%) (Auto) 7.4 0.0-12.0 % Eosinophils (%) (Auto) 3.9 0.0-7.0 % Basophils (%) (Auto) 1.0 0.0-2.0 % Neutrophils # (Auto) 2.8 1.6-8.6 10 ^3/uL Lymphocytes # (Auto) 1.9 0.4-5.4 10 ^3/uL Monocytes # (Auto) 0.4 0-1.3 10 ^3/uL Eosinophils # (Auto) 0.2 0-0.8 10 ^3/uL Basophils # (Auto) 0.1 0-0.2 10 ^3/uL Nucleated Red Blood Cells 0.0 % Sodium Level 140 136-145 mmol/L Potassium Level 3.7 3.5-5.1 mmol/L Chloride Level 108 H 98-107 mmol/L Carbon Dioxide Level 23 20-31 mmol/L Anion Gap 9 5-15 Blood Urea Nitrogen 8 L 9-23 mg/dL Creatinine 0.63 0.550-1.02 mg/dL Glomerular Filtration Rate Calc 98 >90 mL/min BUN/Creatinine Ratio 12.7 10.0-20.0 Serum Glucose 150 H 74-106 mg/dL Calcium Level 10.0 8.7-10.4 mg/dL Troponin I High Sensitivity 4 </=34 ng/L Chest XR: FINDINGS: LUNGS AND PLEURAL SPACES: See below. HEART: Cardiomegaly with mild congestion. MEDIASTINUM: Unremarkable. Normal mediastinal contour. BONES/JOINTS: Unremarkable. No acute fracture. OTHER FINDINGS: . IMPRESSION: Cardiomegaly with mild congestion. Time of 1ST Reevaluation: 07:46 Reevaluation 1ST: Unchanged Time of 2ND Reevaluation: 08:39 Reevaluation 2ND: Resolved Patient Education/Counseling: Diagnosis, Treatment, Prognosis, Need For Follow Up Family Education/Counseling: No Family Present Additional Information Previous visits: 10/10/24 admission for CVA, 10/03/24 admission for angina, 09/05/24 admission for chest pain, 08/28/24 admission for chest pain The following tests were ordered, and results were reviewed by me: CBC, BMP, Troponin, EKG, CXR Additional Information was gathered from interviewing the following independent historians: EMS I reviewed and agreed with the following test results read by other providers: Chest XR I discussed treatment and results with medical personnel and: Patient Comprehensive systems review obtained and negative except for what is stated in the HPI. Departure 1 Departure Time of Disposition: 08:39 Impression: Primary Impression: Chest pain without hemodynamic instability Additional Impression: Unstable chest pain due to insufficient blood supply to heart Disposition: ADMITTED INPATIENT Admit to: Tele Condition: Serious Discharged With: Self Critical Care Note Critical Care Time?: Yes (45 min-critical care time only) Critical care comment: Due to concerns for patients condition deteriorating, the care required my highest level of attention and readiness to intervene. I assessed the patient, reviewed the medical records, ordered the appropriate tests and treatments, then reassessed for results and responsiveness. I communicated with medical personnel and consultants and formulated a plan of care. Total critical care time excludes any procedures Stability Stability form required: No Heart Score Heart Score: Heart Score Response (Comments) Value History Highly Suspicious 2 EKG Normal 0 Age >65 2 Risk Factors >3 or Hx ASHD 2 Troponin Normal limit 0 Total 6 I personally scribed for MARY BARNETT MD ([email or web address]) on 10/24/24 at 06:53. Electronically submitted by Michel Jessica ([email or web address]). I personally scribed for MRAY BARNETT MD ([email or web address]) on 10/24/24 at 07:34. Electronically submitted by Michel Jessica ([email or web address]). MARY BARNETT MD October 24, 2024 06:53
[2024-10-24] MEDS: ASPirin 81 mg TAB PO ONE (07:07)
[2024-10-24 07:19] LABS: Basophils # (auto) 0.1 10 ^3/uL (0-0.2); Eosinophils # (auto) 0.2 10 ^3/uL (0-0.8); Eosinophils % (auto) 3.9 % (0.0-7.0); Hemoglobin 14.2 g/dL (12.2-16.2); Lymphocytes # (auto) 1.9 10 ^3/uL (0.4-5.4); Lymphocytes % (auto) 35.7 % (10.0-50.0); Mean Corpuscular Hemoglobin 28.2 pg (28.0-32.0); Mean Corpuscular Hgb Conc. 33.8 g/dL (32.0-36.0); Mean Corpuscular Volume 83.5 fL (80.0-100.0); Monocytes # (auto) 0.4 10 ^3/uL (0-1.3); Monocytes % (auto) 7.4 % (0.0-12.0); Neutrophils # (auto) 2.8 10 ^3/uL (1.6-8.6); Platelet Count (auto) 246 10^3/uL (140-450); Red Blood Cells 5.03 10^6/uL (4.0-5.20); White Blood Cell 5.3 10^3/uL (4.4-10.8)
[2024-10-24 07:25] VITALS: PULSE 73; RESP 20; O2SAT 93
--- NOTE | 2024-10-24 07:29 | DVH ---
EXAM: XR Chest, 1 View CLINICAL INDICATION: cp TECHNIQUE: Frontal view of the chest. COMPARISON: XY CHEST XRAY 1 VIEW on DOS: 10/11/24, XY CHEST XRAY 1 VIEW on DOS: 10/10/24, XY CHEST XR AY 1 VIEW on DOS: 08/27/24, XY CHEST PORTABLE on DOS: 08/17/24, XY CHEST PORTABLE on DOS: 08/13/24 FINDINGS: LUNGS AND PLEURAL SPACES: See below. HEART: Cardiomegaly with mild congestion. MEDIASTINUM: Unremarkable. Normal mediastinal contour. BONES/JOINTS: Unremarkable. No acute fracture. OTHER FINDINGS: . IMPRESSION: Cardiomegaly with mild congestion.
[2024-10-24 08:07] LABS: Potassium 3.7 mmol/L (3.5-5.1); Sodium 140 mmol/L (136-145)
[2024-10-24 08:08] LABS: Anion Gap 9 (5-15); Carbon Dioxide 23 mmol/L (20-31)
[2024-10-24 08:13] LABS: BUN/Creatinine Ratio 12.7 (10.0-20.0)
[2024-10-24 08:15] LABS: Blood Urea Nitrogen 8 mg/dL (9-23); Chloride 108 mmol/L (98-107); Glucose 150 mg/dL (74-106)
[2024-10-24 09:11] LABS: Urine Bacteria FEW /hpf (None Seen); Urine Blood Negative /uL (Negative); Urine Mucus FEW (None Seen); Urine Protein, UAD TRACE (Negative); Urine Squamous Epithelial Cell FEW /hpf (<5); Urine Urobilinogen Normal (Negative); Urine WBC 823 /HPF (0-5); Urine WBC Clumps PRESENT /hpf (None Seen); Urine pH 5.5 (5.0-9.0)
[2024-10-24 09:13] LABS: Urine Clarity Cloudy (Clear); Urine Color Yellow (Yellow)
[2024-10-24] MEDS: ONDANSETRON ODT 4 MG TAB PO ONE (10:10)
[2024-10-24] MEDS: NITROGLYCERIN 0.4 MG SL TAB SL ONE (10:11)
[2024-10-24] MEDS: cefTRIAXone 1GM/50ML D5W 50 ML IV ONE (13:15)
[2024-10-24] MEDS ORDERED: ONDANSETRON HCL 4 MG/2 ML VIAL IV PRN (13:15)
--- NOTE | 2024-10-24 14:18 | DVHHP2 ---
History of Present Illness Reason for Visit: Chest pain History of Present Illness This is a 64-year-old female with history of hypertension, hyperlipidemia, DM, CAD, CVA, [place], ulcerative colitis, narcolepsy, sleep apnea and diverticular disease who presents to ED with chief complaint of 7/10 chest pain. The patient resides at [facility] and relates recurrent chest pain and that it has occurred in the past occurring about two to 3 times a month. The patient denied recent injury or trauma to her chest, changes in diet and recent life stressors. EMS states patient was administered 324 mg of aspirin and 4 mg of Zofran with little relief noted. Patient notes she currently has left-sided deficit from a CVA she had last month and is being taking care of currently by the [facility] due to this. The patient is concerned about her symptoms and would like to be further evaluated and treated. The patient will be admitted under hospitalist care to the medical-surgical unit for evaluation and treatment. Upon evaluation the patient does complain of some mild chest pain that is nonradiating. The patient denies fever, chills, headache, dizziness, palpitation, shortness of breaths, nausea, vomiting, abdominal pain, diarrhea, constipation and other associated symptoms. The plan has been discussed with the patient and primary RN in which all questions concerns have been addressed. 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: CVA Endocrine: Diabetes Past Medical History Sleep apnea Narcolepsy Ulcerative colitis Past Surgical History: Appendectomy, Cholecystectomy, , Hernia Repair Past Surgical History Neck fusion Right ankle surgery Bilateral carpal tunnel syndrome surgery Family History: None Smoke: No ALCOHOL: none Drugs: None Lives: with Family Domestic Violence: Neg Review of Systems Cardiovascular: Chest Pain Allergies: Coded Allergies: Sulfa Drugs (Verified Allergy, Mild, rash, 08/13/24) Sulfa Antibiotics (Unverified Allergy, Unknown, 09/05/24) Indomethacin (Verified Adverse Reaction, Mild, migraine, 08/13/24) Medications Current Medications Medications Dose Ordered Sig/Feng Route Start Time Stop Time Status Last Admin Dose Admin Aspirin 81 mg DAILY PO 10/25/24 10:00 Ondansetron HCl 4 mg Q4HP PRN IV 10/24/24 13:15 Enoxaparin Sodium 40 mg DAILY SC 10/25/24 10:00 Acetaminophen 650 mg Q6HP PRN PO 10/24/24 13:15 Ceftriaxone Sodium 50 ml @ 100 mls/hr DAILY@09 IV 10/25/24 09:00 Exam Vital Signs Vital Signs Date Time Temp Pulse Resp B/P (MAP) Pulse Ox O2 Delivery O2 Flow Rate FiO2 10/24/24 11:11 110/60 10/24/24 09:25 87 20 95 10/24/24 07:25 97.8 97.8 10/24/24 07:25 Room Air* 0 21 General Appearance: Alert, Oriented X3, Cooperative, No acute distress HEENT: Atraumatic, PERRLA, Mucous membr. moist/pink Respiratory: Clear to auscultation, Normal air movement Cardiovascular: Normal S1, Normal S2, No murmurs Abdominal: Normal bowel sounds, Soft, No tenderness, No hepatospenomegaly, No masses Extremities: No clubbing, No cyanosis, No edema, Normal pulses, No tenderness/swelling Skin: No rashes, No breakdown Neuro: Normal gait, Normal speech, Strength at 5/5 X4 ext, Normal tone, Sensation intact, Cranial nerves 3-12 NL Psych/Mental Status: Mental status NL Labs/Xrays Labs Test 10/24/24 10:16 10/24/24 08:37 10/24/24 06:37 Range/Units Troponin I High Sensitivity 4 </=34 ng/L Urine Color Yellow Yellow Urine Clarity Cloudy H Clear Urine pH 5.5 5.0-9.0 Urine Specific [place] 1.020 1.001-1.035 Urine Protein Trace H Negative Urine Ketones Negative Negative Urine Blood Negative Negative /uL Urine Nitrite 2+ H Negative Urine Bilirubin Negative Negative Urine Urobilinogen Normal Negative mg/dL Urine Leukocyte Esterase 3+ Negative /uL Urine RBC 5 0 - 4 /hpf Urine WBC Clumps Present None Seen /hpf Urine Microscopic WBC 823 H 0-5 /HPF Urine Squamous Epithelial Cells Few <5 /hpf Urine Bacteria Few H None Seen /hpf Urine Mucus Few None Seen Urine Glucose Normal Normal mg/dL White Blood Count 5.3 4.4-10.8 10^3/uL Red Blood Count 5.03 4.0-5.20 10^6/uL Hemoglobin 14.2 12.2-16.2 g/dL Hematocrit 42.0 36.0-46.0 % Mean Corpuscular Volume 83.5 80.0-100.0 fL Mean Corpuscular Hemoglobin 28.2 28.0-32.0 pg Mean Corpuscular Hemoglobin Concent 33.8 32.0-36.0 g/dL Red Cell Distribution Width 15.0 H 11.8-14.3 % Platelet Count 246 140-450 10^3/uL Mean Platelet Volume 8.3 6.9-10.8 fL Neutrophils (%) (Auto) 52.0 37.0-80.0 % Lymphocytes (%) (Auto) 35.7 10.0-50.0 % Monocytes (%) (Auto) 7.4 0.0-12.0 % Eosinophils (%) (Auto) 3.9 0.0-7.0 % Basophils (%) (Auto) 1.0 0.0-2.0 % Neutrophils # (Auto) 2.8 1.6-8.6 10 ^3/uL Lymphocytes # (Auto) 1.9 0.4-5.4 10 ^3/uL Monocytes # (Auto) 0.4 0-1.3 10 ^3/uL Eosinophils # (Auto) 0.2 0-0.8 10 ^3/uL Basophils # (Auto) 0.1 0-0.2 10 ^3/uL Nucleated Red Blood Cells 0.0 % Sodium Level 140 136-145 mmol/L Potassium Level 3.7 3.5-5.1 mmol/L Chloride Level 108 H 98-107 mmol/L Carbon Dioxide Level 23 20-31 mmol/L Anion Gap 9 5-15 Blood Urea Nitrogen 8 L 9-23 mg/dL Creatinine 0.63 0.550-1.02 mg/dL Glomerular Filtration Rate Calc 98 >90 mL/min BUN/Creatinine Ratio 12.7 10.0-20.0 Serum Glucose 150 H 74-106 mg/dL Calcium Level 10.0 8.7-10.4 mg/dL B-Type Natriuretic Peptide 7.19 0-100 pg/mL ORDERING PHYSICIAN: MARY BARNETT MD PROCEDURE(s): CXRP - CHEST PORTABLE REASON: cp ORDER NUMBER(s): [id number], ACCESSION NUMBER(s): [id number] EXAM: XR Chest, 1 View CLINICAL INDICATION: cp TECHNIQUE: Frontal view of the chest. COMPARISON: XY CHEST XRAY 1 VIEW on DOS: 10/11/24, XY CHEST XRAY 1 VIEW on DOS: 10/10/24, XY CHEST XRAY 1 VIEW on DOS: 08/27/24, XY CHEST PORTABLE on DOS: 08/17/24, XY CHEST PORTABLE on DOS: 08/13/24 FINDINGS: LUNGS AND PLEURAL SPACES: See below. HEART: Cardiomegaly with mild congestion. MEDIASTINUM: Unremarkable. Normal mediastinal contour. BONES/JOINTS: Unremarkable. No acute fracture. OTHER FINDINGS: . IMPRESSION: Cardiomegaly with mild congestion. ATED BY: CHRIS BERMEO MD DICTATED DATE/TIME: 10/24/24726 SIGNED BY: CHRIS BERMEO MD SIGNED DATE/TIME: 10/24/24726 CC: Assessment/Plan Assessment/Plan Chest pain--CHARLOTTE GARNETT presents to ED with chief complaint of 7/10 nonradiating chest pain associated with nausea since this morning at 2:00 a.m. 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 and HS 1800 ADA diet Accu-Cheks per protocol Hypertension Continue antihypertensive agent metoprolol and lisinopril Continue to monitor Reconcile home medication DVT prophylaxis PUD prophylaxis not indicated no history of GERD Labs in a.m. 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 Procedure Category Date Status Time Aspirin Tablet PHA 10/25/24 In Process 10:00 Admit ADMIT 10/24/24 Transmitted 13:02 2 Gm Sodium Diet DIET 10/24/24 Transmitted Lunch Ondansetron Hcl PHA 10/24/24 In Process (Zofran) 13:15 Enoxaparin Sodium PHA 10/25/24 In Process (Lovenox) 10:00 Complete Blood Count LAB 10/25/24 Verified 04:00 Comprehensive LAB 10/25/24 Verified Metabolic Panel 04:00 Condition: Fair RAE 10/24/24 In Process 13:02 Acetaminophen Tablet PHA 10/24/24 In Process (Tylenol Tablet) 13:15 Bedrest With Bathroom RAE 10/24/24 In Process Privileg 13:02 Echo 2d Mode Cardiac US 10/24/24 Logged DOP 13:04 Ceftriaxone 1gm/50ml PHA 10/25/24 In Process D5w (Rocephin) 09:00 Date of Service: October 24, 2024 Billing Provider: GERSON ROACH Common Visit Codes: [id number] INP/OBS CARE (HIGH) GERSON ROACH October 24, 2024 14:18
[2024-10-24] MEDS: MORPHINE SULFATE INJ 2 MG/ml SYRG IV ONE (15:43)
--- NOTE | 2024-10-24 18:06 | ECG ---
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
[2024-10-24 19:30] VITALS: PULSE 82; RESP 18; O2SAT 96
[2024-10-25] MEDS: MORPHINE SULFATE INJ 2 MG/ml SYRG IV ONE (01:13)
[2024-10-25 04:37] LABS: Basophils # (auto) 0.1 10 ^3/uL (0-0.2); Basophils % (auto) 1.3 % (0.0-2.0); Eosinophils # (auto) 0.2 10 ^3/uL (0-0.8); Eosinophils % (auto) 3.1 % (0.0-7.0); Hematocrit 42.3 % (36.0-46.0); Hemoglobin 13.8 g/dL (12.2-16.2); Lymphocytes % (auto) 37.4 % (10.0-50.0); Mean Corpuscular Hemoglobin 27.7 pg (28.0-32.0); Mean Corpuscular Hgb Conc. 32.7 g/dL (32.0-36.0); Mean Corpuscular Volume 84.7 fL (80.0-100.0); Monocytes # (auto) 0.3 10 ^3/uL (0-1.3); Monocytes % (auto) 6.6 % (0.0-12.0); Neutrophils # (auto) 2.7 10 ^3/uL (1.6-8.6); Neutrophils % (auto) 51.6 % (37.0-80.0); Nucleated Red Blood Cells % 0.3 %; Platelet Count (auto) 238 10^3/uL (140-450); Red Blood Cells 4.99 10^6/uL (4.0-5.20); Red Cell Distribution Width 15.6 % (11.8-14.3); White Blood Cell 5.3 10^3/uL (4.4-10.8)
[2024-10-25 05:03] LABS: Albumin 4.1 g/dL (3.2-4.8); Alkaline Phosphatase 66 U/L (46-116); Aspartate Aminotransferase 35 U/L (13-40)
[2024-10-25 05:19] LABS: Alanine Aminotransferase 25 U/L (7-40); Chloride 108 mmol/L (98-107); Glucose 165 mg/dL (74-106); Potassium 4.2 mmol/L (3.5-5.1); Sodium 140 mmol/L (136-145)
[2024-10-25 05:21] LABS: Anion Gap 11 (5-15)
[2024-10-25 05:23] LABS: Calcium 9.8 mg/dL (8.7-10.4); Carbon Dioxide 21 mmol/L (20-31)
[2024-10-25 05:27] LABS: Total Protein 6.2 g/dL (5.7-8.2)
[2024-10-25 05:30] LABS: BUN/Creatinine Ratio 18.3 (10.0-20.0); Blood Urea Nitrogen 11 mg/dL (9-23)
[2024-10-25 05:31] LABS: Bilirubin, Total 0.3 mg/dL (0.2-1.0)
[2024-10-25 07:30] VITALS: PULSE 74; RESP 16
[2024-10-25] MEDS: cefTRIAXone 1GM/50ML D5W 50 ML IV SCH (09:40)
[2024-10-25] MEDS: ENOXAPARIN SOD 40 MG/0.4 ML SYRINGE SC SCH (10:27)
[2024-10-25] MEDS: ASPirin 81 mg TAB PO SCH (10:27)
[2024-10-25] MEDS: ACETAMINOPHEN 325 MG TAB PO PRN (11:41)
[2024-10-25 12:39] VITALS: PULSE 78; RESP 20; O2SAT 97
--- NOTE | 2024-10-25 15:24 | DVHPN2 ---
Subjective no chest pain Changes from previous H/P or p: No Changes Cardiovascular: Chest Pain Objective Vitals Vital Signs Date Time Temp Pulse Resp B/P (MAP) Pulse Ox O2 Delivery O2 Flow Rate FiO2 10/25/24 12:39 78 20 97 Room Air* 0 21 10/25/24 07:30 97.9 124/64 (84) 97.9 General Appearance: Alert, Oriented X3 Lungs: Clear to auscultation Cardiovascular: Regular rate, Normal S1, Normal S2 Medications Current Medications Medications Dose Ordered Sig/Feng Route Start Time Stop Time Status Last Admin Dose Admin Aspirin 81 mg DAILY PO 10/25/24 10:00 10/25/24 10:27 81 MG Ondansetron HCl 4 mg Q4HP PRN IV 10/24/24 13:15 Enoxaparin Sodium 40 mg DAILY SC 10/25/24 10:00 10/25/24 10:27 40 MG Acetaminophen 650 mg Q6HP PRN PO 10/24/24 13:15 10/25/24 11:41 650 MG Ceftriaxone Sodium 50 ml @ 100 mls/hr DAILY@09 IV 10/25/24 09:00 10/25/24 09:40 100 MLS/HR Laboratory Results Laboratory Tests 10/25/24 04:19 Chemistry Test 10/25/24 04:19 Albumin 4.1 g/dL (3.2-4.8) Calcium Level 9.8 mg/dL (8.7-10.4) Total Protein 6.2 g/dL (5.7-8.2) LFT Test 10/25/24 04:19 Alanine Aminotransferase (ALT) 25 U/L (7-40) Alkaline Phosphatase 66 U/L (46-116) Aspartate Amino Transferase (AST) 35 U/L (13-40) Total Bilirubin 0.3 mg/dL (0.2-1.0) Urinalysis Test 10/24/24 08:37 Urine Color Yellow (Yellow) Urine Clarity Cloudy (Clear) H Urine pH 5.5 (5.0-9.0) Urine Specific [place] 1.020 (1.001-1.035) Urine Protein Trace (Negative) H Urine Ketones Negative (Negative) Urine Blood Negative /uL (Negative) Urine Nitrite 2+ (Negative) H Urine Bilirubin Negative (Negative) Urine Urobilinogen Normal mg/dL (Negative) Urine Leukocyte Esterase 3+ /uL (Negative) Urine RBC 5 /hpf (0 - 4) Urine WBC Clumps Present /hpf (None Seen) Urine Microscopic WBC 823 /HPF (0-5) H Urine Squamous Epithelial Cells Few /hpf (<5) Urine Bacteria Few /hpf (None Seen) H Urine Mucus Few (None Seen) Urine Glucose Normal mg/dL (Normal) Assessment/Plan Assessment/Plan Chest pain--CHARLOTTE GARNETT presents to ED with chief complaint of 7/10 nonradiating chest pain associated with nausea since this morning at 2:00 a.m. [facility] to recent CVA that occurred last month Complain of mild nonradiating chest pain upon evaluation Chest pain occurred in the past about 2-3 times a month Patient received 324 mg aspirin via EMS personnel Admit to medical-surgical unit ACS protocol Reviewed CBC which is normal Cardiac enzyme negative x3 Mag level pending Twelve lead EKG Reviewed BNP which is normal Chest x-ray shows cardiomegaly 81 mg aspirin daily Echocardiogram pending consult cardiology today Urinary tract infection Patient comments on frequent urinary tract infection complaint of dysuria Urinalysis shows positive nitrate and high bacteria Give IV ceftriaxone now and daily Type 2 DM Hold antidiabetic medications Regular insulin mild a.c. and HS 1800 ADA diet Accu-Cheks per protocol Hypertension Continue antihypertensive agent metoprolol and lisinopril Continue to monitor Reconcile home medication DVT prophylaxis PUD prophylaxis not indicated no history of GERD Labs in a.m. Discussed plan of care with the patient in which all questions concerns have been addressed Plan discussed with: Patient Date of Service: October 25, 2024 Billing Provider: ELIZ HONEYCUTT MD Common Visit Codes: [id number] INP/OBS CARE(HIGH) ELIZ HONEYCUTT MD October 25, 2024 15:24
[2024-10-25 17:30] VITALS: BP 125/76; PULSE 82; RESP 20; TEMP 97.9; O2SAT 93
[2024-10-25 21:00] VITALS: BP 125/68; PULSE 71; RESP 18; TEMP 97.9; O2SAT 98
[2024-10-25] MEDS ORDERED: NITROGLYCERIN 0.4 MG SL TAB SL PRN (22:00)
[2024-10-25] MEDS ORDERED: MORPHINE SULFATE INJ 2 MG/ml SYRG IV PRN (22:00)
[2024-10-25] MEDS: SODIUM CHLOR 0.9% PF (SALINE LOCK) 10ML VIAL/SYR IV SCH (22:47)
[2024-10-26 01:00] VITALS: BP 135/66; PULSE 80; RESP 18; TEMP 98.7; O2SAT 96
[2024-10-26 04:58] VITALS: BP 111/55; PULSE 72; RESP 20; TEMP 97.6; O2SAT 97
[2024-10-26 08:00] VITALS: PULSE 76
--- NOTE | 2024-10-26 08:17 | ECG ---
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
[2024-10-26 09:00] VITALS: BP 130/72; PULSE 73; RESP 18; TEMP 97.6; O2SAT 96
[2024-10-26] MEDS ORDERED: DEXTROSE (50%) 50ML SYRG IV PRN (11:00)
[2024-10-26] MEDS ORDERED: HYDROcodone-ACET 5/325MG TAB PO PRN (11:00)
[2024-10-26] MEDS ORDERED: ONDANSETRON HCL 4 MG/2 ML VIAL IV PRN (11:00)
[2024-10-26] MEDS ORDERED: BACLOFEN 10 MG TAB PO PRN (11:15)
[2024-10-26] MEDS: ACCU-CHEK COMFORT CURVE STRIP VI SCH (11:45)
[2024-10-26 11:50] LABS: LDL Cholesterol 64 mg/dL (< 100); Triglycerides 157 mg/dL (< 150)
[2024-10-26] MEDS: InsuLIN REG 1unit/0.01ml Soln (100units/ml) SC SCH (11:50)
[2024-10-26 11:51] LABS: Cholesterol 115 mg/dL (< 200)
[2024-10-26 11:54] LABS: HDL Cholesterol 35 mg/dL (40-59)
[2024-10-26] MEDS: MORPHINE SULFATE INJ 2 MG/ml SYRG IV PRN (11:56)
--- NOTE | 2024-10-26 12:55 | ECG ---
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
--- NOTE | 2024-10-26 12:55 | ECG ---
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
[2024-10-26 13:00] VITALS: BP 122/68; PULSE 74; RESP 18; TEMP 97.4; O2SAT 95
[2024-10-26] MEDS ORDERED: CIPR500T4 PO (15:38)
--- NOTE | 2024-10-26 16:07 | DVHDS2 ---
Discharge Summary Date of Admission October 24, 2024 at 12:02 Date of Discharge: October 26, 2024 Admitting Diagnosis Chest pain, rule out ACS Labs/Diagnostic Data: Laboratory Results Test 10/26/24 11:40 10/26/24 11:00 10/25/24 04:19 10/24/24 10:16 POC Glucose 275 mg/dl (70-106) D-Dimer, Quantitative 0.33 mg/L FEU (0.0-0.49) Hemoglobin A1c 7.4 % A1C (<5.7) Triglycerides Level 157 mg/dL (< 150) Cholesterol Level 115 mg/dL (< 200) LDL Cholesterol 64 mg/dL (< 100) HDL Cholesterol 35 mg/dL (40-59) White Blood Count 5.3 10^3/uL (4.4-10.8) Red Blood Count 4.99 10^6/uL (4.0-5.20) Hemoglobin 13.8 g/dL (12.2-16.2) Hematocrit 42.3 % (36.0-46.0) Mean Corpuscular Volume 84.7 fL (80.0-100.0) Mean Corpuscular Hemoglobin 27.7 pg (28.0-32.0) Mean Corpuscular Hemoglobin Concent 32.7 g/dL (32.0-36.0) Red Cell Distribution Width 15.6 % (11.8-14.3) Platelet Count 238 10^3/uL (140-450) Mean Platelet Volume 8.3 fL (6.9-10.8) Neutrophils (%) (Auto) 51.6 % (37.0-80.0) Lymphocytes (%) (Auto) 37.4 % (10.0-50.0) Monocytes (%) (Auto) 6.6 % (0.0-12.0) Eosinophils (%) (Auto) 3.1 % (0.0-7.0) Basophils (%) (Auto) 1.3 % (0.0-2.0) Neutrophils # (Auto) 2.7 10 ^3/uL (1.6-8.6) Lymphocytes # (Auto) 2.0 10 ^3/uL (0.4-5.4) Monocytes # (Auto) 0.3 10 ^3/uL (0-1.3) Eosinophils # (Auto) 0.2 10 ^3/uL (0-0.8) Basophils # (Auto) 0.1 10 ^3/uL (0-0.2) Nucleated Red Blood Cells 0.3 % Sodium Level 140 mmol/L (136-145) Potassium Level 4.2 mmol/L (3.5-5.1) Chloride Level 108 mmol/L (98-107) Carbon Dioxide Level 21 mmol/L (20-31) Anion Gap 11 (5-15) Blood Urea Nitrogen 11 mg/dL (9-23) Creatinine 0.64 mg/dL (0.550-1.02) Glomerular Filtration Rate Calc 98 mL/min (>90) BUN/Creatinine Ratio 18.3 (10.0-20.0) Serum Glucose 165 mg/dL (74-106) Calcium Level 9.8 mg/dL (8.7-10.4) Total Bilirubin 0.3 mg/dL (0.2-1.0) Aspartate Amino Transferase (AST) 35 U/L (13-40) Alanine Aminotransferase (ALT) 25 U/L (7-40) Alkaline Phosphatase 66 U/L (46-116) Total Protein 6.2 g/dL (5.7-8.2) Albumin 4.1 g/dL (3.2-4.8) Magnesium Level 1.6 mg/dL (1.6-2.6) Troponin I High Sensitivity 4 ng/L (</=34) Test 10/24/24 08:37 10/24/24 06:37 Urine Color Yellow (Yellow) Urine Clarity Cloudy (Clear) Urine pH 5.5 (5.0-9.0) Urine Specific [place] 1.020 (1.001-1.035) Urine Protein Trace (Negative) Urine Ketones Negative (Negative) Urine Blood Negative /uL (Negative) Urine Nitrite 2+ (Negative) Urine Bilirubin Negative (Negative) Urine Urobilinogen Normal mg/dL (Negative) Urine Leukocyte Esterase 3+ /uL (Negative) Urine RBC 5 /hpf (0 - 4) Urine WBC Clumps Present /hpf (None Seen) Urine Microscopic WBC 823 /HPF (0-5) Urine Squamous Epithelial Cells Few /hpf (<5) Urine Bacteria Few /hpf (None Seen) Urine Mucus Few (None Seen) Urine Glucose Normal mg/dL (Normal) B-Type Natriuretic Peptide 7.19 pg/mL (0-100) Other Laboratory Tests 10/25/24 04:19 Brief Hx & Hospital Course: History of Present Illness This is a 64-year-old female with history of hypertension, hyperlipidemia, DM, CAD, CVA, [place], ulcerative colitis, narcolepsy, sleep apnea and diverticular disease who presents to ED with chief complaint of 7/10 chest pain. The patient resides at [facility] and relates recurrent chest pain and that it has occurred in the past occurring about two to 3 times a month. The patient denied recent injury or trauma to her chest, changes in diet and recent life stressors. EMS states patient was administered 324 mg of aspirin and 4 mg of Zofran with little relief noted. Patient notes she currently has left-sided deficit from a CVA she had last month and is being taking care of currently by the [facility] due to this. The patient is concerned about her symptoms and would like to be further evaluated and treated. The patient will be admitted under hospitalist care to the medical-surgical unit for evaluation and treatment. Upon evaluation the patient does complain of some mild chest pain that is nonradiating. The patient denies fever, chills, headache, dizziness, palpitation, shortness of breaths, nausea, vomiting, abdominal pain, diarrhea, constipation and other associated symptoms. The plan has been discussed with the patient and primary RN in which all questions concerns have been addressed. Course of hospitalization: Patient had negative troponins x3. Twelve lead ECG negative for any ST changes. Patient now only complains of her chronic back pain. Patient was has been ambulating without any noted arrhythmias or O2 supplementation requirements. Patient was requesting to be discharged home instead of being transferred back to [facility]. Reviewing the patient's medical history, the patient was found to have left heart catheterization in February 2024 without any noted blockages. At this time the patient was deemed stable to be discharged home and continue all previous home medications. She states that she will obtain her belongings and medication were [facility] for which she will continue at home. She was instructed to follow up with her PCP and her chronic pain management doctor once being discharged home. Physical examination General: Alert and Oriented x3. No acute distress. Well-nourished. Eyes: EOMI. Anicteric. HENT: Moist mucous membranes. Lungs: Clear to auscultation bilaterally. No accessory muscle use. Cardiovascular: Regular rate and rhythm. No murmur. No JVD. Abdomen: Soft, non-tender and non-distended. No palpable masses. Extremities: No edema. Non-tender. Skin: No rashes or lesions. Warm. Neurologic: No focal neurological deficits. CN II-XII grossly intact, but not individually tested. Psychiatric: Cooperative. Appropriate mood and affect. Total time spent with patient discussing and formulating plan of care: 35 minutes. This medical document was created using an electronic medical record system with uTest dictation system. Although this document has been carefully reviewed, there may still be some phonetic and typographical errors. These areas are purely typographical due to imperfections of the software programs, and do not reflect any compromise in the patient's medical care. Condition at Discharge: Fair Final Diagnosis/Problems List Chest pain, ACS ruled out, etiology anxiety and musculoskeletal in natures Secondary diagnosis: Obesity -anxiety disorder -UTI -primary hypertension -recent CVA Discharge Disposition: Home Discharge Instruct/Medications Diet: Consistent carbohydrate, Cardiac 2g Na,low cholest Activity: No Restrictions, As Tolerated Activity comment: Use home walker Follow Up/Referral: PCP in 1-2 weeks Pain management in 1-2 weeks Medications: Continue all home medications Cipro 500mg po bid x 5 days 36 Discharge Statement: "Patient was advised to return to the ER or call 911 if any headaches, dizziness, shortness of breath, chest pain, abdominal pain, bleeding, fevers, or worsening of medical condition. Patient was counseled about treatment plan, medications, possible side effects, patientverbalized understanding. All questions were answered to the best of my ability. This discharge took greater then 30 minutes in planning, reviewing documentation, counseling the patient, and discussing with other team members." ASSESSMENT ASSESSMENT Assessment Chest pain, ACS ruled out, etiology anxiety and musculoskeletal in natures Date of Service: October 26, 2024 Billing Provider: JUSTIN ONTIVEROS NP Common Visit Codes: [id number]/OBS DISCH DAY >30min JUSTIN ONTIVEROS NP October 26, 2024 16:07
--- NOTE | 2024-10-26 16:47 | DVHINCON2 ---
Date of service: October 26, 2024 Reason for Consultation Chest Pain History of Present Illness This is a 64-year-old female resident of [facility] known outside to our practice who initially presented with chest discomfort that had reportedly awoke her from sleep for which she was subsequently transferred to this facility for further evaluation and management. Upon ED arrival, initial 12-lead electrocardiogram had revealed sinus rhythm at 72bpm, with no evidence for acute ischemic changes. Serial HS troponin trend was found negative x 3. D- Dimer was found within normal range. Of note, patient did undergo previous cardiac catheterization (03/09/2024) which had revealed no significant coronary artery disease. LDL it optimized at 64. Echocardiogram (09/05/2024) had revealed a preserved LVEF of 65%. At present, patient denies any further chest pain. Denies any shortness of breath, palpitations, dizziness, syncope, or any further cardiac related symptoms. As the patient presented with chest discomfort, Cardiology services were involved by primary team request for cardiac aspects of care. Past Medical History Past medical history includes morbid obesity, status post multiple CVA, hypertension, hyperlipidemia, diabetes mellitus. Echocardiogram of September 05, 2024 had revealed ejection fraction of 65%, aortic valve area of 1.1 centimeter sq and peak/mean pressure gradient across aortic valve of 44/25 mm Hg. Left heart catheterization of March 09, 2024 has been nonrevealing of any significant coronary disease Past Surgical History Reviewed Family History: Colon cancer G8 MOTHER, Depression G8 MOTHER, Diabetes mellitus G8 MOTHER, G8 BROTHER Family history: Diabetes mellitus G8 MOTHER, (mother) G8 BROTHER (older brother) Family history: Hypertension G8 BROTHER (brothers) Ischemic heart disease G8 MOTHER, Prostate carcinoma G8 FATHER, Allergies: Coded Allergies: Sulfa Drugs (Verified Allergy, Mild, rash, 08/13/24) Sulfa Antibiotics (Unverified Allergy, Unknown, 09/05/24) Indomethacin (Verified Adverse Reaction, Mild, migraine, 08/13/24) Home Meds Active Scripts Ciprofloxacin Hcl (Ciprofloxacin Hcl) 500 Mg Tab, 5 TAB PO BID for 5 Days, #10 TAB Prov:JUSTIN ONTIVEROS NP 10/26/24 Ciprofloxacin Hcl (Cipro) 500 Mg Tab, 1 TAB PO BID, #20 TAB Prov:CECILIA BRITO MD 10/07/24 Tramadol HCl (Tramadol HCl) 50 Mg Tab, 50 MG PO TID PRN, #30 TAB Prov:CECILIA BRITO MD 10/07/24 Lorazepam (ATIVAN TABLET) 0.5 Mg Tb, 1 TAB PO TID PRN, #30 TAB Prov:CECILIA BRITO MD 10/07/24 Gabapentin (Gabapentin) 300 Mg Cap, 300 MG PO TID for 30 Days, #90 CAP 3 Refills Prov:GUADALUPE TAOMY Shabana DO 08/16/24 Docusate Sodium (Docusate Sodium) 100 Mg Cap, 100 MG PO BIDPRN PRN for 15 Days, #15 CAP Prov:MOUNIKA TILLMAN MD 04/20/24 Fluticasone Propionate (Nasal) (Fluticasone Propionate) 50 Mcg/Act Spr, 50 MCG EACHNOSTRI Q12HR for 30 Days, #2 SPRAY Prov:MOUNIKA TILLMAN MD 04/17/24 Insulin Regular (Human) (Novolin R Flexpen) 100 Unit/Ml Inj, 15 UNIT IJ TID for 28 Days, #100 INJ 15 units before meals, cheack blood sugar 2 hours after meal and add sliding scale Prov:MOUNIKA TILLMAN MD 04/17/24 Insulin Glargine (Lantus Solostar) 100 Unit/Ml Inj, 90 UNITS SC DAILY for 28 Days, #30 INJ Prov:MOUNIKA TILLMAN MD 04/17/24 Reported Medications Mesalamine (Canasa) 1,000 Mg Sup, 400 MG RE BID, SUPP 08/28/24 Metoprolol Tartrate (Metoprolol Tartrate) 25 Mg Tab, 25 MG PO DAILY for 30 Days, MG 08/28/24 Semaglutide (Ozempic) 2 Mg/3 Ml Inj, 2 MG SC, INJ 08/13/24 Metoprolol Tartrate (Metoprolol Tartrate) 25 Mg Tab, 1 TAB PO BID, #180 TAB 1 Refill 08/13/24 Mesalamine (Mesalamine Dr) 400 Mg Cap, 400 MG PO, CAP 08/13/24 Duloxetine Hcl (Cymbalta) 60 Mg Cap, 1 CAP PO DAILY, #90 CAP 3 Refills 08/13/24 Ondansetron HCl (Ondansetron) 4 Mg Tab, 4 MG PO DAILY PRN for NAUSEA 07/15/23 Pitolisant Hydrochloride (Wakix) 17.8 Mg Tab, 2 TAB PO DAILY for NARCOLEPSY for 90 Days, #180 11/02/21 Lisinopril (Lisinopril) 10 Mg Tab, 10 MG PO DAILY for 30 Days, MG 07/26/16 Current Medications Current Medications Medications (Trade) Dose Ordered Sig/Feng Route PRN Reason Start Time Stop Time Status Last Admin Nitroglycerin (Ntrostat Sublingual) 0.4 mg Q5MINP PRN SL FOR CHEST PAIN 10/25/24 22:00 Sodium Chloride (Saline Lock Ns) 10 ml Q8HR IV 10/25/24 22:00 10/26/24 06:13 Morphine Sulfate 2 mg [id number] PRN IV FOR CHEST PAIN 10/25/24 22:00 Morphine Sulfate 1 mg Q4HPRN PRN IV SEVERE PAIN (7-10 PAIN SCALE) 10/26/24 11:00 10/26/24 11:56 Acetaminophen/ Hydrocodone Bitart ([place] 5/325MG Tab) 1 tab Q6HPRN PRN PO MODERATE PAIN (4-6 PAIN SCALE) 10/26/24 11:00 Ondansetron HCl (Zofran) 4 mg Q6HP PRN IV NAUSEA / VOMITING 10/26/24 11:00 Diagnostic Test (Pha) (Accu-Chek Comfort Curve T) 1 strip ACHS 10/26/24 11:30 10/26/24 11:45 Insulin Human Regular (InsuLIN R) ACHS SC 10/26/24 11:30 10/26/24 11:50 Dextrose 50 ml UD PRN IV Blood Sugar LESS THAN 60 10/26/24 11:00 Baclofen (Liorisal Tablet) 5 mg Q8HP PRN PO FOR MUSCLE SPASM 10/26/24 11:15 Review of Systems A 14-point review of systems is negative unless otherwise noted above Vital Signs Vital Signs Date Time Temp Pulse Resp B/P (MAP) Pulse Ox O2 Delivery O2 Flow Rate FiO2 10/26/24 13:00 97.4 74 18 122/68 (86) 95 97.4 10/26/24 08:05 Nasal Cannula* 2 28 Physical Exam Heart: S1 and S2 regular. The patient is in sinus rhythm. Lungs: Scattered rhonchi. Abdomen: Benign. Extremities: Distal pulses palpable, 2+. No evidence for peripheral edema Labs/Diagnostic Data Labs Test 10/26/24 11:40 10/26/24 11:00 10/25/24 04:19 10/24/24 10:16 Range/Units POC Glucose 275 H 70-106 mg/dl D-Dimer, Quantitative 0.33 0.0-0.49 mg/L FEU Hemoglobin A1c 7.4 H <5.7 % A1C Triglycerides Level 157 H < 150 mg/dL Cholesterol Level 115 < 200 mg/dL LDL Cholesterol 64 < 100 mg/dL HDL Cholesterol 35 L 40-59 mg/dL White Blood Count 5.3 4.4-10.8 10^3/uL Red Blood Count 4.99 4.0-5.20 10^6/uL Hemoglobin 13.8 12.2-16.2 g/dL Hematocrit 42.3 36.0-46.0 % Mean Corpuscular Volume 84.7 80.0-100.0 fL Mean Corpuscular Hemoglobin 27.7 L 28.0-32.0 pg Mean Corpuscular Hemoglobin Concent 32.7 32.0-36.0 g/dL Red Cell Distribution Width 15.6 H 11.8-14.3 % Platelet Count 238 140-450 10^3/uL Mean Platelet Volume 8.3 6.9-10.8 fL Neutrophils (%) (Auto) 51.6 37.0-80.0 % Lymphocytes (%) (Auto) 37.4 10.0-50.0 % Monocytes (%) (Auto) 6.6 0.0-12.0 % Eosinophils (%) (Auto) 3.1 0.0-7.0 % Basophils (%) (Auto) 1.3 0.0-2.0 % Neutrophils # (Auto) 2.7 1.6-8.6 10 ^3/uL Lymphocytes # (Auto) 2.0 0.4-5.4 10 ^3/uL Monocytes # (Auto) 0.3 0-1.3 10 ^3/uL Eosinophils # (Auto) 0.2 0-0.8 10 ^3/uL Basophils # (Auto) 0.1 0-0.2 10 ^3/uL Nucleated Red Blood Cells 0.3 % Sodium Level 140 136-145 mmol/L Potassium Level 4.2 3.5-5.1 mmol/L Chloride Level 108 H 98-107 mmol/L Carbon Dioxide Level 21 20-31 mmol/L Anion Gap 11 5-15 Blood Urea Nitrogen 11 9-23 mg/dL Creatinine 0.64 0.550-1.02 mg/dL Glomerular Filtration Rate Calc 98 >90 mL/min BUN/Creatinine Ratio 18.3 10.0-20.0 Serum Glucose 165 H 74-106 mg/dL Calcium Level 9.8 8.7-10.4 mg/dL Total Bilirubin 0.3 0.2-1.0 mg/dL Aspartate Amino Transferase (AST) 35 13-40 U/L Alanine Aminotransferase (ALT) 25 7-40 U/L Alkaline Phosphatase 66 46-116 U/L Total Protein 6.2 5.7-8.2 g/dL Albumin 4.1 3.2-4.8 g/dL Magnesium Level 1.6 1.6-2.6 mg/dL Troponin I High Sensitivity 4 </=34 ng/L Test 10/24/24 08:37 10/24/24 06:37 Range/Units Urine Color Yellow Yellow Urine Clarity Cloudy H Clear Urine pH 5.5 5.0-9.0 Urine Specific [place] 1.020 1.001-1.035 Urine Protein Trace H Negative Urine Ketones Negative Negative Urine Blood Negative Negative /uL Urine Nitrite 2+ H Negative Urine Bilirubin Negative Negative Urine Urobilinogen Normal Negative mg/dL Urine Leukocyte Esterase 3+ Negative /uL Urine RBC 5 0 - 4 /hpf Urine WBC Clumps Present None Seen /hpf Urine Microscopic WBC 823 H 0-5 /HPF Urine Squamous Epithelial Cells Few <5 /hpf Urine Bacteria Few H None Seen /hpf Urine Mucus Few None Seen Urine Glucose Normal Normal mg/dL B-Type Natriuretic Peptide 7.19 0-100 pg/mL Plan/Recommendation This is a 64-year-old female resident of [facility] known outside to our practice who initially presented with chest discomfort that had reportedly awoke her from sleep for which she was subsequently transferred to this facility for further evaluation and management. Upon ED arrival, initial 12-lead electrocardiogram had revealed sinus rhythm at 72bpm, with no evidence for acute ischemic changes. Serial HS troponin trend was found negative x 3. D- Dimer was found within normal range. Chest x-ray had revealed cardiomegaly with mild pulmonary vascular congestion. Of note, patient did undergo previous cardiac catheterization (03/09/2024) which had revealed no significant coronary artery disease. LDL it optimized at 64. Echocardiogram (09/05/2024) had revealed a preserved LVEF of 65%. At present, patient denies any further chest pain. Denies any shortness of breath, palpitations, dizziness, syncope, or any further cardiac related symptoms. As the patient presented with chest discomfort, Cardiology services were involved by primary team request for cardiac aspects of care. Past medical history includes morbid obesity, status post multiple CVA, hypertension, hyperlipidemia, diabetes mellitus. Echocardiogram of September 05, 2024 had revealed ejection fraction of 65%, aortic valve area of 1.1 centimeter sq and peak/mean pressure gradient across aortic valve of 44/25 mm Hg. Left heart catheterization of March 09, 2024 has been nonrevealing of any significant coronary disease Chest pain (atypical), ACS not considered Cerebral vascular accident, history of Hyperlipidemia, LDL of 64 Hypertension, controlled Diabetes mellitus Morbid obesity CARDIAC SUGGESTIONS FOR MANAGEMENT: Recognizing previous cardiac catheterization findings in addition to a serial negative HS troponin trend, ischemic workup at this point is not indicated To proceed with optimized medical therapy and risk factor modification as concurrent conditions permit Follow-up electrolytes and kidney function tests and correct abnormalities Management of co-morbidities as per primary team Cardiology follow-up as outpatient is advised Proceed with close rate and rhythm surveillance Proceed with close hemodynamic surveillance Proceed with optimized blood pressure control Transfuse to sustain HGB level above 7.0 Sustain Magnesium level greater than 2.0 Sustain Potassium level greater than 4.0 Follow up renal function and electrolytes Management in telemetry Will proceed to follow from a cardiac perspective Further recommendations per clinical progression All available diagnostic labs, EKG's, and images were personally reviewed Patient's status, findings, and plan of care was reviewed and discussed with supervising physician Dr. Koo, who is in agreement with current plan of care. Plan of care discussed with and agreed upon by patient / primary RN Prognosis: Guarded Thank you for allowing me to participate in the care of this patient. Further recommendations based on patients clinical course and progression, primary attending, and other consultants. Will continue to follow with primary attending. If you have any questions or concerns, please do not hesitate to contact me. A total of 75 minutes was spent reviewing the patient record, examining the patient, making a diagnostic and therapeutic plan, discussing this plan with medical personnel, following up on diagnostic studies and following the patient for clinical stability excluding any and all procedures. At least 50% of this time was spent in direct, [id number] contact. Plan discussed with: Patient KAYLIN BERMUDEZ PROFESSOR OF VISUAL ARTS October 26, 2024 16:47
[2024-10-26 17:30] VITALS: BP 111/65; PULSE 87; RESP 19; TEMP 97.9; O2SAT 98
== END 2024-10-26 18:45 | disposition home or self-care (01) | DRG 313 ==
LOC: EDBD 06:26 → EDUNIT# 06:26 → ER 06:26 → OVERFLOW 12:02 → EAST 10-25 17:18 → TELE-EAST 10-26 05:18
PROVIDERS: ADMIT Nurse Practitioner Acute Care; ATTEND Nurse Practitioner Acute Care
DX: R07.89 Other chest pain (principal); I69.354 Hemiplegia and hemiparesis following cerebral infarction affecting left non-dominant side; N39.0 Urinary tract infection, site not specified; Z68.41 Body mass index [BMI] 40.0-44.9, adult; E11.9 Type 2 diabetes mellitus without complications; F41.9 Anxiety disorder, unspecified; I25.10 Atherosclerotic heart disease of native coronary artery without angina pectoris; G47.30 Sleep apnea, unspecified; I10 Essential (primary) hypertension; E78.5 Hyperlipidemia, unspecified; E66.01 Morbid (severe) obesity due to excess calories; G89.29 Other chronic pain; M54.9 Dorsalgia, unspecified; Z88.2 Allergy status to sulfonamides; Z91.041 Radiographic dye allergy status; Z79.2 Long term (current) use of antibiotics; Z79.899 Other long term (current) drug therapy; Z79.4 Long term (current) use of insulin; Z90.49 Acquired absence of other specified parts of digestive tract; Z98.891 History of uterine scar from previous surgery; Z98.1 Arthrodesis status; Z79.82 Long term (current) use of aspirin; Z80.0 Family history of malignant neoplasm of digestive organs; Z81.8 Family history of other mental and behavioral disorders; Z83.3 Family history of diabetes mellitus; Z82.49 Family history of ischemic heart disease and other diseases of the circulatory system
CPT/HCPCS: 36415; 71045; 80048; 80053; 80061; 81001; 82962; 83036; 83735; 83880; 84484; 85025; 85379; 93005; 99291; G0378; J1815; Q0162

== ENCOUNTER 2025-01-27 04:28 | Inpatient (IN) | payer MEDICARE, BC, MEDICAID ==
[~2025-01-27] VITALS: Ht 167.6 cm; Wt 120.0 kg
[~2025-01-27 04:28] MED LIST changes: +ASPI81CH59 PO; +CIPR500T4 PO; +CLON0.5T3 PO; +HYDR-4902 PO; +MAA30LQ PO; +OMEP20TA PO; +PANT40TA2 PO; +SEMA4INJ SC; +ZOFR4T PO
[2025-01-27 05:20] LABS: Mean Corpuscular Volume 82.4 fL (80.0-100.0); Nucleated Red Blood Cells % 0.2 %
[2025-01-27 05:26] LABS: Hematocrit 38.5 % (36.0-46.0); Hemoglobin 12.9 g/dL (12.2-16.2); Mean Corpuscular Hemoglobin 27.6 pg (28.0-32.0)
[2025-01-27 05:30] LABS: Chloride 105 mmol/L (98-107); Potassium 3.7 mmol/L (3.5-5.1); Sodium 137 mmol/L (136-145)
[2025-01-27 05:31] LABS: Anion Gap 8 (5-15); Carbon Dioxide 24 mmol/L (20-31)
[2025-01-27 05:32] LABS: Calcium 8.8 mg/dL (8.7-10.4)
[2025-01-27 05:42] LABS: BUN/Creatinine Ratio 6.6 (10.0-20.0); Blood Urea Nitrogen < 5 mg/dL (9-23); Glucose 274 mg/dL (74-106)
--- NOTE | 2025-01-27 06:04 | ECG ---
[facility] Test Date: 2025-01-27 Test Time: 04:37:25 Pat Name: ELVIS CONCEPCION Department: [facility] ED Patient ID: [id number] Room: 0298T Gender: F [address] Stenographer: kat : 1960 Requested By: BONG COTE Order Number: [id number] Reading MD: Alonzo Aceves Measurements Intervals [place] Rate: 69 P: 45 [place]: 161 QRS: -30 QRSD: 97 T: 40 QT: 420 QTc: 450 Interpretive Statements Sinus rhythm Left axis deviation Electronically Signed On 02-01-2025 17:53:09 PDT by Alonzo Aceves Please click the below link to view image of tracing.
--- NOTE | 2025-01-27 10:00 | ECG ---
[facility] Test Date: 2025-01-27 Test Time: 06:09:30 Pat Name: ELVIS CONCEPCION Department: Room: 0298T Gender: F Independent Living Specialist: RUSS : 1960 Requested By: BONG COTE Order Number: [id number] Reading MD: Alonzo Aceves Measurements Intervals [place] Rate: 67 P: 39 DE: 167 QRS: -27 QRSD: 297 T: 47 QT: 409 QTc: 432 Interpretive Statements Sinus rhythm Inferior infarct, acute (LCx) Anterior infarct, acute Lateral leads are also involved Artifact in lead(s) II,III,aVR,aVL,aVF,V1,V5,V6 Electronically Signed On 02-01-2025 17:54:31 PDT by Alonzo Aceves Please click the below link to view image of tracing.
--- NOTE | 2025-01-27 10:11 | ED.PDOC ---
HPI Comments 64-year-old female presents with a chief complaint of chest pain x 21:30 onset last night. Patient states that she was being cared for at [facility] and started to have chest pain around 21:30 last night. Patient mentions that the staff at the facility gave her 3 NTG without relief. Patient reports that her pain is localized to her left chest, nonradiating, describes as sharp. Patient also reports that she is nauseated, but has no active vomiting at this time. Chief Complaint: Chest Pain Time Seen by MD: 10:00 Primary Care Provider: UNKNOWN Reviewed Notes: Medications, Allergies Allergies: Coded Allergies: Sulfa Antibiotics (Unverified Allergy, Unknown, 09/05/24) Home Meds Active Scripts Metoprolol Tartrate (Metoprolol Tartrate) 25 Mg Tab, 1 TAB PO BID, #60 TAB 5 Refills Prov:MOE CHEEMA CUSHION WORKER 01/03/25 Hydrocodone-Acetaminophen (Hydrocodone Bitartrate/AC 5-325 mg) 1 Tab Tab, 1 TAB PO TID PRN for 5 Days, #15 TAB Prov:MOUNIKA TILLMAN MD 12/07/24 Alum & Mag Hydrox-Simethicone (Maalox Plus) 30 Ml Ss, 30 ML PO Q8HR for 30 Days, #1200 ML 2 Refills Prov:MOUNIKA TILLMAN MD 12/07/24 Pantoprazole Sodium Sesquihydr (Protonix) 40 Mg Tab, 40 MG PO BID for 30 Days, #60 TAB Prov:MOUNIKA TILLMAN MD 12/07/24 Clonazepam (KlonoPIN TABLET) 0.5 Mg Tb, 1 TAB PO BID for 15 Days, #30 TAB 1 Refill Prov:MOUNIKA TILLMAN MD 12/07/24 Reported Medications Omeprazole (Gnp Omeprazole) 20 Mg Tab, 20 MG PO DAILY, TAB 12/04/24 Ondansetron Odt 4MG Tab (ZOFRAN PO) 4 Mg Tb, 4 MG PO PRN for NAUSEA OR VOMITING, TAB ODT TAB-DISSOLVE IN MOUTH, THEN SWALLOW 12/04/24 Insulin Glargine (Lantus Solostar) 100 Unit/Ml Inj, 45 UNIT SC BID 12/04/24 Aspirin (Aspirin Low Dose) 81 Mg Chw, 81 MG PO DAILY, TAB.CHEW 12/04/24 Pitolisant Hydrochloride (Wakix) 17.8 Mg Tab, 2 TAB PO DAILY 12/04/24 Lorazepam (Ativan) 0.5 Mg Tab, 2 TAB PO BID PRN for ANXIETY, #30 TAB 09/05/24 Semaglutide (Ozempic) 4 Mg/3 Ml Inj, 2 MG SC QWEEKLY, INJ 09/05/24 Lisinopril (Lisinopril) 10 Mg Tab, 1 TAB PO DAILY 09/05/24 Mesalamine (Mesalamine Dr) 400 Mg Cap, 2 CAP PO BID 09/05/24 Information Source: Patient Mode of Arrival: EMS Severity: Moderate Timing: Hours Duration: Since onset Prehospital treatment: 12 Lead EKG, Electrical Tester Battery, NTG Location: Chest (L) Radiation: No Radiation Quality: Sharp Onset: At Rest Cardiac Risk Factors: Hyperlipidemia, HTN, Diabetes PE Risk Factors: None History of: Similar pain in past Past Medical History PAST MEDICAL HISTORY: CAD, CVA, DM, High Lipids, HTN, [place] Surgical History: Appendectomy, BTL, Cholecystectomy, , Hernia Repair APPLICATION ENGINEER History: Denies all APPLICATION ENGINEER Hx Family History Family History: Family hx of heart rimma Social History Smoker: Non-Smoker Alcohol: Rarely Drugs: Denies Drug Use Lives In: Home Constitutional: denies: chills, diaphoresis, fatigue, fever, malaise, sweats, weakness, others EENTM: denies: blurred vision, double vision, ear bleeding, ear discharge, ear drainage, ear pain, ear ringing, eye pain, eye redness, hearing loss, mouth pain , mouth swelling, nasal discharge, nose bleeding, nose congestion, nose pain, photophobia, tearing, throat pain, throat swelling, voice changes, others Respiratory: denies: cough, hemoptysis, orthopnea, SOB at rest, shortness of breath, SOB with excertion, stridor, wheezing, others Cardiovascular: reports: chest pain; denies: dizzy spells, diaphoresis, Dyspnea on exertion, edema, irregular heart beat, left arm pain, lightheadedness, palpitations, PND, syncope, others Gastrointestinal: reports: nausea; denies: abdomen distended, abdominal pain, blood streaked bowels, constipated, diarrhea, dysphagia, difficulty swallowing, hematemesis, melena, poor appetite, poor fluid intake, rectal bleeding, rectal pain, vomiting, others Genitourinary: denies: abnormal vagina bleeding, burning, dyspareunia, dysuria, flank pain, frequency, hematuria, incontinence, pain, , vagina discharge, urgency, others Neurological: denies: dizziness, fainting, headache, left sided numbness, left sided weakness, numbness, paresthesia, pre-existing deficit, right sided numbness, right sided weakness, seizure, speech problems, tingling, tremors, weakness, others Musculoskeletal: denies: back pain, gout, joint pain, joint swelling, muscle p ain, muscle stiffness, neck pain, others Integumetry: denies: bruises, change in color, change in hair/nails, dryness, laceration, lesions, lumps, rash, wounds, others Allergic/Immunocompromised: denies: Difficulty Healing, Frequent Infections, Hives, Itching, others Hematologic/Lymphatic: denies: anemia, blood clots, easy bleeding, easy bruising, swollen glands, others Endocrine: denies: excessive hunger, excessive sweating, excessive thirst, excessive urination, flushing, intolerance to cold, intolerance to heat, unexplained weight gain, unexplained weight loss, others Psychiatric: denies: anxiety, bipolar disorder, depression, hopeless, panic disorder, schizophrenia, sleepless, suicidal, others All Other Systems: Reviewed and Negative Physical Exam General Appearance: Mild Distress, Obese HEENT: Normal ENT Inspection, PERRL/EOMI, Pharynx Normal, TMs Normal Neck: Limited Range of Motion, Normal, Normal Inspection, Tender Lateral Respiratory: Chest Non-Tender, Lungs Clear, No Accessory Muscle Use, No Respiratory Distress, Normal Breath Sounds Cardiovascular: No Edema, No JVD, No Murmur, No Gallop, Normal Peripheral Pulses, Regular Rate/Rhythm Breast Exam: Deferred Gastrointestinal: No Organomegaly, Non Tender, No Pulsatile Mass, Normal Bowel Sounds, Soft Genitalia: Deferred Pelvic: Deferred Rectal: Deferred Extremities: No calf tenderness, Normal capillary refill, Normal inspection, Normal range of motion, Non-tender, No pedal edema Musculoskeletal : Apperance: Normal Neurologic: Alert, ms access database developer II-XII nml as Tested, No Motor Deficits, Normal Affect, Normal Mood, No Sensory Deficits Cerebellar Function: Normal Reflexes: Normal Skin: Dry, Normal Color, Warm Peripheral Pulses: 1+ carotid (R), 1+ carotid (L) Lymphatic: No Adenopathy EKG EKG : Pulse Rate (adult): 69 [place]: LAD Cardiac Rhythm: NSR Was a procedure done? Was a procedure done?: No CP Differential Dx Differential Diagnosis: Angina, Anxiety / Panic Attack, Electrolyte Disorder, Heart Failure, [place] Differential Diagnosis: HTN Essential Differential Diagnosis: Angina, Chest Wall Pain, Costochondritis, Esophageal reflux/spasm, Gastritis, Myocardial Infarction, Pneumonia X-Ray, Labs, Meds, VS Vital Signs Date Time Temp Pulse Resp B/P (MAP) Pulse Ox O2 Delivery O2 Flow Rate FiO2 01/27/25 10:22 69 01/27/25 06:09 67 01/27/25 04:37 69 01/27/25 04:30 98.2 84 18 153/83 95 98.2 Lab Test 01/27/25 06:15 01/27/25 04:54 Range/Units Troponin I High Sensitivity < 3 L < 3 L </=34 ng/L White Blood Count 5.9 4.4-10.8 10^3/uL Red Blood Count 4.67 4.0-5.20 10^6/uL Hemoglobin 12.9 12.2-16.2 g/dL Hematocrit 38.5 36.0-46.0 % Mean Corpuscular Volume 82.4 80.0-100.0 fL Mean Corpuscular Hemoglobin 27.6 L 28.0-32.0 pg Mean Corpuscular Hemoglobin Concent 33.6 32.0-36.0 g/dL Red Cell Distribution Width 16.3 H 11.8-14.3 % Platelet Count 232 140-450 10^3/uL Mean Platelet Volume 8.6 6.9-10.8 fL Neutrophils (%) (Auto) 69.9 37.0-80.0 % Lymphocytes (%) (Auto) 20.0 10.0-50.0 % Monocytes (%) (Auto) 7.5 0.0-12.0 % Eosinophils (%) (Auto) 1.8 0.0-7.0 % Basophils (%) (Auto) 0.8 0.0-2.0 % Neutrophils # (Auto) 4.1 1.6-8.6 10 ^3/uL Lymphocytes # (Auto) 1.2 0.4-5.4 10 ^3/uL Monocytes # (Auto) 0.4 0-1.3 10 ^3/uL Eosinophils # (Auto) 0.1 0-0.8 10 ^3/uL Basophils # (Auto) 0 0-0.2 10 ^3/uL Nucleated Red Blood Cells 0.2 % Sodium Level 137 136-145 mmol/L Potassium Level 3.7 3.5-5.1 mmol/L Chloride Level 105 98-107 mmol/L Carbon Dioxide Level 24 20-31 mmol/L Anion Gap 8 5-15 Blood Urea Nitrogen < 5 L 9-23 mg/dL Creatinine 0.76 0.550-1.02 mg/dL Glomerular Filtration Rate Calc 87 >90 mL/min BUN/Creatinine Ratio 6.6 L 10.0-20.0 Serum Glucose 274 H 74-106 mg/dL Calcium Level 8.8 8.7-10.4 mg/dL B-Type Natriuretic Peptide 20.09 0-100 pg/mL X-Ray, Labs, Meds, VS Comment Course in the emergency department patient came in complaining of persistent chest pain her blood pressure is 153/83 the chest x-ray shows small pleural effusion EKG shows normal sinus rhythm at 69 with NAD CBC normal BNP negative Troponin three and three Blood sugar 274 BNP 20 Patient will be in hospital for observation Cardiology will be consulted Time of 1ST Reevaluation: 10:30 Reevaluation 1ST: Unchanged Time of 2ND Reevaluation: 10:19 Reevaluation 2ND: Unchanged Consultation: Cardiology Patient Education/Counseling: Diagnosis, Treatment, Prognosis Family Education/Counseling: Diagnosis, Treatment, Prognosis, No Family Present SEPSIS Sepsis Screen Date sepsis recognized/suspect: Jan 27, 2025 Time Sepsis recognized/suspect: 429 Recent Procedure: No On Antibiotic Therapy: No Respiratory Rate >20: No Heart Rate >90: No Temp<36 C (96.8 F) or >38.3 C: No SBP <90 or MAP <65 mmHG: No New Acute Mental Status Change: No Is the patient on CPAP, BIPAP,: No Physician Orders Chest Xray 1 View (01/27/25 05:50) Vital Signs Q1HR (01/27/25 04:36) Vital Signs Date Time Temp Pulse Resp B/P (MAP) Pulse Ox O2 Delivery O2 Flow Rate FiO2 01/27/25 10:22 69 01/27/25 06:09 67 01/27/25 04:37 69 01/27/25 04:30 98.2 84 18 153/83 95 98.2 Laboratory Tests Test 01/27/25 04:54 White Blood Count 5.9 10^3/uL (4.4-10.8) Departure 1 Departure Time of Disposition: 10:20 Impression: Primary Impression: Chest pain of unknown etiology Additional Impressions: Uncontrolled diabetes mellitus Qualified Codes: E11.65 - Type 2 diabetes mellitus with hyperglycemia Obesity (BMI 35.0-39.9 without comorbidity) Pleural effusion Disposition: ADMITTED INPATIENT Admit to: [facility] Condition: Fair Critical Care Note Critical Care Time?: No Stability Stability form required: No Heart Score Heart Score: Heart Score Response (Comments) Value History Slightly Suspicious 0 EKG Normal 0 Age >65 2 Risk Factors >3 or Hx ASHD 2 Troponin Normal limit 0 Total 4 I personally scribed for CHRISTA MAURO MD ([email or web address]) on 01/27/25 at 10:11. Electronically submitted by Miguel Eason ([email or web address]). CHRISTA MAURO MD Jan 27, 2025 10:11
[2025-01-27] MEDS ORDERED: ATOR40TA52 PO (14:14)
[2025-01-27] MEDS ORDERED: ACETAMINOPHEN 325 MG TAB PO PRN (14:15)
[2025-01-27] MEDS ORDERED: NITROGLYCERIN 0.4 MG SL TAB SL PRN (14:15)
[2025-01-27 14:33] LABS: Urine Protein, UAD Negative (Negative)
--- NOTE | 2025-01-27 14:35 | DVHHP2 ---
History of Present Illness Reason for Visit: Chest pain History of Present Illness Dara Anthony is a 64-year-old female with past medical history of hypertension, hyperlipidemia, diabetes, prior TIA, narcolepsy, coronary artery disease, sleep apnea, and chronic pain who comes to the hospital complaining of epigastric chest pain. She states the pain began last night about 0, and had associated nausea and headache. She is currently at [facility]. She was given sublingual NTG x 3, Maalox, and Tylenol at the facility with no improvements. Patient's blood sugars were found to be elevated in the ER. Patient was recently admitted here and worked up for possible ACS, and A1c was 8.7. Cardiovascular: CAD, CHF, HTN, hyperipidemia Pulmonary: Other (Sleep apnea) [employer]IAN: Other (narcolepsy, TIA) Endocrine: Diabetes Past Surgical History: Appendectomy, Cholecystectomy, , Hernia Repair, Tubal Ligation Smoke: No ALCOHOL: none Drugs: None Lives: [facility] Domestic Violence: Neg Review of Systems Constitutional: Yes: Other (headache); No: Fever, Chills, Sweats, Weakness, Malaise Eyes: No: Pain, Vision change, Conjunctivae inflammation, Eyelid inflammation, Other, Redness ENT: No: Ear pain, Ear discharge, Nose pain, Nose discharge, Nose congestion, Mouth pain, Mouth swelling, Throat pain, Throat swelling, Other Respiratory: No: Cough, Dry, Shortness of breath, SOB with excertion, Wheezing, Hemoptysis, Pleuritic Pain, Sputum, Wheezing, Other Cardiovascular: Chest Pain (epigastric); No: Palpitations, Orthopnea, Paroxysmal Noc. Dyspnea, Edema, Lt Headedness, Other Gastrointestinal: Nausea; No: Vomiting, Abdominal Pain, Diarrhea, Constipation, Melena, Hematochezia, Other Genitourinary: No Dysuria, No Frequency, No Incontinence, No Hematuria, No Retention, No Other Musculoskeletal: No: other, neck pain, shoulder pain, arm pain, back pain, hand pain, leg pain, foot pain Skin: No: Rash, Lesions, Jaundice, Bruising, Other Neurological: No: Weakness, Numbness, Incoordination, Change in speech, Confu haydee, Seizures, Other Allergies: Coded Allergies: Sulfa Antibiotics (Unverified Allergy, Unknown, 09/05/24) Medications Current Medications Medications Dose Ordered Sig/Feng Route Start Time Stop Time Status Last Admin Dose Admin Sodium Chloride 10 ml Q8HR IV 01/27/25 22:00 UNV Acetaminophen/ Hydrocodone Bitart 1 tab Q4HP PRN PO 01/27/25 14:15 UNV Ondansetron HCl 4 mg Q4HP PRN IV 01/27/25 14:15 UNV Acetaminophen 650 mg Q6HP PRN PO 01/27/25 14:15 UNV Nitroglycerin 0.4 mg Q5MINP PRN SL 01/27/25 14:15 UNV Morphine Sulfate 2 mg Q30M PRN IV 01/27/25 14:15 UNV Clonazepam 0.5 mg BID PO 01/27/25 22:00 UNV Lorazepam 1 mg BID PRN PO 01/27/25 14:15 UNV Mesalamine 400 mg BID PO 01/27/25 22:00 UNV Metoprolol Tartrate 25 mg BID PO 01/27/25 22:00 UNV Patient Own Medication 81 mg DAILY PO 01/28/25 10:00 UNV Patient Own Medication 45 unit BID SC 01/27/25 22:00 UNV Patient Own Medication 1 tab DAILY PO 01/28/25 10:00 UNV Patient Own Medication 20 mg DAILY PO 01/28/25 10:00 UNV Patient Own Medication 2 tab DAILY PO 01/28/25 10:00 UNV Exam Vital Signs Vital Signs Date Time Temp Pulse Resp B/P (MAP) Pulse Ox O2 Delivery O2 Flow Rate FiO2 01/27/25 11:50 98.0 65 12 103/47 (65) 93 98.0 General Appearance: Alert, Oriented X3, Cooperative, No acute distress HEENT: Atraumatic, PERRLA, Mucous membr. moist/pink Respiratory: Clear to auscultation, Normal air movement Cardiovascular: Regular rate, Normal S1, Normal S2 Abdominal: Normal bowel sounds, Soft, No tenderness, No hepatospenomegaly Extremities: No clubbing, No cyanosis, No edema, Normal pulses Skin: No rashes, No breakdown, No significant lesion Neuro: Normal gait, Normal speech, Strength at 5/5 X4 ext Psych/Mental Status: Mental status NL, Mood NL Labs/Xrays Labs Test 01/27/25 06:15 01/27/25 04:54 Range/Units Troponin I High Sensitivity < 3 L </=34 ng/L White Blood Count 5.9 4.4-10.8 10^3/uL Red Blood Count 4.67 4.0-5.20 10^6/uL Hemoglobin 12.9 12.2-16.2 g/dL Hematocrit 38.5 36.0-46.0 % Mean Corpuscular Volume 82.4 80.0-100.0 fL Mean Corpuscular Hemoglobin 27.6 L 28.0-32.0 pg Mean Corpuscular Hemoglobin Concent 33.6 32.0-36.0 g/dL Red Cell Distribution Width 16.3 H 11.8-14.3 % Platelet Count 232 140-450 10^3/uL Mean Platelet Volume 8.6 6.9-10.8 fL Neutrophils (%) (Auto) 69.9 37.0-80.0 % Lymphocytes (%) (Auto) 20.0 10.0-50.0 % Monocytes (%) (Auto) 7.5 0.0-12.0 % Eosinophils (%) (Auto) 1.8 0.0-7.0 % Basophils (%) (Auto) 0.8 0.0-2.0 % Neutrophils # (Auto) 4.1 1.6-8.6 10 ^3/uL Lymphocytes # (Auto) 1.2 0.4-5.4 10 ^3/uL Monocytes # (Auto) 0.4 0-1.3 10 ^3/uL Eosinophils # (Auto) 0.1 0-0.8 10 ^3/uL Basophils # (Auto) 0 0-0.2 10 ^3/uL Nucleated Red Blood Cells 0.2 % Sodium Level 137 136-145 mmol/L Potassium Level 3.7 3.5-5.1 mmol/L Chloride Level 105 98-107 mmol/L Carbon Dioxide Level 24 20-31 mmol/L Anion Gap 8 5-15 Blood Urea Nitrogen < 5 L 9-23 mg/dL Creatinine 0.76 0.550-1.02 mg/dL Glomerular Filtration Rate Calc 87 >90 mL/min BUN/Creatinine Ratio 6.6 L 10.0-20.0 Serum Glucose 274 H 74-106 mg/dL Calcium Level 8.8 8.7-10.4 mg/dL B-Type Natriuretic Peptide 20.09 0-100 pg/mL SEPSIS Sepsis Screen Date sepsis recognized/suspect: Jan 27, 2025 Time Sepsis recognized/suspect: 429 Recent Procedure: No On Antibiotic Therapy: No Respiratory Rate >20: No Heart Rate >90: No Temp<36 C (96.8 F) or >38.3 C: No SBP <90 or MAP <65 mmHG: No New Acute Mental Status Change: No Is the patient on CPAP, BIPAP,: No Physician Orders Admit (01/27/25 14:04) Code Status (01/27/25 14:04) Sodium Chloride Lock (Saline Lock Ns) (01/27/25 22:00) Hydrocodone-Acet 5/325mg Tab ([place] 5/32 (01/27/25 14:15) Ondansetron Hcl (Zofran) (01/27/25 14:15) Fall Risk Precautions In Place QSHIFT (01/27/25 14:04) Complete Blood Count (01/28/25 04:00) Comprehensive Metabolic Panel (01/28/25 04:00) Cardiac Diet-2gna,Lofat,Lochol (01/27/25 Dinner) Pt Request For Service (01/27/25 14:04) Condition: Serious (01/27/25 14:04) Acetaminophen Tablet (Tylenol Tablet) (01/27/25 14:15) Nitroglycerin Sublingual (Ntrostat Subli (01/27/25 14:15) Morphine Sulfate Injection (01/27/25 14:15) Stat Ekg For Chest Pain (01/27/25 14:04) Notify Md Of Changes From Base (01/27/25 14:04) Pediatric Dental Assistant For 24 Hours (01/27/25 14:04) Emergency Dysrhythmia Protocol (01/27/25 14:04) Rhythm Strips Once Every Shift (01/27/25 14:04) Oxygen By Nasal Cannula (01/27/25 14:04) Clonazepam Tablet (Klonopin Tablet) (01/27/25 22:00) Lorazepam Tablet (Ativan Tablet) (01/27/25 14:15) Mesalamine Dr Capsule (Delzicol Delayed (01/27/25 22:00) Metoprolol Tartrate Tablet (Lopressor Ta (01/27/25 22:00) (Nf) Aspirin (Aspirin Low Dose) (01/28/25 10:00) (Nf) Insulin Glargine (Lantus Solostar) (01/27/25 22:00) (Nf) Lisinopril (01/28/25 10:00) (Nf) Omeprazole (Gnp Omeprazole) (01/28/25 10:00) (Nf) Pitolisant Hydrochloride (Wakix) (01/28/25 10:00) (Nf) Atorvastatin Calcium (01/27/25 22:00) Vital Signs Date Time Temp Pulse Resp B/P (MAP) Pulse Ox O2 Delivery O2 Flow Rate FiO2 01/27/25 11:50 98.0 65 12 103/47 (65) 93 98.0 01/27/25 10:22 69 Laboratory Tests Test 01/27/25 04:54 White Blood Count 5.9 10^3/uL (4.4-10.8) Assessment/Plan Assessment/Plan Assessment: Uncontrolled diabetes mellitus, Morbid obesity, Hypertension, Hyperlipidemia, Coronary artery disease, Plan: Admit to Tele, Social service consult, Accu checks Q AC&HS with sliding scale, Lifestyle modification counseling, Home medications reconciled, Plan discussed with: Patient My Orders Orders - SCOTT MORSE Procedure Category Date Status Time Admit ADMIT 01/27/25 Transmitted 14:04 Code Status CODE 01/27/25 Transmitted 14:04 Sodium Chloride Lock PHA 01/27/25 Logged (Saline Lock Ns) 22:00 Hydrocodone-Acet PHA 01/27/25 Logged 5/325mg Tab ([place] 14:15 Ondansetron Hcl PHA 01/27/25 Logged (Zofran) 14:15 Fall Risk Precautions RAE 01/27/[address] 14:04 Complete Blood Count LAB 01/28/25 Verified 04:00 Comprehensive LAB 01/28/25 Verified Metabolic Panel 04:00 Cardiac DIET 01/27/25 Transmitted Diet-2gna,Lofat,Lochol Dinner Pt Request For Service PT 01/27/25 Logged 14:04 Condition: Serious RAE 01/27/25 In Process 14:04 Acetaminophen Tablet PHA 01/27/25 Logged (Tylenol Tablet) 14:15 Nitroglycerin PHA 01/27/25 Logged Sublingual (Ntrostat 14:15 Morphine Sulfate PHA 01/27/25 Logged Injection 14:15 Stat Ekg For Chest [facility] 01/27/25 In Process Pain 14:04 Notify Of Changes [facility] 01/27/25 In Process From Base 14:04 Pediatric Dental Assistant For [facility] 01/27/25 In Process 24 Hours 14:04 Emergency Dysrhythmia [facility] 01/27/25 In Process Protocol 14:04 Rhythm Strips Once [facility] 01/27/25 In Process Every Shift 14:04 Oxygen By Nasal RT 01/27/25 Transmitted Cannula 14:04 Clonazepam Tablet [facility] 01/27/25 Logged (Klonopin Tablet) 22:00 Lorazepam Tablet [facility] 01/27/25 Logged (Ativan Tablet) 14:[address] Capsule [facility] 01/27/25 Logged (Delzicol Delayed 22:00 Metoprolol Tartrate [facility] 01/27/25 Logged Tablet (Lopressor Ta 22:00 (Nf) Aspirin (Aspirin [facility] 01/28/25 Logged Low Dose) 10:00 (Nf) Insulin Glargine PHA 01/27/25 Logged (Lantus Solostar) 22:00 (Nf) Lisinopril PHA 01/28/25 Logged 10:00 (Nf) Omeprazole (Gnp PHA 01/28/25 Logged Omeprazole) 10:00 (Nf) Pitolisant PHA 01/28/25 Logged Hydrochloride (Wakix) 10:00 (Nf) Atorvastatin PHA 01/27/25 Transmitted Calcium 22:00 Date of Service: Jan 27, 2025 Billing Provider: SCOTT MORSE Common Visit Codes: [id number] INP/OBS CARE (MOD) SCOTT MORSE Jan 27, 2025 14:35
--- NOTE | 2025-01-27 17:38 | DVH ---
CHEST RADIOGRAPH Indication: cp Technique: Single frontal view of the chest was obtained Comparison: XY CHEST XRAY 1 VIEW on DOS: 01/03/25, XY CHEST PORTABLE on DOS: 12/03/24, XY CHEST PORTABL E on DOS: 11/27/24 FINDINGS: Lines and Tubes: None Lungs: No focal consolidation. Pleura: No effusion. No pneumothorax. Cardiomediastinal contours: Unremarkable Bones: No acute osseous abnormality. IMPRESSION: 1. No acute cardiopulmonary disease.
[2025-01-27 19:52] VITALS: RESP 16; O2SAT 92
[2025-01-27] MEDS: HYDROcodone-ACET 5/325MG TAB PO PRN (19:59)
[2025-01-27] MEDS: ONDANSETRON HCL 4 MG/2 ML VIAL IV PRN (20:00)
[2025-01-27] MEDS: INSULIN LANTUS (GLARGINE) 1 /0.01ml (100units/ml) SC SCH (22:41)
[2025-01-27] MEDS: MESALAMINE 400mg Delayed Release Cap PO SCH (22:44)
[2025-01-27] MEDS: ATORVASTATIN 20 MG TAB PO SCH (22:46)
[2025-01-27] MEDS: METOPROLOL TARTRATE 25 MG TAB PO SCH (22:46)
[2025-01-27] MEDS: SODIUM CHLOR 0.9% PF (SALINE LOCK) 10ML VIAL/SYR IV SCH (22:47)
[2025-01-27] MEDS: clonazePAM 0.5 MG TAB PO SCH (22:47)
[2025-01-28 06:59] LABS: Hematocrit 41.0 % (36.0-46.0); Hemoglobin 13.4 g/dL (12.2-16.2); Mean Corpuscular Hemoglobin 27.3 pg (28.0-32.0); Mean Corpuscular Volume 83.2 fL (80.0-100.0); Nucleated Red Blood Cells % 0.2 %
[2025-01-28 07:15] LABS: Alanine Aminotransferase 17 U/L (7-40); Albumin 4.3 g/dL (3.2-4.8); Alkaline Phosphatase 77 U/L (46-116); Anion Gap 8 (5-15); BUN/Creatinine Ratio 10.6 (10.0-20.0); Bilirubin, Total 0.4 mg/dL (0.2-1.0); Blood Urea Nitrogen 9 mg/dL (9-23); Calcium 9.0 mg/dL (8.7-10.4); Carbon Dioxide 25 mmol/L (20-31); Chloride 103 mmol/L (98-107); Glucose 328 mg/dL (74-106); Potassium 4.1 mmol/L (3.5-5.1); Sodium 136 mmol/L (136-145); Total Protein 6.5 g/dL (5.7-8.2)
[2025-01-28] MEDS: LISINOPRIL 5 MG TAB PO SCH (10:00)
[2025-01-28] MEDS: ASPirin-EC 81 mg tab PO SCH (11:14)
[2025-01-28] MEDS: [UNRECOGNIZED DRUG - OTHER] PO SCH (11:17)
[2025-01-28] MEDS: PATIENTS OWN MEDICATION (Omeprazole (Gnp Omeprazole) 20 MG) PO SCH (11:18)
[2025-01-28 13:00] VITALS: BP 132/79; PULSE 69; RESP 18; TEMP 97.9; O2SAT 96
[2025-01-28 14:17] VITALS: PULSE 56; RESP 18; O2SAT 97
[2025-01-28 17:00] VITALS: BP 123/74; PULSE 69; RESP 16; TEMP 98.1; O2SAT 95
[2025-01-28] MEDS: MORPHINE SULFATE INJ 2 MG/ml SYRG IV PRN (17:00)
[2025-01-28] MEDS ORDERED: ASPirin-EC 81 mg tab PO ONE (18:00)
--- NOTE | 2025-01-28 18:02 | DVHPNRES ---
Progress Note Date Seen: Jan 28, 2025 Resident Creating Document: EN MIRANDA RESIDENT Medical Necessity Reason Pt with a Central, PICC or Fol: No Subjective Review of Systems Patient is a 64-year-old female with prior medical history of narcolepsy, anxiety, PATI, 2 diabetes, hypertension, hyperlipidemia, gastritis, depression, and ulcerative colitis, who presented to the ED with chief complaint of chest pain. Patient states she has had intermittent chest pain for the last year and a half, and refers progressive onset of pressure-like pain in left chest, non- radiating, with intensity of 7/10, and associated with nausea. She denies palpitations, diaphoresis, shortness of breaths, vomiting, and fever. She is currently staying at [facility] after a recent hospitalization at [facility], states that she had a similar episode 4 days prior to presentation and was given Mylanta, Zofran, and nitroglycerin with relief. However, on this occasion the pain persisted despite aforementioned regimen, and for this reason she sought medical care. Evaluation in the ED, in mild distress and hypertensive. Initial labs show CBC and chemical panel within normal range, except for serum glucose of 274. Troponins are negative and BNP is 20. 12 lead EKG shows sinus rhythm. Chest x-ray shows no acute cardiopulmonary disease. Patient was admitted for further workup and monitoring. Surgical: Neck fusion 2021, left shoulder repair, ORIF of right ankle, ventral wall hernia repair Social: Patient denies tobacco, drug, and alcohol use. since she is currently living at [facility] after recent hospitalization, but lives by herself in her own apartment and there upon discharge from SNF. Patient seen at bedside. She is AOx4, States she feels better, pain has resolved. She has been able to eat, sleep, and ambulate with her walker. she has no adverse events overnight. Vitals have been stable. Follow-up labs are within normal range. Cardiac consult has been placed, cardiology has requested further evaluation with D-dimer, repeat troponins, EKGs, and echocardiogram for evaluation of cardiac function. She will continue current management and we will continue to monitor. Review of Systems: Constitutional: Denies weight loss, fever and chills. HEENT: Denies changes in vision and hearing. Respiratory: Denies shortness of breath and cough Cardiovascular: Denies chest discomfort or palpitations GI: Denies abdominal distention, abdominal pain, diarrhea : Denies dysuria and urinary frequency. Musculoskeletal: denies symptoms Skin: Denies rash and pruritus. Neurological: denies dizziness headache vision or hearing problems Objective vital signs Vital Sign Date Time Temp Pulse Resp B/P (MAP) Pulse Ox O2 Delivery O2 Flow Rate FiO2 01/28/25 17:00 70 20 132/78 01/28/25 14:17 97 Room Air* 0 21 01/28/25 13:00 97.9 97.9 medications Current Medications Medications Dose Ordered Sig/Feng Route Start Time Stop Time Status Last Admin Dose Admin Sodium Chloride 10 ml Q8HR IV 01/27/25 22:00 01/27/25 22:47 10 ML Acetaminophen/ Hydrocodone Bitart 1 tab Q4HP PRN PO 01/27/25 14:15 01/28/25 11:13 1 TAB Ondansetron HCl 4 mg Q4HP PRN IV 01/27/25 14:15 01/28/25 17:31 4 MG Acetaminophen 650 mg Q6HP PRN PO 01/27/25 14:15 Nitroglycerin 0.4 mg Q5MINP PRN SL 01/27/25 14:15 Morphine Sulfate 2 mg Q30M PRN IV 01/27/25 14:15 01/28/25 17:00 2 MG Clonazepam 0.5 mg BID PO 01/27/25 22:00 01/28/25 11:13 0.5 MG Lorazepam 1 mg BID PRN PO 01/27/25 14:15 Mesalamine 400 mg BID PO 01/27/25 22:00 01/28/25 11:14 400 MG Metoprolol Tartrate 25 mg BID PO 01/27/25 22:00 01/27/25 22:46 25 MG Aspirin 81 mg DAILY PO 01/28/25 10:00 01/28/25 11:14 81 MG Insulin Glargine 45 units BID SC 01/27/25 22:00 01/28/25 11:57 45 UNITS Lisinopril 10 mg DAILY PO 01/28/25 10:00 Patient Own Medication 20 mg DAILY PO 01/28/25 10:00 Patient Own Medication 2 tab DAILY PO 01/28/25 10:00 Atorvastatin Calcium 40 mg HS PO 01/27/25 22:00 01/27/25 22:46 40 MG Examination General: The patient alert and oriented in person place and time. Patient following commands HEENT: Normocephalic, atraumatic, EOM intact, pink moist mucous membrane Respiratory/pulmonary: Bilateral chest expansion, Clear lungs bilaterally, no pain on palpation of chest wall, vesicular murmurs present in almost all lung bloom, no associated crackles or wheezes. Cardiovascular: Normal RRR, normal S1 and S2 Abdomen: Obese, Abdomen nondistended, normal bowel sounds, soft, there is no pain to palpation in any of the abdominal quadrants, no palpable masses. Extremities: No deformities, there is no peripheral edema present at the lower extremities, normal pulses Skin: No rashes or pruritus Neurological: Intact cranial nerves with no focal neurologic deficits laboratory and microbiology Laboratory Tests 01/28/25 06:40 Test 01/28/25 06:40 Range/Units Serum Glucose 328 H 74-106 mg/dL Problem List/Assessment/Plan Problem List/Assessment/Plan Assessment and plan: Acute chest pain, rule out ACS - aspirin 81 mg p.o. daily - morphine 2 mg Q 30 IV p.r.n. - nitroglycerin 0.4 mg SL q.6 p.r.n. - acetaminophen 650 mg p.o. Q6h p.r.n. - [place] 5 mg p.o. q.4 hours p.r.n. - pending cardiology consult - pending echocardiogram Hypertension - lisinopril 10 mg daily p.o. - metoprolol tartrate 25 mg p.o. b.i.d. Hyperlipidemia - atorvastatin 40 mg p.o. daily Type 2 diabetes mellitus with hyperglycemia - Lantus 45 units b.i.d. subcutaneous - carbohydrate consistent diet - Accu-Cheks -HbA1c pending History of gastritis - Protonix 20 mg p.o. daily History of anxiety - lorazepam 1 mg p.o. b.i.d. p.r.n. - clonazepam 0.5 p.o. b.i.d. History of ulcerative colitis - mesalamine 400 mg p.o. b.i.d. Morbid obesity, BMI 38.8 kg/m2 History of depression DVT prophylaxis: Lovenox 40 mg SC Case discussed with Dr. Aguillon Goals of care discussed with the patient for over 30 minutes. States she understands and agrees. Plan discussed with: Patient My Orders My Orders Orders - EN MIRANDA RESIDENT Procedure Category Date Status Time * Cardiology Consult CONS 01/28/25 Transmitted 12:53 D-Dimer LAB 01/28/25 Logged 17:44 Troponin-I Hs LAB 01/28/25 Logged 17:44 Troponin-I Hs LAB 01/28/25 Logged 18:44 Electrocardigram EKG 01/28/25 Logged 17:44 Date of Service: Jan 28, 2025 Billing Provider: ELIOT AGUILLON MD Common Visit Codes: [id number] INP/OBS CARE(HIGH) Secondary Visit Codes: [id number] CARE PLAN 30 MINUTES EN MIRANDA RESIDENT Jan 28, 2025 18:02 ELIOT AGUILLON MD Jan 31, 2025 22:03
[2025-01-28 18:46] LABS: Alanine Aminotransferase 17 U/L (7-40); Albumin 4.4 g/dL (3.2-4.8); Alkaline Phosphatase 75 U/L (46-116); Anion Gap 8 (5-15); BUN/Creatinine Ratio 11.9 (10.0-20.0); Bilirubin, Total 0.4 mg/dL (0.2-1.0); Blood Urea Nitrogen 10 mg/dL (9-23); Calcium 9.2 mg/dL (8.7-10.4); Carbon Dioxide 26 mmol/L (20-31); Chloride 102 mmol/L (98-107); Magnesium 1.7 mg/dL (1.6-2.6); Potassium 4.1 mmol/L (3.5-5.1); Sodium 136 mmol/L (136-145); Total Protein 6.6 g/dL (5.7-8.2)
[2025-01-28 18:47] LABS: Glucose 226 mg/dL (74-106)
--- NOTE | 2025-01-28 19:50 | DVH ---
Bilateral lower extremity venous duplex Clinical History: D-Dimer 0.9 Comparison: US BILAT LOWER DVT on DOS: 12/04/24 Technique: Duplex Doppler evaluation of the deep venous systems of both lower extremities from the common femora l veins to the popliteal veins including color Doppler and spectral/pulsed waveform analysis was perf ormed. Findings: RIGHT SIDE: The common femoral vein demonstrates appropriate compressibility and waveform variability. There is compressibility/patency of the great saphenous vein at the proximal thigh. The femoral vein demonstrates appropriate compressibility and waveform variability. The deep femoral vein demonstrates appropriate compressibility and waveform variability. The popliteal vein demonstrates appropriate compressibility and waveform variability. There is normal compressibility at the tibioperoneal trunk. LEFT SIDE: The common femoral vein demonstrates appropriate compressibility and waveform variability. There is compressibility/patency of the great saphenous vein at the proximal thigh. The femoral vein demonstrates appropriate compressibility and waveform variability. The deep femoral vein demonstrates appropriate compressibility and waveform variability. The popliteal vein demonstrates appropriate compressibility and waveform variability. There is normal compressibility at the tibioperoneal trunk. Impression: 1. No right or left femoropopliteal venous thrombosis.
[2025-01-28 20:00] VITALS: PULSE 74; PULSE 76; RESP 19
[2025-01-28 21:00] VITALS: BP 131/79; PULSE 76; RESP 18; TEMP 97.6; O2SAT 93
[2025-01-28] MEDS ORDERED: MORPHINE SULFATE INJ 2 MG/ml SYRG IM ONE (21:45)
[2025-01-28] MEDS: LORazepam 0.5 MG TAB PO PRN (22:12)
[2025-01-28] MEDS: MORPHINE SULFATE INJ 2 MG/ml SYRG IV ONE (22:45)
[2025-01-29] VITALS (8 sets, daily range): BP systolic 99–143; BP diastolic 46–82; PULSE 55–77; RESP 16–20; TEMP 97.6–98.7; O2SAT 93–98
[2025-01-29 06:39] LABS: Hematocrit 38.2 % (36.0-46.0); Hemoglobin 12.7 g/dL (12.2-16.2); Mean Corpuscular Hemoglobin 27.2 pg (28.0-32.0); Mean Corpuscular Volume 81.8 fL (80.0-100.0); Nucleated Red Blood Cells % 0.1 %
[2025-01-29 06:49] LABS: Chloride 104 mmol/L (98-107); Potassium 3.9 mmol/L (3.5-5.1); Sodium 137 mmol/L (136-145)
[2025-01-29 06:50] LABS: Anion Gap 10 (5-15); Calcium 9.0 mg/dL (8.7-10.4); Carbon Dioxide 23 mmol/L (20-31)
[2025-01-29 06:55] LABS: BUN/Creatinine Ratio 12.0 (10.0-20.0); Blood Urea Nitrogen 9 mg/dL (9-23)
[2025-01-29 06:57] LABS: Glucose 197 mg/dL (74-106)
[2025-01-29] MEDS: ENOXAPARIN SOD 40 MG/0.4 ML SYRINGE SC SCH (10:04)
--- NOTE | 2025-01-29 10:33 | DVH ---
CTA Chest with intravenous contrast INDICATION: D-DIMER 0.9 PE COMPARISON: CT CT ANGIO CHEST CONTRAST on DOS: 09/05/24 TECHNIQUE: Multidetector spiral CTA of the chest was performed of the chest with intravenous contrast . PULMONARY ANGIOGRAPHY PROTOCOL was utilized using a bolus-tracking technique centered on the main p ulmonary artery. Axial, coronal and sagittal multiplanar and MIP reformats were performed. CONTRAST: Type of contrast: Omni 350 Contrast injected: 70 ml Radiation dose : Chest: CTDI volume is 29.2 mGy. Dose-length product is 1011.5 mGy*cm The dose indicators for CT are the volume computed Tomography (CT) dose Index (CTDIvol) and the dose Length product (DLP), and are measured in units of mGy and mGy-cm, respectively. These indicators are not patient dose, but values generated from the CT scanner acquisition factors. The report includes radiation exposure data for exposures received during this examination. Findings: Pulmonary artery: No pulmonary embolism Lower neck: Normal thyroid. Lungs: Patchy ground-glass opacities in both lungs. Atelectasis and scarring in the lung bases. Heart/Vascular Structures: Normal heart size. No pericardial effusion. Lymph Nodes: No adenopathy Pleura: No pleural effusion or significant pneumothorax. Musculoskeletal: Chronic compression deformity of T10 and L1. Multilevel degenerative disease. Neur al stimulator in place. Soft tissues: Normal. Upper abdomen: Limited portions of the upper abdomen are unremarkable. IMPRESSION: 1. No pulmonary embolism. 2. Patchy ground-glass opacities in both lungs could represent subsegmental atelectasis. Clinical co rrelation and continued follow-up is recommended. HS:Y
[2025-01-29] MEDS: IOHEXOL 350 MG/ML 100ML IJ ONE (14:08)
--- NOTE | 2025-01-29 17:31 | DVHPNRES ---
Progress Note Date Seen: Jan 29, 2025 Resident Creating Document: EN MIRANDA RESIDENT Medical Necessity Reason Pt with a Central, PICC or Fol: No Subjective Review of Systems Patient is a 64-year-old female with prior medical history of narcolepsy, anxiety, PATI, 2 diabetes, hypertension, hyperlipidemia, gastritis, depression, and ulcerative colitis, who presented to the ED with chief complaint of chest pain. Patient states she has had intermittent chest pain for the last year and a half, and refers progressive onset of pressure-like pain in left chest, non- radiating, with intensity of 7/10, and associated with nausea. She denies palpitations, diaphoresis, shortness of breaths, vomiting, and fever. She is currently staying at [facility] after a recent hospitalization at [facility], states that she had a similar episode 4 days prior to presentation and was given Mylanta, Zofran, and nitroglycerin with relief. However, on this occasion the pain persisted despite aforementioned regimen, and for this reason she sought medical care. Evaluation in the ED, in mild distress and hypertensive. Initial labs show CBC and chemical panel within normal range, except for serum glucose of 274. Troponins are negative and BNP is 20. 12 lead EKG shows sinus rhythm. Chest x-ray shows no acute cardiopulmonary disease. Patient was admitted for further workup and monitoring. Patient seen at bedside. She is AOx4, she states she feels better, reports 2 episodes of chest pain overnight that improved with Highland and morphine. She currently denies any palpitations, fever, nausea, vomiting, and shortness of breath. Vitals are stable. Follow up labs are within normal range. Per Cardiology, D-dimer was recommended and was 0.9. Lower extremity in his duplex ultrasound was ordered which showed no right or left femoral popliteal venous thrombosis. CT angio showed no pulmonary embolism. She is currently pending the results of her echocardiogram. Currently pending evaluation by Cardiology. We will continue to monitor. Objective vital signs Vital Sign Date Time Temp Pulse Resp B/P (MAP) Pulse Ox O2 Delivery O2 Flow Rate FiO2 01/29/25 17:00 98.2 68 20 116/72 (87) 95 98.2 01/29/25 08:00 Room Air* 0 21 Total Intake and Output 01/28/25 01/28/25 01/29/25 15:00 23:00 07:00 Intake Total 50 ml 800 ml Balance 50 ml 800 ml medications Current Medications Medications Dose Ordered Sig/Feng Route Start Time Stop Time Status Last Admin Dose Admin Sodium Chloride 10 ml Q8HR IV 01/27/25 22:00 01/29/25 14:07 10 ML Acetaminophen/ Hydrocodone Bitart 1 tab Q4HP PRN PO 01/27/25 14:15 01/29/25 15:09 1 TAB Ondansetron HCl 4 mg Q4HP PRN IV 01/27/25 14:15 01/28/25 17:31 4 MG Acetaminophen 650 mg Q6HP PRN PO 01/27/25 14:15 Nitroglycerin 0.4 mg Q5MINP PRN SL 01/27/25 14:15 Clonazepam 0.5 mg BID PO 01/27/25 22:00 01/29/25 10:22 0.5 MG Lorazepam 1 mg BID PRN PO 01/27/25 14:15 01/28/25 22:12 1 MG Mesalamine 400 mg BID PO 01/27/25 22:00 01/29/25 10:02 400 MG Metoprolol Tartrate 25 mg BID PO 01/27/25 22:00 01/29/25 10:04 25 MG Aspirin 81 mg DAILY PO 01/28/25 10:00 01/29/25 10:02 81 MG Insulin Glargine 45 units BID SC 01/27/25 22:00 01/29/25 10:14 45 UNITS Lisinopril 10 mg DAILY PO 01/28/25 10:00 01/29/25 10:02 10 MG Patient Own Medication 20 mg DAILY PO 01/28/25 10:00 Patient Own Medication 2 tab DAILY PO 01/28/25 10:00 Atorvastatin Calcium 40 mg HS PO 01/27/25 22:00 01/28/25 22:07 40 MG Enoxaparin Sodium 40 mg DAILY SC 01/29/25 10:00 01/29/25 10:04 40 MG Examination General: The patient alert and oriented in person place and time. Patient following commands HEENT: Normocephalic, atraumatic, EOM intact, pink moist mucous membrane Respiratory/pulmonary: Bilateral chest expansion, Clear lungs bilaterally, no pain on palpation of chest wall, vesicular murmurs present in almost all lung bloom, no associated crackles or wheezes. Cardiovascular: Normal RRR, normal S1 and S2 Abdomen: Obese, Abdomen nondistended, normal bowel sounds, soft, there is no pain to palpation in any of the abdominal quadrants, no palpable masses. Extremities: No deformities, there is no peripheral edema present at the lower extremities, normal pulses Skin: No rashes or pruritus Neurological: Intact cranial nerves with no focal neurologic deficits laboratory and microbiology Laboratory Tests 01/29/25 04:25 Test 01/29/25 04:25 Range/Units Serum Glucose 197 H 74-106 mg/dL Problem List/Assessment/Plan Problem List/Assessment/Plan Assessment and plan: Acute chest pain, rule out ACS - Aspirin 81 mg p.o. daily - Morphine 2 mg Q 30 IV p.r.n. - Nitroglycerin 0.4 mg SL q.6 p.r.n. - Acetaminophen 650 mg p.o. Q6h p.r.n. - Highland 5 mg p.o. q.4 hours p.r.n. - Pending cardiology consult - Pending echocardiogram results Hypertension - Lisinopril 10 mg daily p.o. - Metoprolol tartrate 25 mg p.o. b.i.d. Hyperlipidemia - Atorvastatin 40 mg p.o. daily Type 2 diabetes mellitus with hyperglycemia - Lantus 45 units b.i.d. subcutaneous - Carbohydrate consistent diet - Accu-Cheks -HbA1c pending DVT ruled out - Bilateral lower extremity venous duplex: No right or left femoral popliteal venous thrombosis. PE ruled out -CT angio: No pulmonary embolism. History of gastritis - Protonix 20 mg p.o. History of anxiety - lorazepam 1 mg p.o. b.i.d. p.r.n. - clonazepam 0.5 p.o. b.i.d. History of ulcerative colitis - mesalamine 400 mg p.o. b.i.d. Morbid obesity, BMI 38.8 kg/m2 History of depression DVT prophylaxis: Lovenox 40 mg SC Case discussed with Dr. Aguillon Goals of care discussed with the patient for over 30 minutes. States she understands and agrees. FULL CODE. Plan discussed with: Patient My Orders My Orders Orders - EN MIRANDA RESIDENT Procedure Category Date Status Time Electrocardigram EKG 01/28/25 Logged 17:44 Enoxaparin Sodium PHA 01/29/25 In Process (Lovenox) 10:00 * Resident Care Supervisor CONS 01/29/25 Transmitted Consult Date of Service: Jan 29, 2025 Billing Provider: ELIOT AGUILLON MD Common Visit Codes: [id number] INP/OBS CARE(HIGH) [place] RESIDENT Jan 29, 2025 17:31 ELIOT AGUILLON MD Jan 31, 2025 22:03
--- NOTE | 2025-01-29 18:05 | DVHINCON2 ---
Date of service: Jan 29, 2025 Reason for Consultation Chest Pain History of Present Illness This is a 64-year old female known to our practice who initially presented 12/28/2024 from [facility] with reported chest discomfort that started while laying down at night prompting further medical evaluation. Patient herself reports the pain is not associated/provoked with movement or physical exertion. Upon ED arrival 12-lead electrocardiogram had revealed sinus rhythm at 67bpm, with no evidence for acute ischemic changes. Serial HS troponin trend has been found negative x 5. D-Dimer had been found mildly elevated at 0.94 which subsequent CTA of the chest had revealed no evidence for pulmonary embolism however did reveal patchy ground glass opacities involving bilateral lungs questioning possible subsegmental atelectasis. Bilateral lower extremity venous duplex had ruled out deep vein thrombosis. BNP level was found normal at 20.09, and then to 23.96. Urinalysis was found to have trace leukocyte esterase which WBC count has been within normal ranges. Of note, patient underwent recent ischemic workup by cardiac catheterization (left and right heart cath) 03/09/2024 which had revealed no significant coronary disease. Recent Echocardiogram (01/08/2025) performed at [facility] had revealed a preserved LVEF of 65%, stage I di astolic dysfunction, with reported probable moderate however it is of note during recent cardiac catheterization 03/09/2024 aortic valve was crossed revealing no gradient across the valve itself. Throughout course of present admission, patient has remained hemodynamically stable with no evidence for tachy/nasir arrhythmias. At present patient denies any further chest pain. Denies any shortness of breath, palpitations, dizziness, syncope, orthopnea, paroxysmal nocturnal dyspnea, or any further cardiac related symptoms. As the patient presented with chest pain, cardiology services were subsequently involved by primary team request for its evaluation. Past medical history includes multiple previous cerebrovascular accidents status post TPA therapy 09/05/2024, status post TNK therapy [facility] , chronic diastolic heart failure, valvular heart disease (aortic stenosis), hypertension, hyperlipidemia, diabetes mellitus, obstructive sleep apnea, ulcerative colitis, lower back pain status post neural stimulator implantation, status post previous section x 2 Cardiac Catheterization: ([facility] 03/09/2024) non-revealing of any significant coronary disease Echocardiogram ([facility] 09/05/2024) revealed ejection fraction of 65%, aortic valve area of 1.1 cm2 and peak/mean pressure gradient across aortic valve of 44/25 mm Hg. Echocardiogram: ([facility] 09/06/2024) Left Ventricle: Left ventricle is non-dilated. Left ventricle is non-hypertrophied. Normal segmental contractile LV wall motion. Left ventricular systolic function is hyperdynamic with an estimated ejection fraction of 65 - 70%. Diastolic left ventricular dysfunction with impaired relaxation Doppler pattern (grade I). Right Ventricle: The right ventricle is mildly dilated. Non-hypertrophied right ventricle. Normal right ventricular systolic function. Aortic Valve: Tricuspid aortic valve is moderately calcified. Mild aortic regurgitation.V1 =1.1 V2= 3.7 MG 30mmhg LISA ~ 1 cm2, consistent with moderate . Right Atrium: The right atrium is normal size. No right to left shunt across foramen ovale, using 10ml of agitated saline contrast (TTE). Hemodynamics: Mildly increased right atrial pressure. Elevated left atrial pressure. PASP cannot be determined due to incomplete TR velocity. Right atrial pressure is 8.0 mmHg. Long-Term Event Monitor: (11/19/2024) negative for atrial fibrillation/atrial flutter Echocardiogram: ([facility] 01/08/2025) revealed TDS, EF 65%, stage I diastolic dysfunction, mild LVH. MV moderate MAC, no MS. Moderate AV sclerosis, mild to moderate AR, probably moderate AV stenosis. Mean/peak AV gradiant 31/54 mmHg. LISA 1.2 cm2. Mild to moderate TR, RVSP 35 mmHg Past Surgical History Reviewed Family History: Colon cancer G8 MOTHER Diabetes mellitus G8 MOTHER FH: heart attack Allergies: Coded Allergies: Sulfa Antibiotics (Unverified Allergy, Unknown, 09/05/24) Home Meds Active Scripts Metoprolol Tartrate (Metoprolol Tartrate) 25 Mg Tab, 1 TAB PO BID, #60 TAB 5 Refills Prov:MOE CHEEMA NP 01/03/25 Clonazepam (KlonoPIN TABLET) 0.5 Mg Tb, 1 TAB PO BID for 15 Days, #30 TAB 1 Refill Prov:MOUNIKA TILLMAN MD 12/07/24 Reported Medications Atorvastatin Calcium (ATORVASTATIN CALCIUM) 40 Mg Tab, 1 TAB PO HS 01/27/25 Omeprazole (Gnp Omeprazole) 20 Mg Tab, 20 MG PO DAILY, TAB 12/04/24 Ondansetron Odt 4MG Tab (ZOFRAN PO) 4 Mg Tb, 4 MG PO PRN for NAUSEA OR VOMITING, TAB ODT TAB-DISSOLVE IN MOUTH, THEN SWALLOW 12/04/24 Insulin Glargine (Lantus Solostar) 100 Unit/Ml Inj, 45 UNIT SC BID 12/04/24 Aspirin (Aspirin Low Dose) 81 Mg Chw, 81 MG PO DAILY, TAB.CHEW 12/04/24 Pitolisant Hydrochloride (Wakix) 17.8 Mg Tab, 2 TAB PO DAILY 12/04/24 Lorazepam (Ativan) 0.5 Mg Tab, 2 TAB PO BID PRN for ANXIETY, #30 TAB 09/05/24 Semaglutide (Ozempic) 4 Mg/3 Ml Inj, 2 MG SC QWEEKLY, INJ 09/05/24 Lisinopril (Lisinopril) 10 Mg Tab, 1 TAB PO DAILY 09/05/24 Mesalamine (Mesalamine Dr) 400 Mg Cap, 2 CAP PO BID 09/05/24 Discontinued Scripts Hydrocodone-Acetaminophen (Hydrocodone Bitartrate/AC 5-325 mg) 1 Tab Tab, 1 TAB PO TID PRN for 5 Days, #15 TAB Prov:MOUNIKA TILLMAN MD 12/07/24 Alum & Mag Hydrox-Simethicone (Maalox Plus) 30 Ml Ss, 30 ML PO Q8HR for 30 Days, #1200 ML 2 Refills Prov:MOUNIKA TILLMAN MD 12/07/24 Pantoprazole Sodium Sesquihydr (Protonix) 40 Mg Tab, 40 MG PO BID for 30 Days, #60 TAB Prov:MOUNIKA TILLMAN MD 12/07/24 Current Medications Current Medications Medications (Trade) Dose Ordered Sig/Feng Route PRN Reason Start Time Stop Time Status Last Admin Enoxaparin Sodium (Lovenox) 40 mg DAILY SC 01/29/25 10:00 01/29/25 10:04 Review of Systems A 14-point review of systems is negative unless otherwise noted above Vital Signs Vital Signs Date Time Temp Pulse Resp B/P (MAP) Pulse Ox O2 Delivery O2 Flow Rate FiO2 01/29/25 17:00 98.2 68 20 116/72 (87) 95 98.2 01/29/25 08:00 Room Air* 0 21 Physical Exam Heart: S1 and S2 regular. The patient is in sinus rhythm. Lungs: Clear to auscultation Abdomen: Benign. Extremities: Distal pulses palpable, 2+. No evidence for peripheral edema Labs/Diagnostic Data Labs Test 01/29/25 10:07 01/29/25 04:25 01/28/25 20:41 01/28/25 18:16 Range/Units POC Glucose 163 H 70-106 mg/dl White Blood Count 6.5 4.4-10.8 10^3/uL Red Blood Count 4.66 4.0-5.20 10^6/uL Hemoglobin 12.7 12.2-16.2 g/dL Hematocrit 38.2 36.0-46.0 % Mean Corpuscular Volume 81.8 80.0-100.0 fL Mean Corpuscular Hemoglobin 27.2 L 28.0-32.0 pg Mean Corpuscular Hemoglobin Concent 33.2 32.0-36.0 g/dL Red Cell Distribution Width 16.1 H 11.8-14.3 % Platelet Count 272 140-450 10^3/uL Mean Platelet Volume 9.1 6.9-10.8 fL Neutrophils (%) (Auto) 60.3 37.0-80.0 % Lymphocytes (%) (Auto) 27.6 10.0-50.0 % Monocytes (%) (Auto) 7.5 0.0-12.0 % Eosinophils (%) (Auto) 3.8 0.0-7.0 % Basophils (%) (Auto) 0.8 0.0-2.0 % Neutrophils # (Auto) 3.9 1.6-8.6 10 ^3/uL Lymphocytes # (Auto) 1.8 0.4-5.4 10 ^3/uL Monocytes # (Auto) 0.5 0-1.3 10 ^3/uL Eosinophils # (Auto) 0.2 0-0.8 10 ^3/uL Basophils # (Auto) 0.1 0-0.2 10 ^3/uL Nucleated Red Blood Cells 0.1 % Sodium Level 137 136-145 mmol/L Potassium Level 3.9 3.5-5.1 mmol/L Chloride Level 104 98-107 mmol/L Carbon Dioxide Level 23 20-31 mmol/L Anion Gap 10 5-15 Blood Urea Nitrogen 9 9-23 mg/dL Creatinine 0.75 0.550-1.02 mg/dL Glomerular Filtration Rate Calc 88 >90 mL/min BUN/Creatinine Ratio 12.0 10.0-20.0 Serum Glucose 197 H 74-106 mg/dL Calcium Level 9.0 8.7-10.4 mg/dL Troponin I High Sensitivity < 3 L </=34 ng/L D-Dimer, Quantitative 0.94 H 0.0-0.49 mg/L FEU Magnesium Level 1.7 1.6-2.6 mg/dL Total Bilirubin 0.4 0.2-1.0 mg/dL Aspartate Amino Transferase (AST) 16 13-40 U/L Alanine Aminotransferase (ALT) 17 7-40 U/L Alkaline Phosphatase 75 46-116 U/L B-Type Natriuretic Peptide 23.96 0-100 pg/mL Total Protein 6.6 5.7-8.2 g/dL Albumin 4.4 3.2-4.8 g/dL Test 01/27/25 05:35 Range/Units Urine Color Light-yellow Yellow Urine Clarity Turbid H Clear Urine pH 5.5 5.0-9.0 Urine Specific Keller 1.011 1.001-1.035 Urine Protein Negative Negative Urine Ketones Negative Negative Urine Blood Negative Negative /uL Urine Nitrite Negative Negative Urine Bilirubin Negative Negative Urine Urobilinogen Normal Negative mg/dL Urine Leukocyte Esterase Trace Negative /uL Urine RBC 1 0 - 4 /hpf Urine Microscopic WBC 11 H 0-5 /HPF Urine Squamous Epithelial Cells Mod <5 /hpf Urine Bacteria None seen None Seen /hpf Urine Glucose 1+ H Normal mg/dL Plan/Recommendation ASSESSMENT: This is a 64-year old female known to our practice who initially presented 12/28/2024 from [facility] with reported chest discomfort that started while laying down at night prompting further medical evaluation. Patient herself reports the pain is not associated/provoked with movement or physical exertion. Upon ED arrival 12-lead electrocardiogram had revealed sinus rhythm at 67bpm, with no evidence for acute ischemic changes. Serial HS troponin trend has been found negative x 5. D-Dimer had been found mildly elevated at 0.94 which subsequent CTA of the chest had revealed no evidence for pulmonary embolism however did reveal patchy ground glass opacities involving bilateral lungs questioning possible subsegmental atelectasis. Bilateral lower extremity venous duplex had ruled out deep vein thrombosis. BNP level was found normal at 20.09, and then to 23.96. Urinalysis was found to have trace leukocyte esterase which WBC count has been within normal ranges. Of note, patient underwent recent ischemic workup by cardiac catheterization (left and right heart cath) 03/09/2024 which had revealed no significant coronary disease. Recent Echocardiogram (01/08/2025) performed at [facility] had revealed a preserved LVEF of 65%, stage I diastolic dysfunction, with reported probable moderate however it is of note during recent cardiac catheterization 03/09/2024 aortic valve was crossed revealing no gradient across the valve itself. Throughout course of present admission, patient has remained hemodynamically stable with no evidence for tachy/nasir arrhythmias. At present patient denies any further chest pain. Denies any shortness of breath, palpitations, dizziness, syncope, orthopnea, paroxysmal nocturnal dyspnea, or any further cardiac related symptoms. As the patient presented with chest pain, cardiology services were subsequently involved by primary team request for its evaluation. Past medical history includes multiple previous cerebrovascular accidents status post TPA therapy 09/05/2024, status post TNK therapy [facility] , chronic diastolic heart failure, hypertension, hyperlipidemia, diabetes mellitus, obstructive sleep apnea, ulcerative colitis, lower back pain status post neural stimulator implantation, status post previous section x 2 Cardiac Catheterization: ([facility] 03/09/2024) non-revealing of any significant coronary disease. Echocardiogram ([facility] 09/05/2024) revealed ejection fraction of 65%, aortic valve area of 1.1 cm2 and peak/mean pressure gradient across aortic valve of 44/25 mm Hg. Echocardiogram: ([facility] 09/06/2024) Left Ventricle: Left ventricle is non-dilated. Left ventricle is non-hypertrophied. Normal segmental contractile LV wall motion. Left ventricular systolic function is hyperdynamic with an estimated ejection fraction of 65 - 70%. Diastolic left ventricular dysfunction with impaired relaxation Doppler pattern (grade I). Right Ventricle: The right ventricle is mildly dilated. Non-hypertrophied right ventricle. Normal right ventricular systolic function. Aortic Valve: Tricuspid aortic valve is moderately calcified. Mild aortic regurgitation.V1 =1.1 V2= 3.7 MG 30mmhg LISA ~ 1 cm2, consistent with moderate . Right Atrium: The right atrium is normal size. No right to left shunt across foramen ovale, using 10ml of agitated saline contrast (TTE). Hemodynamics: Mildly increased right atrial pressure. Elevated left atrial pressure. PASP cannot be determined due to incomplete TR velocity. Right atrial pressure is 8.0 mmHg. Long-Term Event Monitor: (11/19/2024) negative for atrial fibrillation/atrial flutter Echocardiogram: ([facility] 01/08/2025) revealed TDS, EF 65%, stage I diastolic dysfu nction, mild LVH. MV moderate MAC, no MS. Moderate AV sclerosis, mild to moderate AR, probably moderate AV stenosis. Mean/peak AV gradiant 31/54 mmHg. LISA 1.2 cm2. Mild to moderate TR, RVSP 35 mmHg Chest pain (atypical), ACS not considered Chronic diastolic heart failure, compensated History of repeated cerebral vascular accidents Questionable concern for underlying UTI Hypertension, controlled Obstructive sleep apnea Diabetes mellitus Morbid obesity Hyperlipidemia CARDIAC SUGGESTIONS FOR MANAGEMENT: 2-D Echocardiogram requested by primary team, await findings Recognizing clinical presentation, ACS at this point is not considered As ACS is not considered, no indication warranted for repeat ischemic workup To proceed with optimized medical therapy and risk factor modification during the interim Patient appears euvolemic, ok to withhold diuretic therapy at present Proceed with close observation for overt signs of fluid overload Proceed with strict intakes, outputs, and daily weights Metoprolol Tartrate 25mg twice daily Atorvastatin 40mg once daily On Aspirin 81mg once daily Lisinopril 10mg once daily Proceed with close rate and rhythm surveillance Proceed with close hemodynamic surveillance Proceed with optimized blood pressure control Transfuse to sustain HGB level above 7.0 Sustain Magnesium level greater than 2.0 Sustain Potassium level greater than 4.0 Follow up renal function and electrolytes Management of concurrent medical conditions as per primary team Management of comorbidities as per primary team Management of possible UTI per primary team Management in telemetry Will proceed to follow from a cardiac perspective Further recommendations per clinical progression All available diagnostic labs, EKG's, and images were personally reviewed Patient's status, findings, and plan of care was reviewed and discussed with supervising physician Dr. Koo, who is in agreement with current plan of care. Plan of care discussed with and agreed upon by patient / primary RN Prognosis: Guarded Thank you for allowing me to participate in the care of this patient. Further recommendations based on patients clinical course and progression, primary attending, and other consultants. Will continue to follow with primary attending . If you have any questions or concerns, please do not hesitate to contact me. A total of 75 minutes was spent reviewing the patient record, examining the patient, making a diagnostic and therapeutic plan, discussing this plan with medical personnel, following up on diagnostic studies and following the patient for clinical stability excluding any and all procedures. At least 50% of this time was spent in direct, [id number] contact. Plan discussed with: Patient (Patient and primary rn ) KAYLIN BERMUDEZP Jan 29, 2025 18:05
--- NOTE | 2025-01-29 22:12 | DVHSR ---
APPROVED REPORT EXAM: Two-dimensional and M-mode echocardiogram with Doppler and color Doppler. Blood Pressure: 113/73 mmHg INDICATION Chest Pain RISK FACTORS Height: 66, Weight: 240 DIMENSIONS LVDd3.7 (3.8-5.7cm)LA (2D)5.0 (1.9-4.0cm)Aortic Root3.5 (2.0-3.7cm) LVDs2.7 (2.5-4.0cm)LA (MM) (1.9-4.0cm)Aortic Cusp Exc0.9 (1.5-2.0cm) EF (%) 54.0 (55-70%)Rt. Atrium4.4 (1.9-4.0cm)Asc. Aorta3.0 cm IVSd1.7 (0.7-1.1cm)RV (D) (1.8-2.4cm) PWd1.4 (0.7-1.1cm) Mitral Valve MitralMitral Stenosis E wave0.99m/sMV Mean GR.mmHg A wave1.17m/sMV Peak GR.mmHg E/A ratio0.82D MVAcm2 DECEL [id number] 1/2 [id number] IVRTmsDop MVA2.54cm2 Aortic Valve Aortic ValveAortic Stenosis V11.19m/Sherron Mean GR.32mmHg V23.67m/Sherron Peak GR.54mmHg LVOT Diameter2.4 (1.8-2.4cm)Doppler AVA1.47cm2 AI P 1/2 Dqmg563.79ms Tricuspid Valve TR Velocity2.32m/s [id number] Conclusion Left ventricle: Concentric left ventricular hypertrophy was seen. LVEF was around 55%. There was n o gross wall motion abnormality. Pseudonormal left ventricular diastolic dysfunction was observed. Right ventricle was mildly dilated with normal systolic function. Left atrium was moderately dilated . Right atrium was mildly dilated. Aortic valve: Aortic valve had calcified cusps with reduced opening. Bicuspid aortic valve can not be ruled out. There was mild aortic insufficiency. There was moderate aortic stenosis. Peak/mean p ressure gradient across the aortic valve was 58/34 mm Hg. Calculated aortic valve area (continuity e quation) was 1.5 centimeter sq. Mitral valve revealed mitral annular calcification. There was trace mitral regurgitation. There was no mitral stenosis. There was trace tricuspid regurgitation. Pulmonary valve did not reveal any i nsufficiency. Right ventricular systolic pressure was assessed at 39 mm Hg. There was no pericardial effusion. Ao rtic root size was normal at 3.5 cm.
[2025-01-29] MEDS: MORPHINE SULFATE INJ 2 MG/ml SYRG IV ONE (22:26)
[2025-01-30] VITALS (7 sets, daily range): BP systolic 108–134; BP diastolic 54–81; PULSE 53–74; RESP 16–18; TEMP 97.5–98.3; O2SAT 94–98
--- NOTE | 2025-01-30 06:38 | DVHPN2 ---
Progress Note - Dictate Date Seen: Jan 30, 2025 Medical Necessity Reason Pt with a Central, PICC or Fol: No vital signs Vital Sign Date Time Temp Pulse Resp B/P (MAP) Pulse Ox O2 Delivery O2 Flow Rate FiO2 01/30/25 05:00 97.5 53 17 110/54 (72) 94 97.5 01/29/25 20:00 Room Air* 0 21 Total Intake and Output 01/29/25 01/29/25 01/30/25 15:00 23:00 07:00 Intake Total 475 ml 600 ml Balance 475 ml 600 ml medications Current Medications Medications Dose Ordered Sig/Feng Route Start Time Stop Time Status Last Admin Dose Admin Sodium Chloride 10 ml Q8HR IV 01/27/25 22:00 01/30/25 05:03 10 ML Acetaminophen/ Hydrocodone Bitart 1 tab Q4HP PRN PO 01/27/25 14:15 01/29/25 15:09 1 TAB Ondansetron HCl 4 mg Q4HP PRN IV 01/27/25 14:15 01/28/25 17:31 4 MG Acetaminophen 650 mg Q6HP PRN PO 01/27/25 14:15 Nitroglycerin 0.4 mg Q5MINP PRN SL 01/27/25 14:15 Clonazepam 0.5 mg BID PO 01/27/25 22:00 01/29/25 22:24 0.5 MG Lorazepam 1 mg BID PRN PO 01/27/25 14:15 01/28/25 22:12 1 MG Mesalamine 400 mg BID PO 01/27/25 22:00 01/29/25 22:24 400 MG Metoprolol Tartrate 25 mg BID PO 01/27/25 22:00 01/29/25 22:24 25 MG Aspirin 81 mg DAILY PO 01/28/25 10:00 01/29/25 10:02 81 MG Insulin Glargine 45 units BID SC 01/27/25 22:00 01/29/25 22:00 45 UNITS Lisinopril 10 mg DAILY PO 01/28/25 10:00 01/29/25 10:02 10 MG Patient Own Medication 20 mg DAILY PO 01/28/25 10:00 Patient Own Medication 2 tab DAILY PO 01/28/25 10:00 Atorvastatin Calcium 40 mg HS PO 01/27/25 22:00 01/29/25 22:24 40 MG Enoxaparin Sodium 40 mg DAILY SC 01/29/25 10:00 01/29/25 10:04 40 MG laboratory and microbiology Laboratory Tests 01/29/25 04:25 Test 01/29/25 04:25 Range/Units Serum Glucose 197 H 74-106 mg/dL Assessment/Plan ASSESSMENT: This is a 64-year old female known to our practice who initially presented 12/28/2024 from [facility] with reported chest discomfort that started while laying down at night prompting further medical evaluation. Patient herself reports the pain is not associated/provoked with movement or physical exertion. Upon ED arrival 12-lead electrocardiogram had revealed sinus rhythm at 67bpm, with no evidence for acute ischemic changes. Serial HS troponin trend has been found negative x 5. D-Dimer had been found mildly elevated at 0.94 which subsequent CTA of the chest had revealed no evidence for pulmonary embolism however did reveal patchy ground glass opacities involving bilateral lungs questioning possible subsegmental atelectasis. Bilateral lower extremity venous duplex had ruled out deep vein thrombosis. BNP level was found normal at 20.09, and then to 23.96. Urinalysis was found to have trace leukocyte esterase which WBC count has been within normal ranges. Of note, patient underwent recent ischemic workup by cardiac catheterization (left and right heart cath) 03/09/2024 which had revealed no significant coronary disease. Recent Echocardiogram (01/08/2025) performed at [facility] had revealed a preserved LVEF of 65%, stage I diastolic dysfunction, with reported probable moderate however it is of note during recent cardiac catheterization 03/09/2024 aortic valve was crossed revealing no gradient across the valve itself. Throughout course of present admission, patient has remained hemodynamically stable with no evidence for tachy/nasir arrhythmias. At present patient denies any further chest pain. Denies any shortness of breath, palpitations, dizziness, syncope, orthopnea, paroxysmal nocturnal dyspnea, or any further cardiac related symptoms. As the patient presented with chest pain, cardiology services were subsequently involved by primary team request for its evaluation. Past medical history includes multiple previous cerebrovascular accidents status post TPA therapy 09/05/2024, status post TNK therapy [facility] , chronic diastolic heart failure, hypertension, hyperlipidemia, diabetes mellitus, obstructive sleep apnea, ulcerative colitis, lower back pain status post neural stimulator implantation, status post previous section x 2 Cardiac Catheterization: ([facility] 03/09/2024) non-revealing of any significant coronary disease. Echocardiogram ([facility] 09/05/2024) revealed ejection fraction of 65%, aortic valve area of 1.1 cm2 and peak/mean pressure gradient across aortic valve of 44/25 mm Hg. Echocardiogram: ([facility] 09/06/2024) Left Ventricle: Left ventricle is non-dilated. Left ventricle is non-hypertrophied. Normal segmental contractile LV wall motion. Left ventricular systolic function is hyperdynamic with an estimated ejection fraction of 65 - 70%. Diastolic left ventricular dysfunction with impaired relaxation Doppler pattern (grade I). Right Ventricle: The right ventricle is mildly dilated. Non-hypertrophied right ventricle. Normal right ventricular systolic function. Aortic Valve: Tricuspid aortic valve is moderately calcified. Mild aortic regurgitation.V1 =1.1 V2= 3.7 MG 30mmhg LISA ~ 1 cm2, consistent with moderate . Right Atrium: The right atrium is normal size. No right to left shunt across foramen ovale, using 10ml of agitated saline contrast (TTE). Hemodynamics: Mildly increased right atrial pressure. Elevated left atrial pressure. PASP cannot be determined due to incomplete TR velocity. Right atrial pressure is 8.0 mmHg. Long-Term Event Monitor: (11/19/2024) negative for atrial fibrillation/atrial flutter Echocardiogram: ([facility] 01/08/2025) revealed TDS, EF 65%, stage I diastolic dysfunction, mild LVH. MV moderate MAC, no MS. Moderate AV sclerosis, mild to moderate AR, probably moderate AV stenosis. Mean/peak AV gradiant 31/54 mmHg. LISA 1.2 cm2. Mild to moderate TR, RVSP 35 mmHg Echocardiogram: Left ventricle: Concentric left ventricular hypertrophy was seen. LVEF was around 55%. There was no gross wall motion abnormality. Pseudonormal left ventricular diastolic dysfunction was observed. Right ventricle was mildly dilated with normal systolic function. Left atrium was moderately dilated. Right atrium was mildly dilated. Aortic valve: Aortic valve had calcified cusps with reduced opening. Bicuspid aortic valve can not be ruled out. There was mild aortic insufficiency. There was moderate aortic stenosis. Peak/mean pressure gradient across the aortic valve was 58/34 mm Hg. Calculated aortic valve area (continuity equation) was 1.5 centimeter sq. Mitral valve revealed mitral annular calcification. There was trace mitral regurgitation. There was no mitral stenosis. There was trace tricuspid regurgitation. Pulmonary valve did not reveal any insufficiency. Right ventricular systolic pressure was assessed at 39 mm Hg. There was no pericardial effusion. Aortic root size was normal at 3.5 cm. Chest pain (atypical), ACS not considered Chronic diastolic heart failure, compensated History of repeated cerebral vascular accidents Questionable concern for underlying UTI Hypertension, controlled Obstructive sleep apnea Diabetes mellitus Morbid obesity Hyperlipidemia CARDIAC SUGGESTIONS FOR MANAGEMENT: Cardiac-chapin, stable and can managed outpatient Recognizing clinical presentation, ACS at this point is not considered As ACS is not considered, no indication warranted for repeat ischemic workup To proceed with optimized medical therapy and risk factor modification during the interim Patient appears euvolemic, ok to withhold diuretic therapy at present Proceed with close observation for overt signs of fluid overload Proceed with strict intakes, outputs, and daily weights Metoprolol Tartrate 25mg twice daily Atorvastatin 40mg once daily On Aspirin 81mg once daily Lisinopril 10mg once daily Proceed with close rate and rhythm surveillance Proceed with close hemodynamic surveillance Proceed with optimized blood pressure control Transfuse to sustain HGB level above 7.0 Sustain Magnesium level greater than 2.0 Sustain Potassium level greater than 4.0 Follow up renal function and electrolytes Management of concurrent medical conditions as per primary team Management of comorbidities as per primary team Management of possible UTI per primary team Management in telemetry Will proceed to follow from a cardiac perspective Further recommendations per clinical progression All available diagnostic labs, EKG's, and images were personally reviewed Patient's status, findings, and plan of care was reviewed and discussed with supervising physician Dr. Koo, who is in agreement with current plan of care. Plan of care discussed with and agreed upon by patient / primary RN Prognosis: Guarded Thank you for allowing me to participate in the care of this patient. Further recommendations based on patients clinical course and progression, primary attending, and other consultants. Will continue to follow with primary attending. If you have any questions or concerns, please do not hesitate to contact me. A total of 75 minutes was spent reviewing the patient record, examining the patient, making a diagnostic and therapeutic plan, discussing this plan with medical personnel, following up on diagnostic studies and following the patient for clinical stability excluding any and all procedures. At least 50% of this time was spent in direct, [id number] contact. Plan discussed with: Patient KAYLIN BERMUDEZ [facility] Jan 30, 2025 06:38
[2025-01-30 10:53] LABS: Chloride 104 mmol/L (98-107); Potassium 4.1 mmol/L (3.5-5.1); Sodium 139 mmol/L (136-145)
[2025-01-30 10:54] LABS: Anion Gap 8 (5-15); Carbon Dioxide 27 mmol/L (20-31)
[2025-01-30 10:55] LABS: Calcium 9.0 mg/dL (8.7-10.4)
[2025-01-30 11:00] LABS: BUN/Creatinine Ratio 8.8 (10.0-20.0); Blood Urea Nitrogen 6 mg/dL (9-23); Glucose 206 mg/dL (74-106)
[2025-01-30 11:48] LABS: Hematocrit 42.2 % (36.0-46.0); Hemoglobin 13.6 g/dL (12.2-16.2); Mean Corpuscular Hemoglobin 26.8 pg (28.0-32.0); Mean Corpuscular Volume 82.9 fL (80.0-100.0); Nucleated Red Blood Cells % 0.1 %
--- NOTE | 2025-01-30 16:20 | DVHPNRES ---
Progress Note Date Seen: Jan 30, 2025 Resident Creating Document: EN MIRANDA RESIDENT Medical Necessity Reason Pt with a Central, PICC or Fol: No Subjective Review of Systems Patient is a 64-year-old female with prior medical history of narcolepsy, anxiety, PATI, 2 diabetes, hypertension, hyperlipidemia, gastritis, depression, and ulcerative colitis, who presented to the ED with chief complaint of chest pain. Patient states she has had intermittent chest pain for the last year and a half, and refers progressive onset of pressure-like pain in left chest, non- radiating, with intensity of 7/10, and associated with nausea. She denies palpitations, diaphoresis, shortness of breaths, vomiting, and fever. She is currently staying at [facility] after a recent hospitalization at [facility], states that she had a similar episode 4 days prior to presentation and was given Mylanta, Zofran, and nitroglycerin with relief. However, on this occasion the pain persisted despite aforementioned regimen, and for this reason she sought medical care. Evaluation in the ED, in mild distress and hypertensive. Initial labs show CBC and chemical panel within normal range, except for serum glucose of 274. Troponins are negative and BNP is 20. 12 lead EKG shows sinus rhythm. Chest x-ray shows no acute cardiopulmonary disease. Patient was admitted for further workup and monitoring. Patient seen at bedside. She is Aox4, she states she feels well, denies further episodes of chest pain. Is tolerating oral diet and ambulating around the room with help of her walker. Currently denies palpitations, fever, nausea, vomiting, shortness of breath, and chest pain. Vitals are stable, follow up labs were within normal range. Echocardiogram shows concentric LVH with LVEF around 55% with pseudonormal left ventricular diastolic dysfunction, right ventricle mildly dilated with normal systolic function, with dilation of both atria, right ventricular systolic pressure was assessed at 39 mmHg. She was seen by Cardiology who state that ACS is currently not considered and the patient is stable to be managed outpatient. Patient states she does not wish to return to her previous SNF, consult with outreach and education social worker has been placed to determine if patient can be sent to another SNF. We will continue to monitor. Objective vital signs Vital Sign Date Time Temp Pulse Resp B/P (MAP) Pulse Ox O2 Delivery O2 Flow Rate FiO2 01/30/25 13:00 97.5 58 17 131/81 (98) 97 97.5 01/30/25 07:55 Room Air* 0 21 Total Intake and Output 01/29/25 01/29/25 01/30/25 15:00 23:00 07:00 Intake Total 475 ml 600 ml Balance 475 ml 600 ml medications Current Medications Medications Dose Ordered Sig/Feng Route Start Time Stop Time Status Last Admin Dose Admin Sodium Chloride 10 ml Q8HR IV 01/27/25 22:00 01/30/25 13:18 10 ML Acetaminophen/ Hydrocodone Bitart 1 tab Q4HP PRN PO 01/27/25 14:15 01/30/25 10:16 1 TAB Ondansetron HCl 4 mg Q4HP PRN IV 01/27/25 14:15 01/28/25 17:31 4 MG Acetaminophen 650 mg Q6HP PRN PO 01/27/25 14:15 Nitroglycerin 0.4 mg Q5MINP PRN SL 01/27/25 14:15 Clonazepam 0.5 mg BID PO 01/27/25 22:00 01/30/25 10:15 0.5 MG Lorazepam 1 mg BID PRN PO 01/27/25 14:15 01/28/25 22:12 1 MG Mesalamine 400 mg BID PO 01/27/25 22:00 01/30/25 10:16 400 MG Metoprolol Tartrate 25 mg BID PO 01/27/25 22:00 01/30/25 10:15 25 MG Aspirin 81 mg DAILY PO 01/28/25 10:00 01/30/25 10:16 81 MG Insulin Glargine 45 units BID SC 01/27/25 22:00 01/30/25 10:30 45 UNITS Lisinopril 10 mg DAILY PO 01/28/25 10:00 01/30/25 10:15 10 MG Patient Own Medication 20 mg DAILY PO 01/28/25 10:00 Patient Own Medication 2 tab DAILY PO 01/28/25 10:00 Atorvastatin Calcium 40 mg HS PO 01/27/25 22:00 01/29/25 22:24 40 MG Enoxaparin Sodium 40 mg DAILY SC 01/29/25 10:00 01/30/25 10:15 40 MG Examination General: The patient alert and oriented in person place and time. Patient following commands HEENT: Normocephalic, atraumatic, EOM intact, pink moist mucous membrane Respiratory/pulmonary: Bilateral chest expansion, Clear lungs bilaterally, no pain on palpation of chest wall, vesicular murmurs present in almost all lung bloom, no associated crackles or wheezes. Cardiovascular: Normal RRR, normal S1 and S2 Abdomen: Obese, Abdomen nondistended, normal bowel sounds, soft, there is no pain to palpation in any of the abdominal quadrants, no palpable masses. Extremities: No deformities, there is no peripheral edema present at the lower extremities, normal pulses Skin: No rashes or pruritus Neurological: Intact cranial nerves with no focal neurologic deficits laboratory and microbiology Laboratory Tests 01/30/25 01:01 Test 01/30/25 01:01 Range/Units Serum Glucose 206 H 74-106 mg/dL Problem List/Assessment/Plan Problem List/Assessment/Plan Assessment and plan: Acute chest pain, ruled out ACS - Aspirin 81 mg p.o. daily - Morphine 2 mg Q 30 IV p.r.n. - Nitroglycerin 0.4 mg SL q.6 p.r.n. - Acetaminophen 650 mg p.o. Q6h p.r.n. - [place] 5 mg p.o. q.4 hours p.r.n. - Pending cardiology consult - Pending echocardiogram results Chronic diastolic heart failure, not exacerbated Hypertension - Lisinopril 10 mg daily p.o. - Metoprolol tartrate 25 mg p.o. b.i.d. Hyperlipidemia - Atorvastatin 40 mg p.o. daily Type 2 diabetes mellitus with hyperglycemia - Lantus 45 units b.i.d. subcutaneous - Carbohydrate consistent diet - Accu-Cheks -HbA1c pending DVT ruled out - Bilateral lower extremity venous duplex: No right or left femoral popliteal venous thrombosis. PE ruled out -CT angio: No pulmonary embolism. History of gastritis - Protonix 20 mg p.o. History of anxiety - lorazepam 1 mg p.o. b.i.d. p.r.n. - clonazepam 0.5 p.o. b.i.d. History of ulcerative colitis - mesalamine 400 mg p.o. b.i.d. Morbid obesity, BMI 38.8 kg/m2 History of depression DVT prophylaxis: Lovenox 40 mg SC Patient is currently pending placement at another SNF if possible. Case discussed with Dr. Anh Goals of care discussed with the patient for over 30 minutes. States she understands and agrees. FULL CODE. Plan discussed with: Patient Date of Service: Jan 30, 2025 Billing Provider: CHRISTA JACK MD Common Visit Codes: [id number] INP/OBS CARE(HIGH) EN MIRANDA RESIDENT Jan 30, 2025 16:20 CHRISTA JACK MD Jan 30, 2025 19:57
[2025-01-31] VITALS (7 sets, daily range): BP systolic 102–132; BP diastolic 51–74; PULSE 52–74; RESP 15–18; TEMP 97.9–98.3; O2SAT 93–95
--- NOTE | 2025-01-31 04:48 | DVHPN2 ---
Progress Note - Dictate Date Seen: Jan 31, 2025 Medical Necessity Reason Pt with a Central, PICC or Fol: No vital signs Vital Sign Date Time Temp Pulse Resp B/P (MAP) Pulse Ox O2 Delivery O2 Flow Rate FiO2 01/30/25 22:02 61 01/30/25 21:02 127/71 01/30/25 21:00 98.0 18 95 98.0 01/30/25 20:00 Room Air* 0 21 Total Intake and Output 01/30/25 01/30/25 01/31/25 15:00 23:00 07:00 Intake Total 840 ml Balance 840 ml medications Current Medications Medications Dose Ordered Sig/Feng Route Start Time Stop Time Status Last Admin Dose Admin Sodium Chloride 10 ml Q8HR IV 01/27/25 22:00 01/30/25 21:03 10 ML Acetaminophen/ Hydrocodone Bitart 1 tab Q4HP PRN PO 01/27/25 14:15 01/30/25 21:03 1 TAB Ondansetron HCl 4 mg Q4HP PRN IV 01/27/25 14:15 01/28/25 17:31 4 MG Acetaminophen 650 mg Q6HP PRN PO 01/27/25 14:15 Nitroglycerin 0.4 mg Q5MINP PRN SL 01/27/25 14:15 Clonazepam 0.5 mg BID PO 01/27/25 22:00 01/30/25 21:18 0.5 MG Lorazepam 1 mg BID PRN PO 01/27/25 14:15 01/28/25 22:12 1 MG Mesalamine 400 mg BID PO 01/27/25 22:00 01/30/25 21:02 400 MG Metoprolol Tartrate 25 mg BID PO 01/27/25 22:00 01/30/25 21:02 25 MG Aspirin 81 mg DAILY PO 01/28/25 10:00 01/30/25 10:16 81 MG Insulin Glargine 45 units BID SC 01/27/25 22:00 01/30/25 22:00 45 UNITS Lisinopril 10 mg DAILY PO 01/28/25 10:00 01/30/25 10:15 10 MG Patient Own Medication 20 mg DAILY PO 01/28/25 10:00 Patient Own Medication 2 tab DAILY PO 01/28/25 10:00 Atorvastatin Calcium 40 mg HS PO 01/27/25 22:00 01/30/25 21:02 40 MG Enoxaparin Sodium 40 mg DAILY SC 01/29/25 10:00 01/30/25 10:15 40 MG laboratory and microbiology Laboratory Tests 01/30/25 01:01 Test 01/30/25 01:01 Range/Units Serum Glucose 206 H 74-106 mg/dL Assessment/Plan ASSESSMENT: This is a 64-year old female known to our practice who initially presented 12/28/2024 from [facility] with reported chest discomfort that started while laying down at night prompting further medical evaluation. Patient herself reports the pain is not associated/provoked with movement or physical exertion. Upon ED arrival 12-lead electrocardiogram had revealed sinus rhythm at 67bpm, with no evidence for acute ischemic changes. Serial HS troponin trend has been found negative x 5. D-Dimer had been found mildly elevated at 0.94 which subsequent CTA of the chest had revealed no evidence for pulmonary embolism however did reveal patchy ground glass opacities involving bilateral lungs questioning possible subsegmental atelectasis. Bilateral lower extremity venous duplex had ruled out deep vein thrombosis. BNP level was found normal at 20.09, and then to 23.96. Urinalysis was found to have trace leukocyte esterase which WBC count has been within normal ranges. Of note, patient underwent recent ischemic workup by cardiac catheterization (left and right heart cath) 03/09/2024 which had revealed no significant coronary disease. Recent Echocardiogram (01/08/2025) performed at [facility] had revealed a preserved LVEF of 65%, stage I diastolic dysfunction, with reported probable moderate however it is of note during recent cardiac catheterization 03/09/2024 aortic valve was crossed revealing no gradient across the valve itself. Throughout course of present admission, patient has remained hemodynamically stable with no evidence for tachy/nasir arrhythmias. At present patient denies any further chest pain. Denies any shortness of breath, palpitations, dizziness, syncope, orthopnea, paroxysmal nocturnal dyspnea, or any further cardiac related symptoms. As the patient presented with chest pain, cardiology services were subsequently involved by primary team request for its evaluation. Past medical history includes multiple previous cerebrovascular accidents status post TPA therapy 09/05/2024, status post TNK therapy [facility] , chronic diastolic heart failure, hypertension, hyperlipidemia, diabetes mellitus, obstructive sleep apnea, ulcerative colitis, lower back pain status post neural stimulator implantation, status post previous section x 2 Cardiac Catheterization: ([facility] 03/09/2024) non-revealing of any significant coronary disease. Echocardiogram ([facility] 09/05/2024) revealed ejection fraction of 65%, aortic valve area of 1.1 cm2 and peak/mean pressure gradient across aortic valve of 44/25 mm Hg. Echocardiogram: ([facility] 09/06/2024) Left Ventricle: Left ventricle is non-dilated. Left ventricle is non-hypertrophied. Normal segmental contractile LV wall motion. Left ventricular systolic function is hyperdynamic with an estimated ejection fraction of 65 - 70%. Diastolic left ventricular dysfunction with impaired relaxation Doppler pattern (grade I). Right Ventricle: The right ventricle is mildly dilated. Non-hypertrophied right ventricle. Normal right ventricular systolic function. Aortic Valve: Tricuspid aortic valve is moderately calcified. Mild aortic regurgitation.V1 =1.1 V2= 3.7 MG 30mmhg LISA ~ 1 cm2, consistent with moderate . Right Atrium: The right atrium is normal size. No right to left shunt across foramen ovale, using 10ml of agitated saline contrast (TTE). Hemodynamics: Mildly increased right atrial pressure. Elevated left atrial pressure. PASP cannot be determined due to incomplete TR velocity. Right atrial pressure is 8.0 mmHg. Long-Term Event Monitor: (11/19/2024) negative for atrial fibrillation/atrial flutter Echocardiogram: ([facility] 01/08/2025) revealed TDS, EF 65%, stage I diastolic dysfunction, mild LVH. MV moderate MAC, no MS. Moderate AV sclerosis, mild to moderate AR, probably moderate AV stenosis. Mean/peak AV gradiant 31/54 mmHg. LISA 1.2 cm2. Mild to moderate TR, RVSP 35 mmHg Echocardiogram: Left ventricle: Concentric left ventricular hypertrophy was seen. LVEF was around 55%. There was no gross wall motion abnormality. Pseudonormal left ventricular diastolic dysfunction was observed. Right ventricle was mildly dilated with normal systolic function. Left atrium was moderately dilated. Right atrium was mildly dilated. Aortic valve: Aortic valve had calcified cusps with reduced opening. Bicuspid aortic valve can not be ruled out. There was mild aortic insufficiency. There was moderate aortic stenosis. Peak/mean pressure gradient across the aortic valve was 58/34 mm Hg. Calculated aortic valve area (continuity equation) was 1.5 centimeter sq. Mitral valve revealed mitral annular calcification. There was trace mitral regurgitation. There was no mitral stenosis. There was trace tricuspid regurgitation. Pulmonary valve did not reveal any insufficiency. Right ventricular systolic pressure was assessed at 39 mm Hg. There was no pericardial effusion. Aortic root size was normal at 3.5 cm. Chest pain (atypical), ACS not considered Chronic diastolic heart failure, compensated History of repeated cerebral vascular accidents Questionable concern for underlying UTI Hypertension, controlled Obstructive sleep apnea Diabetes mellitus Morbid obesity Hyperlipidemia CARDIAC SUGGESTIONS FOR MANAGEMENT: Cardiac-chapin, stable and can managed outpatient Recognizing clinical presentation, ACS at this point is not considered As ACS is not considered, no indication warranted for repeat ischemic workup To proceed with optimized medical therapy and risk factor modification during the interim Patient appears euvolemic, ok to withhold diuretic therapy at present Proceed with close observation for overt signs of fluid overload Proceed with strict intakes, outputs, and daily weights Metoprolol Tartrate 25mg twice daily Atorvastatin 40mg once daily On Aspirin 81mg once daily Lisinopril 10mg once daily Proceed with close rate and rhythm surveillance Proceed with close hemodynamic surveillance Proceed with optimized blood pressure control Transfuse to sustain HGB level above 7.0 Sustain Magnesium level greater than 2.0 Sustain Potassium level greater than 4.0 Follow up renal function and electrolytes Management of concurrent medical conditions as per primary team Management of comorbidities as per primary team Management of possible UTI per primary team Management in telemetry Will proceed to follow from a cardiac perspective Further recommendations per clinical progression All available diagnostic labs, EKG's, and images were personally reviewed Patient's status, findings, and plan of care was reviewed and discussed with supervising physician Dr. Koo, who is in agreement with current plan of care. Plan of care discussed with and agreed upon by patient / primary RN Prognosis: Guarded Thank you for allowing me to participate in the care of this patient. Further recommendations based on patients clinical course and progression, primary attending, and other consultants. Will continue to follow with primary attending. If you have any questions or concerns, please do not hesitate to contact me. A total of 75 minutes was spent reviewing the patient record, examining the patient, making a diagnostic and therapeutic plan, discussing this plan with medical personnel, following up on diagnostic studies and following the patient for clinical stability excluding any and all procedures. At least 50% of this time was spent in direct, [id number] contact. Dietary Evaluation Review Recommendations by ROLY: Dietary education by RD Comments: 1) Continue 45g CCHO cardiac diet 2) Encourage optimal PO intake 3) Refer to outpatient RD/CDCES for weight management and diabetes education 4) Follow-up with cardiology 5) Continue to monitor I&O, labs, and skin integrity Expected Outcomes/Goals: 1) appetite and labs to improve 2) f/u in 3-5 days Plan discussed with: Patient KAYLIN BERMUDEZP Jan 31, 2025 04:47
--- NOTE | 2025-01-31 13:39 | DVHDSRES ---
Discharge Summary Date of Admission Resident Creating Document: JESSICA JACK RESIDENT Jan 27, 2025 at 14:04 Date of Discharge: Jan 31, 2025 Admitting Diagnosis uncontrolled diabetes mellitus Labs/Diagnostic Data: Laboratory Results Test 01/31/25 09:13 01/30/25 01:01 01/28/25 20:41 01/28/25 18:16 POC Glucose 166 mg/dl (70-106) White Blood Count 7.2 10^3/uL (4.4-10.8) Red Blood Count 5.09 10^6/uL (4.0-5.20) Hemoglobin 13.6 g/dL (12.2-16.2) Hematocrit 42.2 % (36.0-46.0) Mean Corpuscular Volume 82.9 fL (80.0-100.0) Mean Corpuscular Hemoglobin 26.8 pg (28.0-32.0) Mean Corpuscular Hemoglobin Concent 32.3 g/dL (32.0-36.0) Red Cell Distribution Width 16.1 % (11.8-14.3) Platelet Count 243 10^3/uL (140-450) Mean Platelet Volume 9.4 fL (6.9-10.8) Neutrophils (%) (Auto) 76.1 % (37.0-80.0) Lymphocytes (%) (Auto) 15.6 % (10.0-50.0) Monocytes (%) (Auto) 6.1 % (0.0-12.0) Eosinophils (%) (Auto) 1.6 % (0.0-7.0) Basophils (%) (Auto) 0.6 % (0.0-2.0) Neutrophils # (Auto) 5.5 10 ^3/uL (1.6-8.6) Lymphocytes # (Auto) 1.1 10 ^3/uL (0.4-5.4) Monocytes # (Auto) 0.4 10 ^3/uL (0-1.3) Eosinophils # (Auto) 0.1 10 ^3/uL (0-0.8) Basophils # (Auto) 0 10 ^3/uL (0-0.2) Nucleated Red Blood Cells 0.1 % Sodium Level 139 mmol/L (136-145) Potassium Level 4.1 mmol/L (3.5-5.1) Chloride Level 104 mmol/L (98-107) Carbon Dioxide Level 27 mmol/L (20-31) Anion Gap 8 (5-15) Blood Urea Nitrogen 6 mg/dL (9-23) Creatinine 0.68 mg/dL (0.550-1.02) Glomerular Filtration Rate Calc 97 mL/min (>90) BUN/Creatinine Ratio 8.8 (10.0-20.0) Serum Glucose 206 mg/dL (74-106) Calcium Level 9.0 mg/dL (8.7-10.4) Troponin I High Sensitivity < 3 ng/L (</=34) D-Dimer, Quantitative 0.94 mg/L FEU (0.0-0.49) Magnesium Level 1.7 mg/dL (1.6-2.6) Total Bilirubin 0.4 mg/dL (0.2-1.0) Aspartate Amino Transferase (AST) 16 U/L (13-40) Alanine Aminotransferase (ALT) 17 U/L (7-40) Alkaline Phosphatase 75 U/L (46-116) B-Type Natriuretic Peptide 23.96 pg/mL (0-100) Total Protein 6.6 g/dL (5.7-8.2) Albumin 4.4 g/dL (3.2-4.8) Test 01/27/25 05:35 Urine Color Light-yellow (Yellow) Urine Clarity Turbid (Clear) Urine pH 5.5 (5.0-9.0) Urine Specific [place] 1.011 (1.001-1.035) Urine Protein Negative (Negative) Urine Ketones Negative (Negative) Urine Blood Negative /uL (Negative) Urine Nitrite Negative (Negative) Urine Bilirubin Negative (Negative) Urine Urobilinogen Normal mg/dL (Negative) Urine Leukocyte Esterase Trace /uL (Negative) Urine RBC 1 /hpf (0 - 4) Urine Microscopic WBC 11 /HPF (0-5) Urine Squamous Epithelial Cells Mod /hpf (<5) Urine Bacteria None seen /hpf (None Seen) Urine Glucose 1+ mg/dL (Normal) Other Laboratory Tests 01/30/25 01:01 Brief Hx & Hospital Course: Patient is a 64-year-old female with prior medical history of narcolepsy, anxiety, PATI, 2 diabetes, hypertension, hyperlipidemia, gastritis, depression, and ulcerative colitis, who presented to the ED with chief complaint of chest pain. Patient stated she has had intermittent chest pain for the last year and a half, and referred progressive onset of pressure-like pain in left chest, non- radiating, with intensity of 7/10, and associated with nausea. She is currently staying at [facility] after a recent hospitalization at [facility], states that she had a similar episode 4 days prior to presentation and was given Mylanta, Zofran, and nitroglycerin with relief. However, on this occasion the pain persisted despite aforementioned regimen, and for this reason she sought medical care. On evaluation in the ED, she was in mild distress and hypertensive. Initial labs showed serum glucose of 274. Troponins were negative and BNP was 20. 12 lead EKG shows sinus rhythm. Chest x- ray shows no acute cardiopulmonary disease. Echocardiogram showed concentric LVH with LVEF around 55% with pseudonormal left ventricular diastolic dysfunction, right ventricle mildly dilated with normal systolic function, with dilation of both atria, right ventricular systolic pressure was assessed at 39 mmHg. She was seen by Cardiology who stated that ACS is currently not considered and the patient is stable to be managed outpatient. Patient stated she wants to go home and she does not wish to return to her previous SNF. director of ancillary services was consulted to facilitate discharge to home with home health and physiotherapy. General: The patient alert and oriented in person place and time. Patient following commands HEENT: Normocephalic, atraumatic, EOM intact, pink moist mucous membrane Respiratory/pulmonary: Bilateral chest expansion, Clear lungs bilaterally, no pain on palpation of chest wall, vesicular murmurs present in almost all lung bloom, no associated crackles or wheezes. Cardiovascular: Normal RRR, normal S1 and S2 Abdomen: Obese, Abdomen nondistended, normal bowel sounds, soft, there is no pain to palpation in any of the abdominal quadrants, no palpable masses. Extremities: No deformities, there is no peripheral edema present at the lower extremities, normal pulses Skin: No rashes or pruritus Neurological: Intact cranial nerves with no focal neurologic deficits Case discussed with Dr. Jack. Goals of care discussed with the patient for over 35 minutes. Condition at Discharge: Stable Final Diagnosis/Problems List Acute chest pain, ruled out ACS Chronic diastolic heart failure, not exacerbated Hyperlipidemia Type 2 diabetes mellitus with hyperglycemia DVT ruled out PE ruled out History of gastritis History of anxiety History of ulcerative colitis Morbid obesity, BMI 38.8 kg/m2 History of depression Discharge Disposition: Home with Health Services Discharge Instruct/Medications Diet: Cardiac 2g Na,low cholest Activity: No Restrictions, As Tolerated Activity comment: Patient will benefit from physical therapy, however, patient declined detention facility placement. Home health for physical therapy for 2 weeks. Follow Up/Referral: Please follow-up with PCP in 1-2 weeks Please follow-up with cardiology in the outpatient clinic Medications: Continue home medications Scheduled Aspirin (Aspirin Low Dose), 81 MG PO DAILY, (Reported) Atorvastatin Calcium (Atorvastatin Calcium), 1 TAB PO HS, (Reported) Clonazepam (KlonoPIN TABLET), 1 TAB PO BID Insulin Glargine (Lantus Solostar), 45 UNIT SC BID, (Reported) Lisinopril (Lisinopril), 1 TAB PO DAILY, (Reported) Mesalamine (Mesalamine Dr), 2 CAP PO BID, (Reported) Metoprolol Tartrate (Metoprolol Tartrate), 1 TAB PO BID Omeprazole (Gnp Omeprazole), 20 MG PO DAILY, (Reported) Pitolisant Hydrochloride (Wakix), 2 TAB PO DAILY, (Reported) Semaglutide (Ozempic), 2 MG SC QWEEKLY, (Reported) Scheduled PRN Lorazepam (Ativan), 2 TAB PO BID PRN for ANXIETY, (Reported) Ondansetron Odt 4MG Tab (Zofran Po), 4 MG PO for NAUSEA OR VOMITING, (Reported) Discontinued Medications Alum & Mag Hydrox-Simethicone (Maalox Plus), 30 ML PO Q8HR Hydrocodone-Acetaminophen (Hydrocodone Bitartrate/AC 5-325 mg), 1 TAB PO TID PRN Pantoprazole Sodium Sesquihydr (Protonix), 40 MG PO BID Discharge Statement: "Patient was advised to return to the ER or call 911 if any headaches, dizziness, shortness of breath, chest pain, abdominal pain, bleeding, fevers, or worsening of medical condition. Patient was counseled about treatment plan, medications, possible side effects, patientverbalized understanding. All questions were answered to the best of my ability. This discharge took greater then 30 minutes in planning, reviewing documentation, counseling the patient, and discussing with other team members." ASSESSMENT ASSESSMENT Assessment #Acute chest pain, ruled out ACS #Chronic diastolic heart failure, not exacerbated #Hyperlipidemia #Type 2 diabetes mellitus with hyperglycemia #DVT ruled out #PE ruled out History of gastritis History of anxiety History of ulcerative colitis Morbid obesity, BMI 38.8 kg/m2 History of depression Date of Service: Jan 31, 2025 Billing Provider: CHRISTA JACK MD Common Visit Codes: 15280-DKQ/OBS DISCH DAY >30min JESSICA JACK RESIDENT Jan 31, 2025 13:39 CHRISTA JACK MD Jan 31, 2025 18:17
[2025-02-01] VITALS (7 sets, daily range): BP systolic 109–145; BP diastolic 42–93; PULSE 48–72; RESP 16–20; TEMP 95.4–98.3; O2SAT 94–97
--- NOTE | 2025-02-01 08:24 | DVHPN2 ---
Progress Note - Dictate Date Seen: Feb 01, 2025 Medical Necessity Reason Pt with a Central, PICC or Fol: No vital signs Vital Sign Date Time Temp Pulse Resp B/P (MAP) Pulse Ox O2 Delivery O2 Flow Rate FiO2 02/01/25 05:00 97.6 52 17 111/53 (72) 96 97.6 01/31/25 20:00 Room Air* 0 21 Total Intake and Output 01/31/25 01/31/25 02/01/25 15:00 23:00 07:00 Intake Total 600 ml 240 ml Balance 600 ml 240 ml medications Current Medications Medications Dose Ordered Sig/Feng Route Start Time Stop Time Status Last Admin Dose Admin Sodium Chloride 10 ml Q8HR IV 01/27/25 22:00 02/01/25 05:16 10 ML Acetaminophen/ Hydrocodone Bitart 1 tab Q4HP PRN PO 01/27/25 14:15 02/01/25 05:15 1 TAB Ondansetron HCl 4 mg Q4HP PRN IV 01/27/25 14:15 01/28/25 17:31 4 MG Acetaminophen 650 mg Q6HP PRN PO 01/27/25 14:15 Nitroglycerin 0.4 mg Q5MINP PRN SL 01/27/25 14:15 Clonazepam 0.5 mg BID PO 01/27/25 22:00 01/31/25 21:11 0.5 MG Lorazepam 1 mg BID PRN PO 01/27/25 14:15 01/28/25 22:12 1 MG Mesalamine 400 mg BID PO 01/27/25 22:00 01/31/25 21:11 400 MG Metoprolol Tartrate 25 mg BID PO 01/27/25 22:00 01/31/25 21:11 25 MG Aspirin 81 mg DAILY PO 01/28/25 10:00 01/31/25 09:42 81 MG Insulin Glargine 45 units BID SC 01/27/25 22:00 01/31/25 21:16 45 UNITS Lisinopril 10 mg DAILY PO 01/28/25 10:00 01/30/25 10:15 10 MG Patient Own Medication 20 mg DAILY PO 01/28/25 10:00 Patient Own Medication 2 tab DAILY PO 01/28/25 10:00 Atorvastatin Calcium 40 mg HS PO 01/27/25 22:00 01/31/25 21:11 40 MG Enoxaparin Sodium 40 mg DAILY SC 01/29/25 10:00 01/31/25 09:43 40 MG laboratory and microbiology Laboratory Tests 01/30/25 01:01 Test 01/30/25 01:01 Range/Units Serum Glucose 206 H 74-106 mg/dL Assessment/Plan This is a 64-year old female known to our practice who initially presented 12/28/2024 from [facility] with reported chest discomfort that started while laying down at night prompting further medical evaluation. Patient herself reports the pain is not associated/provoked with movement or physical exertion. Upon ED arrival 12-lead electrocardiogram had revealed sinus rhythm at 67bpm, with no evidence for acute ischemic changes. Serial HS troponin trend has been found negative x 5. D-Dimer had been found mildly elevated at 0.94 which subsequent CTA of the chest had revealed no evidence for pulmonary embolism however did reveal patchy ground glass opacities involving bilateral lungs questioning possible subsegmental atelectasis. Bilateral lower extremity venous duplex had ruled out deep vein thrombosis. BNP level was found normal at 20.09, and then to 23.96. Urinalysis was found to have trace leukocyte esterase which WBC count has been within normal ranges. Of note, patient underwent recent ischemic workup by cardiac catheterization (left and right heart cath) 03/09/2024 which had revealed no significant coronary disease. Recent Echocardiogram (01/08/2025) performed at [facility] had revealed a preserved LVEF of 65%, stage I diastolic dysfunction, with reported probable moderate however it is of note during recent cardiac catheterization 03/09/2024 aortic valve was crossed revealing no gradient across the valve itself. Throughout course of present admission, patient has remained hemodynamically stable with no evidence for tachy/nasir arrhythmias. At present patient denies any further chest pain. Denies any shortness of breath, palpitations, dizziness, syncope, orthopnea, paroxysmal nocturnal dyspnea, or any further cardiac related symptoms. As the patient presented with chest pain, cardiology services were subsequently involved by primary team request for its evaluation. Past medical history includes multiple previous cerebrovascular accidents status post TPA therapy 09/05/2024, status post TNK therapy [facility] , chronic diastolic heart failure, hypertension, hyperlipidemia, diabetes mellitus, obstructive sleep apnea, ulcerative colitis, lower back pain status post neural stimulator implantation, status post previous section x 2 Cardiac Catheterization: ([facility] 03/09/2024) non-revealing of any significant coronary disease. Echocardiogram ([facility] 09/05/2024) revealed ejection fraction of 65%, aortic valve area of 1.1 cm2 and peak/mean pressure gradient across aortic valve of 44/25 mm Hg. Echocardiogram: ([facility] 09/06/2024) Left Ventricle: Left ventricle is non-dilated. Left ventricle is non-hypertrophied. Normal segmental contractile LV wall motion. Left ventricular systolic function is hyperdynamic with an estimated ejection fraction of 65 - 70%. Diastolic left ventricular dysfunction with impaired relaxation Doppler pattern (grade I). Right Ventricle: The right ventricle is mildly dilated. Non-hypertrophied right ventricle. Normal right ventricular systolic function. Aortic Valve: Tricuspid aortic valve is moderately calcified. Mild aortic regurgitation.V1 =1.1 V2= 3.7 MG 30mmhg LISA ~ 1 cm2, consistent with moderate . Right Atrium: The right atrium is normal size. No right to left shunt across foramen ovale, using 10ml of agitated saline contrast (TTE). Hemodynamics: Mildly increased right atrial pressure. Elevated left atrial pressure. PASP cannot be determined due to incomplete TR velocity. Right atrial pressure is 8.0 mmHg. Long-Term Event Monitor: (11/19/2024) negative for atrial fibrillation/atrial flutter Echocardiogram: ([facility] 01/08/2025) revealed TDS, EF 65%, stage I diastolic dysfunction, mild LVH. MV moderate MAC, no MS. Moderate AV sclerosis, mild to moderate AR, probably moderate AV stenosis. Mean/peak AV gradiant 31/54 mmHg. LISA 1.2 cm2. Mild to moderate TR, RVSP 35 mmHg Echocardiogram: Left ventricle: Concentric left ventricular hypertrophy was seen. LVEF was around 55%. There was no gross wall motion abnormality. Pseudonormal left ventricular diastolic dysfunction was observed. Right ventricle was mildly dilated with normal systolic function. Left atrium was moderately dilated. Right atrium was mildly dilated. Aortic valve: Aortic valve had calcified cusps with reduced opening. Bicuspid aortic valve can not be ruled out. There was mild aortic insufficiency. There was moderate aortic stenosis. Peak/mean pressure gradient across the aortic valve was 58/34 mm Hg. Calculated aortic valve area (continuity equation) was 1.5 centimeter sq. Mitral valve revealed mitral annular calcification. There was trace mitral regurgitation. There was no mitral stenosis. There was trace tricuspid regurgitation. Pulmonary valve did not reveal any insufficiency. Right ventricular systolic pressure was assessed at 39 mm Hg. There was no pericardial effusion. Aortic root size was normal at 3.5 cm. Chest pain (atypical), ACS not considered Chronic diastolic heart failure, compensated History of repeated cerebral vascular accidents Questionable concern for underlying UTI Hypertension, controlled Obstructive sleep apnea Diabetes mellitus Morbid obesity Hyperlipidemia CARDIAC SUGGESTIONS FOR MANAGEMENT: Cardiac-chapin, stable and can managed outpatient Recognizing clinical presentation, ACS at this point is not considered As ACS is not considered, no indication warranted for repeat ischemic workup To proceed with optimized medical therapy and risk factor modification during the interim Patient appears euvolemic, ok to withhold diuretic therapy at present Proceed with close observation for overt signs of fluid overload Proceed with strict intakes, outputs, and daily weights Metoprolol Tartrate 25mg twice daily Atorvastatin 40mg once daily On Aspirin 81mg once daily Lisinopril 10mg once daily Proceed with close rate and rhythm surveillance Proceed with close hemodynamic surveillance Proceed with optimized blood pressure control Transfuse to sustain HGB level above 7.0 Sustain Magnesium level greater than 2.0 Sustain Potassium level greater than 4.0 Follow up renal function and electrolytes Management of concurrent medical conditions as per primary team Management of comorbidities as per primary team Management of possible UTI per primary team Management in telemetry Will proceed to follow from a cardiac perspective Further recommendations per clinical progression All available diagnostic labs, EKG's, and images were personally reviewed Plan of care discussed with and agreed upon by patient / primary RN Prognosis: Guarded Thank you for allowing me to participate in the care of this patient. Further recommendations based on patients clinical course and progression, primary attending, and other consultants. Will continue to follow with primary attending. If you have any questions or concerns, please do not hesitate to contact me. A total of 55 minutes was spent reviewing the patient record, examining the patient, making a diagnostic and therapeutic plan, discussing this plan with medical personnel, following up on diagnostic studies and following the patient for clinical stability excluding any and all procedures. At least 50% of this time was spent in direct, [id number] contact. Dietary Evaluation Review Recommendations by RD: Dietary education by RD Comments: 1) [facility] diet 2) Encourage optimal PO intake 3) Refer to outpatient RD/CDCES for weight management and diabetes education 4) Follow-up with cardiology 5) Continue to monitor I&O, labs, and skin integrity Expected Outcomes/Goals: 1) appetite and labs to improve 2) f/u in 3-5 days Plan discussed with: Patient, Other (nurse) CHRIS ZABALA MD Feb 01, 2025 08:24
--- NOTE | 2025-02-01 13:38 | DVHPN2 ---
Reviewed: Care Plan, H&P, Labs, Medications, Previous Orders, Radiology Changes from previous H/P or p: No Changes Eyes: No Pain, No Vision change, No Conjunctivae inflammation, No Eyelid inflammation, No Other, No Redness ENT: No Ear pain, No Ear discharge, No Nose pain, No Nose discharge, No Nose congestion, No Mouth pain, No Mouth swelling, No Throat pain, No Throat swelling, No Other Cardiovascular: Chest Pain (epigastric); No Palpitations, No Orthopnea, No Paroxysmal Noc. Dyspnea, No Edema, No Lt Headedness, No Other Respiratory: No Cough, No Dry, No Shortness of breath, No SOB with excertion, No Wheezing, No Hemoptysis, No Pleuritic Pain, No Sputum, No Other Gastrointestinal: Nausea; No Vomiting, No Abdominal Pain, No Diarrhea, No Constipation, No Melena, No Hematochezia, No Other Genitourinary: No Dysuria, No Frequency, No Incontinence, No Hematuria, No Retention, No Other Musculoskeletal: No other, No neck pain, No shoulder pain, No arm pain, No back pain, No hand pain, No leg pain, No foot pain Skin: No Rash, No Lesions, No Jaundice, No Bruising, No Other Objective Vitals Vital Signs Date Time Temp Pulse Resp B/P (MAP) Pulse Ox O2 Delivery O2 Flow Rate FiO2 02/01/25 11:20 112/52 02/01/25 11:19 68 02/01/25 09:17 98.3 20 96 98.3 02/01/25 08:15 Room Air* 0 21 Intake/Output Intake and Output 02/01/25 07:00 Intake Total 840 ml Balance 840 ml Intake Oral 840 ml # Voids 6 # Bowel Movements 2 Medications Current Medications Medications Dose Ordered Sig/Feng Route Start Time Stop Time Status Last Admin Dose Admin Sodium Chloride 10 ml Q8HR IV 01/27/25 22:00 02/01/25 13:13 10 ML Acetaminophen/ Hydrocodone Bitart 1 tab Q4HP PRN PO 01/27/25 14:15 02/01/25 05:15 1 TAB Ondansetron HCl 4 mg Q4HP PRN IV 01/27/25 14:15 01/28/25 17:31 4 MG Acetaminophen 650 mg Q6HP PRN PO 01/27/25 14:15 Nitroglycerin 0.4 mg Q5MINP PRN SL 01/27/25 14:15 Clonazepam 0.5 mg BID PO 01/27/25 22:00 02/01/25 11:19 0.5 MG Lorazepam 1 mg BID PRN PO 01/27/25 14:15 01/28/25 22:12 1 MG Mesalamine 400 mg BID PO 01/27/25 22:00 02/01/25 11:18 400 MG Metoprolol Tartrate 25 mg BID PO 01/27/25 22:00 02/01/25 11:19 25 MG Aspirin 81 mg DAILY PO 01/28/25 10:00 02/01/25 11:19 81 MG Insulin Glargine 45 units BID SC 01/27/25 22:00 02/01/25 11:28 45 UNITS Lisinopril 10 mg DAILY PO 01/28/25 10:00 02/01/25 11:20 10 MG Patient Own Medication 20 mg DAILY PO 01/28/25 10:00 Patient Own Medication 2 tab DAILY PO 01/28/25 10:00 Atorvastatin Calcium 40 mg HS PO 01/27/25 22:00 01/31/25 21:11 40 MG Enoxaparin Sodium 40 mg DAILY SC 01/29/25 10:00 02/01/25 11:30 40 MG Laboratory Results Laboratory Tests 01/30/25 01:01 Urinalysis Test 01/27/25 05:35 Urine Color Light-yellow (Yellow) Urine Clarity Turbid (Clear) H Urine pH 5.5 (5.0-9.0) Urine Specific [place] 1.011 (1.001-1.035) Urine Protein Negative (Negative) Urine Ketones Negative (Negative) Urine Blood Negative /uL (Negative) Urine Nitrite Negative (Negative) Urine Bilirubin Negative (Negative) Urine Urobilinogen Normal mg/dL (Negative) Urine Leukocyte Esterase Trace /uL (Negative) Urine RBC 1 /hpf (0 - 4) Urine Microscopic WBC 11 /HPF (0-5) H Urine Squamous Epithelial Cells Mod /hpf (<5) Urine Bacteria None seen /hpf (None Seen) Urine Glucose 1+ mg/dL (Normal) H Labs and/or images reviewed: Labs reviewed by me, Image(s) reviewed by me Assessment/Plan Assessment/Plan Acute chest pain, ruled out ACS Chronic diastolic heart failure, not exacerbated Hyperlipidemia Type 2 diabetes mellitus with hyperglycemia DVT ruled out PE ruled out History of gastritis History of anxiety History of ulcerative colitis Morbid obesity, BMI 38.8 kg/m2 History of depression Discharged home on home health 01-31-25 Internal Salesperson arranging home health Examined today No new complaints REDD Trevino at bedside Plan discussed with: Patient Date of Service: Feb 01, 2025 Billing Provider: CECILIA BRITO MD Common Visit Codes: [id number] INP/OBS CARE(HIGH) CECILIA BRITO MD Feb 01, 2025 13:38
== END 2025-02-01 18:41 | disposition home health service (06) | DRG 206 ==
LOC: EDUNIT# 04:28 → EDBD 04:28 → ER 04:28 → EDUNIT# 14:04 → OVERFLOW 14:04 → TELE-WESTW 01-28 15:10
PROVIDERS: ADMIT Family Medicine; ATTEND Family Medicine
DX: M94.0 Chondrocostal junction syndrome [Tietze] (principal); I50.32 Chronic diastolic (congestive) heart failure; Z68.1 Body mass index [BMI] 19.9 or less, adult; I25.10 Atherosclerotic heart disease of native coronary artery without angina pectoris; E78.5 Hyperlipidemia, unspecified; E66.01 Morbid (severe) obesity due to excess calories; E11.65 Type 2 diabetes mellitus with hyperglycemia; F32.A Depression, unspecified; F41.9 Anxiety disorder, unspecified; G89.29 Other chronic pain; M54.50 Low back pain, unspecified; I11.0 Hypertensive heart disease with heart failure; I34.81 Nonrheumatic mitral (valve) annulus calcification; I35.0 Nonrheumatic aortic (valve) stenosis; Z79.82 Long term (current) use of aspirin; Z80.0 Family history of malignant neoplasm of digestive organs; Z82.49 Family history of ischemic heart disease and other diseases of the circulatory system; Z83.3 Family history of diabetes mellitus; Z86.73 Personal history of transient ischemic attack (TIA), and cerebral infarction without residual deficits
CPT/HCPCS: 36415; 71045; 71275; 80048; 80053; 81001; 82962; 83735; 83880; 84484; 85025; 85379; 93005; 93306; 93970; 96372; 96374; 97110; 97116; 97163; G0378; J1815; J2405

== ENCOUNTER 2025-02-26 04:35 | Inpatient (IN) | payer MEDICARE, BC, MEDICAID ==
[~2025-02-26] VITALS: Ht 162.6 cm; Wt 124.3 kg
[2025-02-26] VITALS (7 sets, daily range): BP systolic 105–128; BP diastolic 62–75; PULSE 88–116; RESP 14–22; TEMP 97.7–98.1; O2SAT 18–100
[~2025-02-26 04:35] MED LIST changes: +ATOR40TA52 PO; -HYDR-4902 PO; -MAA30LQ PO; -PANT40TA2 PO
--- NOTE | 2025-02-26 05:01 | ED.PDOC ---
History of present illness HPI Comments 64 Year old female who came to ER via EMS for hyperglycemia. Patient does have history of diabetes, last took her insulin last night. Was noted by family members altered and weak few minutes ago. Paramedics noted blood sugar levels was "high". 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 01/03/25 Clonazepam (KlonoPIN TABLET) 0.5 Mg Tb, 1 TAB PO BID for 15 Days, #30 TAB 1 Refill Prov:MOUNIKA TILLMAN MD 12/07/24 Ciprofloxacin Hcl (Ciprofloxacin Hcl) 500 Mg Tab, 5 TAB PO BID for 5 Days, #10 TAB Prov:JUSTIN ONTIVEROS NP 10/26/24 Ciprofloxacin Hcl (Cipro) 500 Mg Tab, 1 TAB PO BID, #20 TAB Prov:CECILIA BRITO MD 10/07/24 Tramadol HCl (Tramadol HCl) 50 Mg Tab, 50 MG PO TID PRN, #30 TAB Prov:CECILIA BRITO MD 10/07/24 Lorazepam (ATIVAN TABLET) 0.5 Mg Tb, 1 TAB PO TID PRN, #30 TAB Prov:CECILIA BRITO MD 10/07/24 Gabapentin (Gabapentin) 300 Mg Cap, 300 MG PO TID for 30 Days, #90 CAP 3 Refills Prov:SETH TAO DO 08/16/24 Docusate Sodium (Docusate Sodium) 100 Mg Cap, 100 MG PO BIDPRN PRN for 15 Days, #15 CAP Prov:MOUNIKA TILLMAN MD 04/20/24 Fluticasone Propionate (Nasal) (Fluticasone Propionate) 50 Mcg/Act Spr, 50 MCG EACHNOSTRI Q12HR for 30 Days, #2 SPRAY Prov:MOUNIKA TILLMAN MD 04/17/24 Insulin Regular (Human) (Novolin R Flexpen) 100 Unit/Ml Inj, 15 UNIT IJ TID for 28 Days, #100 INJ 15 units before meals, cheack blood sugar 2 hours after meal and add sliding scale Prov:MOUNIKA TILLMAN MD 04/17/24 Insulin Glargine (Lantus Solostar) 100 Unit/Ml Inj, 90 UNITS SC DAILY for 28 Days, #30 INJ Prov:MOUNIKA TILLMAN MD 04/17/24 Reported Medications Atorvastatin Calcium (ATORVASTATIN CALCIUM) 40 Mg Tab, 1 TAB PO HS 01/27/25 Omeprazole (Gnp Omeprazole) 20 Mg Tab, 20 MG PO DAILY, TAB 12/04/24 Ondansetron Odt 4MG Tab (ZOFRAN PO) 4 Mg Tb, 4 MG PO PRN for NAUSEA OR VOMITING, TAB ODT TAB-DISSOLVE IN MOUTH, THEN SWALLOW 12/04/24 Aspirin (Aspirin Low Dose) 81 Mg Chw, 81 MG PO DAILY, TAB.CHEW 12/04/24 Semaglutide (Ozempic) 4 Mg/3 Ml Inj, 2 MG SC QWEEKLY, INJ 09/05/24 Lisinopril (Lisinopril) 10 Mg Tab, 1 TAB PO DAILY 09/05/24 Mesalamine (Mesalamine Dr) 400 Mg Cap, 2 CAP PO BID 09/05/24 Mesalamine (Canasa) 1,000 Mg Sup, 400 MG RE BID, SUPP 08/28/24 Metoprolol Tartrate (Metoprolol Tartrate) 25 Mg Tab, 25 MG PO DAILY for 30 Days, MG 08/28/24 Semaglutide (Ozempic) 2 Mg/3 Ml Inj, 2 MG SC, INJ 08/13/24 Metoprolol Tartrate (Metoprolol Tartrate) 25 Mg Tab, 1 TAB PO BID, #180 TAB 1 Refill 08/13/24 Mesalamine (Mesalamine Dr) 400 Mg Cap, 400 MG PO, CAP 08/13/24 Duloxetine Hcl (Cymbalta) 60 Mg Cap, 1 CAP PO DAILY, #90 CAP 3 Refills 08/13/24 Ondansetron HCl (Ondansetron) 4 Mg Tab, 4 MG PO DAILY PRN for NAUSEA 07/15/23 Pitolisant Hydrochloride (Wakix) 17.8 Mg Tab, 2 TAB PO DAILY for NARCOLEPSY for 90 Days, #180 11/02/21 Lisinopril (Lisinopril) 10 Mg Tab, 10 MG PO DAILY for 30 Days, MG 07/26/16 Information Source: Emergency Med Personnel Mode of Arrival: EMS Timing: Minutes Duration: Since onset Prehospital treatment: Accucheck [place]: Shaky, Sweaty, Confusion Symptoms: Confusion History of: Diabetes, Insulin use Past Medical History PAST MEDICAL HISTORY: CAD, CVA, DM, High Lipids, HTN, [place] Surgical History: Appendectomy, Cholecystectomy, , Hernia Repair 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: Denies all 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 EQUIPMENT MECHANIC Hx Family History Family History: Reviewed,noncontributory to illness Social History Smoker: Non-Smoker Alcohol: Rarely Drugs: Denies Drug Use Lives In: Home Unable to Obtain due to: Altered Mental Status Physical Exam General Appearance: No Apparent Distress, Normal HEENT: Normal ENT Inspection, Pharynx Normal, TMs Normal Neck: Full Range of Motion, Non-Tender, Normal, Normal Inspection Respiratory: Chest Non-Tender, Lungs Clear, No Accessory Muscle Use, No Respiratory Distress, Normal Breath Sounds Cardiovascular: No Edema, No JVD, No Murmur, No Gallop, Normal Peripheral Pulses, Regular Rate/Rhythm Breast Exam: Deferred Gastrointestinal: No Organomegaly, Non Tender, No Pulsatile Mass, Normal Bowel Sounds, Soft Genitalia: Deferred Pelvic: Deferred Rectal: Deferred Extremities: No calf tenderness, Normal capillary refill, Normal inspection, Normal range of motion, Non-tender, No pedal edema Musculoskeletal : Apperance: Normal Neurologic: Alert, precinct police captain II-XII nml as Tested, No Motor Deficits, Normal Affect, Normal Mood, No Sensory Deficits Cerebellar Function: Normal Reflexes: Normal Skin: Dry, Normal Color, Warm Lymphatic: No Adenopathy Was a procedure done? Was a procedure done?: No Differential Diagnosis (DM) Differential Diagnosis: Diabetic Coma, DKA, Electrolyte Abnormality, Encephalopathy, Hyperglycemia, UTI X-Ray, Labs, Meds, VS Vital Signs Date Time Temp Pulse Resp B/P (MAP) Pulse Ox O2 Delivery O2 Flow Rate FiO2 02/26/25 04:40 99.0 123 28 148/76 98 99.0 Time of 1ST Reevaluation: 04:59 Reevaluation 1ST: Unchanged Patient Education/Counseling: Diagnosis, Treatment Family Education/Counseling: No Family Present SEPSIS Sepsis Screen Date sepsis recognized/suspect: Feb 26, 2025 Time Sepsis recognized/suspect: 439 Recent Procedure: No On Antibiotic Therapy: No Respiratory Rate >20: Yes Heart Rate >90: Yes Temp<36 C (96.8 F) or >38.3 C: No SBP <90 or MAP <65 mmHG: No New Acute Mental Status Change: No Is the patient on CPAP, BIPAP,: No Physician Orders Complete Blood Count (02/26/25 04:55) Comprehensive Metabolic Panel (02/26/25 04:55) Chest Portable (02/26/25 04:55) Urinalysis (02/26/25 04:55) [place] Iv (02/26/25 04:55) Magnesium (02/26/25 04:55) Sodium Chloride 0.9% (02/26/25 05:00) Head Without Contrast (02/26/25 04:55) Venous Blood Gas (02/26/25 04:55) Drug Screen (02/26/25 04:55) Beta-Hydroxybutyrate (02/26/25 04:55) Lactic Acid W/ Reflex Order (02/26/25 04:58) Blood Culture (02/26/25 04:58) Vital Signs Date Time Temp Pulse Resp B/P (MAP) Pulse Ox O2 Delivery O2 Flow Rate FiO2 02/26/25 04:40 99.0 123 28 148/76 98 99.0 Departure 1 Departure Time of Disposition: 07:00 Impression: Primary Impression: Metabolic encephalopathy Additional Impression: TYPE 2 DIABETES MELLITUS WITH HYPERGLYCEMIA Disposition: ADMITTED INPATIENT Admit to: Med Surg Condition: Guarded Discharged With: Self Comments 64-year-old female with history of poorly-controlled diabetes now with high blood glucose and decreased mental status. Patient was given IV fluids and insulin. Patient will need to be admitted for metabolic encephalopathy and uncontrolled diabetes with hyperglycemia Critical Care Note Critical Care Time?: Yes (35 min-critical care time only) Critical care comment: Hyperglycemia Total critical care time: Approximately 36 minutes Due to a high probability of clinically significant, life threatening deterioration, the patient required my highest level of preparedness to intervene emergently and I personally spent this critical care time directly and personally managing the patient. This critical care time included obtaining a history; examining the patient; pulse oximetry; ordering and review of studies; arranging urgent treatment with development of a management plan; evaluation of patient's response to treatment; frequent reassessment; and, discussions with other providers. This critical care time was performed to assess and manage the high probability of imminent, life-threatening deterioration that could result in multi-organ failure. It was exclusive of separately billable procedures and treating other patients. Stability Stability form required: No Heart Score Heart Score: Heart Score Response (Comments) Value History N/A 0 EKG N/A 0 Age N/A 0 Risk Factors N/A 0 Troponin N/A 0 Total 0 I personally scribed for RAVINDRA DEY MD ([email or web address]) on 02/26/25 at 05:01. Electronically submitted by Ricardo Alvarado ([email or web address]). RAVINDRA DEY MD Feb 26, 2025 05:01
[2025-02-26] MEDS: InsuLIN REG 1unit/0.01ml Soln (100units/ml) SC ONE (05:48)
[2025-02-26] MEDS: SODIUM CHLORIDE 0.9% 1,000 ML IV ONE ×3 (06:00→16:36)
--- NOTE | 2025-02-26 06:15 | DVH ---
CHEST RADIOGRAPH Indication: sob Technique: Single frontal view of the chest was obtained Comparison: XY CHEST XRAY 1 VIEW on DOS: 01/27/25 FINDINGS: Lines and Tubes: None Lungs: No focal consolidation. Pleura: No effusion. No pneumothorax. Cardiomediastinal contours: Unremarkable Bones: No acute osseous abnormality. IMPRESSION: 1. No acute cardiopulmonary disease.
--- NOTE | 2025-02-26 06:34 | DVH ---
EXAM: CT HEAD WITHOUT CONTRAST INDICATION: aloc TECHNIQUE: CT of the head without intravenous contrast. Coronal and sagittal reformatted images are s ubmitted. Radiation Dose : 1. Head: CT Dose: CTDI volume is 63.99 mGy. Dose-length product is 1259.2 mGy*cm The dose indicators for CT are the volume Computed Tomography (CT) Dose Index (CTDIvol) and the Dose Length Product (DLP), and are measured in units of mGy and mGy-cm, respectively. These indicators are not patient dose, but values generated from the CT scanner acquisition factors. The report includes radiation exposure data for exposures received during this examination. All CT scans at this medical facility are performed using dose modulation techniques as appropriate to a performed exam including the following: Automated exposure control was utilized; adjustment of the MA and/or KV according to patient size; and use of iterative reconstruction technique. COMPARISON: CT scan of the head dated 01/18/25 FINDINGS: There is no evidence of acute intracranial hemorrhage, extra-axial collection, mass effect, midline s hift, herniation or hydrocephalus. There are periventricular and subcortical hypodensities, nonspecific, but likely reflecting sequelae of chronic microvascular ischemic changes. The ventricles, sulci and cisterns are age appropriate. The fang-white differentiation is intact. The visualized paranasal sinuses and mastoid air cells are clear. No depressed calvarial fracture. The surrounding soft tissues are unremarkable. IMPRESSION: 1. No acute intracranial abnormality.
[2025-02-26 07:29] LABS: Hemoglobin 14.0 g/dL (12.2-16.2)
[2025-02-26 07:32] LABS: Hematocrit 42.2 % (36.0-46.0); Mean Corpuscular Hemoglobin 27.2 pg (28.0-32.0); Mean Corpuscular Volume 82.0 fL (80.0-100.0)
[2025-02-26 07:39] LABS: Alanine Aminotransferase 26 U/L (7-40); Albumin 4.5 g/dL (3.2-4.8); Alkaline Phosphatase 111 U/L (46-116); Anion Gap 13 (5-15); BUN/Creatinine Ratio 13.5 (10.0-20.0); Blood Urea Nitrogen 12 mg/dL (9-23); Calcium 9.9 mg/dL (8.7-10.4); Chloride 101 mmol/L (98-107); Magnesium 1.8 mg/dL (1.6-2.6); Potassium 4.9 mmol/L (3.5-5.1); Total Protein 7.6 g/dL (5.7-8.2)
[2025-02-26 07:40] LABS: Bilirubin, Total 0.4 mg/dL (0.2-1.0)
[2025-02-26 07:46] LABS: Carbon Dioxide 20 mmol/L (20-31); Glucose 490 mg/dL (74-106); Lactic Acid w/Reflex 4.3 mmol/L (0.4-2.0); Sodium 134 mmol/L (136-145)
[2025-02-26 08:38] LABS: Total Cells Counted 100.0 (100)
[2025-02-26 08:39] LABS: Anisocytosis Slight
[2025-02-26] MEDS ORDERED: DOCUSATE SOD 100 MG CAP PO PRN (09:45)
[2025-02-26] MEDS ORDERED: METO25TA93 PO (10:02)
[2025-02-26] MEDS ORDERED: DEXTROSE (50%) 50ML SYRG IV PRN (10:15)
--- NOTE | 2025-02-26 10:19 | DVHHP2 ---
History of Present Illness Reason for Visit: Hyperglycemia History of Present Illness Dara Anthony is a 64-year-old female with past medical history of hypertension, hyperlipidemia, diabetes, CVA, and CAD who came to the hospital for hyperglycemia. Patient lives alone. She states that she has been stressed lately and when she is stressed she eats poorly. Last night she noticed her sugars were elevated. At about 0300 patient took her blood sugar because she was not feeling well and it was elevated, prompting her to call EMS to bring her to the hospital. Cardiovascular: CAD, HTN, [place], hyperipidemia TWISTER DOFFER: CVA (August 2024 left sided weakness) Endocrine: Diabetes Past Surgical History: Appendectomy, Cholecystectomy, (x 2), Hernia Repair, Other (right ankle, ncek, back, ), Tubal Ligation Smoke: No ALCOHOL: rare Drugs: None Lives: Alone Domestic Violence: Neg Review of Systems Constitutional: Yes: Weakness, Malaise; No: Fever, Chills, Sweats, Other Eyes: No: Pain, Vision change, Conjunctivae inflammation, Eyelid inflammation, Other, Redness ENT: No: Ear pain, Ear discharge, Nose pain, Nose discharge, Nose congestion, Mouth pain, Mouth swelling, Throat pain, Throat swelling, Other Respiratory: No: Cough, Dry, Shortness of breath, SOB with excertion, Wheezing, Hemoptysis, Pleuritic Pain, Sputum, Wheezing, Other Cardiovascular: No: Chest Pain, Palpitations, Orthopnea, Paroxysmal Noc. Dyspnea, Edema, Lt Headedness, Other Gastrointestinal: No: Nausea, Vomiting, Abdominal Pain, Diarrhea, Constipation, Melena, Hematochezia, Other Genitourinary: No Dysuria, No Frequency, No Incontinence, No Hematuria, No Retention, No Other Musculoskeletal: No: other, neck pain, shoulder pain, arm pain, back pain, hand pain, leg pain, foot pain Skin: No: Rash, Lesions, Jaundice, Bruising, Other Neurological: No: Weakness, Numbness, Incoordination, Change in speech, Confusion, Seizures, Other Allergies: Coded Allergies: Sulfa Drugs (Verified Allergy, Mild, rash, 08/13/24) Sulfa Antibiotics (Unverified Allergy, Unknown, 09/05/24) Indomethacin (Verified Adverse Reaction, Mild, migraine, 08/13/24) Medications Current Medications Medications Dose Ordered Sig/Feng Route Start Time Stop Time Status Last Admin Dose Admin Ondansetron HCl 4 mg Q4HP PRN IV 02/26/25 09:45 UNV Docusate Sodium 100 mg BIDPRN PRN PO 02/26/25 09:45 UNV Exam Vital Signs Vital Signs Date Time Temp Pulse Resp B/P (MAP) Pulse Ox O2 Delivery O2 Flow Rate FiO2 02/26/25 08:19 97.7 106 18 157/99 (118) 94 97.7 02/26/25 08:19 Room Air* 0 21 General Appearance: Alert, Oriented X3, mild distress HEENT: Atraumatic, PERRLA Respiratory: Clear to auscultation, Normal air movement Cardiovascular: Normal S1, Normal S2, Other (SR-ST) Abdominal: Normal bowel sounds, Soft, No tenderness, No hepatospenomegaly Extremities: No clubbing, No cyanosis, No edema, Normal pulses, No tende rness/swelling Skin: No rashes, No breakdown, No significant lesion Neuro: Normal gait, Normal speech, Strength at 5/5 X4 ext Psych/Mental Status: Other (Anxious) Labs/Xrays Labs Test 02/26/25 08:32 02/26/25 06:33 02/26/25 05:32 Range/Units Lactic Acid Level 3.9 *H 0.4-2.0 mmol/L White Blood Count 11.9 H 4.4-10.8 10^3/uL Red Blood Count 5.15 4.0-5.20 10^6/uL Hemoglobin 14.0 12.2-16.2 g/dL Hematocrit 42.2 36.0-46.0 % Mean Corpuscular Volume 82.0 80.0-100.0 fL Mean Corpuscular Hemoglobin 27.2 L 28.0-32.0 pg Mean Corpuscular Hemoglobin Concent 33.2 32.0-36.0 g/dL Red Cell Distribution Width 16.5 H 11.8-14.3 % Platelet Count 285 140-450 10^3/uL Mean Platelet Volume 9.0 6.9-10.8 fL Neutrophils (%) (Auto) 37.0-80.0 % Lymphocytes (%) (Auto) 10.0-50.0 % Monocytes (%) (Auto) 0.0-12.0 % Basophils (%) (Auto) 0.0-2.0 % Neutrophils # (Auto) 1.6-8.6 10 ^3/uL Lymphocytes # (Auto) 0.4-5.4 10 ^3/uL Monocytes # (Auto) 0-1.3 10 ^3/uL Differential Total Cells Counted 100.0 100 Neutrophils % (Manual) 90 H 37.0-80.0 Band Neutrophils % (Manual) 4 Lymphocytes % (Manual) 4 L 10.0-50.0 Monocytes % (Manual) 2 0-12 Eosinophils % (Manual) 0 0-7 Basophils % (Manual) 0 0.0-2.0 Metamyelocytes % (manual) 0 Myelocytes % (Manual) 0 Promyelocytes % (Manual) 0 Blast Cells % (Manual) 0 Reactive Lymphocytes 0 Platelet Estimate Adequate Anisocytosis (manual) Slight Sodium Level 134 L 136-145 mmol/L Potassium Level 4.9 3.5-5.1 mmol/L Chloride Level 101 98-107 mmol/L Carbon Dioxide Level 20 20-31 mmol/L Anion Gap 13 5-15 Blood Urea Nitrogen 12 9-23 mg/dL Creatinine 0.89 0.550-1.02 mg/dL Glomerular Filtration Rate Calc 72 >90 mL/min BUN/Creatinine Ratio 13.5 10.0-20.0 Serum Glucose 490 *H 74-106 mg/dL Calcium Level 9.9 8.7-10.4 mg/dL Magnesium Level 1.8 1.6-2.6 mg/dL Total Bilirubin 0.4 0.2-1.0 mg/dL Aspartate Amino Transferase (AST) 17 13-40 U/L Alanine Aminotransferase (ALT) 26 7-40 U/L Alkaline Phosphatase 111 46-116 U/L Total Protein 7.6 5.7-8.2 g/dL Albumin 4.5 3.2-4.8 g/dL Beta-Hydroxybutyric Acid 0.238 < 0.4 mmol/L POC Glucose 540 *H 70-106 mg/dl CHEST RADIOGRAPH FINDINGS: Lines and Tubes: None Lungs: No focal consolidation. Pleura: No effusion. No pneumothorax. Cardiomediastinal contours: Unremarkable Bones: No acute osseous abnormality. IMPRESSION: 1. No acute cardiopulmonary disease. EXAM: CT HEAD WITHOUT CONTRAST FINDINGS: There is no evidence of acute intracranial hemorrhage, extra-axial collection, mass effect, midline shift, herniation or hydrocephalus. There are periventricular and subcortical hypodensities, nonspecific, but likely reflecting sequelae of chronic microvascular ischemic changes. The ventricles, sulci and cisterns are age appropriate. The fang-white differentiation is intact. The visualized paranasal sinuses and mastoid air cells are clear. No depressed calvarial fracture. The surrounding soft tissues are unremarkable. IMPRESSION: 1. No acute intracranial abnormality. SEPSIS Sepsis Screen Date sepsis recognized/suspect: Feb 26, 2025 Time Sepsis recognized/suspect: 558 Recent Procedure: No On Antibiotic Therapy: No Respiratory Rate >20: No Heart Rate >90: Yes Temp<36 C (96.8 F) or >38.3 C: No SBP <90 or MAP <65 mmHG: No New Acute Mental Status Change: Yes Is the patient on CPAP, BIPAP,: No Physician Orders Chest Portable (02/26/25 04:55) Urinalysis (02/26/25 04:55) Heplock Iv (02/26/25 04:55) Head Without Contrast (02/26/25 04:55) Drug Screen (02/26/25 04:55) Blood Culture (02/26/25 04:58) Venous Blood Gas (02/26/25 07:29) Admit (02/26/25 09:41) Code Status (02/26/25 09:41) Ondansetron Hcl (Zofran) (02/26/25 09:45) Docusate Sodium Capsule (Colace Capsule) (02/26/25 09:45) Enoxaparin Sodium (Lovenox) (02/26/25 10:00) Complete Blood Count (02/27/25 04:00) Comprehensive Metabolic Panel (02/27/25 04:00) Cardiac Diet-2gna,Lofat,Lochol (02/26/25 Lunch) Pt Request For Service (02/26/25 09:41) Condition: Serious (02/26/25 09:41) Acetaminophen Tablet (Tylenol Tablet) (02/26/25 09:45) Tramadol Hcl (Ultram) (02/26/25 09:45) (Nf) Aspirin (Aspirin Low Dose) (02/26/25 10:00) (Nf) Duloxetine Hcl (Cymbalta) (02/26/25 10:00) (Nf) Lisinopril (02/26/25 10:00) Vital Signs Date Time Temp Pulse Resp B/P (MAP) Pulse Ox O2 Delivery O2 Flow Rate FiO2 02/26/25 08:19 97.7 106 18 157/99 (118) 94 97.7 02/26/25 08:19 106 18 94 Room Air* 0 21 02/26/25 08:00 102 02/26/25 05:57 Room Air* 0 21 02/26/25 05:38 97.3 111 18 146/86 (106) 92 97.3 02/26/25 05:37 113 02/26/25 04:40 99.0 123 28 148/76 98 99.0 Laboratory Tests Test 02/26/25 06:33 02/26/25 08:32 Lactic Acid Level 4.3 mmol/L (0.4-2.0) *H 3.9 mmol/L (0.4-2.0) *H White Blood Count 11.9 10^3/uL (4.4-10.8) H Medications Medications Dose Ordered Sig/Feng Route Start Time Stop Time Status Last Admin Dose Admin Insulin Human Regular 8 units ONCE ONCE SC 02/26/25 05:00 02/26/25 05:01 DC 02/26/25 05:48 8 UNITS Sodium Chloride 1,000 ml @ 1,000 mls/hr Q1H ONCE IV 02/26/25 05:00 02/26/25 05:59 DC 02/26/25 06:00 1,000 MLS/HR Sodium Chloride 1,000 ml @ 1,000 mls/hr Q1H ONCE IV 02/26/25 08:30 02/26/25 09:29 DC 02/26/25 09:18 1,000 MLS/HR Assessment/Plan Assessment/Plan Assessment: Uncontrolled diabetes mellitus, Hyperglycemia, Lactic acidosis, Leukocytosis, Hypertension, Hyperlipidemia, Plan: Admit to Med-Surg, IV hydration, IV antibiotics, Blood cultures, Urine culture, A1c, Accu checks Q AC&HS with sliding scale, Home medications reconciled, Plan discussed with: Patient My Orders Orders - [facility] ATTENDANT Procedure Category Date Status Time Admit ADMIT 02/26/25 Transmitted 09:41 Code Status CODE 02/26/25 Transmitted 09:41 Ondansetron Hcl PHA 02/26/25 Transmitted (Zofran) 09:45 Docusate Sodium PHA 02/26/25 Transmitted Capsule (Colace 09:45 Enoxaparin Sodium PHA 02/26/25 Transmitted (Lovenox) 10:00 Complete Blood Count LAB 02/27/25 Verified 04:00 Comprehensive LAB 02/27/25 Verified Metabolic Panel 04:00 Cardiac DIET 02/26/25 Transmitted Diet-2gna,Lofat,Lochol Lunch Pt Request For Service PT 02/26/25 Transmitted 09:41 Condition: Serious RAE 02/26/25 Transmitted 09:41 Acetaminophen Tablet PHA 02/26/25 Transmitted (Tylenol Tablet) 09:45 Tramadol Hcl (Ultram) PHA 02/26/25 Transmitted 09:45 (Nf) Aspirin (Aspirin PHA 02/26/25 Transmitted Low Dose) 10:00 (Nf) Duloxetine Hcl PHA 02/26/25 Transmitted (Cymbalta) 10:00 (Nf) Lisinopril PHA 02/26/25 Transmitted 10:00 Date of Service: Feb 26, 2025 Billing Provider: SCOTT MORSE Common Visit Codes: [id number] INP/OBS CARE (MOD) SCOTT MORSE Feb 26, 2025 10:19
[2025-02-26 10:49] LABS: Urine Protein, UAD Negative (Negative)
[2025-02-26 10:59] LABS: Amphetamine Screen, Urine Neg (NEGATIVE); Barbiturate Scree,Urine Neg (NEGATIVE); Benzodiazephine Screen, Urine Neg (NEGATIVE); Cocaine Screen, Urine Neg (NEGATIVE); Opiate Scree,Urine Neg (NEGATIVE)
[2025-02-26 11:03] LABS: Cannabinoid Screen, Urine Neg (NEGATIVE); Phencyclidine Screen, Urine Neg (NEGATIVE)
[2025-02-26] MEDS: ACCU-CHEK COMFORT CURVE STRIP VI SCH (11:25)
[2025-02-26] MEDS: InsuLIN REG 1unit/0.01ml Soln (100units/ml) SC SCH ×2 (11:32→22:00)
[2025-02-26] MEDS: ENOXAPARIN SOD 40 MG/0.4 ML SYRINGE SC SCH (11:32)
[2025-02-26] MEDS: ACETAMINOPHEN 325 MG TAB PO PRN (11:34)
[2025-02-26] MEDS: METOPROLOL SUCCINATE XL 50 MG TAB PO SCH (11:36)
[2025-02-26] MEDS ORDERED: INSU1INJ19 SC (15:45)
[2025-02-26] MEDS: clonazePAM 0.5 MG TAB PO PRN (16:36)
[2025-02-26 17:02] LABS: Lactic Acid w/Reflex 2.9 mmol/L (0.4-2.0)
[2025-02-26] MEDS ORDERED: VANCOMYCIN 1.25GM/250ML 250 ML IV ONE (17:30)
[2025-02-26] MEDS ORDERED: VANCOMYCIN PER PHARMACY 0 MG IV SCH (17:30)
[2025-02-26] MEDS: VANCOMYCIN 1GM/250ML KIT 250 ML IV SCH (19:59)
[2025-02-26] MEDS: HYDROcodone-ACET 5/325MG TAB PO PRN (20:00)
[2025-02-26] MEDS: NITROGLYCERIN 0.4 MG SL TAB SL ONE (21:39)
[2025-02-26] MEDS: SODIUM CHLORIDE 0.9% 500 ML IV ONE (21:44)
[2025-02-26] MEDS: SODIUM CHLOR 0.9% PF (SALINE LOCK) 10ML VIAL/SYR IV SCH (21:45)
[2025-02-26] MEDS: NITROGLYCERIN 0.4 MG SL TAB SL PRN (21:46)
[2025-02-26] MEDS: diphenhdrAMINE HCL 50 MG/1 ML VL IV PRN (21:57)
[2025-02-26] MEDS ORDERED: clonazePAM 0.5 MG TAB PO SCH (22:00)
[2025-02-26] MEDS: INSULIN LANTUS (GLARGINE) 1 /0.01ml (100units/ml) SC SCH (22:00)
[2025-02-26] MEDS: MORPHINE SULFATE INJ 2 MG/ml SYRG IV PRN (22:13)
[2025-02-26] MEDS: ATORVASTATIN 20 MG TAB PO SCH (22:19)
[2025-02-27] VITALS (8 sets, daily range): BP systolic 103–122; BP diastolic 64–74; PULSE 69–98; RESP 16–20; TEMP 97.6–98.5; O2SAT 94–100
[2025-02-27 07:38] LABS: Hematocrit 36.1 % (36.0-46.0); Hemoglobin 12.0 g/dL (12.2-16.2); Mean Corpuscular Hemoglobin 27.5 pg (28.0-32.0); Mean Corpuscular Volume 82.4 fL (80.0-100.0); Nucleated Red Blood Cells % 0.1 %
[2025-02-27 07:50] LABS: Alanine Aminotransferase 20 U/L (7-40); Alkaline Phosphatase 75 U/L (46-116); Anion Gap 11 (5-15); BUN/Creatinine Ratio 14.7 (10.0-20.0); Blood Urea Nitrogen 10 mg/dL (9-23); Carbon Dioxide 23 mmol/L (20-31); Chloride 102 mmol/L (98-107); Potassium 4.2 mmol/L (3.5-5.1); Sodium 136 mmol/L (136-145); Total Protein 6.1 g/dL (5.7-8.2)
[2025-02-27 07:51] LABS: Albumin 3.7 g/dL (3.2-4.8); Bilirubin, Total 0.5 mg/dL (0.2-1.0)
[2025-02-27 07:52] LABS: Calcium 8.5 mg/dL (8.7-10.4); Glucose 242 mg/dL (74-106)
--- NOTE | 2025-02-27 09:23 | DVHPN2 ---
Subjective Continues to complain of generalized weakness and generalized pain; alert and oriented to person, place, and time Reviewed: Care Plan, H&P, Labs, Medications, Previous Orders, Radiology Changes from previous H/P or p: Changes Objective Vitals Vital Signs Date Time Temp Pulse Resp B/P (MAP) Pulse Ox O2 Delivery O2 Flow Rate FiO2 02/27/25 07:59 72 16 100 Nasal Cannula* 2 28 02/27/25 05:00 98.5 122/67 (85) 98.5 Intake/Output Intake and Output 02/27/25 07:00 Intake Total 1700 ml Output Total 1700 ml Balance 0 ml Intake Oral 1200 ml IV Total 500 ml Output Urine Total 1700 ml General Appearance: Alert, Oriented X3, Cooperative, No acute distress, Other (Morbidly obese) HEENT: Atraumatic Lungs: Clear to auscultation, Normal air movement Cardiovascular: Regular rate, Normal S1, Normal S2, No murmurs Abdomen: Normal bowel sounds, Soft, No tenderness Extremities: No edema Neuro: Normal speech, Cranial nerves 3-12 NL Psych/Mental Status: Mental status NL, Mood NL Medications Current Medications Medications Dose Ordered Sig/Feng Route Start Time Stop Time Status Last Admin Dose Admin Ondansetron HCl 4 mg Q4HP PRN IV 02/26/25 09:45 Docusate Sodium 100 mg BIDPRN PRN PO 02/26/25 09:45 Enoxaparin Sodium 40 mg DAILY SC 02/26/25 10:00 02/26/25 11:32 40 MG Acetaminophen 650 mg Q6HP PRN PO 02/26/25 09:45 02/26/25 11:34 650 MG Tramadol HCl 50 mg TID PRN PO 02/26/25 09:45 02/27/25 08:18 50 MG Aspirin 81 mg DAILY PO 02/27/25 11:10 Duloxetine HCl 30 mg DAILY PO 02/27/25 10:00 Future Hold Lisinopril 10 mg DAILY PO 02/27/25 10:00 Metoprolol Succinate 25 mg DAILY PO 02/26/25 11:29 02/26/25 11:36 25 MG Diagnostic Test (Pha) 1 strip ACHS 02/26/25 11:30 02/27/25 06:27 1 STRIP Insulin Human Regular HS SC 02/26/25 22:00 02/26/25 22:00 8 UNITS Insulin Human Regular AC SC 02/26/25 11:30 02/26/25 16:47 15 UNITS Dextrose 50 ml UD PRN IV 02/26/25 10:15 Clonazepam 0.5 mg Q12HP PRN PO 02/26/25 15:45 02/26/25 16:36 0.5 MG Insulin Glargine 45 units BID SC 02/26/25 22:00 02/26/25 22:00 45 UNITS Ceftriaxone Sodium 50 ml @ 100 mls/hr DAILY@09 IV 02/27/25 09:00 02/27/25 08:17 100 MLS/HR Vancomycin HCl 0 ml @ 0 mls/hr UD IV 02/26/25 17:30 Atorvastatin Calcium 40 mg HS PO 02/26/25 22:00 02/26/25 22:19 40 MG Vancomycin HCl 250 ml @ 200 mls/hr Q12H IV 02/26/25 19:00 02/26/25 19:59 200 MLS/HR Acetaminophen/ Hydrocodone Bitart 1 tab Q6HPRN PRN PO 02/26/25 19:00 02/27/25 05:50 1 TAB Nitroglycerin 0.4 mg Q5MINP PRN SL 02/26/25 21:15 02/26/25 23:48 0.4 MG Morphine Sulfate 2 mg Q30M PRN IV 02/26/25 21:15 02/26/25 23:54 2 MG Sodium Chloride 10 ml Q8HR IV 02/26/25 22:00 02/27/25 06:27 10 ML Diphenhydramine HCl 25 mg Q4HP PRN IV 02/26/25 21:20 02/26/25 21:57 25 MG Laboratory Results Laboratory Tests 02/27/25 05:07 Chemistry Test 02/27/25 05:07 Albumin 3.7 g/dL (3.2-4.8) Calcium Level 8.5 mg/dL (8.7-10.4) L Total Protein 6.1 g/dL (5.7-8.2) LFT Test 02/27/25 05:07 Alanine Aminotransferase (ALT) 20 U/L (7-40) Alkaline Phosphatase 75 U/L (46-116) Aspartate Amino Transferase (AST) 21 U/L (13-40) Total Bilirubin 0.5 mg/dL (0.2-1.0) Urinalysis Test 02/26/25 09:20 Urine Color Light-yellow (Yellow) Urine Clarity Clear (Clear) Urine pH 5.0 (5.0-9.0) Urine Specific [place] 1.031 (1.001-1.035) Urine Protein Negative (Negative) Urine Ketones Trace (Negative) Urine Blood Negative /uL (Negative) Urine Nitrite 2+ (Negative) H Urine Bilirubin Negative (Negative) Urine Urobilinogen Normal mg/dL (Negative) Urine Leukocyte Esterase Negative /uL (Negative) Urine RBC <1 /hpf (0 - 4) Urine Microscopic WBC 2 /HPF (0-5) Urine Squamous Epithelial Cells Few /hpf (<5) Urine Bacteria Mod /hpf (None Seen) H Urine Glucose 4+ mg/dL (Normal) H Microbiology Microbiology Date/Time Source Procedure Growth Status 02/26/25 06:24 Blood Blood Culture - Preliminary NO GROWTH AFTER 24 HOURS OF INCUBATION. Resulted Labs and/or images reviewed: Labs reviewed by me, Image(s) reviewed by me Assessment/Plan Assessment/Plan A 64-year-old female patient; with multiple comorbidities; who presented to the emergency department with altered mental status. #Acute metabolic/toxic encephalopathy in the setting of sepsis and hyperglycemia; mental status back to normal; reviewed head CT and drug screen; continue monitoring #Acute hypoxic respiratory failure; chest x-ray did not show any abnormalities; ordered D-dimer; continue oxygen therapy as needed; continue monitoring #Sepsis with leukocytosis and lactic acidosis due to Gram-negative Rods UTI; pending final urine culture; negative blood cultures; continue IV ceftriaxone; discontinued IV vancomycin; continue monitoring #Unspecified psychotic disorder along with anxiety and depression; no suicide ideation/plan; continue home medications; continue monitoring #Uncontrolled diabetes mellitus with hyperglycemia; hemoglobin A1c of 10%; holding oral home antidiabetic medications; continue long-acting insulin and insulin sliding scale with hypoglycemia protocol; to adjust insulin dosing according to blood glucose monitoring; continue monitoring #Hypertensive heart disease with chronic diastolic heart failure; not in exacerbation; continue antihypertensive medications and adjust according to blood pressure reading; continue monitoring #Chronic pain syndrome; continue pain management as indicated; continue monitoring #Alcohol use disorder; counseled on alcohol use cessation for 16 minutes; no episodes of withdrawal; continue monitoring #Metabolic syndrome with dyslipidemia; continue home statin; continue monitoring #On and off chest pain; ACS/CAD ruled out in previous admissions; to continue home aspirin; continue monitor #Morbid obesity; counseled the patient on the importance of adopting healthy lifestyle with diet and exercise in order to lose weight; continue monitoring Goals of care discussed with the patient for 20 minutes; full code Late Entry. This medical document was created using an electronic medical record system with computerized dictation system. Although this document has been carefully reviewed, there might still be some phonetic and typographical errors. These areas are purely typographical due to imperfections of the software programs, and do not reflect any compromise in the patient's medical care. Plan discussed with: Patient, Other (Nurse) Date of Service: Feb 27, 2025 Billing Provider: AMARA VEGA MD Common Visit Codes: [id number] INP/OBS CARE(HIGH) Secondary Visit Codes: [id number] CHNG SMOKING >10MIN (Counseled for 16 minutes on alcohol use cessation), [id number] CARE PLAN 30 MINUTES (20 minutes) AMARA VEGA MD Feb 27, 2025 09:23
[2025-02-27] MEDS: SODIUM CHLORIDE 0.9% 1,000 ML IV ONE (10:55)
[2025-02-27 11:01] LABS: Lactic Acid w/Reflex 2.1 mmol/L (0.4-2.0)
[2025-02-27] MEDS: LISINOPRIL 5 MG TAB PO SCH (11:29)
[2025-02-27] MEDS: MORPHINE SULFATE INJ 2 MG/ml SYRG IV PRN (13:56)
[2025-02-27] MEDS: HYDROcodone-ACET 10/325MG TAB PO PRN (16:37)
[2025-02-28] VITALS (8 sets, daily range): BP systolic 90–121; BP diastolic 52–68; PULSE 64–73; RESP 16–20; TEMP 97.5–98.1; O2SAT 92–100
[2025-02-28 07:40] LABS: Hematocrit 36.0 % (36.0-46.0); Hemoglobin 12.0 g/dL (12.2-16.2); Mean Corpuscular Hemoglobin 27.2 pg (28.0-32.0); Mean Corpuscular Volume 81.4 fL (80.0-100.0); Nucleated Red Blood Cells % 0.0 %
[2025-02-28 08:02] LABS: Anion Gap 12 (5-15); Carbon Dioxide 25 mmol/L (20-31); Chloride 103 mmol/L (98-107); Potassium 3.9 mmol/L (3.5-5.1); Sodium 140 mmol/L (136-145)
[2025-02-28 08:03] LABS: Calcium 8.9 mg/dL (8.7-10.4)
[2025-02-28 08:08] LABS: BUN/Creatinine Ratio 14.0 (10.0-20.0)
[2025-02-28 08:11] LABS: Blood Urea Nitrogen 8 mg/dL (9-23); Glucose 148 mg/dL (74-106)
--- NOTE | 2025-02-28 09:15 | DVHPN2 ---
Subjective Continues to complain of generalized weakness and generalized pain; alert and oriented to person, place, and time; complaining of diplopia Reviewed: Care Plan, H&P, Labs, Medications, Previous Orders, Radiology Changes from previous H/P or p: Changes Objective Vitals Vital Signs Date Time Temp Pulse Resp B/P (MAP) Pulse Ox O2 Delivery O2 Flow Rate FiO2 02/28/25 08:06 73 18 112/52 02/28/25 08:00 100 Nasal Cannula* 2 28 02/28/25 05:00 97.5 97.5 Intake/Output Intake and Output 02/28/25 07:00 Intake Total 1620 ml Output Total 3750 ml Balance -2130 ml Intake Oral 1620 ml Output Urine Total 3750 ml General Appearance: Alert, Oriented X3, Cooperative, No acute distress, Other (Morbidly obese) HEENT: Atraumatic Lungs: Clear to auscultation, Normal air movement Cardiovascular: Regular rate, Normal S1, Normal S2, No murmurs Abdomen: Normal bowel sounds, Soft, No tenderness Extremities: No edema Neuro: Normal speech, Cranial nerves 3-12 NL (Unable to confirm if the patient is having diplopia or not on exam) Psych/Mental Status: Mental status NL, Mood NL Medications Current Medications Medications Dose Ordered Sig/Feng Route Start Time Stop Time Status Last Admin Dose Admin Ondansetron HCl 4 mg Q4HP PRN IV 02/26/25 09:45 Docusate Sodium 100 mg BIDPRN PRN PO 02/26/25 09:45 Enoxaparin Sodium 40 mg DAILY SC 02/26/25 10:00 02/27/25 11:29 40 MG Acetaminophen 650 mg Q6HP PRN PO 02/26/25 09:45 02/26/25 11:34 650 MG Aspirin 81 mg DAILY PO 02/27/25 11:10 02/27/25 11:30 81 MG Duloxetine HCl 30 mg DAILY PO 02/27/25 10:00 Hold Lisinopril 10 mg DAILY PO 02/27/25 10:00 02/27/25 11:29 10 MG Metoprolol Succinate 25 mg DAILY PO 02/26/25 11:29 02/27/25 11:30 25 MG Diagnostic Test (Pha) 1 strip ACHS 02/26/25 11:30 02/28/25 06:14 1 STRIP Insulin Human Regular HS SC 02/26/25 22:00 02/27/25 21:52 4 UNITS Insulin Human Regular AC SC 02/26/25 11:30 02/28/25 06:14 3 UNITS Dextrose 50 ml UD PRN IV 02/26/25 10:15 Clonazepam 0.5 mg Q12HP PRN PO 02/26/25 15:45 02/27/25 11:50 0.5 MG Insulin Glargine 45 units BID SC 02/26/25 22:00 02/27/25 21:53 45 UNITS Ceftriaxone Sodium 50 ml @ 100 mls/hr DAILY@09 IV 02/27/25 09:00 02/28/25 08:04 100 MLS/HR Vancomycin HCl 0 ml @ 0 mls/hr UD IV 02/26/25 17:30 Atorvastatin Calcium 40 mg HS PO 02/26/25 22:00 02/27/25 21:51 40 MG Vancomycin HCl 250 ml @ 200 mls/hr Q12H IV 02/26/25 19:00 02/26/25 19:59 200 MLS/HR Nitroglycerin 0.4 mg Q5MINP PRN SL 02/26/25 21:15 02/26/25 23:48 0.4 MG Morphine Sulfate 2 mg Q30M PRN IV 02/26/25 21:15 02/26/25 23:54 2 MG Sodium Chloride 10 ml Q8HR IV 02/26/25 22:00 02/28/25 05:28 10 ML Diphenhydramine HCl 25 mg Q4HP PRN IV 02/26/25 21:20 02/26/25 21:57 25 MG Morphine Sulfate 2 mg Q4HPRN PRN IV 02/27/25 13:15 02/28/25 08:06 2 MG Acetaminophen/ Hydrocodone Bitart 1 tab Q6HP PRN PO 02/27/25 13:15 02/27/25 16:37 1 TAB Laboratory Results Laboratory Tests 02/28/25 05:31 Chemistry Test 02/28/25 05:31 Calcium Level 8.9 mg/dL (8.7-10.4) Coagulation Test 02/28/25 05:31 D-Dimer, Quantitative Pending Urinalysis Test 02/26/25 09:20 Urine Color Light-yellow (Yellow) Urine Clarity Clear (Clear) Urine pH 5.0 (5.0-9.0) Urine Specific [place] 1.031 (1.001-1.035) Urine Protein Negative (Negative) Urine Ketones Trace (Negative) Urine Blood Negative /uL (Negative) Urine Nitrite 2+ (Negative) H Urine Bilirubin Negative (Negative) Urine Urobilinogen Normal mg/dL (Negative) Urine Leukocyte Esterase Negative /uL (Negative) Urine RBC <1 /hpf (0 - 4) Urine Microscopic WBC 2 /HPF (0-5) Urine Squamous Epithelial Cells Few /hpf (<5) Urine Bacteria Mod /hpf (None Seen) H Urine Glucose 4+ mg/dL (Normal) H Microbiology Microbiology Date/Time Source Procedure Growth Status 02/26/25 22:06 Nose MRSA Screen - Final Complete 02/26/25 09:20 Voided Urine Urine Culture - Preliminary Resulted 02/26/25 06:24 Blood Blood Culture - Preliminary NO GROWTH AFTER 48 HOURS OF INCUBATION. Resulted Labs and/or images reviewed: Labs reviewed by me, Image(s) reviewed by me Assessment/Plan Assessment/Plan A 64-year-old female patient; with multiple comorbidities; who presented to the emergency department with altered mental status. #Diplopia; ordered head CT without contrast; no other neurological deficits; continue monitoring #Acute metabolic/toxic encephalopathy in the setting of sepsis and hyperglycemia; mental status back to normal; reviewed head CT and drug screen; continue monitoring #Acute hypoxic respiratory failure; chest x-ray did not show any abnormalities; normal D-dimer; continue oxygen therapy as needed; continue monitoring #Sepsis with leukocytosis and lactic acidosis due to Gram-negative Rods UTI; pending final urine culture; negative blood cultures; continue IV ceftriaxone; discontinued IV vancomycin; continue monitoring #Unspecified psychotic disorder along with anxiety and depression; no suicide ideation/plan; continue home medications; continue monitoring #Uncontrolled diabetes mellitus with hyperglycemia; hemoglobin A1c of 10%; holding oral home antidiabetic medications; continue long-acting insulin and insulin sliding scale with hypoglycemia protocol; to adjust insulin dosing according to blood glucose monitoring; continue monitoring #Hypertensive heart disease with chronic diastolic heart failure; not in exacerbation; continue antihypertensive medications and adjust according to blood pressure reading; continue monitoring #Chronic pain syndrome; continue pain management as indicated; continue monitoring #Alcohol use disorder; counseled on alcohol use cessation for 16 minutes; no episodes of withdrawal; continue monitoring #Metabolic syndrome with dyslipidemia; continue home statin; continue monitoring #On and off chest pain; ACS/CAD ruled out in previous admissions; to continue home aspirin; continue monitoring #Mild normocytic anemia; no signs/symptoms of bleeding; continue monitoring #Morbid obesity; counseled the patient on the importance of adopting healthy lifestyle with diet and exercise in order to lose weight; continue monitoring Late Entry. This medical document was created using an electronic medical record system with computerized dictation system. Although this document has been carefully reviewed, there might still be some phonetic and typographical errors. These areas are purely typographical due to imperfections of the software programs, and do not reflect any compromise in the patient's medical care. Plan discussed with: Patient, Other (Nurse) My Orders Orders - AMARA VEGA MD Procedure Category Date Status Time Morphine Sulfate PHA 02/27/25 In Process Injection 13:15 Hydrocodone-Acet PHA 02/27/25 In Process 10/325mg Tab ([place] 13:15 D-Dimer LAB 02/28/25 In Process 09:03 Date of Service: Feb 28, 2025 Billing Provider: AMARA VEGA MD Common Visit Codes: [id number] INP/OBS CARE(HIGH) AMARA VEGA MD Feb 28, 2025 09:15
[2025-02-28] MEDS: ONDANSETRON HCL 4 MG/2 ML VIAL IV PRN (11:17)
--- NOTE | 2025-02-28 14:27 | DVH ---
Procedure: CT HEAD WITHOUT CONTRAST Study Date and Requested Time: 02/28/2025 01:27 PM History: Rule out stroke Comparison: CT HEAD WITHOUT CONTRAST on DOS: 02/26/25, CT BRAIN on DOS: 01/18/25, CT BRAIN on DOS: Dose: CTDI: 68.74 mGy DLP: 1354.29 mGycm Technique: Multiplanar images obtained through the brain without intravenous contrast. Findings: Mild diffuse brain atrophy. Mild chronic small vessel ischemic changes. Bilateral basal ganglia chron ic lacunar infarcts. Nonspecific focus of calcification within the right paramedian nuno ; unchanged from prior imaging. No hemorrhages, masses, mass effect, midline shift, herniation or cytotoxic edema following a large v ascular territory. No intra-axial or extra-axial fluid collections. No evidence of hydrocephalus. The basal cisterns are patent. Nonspecific Empty sella. The cerebellar tonsils are in normal position. The cerebellum is unremarkabl e. The orbits and globes are unremarkable. The paranasal sinuses and mastoids are clear. There are no wo rrisome calvarial lesions. Unchanged 0.9 x 1.3 cm left frontal scalp soft tissue thickening. Impression: No evidence of acute intracranial abnormality. No significant interval change from prior imaging.
[2025-03-01] VITALS (8 sets, daily range): BP systolic 97–126; BP diastolic 55–78; PULSE 63–89; RESP 16–18; TEMP 97.7–98.6; O2SAT 96–100
[2025-03-01] MEDS: METOCLOPRAMIDE HCL 5MG/ml INJ 2ml VIAL IV PRN (01:19)
[2025-03-01 07:14] LABS: Hematocrit 38.0 % (36.0-46.0); Hemoglobin 12.7 g/dL (12.2-16.2); Mean Corpuscular Hemoglobin 27.3 pg (28.0-32.0); Mean Corpuscular Volume 82.0 fL (80.0-100.0); Nucleated Red Blood Cells % 0.0 %
[2025-03-01 07:16] LABS: Chloride 103 mmol/L (98-107); Sodium 140 mmol/L (136-145)
[2025-03-01 07:17] LABS: Anion Gap 9 (5-15); Calcium 8.7 mg/dL (8.7-10.4); Carbon Dioxide 28 mmol/L (20-31)
[2025-03-01 07:22] LABS: BUN/Creatinine Ratio 9.3 (10.0-20.0); Glucose 84 mg/dL (74-106)
[2025-03-01 07:30] LABS: Blood Urea Nitrogen 5 mg/dL (9-23); Potassium 3.5 mmol/L (3.5-5.1)
--- NOTE | 2025-03-01 14:06 | ECG ---
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
--- NOTE | 2025-03-01 14:06 | ECG ---
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
--- NOTE | 2025-03-01 14:12 | DVHPN2 ---
Subjective Continues to complain of diplopia Reviewed: Care Plan, H&P, Labs, Medications, Previous Orders, Radiology Changes from previous H/P or p: No Changes Objective Vitals Vital Signs Date Time Temp Pulse Resp B/P (MAP) Pulse Ox O2 Delivery O2 Flow Rate FiO2 03/01/25 13:27 98.0 74 17 97/56 (70) 97 98.0 02/28/25 20:00 Nasal Cannula* 2 28 Intake/Output Intake and Output 03/01/25 07:00 Intake Total 1020 ml Output Total 2050 ml Balance -1030 ml Intake Oral 970 ml IV Total 50 ml Output Urine Total 2050 ml General Appearance: Alert, Oriented X3, Cooperative, No acute distress, Other (Morbidly obese) HEENT: Atraumatic Lungs: Clear to auscultation, Normal air movement Cardiovascular: Regular rate, Normal S1, Normal S2, No murmurs Abdomen: Normal bowel sounds, Soft, No tenderness Extremities: No edema Neuro: Normal speech, Cranial nerves 3-12 NL (Unable to confirm if the patient is having diplopia or not on exam) Psych/Mental Status: Mental status NL, Mood NL Medications Current Medications Medications Dose Ordered Sig/Feng Route Start Time Stop Time Status Last Admin Dose Admin Docusate Sodium 100 mg BIDPRN PRN PO 02/26/25 09:45 Enoxaparin Sodium 40 mg DAILY SC 02/26/25 10:00 03/01/25 10:55 40 MG Acetaminophen 650 mg Q6HP PRN PO 02/26/25 09:45 02/26/25 11:34 650 MG Aspirin 81 mg DAILY PO 02/27/25 11:10 03/01/25 09:01 81 MG Duloxetine HCl 30 mg DAILY PO 02/27/25 10:00 Hold Lisinopril 10 mg DAILY PO 02/27/25 10:00 03/01/25 09:00 10 MG Metoprolol Succinate 25 mg DAILY PO 02/26/25 11:29 03/01/25 09:00 25 MG Diagnostic Test (Pha) 1 strip ACHS 02/26/25 11:30 03/01/25 10:55 1 STRIP Insulin Human Regular HS SC 02/26/25 22:00 02/28/25 21:12 2 UNITS Insulin Human Regular AC SC 02/26/25 11:30 03/01/25 11:07 3 UNITS Dextrose 50 ml UD PRN IV 02/26/25 10:15 Clonazepam 0.5 mg Q12HP PRN PO 02/26/25 15:45 02/28/25 14:13 0.5 MG Insulin Glargine 45 units BID SC 02/26/25 22:00 03/01/25 08:58 45 UNITS Ceftriaxone Sodium 50 ml @ 100 mls/hr DAILY@09 IV 02/27/25 09:00 03/01/25 09:00 100 MLS/HR Atorvastatin Calcium 40 mg HS PO 02/26/25 22:00 02/28/25 20:59 40 MG Nitroglycerin 0.4 mg Q5MINP PRN SL 02/26/25 21:15 02/26/25 23:48 0.4 MG Morphine Sulfate 2 mg Q30M PRN IV 02/26/25 21:15 02/26/25 23:54 2 MG Sodium Chloride 10 ml Q8HR IV 02/26/25 22:00 03/01/25 13:32 10 ML Diphenhydramine HCl 25 mg Q4HP PRN IV 02/26/25 21:20 02/26/25 21:57 25 MG Morphine Sulfate 2 mg Q4HPRN PRN IV 02/27/25 13:15 03/01/25 11:16 2 MG Acetaminophen/ Hydrocodone Bitart 1 tab Q6HP PRN PO 02/27/25 13:15 02/28/25 18:45 1 TAB Metoclopramide HCl 5 mg Q8HPRN PRN IV 02/28/25 13:15 03/01/25 01:19 5 MG Laboratory Results Laboratory Tests 03/01/25 06:07 Chemistry Test 03/01/25 06:07 Calcium Level 8.7 mg/dL (8.7-10.4) Urinalysis Test 02/26/25 09:20 Urine Color Light-yellow (Yellow) Urine Clarity Clear (Clear) Urine pH 5.0 (5.0-9.0) Urine Specific [place] 1.031 (1.001-1.035) Urine Protein Negative (Negative) Urine Ketones Trace (Negative) Urine Blood Negative /uL (Negative) Urine Nitrite 2+ (Negative) H Urine Bilirubin Negative (Negative) Urine Urobilinogen Normal mg/dL (Negative) Urine Leukocyte Esterase Negative /uL (Negative) Urine RBC <1 /hpf (0 - 4) Urine Microscopic WBC 2 /HPF (0-5) Urine Squamous Epithelial Cells Few /hpf (<5) Urine Bacteria Mod /hpf (None Seen) H Urine Glucose 4+ mg/dL (Normal) H Microbiology Microbiology Date/Time Source Procedure Growth Status 02/26/25 22:06 Nose MRSA Screen - Final Complete 02/26/25 09:20 Voided Urine Urine Culture - Final Citrobacter youngae Complete 02/26/25 06:24 Blood Blood Culture - Preliminary NO GROWTH AFTER 72 HOURS OF INCUBATION. Resulted Labs and/or images reviewed: Labs reviewed by me, Image(s) reviewed by me Assessment/Plan Assessment/Plan A 64-year-old female patient; with multiple comorbidities; who presented to the emergency department with altered mental status. #Diplopia; no acute abnormalities on head CT without contrast; no other neurological deficits; to be evaluated by Ophthalmology as outpatient; continue monitoring #Acute metabolic/toxic encephalopathy in the setting of sepsis and hyperglycemia; mental status back to normal; reviewed head CT and drug screen; continue monitoring #Acute hypoxic respiratory failure; unclear etiology; chest x-ray did not show any abnormalities; normal D-dimer; to wean off oxygen as tolerated; continue monitoring #Sepsis with leukocytosis and lactic acidosis due to Gram-negative Rods UTI; pending final urine culture; negative blood cultures; continue IV ceftriaxone; discontinued IV vancomycin; continue monitoring #Unspecified psychotic disorder along with anxiety and depression; no suicide ideation/plan; continue home medications; continue monitoring #Uncontrolled diabetes mellitus with hyperglycemia; hemoglobin A1c of 10%; holding oral home antidiabetic medications; continue long-acting insulin and insulin sliding scale with hypoglycemia protocol; to adjust insulin dosing according to blood glucose monitoring; continue monitoring #Hypertensive heart disease with chronic diastolic heart failure; not in exacerbation; continue antihypertensive medications and adjust according to blood pressure reading; continue monitoring #Chronic pain syndrome; continue pain management as indicated; continue monitoring #Alcohol use disorder; counseled on alcohol use cessation; no episodes of withdrawal; continue monitoring #Metabolic syndrome with dyslipidemia; continue home statin; continue monitoring #On and off chest pain; ACS/CAD ruled out in previous admissions; to continue home aspirin; continue monitoring #Mild normocytic anemia; no signs/symptoms of bleeding; continue monitoring #Morbid obesity; counseled the patient on the importance of adopting healthy lifestyle with diet and exercise in order to lose weight; continue monitoring Possible discharge tomorrow Late Entry. This medical document was created using an electronic medical record system with computerized dictation system. Although this document has been carefully reviewed, there might still be some phonetic and typographical errors. These areas are purely typographical due to imperfections of the software programs, and do not reflect any compromise in the patient's medical care. Plan discussed with: Patient, Other (Nurse) Date of Service: Mar 01, 2025 Billing Provider: AMARA VEGA MD Common Visit Codes: [id number] INP/OBS CARE(HIGH) AMARA VEGA MD Mar 01, 2025 14:12
[2025-03-02 01:00] VITALS: BP 110/66; PULSE 82; RESP 20; TEMP 97.7; O2SAT 99
[2025-03-02 05:00] VITALS: BP 120/70; PULSE 81; RESP 20; TEMP 97.3; O2SAT 96
[2025-03-02 07:28] LABS: Anion Gap 8 (5-15); Carbon Dioxide 27 mmol/L (20-31); Chloride 104 mmol/L (98-107); Potassium 3.7 mmol/L (3.5-5.1); Sodium 139 mmol/L (136-145)
[2025-03-02 07:29] LABS: Calcium 8.8 mg/dL (8.7-10.4)
[2025-03-02 07:34] LABS: BUN/Creatinine Ratio 9.3 (10.0-20.0)
[2025-03-02 07:36] LABS: Blood Urea Nitrogen 5 mg/dL (9-23); Glucose 132 mg/dL (74-106)
[2025-03-02 09:03] VITALS: BP 118/64; PULSE 74; RESP 17; TEMP 98; O2SAT 97
--- NOTE | 2025-03-02 12:05 | DVHDS2 ---
Discharge Summary Date of Admission Feb 26, 2025 at 09:41 Date of Discharge: Mar 02, 2025 Admitting Diagnosis Altered mental status Labs/Diagnostic Data: Laboratory Results Test 03/02/25 10:39 03/02/25 06:04 03/01/25 06:07 02/28/25 05:31 POC Glucose 209 mg/dl (70-106) Sodium Level 139 mmol/L (136-145) Potassium Level 3.7 mmol/L (3.5-5.1) Chloride Level 104 mmol/L (98-107) Carbon Dioxide Level 27 mmol/L (20-31) Anion Gap 8 (5-15) Blood Urea Nitrogen 5 mg/dL (9-23) Creatinine 0.54 mg/dL (0.550-1.02) Glomerular Filtration Rate Calc 102 mL/min (>90) BUN/Creatinine Ratio 9.3 (10.0-20.0) Serum Glucose 132 mg/dL (74-106) Calcium Level 8.8 mg/dL (8.7-10.4) White Blood Count 7.5 10^3/uL (4.4-10.8) Red Blood Count 4.63 10^6/uL (4.0-5.20) Hemoglobin 12.7 g/dL (12.2-16.2) Hematocrit 38.0 % (36.0-46.0) Mean Corpuscular Volume 82.0 fL (80.0-100.0) Mean Corpuscular Hemoglobin 27.3 pg (28.0-32.0) Mean Corpuscular Hemoglobin Concent 33.3 g/dL (32.0-36.0) Red Cell Distribution Width 16.4 % (11.8-14.3) Platelet Count 199 10^3/uL (140-450) Mean Platelet Volume 8.5 fL (6.9-10.8) Neutrophils (%) (Auto) 71.7 % (37.0-80.0) Lymphocytes (%) (Auto) 19.0 % (10.0-50.0) Monocytes (%) (Auto) 7.4 % (0.0-12.0) Eosinophils (%) (Auto) 1.4 % (0.0-7.0) Basophils (%) (Auto) 0.5 % (0.0-2.0) Neutrophils # (Auto) 5.4 10 ^3/uL (1.6-8.6) Lymphocytes # (Auto) 1.4 10 ^3/uL (0.4-5.4) Monocytes # (Auto) 0.6 10 ^3/uL (0-1.3) Eosinophils # (Auto) 0.1 10 ^3/uL (0-0.8) Basophils # (Auto) 0 10 ^3/uL (0-0.2) Nucleated Red Blood Cells 0.0 % D-Dimer, Quantitative 0.34 mg/L FEU (0.0-0.49) Vancomycin Level Trough < 3.0 ug/mL (5-10) Test 02/27/25 12:00 02/27/25 05:07 02/26/25 09:20 02/26/25 06:38 Lactic Acid Level 2.0 mmol/L (0.4-2.0) Total Bilirubin 0.5 mg/dL (0.2-1.0) Aspartate Amino Transferase (AST) 21 U/L (13-40) Alanine Aminotransferase (ALT) 20 U/L (7-40) Alkaline Phosphatase 75 U/L (46-116) Total Protein 6.1 g/dL (5.7-8.2) Albumin 3.7 g/dL (3.2-4.8) Urine Color Light-yellow (Yellow) Urine Clarity Clear (Clear) Urine pH 5.0 (5.0-9.0) Urine Specific [place] 1.031 (1.001-1.035) Urine Protein Negative (Negative) Urine Ketones Trace (Negative) Urine Blood Negative /uL (Negative) Urine Nitrite 2+ (Negative) Urine Bilirubin Negative (Negative) Urine Urobilinogen Normal mg/dL (Negative) Urine Leukocyte Esterase Negative /uL (Negative) Urine RBC <1 /hpf (0 - 4) Urine Microscopic WBC 2 /HPF (0-5) Urine Squamous Epithelial Cells Few /hpf (<5) Urine Bacteria Mod /hpf (None Seen) Urine Glucose 4+ mg/dL (Normal) Urine Opiates Screen Neg (NEGATIVE) Urine Fentanyl Screen Neg (NEGATIVE) Urine Barbiturates Screen Neg (NEGATIVE) Urine Phencyclidine Screen Neg (NEGATIVE) Urine Amphetamines Screen Neg (NEGATIVE) Urine Benzodiazepines Screen Neg (NEGATIVE) Urine Cocaine Screen Neg (NEGATIVE) Urine Cannabinoids Screen Neg (NEGATIVE) Blood Gas Specimen Type Venous Blood Gas Sample Site Vbg - n/a Blood Gas Patient Temperature 37.0 Arterial Blood Date Drawn [id number] Matthew Test N/a Venous Blood pH 7.405 (7.320-7.430) Venous Blood pCO2 at Patient Temp 23.3 mmHg (38.0-54.0) Venous Blood pO2 at Patient Temp 69.0 mmHg (23.0-48.0) Venous Blood HCO3 14.3 mmol/L (22.0-29.0) Venous Blood Base Excess -8.2 mmol/L (-2.0-3.0) Blood Gas Modality Room air FiO2 % 21.0 Test 02/26/25 06:33 Differential Total Cells Counted 100.0 (100) Neutrophils % (Manual) 90 (37.0-80.0) Band Neutrophils % (Manual) 4 Lymphocytes % (Manual) 4 (10.0-50.0) Monocytes % (Manual) 2 (0-12) Eosinophils % (Manual) 0 (0-7) Basophils % (Manual) 0 (0.0-2.0) Metamyelocytes % (manual) 0 Myelocytes % (Manual) 0 Promyelocytes % (Manual) 0 Blast Cells % (Manual) 0 Reactive Lymphocytes 0 Platelet Estimate Adequate Anisocytosis (manual) Slight Hemoglobin A1c 10.0 % A1C (<5.7) Magnesium Level 1.8 mg/dL (1.6-2.6) Beta-Hydroxybutyric Acid 0.238 mmol/L (< 0.4) Other Laboratory Tests 03/02/25 06:04 03/01/25 06:07 Brief Hx & Hospital Course: A 64-year-old female patient; with multiple comorbidities; who presented to the emergency department with altered mental status. Details as below: #Diplopia; no acute abnormalities on head CT without contrast; no other neurological deficits; to be evaluated by Ophthalmology as outpatient; to follow up with the primary care provider within a week or with discharge clinic within a week #Acute metabolic/toxic encephalopathy in the setting of sepsis and hyperglycemia; mental status back to normal; reviewed head CT and drug screen; to follow up with the primary care provider within a week or with discharge clinic within a week #Acute hypoxic respiratory failure; unclear etiology; chest x-ray did not show any abnormalities; normal D-dimer; resolved; satting well on room air; to follow up with the primary care provider within a week or with discharge clinic within a week #Sepsis with leukocytosis and lactic acidosis due to Citrobacter youngae UTI; negative blood cultures; treated with IV ceftriaxone; received IV vancomycin; now asymptomatic so no oral antibiotic upon discharge; to follow up with the primary care provider within a week or with discharge clinic within a week #Unspecified psychotic disorder along with anxiety and depression; no suicide ideation/plan; to resume home medications upon discharge; to follow up with the primary care provider within a week or with discharge clinic within a week #Uncontrolled diabetes mellitus with hyperglycemia; hemoglobin A1c of 10%; to resume home oral antidiabetic medications along with insulin upon discharge; educated the patient regarding increasing insulin dosing based on blood glucose monitoring at home; to follow up with the primary care provider within a week or with discharge clinic within a week #Hypertensive heart disease with chronic diastolic heart failure; not in exacerbation; to resume home antihypertensive medications upon discharge; to follow up with the primary care provider within a week or with discharge clinic within a week #Chronic pain syndrome; to resume home pain medications upon discharge; to follow up with the previous pain management provider upon discharge #Alcohol use disorder; counseled on alcohol use cessation; no episodes of withdrawal; to follow up with the primary care provider within a week or with discharge clinic within a week #Metabolic syndrome with dyslipidemia; to resume home statin upon discharge; to follow up with the primary care provider within a week or with discharge clinic within a week #On and off chest pain; ACS/CAD ruled out in previous admissions; to resume home aspirin upon discharge; to follow up with the primary care provider within a week or with discharge clinic within a week a week #Mild normocytic anemia; no signs/symptoms of bleeding; to follow up with the primary care provider within a week or with discharge clinic within a week #Morbid obesity; counseled the patient on the importance of adopting healthy lifestyle with diet and exercise in order to lose weight; continue monitoring; to follow up with the primary care provider within a week or with discharge clinic within a week Late Entry. This medical document was created using an electronic medical record system with computerized dictation system. Although this document has been carefully reviewed, there might still be some phonetic and typographical errors. These areas are purely typographical due to imperfections of the software programs, and do not reflect any compromise in the patient's medical care. Condition at Discharge: Stable Final Diagnosis/Problems List #Diplopia; no acute abnormalities on head CT without contrast; no other neurological deficits; to be evaluated by Ophthalmology as outpatient #Acute metabolic/toxic encephalopathy; resolved Rest of diagnoses as above Discharge Disposition: Home Discharge Instruct/Medications Diet: Consistent carbohydrate, Cardiac 2g Na,low cholest Activity: No Restrictions, As Tolerated Follow Up/Referral: To follow with Dr. Vega next Saturday in [place] [address] at 8 am or primary care provider within a week Medications: To continue home medications Scheduled Aspirin (Aspirin Low Dose), 81 MG PO DAILY, (Reported) Atorvastatin Calcium (Atorvastatin Calcium), 1 TAB PO HS, (Reported) Clonazepam (KlonoPIN TABLET), 1 TAB PO BID Fluticasone Propionate (Nasal) (Fluticasone Propionate), 50 MCG EACHNOSTRI Q12HR Gabapentin (Gabapentin), 300 MG PO TID Insulin Glargine (Basaglar Kwikpen), 45 UNIT SC BID, (Reported) Insulin Regular (Human) (Novolin R Flexpen), 15 UNIT IJ TID Lisinopril (Lisinopril), 10 MG PO DAILY, (Reported) Mesalamine (Canasa), 400 MG RE BID, (Reported) Mesalamine (Mesalamine Dr), 2 CAP PO BID, (Reported) Metoprolol Succinate (Metoprolol Succinate Er), 1 TAB PO DAILY, (Reported) Omeprazole (Gnp Omeprazole), 20 MG PO DAILY, (Reported) Pitolisant Hydrochloride (Wakix), 2 TAB PO DAILY, (Reported) Semaglutide (Ozempic), 2 MG SC QWEEKLY, (Reported) Scheduled PRN Docusate Sodium (Docusate Sodium), 100 MG PO BIDPRN PRN Lorazepam (Ativan Tablet), 1 TAB PO TID PRN Tramadol HCl (Tramadol HCl), 50 MG PO TID PRN Discontinued Medications Ciprofloxacin Hcl (Cipro), 1 TAB PO BID Ciprofloxacin Hcl (Ciprofloxacin Hcl), 5 TAB PO BID Duloxetine Hcl (Cymbalta), 1 CAP PO DAILY, (Reported) Insulin Glargine (Lantus Solostar), 90 UNITS SC DAILY Lisinopril (Lisinopril), 1 TAB PO DAILY, (Reported) Mesalamine (Mesalamine Dr), 400 MG PO, (Reported) Metoprolol Tartrate (Metoprolol Tartrate), 1 TAB PO BID, (Reported) Metoprolol Tartrate (Metoprolol Tartrate), 25 MG PO DAILY, (Reported) Metoprolol Tartrate (Metoprolol Tartrate), 1 TAB PO BID Ondansetron HCl (Ondansetron), 4 MG PO DAILY PRN for NAUSEA, (Reported) Ondansetron Odt 4MG Tab (Zofran Po), 4 MG PO for NAUSEA OR VOMITING, (Reported) Semaglutide (Ozempic), 2 MG SC, (Reported) Discharge Statement: "Patient was advised to return to the ER or call 911 if any headaches, dizziness, shortness of breath, chest pain, abdominal pain, bleeding, fevers, or worsening of medical condition. Patient was counseled about treatment plan, medications, possible side effects, patientverbalized understanding. All questions were answered to the best of my ability. This discharge took greater then 30 minutes in planning, reviewing documentation, counseling the patient, and discussing with other team members." Date of Service: Mar 02, 2025 Billing Provider: AMARA VEGA MD Common Visit Codes: [id number] DISCH DAY >30min AMARA VEGA MD Mar 02, 2025 12:05
--- NOTE | 2025-03-02 12:05 | DVHPN2 ---
Subjective Continues to complain of diplopia but no other complaints Reviewed: Care Plan, H&P, Labs, Medications, Previous Orders, Radiology Changes from previous H/P or p: No Changes Objective Vitals Vital Signs Date Time Temp Pulse Resp B/P (MAP) Pulse Ox O2 Delivery O2 Flow Rate FiO2 03/02/25 10:28 83 18 126/88 03/02/25 09:03 98.0 97 98.0 03/02/25 08:00 Room Air* 0 21 Intake/Output Intake and Output 03/02/25 07:00 Intake Total 1600 ml Output Total 3300 ml Balance -1700 ml Intake Oral 1600 ml Output Urine Total 3300 ml General Appearance: Alert, Oriented X3, Cooperative, No acute distress, Other (Morbidly obese) HEENT: Atraumatic Lungs: Clear to auscultation, Normal air movement Cardiovascular: Regular rate, Normal S1, Normal S2, No murmurs Abdomen: Normal bowel sounds, Soft, No tenderness Extremities: No edema Neuro: Normal speech, Cranial nerves 3-12 NL (Unable to confirm if the patient is having diplopia or not on exam) Psych/Mental Status: Mental status NL, Mood NL Medications Current Medications Medications Dose Ordered Sig/Feng Route Start Time Stop Time Status Last Admin Dose Admin Docusate Sodium 100 mg BIDPRN PRN PO 02/26/25 09:45 Enoxaparin Sodium 40 mg DAILY SC 02/26/25 10:00 03/01/25 10:55 40 MG Acetaminophen 650 mg Q6HP PRN PO 02/26/25 09:45 02/26/25 11:34 650 MG Aspirin 81 mg DAILY PO 02/27/25 11:10 03/02/25 08:42 81 MG Duloxetine HCl 30 mg DAILY PO 02/27/25 10:00 Hold Lisinopril 10 mg DAILY PO 02/27/25 10:00 03/02/25 08:42 10 MG Metoprolol Succinate 25 mg DAILY PO 02/26/25 11:29 03/02/25 08:41 25 MG Diagnostic Test (Pha) 1 strip ACHS 02/26/25 11:30 03/02/25 10:49 1 STRIP Insulin Human Regular HS SC 02/26/25 22:00 03/01/25 21:10 4 UNITS Insulin Human Regular AC SC 02/26/25 11:30 03/02/25 11:02 6 UNITS Dextrose 50 ml UD PRN IV 02/26/25 10:15 Clonazepam 0.5 mg Q12HP PRN PO 02/26/25 15:45 02/28/25 14:13 0.5 MG Insulin Glargine 45 units BID SC 02/26/25 22:00 03/02/25 08:39 45 UNITS Ceftriaxone Sodium 50 ml @ 100 mls/hr DAILY@09 IV 02/27/25 09:00 03/02/25 08:42 100 MLS/HR Atorvastatin Calcium 40 mg HS PO 02/26/25 22:00 03/01/25 21:00 40 MG Nitroglycerin 0.4 mg Q5MINP PRN SL 02/26/25 21:15 02/26/25 23:48 0.4 MG Morphine Sulfate 2 mg Q30M PRN IV 02/26/25 21:15 02/26/25 23:54 2 MG Sodium Chloride 10 ml Q8HR IV 02/26/25 22:00 03/02/25 06:15 10 ML Diphenhydramine HCl 25 mg Q4HP PRN IV 02/26/25 21:20 02/26/25 21:57 25 MG Morphine Sulfate 2 mg Q4HPRN PRN IV 02/27/25 13:15 03/02/25 10:28 2 MG Acetaminophen/ Hydrocodone Bitart 1 tab Q6HP PRN PO 02/27/25 13:15 02/28/25 18:45 1 TAB Metoclopramide HCl 5 mg Q8HPRN PRN IV 02/28/25 13:15 03/01/25 01:19 5 MG Laboratory Results Laboratory Tests 03/01/25 06:07 03/02/25 06:04 Chemistry Test 03/02/25 06:04 Calcium Level 8.8 mg/dL (8.7-10.4) Urinalysis Test 02/26/25 09:20 Urine Color Light-yellow (Yellow) Urine Clarity Clear (Clear) Urine pH 5.0 (5.0-9.0) Urine Specific [place] 1.031 (1.001-1.035) Urine Protein Negative (Negative) Urine Ketones Trace (Negative) Urine Blood Negative /uL (Negative) Urine Nitrite 2+ (Negative) H Urine Bilirubin Negative (Negative) Urine Urobilinogen Normal mg/dL (Negative) Urine Leukocyte Esterase Negative /uL (Negative) Urine RBC <1 /hpf (0 - 4) Urine Microscopic WBC 2 /HPF (0-5) Urine Squamous Epithelial Cells Few /hpf (<5) Urine Bacteria Mod /hpf (None Seen) H Urine Glucose 4+ mg/dL (Normal) H Microbiology Microbiology Date/Time Source Procedure Growth Status 02/26/25 22:06 Nose MRSA Screen - Final Complete 02/26/25 09:20 Voided Urine Urine Culture - Final Citrobacter youngae Complete 02/26/25 06:24 Blood Blood Culture - Preliminary NO GROWTH AFTER 72 HOURS OF INCUBATION. Resulted Labs and/or images reviewed: Labs reviewed by me, Image(s) reviewed by me Assessment/Plan Assessment/Plan A 64-year-old female patient; with multiple comorbidities; who presented to the emergency department with altered mental status. #Diplopia; no acute abnormalities on head CT without contrast; no other neurological deficits; to be evaluated by Ophthalmology as outpatient; to follow up with the primary care provider within a week or with discharge clinic within #Acute metabolic/toxic encephalopathy in the setting of sepsis and hyperglycemia; mental status back to normal; reviewed head CT and drug screen; to follow up with the primary care provider within a week or with discharge clinic within #Acute hypoxic respiratory failure; unclear etiology; chest x-ray did not show any abnormalities; normal D-dimer; resolved; satting well on room air; to follow up with the primary care provider within a week or with discharge clinic within #Sepsis with leukocytosis and lactic acidosis due to Citrobacter youngae UTI; negative blood cultures; treated with IV ceftriaxone; received IV vancomycin; now asymptomatic so no oral antibiotic upon discharge; to follow up with the primary care provider within a week or with discharge clinic within #Unspecified psychotic disorder along with anxiety and depression; no suicide ideation/plan; to resume home medications upon discharge; to follow up with the primary care provider within a week or with discharge clinic within #Uncontrolled diabetes mellitus with hyperglycemia; hemoglobin A1c of 10%; to resume home oral antidiabetic medications along with insulin upon discharge; educated the patient regarding increasing insulin dosing based on blood glucose monitoring at home; to follow up with the primary care provider within a week or with discharge clinic within #Hypertensive heart disease with chronic diastolic heart failure; not in exacerbation; to resume home antihypertensive medications upon discharge; to follow up with the primary care provider within a week or with discharge clinic within #Chronic pain syndrome; to resume home pain medications upon discharge; to follow up with the previous pain management provider upon discharge #Alcohol use disorder; counseled on alcohol use cessation; no episodes of withdrawal; to follow up with the primary care provider within a week or with discharge clinic within #Metabolic syndrome with dyslipidemia; to resume home statin upon discharge; to follow up with the primary care provider within a week or with discharge clinic within #On and off chest pain; ACS/CAD ruled out in previous admissions; to continue home aspirin; continue monitoring #Mild normocytic anemia; no signs/symptoms of bleeding; to follow up with the primary care provider within a week or with discharge clinic within #Morbid obesity; counseled the patient on the importance of adopting healthy lifestyle with diet and exercise in order to lose weight; continue monitoring; to follow up with the primary care provider within a week or with discharge clinic within [place]. This medical document was created using an electronic medical record system with computerized dictation system. Although this document has been carefully reviewed, there might still be some phonetic and typographical errors. These areas are purely typographical due to imperfections of the software programs, and do not reflect any compromise in the patient's medical care. Plan discussed with: Patient, Other (Nurse) My Orders Orders - AMARA VEGA MD Procedure Category Date Status Time Discharge DISCHARGE 03/02/25 Verified 12:03 Date of Service: Mar 02, 2025 Billing Provider: AMARA VEGA MD Common Visit Codes: [id number] INP/OBS CARE(MOD) AMARA VEGA MD Mar 02, 2025 12:05
[2025-03-02 12:58] VITALS: BP 118/64; PULSE 74; TEMP 36.7
[2025-03-02 13:26] VITALS: BP 124/67; PULSE 64; RESP 17; TEMP 98.6; O2SAT 94
[2025-03-02 16:47] VITALS: BP 117/55; PULSE 72; RESP 16; TEMP 97.6; O2SAT 97
== END 2025-03-02 17:36 | disposition home or self-care (01) | DRG 871 ==
LOC: EDBD 04:35 → ER 04:43 → OVERFLOW 09:41 → WEST WING 18:17
PROVIDERS: ADMIT Internal Medicine; ATTEND Internal Medicine
DX: A41.59 Other Gram-negative sepsis (principal); G92.8 Other toxic encephalopathy; J96.01 Acute respiratory failure with hypoxia; E87.20 Acidosis, unspecified; N39.0 Urinary tract infection, site not specified; I50.32 Chronic diastolic (congestive) heart failure; Z68.42 Body mass index [BMI] 45.0-49.9, adult; F29 Unspecified psychosis not due to a substance or known physiological condition; E11.65 Type 2 diabetes mellitus with hyperglycemia; F32.A Depression, unspecified; E66.01 Morbid (severe) obesity due to excess calories; D64.9 Anemia, unspecified; E78.5 Hyperlipidemia, unspecified; D72.829 Elevated white blood cell count, unspecified; G43.909 Migraine, unspecified, not intractable, without status migrainosus; I25.10 Atherosclerotic heart disease of native coronary artery without angina pectoris; H53.2 Diplopia; F41.9 Anxiety disorder, unspecified; G89.4 Chronic pain syndrome; E88.810 Metabolic syndrome; B96.89 Other specified bacterial agents as the cause of diseases classified elsewhere; F10.90 Alcohol use, unspecified, uncomplicated; Z90.49 Acquired absence of other specified parts of digestive tract; Z88.2 Allergy status to sulfonamides; Z86.73 Personal history of transient ischemic attack (TIA), and cerebral infarction without residual deficits; Z79.82 Long term (current) use of aspirin; Z79.4 Long term (current) use of insulin; Z79.899 Other long term (current) drug therapy; I11.0 Hypertensive heart disease with heart failure
CPT/HCPCS: 36415; 36600; 70450; 71045; 80048; 80053; 80202; 80307; 81001; 82010; 82805; 82962; 83036; 83605; 83735; 85007; 85025; 85027; 85379; 87040; 87081; 87086; 87088; 87186; 93005; 96360; 96361; 97110; 97116; 97163; 97530; 99291; G0378; J1815; J2405

== ENCOUNTER 2025-03-12 06:28 | Inpatient (IN) | payer MEDICARE, BC, MEDICAID ==
[~2025-03-12] VITALS: Ht 162.6 cm; Wt 123.4 kg
[~2025-03-12 06:28] MED LIST changes: -CIPR-173 PO; -CIPR500T4 PO; -DULO60CA41 PO; +INSU1INJ19 SC; -INSUINJ37 SC; -METO25TA5 PO; +METO25TA93 PO; -ONDA-155 PO; -SEMA2INJ3 SC; -ZOFR4T PO
--- NOTE | 2025-03-12 06:38 | ED.PDOC ---
HPI Comments 64-year-old female presents here with chest discomfort. She states she was sleeping in the chest discomfort woke her up from her sleep at 4:00 a.m.. She states it felt pressure-like associated with nausea. No radiation anywhere. No radiation to her arm or back. She does have a history of frequent chest discomfort off and on for the last month and a half. She was supposed to have an appointment with Dr. Ruby this morning her vacuum technician. She states she has a had all the cardiac test including angiogram done and they all returned negative. However she continues to have this chest discomfort. Currently she states her chest discomfort is 7/10 pressure-like. Associated with current dizziness and lightheadedness at this time. Additionally her blood sugar was noted to be 514 by paramedics. She states she has been out of her fast acting insulin for a proximally 2-1/2 weeks. She states she spoke to her PCP and also another physician and they stated they have taken care of it however she is still unable to get the medication from pharmacy. She states the reason for the discrepancy is that she was taking more than was initially prescribed by her PCP. Her PCP has change the dosing going forward. She denies any recent cough cold runny nose fever or chills. Chief Complaint: Chest Pain Time Seen by MD: 06:40 Primary Care Provider: BRIDGETTE Weathers Notes: Medications, Allergies Allergies: Coded Allergies: Sulfa Drugs (Verified Allergy, Mild, rash, 08/13/24) Sulfa Antibiotics (Unverified Allergy, Unknown, 09/05/24) Indomethacin (Verified Adverse Reaction, Mild, migraine, 08/13/24) Home Meds Active Scripts Clonazepam (KlonoPIN TABLET) 0.5 Mg Tb, 1 TAB PO BID for 15 Days, #30 TAB 1 Refill Prov:MOUNIKA TILLMAN MD 12/07/24 Tramadol HCl (Tramadol HCl) 50 Mg Tab, 50 MG PO TID PRN, #30 TAB Prov:CECILIA BRITO MD 10/07/24 Lorazepam (ATIVAN TABLET) 0.5 Mg Tb, 1 TAB PO TID PRN, #30 TAB Prov:CECILIA BRITO MD 10/07/24 Gabapentin (Gabapentin) 300 Mg Cap, 300 MG PO TID for 30 Days, #90 CAP 3 Refills Prov:SETH TAO DO 08/16/24 Docusate Sodium (Docusate Sodium) 100 Mg Cap, 100 MG PO BIDPRN PRN for 15 Days, #15 CAP Prov:MOUNIKA TILLMAN MD 04/20/24 Fluticasone Propionate (Nasal) (Fluticasone Propionate) 50 Mcg/Act Spr, 50 MCG EACHNOSTRI Q12HR for 30 Days, #2 SPRAY Prov:MOUNIKA TILLMAN MD 04/17/24 Insulin Regular (Human) (Novolin R Flexpen) 100 Unit/Ml Inj, 15 UNIT IJ TID for 28 Days, #100 INJ 15 units before meals, cheack blood sugar 2 hours after meal and add sliding scale Prov:MOUNIKA TILLMAN MD 04/17/24 Reported Medications Insulin Glargine (Basaglar Kwikpen) 100 Unit/Ml Inj, 45 UNIT SC BID, INJ 02/26/25 Metoprolol Succinate (Metoprolol Succinate Er) 25 Mg Tab, 1 TAB PO DAILY 02/26/25 Atorvastatin Calcium (ATORVASTATIN CALCIUM) 40 Mg Tab, 1 TAB PO HS 01/27/25 Omeprazole (Gnp Omeprazole) 20 Mg Tab, 20 MG PO DAILY, TAB 12/04/24 Aspirin (Aspirin Low Dose) 81 Mg Chw, 81 MG PO DAILY, TAB.CHEW 12/04/24 Semaglutide (Ozempic) 4 Mg/3 Ml Inj, 2 MG SC QWEEKLY, INJ 09/05/24 Mesalamine (Mesalamine Dr) 400 Mg Cap, 2 CAP PO BID 09/05/24 Mesalamine (Canasa) 1,000 Mg Sup, 400 MG RE BID, SUPP 08/28/24 Pitolisant Hydrochloride (Wakix) 17.8 Mg Tab, 2 TAB PO DAILY for NARCOLEPSY for 90 Days, #180 11/02/21 Lisinopril (Lisinopril) 10 Mg Tab, 10 MG PO DAILY for 30 Days, MG 07/26/16 Information Source: Patient, Emergency Med Personnel Mode of Arrival: EMS Severity: Moderate Duration: Since onset Prehospital treatment: Treatment (Zofran) Location: Substernal Radiation: No Radiation Quality: Pressure Onset: At Rest Cardiac Risk Factors: Hyperlipidemia, HTN, Diabetes PE Risk Factors: None History of: Similar pain in past Modifying Factors: Nothing Associated Signs and Symptoms: N/V, Other (lightheadedness) Past Medical History PAST MEDICAL HISTORY: CAD, CVA, DM, High Lipids, HTN, CO Surgical History: Appendectomy, BTL, Cholecystectomy, , Hernia Repair CHOIR SINGER History: Denies all CHOIR SINGER Hx Family History Family History: Family hx of heart rimma Social History Smoker: Non-Smoker Alcohol: Rarely Drugs: Denies Drug Use Lives In: Home Constitutional: denies: chills, diaphoresis, fatigue, fever, malaise, sweats, weakness, others EENTM: denies: blurred vision, double vision, ear bleeding, ear discharge, ear drainage, ear pain, ear ringing, eye pain, eye redness, hearing loss, mouth pain, mouth swelling, nasal discharge, nose bleeding, nose congestion, nose pain, photophobia, tearing, throat pain, throat swelling, voice changes, others Respiratory: denies: cough, hemoptysis, orthopnea, SOB at rest, shortness of breath, SOB with excertion, stridor, wheezing, others Cardiovascular: reports: chest pain; denies: dizzy spells, diaphoresis, Dyspnea on exertion, edema, irregular heart beat, left arm pain, lightheadedness, palpitations, PND, syncope, others Gastrointestinal: reports: nausea; denies: abdomen distended, abdominal pain, blood streaked bowels, constipated, diarrhea, dysphagia, difficulty swallowing, hematemesis, melena, poor appetite, poor fluid intake, rectal bleeding, rectal pain, vomiting, others Genitourinary: denies: abnormal vagina bleeding, burning, dyspareunia, dysuria, flank pain, frequency, hematuria, incontinence, pain, , vagina discharge, urgency, others Neurological: reports: others (lightheadedness); denies: dizziness, fainting, headache, left sided numbness, left sided weakness, numbness, paresthesia, pre- existing deficit, right sided numbness, right sided weakness, seizure, speech problems, tingling, tremors, weakness Musculoskeletal: denies: back pain, gout, joint pain, joint swelling, muscle pain, muscle stiffness, neck pain, others Integumetry: denies: bruises, change in color, change in hair/nails, dryness, laceration, lesions, lumps, rash, wounds, others Allergic/Immunocompromised: denies: Difficulty Healing, Frequent Infections, Hives, Itching, others Hematologic/Lymphatic: denies: anemia, blood clots, easy bleeding, easy bruising, swollen glands, others Endocrine: reports: others (hyperglycemia, BG 514); denies: excessive hunger, excessive sweating, excessive thirst, excessive urination, flushing, intolerance to cold, intolerance to heat, unexplained weight gain, unexplained weight loss Psychiatric: denies: anxiety, bipolar disorder, depression, hopeless, panic d isorder, schizophrenia, sleepless, suicidal, others All Other Systems: Reviewed and Negative Physical Exam General Appearance: No Apparent Distress, Obese HEENT: Normal ENT Inspection, Pharynx Normal, TMs Normal Neck: Full Range of Motion, Non-Tender, Normal, Normal Inspection Respiratory: Chest Non-Tender, Lungs Clear, No Accessory Muscle Use, No Respiratory Distress, Normal Breath Sounds Cardiovascular: No Edema, No JVD, No Murmur, No Gallop, Normal Peripheral Pulses, Regular Rate/Rhythm Breast Exam: Deferred Gastrointestinal: No Organomegaly, Non Tender, No Pulsatile Mass, Normal Bowel Sounds, Soft Genitalia: Deferred Pelvic: Deferred Rectal: Deferred Extremities: No calf tenderness, Normal capillary refill, Normal inspection, Normal range of motion, Non-tender, No pedal edema Musculoskeletal : Apperance: Normal Neurologic: Alert, No Motor Deficits, Normal Affect, Normal Mood, No Sensory Deficits Cerebellar Function: Normal Reflexes: Normal Skin: Dry, Normal Color, Warm Lymphatic: No Adenopathy EKG EKG #1: Comments Sinus rhythm rate of 98, left anterior fascicular block, no significant ST changes EKG #2: Comments Normal sinus rhythm rate of 91, multiple PVCs, no significant ST changes. Was a procedure done? Was a procedure done?: No CP Differential Dx Differential Diagnosis: Other Differential Diagnosis: Other Differential Diagnosis: Myocardial Infarction, Pericarditis, Pneumonia, Pneumothorax, Pulmonary Embolus Comment Acute coronary syndrome, hyperglycemia, DKA, hyperosmolar nonketotic syndrome, dehydration, electrolyte abnormality, PE, pneumonia, fluid overload X-Ray, Labs, Meds, VS Vital Signs Date Time Temp Pulse Resp B/P (MAP) Pulse Ox O2 Delivery O2 Flow Rate FiO2 03/12/25 06:37 98 03/12/25 06:28 98.4 94 18 119/87 94 98.4 Lab Test 03/12/25 06:55 Range/Units White Blood Count 6.3 4.4-10.8 10^3/uL Red Blood Count 4.74 4.0-5.20 10^6/uL Hemoglobin 12.8 12.2-16.2 g/dL Hematocrit 39.1 36.0-46.0 % Mean Corpuscular Volume 82.5 80.0-100.0 fL Mean Corpuscular Hemoglobin 26.9 L 28.0-32.0 pg Mean Corpuscular Hemoglobin Concent 32.6 32.0-36.0 g/dL Red Cell Distribution Width 16.1 H 11.8-14.3 % Platelet Count 193 140-450 10^3/uL Mean Platelet Volume 8.7 6.9-10.8 fL Neutrophils (%) (Auto) 76.3 37.0-80.0 % Lymphocytes (%) (Auto) 15.5 10.0-50.0 % Monocytes (%) (Auto) 6.2 0.0-12.0 % Eosinophils (%) (Auto) 1.2 0.0-7.0 % Basophils (%) (Auto) 0.8 0.0-2.0 % Neutrophils # (Auto) 4.8 1.6-8.6 10 ^3/uL Lymphocytes # (Auto) 1.0 0.4-5.4 10 ^3/uL Monocytes # (Auto) 0.4 0-1.3 10 ^3/uL Eosinophils # (Auto) 0.1 0-0.8 10 ^3/uL Basophils # (Auto) 0.1 0-0.2 10 ^3/uL Nucleated Red Blood Cells 0.1 % Sodium Level 138 136-145 mmol/L Potassium Level 3.9 3.5-5.1 mmol/L Chloride Level 101 98-107 mmol/L Carbon Dioxide Level 22 20-31 mmol/L Anion Gap 15 5-15 Blood Urea Nitrogen 9 9-23 mg/dL Creatinine 0.85 0.550-1.02 mg/dL Glomerular Filtration Rate Calc 76 >90 mL/min BUN/Creatinine Ratio 10.6 10.0-20.0 Serum Glucose 517 *H 74-106 mg/dL Calcium Level 8.8 8.7-10.4 mg/dL Total Bilirubin 0.3 0.2-1.0 mg/dL Aspartate Amino Transferase (AST) 15 13-40 U/L Alanine Aminotransferase (ALT) 22 7-40 U/L Alkaline Phosphatase 109 46-116 U/L Troponin I High Sensitivity < 3 L </=34 ng/L Total Protein 6.7 5.7-8.2 g/dL Albumin 4.0 3.2-4.8 g/dL Beta-Hydroxybutyric Acid 0.207 < 0.4 mmol/L Thyroid Stimulating Hormone (TSH) Pending Free Thyroxine (T4) Calculated Pending Current Medications Medications (Trade) Dose Ordered Sig/Feng Route Start Time Stop Time Status Last Admin Sodium Chloride 1,000 ml @ 1,000 mls/hr Q1H ONCE IV 03/12/25 07:00 03/12/25 07:59 DC 03/12/25 08:00 Aspirin 325 mg ONCE ONCE PO 03/12/25 07:15 03/12/25 07:16 DC 03/12/25 08:00 Ondansetron HCl (Zofran) 4 mg ONCE ONCE IV 03/12/25 07:15 03/12/25 07:16 DC 03/12/25 08:00 [place] [address] Ph: [phone] DIAGNOSTIC IMAGING Diagnostic Imaging Report : [id number] Signed PATIENT: ELVIS CONCEPCION ACCT: [id number] UNIT: [id number] : 1960 LOC: ER ROOM / BED: / AGE / SEX: 64 / F ADM STATUS: REG ER SERVICE [id number] ORDERING PHYSICIAN: RYLEY MORIN MD PROCEDURE(s): CXR2 - CHEST TWO VIEWS ROUTINE REASON: Chest pain ORDER NUMBER(s): [id number], ACCESSION NUMBER(s): [id number] CHEST RADIOGRAPH Indication: Chest pain Technique: Frontal and lateral view of the chest was obtained Comparison: XY CHEST PORTABLE on DOS: 02/26/25, XY CHEST XRAY 1 VIEW on DOS: 01/27/25, XR CHEST 1 VIEW on DOS: 01/15/25, XY CHEST XRAY 1 VIEW on DOS: 01/03/25, XY CHEST PORTABLE on DOS: 12/03/24 FINDINGS: Lines and Tubes: Thoracic stimulator device in-situ. Lungs: Clear Pleura: No effusion. No pneumothorax. Cardiomediastinal contours: Unremarkable Bones: Unremarkable IMPRESSION: No evidence of acute disease. ATED BY: ZE ADKINS MD DICTATED DATE/TIME: 03/12/25738 SIGNED BY: ZE ADKINS MD SIGNED DATE/TIME: 03/12/25738 CC: 64-year-old female with a known history of diabetes hypertension hypercholesterolemia obesity here with chest pressure like pain that began at 4:00 a.m. this morning. She states she has been having on and off chest discomfort for last month and a half. She was supposed to have an appointment with a vacuum technician this morning. She states currently the pain is 7/10. Associated with nausea. She states she did get Zofran and feels by paramedics however continues to be nauseous. Additionally she was found to have a blood sugar of 514 and field. She states she has been out of her fast acting insulin for proximally 2 and half weeks. At this time considered that she may be in DKA or hyperosmolar nonketotic syndrome also. I have ordered a CBC, CMP, beta hydroxybutyrate, troponin, EKG, chest x-ray and a L of IV fluids to help with the hyperglycemia. Additionally I have given the patient nitroglycerin and aspirin in the ER. CBC CMP beta hydroxybutyrate troponin have returned. All are largely within normal limits except for her blood sugar which is 517. Patient is not in DKA. 1st set troponin is negative. She has no anion gap. EKG x2 demonstrates no significant ST changes. Chest x-ray with no evidence of pathology. At this time admitting team has been consulted for admission for both her chest discomfort, concern for angina as well as her hyperglycemia. Patient has been given insulin here in the ER by myself. I have also given the patient addition al morphine and Zofran for chest pain control. Time of 1ST Reevaluation: 07:15 Reevaluation 1ST: Unchanged Patient Education/Counseling: Diagnosis, Treatment Family Education/Counseling: No Family Present SEPSIS Sepsis Screen Physician Orders Electrocardigram (03/12/25 06:41) Electrocardigram (03/12/25 07:41) Electrocardigram (03/12/25 09:41) Chest Two Views Routine (03/12/25 06:54) Troponin-I Hs (03/12/25 07:54) Troponin-I Hs (03/12/25 09:54) Vital Signs Date Time Temp Pulse Resp B/P (MAP) Pulse Ox O2 Delivery O2 Flow Rate FiO2 03/12/25 06:37 98 03/12/25 06:28 98.4 94 18 119/87 94 98.4 Laboratory Tests Test 03/12/25 06:55 White Blood Count 6.3 10^3/uL (4.4-10.8) Medications Medications Dose Ordered Sig/Feng Route Start Time Stop Time Status Last Admin Dose Admin Aspirin 325 mg ONCE ONCE PO 03/12/25 07:15 03/12/25 07:16 DC 03/12/25 08:00 Ondansetron HCl 4 mg ONCE ONCE IV 03/12/25 07:15 03/12/25 07:16 DC 03/12/25 08:00 Sodium Chloride 1,000 ml @ 1,000 mls/hr Q1H ONCE IV 03/12/25 07:00 03/12/25 07:59 DC 03/12/25 08:00 Departure 1 Departure Time of Disposition: 07:08 Impression: Primary Impression: Chest pain Qualified Codes: R07.9 - Chest pain, unspecified Additional Impression: TYPE 2 DIABETES MELLITUS WITH HYPERGLYCEMIA Disposition: ADMITTED INPATIENT Condition: Fair Critical Care Note Critical Care Time?: No Stability Stability form required: No Heart Score Heart Score: Heart Score Response (Comments) Value History Highly Suspicious 2 EKG Repolarization Disturb 1 Age >65 2 Risk Factors >3 or Hx ASHD 2 Troponin Normal limit 0 Total 7 I personally scribed for RYLEY MORIN MD ([email or web address]) on 03/12/25 at 06:38. Electronically submitted by Nhi Perez ([email or web address]). I personally scribed for RYLEY MORIN MD ([email or web address]) on 03/12/25 at 07:18. Electronically submitted by Nhi Perez ([email or web address]). I personally scribed for RYLEY MORIN MD ([email or web address]) on 03/12/25 at 07:53. Electronically submitted by Nhi Perez ([email or web address]). RYLEY MORIN MD Mar 12, 2025 06:38
[2025-03-12 07:22] LABS: Hemoglobin 12.8 g/dL (12.2-16.2); Nucleated Red Blood Cells % 0.1 %
[2025-03-12 07:24] LABS: Hematocrit 39.1 % (36.0-46.0); Mean Corpuscular Hemoglobin 26.9 pg (28.0-32.0); Mean Corpuscular Volume 82.5 fL (80.0-100.0)
[2025-03-12] MEDS ORDERED: MORPHINE SULFATE 4 MG/ML SYR/VIAL IV PRN (07:30)
[2025-03-12] MEDS ORDERED: DEXTROSE (50%) 50ML SYRG IV PRN (07:30)
[2025-03-12] MEDS ORDERED: NITROGLYCERIN 0.4 MG SL TAB SL PRN ×2 (07:30)
[2025-03-12] MEDS ORDERED: ACETAMINOPHEN 325 MG TAB PO PRN (07:30)
--- NOTE | 2025-03-12 07:31 | DVHHP2 ---
History of Present Illness Reason for Visit: Chest pain History of Present Illness Dara Anthony is a 64-year-old female with past medical history of CAD, CVA with no deficits, diabetes, hyperlipidemia, hypertension, [place], appendectomy, bilateral tubal ligation, cholecystectomy, , hernia repair, lumbar laminectomy, neurostimulator x2, neck fusion, left shoulder surgery, and right ankle surgery who presents to the ED with chest pain that started this a.m. at 4. She reports that the pain woke her up from her sleep also endorses that the pain is 7/10 feels like someone is sitting on her chest and constant. Patient states that there are no triggering or alleviating factors. She also reports that she was here last week and does not have a PCP. She is attempting to find a PCP. She also states that her blood sugar is elevated and does not have any insulin. She reports that is due to her insurance not covering it. She denies recent travels, recent trauma or injury, recent sick contacts, recent ingestion of spoiled food, shortness of breath, fever, chills, lightheadedness, weakness, dizziness, abdominal pain, nausea, vomiting, diarrhea, or urinary symptoms. Patient reports that she lives at home alone and does use a front wheel walker or an electric scooter when she goes out. 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 Endocrine: Diabetes Past Surgical History: Appendectomy, Cholecystectomy, , Hernia Repair, Other (Lumbar laminectomy, neuro stimulator x2, neck fusion, left shoulder surgery, and right ankle surgery), Tubal Ligation Family History: DM, Other (Mom with diabetes and from [place]) Smoke: No ALCOHOL: none Drugs: None Lives: Alone Domestic Violence: Neg Review of Systems Cardiovascular: Chest Pain Allergies: Coded Allergies: Sulfa Drugs (Verified Allergy, Mild, rash, 08/13/24) Sulfa Antibiotics (Unverified Allergy, Unknown, 09/05/24) Indomethacin (Verified Adverse Reaction, Mild, migraine, 08/13/24) Exam Vital Signs Vital Signs Date Time Temp Pulse Resp B/P (MAP) Pulse Ox O2 Delivery O2 Flow Rate FiO2 03/12/25 06:37 98 03/12/25 06:28 98.4 18 119/87 94 98.4 General Appearance: Alert, Oriented X3, Cooperative, No acute distress HEENT: Atraumatic, PERRLA, EOMI, Mucous membr. moist/pink Respiratory: Normal air movement Cardiovascular: Regular rate, Normal S1, Normal S2, No murmurs Abdominal: Normal bowel sounds, Soft Extremities: Normal pulses Skin: No significant lesion Neuro: Normal speech, Strength at 5/5 X4 ext, Normal tone, Sensation intact Psych/Mental Status: Mental status NL, Mood NL Labs/Xrays Labs Test 03/12/25 06:55 Range/Units White Blood Count 6.3 4.4-10.8 10^3/uL Red Blood Count 4.74 4.0-5.20 10^6/uL Hemoglobin 12.8 12.2-16.2 g/dL Hematocrit 39.1 36.0-46.0 % Mean Corpuscular Volume 82.5 80.0-100.0 fL Mean Corpuscular Hemoglobin 26.9 L 28.0-32.0 pg Mean Corpuscular Hemoglobin Concent 32.6 32.0-36.0 g/dL Red Cell Distribution Width 16.1 H 11.8-14.3 % Platelet Count 193 140-450 10^3/uL Mean Platelet Volume 8.7 6.9-10.8 fL Neutrophils (%) (Auto) 76.3 37.0-80.0 % Lymphocytes (%) (Auto) 15.5 10.0-50.0 % Monocytes (%) (Auto) 6.2 0.0-12.0 % Eosinophils (%) (Auto) 1.2 0.0-7.0 % Basophils (%) (Auto) 0.8 0.0-2.0 % Neutrophils # (Auto) 4.8 1.6-8.6 10 ^3/uL Lymphocytes # (Auto) 1.0 0.4-5.4 10 ^3/uL Monocytes # (Auto) 0.4 0-1.3 10 ^3/uL Eosinophils # (Auto) 0.1 0-0.8 10 ^3/uL Basophils # (Auto) 0.1 0-0.2 10 ^3/uL Nucleated Red Blood Cells 0.1 % CHEST RADIOGRAPH Indication: Chest pain Technique: Frontal and lateral view of the chest was obtained Comparison: XY CHEST PORTABLE on DOS: 02/26/25, XY CHEST XRAY 1 VIEW on DOS: 01/27/25, XR CHEST 1 VIEW on DOS: 01/15/25, XY CHEST XRAY 1 VIEW on DOS: 01/03/25, XY CHEST PORTABLE on DOS: 12/03/24 FINDINGS: Lines and Tubes: Thoracic stimulator device in-situ. Lungs: Clear Pleura: No effusion. No pneumothorax. Cardiomediastinal contours: Unremarkable Bones: Unremarkable IMPRESSION: No evidence of acute disease. SEPSIS Sepsis Screen Date sepsis recognized/suspect: Mar 12, 2025 Time Sepsis recognized/suspect: 627 Recent Procedure: No On Antibiotic Therapy: No Respiratory Rate >20: No Heart Rate >90: No Temp<36 C (96.8 F) or >38.3 C: No SBP <90 or MAP <65 mmHG: No New Acute Mental Status Change: No Is the patient on CPAP, BIPAP,: No Physician Orders Electrocardigram (03/12/25 06:41) Electrocardigram (03/12/25 07:41) Electrocardigram (03/12/25 09:41) Comprehensive Metabolic Panel (03/12/25 06:54) Beta-Hydroxybutyrate (03/12/25 06:54) Troponin-I Hs (03/12/25 06:54) Chest Two Views Routine (03/12/25 06:54) Troponin-I Hs (03/12/25 07:54) Troponin-I Hs (03/12/25 09:54) Sodium Chloride 0.9% (03/12/25 07:00) Vital Signs Date Time Temp Pulse Resp B/P (MAP) Pulse Ox O2 Delivery O2 Flow Rate FiO2 03/12/25 06:37 98 03/12/25 06:28 98.4 94 18 119/87 94 98.4 Laboratory Tests Test 03/12/25 06:55 White Blood Count 6.3 10^3/uL (4.4-10.8) Assessment/Plan Assessment/Plan Assessment Chest pain rule out ACS Uncontrolled diabetes Obesity History of CAD History of CVA History of hyperlipidemia History of hypertension History of [place] History of appendectomy History of bilateral tubal ligation History of cholecystectomy History of History of hernia repair History of lumbar laminectomy History of neurostimulator x2 History of neck fusion History of left shoulder surgery History of right ankle surgery Plan Admit to tele Antiemetics Pain management ACS workup Aspirin + statin Last echo on 01/29/2025 EF 55% Hemoglobin A1c ISS and Accu-Cheks Lantus Diet Home medications reconciled DVT prophylaxis-SCDs PUD prophylaxis-not indicated no history of GERD or GI bleed Discussed plan of care with patient and nurse Counseled patient on lifestyle modifications, diet, and exercise [id number] Preventive counseling healthy eating habits, physical activity, and regular checkups Plan discussed with: Patient Date of Service: Mar 12, 2025 Billing Provider: BENTLEY BRISCOE Common Visit Codes: [id number] INP/OBS CARE (HIGH) Secondary Visit Codes: [id number] COUNSELING IND BENTLEY BRISCOE Mar 12, 2025 07:31
[2025-03-12 07:34] LABS: Alanine Aminotransferase 22 U/L (7-40); Albumin 4.0 g/dL (3.2-4.8); Alkaline Phosphatase 109 U/L (46-116); Anion Gap 15 (5-15); BUN/Creatinine Ratio 10.6 (10.0-20.0); Bilirubin, Total 0.3 mg/dL (0.2-1.0); Calcium 8.8 mg/dL (8.7-10.4); Carbon Dioxide 22 mmol/L (20-31); Chloride 101 mmol/L (98-107); Potassium 3.9 mmol/L (3.5-5.1); Sodium 138 mmol/L (136-145); Total Protein 6.7 g/dL (5.7-8.2)
[2025-03-12 07:36] LABS: Blood Urea Nitrogen 9 mg/dL (9-23)
[2025-03-12 07:37] LABS: Glucose 517 mg/dL (74-106)
--- NOTE | 2025-03-12 07:42 | DVH ---
CHEST RADIOGRAPH Indication: Chest pain Technique: Frontal and lateral view of the chest was obtained Comparison: XY CHEST PORTABLE on DOS: 02/26/25, XY CHEST XRAY 1 VIEW on DOS: 01/27/25, XR CHEST 1 VIEW on DOS: 01/15/25, XY CHEST XRAY 1 VIEW on DOS: 01/03/25, XY CHEST PORTABLE on DOS: 12/03/24 FINDINGS: Lines and Tubes: Thoracic stimulator device in-situ. Lungs: Clear Pleura: No effusion. No pneumothorax. Cardiomediastinal contours: Unremarkable Bones: Unremarkable IMPRESSION: No evidence of acute disease.
[2025-03-12 08:00] VITALS: PULSE 90; RESP 21; O2SAT 94
[2025-03-12] MEDS: ONDANSETRON HCL 4 MG/2 ML VIAL IV ONE (08:00)
[2025-03-12] MEDS: SODIUM CHLORIDE 0.9% 1,000 ML IV ONE (08:00)
[2025-03-12 09:33] LABS: Amphetamine Screen, Urine Neg (NEGATIVE); Barbiturate Scree,Urine Neg (NEGATIVE); Benzodiazephine Screen, Urine Neg (NEGATIVE); Cannabinoid Screen, Urine Neg (NEGATIVE); Cocaine Screen, Urine Neg (NEGATIVE); Opiate Scree,Urine Neg (NEGATIVE); Phencyclidine Screen, Urine Neg (NEGATIVE)
[2025-03-12 09:51] LABS: Urine Budding Yeast OCCASIONAL /hpf (None Seen); Urine Protein, UAD Negative (Negative)
--- NOTE | 2025-03-12 09:55 | ECG ---
[facility] Test Date: 2025-03-12 Test Time: 07:22:06 Pat Name: ELVIS CONCEPCION Department: Room: 0249T Gender: F Chief Informatics Officer: SHEILA : 1960 Requested By: RYLEY MORIN Order Number: [id number] Reading MD: Alonzo Aceves Measurements Intervals [place] Rate: 91 P: 22 [place]: 162 QRS: -42 QRSD: 83 T: 38 QT: 355 QTc: 437 Interpretive Statements Sinus rhythm Multiple ventricular premature complexes Left axis deviation Electronically Signed On 03-15-2025 18:42:02 PDT by Alonzo Aceves Please click the below link to view image of tracing.
--- NOTE | 2025-03-12 09:56 | ECG ---
[facility] Test Date: 2025-03-12 Test Time: 09:32:18 Pat Name: ELVIS CONCEPCION Department: Room: 0249T Gender: F Investigator Claims: SHEILA : 1960 Requested By: RYLEY MORIN Order Number: [id number] Reading MD: Alonzo Aceves Measurements Intervals [place] Rate: 85 P: 27 [place]: 175 QRS: -32 QRSD: 83 T: 32 QT: 360 QTc: 428 Interpretive Statements Sinus rhythm Ventricular premature complex Left axis deviation Electronically Signed On 03-15-2025 18:42:20 PDT by Alonzo Aceves Please click the below link to view image of tracing.
[2025-03-12] MEDS: METOPROLOL SUCCINATE XL 50 MG TAB PO SCH (10:26)
[2025-03-12] MEDS: LISINOPRIL 5 MG TAB PO SCH (10:27)
[2025-03-12] MEDS: INSULIN LANTUS (GLARGINE) 1 /0.01ml (100units/ml) SC SCH (10:27)
[2025-03-12] MEDS: NITROGLYCERIN 0.4 MG SL TAB SL ONE (10:29)
[2025-03-12] MEDS: MORPHINE SULFATE 4 MG/ML SYR/VIAL IV ONE (10:29)
[2025-03-12 11:00] VITALS: PULSE 80; RESP 16; O2SAT 94
[2025-03-12] MEDS: ACCU-CHEK COMFORT CURVE STRIP VI SCH (11:46)
[2025-03-12] MEDS: InsuLIN REG 1unit/0.01ml Soln (100units/ml) SC SCH (11:54)
[2025-03-12] MEDS: MORPHINE SULFATE INJ 2 MG/ml SYRG IV PRN (14:06)
[2025-03-12] MEDS: GABAPENTIN 300 MG CAP PO SCH (14:06)
[2025-03-12] MEDS ORDERED: INSU100I70 SC (17:59)
[2025-03-12 18:01] VITALS: BP 97/68; PULSE 81; RESP 17; TEMP 98.3; O2SAT 94
[2025-03-12] MEDS: HYDROcodone-ACET 5/325MG TAB PO PRN (18:32)
[2025-03-12 20:00] VITALS: PULSE 80; PULSE 90; RESP 20; O2SAT 96
[2025-03-12 21:00] VITALS: BP 101/71; PULSE 86; RESP 18; TEMP 98.1; O2SAT 94
[2025-03-12] MEDS: MESALAMINE 400mg Delayed Release Cap PO SCH (21:21)
[2025-03-12] MEDS: ATORVASTATIN 20 MG TAB PO SCH (21:21)
[2025-03-12] MEDS: LORazepam 0.5 MG TAB PO PRN (21:57)
[2025-03-13] VITALS (8 sets, daily range): BP systolic 91–126; BP diastolic 48–66; PULSE 76–97; RESP 18–20; TEMP 98–98.5; O2SAT 92–98
[2025-03-13 07:01] LABS: Chloride 103 mmol/L (98-107); Potassium 4.3 mmol/L (3.5-5.1); Sodium 137 mmol/L (136-145)
[2025-03-13 07:02] LABS: Anion Gap 12 (5-15); Carbon Dioxide 22 mmol/L (20-31)
[2025-03-13 07:08] LABS: BUN/Creatinine Ratio 19.0 (10.0-20.0); Blood Urea Nitrogen 11 mg/dL (9-23)
[2025-03-13 07:09] LABS: Cholesterol 93 mg/dL (< 200)
[2025-03-13 07:15] LABS: Calcium 8.0 mg/dL (8.7-10.4); Glucose 218 mg/dL (74-106); HDL Cholesterol 29 mg/dL (40-59); Magnesium 1.6 mg/dL (1.6-2.6); Triglycerides 220 mg/dL (< 150)
[2025-03-13] MEDS: PANTOPRAZOLE 40 MG TAB PO SCH (09:41)
[2025-03-13] MEDS ORDERED: DEXTROSE (50%) 50ML SYRG IV PRN (15:15)
--- NOTE | 2025-03-13 15:49 | DVHPN2 ---
Subjective Patient continues to report having chest pain. Reviewed: Care Plan, H&P, Labs, Medications Changes from previous H/P or p: No Changes General: Per HPI Cardiovascular: Chest Pain Objective Vitals Vital Signs Date Time Temp Pulse Resp B/P (MAP) Pulse Ox O2 Delivery O2 Flow Rate FiO2 03/13/25 13:00 98.2 76 18 105/65 (78) 97 98.2 03/13/25 08:00 Room Air* 0 21 Intake/Output Intake and Output 03/13/25 07:00 Intake Total 400 ml Balance 400 ml Intake Oral 400 ml # Voids 2 General Appearance: Alert, Oriented X3, Cooperative, No acute distress HEENT: Atraumatic, PERRLA Lungs: Clear to auscultation, Normal air movement Cardiovascular: Normal S1, Normal S2 Abdomen: Normal bowel sounds, Soft, No tenderness, No hepatospenomegaly Musculoskeletal: Normal sensory function, Normal motor function Skin: Dry, Intact Psych/Mental Status: Mental status NL, Mood NL Medications Current Medications Medications Dose Ordered Sig/Feng Route Start Time Stop Time Status Last Admin Dose Admin Aspirin 81 mg DAILY PO 03/12/25 10:00 03/13/25 09:41 81 MG Atorvastatin Calcium 40 mg HS PO 03/12/25 22:00 03/12/25 21:21 40 MG Acetaminophen 650 mg Q6HP PRN PO 03/12/25 07:30 Lorazepam 0.5 mg Q6HP PRN PO 03/12/25 07:30 03/12/25 21:57 0.5 MG Nitroglycerin 0.4 mg Q5MINP PRN SL 03/12/25 07:30 Morphine Sulfate 2 mg Q30M PRN IV 03/12/25 07:30 03/13/25 10:46 2 MG Diagnostic Test (Pha) 1 strip ACHS 03/12/25 11:30 03/13/25 11:58 1 STRIP Dextrose 50 ml UD PRN IV 03/12/25 07:30 Gabapentin 300 mg TID PO 03/12/25 14:00 03/13/25 14:26 300 MG Lisinopril 10 mg DAILY PO 03/12/25 10:00 03/13/25 09:42 10 MG Mesalamine 800 mg BID PO 03/12/25 22:00 03/13/25 09:41 800 MG Metoprolol Succinate 25 mg DAILY PO 03/12/25 10:00 03/13/25 09:42 25 MG Pantoprazole Sodium 40 mg DAILY PO 03/13/25 10:00 03/13/25 09:41 40 MG Insulin Glargine 10 units BID@1000,2200 SC 03/12/25 10:00 03/13/25 09:39 10 UNITS Acetaminophen/ Hydrocodone Bitart 1 tab Q4HPRN PRN PO 03/12/25 09:45 03/13/25 06:10 1 TAB Diagnostic Test (Pha) 1 strip ACHS 03/13/25 17:00 UNV Insulin Human Regular HS SC 03/13/25 22:00 UNV Insulin Human Regular AC SC 03/13/25 17:00 UNV Dextrose 50 ml UD PRN IV 03/13/25 15:15 UNV Laboratory Results Laboratory Tests 03/12/25 06:55 03/13/25 06:04 Chemistry Test 03/13/25 06:04 Calcium Level 8.0 mg/dL (8.7-10.4) L Magnesium Level 1.6 mg/dL (1.6-2.6) Lipid panel Test 03/13/25 06:04 Cholesterol Level 93 mg/dL (< 200) HDL Cholesterol 29 mg/dL (40-59) L Triglycerides Level 220 mg/dL (< 150) H Urinalysis Test 03/12/25 08:50 Urine Color Light-yellow (Yellow) Urine Clarity Clear (Clear) Urine pH 5.5 (5.0-9.0) Urine Specific [place] 1.036 (1.001-1.035) Urine Protein Negative (Negative) Urine Ketones Negative (Negative) Urine Blood Negative /uL (Negative) Urine Nitrite Negative (Negative) Urine Bilirubin Negative (Negative) Urine Urobilinogen Normal mg/dL (Negative) Urine Leukocyte Esterase Negative /uL (Negative) Urine RBC 8 /hpf (0 - 4) Urine Microscopic WBC 5 /HPF (0-5) Urine Squamous Epithelial Cells Mod /hpf (<5) Urine Bacteria None seen /hpf (None Seen) Urine Yeast (Budding) Occasional /hpf (None Urine Glucose 4+ mg/dL (Normal) H Microbiology Microbiology Date/Time Source Procedure Growth Status 03/12/25 18:27 Nose MRSA Screen - Final Complete Labs and/or images reviewed: Labs reviewed by me, Image(s) reviewed by me Assessment/Plan Assessment/Plan Impression: -chest pain, noncardiac related -obesity -anxiety disorder -depression -diabetes mellitus, uncontrolled -history of CVA Plan: -patient recently had coronary angiogram with further cardiac workup. No CAD amenable for stenting noted. Patient has had multiple admissions to this hospital with Cardiology not recommending ischemia workup at this time. Currently there are no EKG changes. Patient has negative troponins x4. This was discussed with the patient -increase regular insulin sliding scale to moderate q.4 coverage. Continue Lantus. -continue beta-chelsea and ELAINE inhibitor. Trial of Imdur for chest pain for possibility of small-vessel disease. -discussed with the patient plan of care including controlling blood sugars with discharge home tomorrow once sugars are controlled. 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 Total time spent with patient discussing and formulating plan of care: 35 minutes. This medical document was created using an electronic medical record system with [employer] dictation system. Although this document has been carefully reviewed, there may still be some phonetic and typographical errors. These areas are purely typographical due to imperfections of the software programs, and do not reflect any compromise in the patient's medical care. Plan discussed with: Patient, Other (RN) My Orders Orders - JUSTIN ONTIVEROS NP Procedure Category Date Status Time Glucose Blood PHA 03/13/25 Logged (Accu-Chek Comfort 17:00 Insulin R (Human) PHA 03/13/25 Logged (Insulin R) 22:00 Insulin R (Human) PHA 03/13/25 Logged (Insulin R) 17:00 Dextrose 50% Syringe PHA 03/13/25 Logged 15:15 Date of Service: Mar 13, 2025 Billing Provider: JUSTIN ONTIVEROS NP Common Visit Codes: [id number] INP/OBS CARE(HIGH) JUSTIN ONTIVEROS NP Mar 13, 2025 15:49
[2025-03-13] MEDS: ACCU-CHEK COMFORT CURVE STRIP VI SCH (17:00)
[2025-03-13] MEDS: InsuLIN REG 1unit/0.01ml Soln (100units/ml) SC SCH ×2 (17:00→23:15)
[2025-03-13] MEDS: ISOSORBIDE MONONITRATE ER 60 MG TAB PO SCH (17:47)
[2025-03-14] VITALS (10 sets, daily range): BP systolic 103–121; BP diastolic 56–74; PULSE 69–87; RESP 18–19; TEMP 97.7–98.7; O2SAT 93–99
[2025-03-14] MEDS ORDERED: INSRTEST IV (12:06)
[2025-03-14] MEDS ORDERED: ISOS1TAB28 PO (12:06)
--- NOTE | 2025-03-14 12:10 | DVHDS2 ---
Discharge Summary Date of Admission Mar 12, 2025 at 07:22 Date of Discharge: Mar 14, 2025 Admitting Diagnosis Chest pain rule out ACS Labs/Diagnostic Data: Laboratory Results Test 03/14/25 06:33 03/13/25 06:04 03/12/25 08:50 03/12/25 06:55 POC Glucose 308 mg/dl (70-106) Sodium Level 137 mmol/L (136-145) Potassium Level 4.3 mmol/L (3.5-5.1) Chloride Level 103 mmol/L (98-107) Carbon Dioxide Level 22 mmol/L (20-31) Anion Gap 12 (5-15) Blood Urea Nitrogen 11 mg/dL (9-23) Creatinine 0.58 mg/dL (0.550-1.02) Glomerular Filtration Rate Calc 100 mL/min (>90) BUN/Creatinine Ratio 19.0 (10.0-20.0) Serum Glucose 218 mg/dL (74-106) Calcium Level 8.0 mg/dL (8.7-10.4) Magnesium Level 1.6 mg/dL (1.6-2.6) Troponin I High Sensitivity < 3 ng/L (</=34) Triglycerides Level 220 mg/dL (< 150) Cholesterol Level 93 mg/dL (< 200) LDL Cholesterol 43 mg/dL (< 100) HDL Cholesterol 29 mg/dL (40-59) Urine Color Light-yellow (Yellow) Urine Clarity Clear (Clear) Urine pH 5.5 (5.0-9.0) Urine Specific [place] 1.036 (1.001-1.035) Urine Protein Negative (Negative) Urine Ketones Negative (Negative) Urine Blood Negative /uL (Negative) Urine Nitrite Negative (Negative) Urine Bilirubin Negative (Negative) Urine Urobilinogen Normal mg/dL (Negative) Urine Leukocyte Esterase Negative /uL (Negative) Urine RBC 8 /hpf (0 - 4) Urine Microscopic WBC 5 /HPF (0-5) Urine Squamous Epithelial Cells Mod /hpf (<5) Urine Bacteria None seen /hpf (None Seen) Urine Yeast (Budding) Occasional /hpf (None Urine Glucose 4+ mg/dL (Normal) Urine Opiates Screen Neg (NEGATIVE) Urine Fentanyl Screen Neg (NEGATIVE) Urine Barbiturates Screen Neg (NEGATIVE) Urine Phencyclidine Screen Neg (NEGATIVE) Urine Amphetamines Screen Neg (NEGATIVE) Urine Benzodiazepines Screen Neg (NEGATIVE) Urine Cocaine Screen Neg (NEGATIVE) Urine Cannabinoids Screen Neg (NEGATIVE) White Blood Count 6.3 10^3/uL (4.4-10.8) Red Blood Count 4.74 10^6/uL (4.0-5.20) Hemoglobin 12.8 g/dL (12.2-16.2) Hematocrit 39.1 % (36.0-46.0) Mean Corpuscular Volume 82.5 fL (80.0-100.0) Mean Corpuscular Hemoglobin 26.9 pg (28.0-32.0) Mean Corpuscular Hemoglobin Concent 32.6 g/dL (32.0-36.0) Red Cell Distribution Width 16.1 % (11.8-14.3) Platelet Count 193 10^3/uL (140-450) Mean Platelet Volume 8.7 fL (6.9-10.8) Neutrophils (%) (Auto) 76.3 % (37.0-80.0) Lymphocytes (%) (Auto) 15.5 % (10.0-50.0) Monocytes (%) (Auto) 6.2 % (0.0-12.0) Eosinophils (%) (Auto) 1.2 % (0.0-7.0) Basophils (%) (Auto) 0.8 % (0.0-2.0) Neutrophils # (Auto) 4.8 10 ^3/uL (1.6-8.6) Lymphocytes # (Auto) 1.0 10 ^3/uL (0.4-5.4) Monocytes # (Auto) 0.4 10 ^3/uL (0-1.3) Eosinophils # (Auto) 0.1 10 ^3/uL (0-0.8) Basophils # (Auto) 0.1 10 ^3/uL (0-0.2) Nucleated Red Blood Cells 0.1 % Total Bilirubin 0.3 mg/dL (0.2-1.0) Aspartate Amino Transferase (AST) 15 U/L (13-40) Alanine Aminotransferase (ALT) 22 U/L (7-40) Alkaline Phosphatase 109 U/L (46-116) Total Protein 6.7 g/dL (5.7-8.2) Albumin 4.0 g/dL (3.2-4.8) Beta-Hydroxybutyric Acid 0.207 mmol/L (< 0.4) Thyroid Stimulating Hormone (TSH) 0.81 uIU/mL (0.55-4.78) Free Thyroxine (T4) Calculated 0.96 ng/dL (0.89-1.76) Other Laboratory Tests 03/13/25 06:04 03/12/25 06:55 Brief Hx & Hospital Course: History of Present Illness Dara Anthnoy is a 64-year-old female with past medical history of CAD, CVA with no deficits, diabetes, hyperlipidemia, hypertension, [place], appendectomy, bilateral tubal ligation, cholecystectomy, , hernia repair, lumbar laminectomy, neurostimulator x2, neck fusion, left shoulder surgery, and right ankle surgery who presents to the ED with chest pain that started this a.m. at 4. She reports that the pain woke her up from her sleep also endorses that the pain is 7/10 feels like someone is sitting on her chest and constant. Patient states that there are no triggering or alleviating factors. She also reports that she was here last week and does not have a PCP. She is attempting to find a PCP. She also states that her blood sugar is elevated and does not have any insulin. She reports that is due to her insurance not covering it. She denies recent travels, recent trauma or injury, recent sick contacts, recent ingestion of spoiled food, shortness of breath, fever, chills, lightheadedness, weakness, dizziness, abdominal pain, nausea, vomiting, diarrhea, or urinary symptoms. Course of hospitalization: Long discussion was made with patient's medical history including recent coronary angiogram. Patient was placed on beta blockers, as well as new prescription for isosorbide nitrate, for which the patient states has alleviated her chest pain. Patient also reports that she has been out of her Novolin R, with the patient noted to have severely elevated blood sugars while in the hospital. Patient was placed on both Lantus twice a day as well as an aggressive insulin sliding scale with better control of her blood sugars. Given ACS ruled out, blood sugars controlled, and improvement with the patient's chest pain, she will be discharged home and is instructed to follow up with her PCP in 1-2 weeks. Physical examination General: Alert and Oriented x3. No acute distress. Well-nourished. Obese Eyes: EOMI. Anicteric. HENT: Moist mucous membranes. Lungs: Clear to auscultation bilaterally. No accessory muscle use. Cardiovascular: Regular rate and rhythm. No murmur. No JVD. Abdomen: Soft, non-tender and non-distended. No palpable masses. Extremities: No edema. Non-tender. Skin: No rashes or lesions. Warm. Neurologic: No focal neurological deficits. CN II-XII grossly intact, but not individually tested. Psychiatric: Cooperative. Appropriate mood and affect. Total time spent with patient discussing and formulating plan of care: 35 minutes. This medical document was created using an electronic medical record system with [employer] dictation system. Although this document has been carefully reviewed, there may still be some phonetic and typographical errors. These areas are purely typographical due to imperfections of the software programs, and do not reflect any compromise in the patient's medical care. Condition at Discharge: Guarded Final Diagnosis/Problems List Chest pain Severe hyperglycemia -chest pain, noncardiac related -obesity -anxiety disorder -depression -diabetes mellitus, uncontrolled -history of CVA Discharge Disposition: Home Discharge Instruct/Medications Diet: Consistent carbohydrate, Cardiac 2g Na,low cholest Activity: No Restrictions, As Tolerated Follow Up/Referral: Follow up with PCP in 1-2 weeks Medications: Novolin sliding scale Imdur 30 mg p.o. daily Continue all previous home medications Scheduled Aspirin (Aspirin Low Dose), 81 MG PO DAILY, (Reported) Atorvastatin Calcium (Atorvastatin Calcium), 1 TAB PO HS, (Reported) Clonazepam (KlonoPIN TABLET), 1 TAB PO BID Fluticasone Propionate (Nasal) (Fluticasone Propionate), 50 MCG EACHNOSTRI Q12HR Gabapentin (Gabapentin), 300 MG PO TID Insulin Glargine (Basaglar Kwikpen), 45 UNIT SC BID, (Reported) Insulin Glargine-Yfgn (Insulin Glargine), 50 UNIT SC BID, (Reported) Insulin Regular (Human) (Novolin R Flexpen), 15 UNIT IJ TID Insulin Regular (Human) (Novolin R), 1 UNIT IV AC Isosorbide Mononitrate (Isosorbide Mononitrate Er), 1 TAB PO DAILY Lisinopril (Lisinopril), 10 MG PO DAILY, (Reported) Mesalamine (Canasa), 400 MG RE BID, (Reported) Mesalamine (Mesalamine Dr), 2 CAP PO BID, (Reported) Metoprolol Succinate (Metoprolol Succinate Er), 1 TAB PO DAILY, (Reported) Omeprazole (Gnp Omeprazole), 20 MG PO DAILY, (Reported) Pitolisant Hydrochloride (Wakix), 2 TAB PO DAILY, (Reported) Semaglutide (Ozempic), 2 MG SC QWEEKLY, (Reported) Scheduled PRN Docusate Sodium (Docusate Sodium), 100 MG PO BIDPRN PRN Lorazepam (Ativan Tablet), 1 TAB PO TID PRN Tramadol HCl (Tramadol HCl), 50 MG PO TID PRN 36 Discharge Statement: "Patient was advised to return to the ER or call 911 if any headaches, dizziness, shortness of breath, chest pain, abdominal pain, bleeding, fevers, or worsening of medical condition. Patient was counseled about treatment plan, medications, possible side effects, patientverbalized understanding. All questions were answered to the best of my ability. This discharge took greater then 30 minutes in planning, reviewing documentation, counseling the patient, and discussing with other team members." ASSESSMENT ASSESSMENT Assessment Chest pain Severe hyperglycemia Date of Service: Mar 14, 2025 Billing Provider: JUSTIN ONTIVEROS NP Common Visit Codes: [id number] DISCH DAY >30min JUSTIN ONTIVEROS NP Mar 14, 2025 12:10
[2025-03-14] MEDS ORDERED: DEXTROSE (50%) 50ML SYRG IV PRN (12:15)
[2025-03-14] MEDS: InsuLIN REG 1unit/0.01ml Soln (100units/ml) SC SCH (13:48)
[2025-03-14] MEDS ORDERED: InsuLIN REG 1unit/0.01ml Soln (100units/ml) SC SCH (16:00)
[2025-03-14] MEDS: ACCU-CHEK COMFORT CURVE STRIP VI SCH (16:21)
[2025-03-14] MEDS: ONDANSETRON HCL 4 MG/2 ML VIAL IV PRN (23:13)
[2025-03-15 01:04] VITALS: BP 117/65; PULSE 85; RESP 20; TEMP 98.2; O2SAT 98
[2025-03-15 05:00] VITALS: BP 134/59; PULSE 72; RESP 20; TEMP 98.2; O2SAT 99
[2025-03-15 08:00] VITALS: PULSE 80; PULSE 85; RESP 18; O2SAT 95
[2025-03-15 08:41] VITALS: BP 115/60; PULSE 75; RESP 18; TEMP 97.7; O2SAT 93
[2025-03-15] MEDS: INSULIN LANTUS (GLARGINE) 1 /0.01ml (100units/ml) SC SCH (08:50)
--- NOTE | 2025-03-15 11:34 | DVHPN2 ---
Subjective Denies having any chest pain Reviewed: Care Plan, H&P, Labs, Medications Changes from previous H/P or p: Changes General: Per HPI Cardiovascular: Chest Pain Objective Vitals Vital Signs Date Time Temp Pulse Resp B/P (MAP) Pulse Ox O2 Delivery O2 Flow Rate FiO2 03/15/25 08:44 115/60 03/15/25 08:43 75 03/15/25 08:41 97.7 18 93 97.7 03/15/25 08:00 Room Air* 0 21 Intake/Output Intake and Output 03/15/25 07:00 Intake Total 2925 ml Balance 2925 ml Intake Oral 2925 ml # Voids 9 General Appearance: Alert, Oriented X3, Cooperative, No acute distress HEENT: Atraumatic, PERRLA Lungs: Clear to auscultation, Normal air movement Cardiovascular: Normal S1, Normal S2 Abdomen: Normal bowel sounds, Soft, No tenderness, No hepatospenomegaly Musculoskeletal: Normal sensory function, Normal motor function Skin: Dry, Intact Psych/Mental Status: Mental status NL, Mood NL Medications Current Medications Medications Dose Ordered Sig/Feng Route Start Time Stop Time Status Last Admin Dose Admin Aspirin 81 mg DAILY PO 03/12/25 10:00 03/15/25 08:43 81 MG Atorvastatin Calcium 40 mg HS PO 03/12/25 22:00 03/14/25 21:47 40 MG Acetaminophen 650 mg Q6HP PRN PO 03/12/25 07:30 Lorazepam 0.5 mg Q6HP PRN PO 03/12/25 07:30 03/14/25 23:34 0.5 MG Nitroglycerin 0.4 mg Q5MINP PRN SL 03/12/25 07:30 Gabapentin 300 mg TID PO 03/12/25 14:00 03/15/25 05:34 300 MG Lisinopril 10 mg DAILY PO 03/12/25 10:00 03/15/25 08:44 10 MG Mesalamine 800 mg BID PO 03/12/25 22:00 03/15/25 08:42 800 MG Metoprolol Succinate 25 mg DAILY PO 03/12/25 10:00 03/15/25 08:43 25 MG Pantoprazole Sodium 40 mg DAILY PO 03/13/25 10:00 03/15/25 08:43 40 MG Acetaminophen/ Hydrocodone Bitart 1 tab Q4HPRN PRN PO 03/12/25 09:45 03/15/25 05:42 1 TAB Isosorbide Mononitrate 30 mg DAILY PO 03/13/25 15:45 03/15/25 08:44 30 MG Diagnostic Test (Pha) 1 strip IQ4HR 03/14/25 16:00 03/15/25 08:42 1 STRIP Dextrose 50 ml UD PRN IV 03/14/25 12:15 Insulin Human Regular IQ4HR SC 03/14/25 13:00 03/15/25 08:49 8 UNITS Ondansetron HCl 4 mg Q6HPRN PRN IV 03/14/25 22:30 03/14/25 23:13 4 MG Insulin Glargine 20 units BID@1000,2200 SC 03/15/25 10:00 03/15/25 08:50 20 UNITS Laboratory Results Laboratory Tests 03/12/25 06:55 03/13/25 06:04 Urinalysis Test 03/12/25 08:50 Urine Color Light-yellow (Yellow) Urine Clarity Clear (Clear) Urine pH 5.5 (5.0-9.0) Urine Specific [place] 1.036 (1.001-1.035) Urine Protein Negative (Negative) Urine Ketones Negative (Negative) Urine Blood Negative /uL (Negative) Urine Nitrite Negative (Negative) Urine Bilirubin Negative (Negative) Urine Urobilinogen Normal mg/dL (Negative) Urine Leukocyte Esterase Negative /uL (Negative) Urine RBC 8 /hpf (0 - 4) Urine Microscopic WBC 5 /HPF (0-5) Urine Squamous Epithelial Cells Mod /hpf (<5) Urine Bacteria None seen /hpf (None Seen) Urine Yeast (Budding) Occasional /hpf (None Urine Glucose 4+ mg/dL (Normal) H Microbiology Microbiology Date/Time Source Procedure Growth Status 03/12/25 18:27 Nose MRSA Screen - Final Complete Labs and/or images reviewed: Labs reviewed by me, Image(s) reviewed by me Assessment/Plan Assessment/Plan Impression: -chest pain, noncardiac related -obesity -anxiety disorder -depression -diabetes mellitus, uncontrolled -history of CVA Plan: Patient discharged yesterday. Held secondary to increased blood sugars. Blood sugars now controlled. Plans for discharge today. Total time spent with patient discussing and formulating plan of care: 35 minutes. This medical document was created using an electronic medical record system with [employer] dictation system. Although this document has been carefully reviewed, there may still be some phonetic and typographical errors. These areas are purely typographical due to imperfections of the software programs, and do not reflect any compromise in the patient's medical care. Plan discussed with: Patient, Other (RN) My Orders Orders - JUSTIN ONTIVEROS NP Procedure Category Date Status Time Glucose Blood PHA 03/14/25 In Process (Accu-Chek Comfort 16:00 Dextrose 50% Syringe PHA 03/14/25 In Process 12:15 Insulin R (Human) PHA 03/14/25 In Process (Insulin R) 13:00 Insulin Lantus PHA 03/15/25 In Process (Glargine) (Lantus) 10:00 Discharge DISCHARGE 03/15/25 Transmitted 08:13 Date of Service: Mar 15, 2025 Billing Provider: JUSTIN ONTIVEROS NP Common Visit Codes: [id number] INP/OBS CARE(MOD) JUSTIN ONTIVEROS NP Mar 15, 2025 11:34
--- NOTE | 2025-03-15 12:19 | ECG ---
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
--- NOTE | 2025-03-15 12:41 | ECG ---
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
== END 2025-03-15 11:45 | disposition home or self-care (01) | DRG 638 ==
LOC: EDUNIT# 06:28 → EDBD 06:28 → ER 06:31 → OVERFLOW 07:22 → TELE-EAST 17:12
PROVIDERS: ADMIT Nurse Practitioner Acute Care; ATTEND Nurse Practitioner Acute Care
DX: E11.65 Type 2 diabetes mellitus with hyperglycemia (principal); Z68.42 Body mass index [BMI] 45.0-49.9, adult; K21.9 Gastro-esophageal reflux disease without esophagitis; F32.A Depression, unspecified; E66.9 Obesity, unspecified; F41.9 Anxiety disorder, unspecified; I10 Essential (primary) hypertension; E78.5 Hyperlipidemia, unspecified; I25.10 Atherosclerotic heart disease of native coronary artery without angina pectoris; Z88.2 Allergy status to sulfonamides; Z88.8 Allergy status to other drugs, medicaments and biological substances; Z86.73 Personal history of transient ischemic attack (TIA), and cerebral infarction without residual deficits; Z90.49 Acquired absence of other specified parts of digestive tract; Z98.51 Tubal ligation status; I25.2 Old myocardial infarction; Z98.1 Arthrodesis status; Z83.3 Family history of diabetes mellitus; Z79.4 Long term (current) use of insulin; Z79.82 Long term (current) use of aspirin; Z79.899 Other long term (current) drug therapy
CPT/HCPCS: 36415; 71046; 80048; 80053; 80061; 80307; 81001; 82010; 82962; 83735; 84439; 84443; 84484; 85025; 87081; 93005; 96374; G0378; J1815; J2405

== ENCOUNTER 2025-06-02 07:47 | Inpatient (IN) | payer MEDICARE, BC, MEDICAID ==
[~2025-06-02] VITALS: Ht 162.6 cm; Wt 125.3 kg
[~2025-06-02 07:47] MED LIST changes: +DULO1CAP6 PO; +ESTR0.1C5 VG; +INSRTEST IV; +INSU100I45 SC; +INSU100I70 SC; +ISOS1TAB28 PO; +MET25T PO; +TIRZ5INJ SC
--- NOTE | 2025-06-02 08:28 | ED.PDOC ---
History of Present Illness HPI Comments 65-year-old female BIBA with prior medical history of angina, CAD and the chief complaint of chest pain. Reports on having left-sided pressure-like chest pain which started a midnight last night, associated with nausea and diarrhea. Denies any other symptoms at this time. Denies chills, fever, N/V/D, SOB. No other associated symptoms, modifiers, recent injuries or sick contacts present at this time. Chief Complaint: Chest Pain Time Seen by MD: 08:20 Primary Care Provider: BRIDGETTE Reviewed Notes: Nurses Notes, Medications, Allergies Allergies: Coded Allergies: Sulfa Drugs (Verified Allergy, Mild, rash, 08/13/24) Sulfa Antibiotics (Unverified Allergy, Unknown, 09/05/24) Indomethacin (Verified Adverse Reaction, Mild, migraine, 08/13/24) Home Meds Active Scripts Isosorbide Mononitrate (Isosorbide Mononitrate Er) 30 Mg Tab, 1 TAB PO DAILY for 30 Days, #30 TAB 5 Refills Prov:JUSTIN ONTIVEROS NP 03/14/25 Insulin Regular (Human) (Novolin R) 100 Unit/Ml Inj, 1 UNIT IV AC for 30 Days, #2 INJ 2 Refills Blood sugar 150 to 250: 8 units Blood sugar 251 to 350: 10 units Blood sugar 351 to 400: 12 units Blood sugar 401 and above: 14 units and go to emergency room Prov:JUSTIN ONTIVEROS NP 03/14/25 Clonazepam (KlonoPIN TABLET) 0.5 Mg Tb, 1 TAB PO BID for 15 Days, #30 TAB 1 Refill Prov:MOUNIKA TILLMAN MD 12/07/24 Tramadol HCl (Tramadol HCl) 50 Mg Tab, 50 MG PO TID PRN, #30 TAB Prov:CECILIA BRITO MD 10/07/24 Lorazepam (ATIVAN TABLET) 0.5 Mg Tb, 1 TAB PO TID PRN, #30 TAB Prov:CECILIA BRITO MD 10/07/24 Gabapentin (Gabapentin) 300 Mg Cap, 300 MG PO TID for 30 Days, #90 CAP 3 Refills Prov:SETH TAO DO 08/16/24 Docusate Sodium (Docusate Sodium) 100 Mg Cap, 100 MG PO BIDPRN PRN for 15 Days, #15 CAP Prov:MOUNIKA TILLMAN MD 04/20/24 Fluticasone Propionate (Nasal) (Fluticasone Propionate) 50 Mcg/Act Spr, 50 MCG EACHNOSTRI Q12HR for 30 Days, #2 SPRAY Prov:MOUNIKA TILLMAN MD 04/17/24 Insulin Regular (Human) (Novolin R Flexpen) 100 Unit/Ml Inj, 15 UNIT IJ TID for 28 Days, #100 INJ 15 units before meals, cheack blood sugar 2 hours after meal and add sliding scale Prov:MOUNIKA TILLMAN MD 04/17/24 Reported Medications Insulin Glargine-Yfgn (Insulin Glargine) 100 Unit/Ml Inj, 50 UNIT SC BID, INJ 03/12/25 Insulin Glargine (Basaglar Kwikpen) 100 Unit/Ml Inj, 45 UNIT SC BID, INJ 02/26/25 Metoprolol Succinate (Metoprolol Succinate Er) 25 Mg Tab, 1 TAB PO DAILY 02/26/25 Atorvastatin Calcium (ATORVASTATIN CALCIUM) 40 Mg Tab, 1 TAB PO HS 01/27/25 Omeprazole (Gnp Omeprazole) 20 Mg Tab, 20 MG PO DAILY, TAB 12/04/24 Aspirin (Aspirin Low Dose) 81 Mg Chw, 81 MG PO DAILY, TAB.CHEW 12/04/24 Semaglutide (Ozempic) 4 Mg/3 Ml Inj, 2 MG SC QWEEKLY, INJ 09/05/24 Mesalamine (Mesalamine Dr) 400 Mg Cap, 2 CAP PO BID 09/05/24 Mesalamine (Canasa) 1,000 Mg Sup, 400 MG RE BID, SUPP 08/28/24 Pitolisant Hydrochloride (Wakix) 17.8 Mg Tab, 2 TAB PO DAILY for NARCOLEPSY for 90 Days, #180 11/02/21 Lisinopril (Lisinopril) 10 Mg Tab, 10 MG PO DAILY for 30 Days, MG 07/26/16 Information Source: Patient Mode of Arrival: EMS Severity: Moderate Timing: Hours Duration: Since onset, Hours Prehospital treatment: None Past Medical History PAST MEDICAL HISTORY: CAD, CVA, DM, High Lipids, HTN, DE Past Medical History (Other): Angina Surgical History: Appendectomy, BTL, Cholecystectomy, , Hernia Repair 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 TENDER PEAT History: Denies all SHREDDER TENDER PEAT Hx Family History Family History: Reviewed,noncontributory to illness, Unknown Social History Smoker: Non-Smoker Alcohol: Rarely Drugs: Denies Drug Use Lives In: Home Constitutional: denies: chills, diaphoresis, fatigue, fever, malaise, sweats, weakness, others EENTM: denies: blurred vision, double vision, ear bleeding, ear discharge, ear drainage, ear pain, ear ringing, eye pain, eye redness, hearing loss, mouth pain, mouth swelling, nasal discharge, nose bleeding, nose congestion, nose pa in, photophobia, tearing, throat pain, throat swelling, voice changes, others Respiratory: denies: cough, hemoptysis, orthopnea, SOB at rest, shortness of breath, SOB with excertion, stridor, wheezing, others Cardiovascular: reports: chest pain; denies: dizzy spells, diaphoresis, Dyspnea on exertion, edema, irregular heart beat, left arm pain, lightheadedness, palpitations, PND, syncope, others Gastrointestinal: reports: diarrhea, nausea; denies: abdomen distended, abdominal pain, blood streaked bowels, constipated, dysphagia, difficulty swallowing, hematemesis, melena, poor appetite, poor fluid intake, rectal bleeding, rectal pain, vomiting, others Genitourinary: denies: abnormal vagina bleeding, burning, dyspareunia, dysuria, flank pain, frequency, hematuria, incontinence, pain, , vagina discharge, urgency, others Neurological: denies: dizziness, fainting, headache, left sided numbness, left sided weakness, numbness, paresthesia, pre-existing deficit, right sided numbness, right sided weakness, seizure, speech problems, tingling, tremors, weakness, others Musculoskeletal: denies: back pain, gout, joint pain, joint swelling, muscle pain, muscle stiffness, neck pain, others Integumetry: denies: bruises, change in color, change in hair/nails, dryness, laceration, lesions, lumps, rash, wounds, others Allergic/Immunocompromised: denies: Difficulty Healing, Frequent Infections, Hives, Itching, others Hematologic/Lymphatic: denies: anemia, blood clots, easy bleeding, easy bruising, swollen glands, others Endocrine: denies: excessive hunger, excessive sweating, excessive thirst, excessive urination, flushing, intolerance to cold, intolerance to heat, unexplained weight gain, unexplained weight loss, others Psychiatric: denies: anxiety, bipolar disorder, depression, hopeless, panic disorder, schizophrenia, sleepless, suicidal, others All Other Systems: Reviewed and Negative Physical Exam General Appearance: No Apparent Distress, Normal HEENT: Normal ENT Inspection, Pharynx Normal, TMs Normal Neck: Full Range of Motion, Non-Tender, Normal, Normal Inspection Respiratory: Chest Non-Tender, Lungs Clear, No Accessory Muscle Use, No Respiratory Distress, Normal Breath Sounds Cardiovascular: No Edema, No JVD, No Murmur, No Gallop, Normal Peripheral Pulses, Tachycardia Breast Exam: Deferred Gastrointestinal: No Organomegaly, Non Tender, No Pulsatile Mass, Normal Bowel Sounds, Soft Genitalia: Deferred Pelvic: Deferred Rectal: Deferred Extremities: No calf tenderness, Normal capillary refill, Normal inspection, Normal range of motion, Non-tender, No pedal edema Musculoskeletal : Apperance: Normal Neurologic: Alert, streets and buildings decorator II-XII nml as Tested, No Motor Deficits, Normal Affect, Normal Mood, No Sensory Deficits Cerebellar Function: Normal Reflexes: Normal Skin: Dry, Normal Color, Warm Lymphatic: No Adenopathy Was a procedure done? Was a procedure done?: No EKG EKG : Pulse Rate (adult): 116 [place]: Normal Cardiac Rhythm: ST Block: None Hypertrophy: None ST: Normal Differential Dx Considerations may include: ACS, CVA, viral syndrome, electrolyte abnormality, infectious etiology X-Ray, Labs, Meds, VS Vital Signs Date Time Temp Pulse Resp B/P (MAP) Pulse Ox O2 Delivery O2 Flow Rate FiO2 06/02/25 12:20 86 06/02/25 12:20 98.2 86 16 133/83 (100) 95 98.2 06/02/25 10:36 99 06/02/25 08:43 102 06/02/25 08:28 116 06/02/25 08:13 98.2 108 16 108/78 94 98.2 06/02/25 07:47 116 Lab Test 06/02/25 11:38 06/02/25 09:30 06/02/25 08:29 Range/Units Troponin I High Sensitivity 19 20 20 </=34 ng/L White Blood Count 8.3 4.4-10.8 10^3/uL Red Blood Count 5.76 H 4.0-5.20 10^6/uL Hemoglobin 15.1 12.2-16.2 g/dL Hematocrit 47.1 H 36.0-46.0 % Mean Corpuscular Volume 81.8 80.0-100.0 fL Mean Corpuscular Hemoglobin 26.3 L 28.0-32.0 pg Mean Corpuscular Hemoglobin Concent 32.2 32.0-36.0 g/dL Red Cell Distribution Width 15.9 H 11.8-14.3 % Platelet Count 248 140-450 10^3/uL Mean Platelet Volume 8.4 6.9-10.8 fL Neutrophils (%) (Auto) 75.1 37.0-80.0 % Lymphocytes (%) (Auto) 15.6 10.0-50.0 % Monocytes (%) (Auto) 7.2 0.0-12.0 % Eosinophils (%) (Auto) 1.3 0.0-7.0 % Basophils (%) (Auto) 0.8 0.0-2.0 % Neutrophils # (Auto) 6.3 1.6-8.6 10 ^3/uL Lymphocytes # (Auto) 1.3 0.4-5.4 10 ^3/uL Monocytes # (Auto) 0.6 0-1.3 10 ^3/uL Eosinophils # (Auto) 0.1 0-0.8 10 ^3/uL Basophils # (Auto) 0.1 0-0.2 10 ^3/uL Nucleated Red Blood Cells 0.1 % Sodium Level 137 136-145 mmol/L Potassium Level 3.9 3.5-5.1 mmol/L Chloride Level 104 98-107 mmol/L Carbon Dioxide Level 21 20-31 mmol/L Anion Gap 12 5-15 Blood Urea Nitrogen 5 L 9-23 mg/dL Creatinine 0.68 0.550-1.02 mg/dL Glomerular Filtration Rate Calc 96 >90 mL/min BUN/Creatinine Ratio 7.4 L 10.0-20.0 Serum Glucose 276 H 74-106 mg/dL Calcium Level 9.2 8.7-10.4 mg/dL Time of 1ST Reevaluation: 08:50 Reevaluation 1ST: Unchanged Patient Education/Counseling: Diagnosis, Treatment, Prognosis Family Education/Counseling: No Family Present Additional Information High Complexity Problems Acute illness posing threat to life or bodily function (suspected ACS) High Complexity Data Multiple unique labs Independent interpretation of X-ray and EKG Discussion/coordination of care with admitting team High Risk of Morbidity/Mortality Decision regarding hospitalization Critical care performed Potential for sudden deterioration MEDICAL DECISION MAKING (HIGH COMPLEXITY LEVEL 5): The patient presents with acute chest pain highly concerning for acute coronary syndrome (ACS), an acute illness with potential for significant morbidity and mortality. Despite a normal initial diagnostic workup, ACSincluding unstable anginacannot be excluded and remains the leading concern. Data Reviewed / Independent Interpretation: I independently reviewed and interpreted all labs and imaging. CBC and BMP were within normal limits. High-sensitivity troponin was normal, but a single normal value does not exclude ACS. Chest X-ray was independently reviewed by me and demonstrated no acute cardiopulmonary abnormalities. I independently reviewed the EKG, which showed normal sinus rhythm without ischemic changes. Despite these benign findings, the patient continues to describe exertional and pressure-like chest pain radiating in a pattern consistent with possible ACS. Unstable angina may present with normal biomarkers and nondiagnostic EKGs, and therefore this diagnosis remains a high-risk, active consideration. Differential Diagnosis & Management: The differential included ACS/unstable angina, pulmonary embolism, aortic dissection, pneumothorax, arrhythmia, and esophageal or musculoskeletal etiologies. Given the symptom pattern and cardiac risk profile, ACS remains the most concerning and cannot be safely ruled out in the ED. Serial troponins, telemetry monitoring, and further cardiac evaluationincluding possible stress testing or cardiology consultationare medically necessary. Risk / Disposition: Due to the ongoing concern for evolving cardiac ischemia, the inability to exclude ACS at this stage, and the potential for rapid deterioration, I det ermined that inpatient admission is required for continued monitoring and further diagnostic evaluation. I discussed the case and plan of care with the admitting inpatient team. The patient understands and agrees with admission. CRITICAL CARE TIME: 37 MINUTES A total of 37 minutes of critical care time was provided, exclusive of separately billable procedures. Time was spent in high-intensity evaluation and management due to the risk of sudden clinical deterioration from suspected ACS. Activities included: Continuous cardiac monitoring Serial reassessment of vital signs and symptoms Independent interpretation of EKG and imaging Review and integration of diagnostic data Coordination of care and discussion with nursing and the admitting service Development of treatment and monitoring plan Frequent bedside reassessments Critical care services were medically necessary due to the immediate potential for life-threatening cardiac ischemia. SEPSIS Sepsis Screen Date sepsis recognized/suspect: Jun 02, 2025 Time Sepsis recognized/suspect: 0755 Recent Procedure: No On Antibiotic Therapy: No Respiratory Rate >20: No Heart Rate >90: Yes Temp<36 C (96.8 F) or >38.3 C: No SBP <90 or MAP <65 mmHG: No New Acute Mental Status Change: No Is the patient on CPAP, BIPAP,: No Physician Orders Electrocardigram (06/02/25 07:50) Electrocardigram (06/02/25 08:50) Electrocardigram (06/02/25 10:50) Urinalysis (06/02/25 08:11) Chest Portable (06/02/25 08:11) Morphine Sulfate Injection (06/02/25 12:45) Ondansetron Hcl (Zofran) (06/02/25 12:45) Vital Signs Date Time Temp Pulse Resp B/P (MAP) Pulse Ox O2 Delivery O2 Flow Rate FiO2 06/02/25 12:20 86 06/02/25 12:20 98.2 86 16 133/83 (100) 95 98.2 06/02/25 10:36 99 06/02/25 08:43 102 06/02/25 08:28 116 06/02/25 08:13 98.2 108 16 108/78 94 98.2 06/02/25 07:47 116 Laboratory Tests Test 06/02/25 08:29 White Blood Count 8.3 10^3/uL (4.4-10.8) Departure 1 Departure Time of Disposition: 12:40 Impression: Primary Impression: Acute chest pain Disposition: ADMITTED INPATIENT Condition: Serious Critical Care Note Critical Care Time?: No Stability Stability form required: No I personally scribed for MARIBELL WESTBROOK MD ([email or web address]) on 06/02/25 at 08:28. Electronically submitted by Ward Mccoy ([email or web address]). MARIBELL WESTBROOK MD Jun 02, 2025 08:28
[2025-06-02 08:54] LABS: Hematocrit 47.1 % (36.0-46.0); Hemoglobin 15.1 g/dL (12.2-16.2); Mean Corpuscular Hemoglobin 26.3 pg (28.0-32.0); Mean Corpuscular Volume 81.8 fL (80.0-100.0); Nucleated Red Blood Cells % 0.1 %
[2025-06-02 08:55] LABS: Chloride 104 mmol/L (98-107); Potassium 3.9 mmol/L (3.5-5.1); Sodium 137 mmol/L (136-145)
[2025-06-02 08:57] LABS: Anion Gap 12 (5-15); Calcium 9.2 mg/dL (8.7-10.4); Carbon Dioxide 21 mmol/L (20-31)
[2025-06-02 09:01] LABS: BUN/Creatinine Ratio 7.4 (10.0-20.0)
[2025-06-02 09:04] LABS: Blood Urea Nitrogen 5 mg/dL (9-23); Glucose 276 mg/dL (74-106)
--- NOTE | 2025-06-02 09:25 | DVH ---
CHEST RADIOGRAPH INDICATION: cp TECHNIQUE: Single frontal view of the chest was obtained COMPARISON: XY CHEST PORTABLE on DOS: 02/26/25, XY CHEST XRAY 1 VIEW on DOS: 01/27/25, XR CHEST 1 VIEW on DOS: 01/15/25, XY CHEST XRAY 1 VIEW on DOS: 01/03/25, XY CHEST PORTABLE on DOS: 12/03/24 FINDINGS: Lines and Tubes: None Lungs: Congestion Pleura: No effusion. No pneumothorax. Cardiomediastinal contours: Unremarkable Bones: Unremarkable IMPRESSION: Increased interstital prominence. This may represent pulmonary vascular congestion and/or viral pneumonia. Clinical correlation advised.
--- NOTE | 2025-06-02 13:02 | ECG ---
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
--- NOTE | 2025-06-02 13:02 | ECG ---
[facility] Test Date: 2025-06-02 Test Time: 08:43:57 Pat Name: ELVIS CONCEPCION Department: ED Room: 0219T Gender: F Advice Nurse: AIMEE : 1960 Requested By: MARIBELL WESTBROOK Order Number: [id number] Reading MD: Alonzo Aceves Measurements Intervals [place] Rate: 102 P: 60 MA: 156 QRS: -81 QRSD: 89 T: 43 QT: 345 QTc: 450 Interpretive Statements Sinus tachycardia Left anterior fascicular block Low voltage, precordial leads Consider anterior infarct Baseline wander in lead(s) II,III,aVF,V1,V4,V5 Electronically Signed On 06-03-2025 20:09:09 PST by Alonzo Aceves Please click the below link to view image of tracing.
[2025-06-02] MEDS ORDERED: ACETAMINOPHEN 325 MG TAB PO PRN (13:15)
[2025-06-02] MEDS ORDERED: DEXTROSE (50%) 50ML SYRG IV PRN (13:45)
[2025-06-02 13:51] LABS: Alanine Aminotransferase 29.0 U/L (7-40); Albumin 4.7 g/dL (3.2-4.8); Alkaline Phosphatase 115.0 U/L (46-116); Bilirubin, Direct 0.2 mg/dL (<0.3); Bilirubin, Total 0.5 mg/dL (0.2-1.0); Total Protein 7.4 g/dL (5.7-8.2)
--- NOTE | 2025-06-02 13:56 | ECG ---
[facility] Test Date: 2025-06-02 Test Time: 07:42:45 Pat Name: ELVIS CONCEPCION Department: ED Room: 0219T Gender: F Appeals Representative: AIMEE : 1960 Requested By: MARIBELL WESTBROOK Order Number: [id number] Reading MD: Alonzo Aceves Measurements Intervals [place] Rate: 116 P: 56 GA: 161 QRS: -70 QRSD: 98 T: 38 QT: 340 QTc: 473 Interpretive Statements Sinus tachycardia Left anterior fascicular block Low voltage, precordial leads Consider anterior infarct Electronically Signed On 06-03-2025 20:08:58 PST by Alonzo Aceves Please click the below link to view image of tracing.
--- NOTE | 2025-06-02 14:12 | DVHHP2 ---
History of Present Illness History of Present Illness This is a 64-year-old female with past medical history of coronary artery disease, prior stroke, diabetes, hyperlipidemia, hypertension, chronic diastolic heart failure, moderate aortic stenosis, narcolepsy with cataplexy, and ulcerative colitis who presents for evaluation of chest pain. The pain began today around 12:30 PM, described as a pressure-like sensation worsened by walking. She reports a negative stress test in the past, a negative CTA for PE in January 2025, and a cardiac catheterization in February 2024 showing no obstructive CAD. Her most recent echocardiogram from January 2025 showed EF 55%, moderate with valve area 1.5 cm, mild AI, moderate LA dilation, and mild RV dilation. In the ED, her initial HR was 116 (now 86), BP 180/78 (now 133/83), troponins are negative, ECG normal, and labs overall unremarkable except A1c 10.3. PMHx Coronary artery disease, stroke, diabetes, hyperlipidemia, hypertension, chronic diastolic CHF, moderate aortic stenosis, sleep apnea, narcolepsy with cataplexy, ulcerative colitis, chronic low back pain. PSHx Neurostimulator implantation, C-sections. Social History Denies smoking. Denies alcohol. No illicit drug use. Allergies Indomethacin, sulfa antibiotics, sulfa drugs. Home Medications Aspirin, atorvastatin, clonazepam, docusate, fluticasone nasal spray, gabapentin, insulin glargine, insulin regular, isosorbide mononitrate, lisinopril, lorazepam, mesalamine, metoprolol succinate, omeprazole, pitolisant ([employer]), semaglutide, tramadol. ROS Negative except as stated in HPI. No shortness of breath, no nausea/vomiting, no diaphoresis, no palpitations. Review of Systems Allergies: Coded Allergies: Sulfa Drugs (Verified Allergy, Mild, rash, 08/13/24) Sulfa Antibiotics (Unverified Allergy, Unknown, 09/05/24) Indomethacin (Verified Adverse Reaction, Mild, migraine, 08/13/24) Medications Current Medications Medications Dose Ordered Sig/Feng Route Start Time Stop Time Status Last Admin Dose Admin Acetaminophen 650 mg Q6HP PRN PO 06/02/25 13:15 Acetaminophen/ Hydrocodone Bitart 1 tab Q4HP PRN PO 06/02/25 13:15 Morphine Sulfate 2 mg Q4HPRN PRN IV 06/02/25 13:30 Enoxaparin Sodium 40 mg DAILY SC 06/03/25 10:00 Nitroglycerin 0.4 mg Q5MINP PRN SL 06/02/25 13:15 Diagnostic Test (Pha) 1 strip ACHS 06/02/25 17:00 UNV Insulin Human Regular ACHS SC 06/02/25 17:00 UNV Dextrose 50 ml UD PRN IV 06/02/25 13:45 UNV Mesalamine 800 mg BID PO 06/02/25 22:00 UNV Pantoprazole Sodium 40 mg DAILY@0600 PO 06/03/25 06:00 UNV Exam Vital Signs Vital Signs Date Time Temp Pulse Resp B/P (MAP) Pulse Ox O2 Delivery O2 Flow Rate FiO2 06/02/25 12:20 86 06/02/25 12:20 98.2 16 133/83 (100) 95 98.2 Exam General: Alert, in no acute distress. Heart: Regular rhythm, murmur present. Lungs: Clear to auscultation bilaterally. Abdomen: Soft, nondistended, nontender. Extremities: Mild edema. Neuro: Nonfocal, alert, oriented, normal exam. Labs/Xrays Labs Test 06/02/25 11:38 06/02/25 08:29 Range/Units Total Bilirubin 0.5 0.2-1.0 mg/dL Direct Bilirubin 0.2 <0.3 mg/dL Aspartate Amino Transferase (AST) 31 13-40 U/L Alanine Aminotransferase (ALT) 29 7-40 U/L Alkaline Phosphatase 115 46-116 U/L Troponin I High Sensitivity 19 </=34 ng/L Total Protein 7.4 5.7-8.2 g/dL Albumin 4.7 3.2-4.8 g/dL White Blood Count 8.3 4.4-10.8 10^3/uL Red Blood Count 5.76 H 4.0-5.20 10^6/uL Hemoglobin 15.1 12.2-16.2 g/dL Hematocrit 47.1 H 36.0-46.0 % Mean Corpuscular Volume 81.8 80.0-100.0 fL Mean Corpuscular Hemoglobin 26.3 L 28.0-32.0 pg Mean Corpuscular Hemoglobin Concent 32.2 32.0-36.0 g/dL Red Cell Distribution Width 15.9 H 11.8-14.3 % Platelet Count 248 140-450 10^3/uL Mean Platelet Volume 8.4 6.9-10.8 fL Neutrophils (%) (Auto) 75.1 37.0-80.0 % Lymphocytes (%) (Auto) 15.6 10.0-50.0 % Monocytes (%) (Auto) 7.2 0.0-12.0 % Eosinophils (%) (Auto) 1.3 0.0-7.0 % Basophils (%) (Auto) 0.8 0.0-2.0 % Neutrophils # (Auto) 6.3 1.6-8.6 10 ^3/uL Lymphocytes # (Auto) 1.3 0.4-5.4 10 ^3/uL Monocytes # (Auto) 0.6 0-1.3 10 ^3/uL Eosinophils # (Auto) 0.1 0-0.8 10 ^3/uL Basophils # (Auto) 0.1 0-0.2 10 ^3/uL Nucleated Red Blood Cells 0.1 % Sodium Level 137 136-145 mmol/L Potassium Level 3.9 3.5-5.1 mmol/L Chloride Level 104 98-107 mmol/L Carbon Dioxide Level 21 20-31 mmol/L Anion Gap 12 5-15 Blood Urea Nitrogen 5 L 9-23 mg/dL Creatinine 0.68 0.550-1.02 mg/dL Glomerular Filtration Rate Calc 96 >90 mL/min BUN/Creatinine Ratio 7.4 L 10.0-20.0 Serum Glucose 276 H 74-106 mg/dL Hemoglobin A1c 10.3 H <5.7 % A1C Calcium Level 9.2 8.7-10.4 mg/dL SEPSIS Sepsis Screen Date sepsis recognized/suspect: Jun 02, 2025 Time Sepsis recognized/suspect: 0755 Recent Procedure: No On Antibiotic Therapy: No Respiratory Rate >20: No Heart Rate >90: Yes Temp<36 C (96.8 F) or >38.3 C: No SBP <90 or MAP <65 mmHG: No New Acute Mental Status Change: No Is the patient on CPAP, BIPAP,: No Physician Orders Urinalysis (06/02/25 08:11) Chest Portable (06/02/25 08:11) Admit (06/02/25 13:02) Code Status (06/02/25 13:02) Vital Signs .PER UNIT PROTOCOL (06/02/25 13:02) Review Orders With Adm. (06/02/25 13:02) Consistent Carb(Ccho)Diabetes (06/02/25 Lunch) Acetaminophen Tablet (Tylenol Tablet) (06/02/25 13:15) Notify Md Of Changes From Base (06/02/25 13:02) Advance Directive (06/02/25 13:02) Patient Condition (06/02/25 13:02) Allergies (06/02/25 13:02) Hydrocodone-Acet 5/325mg Tab ([place] 5/32 (06/02/25 13:15) Drug Screen (06/02/25 13:02) Enoxaparin Sodium (Lovenox) (06/03/25 10:00) Nitroglycerin Sublingual (Ntrostat Subli (06/02/25 13:15) Oxygen By Nasal Cannula (06/02/25 13:02) Stat Ekg For Chest Pain (06/02/25 13:02) Notify Md Of Changes From Base (06/02/25 13:02) Phone Operator For 24 Hours (06/02/25 13:02) Emergency Dysrhythmia Protocol (06/02/25 13:02) Rhythm Strips Once Every Shift (06/02/25 13:02) Morphine Sulfate Injection (06/02/25 13:30) Glucose Blood (Accu-Chek Comfort Curve T (06/02/25 17:00) Insulin R (Human) (Insulin R) (06/02/25 17:00) Dextrose 50% Syringe (06/02/25 13:45) Mesalamine Dr Capsule (Delzicol Delayed (06/02/25 22:00) Pantoprazole Tablet (Protonix Tablet) (06/03/25 06:00) Vital Signs Date Time Temp Pulse Resp B/P (MAP) Pulse Ox O2 Delivery O2 Flow Rate FiO2 06/02/25 12:20 86 06/02/25 12:20 98.2 86 16 133/83 (100) 95 98.2 06/02/25 10:36 99 06/02/25 08:43 102 06/02/25 08:28 116 06/02/25 08:13 98.2 108 16 108/78 94 98.2 06/02/25 07:47 116 Laboratory Tests Test 06/02/25 08:29 White Blood Count 8.3 10^3/uL (4.4-10.8) Assessment/Plan Assessment/Plan #Rule out ACS #Chest pain # Rule out Unstable angina Given exertional chest pressure, cardiovascular risk factors, and need to rule out ACS despite negative initial markers. continuous telemetry, continue aspirin, optimize BP control,, repeat ECG with symptoms. # Chronic diastolic heart failure Known diagnosis with mild peripheral edema but no acute decompensation signs. Continue home regimen, monitor I/O and daily weights, maintain BP control and avoid excessive fluids. # Moderate aortic stenosis Echo from January 2025 shows valve area 1.5 cm with preserved EF. No need to repeat echo now; continue surveillance and avoid hypotension; notify cardiology if symptoms worsen. # Hypertension BP elevated at arrival but improved without intervention. Resume home antihypertensives as tolerated, monitor closely on telemetry, adjust regimen if persistent elevation. # Type 2 diabetes mellitus poorly controlled A1c 10.3 indicates significant chronic hyperglycemia. Adjust inpatient insulin regimen, hold semaglutide during admission, implement ACHS glucose monitoring, diabetic diet. # Hyperlipidemia Chronic condition managed with statin therapy. Continue atorvastatin and reinforce secondary prevention measures. # Ulcerative colitis Stable without flare symptoms. Continue home mesalamine; monitor for abdominal pain or GI symptoms during admission. # Narcolepsy with cataplexy Chronic condition, stable. Case discussed with Dr Aguillon Full code Plan discussed with: Patient, Other (rn) My Orders Orders - LIAM CARR Procedure Category Date Status Time Admit ADMIT 06/02/25 Transmitted 13:02 Code Status CODE 06/02/25 Transmitted 13:02 Vital Signs RAE 06/02/25 In Process 13:02 Review Orders With RAE 06/02/25 In Process Adm. 13:02 Consistent DIET 06/02/25 Transmitted Carb(Ccho)Diabetes Lunch Acetaminophen Tablet PHA 06/02/25 In Process (Tylenol Tablet) 13:15 Notify Md Of Changes RAE 06/02/25 In Process From Base 13:02 Advance Directive RAE 06/02/25 In Process 13:02 Patient Condition ORDERS 06/02/25 Transmitted 13:02 Allergies RAE 06/02/25 In Process 13:02 Hydrocodone-Acet PHA 06/02/25 In Process 5/325mg Tab ([place] 13:15 Drug Screen LAB 06/02/25 Logged 13:02 Enoxaparin Sodium PHA 06/03/25 In Process (Lovenox) 10:00 Nitroglycerin PHA 06/02/25 In Process Sublingual (Ntrostat 13:15 Oxygen By Nasal RT 06/02/25 Transmitted Cannula 13:02 Stat Ekg For Chest [facility] 06/02/25 In Process Pain 13:02 Notify Of Changes [facility] 06/02/25 In Process From Base 13:02 Phone Operator For [facility] 06/02/25 In Process 24 Hours 13:02 Emergency Dysrhythmia [facility] 06/02/25 In Process Protocol 13:02 Rhythm Strips Once [facility] 06/02/25 In Process Every Shift 13:02 Morphine Sulfate PHA 06/02/25 In Process Injection 13:30 Glucose Blood PHA 06/02/25 Logged (Accu-Chek Comfort 17:00 Insulin R (Human) PHA 06/02/25 Logged (Insulin R) 17:00 Dextrose 50% Syringe PHA 06/02/25 Logged 13:[address] Capsule PHA 06/02/25 Logged (Delzicol Delayed 22:00 Pantoprazole Tablet PHA 06/03/25 Logged (Protonix Tablet) 06:00 Date of Service: Jun 02, 2025 Billing Provider: ELIOT AGUILLON MD Common Visit Codes: [id number] INP/OBS CARE (HIGH) Secondary Visit Codes: [id number] CARE PLAN 30 MINUTES LIAM CARR Jun 02, 2025 14:12
[2025-06-02] MEDS: MORPHINE SULFATE 4 MG/ML SYR/VIAL IV ONE (14:53)
[2025-06-02] MEDS: ONDANSETRON HCL 4 MG/2 ML VIAL IV ONE (14:54)
[2025-06-02] MEDS: MORPHINE SULFATE 4 MG/ML SYR/VIAL IV PRN (14:57)
[2025-06-02] MEDS: LISINOPRIL 5 MG TAB PO ONE (16:26)
[2025-06-02] MEDS: ACCU-CHEK COMFORT CURVE STRIP VI SCH (17:07)
[2025-06-02] MEDS: InsuLIN REG 1unit/0.01ml Soln (100units/ml) SC SCH (17:08)
[2025-06-02 18:58] LABS: Urine Budding Yeast FEW /hpf (None Seen); Urine Protein, UAD 2+ (Negative)
[2025-06-02 19:09] LABS: Amphetamine Screen, Urine Neg (NEGATIVE); Barbiturate Scree,Urine Neg (NEGATIVE); Benzodiazephine Screen, Urine Neg (NEGATIVE); Cannabinoid Screen, Urine Neg (NEGATIVE); Cocaine Screen, Urine Neg (NEGATIVE); Opiate Scree,Urine Pos (NEGATIVE); Phencyclidine Screen, Urine Neg (NEGATIVE)
[2025-06-03] VITALS (7 sets, daily range): BP systolic 93–121; BP diastolic 54–78; PULSE 80–118; RESP 13–97; TEMP 97.9–98.1; O2SAT 97–100
[2025-06-03] MEDS: MESALAMINE 400mg Delayed Release Cap PO SCH (00:18)
[2025-06-03] MEDS: INSULIN LANTUS (GLARGINE) 1 /0.01ml (100units/ml) SC SCH (00:21)
[2025-06-03] MEDS: NITROGLYCERIN 0.4 MG SL TAB SL PRN (03:46)
[2025-06-03] MEDS: PANTOPRAZOLE 40 MG TAB PO SCH (06:38)
[2025-06-03] MEDS: HYDROcodone-ACET 5/325MG TAB PO PRN (06:45)
[2025-06-03 07:04] LABS: Hematocrit 44.2 % (36.0-46.0); Hemoglobin 14.2 g/dL (12.2-16.2); Mean Corpuscular Hemoglobin 26.4 pg (28.0-32.0); Mean Corpuscular Volume 82.2 fL (80.0-100.0); Nucleated Red Blood Cells % 0.1 %
[2025-06-03 07:17] LABS: Alanine Aminotransferase 24 U/L (7-40); Albumin 4.3 g/dL (3.2-4.8); Alkaline Phosphatase 95 U/L (46-116); Anion Gap 14 (5-15); BUN/Creatinine Ratio 10.1 (10.0-20.0); Bilirubin, Total 0.7 mg/dL (0.2-1.0); Blood Urea Nitrogen 16 mg/dL (9-23); Calcium 9.1 mg/dL (8.7-10.4); Carbon Dioxide 21 mmol/L (20-31); Chloride 101 mmol/L (98-107); Potassium 4.3 mmol/L (3.5-5.1); Total Protein 7.1 g/dL (5.7-8.2)
[2025-06-03 07:18] LABS: Glucose 257 mg/dL (74-106); Sodium 136 mmol/L (136-145)
[2025-06-03] MEDS: LISINOPRIL 5 MG TAB PO SCH (10:00)
[2025-06-03] MEDS: METOPROLOL SUCCINATE XL 50 MG TAB PO SCH (10:00)
[2025-06-03] MEDS: ENOXAPARIN SOD 40 MG/0.4 ML SYRINGE SC SCH (10:19)
[2025-06-03] MEDS: ONDANSETRON ODT 4 MG TAB PO PRN (13:15)
--- NOTE | 2025-06-03 13:21 | DVHPN2 ---
Subjective Having some back pain Reviewed: H&P Changes from previous H/P or p: No Changes Objective Vitals Vital Signs Date Time Temp Pulse Resp B/P (MAP) Pulse Ox O2 Delivery O2 Flow Rate FiO2 06/03/25 11:00 82 15 90/51 (64) 95 06/03/25 08:00 98.6 98.6 06/03/25 08:00 Nasal Cannula* 2 28 General Appearance: Alert, Oriented X3 HEENT: Atraumatic Cardiovascular: Regular rate, Normal S1, Normal S2 Abdomen: Normal bowel sounds Medications Current Medications Medications Dose Ordered Sig/Feng Route Start Time Stop Time Status Last Admin Dose Admin Acetaminophen 650 mg Q6HP PRN PO 06/02/25 13:15 Acetaminophen/ Hydrocodone Bitart 1 tab Q4HP PRN PO 06/02/25 13:15 06/03/25 06:45 1 TAB Morphine Sulfate 2 mg Q4HPRN PRN IV 06/02/25 13:30 06/03/25 00:17 2 MG Enoxaparin Sodium 40 mg DAILY SC 06/03/25 10:00 06/03/25 10:19 40 MG Nitroglycerin 0.4 mg Q5MINP PRN SL 06/02/25 13:15 06/03/25 04:04 0.4 MG Diagnostic Test (Pha) 1 strip ACHS 06/02/25 17:00 06/03/25 12:08 1 STRIP Insulin Human Regular ACHS SC 06/02/25 17:00 06/03/25 12:09 3 UNITS Dextrose 50 ml UD PRN IV 06/02/25 13:45 Mesalamine 800 mg BID PO 06/02/25 22:00 06/03/25 10:19 800 MG Pantoprazole Sodium 40 mg DAILY@0600 PO 06/03/25 06:00 06/03/25 06:38 40 MG Aspirin 81 mg DAILY PO 06/02/25 14:30 06/03/25 10:19 81 MG Insulin Glargine 20 units BID@1000,2200 SC 06/02/25 22:00 06/03/25 10:21 20 UNITS Metoprolol Succinate 25 mg DAILY PO 06/03/25 10:00 Lisinopril 10 mg DAILY PO 06/03/25 10:00 Ondansetron HCl 4 mg Q4HP PRN PO 06/03/25 11:45 06/03/25 13:15 4 MG Laboratory Results Laboratory Tests 06/03/25 06:10 Chemistry Test 06/03/25 06:10 Albumin 4.3 g/dL (3.2-4.8) Calcium Level 9.1 mg/dL (8.7-10.4) Total Protein 7.1 g/dL (5.7-8.2) LFT Test 06/03/25 06:10 Alanine Aminotransferase (ALT) 24 U/L (7-40) Alkaline Phosphatase 95 U/L (46-116) Aspartate Amino Transferase (AST) 22 U/L (13-40) Total Bilirubin 0.7 mg/dL (0.2-1.0) Urinalysis Test 06/02/25 12:18 Urine Color Yellow (Yellow) Urine Clarity Ex.turbid (Clear) Urine pH 5.5 (5.0-9.0) Urine Specific [place] 1.035 (1.001-1.035) Urine Protein 2+ (Negative) H Urine Ketones Trace (Negative) Urine Blood Negative /uL (Negative) Urine Nitrite Negative (Negative) Urine Bilirubin 1+ (Negative) H Urine Urobilinogen 2 mg/dL (Negative) H Urine Leukocyte Esterase 2+ /uL (Negative) Urine RBC 1 /hpf (0 - 4) Urine Microscopic WBC 80 /HPF (0-5) H Urine Squamous Epithelial Cells Many /hpf (<5) Urine Bacteria Few /hpf (None Seen) H Urine Hyaline Casts Few /lpf (0 - 2) Urine Mucus Few (None Seen) Urine Yeast (Budding) Few /hpf (None Seen) Urine Glucose 1+ mg/dL (Normal) H Assessment/Plan Assessment/Plan #Rule out ACS #Chest pain # Rule out Unstable angina Given exertional chest pressure, cardiovascular risk factors, and need to rule out ACS despite negative initial markers. continuous telemetry, continue aspirin, optimize BP control,, repeat ECG with symptoms. # Chronic diastolic heart failure Known diagnosis with mild peripheral edema but no acute decompensation signs. Continue home regimen, monitor I/O and daily weights, maintain BP control and avoid excessive fluids. # Moderate aortic stenosis Echo from January 2025 shows valve area 1.5 cm with preserved EF. No need to repeat echo now; continue surveillance and avoid hypotension; notify cardiology if symptoms worsen. # Hypertension BP elevated at arrival but improved without intervention. Resume home antihypertensives as tolerated, monitor closely on telemetry, adjust regimen if persistent elevation. # Type 2 diabetes mellitus poorly controlled A1c 10.3 indicates significant chronic hyperglycemia. Adjust inpatient insulin regimen, hold semaglutide during admission, implement ACHS glucose monitoring, diabetic diet. # Hyperlipidemia Chronic condition managed with statin therapy. Continue atorvastatin and reinforce secondary prevention measures. # Ulcerative colitis Stable without flare symptoms. Continue home mesalamine; monitor for abdominal pain or GI symptoms during admission. # Narcolepsy with cataplexy Chronic condition, stable. Plan discussed with: Patient My Orders Orders - ELIZ HONEYCUTT MD Procedure Category Date Status Time Ondansetron Po PHA 06/03/25 In Process (Zofran Po) 11:45 Date of Service: Jun 03, 2025 Billing Provider: ELIZ HONEYCUTT MD Common Visit Codes: [id number] INP/OBS CARE(HIGH) ELIZ HONEYCUTT MD Jun 03, 2025 13:21
[2025-06-04 01:00] VITALS: BP 106/48; PULSE 73; RESP 18; TEMP 98.1; O2SAT 98
[2025-06-04 05:00] VITALS: BP 102/58; PULSE 79; RESP 16; TEMP 98.1; O2SAT 97
[2025-06-04 07:50] VITALS: PULSE 98; RESP 17; O2SAT 97
[2025-06-04 08:00] VITALS: PULSE 96
[2025-06-04 08:34] VITALS: BP 113/63; PULSE 98; RESP 17; TEMP 97.3; O2SAT 97
[2025-06-04] MEDS: HYDROcodone-ACET 10/325MG TAB PO PRN (10:37)
[2025-06-04 13:00] VITALS: BP 130/88; PULSE 91; RESP 17; TEMP 98.2; O2SAT 95
== END 2025-06-04 13:15 | disposition home or self-care (01) | DRG 917 ==
LOC: EDUNIT# 07:47 → EDBD 07:47 → ER 07:47 → OVERFLOW 13:02 → TELE-CENTR 06-03 15:42
PROVIDERS: ADMIT Hospitalist; ATTEND Hospitalist
DX: T40.421A Poisoning by tramadol, accidental (unintentional), initial encounter (principal); G92.8 Other toxic encephalopathy; I24.9 Acute ischemic heart disease, unspecified; I50.32 Chronic diastolic (congestive) heart failure; I11.0 Hypertensive heart disease with heart failure; E11.65 Type 2 diabetes mellitus with hyperglycemia; G47.411 Narcolepsy with cataplexy; I35.0 Nonrheumatic aortic (valve) stenosis; K51.90 Ulcerative colitis, unspecified, without complications; E78.5 Hyperlipidemia, unspecified; I25.10 Atherosclerotic heart disease of native coronary artery without angina pectoris; G43.909 Migraine, unspecified, not intractable, without status migrainosus; G47.30 Sleep apnea, unspecified; G89.29 Other chronic pain; M54.50 Low back pain, unspecified; Z86.73 Personal history of transient ischemic attack (TIA), and cerebral infarction without residual deficits; Z88.2 Allergy status to sulfonamides; Z88.8 Allergy status to other drugs, medicaments and biological substances; Z79.84 Long term (current) use of oral hypoglycemic drugs; Z79.82 Long term (current) use of aspirin; Z79.899 Other long term (current) drug therapy; Z79.4 Long term (current) use of insulin; Z90.49 Acquired absence of other specified parts of digestive tract
CPT/HCPCS: 36415; 71045; 80048; 80053; 80076; 80307; 81001; 82962; 83036; 83880; 84484; 85025; 93005; G0378; J1815; J2405; Q0162

== ENCOUNTER 2025-06-04 16:06 | Inpatient (IN) | payer MEDICARE, BC, MEDICAID ==
[~2025-06-04] VITALS: Ht 162.6 cm; Wt 129.0 kg
[2025-06-04 16:58] VITALS: PULSE 102; RESP 18; O2SAT 98
--- NOTE | 2025-06-04 17:11 | ED.PDOC ---
HPI Comments HPI: [place] 65 y.o female presents to the ED via EMS for an overdose. Patient reports being seen earlier today at this hospital for chest pain that has been ongoing x 3 days. Patient states s/p being discharged, she got home and took 7 Ativan (0.5mg each) and 7 Tramadol (50mg each) to treat pain since it was still present. Patient states no alleviating factors for pain. At bedside, difficult to arouse patient and was only arousable with hard sternal rub x 1. Patient is now awake and alert x 4. Per EMS patient was also alert and oriented x4. Initial Vitals BP: 150/85 HR: 112 RR: 12 O2 Sat: 98% RA Temp: 97.9 F Past Medical history: Angina, CAD, HLD, DM, HTN Past Surgical history: Cervical spinal fusion, laminectomy, right ankle, left shoulder replacement, cholecystectomy, appendectomy, x 2, hernia repair, and tubal ligation Social History: Denies smoking, ETOH, and drug use. Allergies: Indomethacin, sulfa antibiotics, and sulfa drugs HPI: Poor Historian. HADDOX: Overdose of tramadol and Ativan. Responsive to painful stimuli back to her baseline able to answer all questions. Complains of chest pain. Obese. Pupils are reactive to light. Dry oral mucosa. Patient received Narcan 4 mg prior to arrival. REVIEW OF SYSTEMS: CONSTITUTIONAL: Denies acute: fever, diaphoresis, chills, HEAD: Denies acute: headache, photophobia Eyes: Denies acute: Double vision, vision loss, eye pain, eye discharge. EARS: Denies acute: tinnitus, hearing loss, ear discharge, ear pain, THROAT: Denies acute: sore throat, swelling, difficulty swallowing , pain with swallowing, change in voice. NECK: Denies acute: neck pain, neck swelling, stiff neck. HEART: Denies acute : , palpitations, LUNGS: Denies acute: SOB, wheezing, cough, hemoptysis ABDOMEN: Denies acute: abdominal pain, Nausea, Vomiting, diarrhea, melena , hematemesis, hematochezia SKIN: Denies acute: rash, redness, lesions, itchiness. EXTREMITIES: Denies acute: calf pain, numbness, tingling, weakness, denies pain in extremity. Denies acute: Low back pain. Neuro: Denies acute: focal neurological deficit, motor or sensory focal neurological deficit, tremors, seizure like activity, confusion, dizziness, change in mental status, loss of bowel or bladder function, cauda equina like symptoms. : Denies acute: dysuria, hematuria, flank pain, increase in urinary frequency. PSYCH: Denies acute: hallucination, suicidal ideation, homicidal ideation. FEMALE: Denies acute: abnormal vaginal bleeding, foul odor, unusual discharge. PHYSICAL EXAM: General: ----mild----acute distress, awake and alert. Head: normocephalic, atraumatic. No raccoon's eyes, no falk sign. Neck: supple, trachea is midline, no swelling. Throat: Normal phonation. Dry oral mucosa Eyes:, no erythema, no purulent discharge, no proptosis, no icterus. Heart: regular rate, regular rhythm, no significant murmur appreciated. Lungs: no apparent respiratory distress, Able to speak in full sentences. No wheezing, no rhonchi, no crackles. No stridors Clear to auscultation bilaterally. Abdomen: non tender to palpation, non distended, soft, no guarding, no rebound, + bowel sounds. Morbidly obese Neuro: Awake, Alert, oriented to name, self, situation, follows commands GCS=15. Speech is normal. Skin: no petechia, no purpura, no cyanosis, non-pale, not jaundice. Lower extremities: --trace - Pitting edema no deformity, no focal swelling, no calf TTP. Makes eye contact. moves all four extremities. Face: no apparent facial droop. [facility] ED COURSE: DISCLAIMER: This medical document was created using an electronic medical record system with voice recognition software and computerized dictation system. Although this document has been carefully reviewed, there might still be some phonetic and typographical errors. Occasional wrong-word or "sound-alike" substitutions may have occurred due to the inherent limitations of voice recognition software. The se areas are purely typographical due to imperfections of the software programs and do not reflect any compromise in the patient's medical care. Please read the chart carefully and recognize, using context, where these substitutions have occurred. `` Chief Complaint: Overdose Time Seen by MD: 16:56 Primary Care Provider: BRIDGETTE Reviewed Notes: Allergies Allergies: Coded Allergies: Sulfa Drugs (Verified Allergy, Mild, rash, 08/13/24) Sulfa Antibiotics (Unverified Allergy, Unknown, 09/05/24) Indomethacin (Verified Adverse Reaction, Mild, migraine, 08/13/24) Home Meds Active Scripts Isosorbide Mononitrate (Isosorbide Mononitrate Er) 30 Mg Tab, 1 TAB PO DAILY for 30 Days, #30 TAB 5 Refills Prov:JUSTIN ONTIVEROS BUTCHERETTE 03/14/25 Tramadol HCl (Tramadol HCl) 50 Mg Tab, 50 MG PO TID PRN, #30 TAB Prov:CECILIA BRITO MD 10/07/24 Lorazepam (ATIVAN TABLET) 0.5 Mg Tb, 1 TAB PO TID PRN, #30 TAB Prov:CECILIA BRITO MD 10/07/24 Gabapentin (Gabapentin) 300 Mg Cap, 300 MG PO TID for 30 Days, #90 CAP 3 Refills Prov:SETH TAO DO 08/16/24 Reported Medications Duloxetine HCl (Duloxetine HCl) 60 Mg Cap, 1 CAP PO DAILY for 30 Days, #30 06/03/25 Estradiol Vaginal (Estradiol) 0.1 Mg/Gm Cre, MG VG DAILY for 21 Days, #42.5 06/03/25 Tirzepatide (Mounjaro) 5 Mg/0.5 Ml Inj, 5 MG SC QWEEKLY for 28 Days, #2 06/03/25 Insulin Glargine-Yfgn (Insulin Glargine) 100 Unit/Ml Inj, 0-80 UNIT SC BID for 28 Days, #45 06/03/25 Insulin Regular (Human) (Novolin R Flexpen) 100 Unit/Ml Inj, UNITS SC UD for 33 Days, #15 06/03/25 Metoprolol Tartrate (Lopressor) 25 Mg Tb, 1 TAB PO BID for 30 Days, #60 06/03/25 Atorvastatin Calcium (ATORVASTATIN CALCIUM) 40 Mg Tab, 1 TAB PO HS for 90 Days, #90 01/27/25 Omeprazole (Gnp Omeprazole) 20 Mg Tab, 20 MG PO DAILY, TAB 12/04/24 Aspirin (Aspirin Low Dose) 81 Mg Chw, 81 MG PO DAILY, TAB.CHEW 12/04/24 Semaglutide (Ozempic) 4 Mg/3 Ml Inj, 2 MG SC QWEEKLY, INJ 09/05/24 Mesalamine (Mesalamine Dr) 400 Mg Cap, 2 CAP PO BID 09/05/24 Pitolisant Hydrochloride (Wakix) 17.8 Mg Tab, 2 TAB PO DAILY for NARCOLEPSY for 90 Days, #180 11/02/21 Lisinopril (Lisinopril) 10 Mg Tab, 10 MG PO DAILY for 30 Days, MG 07/26/16 Information Source: Patient Mode of Arrival: Ambulatory Was a procedure done? Was a procedure done?: No CP Differential Dx Differential Diagnosis: Angina, Other, N/A Differential Diagnosis: Angina, Aortic dissection, Cholelithiasis, Costochondritis, Gastritis, Pericarditis, Other (Ddx include but not limitied to gastritis, musculoskeletal pain, radiculopathy, atypical chest pain, dissection, aneurysm, ACS, unstable angina, hiatal hernia, GERD, anxiety, costochondritis, PE, pneumothroax, neoplasm, cardiac ischemia, drug abuse, anemia.) Comment X-Ray, Labs, Meds, VS Vital Signs Date Time Temp Pulse Resp B/P (MAP) Pulse Ox O2 Delivery O2 Flow Rate FiO2 06/04/25 20:21 98.1 98 18 107/64 (78) 97 98.1 06/04/25 19:19 100 18 94/41 (58) 95 06/04/25 16:58 98.5 103 16 124/62 (82) 98 98.5 06/04/25 16:58 102 18 98 Nasal Cannula* 4 36 06/04/25 16:15 97.9 112 12 150/85 98 97.9 Lab Test 06/04/25 20:40 06/04/25 18:37 06/04/25 17:37 Range/Units Troponin I High Sensitivity 5 5 6 </=34 ng/L White Blood Count 5.9 # 4.4-10.8 10^3/uL Red Blood Count 4.89 4.0-5.20 10^6/uL Hemoglobin 13.0 12.2-16.2 g/dL Hematocrit 39.9 36.0-46.0 % Mean Corpuscular Volume 81.7 80.0-100.0 fL Mean Corpuscular Hemoglobin 26.7 L 28.0-32.0 pg Mean Corpuscular Hemoglobin Concent 32.6 32.0-36.0 g/dL Red Cell Distribution Width 15.7 H 11.8-14.3 % Platelet Count 202 140-450 10^3/uL Mean Platelet Volume 8.3 6.9-10.8 fL Neutrophils (%) (Auto) 71.5 37.0-80.0 % Lymphocytes (%) (Auto) 18.6 10.0-50.0 % Monocytes (%) (Auto) 8.3 0.0-12.0 % Eosinophils (%) (Auto) 1.2 0.0-7.0 % Basophils (%) (Auto) 0.4 0.0-2.0 % Neutrophils # (Auto) 4.2 1.6-8.6 10 ^3/uL Lymphocytes # (Auto) 1.1 0.4-5.4 10 ^3/uL Monocytes # (Auto) 0.5 0-1.3 10 ^3/uL Eosinophils # (Auto) 0.1 0-0.8 10 ^3/uL Basophils # (Auto) 0 0-0.2 10 ^3/uL Nucleated Red Blood Cells 0.0 % Sodium Level 138 136-145 mmol/L Potassium Level 3.7 3.5-5.1 mmol/L Chloride Level 103 98-107 mmol/L Carbon Dioxide Level 26 20-31 mmol/L Anion Gap 9 5-15 Blood Urea Nitrogen 9 9-23 mg/dL Creatinine 0.68 # 0.550-1.02 mg/dL Glomerular Filtration Rate Calc 96 >90 mL/min BUN/Creatinine Ratio 13.2 10.0-20.0 Serum Glucose 247 H 74-106 mg/dL Calcium Level 8.9 8.7-10.4 mg/dL Total Bilirubin 0.5 0.2-1.0 mg/dL Aspartate Amino Transferase (AST) 21 13-40 U/L Alanine Aminotransferase (ALT) 23 7-40 U/L Alkaline Phosphatase 88 46-116 U/L B-Type Natriuretic Peptide 30.59 0-100 pg/mL Total Protein 6.5 5.7-8.2 g/dL Albumin 4.0 3.2-4.8 g/dL Salicylates Level < 3.0 -30 mg/dL Acetaminophen Level < 2.0 L 10.0-20.0 UG/ML Time of 1ST Reevaluation: 17:03 Reevaluation 1ST: Unchanged Patient Education/Counseling: Diagnosis, Treatment Family Education/Counseling: No Family Present Comments MDM: patient presented with the above HPI.---overdose and chest pain---workup was initiated. patient was found with the above mentioned diagnosis. the following medications were ordered: please refer to order lists of meds and tests obtained by myself Dr. Cloud. Patient ED course and VS have been stabilized. Patient has been reassessed in the ED and remained in a stable condition. Pertinent incidental findings were discussed with the patient and/or family. Patient/family voices understanding and is agreeable with plan. Patient has been observed in the ED adequate length of time to insure improvement/stability. Escalation of care considered: Consideration of escalation to observation or admission Patient was ADMITTED to the medicine team for further evaluation and treatment of their presentation. All the reports of any imaging studies that were ordered by myself were reviewed by myself. Departure 1 Departure Time of Disposition: 17:15 Impression: Primary Impression: Chest pain Additional Impressions: Mild tramadol abuse Ativan use disorder, moderate Disposition: 09 ADMITTED INPATIENT Admit to: Tele Condition: Guarded Discharged With: Self Critical Care Note Critical Care Time?: No Heart Score Heart Score: Heart Score Response (Comments) Value History Moderate Suspicious 1 EKG Normal 0 Age >65 2 Risk Factors 1 or 2 risk factors 1 Troponin Normal limit 0 Total 4 I personally scribed for SHONA CLOUD DO ([email or web address]) on 06/04/25 at 17:11. Electronically submitted by Marianne Gee ([employer] I personally scribed for SHONA CLOUD DO ([email or web address]) on 06/04/25 at 20:42. Electronically submitted by Marianne Gee ([employer] SHONA CLOUD DO Jun 04, 2025 17:11
[2025-06-04] MEDS: SODIUM CHLORIDE 0.9% 1,000 ML IV ONE (17:34)
--- NOTE | 2025-06-04 17:46 | DVH ---
INDICATION: CP TECHNIQUE: Frontal view of the chest. COMPARISON: XY CHEST PORTABLE on DOS: 06/02/25, XY CHEST TWO VIEWS ROUTINE on DOS: 03/12/25, XY CHEST PORTABLE on DOS: 02/26/25, CT CT ANGIO CHEST CONTRAST on DOS: 01/29/25, XY CHEST XRAY 1 VIEW on DOS: 01/27/25 FINDINGS/IMPRESSION: The lungs are clear. The cardiomediastinal silhouette is enlarged, likely accentuated by technique. No pleural effusion or pneumothorax. Unchanged osseous structures. Spinal stimulator leads are partially visualized. Cervical fusion hardware is noted.
[2025-06-04 18:21] LABS: Hematocrit 39.9 % (36.0-46.0); Hemoglobin 13.0 g/dL (12.2-16.2); Mean Corpuscular Hemoglobin 26.7 pg (28.0-32.0); Mean Corpuscular Volume 81.7 fL (80.0-100.0); Nucleated Red Blood Cells % 0.0 %
[2025-06-04 18:41] LABS: Alanine Aminotransferase 23 U/L (7-40); Albumin 4.0 g/dL (3.2-4.8); Alkaline Phosphatase 88 U/L (46-116); Anion Gap 9 (5-15); BUN/Creatinine Ratio 13.2 (10.0-20.0); Bilirubin, Total 0.5 mg/dL (0.2-1.0); Blood Urea Nitrogen 9 mg/dL (9-23); Calcium 8.9 mg/dL (8.7-10.4); Carbon Dioxide 26 mmol/L (20-31); Chloride 103 mmol/L (98-107); Glucose 247 mg/dL (74-106); Potassium 3.7 mmol/L (3.5-5.1); Sodium 138 mmol/L (136-145); Total Protein 6.5 g/dL (5.7-8.2)
[2025-06-04] MEDS ORDERED: DOCUSATE SOD 100 MG CAP PO PRN (20:45)
[2025-06-04] MEDS ORDERED: ACETAMINOPHEN 325 MG TAB PO PRN (20:45)
[2025-06-04] MEDS: SODIUM CHLORIDE 0.9% 1,000 ML IV SCH (20:45)
[2025-06-04] MEDS ORDERED: ONDANSETRON HCL 4 MG/2 ML VIAL IV PRN (20:45)
[2025-06-04] MEDS ORDERED: DEXTROSE (50%) 50ML SYRG IV PRN (20:45)
[2025-06-04] MEDS ORDERED: MORPHINE SULFATE INJ 2 MG/ml SYRG IV PRN (21:00)
[2025-06-04] MEDS ORDERED: NITROGLYCERIN 0.4 MG SL TAB SL PRN (21:00)
--- NOTE | 2025-06-04 21:01 | DVHHP2 ---
History of Present Illness Reason for Visit: Chest pain History of Present Illness The patient is a 65-year-old female with past medical history of Coronary artery disease, hyperlipidemia, DM, hypertension, depression, and angina who presented to [facility] ED for evaluation of drug overdose. Patient reports she has been experiencing chest pain for the past 3 days and was seen at this hospital today. Patient was discharged home, but continued to experience body pain, so she took 7 tramadol 50 mg and 7 Ativan 0.5 mg to relief pain since it was still present. Patient became altered, difficult to arouse, arousable with hard sternal rub. Patient was seen and evaluated in the ED, laboratory data s hows WBC 5.9, platelets 202, sodium 138, potassium 3.7, BUN 9, creatinine 0.68, GFR 96, glucose 247, calcium 8.9, BNP 30.59, troponin 5, blood pressure 107/64, heart rate 98, temperature 98.1 F, O2 saturation 97% on oxygen. Please see medication orders section in the computer. On my assessment, patient is awake, alert oriented x4, denied chest pain, no headache, dizziness, diaphoresis, shortness of breaths, no diarrhea, nausea, vomiting, fever, no chills. Patient was admitted for further evaluation and medical management. Past Medical History Angina, CAD, HLD, DM, HTN, Depression Past Surgical History Cervical spinal fusion, laminectomy, Right ankle, left shoulder replacement, Cholecystectomy, Appendectomy, x 2, Hernia repair, and Tubal ligation Family History Reviewed, noncontributory to the management of this case. Past Social History The patient lives at home, denies smoking, alcohol or illicit drugs abuse. Review of Systems Constitutional: Yes: Weakness; No: Fever, Chills, Sweats, Malaise, Other Eyes: No: Pain, Vision change, Conjunctivae inflammation, Eyelid inflammation, Other, Redness ENT: No: Ear pain, Ear discharge, Nose pain, Nose discharge, Nose congestion, Mouth pain, Mouth swelling, Throat pain, Throat swelling, Other Respiratory: No: Cough, Dry, Shortness of breath, SOB with excertion, Wheezing, Hemoptysis, Pleuritic Pain, Sputum, Wheezing, Other Cardiovascular: Chest Pain; No: Palpitations, Orthopnea, Paroxysmal Noc. Dyspnea, Edema, Lt Headedness, Other Gastrointestinal: No: Nausea, Vomiting, Abdominal Pain, Diarrhea, Constipation, Melena, Hematochezia, Other Genitourinary: No Dysuria, No Frequency, No Incontinence, No Hematuria, No Retention, No Other Musculoskeletal: No: other, neck pain, shoulder pain, arm pain, back pain, hand pain, leg pain, foot pain Skin: No: Rash, Lesions, Jaundice, Bruising, Other Neurological: Other (Altered level of consciousness); No: Weakness, Numbness, Incoordination, Change in speech, Confusion, Seizures Allergies: Coded Allergies: Sulfa Drugs (Verified Allergy, Mild, rash, 08/13/24) Sulfa Antibiotics (Unverified Allergy, Unknown, 09/05/24) Indomethacin (Verified Adverse Reaction, Mild, migraine, 08/13/24) Medications Current Medications Medications Dose Ordered Sig/Feng Route Start Time Stop Time Status Last Admin Dose Admin Aspirin 81 mg DAILY PO 06/05/25 10:00 UNV Atorvastatin Calcium 40 mg HS PO 06/04/25 22:00 UNV Gabapentin 300 mg TID PO 06/04/25 22:00 UNV Lisinopril 10 mg DAILY PO 06/05/25 10:00 UNV Famotidine 20 mg DAILY PO 06/05/25 10:00 UNV Duloxetine HCl 60 mg DAILY PO 06/05/25 10:00 UNV Metoprolol Tartrate 25 mg BID PO 06/04/25 22:00 UNV Clonidine HCl 0.1 mg Q4HP PRN PO 06/04/25 20:45 UNV Diagnostic Test (Pha) 1 strip ACHS 06/04/25 22:00 UNV Insulin Human Regular HS SC 06/04/25 22:00 UNV Insulin Human Regular AC SC 06/05/25 07:00 UNV Dextrose 50 ml UD PRN IV 06/04/25 20:45 UNV Sodium Chloride 1,000 ml @ 60 mls/hr [id number] IV 06/04/25 20:45 UNV Acetaminophen/ Hydrocodone Bitart 1 tab Q4HP PRN PO 06/04/25 20:45 UNV Ondansetron HCl 4 mg Q4HP PRN IV 06/04/25 20:45 UNV Docusate Sodium 100 mg BIDPRN PRN PO 06/04/25 20:45 UNV Acetaminophen 650 mg Q6HP PRN PO 06/04/25 20:45 UNV Exam Vital Signs Vital Signs Date Time Temp Pulse Resp B/P (MAP) Pulse Ox O2 Delivery O2 Flow Rate FiO2 06/04/25 20:21 98.1 98 18 107/64 (78) 97 98.1 06/04/25 16:58 Nasal Cannula* 4 36 General Appearance: Alert, Oriented X3, Cooperative, No acute distress HEENT: Atraumatic, PERRLA, EOMI, Mucous membr. moist/pink Respiratory: Normal air movement Cardiovascular: Regular rate, Normal S1, Normal S2, No murmurs Abdominal: Normal bowel sounds, Soft, No tenderness, No hepatospenomegaly, No masses Extremities: No clubbing, No cyanosis, No edema, Normal pulses, No tenderness/swelling Skin: No rashes, No significant lesion Neuro: Normal speech, Normal tone, Sensation intact, Cranial nerves 3-12 NL, Reflexes 2+, Other (Generalized weakness) Psych/Mental Status: Mental status NL, Mood NL Labs/Xrays Labs Test 06/04/25 20:40 06/04/25 17:37 Range/Units White Blood Count 5.9 # 4.4-10.8 10^3/uL Red Blood Count 4.89 4.0-5.20 10^6/uL Hemoglobin 13.0 12.2-16.2 g/dL Hematocrit 39.9 36.0-46.0 % Mean Corpuscular Volume 81.7 80.0-100.0 fL Mean Corpuscular Hemoglobin 26.7 L 28.0-32.0 pg Mean Corpuscular Hemoglobin Concent 32.6 32.0-36.0 g/dL Red Cell Distribution Width 15.7 H 11.8-14.3 % Platelet Count 202 140-450 10^3/uL Mean Platelet Volume 8.3 6.9-10.8 fL Neutrophils (%) (Auto) 71.5 37.0-80.0 % Lymphocytes (%) (Auto) 18.6 10.0-50.0 % Monocytes (%) (Auto) 8.3 0.0-12.0 % Eosinophils (%) (Auto) 1.2 0.0-7.0 % Basophils (%) (Auto) 0.4 0.0-2.0 % Neutrophils # (Auto) 4.2 1.6-8.6 10 ^3/uL Lymphocytes # (Auto) 1.1 0.4-5.4 10 ^3/uL Monocytes # (Auto) 0.5 0-1.3 10 ^3/uL Eosinophils # (Auto) 0.1 0-0.8 10 ^3/uL Basophils # (Auto) 0 0-0.2 10 ^3/uL Nucleated Red Blood Cells 0.0 % Sodium Level 138 136-145 mmol/L Potassium Level 3.7 3.5-5.1 mmol/L Chloride Level 103 98-107 mmol/L Carbon Dioxide Level 26 20-31 mmol/L Anion Gap 9 5-15 Blood Urea Nitrogen 9 9-23 mg/dL Creatinine 0.68 # 0.550-1.02 mg/dL Glomerular Filtration Rate Calc 96 >90 mL/min BUN/Creatinine Ratio 13.2 10.0-20.0 Serum Glucose 247 H 74-106 mg/dL Calcium Level 8.9 8.7-10.4 mg/dL Total Bilirubin 0.5 0.2-1.0 mg/dL Aspartate Amino Transferase (AST) 21 13-40 U/L Alanine Aminotransferase (ALT) 23 7-40 U/L Alkaline Phosphatase 88 46-116 U/L B-Type Natriuretic Peptide 30.59 0-100 pg/mL Total Protein 6.5 5.7-8.2 g/dL Albumin 4.0 3.2-4.8 g/dL PATIENT: ELVIS CONCEPCION ACCT: [id number] UNIT: [id number] : 1960 LOC: ER ROOM / BED: / AGE / SEX: 65 / F ADM STATUS: REG ER SERVICE 1711 ORDERING PHYSICIAN: SHONA CLOUD DO PROCEDURE(s): CXRP - CHEST PORTABLE REASON: CP ORDER NUMBER(s): [id number], ACCESSION NUMBER(s): [id number] INDICATION: CP TECHNIQUE: Frontal view of the chest. COMPARISON: XY CHEST PORTABLE on DOS: 06/02/25, XY CHEST TWO VIEWS ROUTINE on DOS: 03/12/25, XY CHEST PORTABLE on DOS: 02/26/25, CT CT ANGIO CHEST CONTRAST on DOS: 01/29/25, XY CHEST XRAY 1 VIEW on DOS: 01/27/25 FINDINGS/IMPRESSION: The lungs are clear. The cardiomediastinal silhouette is enlarged, likely accentuated by technique. No pleural effusion or pneumothorax. Unchanged osseous structures. Spinal stimulator leads are partially visualized. Cervical fusion hardware is noted. SEPSIS Sepsis Screen Date sepsis recognized/suspect: Jun 04, 2025 Time Sepsis recognized/suspect: 2021 Recent Procedure: No On Antibiotic Therapy: No Respiratory Rate >20: No Heart Rate >90: No Temp<36 C (96.8 F) or >38.3 C: No SBP <90 or MAP <65 mmHG: No New Acute Mental Status Change: No Is the patient on CPAP, BIPAP,: No Physician Orders [employer]ipe [employer] Operator (06/04/25 ) Chest Portable (06/04/25 17:11) Electrocardigram (06/04/25 17:11) Troponin-I Hs (06/04/25 20:11) Electrocardigram (06/04/25 18:11) Electrocardigram (06/04/25 20:11) Consistent Carb(Ccho)Diabetes (06/05/25 Breakfast) Aspirin Chewable Tablet (06/05/25 10:00) Atorvastatin (Lipitor) (06/04/25 22:00) Gabapentin Capsule (Neurontin Capsule) (06/04/25 22:00) Lisinopril Tablet (Zestril Tablet) (06/05/25 10:00) Famotidine Tablet (Pepcid Tablet) (06/05/25 10:00) Duloxetine Hcl Capsule (Cymbalta Capsule (06/05/25 10:00) Metoprolol Tartrate Tablet (Lopressor Ta (06/04/25 22:00) Clonidine Hcl Tablet (Catapres Tablet) (06/04/25 20:45) Glucose Blood (Accu-Chek Comfort Curve T (06/04/25 22:00) Insulin R (Human) (Insulin R) (06/04/25 22:00) Insulin R (Human) (Insulin R) (06/05/25 07:00) Dextrose 50% Syringe (06/04/25 20:45) Allergies (06/04/25 20:37) Code Status (06/04/25 20:37) Sodium Chloride 0.9% (06/04/25 20:45) Oxygen Per Hour (06/04/25 20:37) Hydrocodone-Acet 5/325mg Tab ([place] 5/32 (06/04/25 20:45) Ondansetron Hcl (Zofran) (06/04/25 20:45) Docusate Sodium Capsule (Colace Capsule) (06/04/25 20:45) Fall Risk Precautions In Place QSHIFT (06/04/25 20:37) Complete Blood Count (06/05/25 04:00) Comprehensive Metabolic Panel (06/05/25 04:00) Condition: Serious (06/04/25 20:37) Acetaminophen Tablet (Tylenol Tablet) (06/04/25 20:45) Maintain Bed Rest (06/04/25 20:37) Sequential Compression Device (06/04/25 ) Admit (06/04/25 20:59) Nitroglycerin Sublingual (Ntrostat Subli (06/04/25 21:00) Morphine Sulfate Injection (06/04/25 21:00) Stat Ekg For Chest Pain (06/04/25 20:59) Notify Md Of Changes From Base (06/04/25 20:59) Account Services Representative For 24 Hours (06/04/25 20:59) Emergency Dysrhythmia Protocol (06/04/25 20:59) Rhythm Strips Once Every Shift (06/04/25 20:59) Oxygen By Nasal Cannula (06/04/25 20:59) Vital Signs Date Time Temp Pulse Resp B/P (MAP) Pulse Ox O2 Delivery O2 Flow Rate FiO2 06/04/25 20:21 98.1 98 18 107/64 (78) 97 98.1 06/04/25 19:19 100 18 94/41 (58) 95 06/04/25 16:58 98.5 103 16 124/62 (82) 98 98.5 06/04/25 16:58 102 18 98 Nasal Cannula* 4 36 06/04/25 16:15 97.9 112 12 150/85 98 97.9 Laboratory Tests Test 06/04/25 17:37 White Blood Count 5.9 10^3/uL (4.4-10.8) # Medications Medications Dose Ordered Sig/Feng Route Start Time Stop Time Status Last Admin Dose Admin Sodium Chloride 1,000 ml @ 1,000 mls/hr Q1H ONCE IV 06/04/25 17:15 06/04/25 18:14 DC 06/04/25 17:34 1,000 MLS/HR Assessment/Plan Assessment/Plan Mild tramadol abuse Chest pain Ativan use disorder, moderate Diabetes mellitus with hyperglycemia Plan 1. Admit to telemetry unit 2. Breathing treatment 3. Pain control management 4. Management of fluids and electrolytes 5. Consultation for hospitalist 6. Diagnostic tests chest x-ray 7. DVT prophylaxis-on SCDs 8. Repeat labs CBC, CMP in a.m. 9. Continue with current medical management 10. Treatment plan discussed with patient and RN. Patient verbalized understanding. Plan discussed with: Patient, Other (RN) My Orders Orders - CONOR PAYNE DNP Procedure Category Date Status Time Consistent DIET 06/05/25 Transmitted Carb(Ccho)Diabetes Breakfast Aspirin Chewable PHA 06/05/25 Logged Tablet 10:00 Atorvastatin (Lipitor) PHA 06/04/25 Logged 22:00 Gabapentin Capsule PHA 06/04/25 Logged (Neurontin Capsule) 22:00 Lisinopril Tablet PHA 06/05/25 Logged (Zestril Tablet) 10:00 Famotidine Tablet PHA 06/05/25 Logged (Pepcid Tablet) 10:00 Duloxetine Hcl PHA 06/05/25 Logged Capsule (Cymbalta 10:00 Metoprolol Tartrate PHA 06/04/25 Logged Tablet (Lopressor Ta 22:00 Clonidine Hcl Tablet PHA 06/04/25 Logged (Catapres Tablet) 20:45 Glucose Blood PHA 06/04/25 Logged (Accu-Chek Comfort 22:00 Insulin R (Human) PHA 06/04/25 Logged (Insulin R) 22:00 Insulin R (Human) PHA 06/05/25 Logged (Insulin R) 07:00 Dextrose 50% Syringe PHA 06/04/25 Logged 20:45 Allergies RAE 06/04/25 In Process 20:37 Code Status CODE 06/04/25 Transmitted 20:37 Sodium Chloride 0.9% PHA 06/04/25 Logged 20:45 Oxygen Per Hour RT 06/04/25 Transmitted 20:37 Hydrocodone-Acet PHA 06/04/25 Logged 5/325mg Tab ([place] 20:45 Ondansetron Hcl PHA 06/04/25 Logged (Zofran) 20:45 Docusate Sodium PHA 06/04/25 Logged Capsule (Colace 20:45 Fall Risk Precautions RAE 06/04/[address] 20:37 Complete Blood Count LAB 06/05/25 Verified 04:00 Comprehensive LAB 06/05/25 Verified Metabolic Panel 04:00 Condition: Serious [facility] 06/04/25 In Process 20:37 Acetaminophen Tablet [facility] 06/04/25 Logged (Tylenol Tablet) 20:45 Maintain Bed Rest [facility] 06/04/25 In Process 20:37 Sequential [facility] 06/04/25 In Process Compression Device Admit ADMIT 06/04/25 Transmitted 20:59 Nitroglycerin [facility] 06/04/25 Transmitted Sublingual (Ntrostat 21:00 Morphine Sulfate [facility] 06/04/25 Transmitted Injection 21:00 Stat Ekg For Chest [facility] 06/04/25 Transmitted Pain 20:59 Notify Md Of Changes [facility] 06/04/25 Transmitted From Base 20:59 Account Services Representative For [facility] 06/04/25 Transmitted 24 Hours 20:59 Emergency Dysrhythmia [facility] 06/04/25 Transmitted Protocol 20:59 Rhythm Strips Once [facility] 06/04/25 Transmitted Every Shift 20:59 Oxygen By Nasal RT 06/04/25 Transmitted Cannula 20:59 Problem List: (1) Mild tramadol abuse (2) Chest pain (3) Ativan use disorder, moderate (4) Diabetes mellitus with hyperglycemia Date of Service: Jun 04, 2025 Billing Provider: CONOR PAYNE DNP Common Visit Codes: [id number] INP/OBS CARE (HIGH) CONOR PAYNE DNP Jun 04, 2025 21:00
[2025-06-04] MEDS: HYDROcodone-ACET 5/325MG TAB PO PRN (21:12)
[2025-06-04] MEDS: ATORVASTATIN 20 MG TAB PO SCH (22:00)
[2025-06-04] MEDS: ACCU-CHEK COMFORT CURVE STRIP VI SCH (22:00)
[2025-06-04] MEDS: GABAPENTIN 300 MG CAP PO SCH (22:00)
[2025-06-04] MEDS: InsuLIN REG 1unit/0.01ml Soln (100units/ml) SC SCH (22:00)
[2025-06-04] MEDS: METOPROLOL TARTRATE 25 MG TAB PO SCH (22:00)
[2025-06-04 22:41] LABS: Acetaminophen < 2.0 UG/ML (10.0-20.0); Salicylate < 3.0 mg/dL (-30)
[2025-06-05 05:00] LABS: Hematocrit 40.9 % (36.0-46.0); Hemoglobin 13.3 g/dL (12.2-16.2); Mean Corpuscular Hemoglobin 26.8 pg (28.0-32.0); Mean Corpuscular Volume 82.2 fL (80.0-100.0); Nucleated Red Blood Cells % 0.3 %
[2025-06-05 05:19] LABS: Alanine Aminotransferase 20 U/L (7-40); Albumin 4.0 g/dL (3.2-4.8); Alkaline Phosphatase 88 U/L (46-116); Anion Gap 9 (5-15); BUN/Creatinine Ratio 9.5 (10.0-20.0); Bilirubin, Total 0.5 mg/dL (0.2-1.0); Calcium 9.0 mg/dL (8.7-10.4); Carbon Dioxide 25 mmol/L (20-31); Chloride 106 mmol/L (98-107); Potassium 4.0 mmol/L (3.5-5.1); Sodium 140 mmol/L (136-145); Total Protein 6.6 g/dL (5.7-8.2)
[2025-06-05 05:30] LABS: Blood Urea Nitrogen 6 mg/dL (9-23); Glucose 181 mg/dL (74-106)
[2025-06-05] MEDS: InsuLIN REG 1unit/0.01ml Soln (100units/ml) SC SCH (06:22)
[2025-06-05 07:15] VITALS: PULSE 95; RESP 17; O2SAT 98
[2025-06-05 09:00] VITALS: BP 131/76; PULSE 93; RESP 19; TEMP 98.7; O2SAT 96
[2025-06-05 09:30] VITALS: PULSE 93; RESP 20; O2SAT 97
[2025-06-05 11:26] LABS: Base Excess 0.5 mmol/L (-2.0-3.0)
[2025-06-05] MEDS: FLUMAZENIL 0.1 MG/ML INJ 10ML MDV IV ONE ×3 (11:27→11:31)
--- NOTE | 2025-06-05 12:26 | DVH ---
CT HEAD WITHOUT CONTRAST INDICATION: ALOC COMPARISON: CT HEAD WITHOUT CONTRAST on DOS: 02/28/25, CT HEAD WITHOUT CONTRAST on DOS: 02/26/25, CT ANGIO HEAD on DOS: 01/18/25, CT BRAIN on DOS: 01/18/25, CT BRAIN on DOS: 01/15/25 TECHNIQUE: CT of the head without intravenous contrast. RADIATION DOSE: CTDIvol: 40.85 mGy, DLP: 780.37 mGy*cm FINDINGS: There is no evidence of acute intracranial hemorrhage, extra-axial collection, mass effect, midline shift, herniation or hydrocephalus. The ventricles, sulci and cisterns are age appropriate. The fang-white differentiation is intact. The visualized paranasal sinuses and mastoid air cells are clear. The surrounding soft tissues and osseous structures are unremarkable. IMPRESSION: 1. No evidence of acute intracranial hemorrhage, mass effect or hydrocephalus.
[2025-06-05] MEDS: LISINOPRIL 5 MG TAB PO SCH (13:32)
[2025-06-05] MEDS: FAMOTIDINE 20 MG TAB PO SCH (13:33)
[2025-06-05] MEDS: ALPRAZolam 0.5 MG TAB PO PRN (16:10)
--- NOTE | 2025-06-05 17:28 | DVHINCON2 ---
Date of Service if different f: Jun 05, 2025 Time of Service: 16:45 Consultation ([place]) Progress: Better Labs Laboratory Tests Test 06/04/25 17:37 06/04/25 20:40 06/04/25 22:23 06/04/25 22:45 B-Type Natriuretic Peptide 30.59 pg/mL (0-100) Salicylates Level < 3.0 mg/dL (-30) Acetaminophen Level < 2.0 UG/ML (10.0-20.0) Troponin I High Sensitivity 5 ng/L (</=34) Bedside Glucose 201 mg/dl (70-106) Plasma/Serum Blood Alcohol < 3.0 mg/dL (<10) Test 06/05/25 04:45 06/05/25 11:14 White Blood Count 6.1 10^3/uL (4.4-10.8) Red Blood Count 4.97 10^6/uL (4.0-5.20) Hemoglobin 13.3 g/dL (12.2-16.2) Hematocrit 40.9 % (36.0-46.0) Mean Corpuscular Volume 82.2 fL (80.0-100.0) Mean Corpuscular Hemoglobin 26.8 pg (28.0-32.0) Mean Corpuscular Hemoglobin Concent 32.6 g/dL (32.0-36.0) Red Cell Distribution Width 16.2 % (11.8-14.3) Platelet Count 216 10^3/uL (140-450) Mean Platelet Volume 7.9 fL (6.9-10.8) Neutrophils (%) (Auto) 56.2 % (37.0-80.0) Lymphocytes (%) (Auto) 30.6 % (10.0-50.0) Monocytes (%) (Auto) 10.8 % (0.0-12.0) Eosinophils (%) (Auto) 1.4 % (0.0-7.0) Basophils (%) (Auto) 1.0 % (0.0-2.0) Neutrophils # (Auto) 3.4 10 ^3/uL (1.6-8.6) Lymphocytes # (Auto) 1.9 10 ^3/uL (0.4-5.4) Monocytes # (Auto) 0.7 10 ^3/uL (0-1.3) Eosinophils # (Auto) 0.1 10 ^3/uL (0-0.8) Basophils # (Auto) 0.1 10 ^3/uL (0-0.2) Nucleated Red Blood Cells 0.3 % Sodium Level 140 mmol/L (136-145) Potassium Level 4.0 mmol/L (3.5-5.1) Chloride Level 106 mmol/L (98-107) Carbon Dioxide Level 25 mmol/L (20-31) Anion Gap 9 (5-15) Blood Urea Nitrogen 6 mg/dL (9-23) Creatinine 0.63 mg/dL (0.550-1.02) Glomerular Filtration Rate Calc 98 mL/min (>90) BUN/Creatinine Ratio 9.5 (10.0-20.0) Serum Glucose 181 mg/dL (74-106) Calcium Level 9.0 mg/dL (8.7-10.4) Magnesium Level 1.8 mg/dL (1.6-2.6) Total Bilirubin 0.5 mg/dL (0.2-1.0) Aspartate Amino Transf (AST/SGOT) 22 U/L (13-40) Alanine Aminotransferase (ALT/SGPT) 20 U/L (7-40) Alkaline Phosphatase 88 U/L (46-116) Total Protein 6.6 g/dL (5.7-8.2) Albumin 4.0 g/dL (3.2-4.8) Blood Gas Specimen Type Arterial Blood Gas Sample Site Right radial Blood Gas Patient Temperature 37.0 Arterial Blood Date Drawn [id number] Arterial Blood pH 7.373 (7.350-7.450) Arterial Blood Partial Pressure CO2 45.9 mmHg (32.0-45.0) Arterial Blood Partial Pressure O2 89.0 mmHg (83.0-108.0) Arterial Blood HCO3 26.1 mmol/L (21.0-28.0) Arterial Blood Oxygen Saturation 96.7 % (94.0-98.0) Arterial Blood Base Excess 0.5 mmol/L (-2.0-3.0) Arterial Blood Oxyhemoglobin 95.2 % (94.0-98.0) Arterial Blood Carboxyhemoglobin 1.2 % (0.5-1.5) Arterial Blood Methemoglobin 0.4 % (0.0-1.5) Arterial Blood Deoxyhemoglobin 3.2 % (0.0-5.0) Matthew Test Yes Blood Gas Total Hemoglobin 13.80 g/dL (12.0-16.0) Blood Gas Modality Nasal cannula FiO2 % 28.0 Appetite: Good Side effects of medications: No Side effects of medications: Other Appearance: Stated age Psychomotor activity: WNL Behavioral: Cooperative Eye contact: Appropriate Speech: WNL Affect: Appropriate Mood: Depressed Thought processes: Linear/Goal-directed Thought content: WNL Suicidal ideations: Absent Homicidal ideations: Absent Orientation: Person, Place, Time Memory intact: Recent Intellect: Average Abstractability: WNL Concentration: Adequate Attention: Adequate Judgement: WNL Insight: Good Vitals Vital Signs Date Time Temp Pulse Resp B/P (MAP) Pulse Ox O2 Delivery O2 Flow Rate FiO2 06/05/25 13:32 132/76 06/05/25 10:00 79 06/05/25 09:30 20 97 Nasal Cannula* 2 28 06/05/25 09:00 98.7 98.7 Current medications Current Medications Medications Dose Ordered Sig/Feng Route Start Time Stop Time Status Last Admin Dose Admin Aspirin 81 mg DAILY PO 06/05/25 10:00 06/05/25 13:33 81 MG Atorvastatin Calcium 40 mg HS PO 06/04/25 22:00 06/04/25 22:00 40 MG Gabapentin 300 mg TID PO 06/04/25 22:00 06/05/25 16:10 300 MG Lisinopril 10 mg DAILY PO 06/05/25 10:00 06/05/25 13:32 10 MG Famotidine 20 mg DAILY PO 06/05/25 10:00 06/05/25 13:33 20 MG Duloxetine HCl 60 mg DAILY PO 06/05/25 10:00 06/05/25 13:31 60 MG Metoprolol Tartrate 25 mg BID PO 06/04/25 22:00 06/04/25 22:00 25 MG Clonidine HCl 0.1 mg Q4HP PRN PO 06/04/25 20:45 Diagnostic Test (Pha) 1 strip ACHS 06/04/25 22:00 06/05/25 11:30 1 STRIP Insulin Human Regular HS SC 06/04/25 22:00 06/04/25 22:00 4 UNITS Insulin Human Regular AC SC 06/05/25 07:00 06/05/25 11:30 6 UNITS Dextrose 50 ml UD PRN IV 06/04/25 20:45 Sodium Chloride 1,000 ml @ 60 mls/hr [id number] IV 06/04/25 20:45 06/05/25 13:42 60 MLS/HR Acetaminophen/ Hydrocodone Bitart 1 tab Q4HP PRN PO 06/04/25 20:45 06/05/25 13:35 1 TAB Ondansetron HCl 4 mg Q4HP PRN IV 06/04/25 20:45 Docusate Sodium 100 mg BIDPRN PRN PO 06/04/25 20:45 Acetaminophen 650 mg Q6HP PRN PO 06/04/25 20:45 Nitroglycerin 0.4 mg Q5MINP PRN SL 06/04/25 21:00 Morphine Sulfate 2 mg Q30M PRN IV 06/04/25 21:00 Alprazolam 1 mg BID PRN PO 06/05/25 14:00 06/05/25 16:10 1 MG Medication adjusted: No Labs ordered: No Psychotherapy provided: No The patient is a 65-year-old White female who lives alone. She has a psychiatric history significant for Major Depressive Disorder and prior treatment with Prozac. She was admitted to the medical floor following an overdose on pills, and Psychiatry was consulted for evaluation of anxiety and worsening depressive symptoms status post overdose. The patient was seen and evaluated by the song writer on the medical floor via the telepsychiatry portal, in collaboration with the bedside RN. Upon evaluation, the patient appeared emotionally labile but generally calm, organized, and able to engage appropriately with the song writer and nursing staff without observable difficulty. The patient reported that she ingested pills in an attempt to alleviate acute chest pain and denied that the overdose was a suicide attempt. She stated that she is currently feeling physically better. She acknowledged feeling sad but denied pervasive depressive symptoms consistent with a major depressive episode, including anhedonia, excessive guilt, hopelessness, or severe mood dysregulation. She denied current suicidal ideation, intent, or plan, as well as any homicidal ideation. She also denied current symptoms of anxiety, including panic attacks, excessive worry, or autonomic hyperarousal. She denied auditory or visual hallucinations, and there was no evidence of delusional thinking or paranoia. The patient did not appear internally preoccupied or to be responding to internal stimuli. She denied any recent changes in sleep or appetite. During her hospital stay, she was observed interacting appropriately with staff and demonstrated no behavioral disturbances. Psychoeducation was provided regarding coping strategies, the importance of medication adherence, psychotherapy, and compliance with outpatient aftercare appointments. The patient verbalized understanding and expressed agreement with the recommended plan. Review of Systems Psychiatric: As per HPI Constitutional: Denies Eyes/ENT: Denies Respiratory: Denies Cardiovascular: Denies Gastrointestinal: Denies Musculoskeletal: Denies Neurologic: Denies Other Systems: Negative Mental Status Examination General Appearance: Elderly White female examined at bedside; no acute physical distress; fair grooming and hygiene Attitude: Alert and cooperative Eye Contact: Good Psychomotor Activity: No agitation or retardation Level of Consciousness: Awake and alert Orientation: Oriented to person, place, and time Mood: Sad Affect: Mildly anxious, congruent Speech: Decreased volume; normal rate and tone Cognition: Attention mildly impaired; recent and remote memory fair Thought Process: Logical, linear, and goal-directed Thought Content: Denies current suicidal or homicidal ideation, intent, or plan. No hallucinations or delusions Insight/Judgment: Fair Physical Examination Vital Signs As per nursing documentation Musculoskeletal / Neurological Normal body habitus Normal muscle tone and strength No extrapyramidal symptoms Normal gait and station Substance Use History Denies tobacco use Denies alcohol use Denies illicit substance use Denies history of detoxification or rehabilitation Past Psychiatric History Diagnoses: Major Depressive Disorder Prior Medications: Prozac (per history) Psychiatric Hospitalizations: Denies Suicide Attempts: Denies self-Injurious Behavior: Reports remote history of cutting and OD on pills Outpatient Psychiatric Care: Limited / inconsistent History of Violence: Denies Social History ; lives alone Denies access to firearms or weapons No service denies history of sexual, physical, or emotional abuse No legal history Past Medical History / Allergies No significant medical history reported Allergies: Not specified Family Psychiatric History Unstated History of Present Illness Assessment The patient is a 65-year-old White female with a history of Major Depressive Disorder, admitted to the medical floor following a reported overdose on pills. Although the patient denies suicidal intent and attributes the overdose to attempts to relieve chest pain, the context of depressive symptoms and psychosocial stressors raises concern for impaired judgment and distress tolerance. At the time of evaluation, the patient does not demonstrate acute suicidal or homicidal ideation, psychosis, or severe affective instability. She appears psyc hiatrically stable for discharge with appropriate outpatient follow-up and safety planning. Protective factors include cooperation with treatment, denial of active SI, and willingness to engage in aftercare. Diagnosis Psychiatric: Major Depressive Disorder, recurrent Medical: See medical team documentation Legal Status Voluntary Plan Develop and review a safety plan prior to discharge, Awaiting call back from the daughter to discuss a safe discharge planning Encourage outpatient psychiatric follow-up and psychotherapy Continue current psychiatric medications. Risks, benefits, and alternatives discussed in detail Coordinate care with primary medical team Disposition: Discharge home once medically cleared and refer to outpatient services for continuation of care KRYSTAL RAY MD Jun 05, 2025 17:28
[2025-06-05 20:00] VITALS: PULSE 88
[2025-06-05 21:00] VITALS: BP 124/75; PULSE 71; RESP 19; TEMP 97.7; O2SAT 96
[2025-06-06 05:00] VITALS: BP 114/71; PULSE 83; RESP 19; TEMP 97.8; O2SAT 97
[2025-06-06 08:00] VITALS: PULSE 66
[2025-06-06 09:00] VITALS: BP 118/71; PULSE 69; RESP 18; TEMP 98; O2SAT 90
[2025-06-06 12:54] VITALS: BP 114/66; PULSE 72; RESP 20; TEMP 98; O2SAT 96
[2025-06-06 20:00] VITALS: PULSE 74; PULSE 77
[2025-06-06] MEDS: KETOROLAC TROMETH 30 MG/ML 1ML VIAL IV ONE (20:40)
[2025-06-06 21:00] VITALS: BP 121/75; PULSE 69; RESP 17; TEMP 98.4; O2SAT 92
--- NOTE | 2025-06-06 21:07 | DVHPN2 ---
Reviewed: Care Plan, H&P, Labs, Medications, Previous Orders Changes from previous H/P or p: No Changes General: Per HPI Eyes: No Pain, No Vision change, No Conjunctivae inflammation, No Eyelid inflammation, No Other, No Redness ENT: No Ear pain, No Ear discharge, No Nose pain, No Nose discharge, No Nose congestion, No Mouth pain, No Mouth swelling, No Throat pain, No Throat swelling, No Other Cardiovascular: Chest Pain; No Palpitations, No Orthopnea, No Paroxysmal Noc. Dyspnea, No Edema, No Lt Headedness, No Other Respiratory: No Cough, No Dry, No Shortness of breath, No SOB with excertion, No Wheezing, No Hemoptysis, No Pleuritic Pain, No Sputum, No Other Gastrointestinal: No Nausea, No Vomiting, No Abdominal Pain, No Diarrhea, No Constipation, No Melena, No Hematochezia, No Other Genitourinary: No Dysuria, No Frequency, No Incontinence, No Hematuria, No Retention, No Other Musculoskeletal: No other, No neck pain, No shoulder pain, No arm pain, No back pain, No hand pain, No leg pain, No foot pain Skin: No Rash, No Lesions, No Jaundice, No Bruising, No Other Objective Vitals Vital Signs Date Time Temp Pulse Resp B/P (MAP) Pulse Ox O2 Delivery O2 Flow Rate FiO2 06/06/25 12:54 98.0 72 20 114/66 (82) 96 98.0 06/06/25 07:48 Nasal Cannula* 2 28 Intake/Output Intake and Output 06/06/25 07:00 Intake Total 1080 ml Output Total 300 ml Balance 780 ml Intake Oral 780 ml Other 300 ml Output Urine Total 300 ml # Voids 3 General Appearance: Alert, Oriented X3, Cooperative Cardiovascular: Regular rate, Normal S1, Normal S2 Medications Current Medications Medications Dose Ordered Sig/Feng Route Start Time Stop Time Status Last Admin Dose Admin Aspirin 81 mg DAILY PO 06/05/25 10:00 06/06/25 09:44 81 MG Atorvastatin Calcium 40 mg HS PO 06/04/25 22:00 06/05/25 21:31 40 MG Gabapentin 300 mg TID PO 06/04/25 22:00 06/06/25 13:29 300 MG Lisinopril 10 mg DAILY PO 06/05/25 10:00 06/06/25 09:45 10 MG Famotidine 20 mg DAILY PO 06/05/25 10:00 06/06/25 09:44 20 MG Duloxetine HCl 60 mg DAILY PO 06/05/25 10:00 06/06/25 09:44 60 MG Metoprolol Tartrate 25 mg BID PO 06/04/25 22:00 06/06/25 09:45 25 MG Clonidine HCl 0.1 mg Q4HP PRN PO 06/04/25 20:45 Diagnostic Test (Pha) 1 strip ACHS 06/04/25 22:00 06/06/25 17:18 1 STRIP Insulin Human Regular HS SC 06/04/25 22:00 06/05/25 21:38 3 UNITS Insulin Human Regular AC SC 06/05/25 07:00 06/06/25 17:19 6 UNITS Dextrose 50 ml UD PRN IV 06/04/25 20:45 Sodium Chloride 1,000 ml @ 60 mls/hr [id number] IV 06/04/25 20:45 06/06/25 05:46 60 MLS/HR Acetaminophen/ Hydrocodone Bitart 1 tab Q4HP PRN PO 06/04/25 20:45 06/06/25 16:24 1 TAB Ondansetron HCl 4 mg Q4HP PRN IV 06/04/25 20:45 Docusate Sodium 100 mg BIDPRN PRN PO 06/04/25 20:45 Acetaminophen 650 mg Q6HP PRN PO 06/04/25 20:45 Nitroglycerin 0.4 mg Q5MINP PRN SL 06/04/25 21:00 Morphine Sulfate 2 mg Q30M PRN IV 06/04/25 21:00 Alprazolam 1 mg BID PRN PO 06/05/25 14:00 06/06/25 20:38 1 MG Laboratory Results Laboratory Tests 06/05/25 04:45 Labs and/or images reviewed: Labs reviewed by me, Image(s) reviewed by me Assessment/Plan Assessment/Plan The patient is a 65-year-old female with past medical history of Coronary artery disease, hyperlipidemia, DM, hypertension, depression, and angina who presented to [facility] ED for evaluation of drug overdose. Patient reports she has been experiencing chest pain for the past 3 days and was seen at this hospital today. Patient was discharged home, but continued to experience body pain, so she took 7 tramadol 50 mg and 7 Ativan 0.5 mg to relief pain since it was still present. Patient became altered, difficult to arouse, arousable with hard sternal rub. Patient was seen and evaluated in the ED, laboratory data shows WBC 5.9, platelets 202, sodium 138, potassium 3.7, BUN 9, creatinine 0.68, GFR 96, glucose 247, calcium 8.9, BNP 30.59, troponin 5, blood pressure 107/64, heart rate 98, temperature 98.1 F, O2 saturation 97% on oxygen. Please see medication orders section in the computer. On my assessment, patient is awake, alert oriented x4, denied chest pain, no headache, dizziness, diaphoresis, shortness of breaths, no diarrhea, nausea, vomiting, fever, no chills. Patient was admitted for further evaluation and medical management. Mild tramadol abuse Chest pain Ativan use disorder, moderate Diabetes mellitus with hyperglycemia obesity pt is non-compliant with meds 06/05/2025 per discussion, pt wanted to continue Imdur as it helps with her chest pain Plan discussed with: Patient Date of Service: Jun 05, 2025 Billing Provider: SETH TAO DO Common Visit Codes: [id number] INP/OBS CARE(HIGH) SETH TAO DO Jun 06, 2025 21:07
--- NOTE | 2025-06-06 21:13 | DVHPN2 ---
Reviewed: Care Plan, H&P, Labs, Medications, Previous Orders Changes from previous H/P or p: No Changes General: Per HPI Eyes: No Pain, No Vision change, No Conjunctivae inflammation, No Eyelid inflammation, No Other, No Redness ENT: No Ear pain, No Ear discharge, No Nose pain, No Nose discharge, No Nose congestion, No Mouth pain, No Mouth swelling, No Throat pain, No Throat swelling, No Other Cardiovascular: Chest Pain; No Palpitations, No Orthopnea, No Paroxysmal Noc. Dyspnea, No Edema, No Lt Headedness, No Other Respiratory: No Cough, No Dry, No Shortness of breath, No SOB with excertion, No Wheezing, No Hemoptysis, No Pleuritic Pain, No Sputum, No Other Gastrointestinal: No Nausea, No Vomiting, No Abdominal Pain, No Diarrhea, No Constipation, No Melena, No Hematochezia, No Other Genitourinary: No Dysuria, No Frequency, No Incontinence, No Hematuria, No Retention, No Other Musculoskeletal: No other, No neck pain, No shoulder pain, No arm pain, No back pain, No hand pain, No leg pain, No foot pain Skin: No Rash, No Lesions, No Jaundice, No Bruising, No Other Objective Vitals Vital Signs Date Time Temp Pulse Resp B/P (MAP) Pulse Ox O2 Delivery O2 Flow Rate FiO2 06/06/25 12:54 98.0 72 20 114/66 (82) 96 98.0 06/06/25 07:48 Nasal Cannula* 2 28 Intake/Output Intake and Output 06/06/25 07:00 Intake Total 1080 ml Output Total 300 ml Balance 780 ml Intake Oral 780 ml Other 300 ml Output Urine Total 300 ml # Voids 3 General Appearance: Alert, Oriented X3, Cooperative Cardiovascular: Regular rate, Normal S1, Normal S2 Medications Current Medications Medications Dose Ordered Sig/Feng Route Start Time Stop Time Status Last Admin Dose Admin Aspirin 81 mg DAILY PO 06/05/25 10:00 06/06/25 09:44 81 MG Atorvastatin Calcium 40 mg HS PO 06/04/25 22:00 06/05/25 21:31 40 MG Gabapentin 300 mg TID PO 06/04/25 22:00 06/06/25 13:29 300 MG Lisinopril 10 mg DAILY PO 06/05/25 10:00 06/06/25 09:45 10 MG Famotidine 20 mg DAILY PO 06/05/25 10:00 06/06/25 09:44 20 MG Duloxetine HCl 60 mg DAILY PO 06/05/25 10:00 06/06/25 09:44 60 MG Metoprolol Tartrate 25 mg BID PO 06/04/25 22:00 06/06/25 09:45 25 MG Clonidine HCl 0.1 mg Q4HP PRN PO 06/04/25 20:45 Diagnostic Test (Pha) 1 strip ACHS 06/04/25 22:00 06/06/25 17:18 1 STRIP Insulin Human Regular HS SC 06/04/25 22:00 06/05/25 21:38 3 UNITS Insulin Human Regular AC SC 06/05/25 07:00 06/06/25 17:19 6 UNITS Dextrose 50 ml UD PRN IV 06/04/25 20:45 Sodium Chloride 1,000 ml @ 60 mls/hr [id number] IV 06/04/25 20:45 06/06/25 05:46 60 MLS/HR Acetaminophen/ Hydrocodone Bitart 1 tab Q4HP PRN PO 06/04/25 20:45 06/06/25 16:24 1 TAB Ondansetron HCl 4 mg Q4HP PRN IV 06/04/25 20:45 Docusate Sodium 100 mg BIDPRN PRN PO 06/04/25 20:45 Acetaminophen 650 mg Q6HP PRN PO 06/04/25 20:45 Nitroglycerin 0.4 mg Q5MINP PRN SL 06/04/25 21:00 Morphine Sulfate 2 mg Q30M PRN IV 06/04/25 21:00 Alprazolam 1 mg BID PRN PO 06/05/25 14:00 06/06/25 20:38 1 MG Laboratory Results Laboratory Tests 06/05/25 04:45 Assessment/Plan Assessment/Plan The patient is a 65-year-old female with past medical history of Coronary artery disease, hyperlipidemia, DM, hypertension, depression, and angina who presented to [facility] ED for evaluation of drug overdose. Patient reports she has been experiencing chest pain for the past 3 days and was seen at this hospital today. Patient was discharged home, but continued to experience body pain, so she took 7 tramadol 50 mg and 7 Ativan 0.5 mg to relief pain since it was still present. Patient became altered, difficult to arouse, arousable with hard sternal rub. Patient was seen and evaluated in the ED, laboratory data shows WBC 5.9, platelets 202, sodium 138, potassium 3.7, BUN 9, creatinine 0.68, GFR 96, glucose 247, calcium 8.9, BNP 30.59, troponin 5, blood pressure 107/64, heart rate 98, temperature 98.1 F, O2 saturation 97% on oxygen. Please see medication orders section in the computer. On my assessment, patient is awake, alert oriented x4, denied chest pain, no headache, dizziness, diaphoresis, shortness of breaths, no diarrhea, nausea, vomiting, fever, no chills. Patient was admitted for further evaluation and medical management. Mild tramadol abuse Chest pain Ativan use disorder, moderate Diabetes mellitus with hyperglycemia obesity pt is non-compliant with meds 06/05/2025 per discussion, pt wanted to continue Imdur as it helps with her chest pain 06/06/2025: pt states she 'passed out' because of narcolepsy, not from overdose. if continues to do well, pt can be discharged in AM Plan discussed with: Patient Date of Service: Jun 06, 2025 Billing Provider: SETH TAO DO Common Visit Codes: [id number] INP/OBS CARE(HIGH) SETH TAO DO Jun 06, 2025 21:13
[2025-06-07] VITALS (7 sets, daily range): BP systolic 113–127; BP diastolic 60–66; PULSE 7–70; RESP 17–18; TEMP 97.6–98.2; O2SAT 94–98
[2025-06-07] MEDS: MECLIZINE HCL 25 MG TAB PO ONE (06:03)
[2025-06-07] MEDS: MORPHINE SULFATE 4 MG/ML SYR/VIAL ONE (09:03)
--- NOTE | 2025-06-07 16:22 | DVHINCON2 ---
Date of service: Jun 07, 2025 History of Present Illness HPI Patient is a 65-year-old female who originally presented to the hospital on June 04, 2025 for drug overdose. It seems that on the same day the patient had presented with chest discomfort and was discharged home. When she reached home she took 7 tablets of Ativan and 7 tablets of tramadol and was brought back to the hospital for altered mental status. At that point she was barely arousa ble. Since that point, the patient is being managed in the hospital and tele unit. Has been seen by Psychiatry. On June 07, 2025 I was called for cardiac evaluation. Patient denies any chest pain in the past 2 days. Patient is known to our practice from outside and before. She does have history of aortic stenosis and diastolic heart failure. Aortic stenosis has been moderate in severity and was last checked in January 2025. She had a left heart catheterization in February 2024 which did not reveal any coronary artery disease. Since admission, serial high sensitive troponin has been negative and BNP was normal. Home Meds Active Scripts Isosorbide Mononitrate (Isosorbide Mononitrate Er) 30 Mg Tab, 1 TAB PO DAILY for 30 Days, #30 TAB 5 Refills Prov:JUSTIN ONTIVEROS STEEPLECHASE JOCKEY 03/14/25 Tramadol HCl (Tramadol HCl) 50 Mg Tab, 50 MG PO TID PRN, #30 TAB Prov:CECILIA BRITO MD 10/07/24 Lorazepam (ATIVAN TABLET) 0.5 Mg Tb, 1 TAB PO TID PRN, #30 TAB Prov:CECILIA BRITO MD 10/07/24 Gabapentin (Gabapentin) 300 Mg Cap, 300 MG PO TID for 30 Days, #90 CAP 3 Refills Prov:SETH TAO DO 08/16/24 Reported Medications Duloxetine HCl (Duloxetine HCl) 60 Mg Cap, 1 CAP PO DAILY for 30 Days, #30 06/03/25 Estradiol Vaginal (Estradiol) 0.1 Mg/Gm Cre, MG VG DAILY for 21 Days, #42.5 06/03/25 Tirzepatide (Mounjaro) 5 Mg/0.5 Ml Inj, 5 MG SC QWEEKLY for 28 Days, #2 06/03/25 Insulin Glargine-Yfgn (Insulin Glargine) 100 Unit/Ml Inj, 0-80 UNIT SC BID for 28 Days, #45 06/03/25 Insulin Regular (Human) (Novolin R Flexpen) 100 Unit/Ml Inj, UNITS SC UD for 33 Days, #15 06/03/25 Metoprolol Tartrate (Lopressor) 25 Mg Tb, 1 TAB PO BID for 30 Days, #60 06/03/25 Atorvastatin Calcium (ATORVASTATIN CALCIUM) 40 Mg Tab, 1 TAB PO HS for 90 Days, #90 01/27/25 Omeprazole (Gnp Omeprazole) 20 Mg Tab, 20 MG PO DAILY, TAB 12/04/24 Aspirin (Aspirin Low Dose) 81 Mg Chw, 81 MG PO DAILY, TAB.CHEW 12/04/24 Semaglutide (Ozempic) 4 Mg/3 Ml Inj, 2 MG SC QWEEKLY, INJ 09/05/24 Mesalamine (Mesalamine Dr) 400 Mg Cap, 2 CAP PO BID 09/05/24 Pitolisant Hydrochloride (Wakix) 17.8 Mg Tab, 2 TAB PO DAILY for NARCOLEPSY for 90 Days, #180 11/02/21 Lisinopril (Lisinopril) 10 Mg Tab, 10 MG PO DAILY for 30 Days, MG 07/26/16 Discontinued Reported Medications Metoprolol Succinate (Metoprolol Succinate Er) 25 Mg Tab, 1 TAB PO DAILY 02/26/25 Past Medical History Others Past medical history includes morbid obesity, diabetes mellitus, hyperlipidemia, hypertension, 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 She has had neural stimulator implantation secondary to chronic back pain. Patient Family History: Colon cancer G8 MOTHER, , Onset:Unknown Depression G8 MOTHER, , Onset:Unknown Diabetes mellitus G8 MOTHER, , Onset:Unknown G8 BROTHER, Onset:Unknown Family history: Diabetes mellitus G8 MOTHER, (mother) G8 BROTHER (older brother) Family history: Hypertension G8 BROTHER (brothers) Ischemic heart disease G8 MOTHER, Prostate carcinoma G8 FATHER, Smoker: No Hx (Negative) Lives with: With family Review of Systems Constitutional: No symptom reported Ears, Nose, & Throat: No symptom reported Pulmonary/Respiratory: Dyspnea Cardiovascular: Chest Pain All Other Systems 14 point review of system was performed. Relevant findings as per above and as per HPI. Otherwise negative. H&P Exam Vital Signs Vital Signs Date Time Temp Pulse Resp B/P (MAP) Pulse Ox O2 Delivery O2 Flow Rate FiO2 06/07/25 15:15 98.2 67 17 06/07/25 12:30 122/63 (82) 94 06/07/25 08:30 Room Air* 0 21 Labs/Xrays Labs Test 06/07/25 11:23 06/05/25 11:14 06/05/25 04:45 06/04/25 22:45 Range/Units POC Glucose 251 H 70-106 mg/dl Blood Gas Specimen Type Arterial Blood Gas Sample Site Right radial Blood Gas Patient Temperature 37.0 Arterial Blood Date Drawn [id number] Arterial Blood pH 7.373 7.350-7.450 Arterial Blood Partial Pressure CO2 45.9 H 32.0-45.0 mmHg Arterial Blood Partial Pressure O2 89.0 83.0-108.0 mmHg Arterial Blood HCO3 26.1 21.0-28.0 mmol/L Arterial Blood Oxygen Saturation 96.7 94.0-98.0 % Arterial Blood Base Excess 0.5 -2.0-3.0 mmol/L Arterial Blood Oxyhemoglobin 95.2 94.0-98.0 % Arterial Blood Carboxyhemoglobin 1.2 0.5-1.5 % Arterial Blood Methemoglobin 0.4 0.0-1.5 % Arterial Blood Deoxyhemoglobin 3.2 0.0-5.0 % Matthew Test Yes Blood Gas Total Hemoglobin 13.80 12.0-16.0 g/dL Blood Gas Modality Nasal cannula FiO2 % 28.0 White Blood Count 6.1 4.4-10.8 10^3/uL Red Blood Count 4.97 4.0-5.20 10^6/uL Hemoglobin 13.3 12.2-16.2 g/dL Hematocrit 40.9 36.0-46.0 % Mean Corpuscular Volume 82.2 80.0-100.0 fL Mean Corpuscular Hemoglobin 26.8 L 28.0-32.0 pg Mean Corpuscular Hemoglobin Concent 32.6 32.0-36.0 g/dL Red Cell Distribution Width 16.2 H 11.8-14.3 % Platelet Count 216 140-450 10^3/uL Mean Platelet Volume 7.9 6.9-10.8 fL Neutrophils (%) (Auto) 56.2 37.0-80.0 % Lymphocytes (%) (Auto) 30.6 10.0-50.0 % Monocytes (%) (Auto) 10.8 0.0-12.0 % Eosinophils (%) (Auto) 1.4 0.0-7.0 % Basophils (%) (Auto) 1.0 0.0-2.0 % Neutrophils # (Auto) 3.4 1.6-8.6 10 ^3/uL Lymphocytes # (Auto) 1.9 0.4-5.4 10 ^3/uL Monocytes # (Auto) 0.7 0-1.3 10 ^3/uL Eosinophils # (Auto) 0.1 0-0.8 10 ^3/uL Basophils # (Auto) 0.1 0-0.2 10 ^3/uL Nucleated Red Blood Cells 0.3 % Sodium Level 140 136-145 mmol/L Potassium Level 4.0 3.5-5.1 mmol/L Chloride Level 106 98-107 mmol/L Carbon Dioxide Level 25 20-31 mmol/L Anion Gap 9 5-15 Blood Urea Nitrogen 6 L 9-23 mg/dL Creatinine 0.63 0.550-1.02 mg/dL Glomerular Filtration Rate Calc 98 >90 mL/min BUN/Creatinine Ratio 9.5 L 10.0-20.0 Serum Glucose 181 H 74-106 mg/dL Calcium Level 9.0 8.7-10.4 mg/dL Magnesium Level 1.8 1.6-2.6 mg/dL Total Bilirubin 0.5 0.2-1.0 mg/dL Aspartate Amino Transferase (AST) 22 13-40 U/L Alanine Aminotransferase (ALT) 20 7-40 U/L Alkaline Phosphatase 88 46-116 U/L Total Protein 6.6 5.7-8.2 g/dL Albumin 4.0 3.2-4.8 g/dL Plasma/Serum Blood Alcohol < 3.0 <10 mg/dL Test 06/04/25 20:40 06/04/25 17:37 Range/Units Troponin I High Sensitivity 5 </=34 ng/L B-Type Natriuretic Peptide 30.59 0-100 pg/mL Salicylates Level < 3.0 -30 mg/dL Acetaminophen Level < 2.0 L 10.0-20.0 UG/ML Assessment/Plan Plan Patient is a 65-year-old female who originally presented to the hospital on June 04, 2025 for drug overdose. It seems that on the same day the patient had presented with chest discomfort and was discharged home. When she reached home she took 7 tablets of Ativan and 7 tablets of tramadol and was brought back to the hospital for altered mental status. At that point she was barely arousable. Since that point, the patient is being managed in the hospital and tele unit. Has been seen by Psychiatry. On June 07, 2025 I was called for cardiac evaluation. Patient denies any chest pain in the past 2 days. Patient is known to our practice from outside and before. She does have history of aortic stenosis and diastolic heart failure. Aortic stenosis has been moderate in severity and was last checked in January 2025. She had a left heart ca theterization in February 2024 which did not reveal any coronary artery disease. Since admission, serial high sensitive troponin has been negative and BNP was normal. Obese patient. Lying flat in bed. Not using accessory muscles of breathing. No JVD. Mucosa is pink and wet. No goiter. No carotid bruit. Lungs are clear to auscultation. Cardiac: Regular, no thrill/gallop. Systolic murmur 3/6 in the base is heard. Abdomen is soft and obese. Bowel sound is positive. There is no gross mass/hepatomegaly. 1+ bilateral pitting edema is felt. Dorsalis pedis is 2+ bilateral. There was no gross lateralized neurologic deficit. Past medical history includes morbid obesity, diabetes mellitus, hyperlipidemia, hypertension, old history of repeated CVA (status post management by tPA), diastolic heart failure, valvular heart disease (moderate aortic stenosis), obstructive sleep apnea, ulcerative colitis, depression, Ativan use disorder, history of noncompliance and also status post cervical fusion/laminec tera/cholecystectomy/appendectomy//hernia surgery/tubal ligation and right ankle surgery. She has had neural stimulator implantation secondary to chronic back pain. Echocardiogram of August 2024 reported ejection fraction of 65%, peak/mean press ure gradient across aortic valve of 44/25 mm Hg. Aortic valve area was calculated and reported at 1.1 centimeter squared Echocardiogram of January 29, 2025 reported ejection fraction of 55%, concentric left ventricular hypertrophy, pseudo normal LV filling, mild right ventricular enlargement with good systolic function, moderate left atrial enlargement, mild right atrial enlargement, bicuspid aortic valve could not be ruled out, moderate aortic stenosis/mild aortic insufficiency, peak/mean pressure gradient across aortic valve of 58/34 mm Hg. Mitral annular calcification, trace MR/TR, calculated aortic valve area 1.5 centimeter squared and right ventricular systolic pressure of 39 mm Hg. Nuclear stress test of September 11, 2023 reported normal perfusion and ejection fraction of 65% Left heart catheterization of March 09, 2024 did not reveal any epicardial coronary artery disease and there was no pressure gradient across aortic valve reported Creatinine: 0.68 - 0.63 Potassium: 3.7 - 4.0 Magnesium: 1.8 Troponin (high sensitive): 6 - 5 - 5 BNP: 30.59 Chest x-ray revealed: FINDINGS/IMPRESSION: The lungs are clear. The cardiomediastinal silhouette is enlarged, likely accentuated by technique. No pleural effusion or pneumothorax. Unchanged osseous structures. Spinal stimulator leads are partially visualized. Cervical fusion hardware is noted. CT of the head revealed: IMPRESSION: 1. No evidence of acute intracranial hemorrhage, mass effect or hydrocephalus. Telemetry reveals sinus rhythm Patient is a 65-year-old morbidly obese female who presented with drug overdose and was managed for encephalopathy on telemetry unit. Has been seen by Psychiatry. Has been experiencing atypical chest pain. Does have baseline history of diastolic heart failure and valvular heart disease. Her aortic valve stenosis has been deemed moderate in amount in January 2025. Has been noncompliant with medication and followups. Presentation is not considered acute coronary syndrome. Repeat evaluation of aortic valve stenosis by echocardiogram can be justified (can be electively performed as outpatient also). Drug overdose Ativan use disorder Morbid obesity Valvular heart disease Moderate aortic stenosis Diabetes mellitus Hypertension Hyperlipidemia Depression Diastolic heart failure Cardiac suggestion for management: Managed on telemetry Follow-up electrolytes and kidney function tests and correct abnormalities Keep potassium above 4 and magnesium above 2 Imdur (long-acting): 30 mg daily is advised Continue aspirin/statin Echocardiogram (can be performed as outpatient) Lifestyle and risk factor modifications Patient was counseled to be compliant with medication and followups Patient was counseled to lose weight Further evaluation and management depends on the above and clinical course Thank you for consultation A total of 75 minutes was spent reviewing the patient record, examining the patient, making a diagnostic and therapeutic plan, discussing this plan with medical personnel, following up on diagnostic studies and following the patient for clinical stability excluding any and all procedures. At least 50% of this time was spent in direct, [id number] contact. Thank you for allowing me to participate in this patient's care. Further recommendations will depend on patient's clinical course. Please do not hesitate to contact me if you have any questions or concerns. This medical document was created using electronic medical record system with [employer] computerized dictation system. Although this document has been carefully reviewed, there may still be some phonetic and typographical errors. These areas are purely typographical due to the imperfection of the software programs, and do not reflect any compromise in the patient's medical care. Plan discussed with: Patient, Other (nurse) CHRIS ZABALA MD Jun 07, 2025 16:22
[2025-06-07] MEDS: KETOROLAC TROMETH 30 MG/ML 1ML VIAL IV ONE (16:47)
[2025-06-07] MEDS ORDERED: ISOSORBIDE MONONITRATE ER 60 MG TAB PO SCH (17:10)
--- NOTE | 2025-06-07 22:06 | DVHDS2 ---
Discharge Summary Date of Admission Jun 04, 2025 at 20:59 Date of Discharge: Jun 07, 2025 Labs/Diagnostic Data: Laboratory Results Test 06/07/25 11:23 06/05/25 11:14 06/05/25 04:45 06/04/25 22:45 POC Glucose 251 mg/dl (70-106) Blood Gas Specimen Type Arterial Blood Gas Sample Site Right radial Blood Gas Patient Temperature 37.0 Arterial Blood Date Drawn [id number] Arterial Blood pH 7.373 (7.350-7.450) Arterial Blood Partial Pressure CO2 45.9 mmHg (32.0-45.0) Arterial Blood Partial Pressure O2 89.0 mmHg (83.0-108.0) Arterial Blood HCO3 26.1 mmol/L (21.0-28.0) Arterial Blood Oxygen Saturation 96.7 % (94.0-98.0) Arterial Blood Base Excess 0.5 mmol/L (-2.0-3.0) Arterial Blood Oxyhemoglobin 95.2 % (94.0-98.0) Arterial Blood Carboxyhemoglobin 1.2 % (0.5-1.5) Arterial Blood Methemoglobin 0.4 % (0.0-1.5) Arterial Blood Deoxyhemoglobin 3.2 % (0.0-5.0) Matthew Test Yes Blood Gas Total Hemoglobin 13.80 g/dL (12.0-16.0) Blood Gas Modality Nasal cannula FiO2 % 28.0 White Blood Count 6.1 10^3/uL (4.4-10.8) Red Blood Count 4.97 10^6/uL (4.0-5.20) Hemoglobin 13.3 g/dL (12.2-16.2) Hematocrit 40.9 % (36.0-46.0) Mean Corpuscular Volume 82.2 fL (80.0-100.0) Mean Corpuscular Hemoglobin 26.8 pg (28.0-32.0) Mean Corpuscular Hemoglobin Concent 32.6 g/dL (32.0-36.0) Red Cell Distribution Width 16.2 % (11.8-14.3) Platelet Count 216 10^3/uL (140-450) Mean Platelet Volume 7.9 fL (6.9-10.8) Neutrophils (%) (Auto) 56.2 % (37.0-80.0) Lymphocytes (%) (Auto) 30.6 % (10.0-50.0) Monocytes (%) (Auto) 10.8 % (0.0-12.0) Eosinophils (%) (Auto) 1.4 % (0.0-7.0) Basophils (%) (Auto) 1.0 % (0.0-2.0) Neutrophils # (Auto) 3.4 10 ^3/uL (1.6-8.6) Lymphocytes # (Auto) 1.9 10 ^3/uL (0.4-5.4) Monocytes # (Auto) 0.7 10 ^3/uL (0-1.3) Eosinophils # (Auto) 0.1 10 ^3/uL (0-0.8) Basophils # (Auto) 0.1 10 ^3/uL (0-0.2) Nucleated Red Blood Cells 0.3 % Sodium Level 140 mmol/L (136-145) Potassium Level 4.0 mmol/L (3.5-5.1) Chloride Level 106 mmol/L (98-107) Carbon Dioxide Level 25 mmol/L (20-31) Anion Gap 9 (5-15) Blood Urea Nitrogen 6 mg/dL (9-23) Creatinine 0.63 mg/dL (0.550-1.02) Glomerular Filtration Rate Calc 98 mL/min (>90) BUN/Creatinine Ratio 9.5 (10.0-20.0) Serum Glucose 181 mg/dL (74-106) Calcium Level 9.0 mg/dL (8.7-10.4) Magnesium Level 1.8 mg/dL (1.6-2.6) Total Bilirubin 0.5 mg/dL (0.2-1.0) Aspartate Amino Transferase (AST) 22 U/L (13-40) Alanine Aminotransferase (ALT) 20 U/L (7-40) Alkaline Phosphatase 88 U/L (46-116) Total Protein 6.6 g/dL (5.7-8.2) Albumin 4.0 g/dL (3.2-4.8) Plasma/Serum Blood Alcohol < 3.0 mg/dL (<10) Test 06/04/25 20:40 06/04/25 17:37 Troponin I High Sensitivity 5 ng/L (</=34) B-Type Natriuretic Peptide 30.59 pg/mL (0-100) Salicylates Level < 3.0 mg/dL (-30) Acetaminophen Level < 2.0 UG/ML (10.0-20.0) Other Laboratory Tests 06/05/25 04:45 Brief Hx & Hospital Course: Patient was admitted for chest pain. Prior to admission patient was seen for chest discomfort and was discharged home. Upon arriving home patient reportedly took several tablets of Ativan and Tramadol and became altered and difficult to arouse. Patient was brought back to the hospital and admitted. Cardiology consulted. ACS was ruled out. Chest x-ray was negative. Troponin and BNP were normal. Patient was cleared for discharge home. She was instructed to follow up with her PCP. The patient received proper medical treatment and medications. Vital signs, Imaging and Laboratory Work was monitored. All consults recommendations were followed as provided. There were no complaints or new complaints upon discharge, all questions and concerns were answered. Patient was advised to return to the ER or call 911 if any headaches, dizziness, shortness of breath, chest pain, bleeding, fevers, or worsening of medical condition. Patient/Family was counseled about treatment plan, medications, possible side effects, patientverbalized understanding. All questions were answered to the best of my ability. The patient symptoms improved and they are okay to be DC. Condition at Discharge: Stable Final Diagnosis/Problems List Chest pain, ruled out ACS Chronic pain syndrome Morbid obesity Severe anxiety Discharge Disposition: Home Discharge Instruct/Medications Diet: Consistent carbohydrate Activity: No Restrictions, As Tolerated Scheduled Aspirin (Aspirin Low Dose), 81 MG PO DAILY, (Reported) Atorvastatin Calcium (Atorvastatin Calcium), 1 TAB PO HS, (Reported) Duloxetine HCl (Duloxetine HCl), 1 CAP PO DAILY, (Reported) Estradiol Vaginal (Estradiol), MG VG DAILY, (Reported) Gabapentin (Gabapentin), 300 MG PO TID Insulin Glargine-Yfgn (Insulin Glargine), 0-80 UNIT SC BID, (Reported) Insulin Regular (Human) (Novolin R Flexpen), UNITS SC UD, (Reported) Isosorbide Mononitrate (Isosorbide Mononitrate Er), 1 TAB PO DAILY Lisinopril (Lisinopril), 10 MG PO DAILY, (Reported) Mesalamine (Mesalamine Dr), 2 CAP PO BID, (Reported) Metoprolol Tartrate (Lopressor), 1 TAB PO BID, (Reported) Omeprazole (Gnp Omeprazole), 20 MG PO DAILY, (Reported) Pitolisant Hydrochloride (Wakix), 2 TAB PO DAILY, (Reported) Semaglutide (Ozempic), 2 MG SC QWEEKLY, (Reported) Tirzepatide (Mounjaro), 5 MG SC QWEEKLY, (Reported) Scheduled PRN Lorazepam (Ativan Tablet), 1 TAB PO TID PRN Tramadol HCl (Tramadol HCl), 50 MG PO TID PRN Discontinued Medications Metoprolol Succinate (Metoprolol Succinate Er), 1 TAB PO DAILY, (Reported) Discontinued Reason: Prescription changed Discharge Statement: "Patient was advised to return to the ER or call 911 if any headaches, dizziness, shortness of breath, chest pain, abdominal pain, bleeding, fevers, or worsening of medical condition. Patient was counseled about treatment plan, medications, possible side effects, patientverbalized understanding. All questions were answered to the best of my ability. This discharge took greater then 30 minutes in planning, reviewing documentation, counseling the patient, and discussing with other team members." ASSESSMENT ASSESSMENT Assessment TRUONG FORRESTER MD Jun 07, 2025 22:06
== END 2025-06-07 16:54 | disposition home or self-care (01) | DRG 917 ==
LOC: EDBD 16:06 → ER 16:06 → OVERFLOW 20:59 → TELE-WESTW 06-05 02:10 → OVERFLOW 06-05 03:11 → TELE-WESTW 06-05 09:00
PROVIDERS: ADMIT Internal Medicine; ATTEND Internal Medicine
DX: T42.4X1A Poisoning by benzodiazepines, accidental (unintentional), initial encounter (principal); G92.8 Other toxic encephalopathy; I50.32 Chronic diastolic (congestive) heart failure; F13.20 Sedative, hypnotic or anxiolytic dependence, uncomplicated; F33.9 Major depressive disorder, recurrent, unspecified; I11.0 Hypertensive heart disease with heart failure; E11.65 Type 2 diabetes mellitus with hyperglycemia; I35.0 Nonrheumatic aortic (valve) stenosis; E66.01 Morbid (severe) obesity due to excess calories; Z68.42 Body mass index [BMI] 45.0-49.9, adult; T40.421A Poisoning by tramadol, accidental (unintentional), initial encounter; I25.10 Atherosclerotic heart disease of native coronary artery without angina pectoris; E78.5 Hyperlipidemia, unspecified; G89.4 Chronic pain syndrome; F19.10 Other psychoactive substance abuse, uncomplicated; F41.9 Anxiety disorder, unspecified; Z86.73 Personal history of transient ischemic attack (TIA), and cerebral infarction without residual deficits; Z90.49 Acquired absence of other specified parts of digestive tract; Z98.891 History of uterine scar from previous surgery; Z98.51 Tubal ligation status; Z98.1 Arthrodesis status; Z96.612 Presence of left artificial shoulder joint; Z88.2 Allergy status to sulfonamides; Z88.8 Allergy status to other drugs, medicaments and biological substances; Z91.148 Patient's other noncompliance with medication regimen for other reason; Z91.52 Personal history of nonsuicidal self-harm; Z79.899 Other long term (current) drug therapy; Z79.4 Long term (current) use of insulin; Z79.82 Long term (current) use of aspirin; Z83.3 Family history of diabetes mellitus; Z82.49 Family history of ischemic heart disease and other diseases of the circulatory system; Z80.0 Family history of malignant neoplasm of digestive organs; Y92.89 Other specified places as the place of occurrence of the external cause
CPT/HCPCS: 36415; 36600; 70450; 71045; 80053; 80320; 80329; 82805; 82962; 83735; 83880; 84484; 85025; 96361; 96374; G0378; J1815; J1885